=== PATIENT | male | born 1950 | race Asian ===

== ENCOUNTER 2020-12-21 13:29 | Outpatient (REF) | payer MEDICARE, SELFPAY ==
[2020-12-21 14:31] LABS: MANUAL DIFF FLAG NO
[2020-12-21 14:37] LABS: Basophils Absolute Auto 0.1 X10*3/uL (0.0-0.2); Basophils Percent Auto 0.7 % (0-2); Eosinophils Absolute Auto 0.4 X10*3/uL (0.0-0.4); Eosinophils Percent Auto 6.2 % (0-4); Hematocrit 30.8 % (42-52); Hemoglobin 9.8 g/dl (14.0-18.0); Imm Gran Abs Auto 0.02 X10*3/uL (0.00-0.03); Imm Gran Pct Auto 0.3 % (0.0-0.4); Lymphocytes Absolute Auto 1.4 X10*3/uL (1.2-4.9); Lymphocytes Percent Auto 21.2 % (20-40); Mean Corpuscular HGB Conc 31.8 g/dl (31.0-36.0); Mean Corpuscular Hemoglobin 30.6 pg (27.0-33.0); Mean Corpuscular Volume 96.3 fL (80-98); Mean Platelet Volume 10.5 fL (9.4-12.4); Monocytes Absolute Auto 0.5 X10*3/uL (0.1-1.2); Monocytes Percent Auto 7.1 % (2-11); Neutrophils Absolute Auto 4.4 X10*3/uL (2.0-8.3); Neutrophils Percent Auto 64.5 % (45-73); Platelet Count 203 X10*3/uL (160-400); Red Cell Distribution Width 14.7 % (11.0-16.0); White Blood Count 6.8 X10*3/uL (4.8-10.8)
[2020-12-21 14:45] LABS: Estimated Average Glucose 103 mg/dL; Hemoglobin A1c % 5.2 %
[2020-12-21 14:55] LABS: Cholesterol 213 mg/dL; HDL Cholesterol 41 mg/dL; LDL Cholesterol Calculated 136 mg/dl; Triglycerides 183 mg/dL
[2020-12-21 14:56] LABS: Alanine Aminotransferase 23 U/L (0-40); Albumin Level 3.6 g/dL (3.5-5.0); Alkaline Phosphatase 247 U/L (39-117); Anion Gap 13 (12-20); Aspartate Amino Transferase 24 U/L (5-37); Bilirubin Total 0.3 mg/dL (0.0-1.0); Blood Urea Nitrogen 19 mg/dL (9-16); Calcium 9.2 mg/dL (8.4-10.2); Carbon Dioxide 17 mmol/L (22-29); Chloride 108 mmol/L (96-108); Estimated Glomerular Filt Rate > 60; Glucose Random 202 mg/dL (60-115); Potassium 4.4 mmol/L (3.3-5.1); Sodium 134 mmol/L (135-145); Total Protein 7.5 g/dL (6.5-8.0)
[2020-12-21 15:18] LABS: Ferritin 1096 ng/mL (20-250)
[2020-12-21 15:24] LABS: Vitamin B12 682 pg/mL (200-900)
== END 2020-12-21 13:30 | disposition home or self-care (01) ==
LOC: HO.LAB 13:29
PROVIDERS: PCP Internal Medicine; Visit Provider Internal Medicine
DX: D64.89 Other specified anemias (principal); E11.9 Type 2 diabetes mellitus without complications; I10 Essential (primary) hypertension; Z85.51 Personal history of malignant neoplasm of bladder
CPT/HCPCS: 36415; 80053; 80061; 82607; 82728; 83036; 85025

== ENCOUNTER 2021-01-16 12:41 | Outpatient (REF) | payer MEDICARE, SELFPAY ==
[2021-01-19 14:31] LABS: TS Negative Control Passed; TS Panel A 4; TS Panel B 0; TS Positive Control Passed; TSpotTB Negative (SeeBelow)
== END 2021-01-16 12:42 | disposition home or self-care (01) ==
LOC: HO.LAB 12:41
PROVIDERS: PCP Internal Medicine; Visit Provider Internal Medicine
DX: Z11.7 Encounter for testing for latent tuberculosis infection (principal)
CPT/HCPCS: 36415; 86481

== ENCOUNTER → 2021-02-14 15:26 | Outpatient (BNVA) | payer MEDICARE, SELFPAY | PROVIDERS: PCP Internal Medicine; Visit Provider Urology | DX: N39.0 Urinary tract infection, site not specified (principal); R39.15 Urgency of urination; C67.9 Malignant neoplasm of bladder, unspecified | CPT/HCPCS: 99202 ==

== ENCOUNTER 2021-03-12 14:25 | Emergency (ER) | payer MEDICARE, SELFPAY ==
--- NOTE | ~2021-03-12 | XR_ITS ---
EXAMINATION: XR CHEST CLINICAL INFORMATION: Fever COMPARISON: 05/26/2019 TECHNIQUE: Frontal view of the chest was obtained. FINDINGS: No significant abnormality is noted involving the heart, lungs, mediastinum, bony thorax or soft tissues. XR/XR chest 1V IMPRESSION: Unremarkable examination.
[2021-03-12 15:44] VITALS: BP 139/71; PULSE 75; RESP 20; TEMP 36.4; O2SAT 99; BMI 23.8
--- NOTE | 2021-03-12 18:19 | ED_ITS ---
HPI - Fever General Chief Complaint: Fever Stated Complaint: chills fever Time Seen by Provider: 03/12/21 18:19 Source: patient and family (Spouse) Mode of arrival: ambulatory Limitations: no limitations History of Present Illness HPI Narrative: 70-year-old male came in for evaluation of fever and chills. 70-year-old male with history of urinary bladder cancer status post radical cystectomy with ileal conduit history of recurrent urinary tract infections in the past, patient came in with intermittent subjective fever and chills for the past few days. Patient is following with Dr. Narayan for post cancer follow-up. Patient in the emergency department is afebrile. Patient takes Macrobid once a day for the past 3 months as prophylactic antibiotic. Related Data Previous Rx's Medication Instructions Recorded levofloxacin 750 mg tablet 750 mg PO DAILY #7 tab 03/12/21 Allergies Allergy/AdvReac Type Severity Reaction Status Date / Time aspirin Allergy Unknown Verified 03/12/21 15:43 ibuprofen AdvReac Unknown Verified 03/12/21 15:43 Review of Systems Review of Systems: All other systems are reviewed and are negative Constitutional: Reports as per HPI and Reports no additional constitutional complaints Eyes: Reports as per HPI and Reports no additional eye complaints Reports system reviewed and no additional complaints, except as documented Cardiovascular: Reports as per HPI and Reports no additional cardiovascular complaints Respiratory: Reports as per HPI and Reports no additional respiratory complaints Gastrointestinal: Reports as per HPI and Reports no additional gastrointestinal complaints Genitourinary: Reports no additional female genitourinary complaints Musculoskeletal: Reports no additional musculoskeletal complaints Skin/Breast: Reports system reviewed and no additional complaints, except as do cu Psychiatric: Reports no additional psychiatric complaints Endocrine: Reports no additional endocrine complaints Hematologic/Lymphatic: Reports no additional hematologic/lymphatic complaints Allergic/Immunologic: Reports no additional allergic/immunologic complaints Reports system reviewed and no additional complaints, except as documented and Reports Abnormal speech present [facility] Past Medical History Medical History Asthma Bladder cancer Diabetes Social History Social History Advance Directives: No Advance Directives Information Provided: Yes Physical Exam Vital Signs: Vital Signs: Last Vital Signs Temp 97.6 F 03/12/21 15:44 Pulse 75 03/12/21 15:44 Resp 20 03/12/21 15:44 BP 139/71 03/12/21 15:44 Pulse Ox 99 03/12/21 15:44 Body Mass Index 23.8 Vital signs have been reviewed as appeared to be correct. Blood pressure normal. Heart rate normal. Respiration rate normal. Temperature normal. Oxygen saturation normal. Appearance: Alert. Oriented X3. No acute distress. Head: Normal external exam. Normocephalic. Atraumatic. No Walsh signs noted. No raccoon eyes noted Eyes: PERRLA. EOMI. Conjunctiva and sclera normal. Eyelids normal. ENT: TM's Normal. Pharynx normal. Uvula midline. Moist mucous membranes. No trismus noted. No drooling noted. No muffled voice noted. Neck: Normal inspection. Neck supple. FROM. No adenopathy. Thyroid Normal. No meningeal signs. No neck mass noted. CVS: Normal heart rate and rhythm. Heart sound normal. No murmurs noted. Pulses normal throughout. Respiratory: No respiratory distress. Painless inspiration. Breath sounds nor mal. No wheezes/rales/rhonchi noted. Chest nontender. No accessory muscle usage noted or decreased air movement noted. Abdomen: Soft and nontender. Bowel sounds normal in all 4 quadrants. No distent ion noted. No organomegaly noted. No visible injury noted. Back: No CVA tenderness. Full range of motion noted. External ring urine bag connected to ileal conduit. Skin: Skin warm and dry. Normal skin color. Normal skin turgor. No rashes/lesions/lacerations noted. Extremities: No lower extremity edema. Extremities exhibit normal range of motion. Extremities nontender. Neuro: Oriented X 3. No motor deficit. No sensory deficit. Reflexes normal. Course Course Course Narrative: Assessment and plan. This is a 70-year-old male with ileal conduit and prone to UTIs patient is taking prophylactically Macrobid daily, urine appear to be infected and the source of patient's symptoms will start the patient on Levaquin for 7 days and encouraged to drink plenty of fluids. MDM - Fever Lab Data Attestation: I reviewed the patient's lab results. Result diagrams: 03/12/21 19:07 03/12/21 19:07 Labs: Lab Results 03/12/21 03/12/21 03/12/21 Range/Units 19:07 19:07 19:07 WBC 7.5 (4.8-10.8) X10*3/uL RBC 3.79 L (4.60-5.80) X10*6/uL Hgb 11.6 L (14.0-18.0) g/dl Hct 35.1 L (42-52) % MCV 92.6 (80-98) fL MCH 30.6 (27.0-33.0) pg MCHC 33.0 (31.0-36.0) g/dl RDW 13.1 (11.0-16.0) % Plt Count 152 L D (160-400) X10*3/uL MPV 9.9 (9.4-12.4) fL Immature Gran % (Auto) 0.4 (0.0-0.4) % Neut % (Auto) 64.7 (45-73) % Lymph % (Auto) 22.0 (20-40) % Webb % (Auto) 8.3 (2-11) % Eos % (Auto) 4.2 H (0-4) % Baso % (Auto) 0.4 (0-2) % Lymph # (Auto) 1.6 (1.2-4.9) X10*3/uL Webb # (Auto) 0.6 (0.1-1.2) X10*3/uL Eos # (Auto) 0.3 (0.0-0.4) X10*3/uL Baso # (Auto) 0.0 (0.0-0.2) X10*3/uL Abs Immat Gran (auto) 0.03 (0.00-0.03) X10*3/uL Absolute Neuts (auto) 4.8 (2.0-8.3) X10*3/uL Absolute Nucleated RBC 0.000 (0.0-0.012) X10*3/uL Nucleated RBC % (auto) 0.0 (0.0-0.2) /100WBC Smear Tech's Comments VERIFIED Sodium 133 L (135-145) mmol/L Potassium 4.3 (3.3-5.1) mmol/L Chloride 105 (96-108) mmol/L Carbon Dioxide 18 L (22-29) mmol/L Anion Gap 14 (12-20) BUN 22 H (9-16) mg/dL Creatinine 1.24 (0.5-1.4) mg/dL Estim Creat Clear Calc 41.5 Estimated GFR 57 Random Glucose 177 H (60-115) mg/dL Lactic Acid 1.5 (0.5-2.0) mmol/L Calcium 9.0 (8.4-10.2) mg/dL Urine Color Urine Appearance Urine pH (5.0-8.0) Ur Specific [place] (1.005-1.025) Urine Protein (NEG-TRACE) MG/DL Urine Glucose (UA) (NEG) MG/DL Urine Ketones (NEG) MG/DL Urine Blood (NEG) Urine Nitrite (NEG) Ur Leukocyte Esterase (NEG) Urine RBC (0) /HPF Urine WBC (0-4) /HPF Ur Squamous Epith Cells /LPF Urine Bacteria /LPF 03/12/21 Range/Units 20:00 WBC (4.8-10.8) X10*3/uL RBC (4.60-5.80) X10*6/uL Hgb (14.0-18.0) g/dl Hct (42-52) % MCV (80-98) fL MCH (27.0-33.0) pg MCHC (31.0-36.0) g/dl RDW (11.0-16.0) % Plt Count (160-400) X10*3/uL MPV (9.4-12.4) fL Immature Gran % (Auto) (0.0-0.4) % Neut % (Auto) (45-73) % Lymph % (Auto) (20-40) % Webb % (Auto) (2-11) % Eos % (Auto) (0-4) % Baso % (Auto) (0-2) % Lymph # (Auto) (1.2-4.9) X10*3/uL Webb # (Auto) (0.1-1.2) X10*3/uL Eos # (Auto) (0.0-0.4) X10*3/uL Baso # (Auto) (0.0-0.2) X10*3/uL Abs Immat Gran (auto) (0.00-0.03) X10*3/uL Absolute Neuts (auto) (2.0-8.3) X10*3/uL Absolute Nucleated RBC (0.0-0.012) X10*3/uL Nucleated RBC % (auto) (0.0-0.2) /100WBC Smear Tech's Comments Sodium (135-145) mmol/L Potassium (3.3-5.1) mmol/L Chloride (96-108) mmol/L Carbon Dioxide (22-29) mmol/L Anion Gap (12-20) BUN (9-16) mg/dL Creatinine (0.5-1.4) mg/dL Estim Creat Clear Calc Estimated GFR Random Glucose (60-115) mg/dL Lactic Acid (0.5-2.0) mmol/L Calcium (8.4-10.2) mg/dL Urine Color YELLOW Urine Appearance HAZY Urine pH 6.0 (5.0-8.0) Ur Specific [place] <= 1.005 (1.005-1.025) Urine Protein TRACE (NEG-TRACE) MG/DL Urine Glucose (UA) NEG (NEG) MG/DL Urine Ketones NEG (NEG) MG/DL Urine Blood 1+ H (NEG) Urine Nitrite POS H (NEG) Ur Leukocyte Esterase 3+ H (NEG) Urine RBC 1-4 (0) /HPF Urine WBC 15-29 H (0-4) /HPF Ur Squamous Epith Cells NONE /LPF Urine Bacteria 2+ /LPF Imaging Data Chest x-ray: Radiologist's impression: No acute pathology. Discharge Plan Discharge Clinical Impression: Urinary tract infection Qualifiers: Urinary tract infection type: site unspecified Hematuria presence: without hematuria Qualified Code(s): N39.0 - Urinary tract infection, site not specified Patient Disposition: Home, Self-Care Instructions: Urinary Tract Infection in Older Adults (ED) Prescriptions: New levofloxacin 750 mg tablet 750 mg PO DAILY Qty: 7 RF: 0 Referrals: Hilary Jimenez MD [Primary Care Provider] - 2 days
[2021-03-12 19:14] LABS: Basophils Percent Auto 0.4 % (0-2); Eosinophils Absolute Auto 0.3 X10*3/uL (0.0-0.4); Eosinophils Percent Auto 4.2 % (0-4); Hematocrit 35.1 % (42-52); Hemoglobin 11.6 g/dl (14.0-18.0); Imm Gran Abs Auto 0.03 X10*3/uL (0.00-0.03); Imm Gran Pct Auto 0.4 % (0.0-0.4); Lymphocytes Absolute Auto 1.6 X10*3/uL (1.2-4.9); MANUAL DIFF FLAG SCAN; Mean Corpuscular Hemoglobin 30.6 pg (27.0-33.0); Mean Corpuscular Volume 92.6 fL (80-98); Mean Platelet Volume 9.9 fL (9.4-12.4); Monocytes Absolute Auto 0.6 X10*3/uL (0.1-1.2); Monocytes Percent Auto 8.3 % (2-11); Neutrophils Absolute Auto 4.8 X10*3/uL (2.0-8.3); Neutrophils Percent Auto 64.7 % (45-73); Platelet Count 152 X10*3/uL (160-400); Red Blood Count 3.79 X10*6/uL (4.60-5.80); Red Cell Distribution Width 13.1 % (11.0-16.0); SCAN SMEAR FLAG 1; White Blood Count 7.5 X10*3/uL (4.8-10.8)
[2021-03-12 19:34] LABS: Lactic Acid 1.5 mmol/L (0.5-2.0); SLIDE REVIEW VERIFIED
[2021-03-12 19:36] LABS: Anion Gap 14 (12-20); Blood Urea Nitrogen 22 mg/dL (9-16); Carbon Dioxide 18 mmol/L (22-29); Chloride 105 mmol/L (96-108); Creatinine Clr Calc Pharmacy 41.5; Estimated Glomerular Filt Rate 57; Glucose Random 177 mg/dL (60-115); Potassium 4.3 mmol/L (3.3-5.1); Sodium 133 mmol/L (135-145)
[2021-03-12 20:00] VITALS: BP 132/78; PULSE 82; RESP 20; TEMP 36.6; O2SAT 97
[2021-03-12 20:12] LABS: Appearance Urine HAZY; Color Urine YELLOW; Glucose Urine UA NEG (NEG); Leukocyte Esterase Urine 3+ (NEG); Nitrite Urine POS (NEG); Specific Gravity - Urine <= 1.005 (1.005-1.025); UACC Culture Trigger YES; Urine Blood 1+ (NEG); Urine Ketones NEG (NEG); Urine Protein TRACE MG/DL (NEG-TRACE)
[2021-03-12 20:15] LABS: Bacteria Urine 2+ /LPF
[2021-03-12 20:22] LABS: COVID-19 Test Negative (Negative); IDNOW Serial# 9DD0AD1C
[2021-03-12] MEDS: levoFLOXacin 750 MG TABLET PO (20:58)
== END 2021-03-12 21:09 | disposition home or self-care (01) ==
PROVIDERS: Emergency Provider Emergency Medicine; PCP Internal Medicine
DX: N39.0 Urinary tract infection, site not specified (principal); R50.9 Fever, unspecified; Z20.822 Contact with and (suspected) exposure to COVID-19
CPT/HCPCS: 36415; 71045; 80048; 81001; 83605; 85025; 87040; 87086; 87088; 87186; 87635; 99284

== ENCOUNTER 2021-03-23 09:18 | Outpatient (REF) | payer MEDICARE, SELFPAY ==
[2021-03-23 10:04] LABS: Estimated Average Glucose 126 mg/dL
[2021-03-23 10:18] LABS: Alanine Aminotransferase 22 U/L (0-40); Albumin Level 3.7 g/dL (3.5-5.0); Alkaline Phosphatase 158 U/L (39-117); Anion Gap 14 (12-20); Aspartate Amino Transferase 21 U/L (5-37); Bilirubin Total 0.3 mg/dL (0.0-1.0); Blood Urea Nitrogen 24 mg/dL (9-16); Calcium 8.8 mg/dL (8.4-10.2); Carbon Dioxide 18 mmol/L (22-29); Chloride 107 mmol/L (96-108); Estimated Glomerular Filt Rate 58; Glucose Random 123 mg/dL (60-115); Potassium 4.4 mmol/L (3.3-5.1); Sodium 135 mmol/L (135-145)
== END 2021-03-23 09:19 | disposition home or self-care (01) ==
LOC: HO.LAB 09:18
PROVIDERS: PCP Internal Medicine; Visit Provider Internal Medicine
DX: E11.9 Type 2 diabetes mellitus without complications (principal); D63.8 Anemia in other chronic diseases classified elsewhere; E78.2 Mixed hyperlipidemia; I10 Essential (primary) hypertension; Z85.51 Personal history of malignant neoplasm of bladder
CPT/HCPCS: 36415; 80053; 83036

== ENCOUNTER 2021-03-30 09:10 | Outpatient (REF) | payer MEDICARE, SELFPAY ==
[2021-03-30 10:43] LABS: Blood Urea Nitrogen 15 mg/dL (9-16); Estimated Glomerular Filt Rate > 60
== END 2021-03-30 09:11 | disposition home or self-care (01) ==
LOC: HO.LAB 09:10
PROVIDERS: PCP Internal Medicine; Visit Provider Urology
DX: C67.9 Malignant neoplasm of bladder, unspecified (principal); R39.15 Urgency of urination
CPT/HCPCS: 36415; 82565; 84520

== ENCOUNTER 2021-04-08 13:28 | Outpatient (REF) | payer OTHER, SELFPAY ==
--- NOTE | ~2021-04-08 | CT_ITS ---
EXAMINATION: CT ABDOMEN AND PELVIS WITHOUT AND WITH CONTRAST CLINICAL INFORMATION: Bladder cancer. COMPARISON: Outside CT of the abdomen and pelvis August and October 2020. TECHNIQUE: Noncontrast CT of the abdomen and pelvis is performed followed by split bolus contrast-enhanced images using 85 mL Omnipaque 350 contrast.? Postcontrast imaging is performed during the combined nephrogram and excretion phase. Sagittal and coronal reformatted images were obtained on the technologist's workstation for both the precontrast and postcontrast phases. This CT examination was performed using dose optimization techniques as appropriate, variously including the following: *Automated exposure control *Adjustment of mA and/or kV according to patient size (this includes techniques or standardized protocols for targeted exams where dose is matched to indication/reason for exam; i.e. extremities or head) *Use of iterative reconstruction technique DLP: 500 mGy-cm FINDINGS: LUNG BASES: There is linear scarring or subsegmental atelectasis at the left lung base. The lung bases are otherwise clear. LIVER, GALLBLADDER, AND BILIARY TREE: There is question of mild cirrhotic change at the liver with hypertrophy of the left lobe and caudate lobe and slightly irregular nodular contour. No focal liver lesion is seen. The gallbladder is normal. There is no biliary duct dilatation. PANCREAS: Unremarkable SPLEEN: Unremarkable ADRENAL GLANDS: Unremarkable KIDNEYS AND URETERS: There is moderate right hydronephrosis. This is slightly increased from outside CT of the abdomen and pelvis. The right ureter does not appear dilated. There is question of mild wall thickening and enhancement of the right ureter, particularly proximally. There is delayed excretion of contrast into the right renal collecting system compared to the left. The left kidney is normal. The left ureter is normal. BLADDER: The bladder has been removed. There is a right lower quadrant urostomy. There is a small parastomal hernia containing fat at the urostomy site. GASTROINTESTINAL TRACT: Post right lower quadrant ileal conduit and urostomy. There is question of mild wall thickening of the colon/colitis versus changes due to underdistention. Small and large bowel is otherwise unremarkable. The appendix is not seen. The stomach is unremarkable. ABDOMINAL WALL: Small parastomal hernia containing fat adjacent to the urostomy. Small umbilical hernia containing fat. LYMPH NODES: There are no enlarged lymph nodes. There are small retroperitoneal lymph nodes in the abdomen. There is no inguinal lymphadenopathy. There are surgical clips in the pelvis suggestive of previous lymph node dissection. VASCULAR: Unremarkable PELVIC VISCERA: The prostate gland has been removed. OSSEUS STRUCTURES: No suspicious bone lesion. Mild degenerative changes of the spine and hip joints. CT/CT urogram IMPRESSION: Postoperative change following radical cystectomy with right lower quadrant ileal conduit and urostomy. Moderate right hydronephrosis. This is slightly increased from outside CT scans of the abdomen and pelvis. The right ureter does not appear dilated. There is question of right ureteral wall thickening and enhancement, particularly proximally. Normal-appearing left kidney and ureter. Small parastomal hernia containing fat. Evidence of previous lymph node dissection. Question mild cirrhotic changes of the liver.
[2021-04-08] MEDS: iohexoL 350 MG/ML 100 ML INFUS..BTL IV (14:58)
== END 2021-04-08 13:29 | disposition home or self-care (01) ==
LOC: HO.CT 13:28
PROVIDERS: Visit Provider Urology
DX: C67.9 Malignant neoplasm of bladder, unspecified (principal)
CPT/HCPCS: 74178; Q9967

== ENCOUNTER 2021-04-18 15:03 | Outpatient (REF) | payer OTHER, SELFPAY ==
[2021-04-18 16:37] LABS: Urine Cytology See Pathology rpt
== END 2021-04-18 15:04 | disposition home or self-care (01) ==
LOC: HO.LAB 15:03
PROVIDERS: PCP Internal Medicine; Visit Provider Urology
DX: C67.9 Malignant neoplasm of bladder, unspecified (principal); N13.30 Unspecified hydronephrosis
CPT/HCPCS: 88112; 99212

== ENCOUNTER 2021-05-27 10:39 | Emergency (ER) | payer OTHER, SELFPAY ==
--- NOTE | 2021-05-27 | ECG_ITS ---
Test Reason : CHEST PAIN Blood Pressure : / mmHG Vent. Rate : 071 BPM Atrial Rate : 071 BPM P-R Int : 134 ms QRS Dur : 078 ms QT Int : 390 ms P-R-T Axes : 022 -43 117 degrees QTc Int : 423 ms Normal sinus rhythm Left anterior fascicular block ST & T wave abnormality, consider anterolateral ischemia Abnormal ECG No previous ECGs available Referred By: Generic ED Physician Electronically Signed By:CESARIO MORALES MD
[2021-05-27 11:34] VITALS: BP 149/65; PULSE 70; RESP 16; TEMP 36.7; O2SAT 99; BMI 24.7
[2021-05-27 13:55] LABS: MANUAL DIFF FLAG NO
[2021-05-27 14:00] LABS: Basophils Absolute Auto 0.1 X10*3/uL (0.0-0.2); Basophils Percent Auto 0.7 % (0-2); Eosinophils Absolute Auto 0.4 X10*3/uL (0.0-0.4); Eosinophils Percent Auto 4.5 % (0-4); Hematocrit 35.8 % (42-52); Hemoglobin 11.7 g/dl (14.0-18.0); Imm Gran Abs Auto 0.04 X10*3/uL (0.00-0.03); Imm Gran Pct Auto 0.5 % (0.0-0.4); Lymphocytes Absolute Auto 1.6 X10*3/uL (1.2-4.9); Lymphocytes Percent Auto 20.2 % (20-40); Mean Corpuscular HGB Conc 32.7 g/dl (31.0-36.0); Mean Corpuscular Volume 91.8 fL (80-98); Mean Platelet Volume 10.7 fL (9.4-12.4); Monocytes Absolute Auto 0.5 X10*3/uL (0.1-1.2); Monocytes Percent Auto 5.6 % (2-11); Neutrophils Absolute Auto 5.5 X10*3/uL (2.0-8.3); Neutrophils Percent Auto 68.5 % (45-73); Platelet Count 155 X10*3/uL (160-400); Red Cell Distribution Width 14.2 % (11.0-16.0)
[2021-05-27 14:17] LABS: Troponin-I High Sensitivity < 3.5 ng/L (<3.5-35.0)
[2021-05-27 14:18] LABS: Alanine Aminotransferase 27 U/L (0-40); Albumin Level 4.3 g/dL (3.5-5.0); Alkaline Phosphatase 189 U/L (39-117); Anion Gap 14 (12-20); Aspartate Amino Transferase 30 U/L (5-37); Bilirubin Direct 0.2 mg/dL (0.0-0.5); Bilirubin Total 0.4 mg/dL (0.0-1.0); Blood Urea Nitrogen 18 mg/dL (9-16); Calcium 9.2 mg/dL (8.4-10.2); Carbon Dioxide 18 mmol/L (22-29); Chloride 103 mmol/L (96-108); Creatinine Clr Calc Pharmacy 42.6; Estimated Glomerular Filt Rate 60; Glucose Random 269 mg/dL (60-115); Lipase 60 U/L (8-78); Potassium 4.5 mmol/L (3.3-5.1); Sodium 130 mmol/L (135-145); Total Protein 8.1 g/dL (6.5-8.0)
--- NOTE | 2021-05-27 14:23 | ED.MALEGU ---
HPI - Male Genitourinary General Chief complaint: Urogenital-Male Stated complaint: Blood in urine/chest pain Time Seen by Provider: 05/27/21 14:17 Source: patient and family () Mode of arrival: ambulatory Limitations: no limitations History of Present Illness HPI Narrative: 71 years old male came in for evaluation of blood in the urine. This is a 71-year-old male with history of urinary bladder cancer status post radical cystectomy with ileal conduit, patient with history of recurrent urinary tract infection in the past patient is on daily Macrobid for prophylaxis. Patient came in today because he noticed some blood in the urine bag intermittently since this morning, but declined any flank pain, no fever, no chills. Patient has been having bilateral chest pain around the nipple for the past 25 days pain comes and goes but mostly constant, no radiation, no other associated symptoms. No difficulty breathing. Related Data Home Medications Medication Instructions Recorded Confirmed albuterol sulfate 90 mcg/actuation 0 mcg INHALATION 04/18/21 aerosol inhaler amlodipine 5 mg tablet 5 mg PO DAILY 04/18/21 atorvastatin 10 mg tablet 10 mg PO DAILY 04/18/21 blood sugar diagnostic (FreeStyle #10 ea 04/18/21 Lite Strips) fluticasone 113 mcg-salmeterol 14 1 inh INHALATION BID 04/18/21 mcg/actuation breath activated powdr metformin 500 mg tablet 500 mg PO DAILY 04/18/21 montelukast 10 mg tablet 10 mg PO DAILY 04/18/21 nitrofurantoin macrocrystal 100 mg 100 mg PO BEDTIME 04/18/21 capsule tiotropium bromide 1.25 2 puff INHALATION DAILY 04/18/21 mcg/actuation mist for inhalation (Spiriva Respimat) Previous Rx's Medication Instructions Recorded levofloxacin 750 mg tablet 750 mg PO DAILY #7 tab 03/12/21 nitrofurantoin macrocrystal 100 mg 100 mg PO BEDTIME 90 Days #90 cap 04/18/21 capsule Allergies Allergy/AdvReac Type Severity Reaction Status Date / Time aspirin Allergy Unknown Verified 04/18/21 15:34 ibuprofen AdvReac Unknown Verified 04/18/21 15:34 Review of Systems Review of Systems: All other systems are reviewed and are negative Constitutional: Reports as per HPI and Reports no additional constitutional complaints Eyes: Reports as per HPI and Reports no additional eye complaints Reports system reviewed and no additional complaints, except as documented Cardiovascular: Reports as per HPI and Reports no additional cardiovascular complaints Respiratory: Reports as per HPI and Reports no additional respiratory complaints Gastrointestinal: Reports as per HPI and Reports no additional gastrointestinal complaints Genitourinary: Reports no additional female genitourinary complaints Musculoskeletal: Reports no additional musculoskeletal complaints Skin/Breast: Reports system reviewed and no additional complaints, except as docu Psychiatric: Reports no additional psychiatric complaints Endocrine: Reports no additional endocrine complaints Hematologic/Lymphatic: Reports no additional hematologic/lymphatic complaints Allergic/Immunologic: Reports no additional allergic/immunologic complaints Reports system reviewed and no additional complaints, except as documented and Reports Abnormal speech present [facility] Past Medical History Medical History Asthma Bladder cancer Diabetes Social History Social History Advance Directives: No Advance Directives Information Provided: No Physical Exam Vital Signs: Vital Signs: Last Vital Signs Temp 98.1 F 05/27/21 14:26 Pulse 69 05/27/21 14:26 Resp 18 05/27/21 14:26 BP 151/65 H 05/27/21 14:26 Pulse Ox 99 05/27/21 14:26 Body Mass Index 24.7 Vital signs have been reviewed as appeared to be correct. Blood pressure normal. Heart rate normal. Respiration rate normal. Temperature normal. Oxygen saturation normal. Appearance: Alert. Oriented X3. No acute distress. Head: Normal external exam. Normocephalic. Atraumatic. No Walsh signs noted. No raccoon eyes noted Eyes: PERRLA. EOMI. Conjunctiva and sclera normal. Eyelids normal. ENT: TM's Normal. Pharynx normal. Uvula midline. Moist mucous membranes. No trismus noted. No drooling noted. No muffled voice noted. Neck: Normal inspection. Neck supple. FROM. No adenopathy. Thyroid Normal. No meningeal signs. No neck mass noted. CVS: Normal heart rate and rhythm. Heart sound normal. No murmurs noted. Pulses normal throughout. Respiratory: No respiratory distress. Painless inspiration. Breath sounds normal. No wheezes/rales/rhonchi noted. Chest nontender. No accessory muscle usage noted or decreased air movement noted. Abdomen: Soft and nontender. Bowel sounds normal in all 4 quadrants. No distention noted. No organomegaly noted. No visible injury noted. Back: No CVA tenderness. Full range of motion noted. Skin: Skin warm and dry. Normal skin color. Normal skin turgor. No rashes/lesions/lacerations noted. Extremities: No lower extremity edema. Extremities exhibit normal range of motion. Extremities nontender. Neuro: Oriented X 3. Cranial nerve exam: II-XII are grossly intact No motor deficit. No sensory deficit. Reflexes normal. Course Course Course Narrative: Assessment and plan. 71-year-old male with a history of bladder cancer, patient with chronic bladder conduit using urine back, patient is on antibiotic prophylactically by the urologist, patient came in for gross hematuria evaluation, urine now is clearing in the back with no bleeding, patient has stable vital signs, and stable H&H. UA is showing probably contaminating urine, will not start patient on new antibiotic. Gross hematuria that cleared in the emergency department. Patient also been complaining of bilateral chest pain around the nipples with no radiation, troponin is negative. [facility] - Male Genitourinary Medical Records Attestation: I reviewed the patient's medical records. Lab Data Attestation: I reviewed the patient's lab results. Result diagrams: 05/27/21 13:35 05/27/21 13:35 Labs: Lab Results 05/27/21 05/27/21 05/27/21 Range/Units 13:35 13:35 13:35 WBC 8.0 (4.8-10.8) X10*3/uL RBC 3.90 L (4.60-5.80) X10*6/uL Hgb 11.7 L (14.0-18.0) g/dl Hct 35.8 L (42-52) % MCV 91.8 (80-98) fL MCH 30.0 (27.0-33.0) pg MCHC 32.7 (31.0-36.0) g/dl RDW 14.2 (11.0-16.0) % Plt Count 155 L (160-400) X10*3/uL MPV 10.7 (9.4-12.4) fL Immature Gran % (Auto) 0.5 H (0.0-0.4) % Neut % (Auto) 68.5 (45-73) % Lymph % (Auto) 20.2 (20-40) % Iron % (Auto) 5.6 (2-11) % Eos % (Auto) 4.5 H (0-4) % Baso % (Auto) 0.7 (0-2) % Lymph # (Auto) 1.6 (1.2-4.9) X10*3/uL Iron # (Auto) 0.5 (0.1-1.2) X10*3/uL Eos # (Auto) 0.4 (0.0-0.4) X10*3/uL Baso # (Auto) 0.1 (0.0-0.2) X10*3/uL Abs Immat Gran (auto) 0.04 H (0.00-0.03) X10*3/uL Absolute Neuts (auto) 5.5 (2.0-8.3) X10*3/uL Absolute Nucleated RBC 0.000 (0.0-0.012) X10*3/uL Nucleated RBC % (auto) 0.0 (0.0-0.2) /100WBC Sodium 130 L (135-145) mmol/L Potassium 4.5 (3.3-5.1) mmol/L Chloride 103 (96-108) mmol/L Carbon Dioxide 18 L (22-29) mmol/L Anion Gap 14 (12-20) BUN 18 H (9-16) mg/dL Creatinine 1.19 (0.5-1.4) mg/dL Estim Creat Clear Calc 42.6 Estimated GFR 60 Random Glucose 269 H D (60-115) mg/dL Calcium 9.2 (8.4-10.2) mg/dL Total Bilirubin 0.4 (0.0-1.0) mg/dL Direct Bilirubin 0.2 (0.0-0.5) mg/dL AST 30 D (5-37) U/L ALT 27 (0-40) U/L Alkaline Phosphatase 189 H (39-117) U/L Troponin I High Sens < 3.5 (<3.5-35.0) ng/L Total Protein 8.1 H (6.5-8.0) g/dL Albumin 4.3 (3.5-5.0) g/dL Lipase 60 (8-78) U/L Urine Color Urine Appearance Urine pH (5.0-8.0) Ur Specific [place] (1.005-1.025) Urine Protein (NEG-TRACE) MG/DL Urine Glucose (UA) (NEG) MG/DL Urine Ketones (NEG) MG/DL Urine Blood (NEG) Urine Nitrite (NEG) Ur Leukocyte Esterase (NEG) Urine RBC (0) /HPF Urine WBC (0-4) /HPF Ur Squamous Epith Cells /LPF Ur Renal Epithelial Cell /LPF Urine Bacteria /LPF 05/27/21 Range/Units 14:31 WBC (4.8-10.8) X10*3/uL RBC (4.60-5.80) X10*6/uL Hgb (14.0-18.0) g/dl Hct (42-52) % MCV (80-98) fL MCH (27.0-33.0) pg MCHC (31.0-36.0) g/dl RDW (11.0-16.0) % Plt Count (160-400) X10*3/uL MPV (9.4-12.4) fL Immature Gran % (Auto) (0.0-0.4) % Neut % (Auto) (45-73) % Lymph % (Auto) (20-40) % Iron % (Auto) (2-11) % Eos % (Auto) (0-4) % Baso % (Auto) (0-2) % Lymph # (Auto) (1.2-4.9) X10*3/uL Iron # (Auto) (0.1-1.2) X10*3/uL Eos # (Auto) (0.0-0.4) X10*3/uL Baso # (Auto) (0.0-0.2) X10*3/uL Abs Immat Gran (auto) (0.00-0.03) X10*3/uL Absolute Neuts (auto) (2.0-8.3) X10*3/uL Absolute Nucleated RBC (0.0-0.012) X10*3/uL Nucleated RBC % (auto) (0.0-0.2) /100WBC Sodium (135-145) mmol/L Potassium (3.3-5.1) mmol/L Chloride (96-108) mmol/L Carbon Dioxide (22-29) mmol/L Anion Gap (12-20) BUN (9-16) mg/dL Creatinine (0.5-1.4) mg/dL Estim Creat Clear Calc Estimated GFR Random Glucose (60-115) mg/dL Calcium (8.4-10.2) mg/dL Total Bilirubin (0.0-1.0) mg/dL Direct Bilirubin (0.0-0.5) mg/dL AST (5-37) U/L ALT (0-40) U/L Alkaline Phosphatase (39-117) U/L Troponin I High Sens (<3.5-35.0) ng/L Total Protein (6.5-8.0) g/dL Albumin (3.5-5.0) g/dL Lipase (8-78) U/L Urine Color STRAW Urine Appearance HAZY Urine pH 7.0 (5.0-8.0) Ur Specific [place] <= 1.005 (1.005-1.025) Urine Protein NEG (NEG-TRACE) MG/DL Urine Glucose (UA) 100 H (NEG) MG/DL Urine Ketones NEG (NEG) MG/DL Urine Blood 3+ H (NEG) Urine Nitrite POS H (NEG) Ur Leukocyte Esterase 3+ H (NEG) Urine RBC 0-2 (0) /HPF Urine WBC 5-9 H (0-4) /HPF Ur Squamous Epith Cells NONE /LPF Ur Renal Epithelial Cell 1+ /LPF Urine Bacteria 2+ /LPF ECG Data Interpretation: Normal sinus rhythm, left axis deviation, normal intervals, two views T-wave inversion in the lateral leads. Discharge Plan Discharge Clinical Impression: Hematuria of undiagnosed cause Patient Disposition: Home, Self-Care Instructions: Hematuria (ED) Prescriptions: No Action levofloxacin 750 mg tablet 750 mg PO DAILY Qty: 7 RF: 0 nitrofurantoin macrocrystal 100 mg capsule 100 mg PO BEDTIME 90 Days Qty: 90 RF: 1 Referrals: Hilary Jimenez MD [Primary Care Provider] - 2 days Mauro Narayan MD [Physician] - 2 days
[2021-05-27 14:26] VITALS: BP 151/65; PULSE 69; RESP 18; TEMP 36.7; O2SAT 99
[2021-05-27 14:38] LABS: Appearance Urine HAZY; Color Urine STRAW; Glucose Urine UA 100 MG/DL (NEG); Leukocyte Esterase Urine 3+ (NEG); Nitrite Urine POS (NEG); Specific Gravity - Urine <= 1.005 (1.005-1.025); UACC Culture Trigger YES; Urine Blood 3+ (NEG); Urine Ketones NEG (NEG); Urine Protein NEG (NEG-TRACE)
[2021-05-27 15:24] LABS: Bacteria Urine 2+ /LPF; RBC Urine 0-2 /HPF (0); Renal Epithelial Cells Urine 1+ /LPF
== END 2021-05-27 15:57 | disposition home or self-care (01) ==
PROVIDERS: Student in an Organized Health Care Education/Training Program; Emergency Provider Emergency Medicine; PCP Internal Medicine
DX: R31.9 Hematuria, unspecified (principal); R07.9 Chest pain, unspecified; Z79.899 Other long term (current) drug therapy
CPT/HCPCS: 36415; 80048; 80076; 81001; 81003; 83690; 84484; 85025; 87086; 93005; 99283; 99284

== ENCOUNTER 2021-06-12 13:11 | Outpatient (REF) | payer OTHER, SELFPAY ==
--- NOTE | ~2021-06-12 | MM_ITS ---
EXAMINATION: MM DIAGNOSTIC DIGITAL BREAST TOMOSYNTHESIS, BILATERAL US DIAGNOSTIC ULTRASOUND BREAST, BILATERAL CLINICAL INFORMATION: 71-year-old male with bilateral subareolar breast pain and fullness. No prior breast imaging. COMPARISON: None. TECHNIQUE: Digital breast tomosynthesis is performed in both the craniocaudal and mediolateral oblique views along with computer-aided detection (CAD). Synthesized 2D images are generated from the tomosynthesis. Ultrasound of both breasts is targeted to the subareolar and periareolar regions. Grayscale imaging and color Doppler are performed without and with harmonics. FINDINGS: There are scattered areas of fibroglandular density (ACR BI-RADS breast composition Category b). There is moderate to mildly prominent bilateral gynecomastia in the retroareolar regions, slightly greater on right. There is no underlying mass or architectural abnormality. No abnormal calcifications. The axilla and skin contours are unremarkable. No skin thickening. Ultrasound demonstrates bilateral gynecomastia subareolar pattern. There is no cystic or solid mass. No skin thickening or edema tracking in soft tissue planes. Results are discussed with the patient at time of visit. MM/MM tomosynthesis diagnostic BI IMPRESSION: Bilateral gynecomastia. ASSESSMENT: BI-RADS 2: Benign RECOMMENDATION: Patient's bilateral gynecomastia may be managed based on the clinical impression. If clinically indicated, further evaluation may be considered with surgical consult. Decision to proceed with biopsy should be based on clinical grounds and degree of clinical concern.
== END 2021-06-12 13:12 | disposition home or self-care (01) ==
LOC: HO.MAMMO 13:11
PROVIDERS: Visit Provider Internal Medicine
DX: N62 Hypertrophy of breast (principal)
CPT/HCPCS: 76642; 77062; 77066

== ENCOUNTER 2021-06-24 10:32 | Outpatient (REF) | payer OTHER, SELFPAY ==
[2021-06-24 12:32] LABS: Estimated Average Glucose 134 mg/dL; Hemoglobin A1c % 6.3 %
[2021-06-24 12:57] LABS: Alanine Aminotransferase 32 U/L (0-40); Alkaline Phosphatase 185 U/L (39-117); Anion Gap 13 (12-20); Aspartate Amino Transferase 29 U/L (5-37); Bilirubin Total 0.6 mg/dL (0.0-1.0); Blood Urea Nitrogen 23 mg/dL (9-16); Calcium 9.1 mg/dL (8.4-10.2); Carbon Dioxide 18 mmol/L (22-29); Chloride 107 mmol/L (96-108); Cholesterol 142 mg/dL; Estimated Glomerular Filt Rate 59; Glucose Random 168 mg/dL (60-115); HDL Cholesterol 43 mg/dL; LDL Cholesterol Calculated 79 mg/dl; Potassium 4.4 mmol/L (3.3-5.1); Sodium 134 mmol/L (135-145); Total Protein 7.9 g/dL (6.5-8.0); Triglycerides 103 mg/dL
== END 2021-06-24 10:33 | disposition home or self-care (01) ==
LOC: HO.LAB 10:32
PROVIDERS: Absent Provider Internal Medicine; PCP Internal Medicine
DX: Z00.00 Encounter for general adult medical examination without abnormal findings (principal); N39.0 Urinary tract infection, site not specified; E78.2 Mixed hyperlipidemia; N18.31 Chronic kidney disease, stage 3a; D63.8 Anemia in other chronic diseases classified elsewhere; E11.9 Type 2 diabetes mellitus without complications
CPT/HCPCS: 36415; 80053; 80061; 83036; 87086; 87088; 87186; 99212

== ENCOUNTER 2021-09-25 11:29 | Outpatient (REF) | payer OTHER, MEDICAID, SELFPAY ==
[2021-09-25 13:49] LABS: MANUAL DIFF FLAG NO
[2021-09-25 13:55] LABS: Basophils Absolute Auto 0.1 X10*3/uL (0.0-0.2); Basophils Percent Auto 0.7 % (0-2); Eosinophils Absolute Auto 0.5 X10*3/uL (0.0-0.4); Eosinophils Percent Auto 6.8 % (0-4); Hemoglobin 10.8 g/dl (14.0-18.0); Imm Gran Abs Auto 0.08 X10*3/uL (0.00-0.03); Lymphocytes Absolute Auto 1.6 X10*3/uL (1.2-4.9); Lymphocytes Percent Auto 20.9 % (20-40); Mean Corpuscular HGB Conc 32.7 g/dl (31.0-36.0); Mean Corpuscular Hemoglobin 30.1 pg (27.0-33.0); Mean Corpuscular Volume 91.9 fL (80.0-98.0); Mean Platelet Volume 10.6 fL (9.4-12.4); Monocytes Absolute Auto 0.6 X10*3/uL (0.1-1.2); Monocytes Percent Auto 7.9 % (2-11); Neutrophils Absolute Auto 4.8 x10*3/uL (2.0-8.3); Neutrophils Percent Auto 62.7 % (45-73); Platelet Count 209 X10*3/uL (160-400); Red Blood Count 3.59 X10*6/uL (4.60-5.80); Red Cell Distribution Width 13.2 % (11.0-16.0); White Blood Count 7.6 X10*3/uL (4.8-10.8)
[2021-09-25 14:16] LABS: Estimated Average Glucose 134 mg/dL; Hemoglobin A1c % 6.3 %
[2021-09-25 14:20] LABS: Alanine Aminotransferase 25 U/L (0-40); Albumin Level 3.9 g/dL (3.5-5.0); Alkaline Phosphatase 198 U/L (39-117); Anion Gap 13 (12-20); Aspartate Amino Transferase 28 U/L (5-37); Bilirubin Total 0.5 mg/dL (0.0-1.0); Blood Urea Nitrogen 16 mg/dL (9-16); Calcium 9.1 mg/dL (8.4-10.2); Carbon Dioxide 20 mmol/L (22-29); Chloride 105 mmol/L (96-108); Estimated Glomerular Filt Rate 51; Glucose Fasting 137 mg/dL (60-99); Potassium 4.3 mmol/L (3.3-5.1); Sodium 134 mmol/L (135-145); Total Protein 7.4 g/dL (6.5-8.0)
[2021-09-27 15:07] LABS: TS Negative Control Passed; TS Panel A 3; TS Panel B 3; TS Positive Control Passed; TSpotTB Negative (Negative)
== END 2021-09-25 11:30 | disposition home or self-care (01) ==
LOC: HO.10HDL 11:29
PROVIDERS: Visit Provider Internal Medicine
DX: Z11.1 Encounter for screening for respiratory tuberculosis (principal); E11.9 Type 2 diabetes mellitus without complications; E78.00 Pure hypercholesterolemia, unspecified; J45.909 Unspecified asthma, uncomplicated; Z85.51 Personal history of malignant neoplasm of bladder
CPT/HCPCS: 36415; 80053; 83036; 85025; 86481

== ENCOUNTER 2021-09-26 12:50 | Outpatient (REF) | payer OTHER, MEDICAID, SELFPAY | END 2021-09-26 12:51 | disposition home or self-care (01) | LOC: HO.10HDL 12:50 | PROVIDERS: Visit Provider Internal Medicine | DX: D64.9 Anemia, unspecified (principal); E11.9 Type 2 diabetes mellitus without complications; I10 Essential (primary) hypertension; K74.69 Other cirrhosis of liver | CPT/HCPCS: 36415; 81256 ==

== ENCOUNTER 2021-10-16 15:59 | Outpatient (REF) | payer OTHER, MEDICAID, SELFPAY ==
[2021-10-16 16:13] LABS: MANUAL DIFF FLAG NO
[2021-10-16 16:57] LABS: Basophils Absolute Auto 0.1 X10*3/uL (0.0-0.2); Eosinophils Absolute Auto 1.3 X10*3/uL (0.0-0.4); Eosinophils Percent Auto 13.4 % (0-4); Hematocrit 35.6 % (42.0-52.0); Hemoglobin 11.5 g/dl (14.0-18.0); Imm Gran Abs Auto 0.03 X10*3/uL (0.00-0.03); Imm Gran Pct Auto 0.3 % (0.0-0.4); Immature Retic Fraction 12.7 % (2.3-13.4); Lymphocytes Absolute Auto 2.9 X10*3/uL (1.2-4.9); Lymphocytes Percent Auto 29.2 % (20-40); Mean Corpuscular HGB Conc 32.3 g/dl (31.0-36.0); Mean Corpuscular Hemoglobin 30.8 pg (27.0-33.0); Mean Corpuscular Volume 95.4 fL (80.0-98.0); Monocytes Absolute Auto 0.6 X10*3/uL (0.1-1.2); Monocytes Percent Auto 6.1 % (2-11); Neutrophils Absolute Auto 4.9 x10*3/uL (2.0-8.3); Platelet Count 189 X10*3/uL (160-400); Red Blood Count 3.73 X10*6/uL (4.60-5.80); Red Cell Distribution Width 14.3 % (11.0-16.0); Reticulocyte Percent 3.8 % (0.5-1.8); White Blood Count 9.8 X10*3/uL (4.8-10.8)
[2021-10-16 17:15] LABS: Alanine Aminotransferase 26 U/L (0-40); Albumin Level 4.4 g/dL (3.5-5.0); Alkaline Phosphatase 172 U/L (39-117); Anion Gap 12 (12-20); Aspartate Amino Transferase 30 U/L (5-37); Bilirubin Total 0.4 mg/dL (0.0-1.0); Blood Urea Nitrogen 27 mg/dL (9-16); Calcium 9.1 mg/dL (8.4-10.2); Carbon Dioxide 18 mmol/L (22-29); Chloride 110 mmol/L (96-108); Estimated Glomerular Filt Rate 47; Glucose Random 134 mg/dL (60-115); Lactate Dehydrogenase 186 U/L (118-273); Potassium 4.6 mmol/L (3.3-5.1); Sodium 135 mmol/L (135-145)
[2021-10-16 17:37] LABS: Ferritin 582 ng/mL (20-250)
[2021-10-16 17:49] LABS: Folate 3.1 ng/mL (> or = 4.0); Vitamin B12 388 pg/mL (200-900)
[2021-10-16 17:55] LABS: Erythrocyte Sedimentation Rate 40 MM/HR (0-15)
== END 2021-10-16 16:00 | disposition home or self-care (01) ==
LOC: HO.LAB 15:59
PROVIDERS: PCP Internal Medicine; Visit Provider Internal Medicine Medical Oncology
DX: D64.9 Anemia, unspecified (principal); R16.1 Splenomegaly, not elsewhere classified
CPT/HCPCS: 36415; 80053; 82607; 82728; 82746; 83615; 85025; 85045; 85652

== ENCOUNTER 2021-11-04 07:41 | Outpatient (REF) | payer OTHER, MEDICAID, SELFPAY ==
--- NOTE | ~2021-11-04 | US_ITS ---
EXAMINATION: US ABDOMEN COMPLETE CLINICAL INFORMATION: Cirrhosis of liver. COMPARISON: Previous CT urogram March 2021 TECHNIQUE: Real-time imaging of the abdominal viscera. FINDINGS: PANCREAS: Not well visualized due to bowel gas ABDOMINAL AORTA: The proximal, mid, and distal segments are normal in caliber. INFERIOR VENA CAVA: Visualized portions are normal. LIVER: Liver echotexture is slightly heterogeneous. Liver contour is slightly lobular suggestive of mild cirrhosis. No focal liver lesion. No biliary duct dilatation. GALLBLADDER: Normal. The gallbladder is physiologically distended without evidence of stones, sludge, polyps, wall thickening or pericholecystic fluid. COMMON BILE DUCT: Not well visualized. RIGHT KIDNEY: There is mild right hydronephrosis. The visualized right ureter is dilated. No stone or mass. The kidney measures 7.9 cm in maximum dimension and is smaller than the left. LEFT KIDNEY: Normal. No hydronephrosis. No renal calculi or focal parenchymal lesions. The kidney measures 11.6 cm in maximum dimension. SPLEEN: Normal. The spleen measures 10.3 cm in maximum dimension. FREE FLUID: None. US/US abdomen complete IMPRESSION: Mild cirrhotic changes of the liver. Small right kidney. Mild hydronephrosis. Limited visualization of the pancreas and common bile duct.
== END 2021-11-04 07:42 | disposition home or self-care (01) ==
LOC: HO.US 07:41
PROVIDERS: Visit Provider Internal Medicine
DX: K74.69 Other cirrhosis of liver (principal)
CPT/HCPCS: 76700

== ENCOUNTER 2021-11-26 14:05 | Outpatient (REF) | payer OTHER, MEDICAID, SELFPAY ==
--- NOTE | ~2021-11-26 | CT_ITS ---
EXAMINATION: CT ABDOMEN AND PELVIS WITHOUT AND WITH CONTRAST CLINICAL INFORMATION: Bladder cancer. COMPARISON: Previous exam most recent March 2021. TECHNIQUE: Noncontrast CT of the abdomen and pelvis is performed followed by split bolus contrast-enhanced images using 85 mL Omnipaque 350 contrast.?The IV infiltrated. Repeat contrast injection was not performed. Sagittal and coronal reformatted images were obtained on the technologist's workstation for both the precontrast and postcontrast phases. This CT examination was performed using dose optimization techniques as appropriate, variously including the following: *Automated exposure control. *Adjustment of mA and/or kV according to patient size (this includes techniques or standardized protocols for targeted exams where dose is matched to indication/reason for exam; i.e. extremities or head). *Use of iterative reconstruction technique. DLP: 572 mGy-cm FINDINGS: LUNG BASES: There is atelectasis or scarring at the left lung base and focal bronchiectasis. LIVER, GALLBLADDER, AND BILIARY TREE: The liver appears cirrhotic. The gallbladder is normal. There is no biliary duct dilatation. PANCREAS: Unremarkable. SPLEEN: Unremarkable. ADRENAL GLANDS: Unremarkable. KIDNEYS AND URETERS: The right kidney is smaller than the left. There is mild right hydronephrosis and ureteral dilatation. This is similar-appearing to March 2021 exam. No renal stone or mass is seen. The urogram portion of the exam is nondiagnostic with no excreted contrast seen in the collecting systems, ureters or bladder. BLADDER: Post radical cystectomy. Right lower quadrant urostomy. GASTROINTESTINAL TRACT: Post right lower quadrant urostomy. The small and large bowel are otherwise unremarkable. ABDOMINAL WALL: No significant hernia is appreciated. LYMPH NODES: There are surgical clips in the retroperitoneum of the pelvis probably related to previous lymph node dissection. No enlarged lymph nodes are seen. No ascites. VASCULAR: Unremarkable. PELVIC VISCERA: Prostate gland has been removed. OSSEUS STRUCTURES: There are degenerative changes of the spine. Is a small sclerotic lesion in the left femoral head that is stable and probably represents a bone island. No suspicious bone lesion. CT/CT urogram IMPRESSION: Stable postsurgical changes following radical cystectomy. Small right kidney. Mild right hydronephrosis and ureteral dilatation similar to previous exam. The patient's IV infiltrated and CT urogram portion of the exam is nondiagnostic with no excreted contrast. Cirrhotic-appearing liver.
[2021-11-26] MEDS: iohexoL 350 MG/ML 100 ML INFUS..BTL IV (15:40)
== END 2021-11-26 14:06 | disposition home or self-care (01) ==
LOC: HO.CT 14:05
PROVIDERS: PCP Internal Medicine; Visit Provider Urology
DX: C67.9 Malignant neoplasm of bladder, unspecified (principal)
CPT/HCPCS: 74178; Q9967

== ENCOUNTER → 2021-12-10 15:07 | Outpatient (BNVA) | payer OTHER, MEDICAID, SELFPAY | PROVIDERS: PCP Internal Medicine; Visit Provider Urology | DX: C67.9 Malignant neoplasm of bladder, unspecified (principal); Z92.21 Personal history of antineoplastic chemotherapy | CPT/HCPCS: Q3014 ==

== ENCOUNTER 2022-01-11 10:45 | Outpatient (REF) | payer OTHER, MEDICAID, SELFPAY ==
[2022-01-11 11:24] LABS: Estimated Average Glucose 140 mg/dL; Hemoglobin A1c % 6.5 %
[2022-01-11 11:29] LABS: Alanine Aminotransferase 35 U/L (0-40); Albumin Level 4.1 g/dL (3.5-5.0); Alkaline Phosphatase 182 U/L (39-117); Anion Gap 13 (12-20); Aspartate Amino Transferase 31 U/L (5-37); Bilirubin Total 0.3 mg/dL (0.0-1.0); Blood Urea Nitrogen 23 mg/dL (9-16); Calcium 9.1 mg/dL (8.4-10.2); Carbon Dioxide 18 mmol/L (22-29); Chloride 109 mmol/L (96-108); Estimated Glomerular Filt Rate 44; Glucose Random 138 mg/dL (60-115); Potassium 4.6 mmol/L (3.3-5.1); Sodium 135 mmol/L (135-145); Total Protein 7.4 g/dL (6.5-8.0)
== END 2022-01-11 10:46 | disposition home or self-care (01) ==
LOC: HO.LAB 10:45
PROVIDERS: PCP Internal Medicine; Visit Provider Internal Medicine
DX: D64.9 Anemia, unspecified (principal); I10 Essential (primary) hypertension; K74.69 Other cirrhosis of liver; Z93.6 Other artificial openings of urinary tract status
CPT/HCPCS: 36415; 80053; 83036

== ENCOUNTER 2022-02-08 00:49 | Emergency (ER) | payer OTHER, MEDICAID, SELFPAY ==
--- NOTE | ~2022-02-08 | XR_ITS ---
EXAMINATION: XR CHEST CLINICAL INFORMATION: Fever COMPARISON: 03/12/2021 TECHNIQUE: Frontal view of the chest was obtained. FINDINGS: The lungs are well expanded. There is no focal consolidation, edema, or effusion. No pneumothorax. The cardiomediastinal silhouette is within normal limits. No acute osseous abnormality. XR/XR chest 1V IMPRESSION: No acute pulmonary finding.
[2022-02-08 00:51] VITALS: BP 171/70; PULSE 96; RESP 20; TEMP 38.1; O2SAT 99; BMI 24.7
[2022-02-08 01:11] LABS: Basophils Percent Auto 0.4 % (0-2); Eosinophils Absolute Auto 0.1 X10*3/uL (0.0-0.4); Hematocrit 35.1 % (42.0-52.0); Hemoglobin 11.7 g/dl (14.0-18.0); Imm Gran Abs Auto 0.03 X10*3/uL (0.00-0.03); Imm Gran Pct Auto 0.3 % (0.0-0.4); Lymphocytes Absolute Auto 1.6 X10*3/uL (1.2-4.9); Lymphocytes Percent Auto 15.9 % (20-40); MANUAL DIFF FLAG NO; Mean Corpuscular HGB Conc 33.3 g/dl (31.0-36.0); Mean Corpuscular Hemoglobin 30.9 pg (27.0-33.0); Mean Corpuscular Volume 92.6 fL (80.0-98.0); Mean Platelet Volume 10.2 fL (9.4-12.4); Monocytes Absolute Auto 0.5 X10*3/uL (0.1-1.2); Monocytes Percent Auto 4.7 % (2-11); Neutrophils Absolute Auto 7.6 x10*3/uL (2.0-8.3); Neutrophils Percent Auto 77.7 % (45-73); Platelet Count 145 X10*3/uL (160-400); Red Blood Count 3.79 X10*6/uL (4.60-5.80); Red Cell Distribution Width 13.3 % (11.0-16.0); White Blood Count 9.8 X10*3/uL (4.8-10.8)
[2022-02-08 01:12] LABS: Appearance Urine HAZY; Color Urine YELLOW; Glucose Urine UA NEG (NEG); Leukocyte Esterase Urine 3+ (NEG); Nitrite Urine NEG (NEG); UACC Culture Trigger YES; Urine Blood 2+ (NEG); Urine Ketones NEG (NEG); Urine Protein TRACE MG/DL (NEG-TRACE)
--- NOTE | 2022-02-08 01:17 | ED_ITS ---
HPI - Fever General Chief Complaint: Fever Stated Complaint: fever, chills, vomiting - bladder cancer Time Seen by Provider: 02/08/22 01:10 Source: patient and old records reviewed Mode of arrival: ambulatory Limitations: no limitations History of Present Illness MD elicited complaint: fever Pertinent past history: other (UTI in past) Onset (ago): day(s) (1) Context: other (prior UTI takes bactrim daily) Exacerbating factors: nothing Relieving factors: nothing Associated symptoms: denies other symptoms Treatments prior to arrival fever: antibiotics Related Data Home Medications Medication Instructions Recorded Confirmed albuterol sulfate 90 mcg/actuation 0 mcg inhalation 04/18/21 aerosol inhaler amlodipine 5 mg tablet 5 mg PO DAILY 04/18/21 atorvastatin 10 mg tablet 10 mg PO DAILY 04/18/21 blood sugar diagnostic (FreeStyle #10 ea 04/18/21 Lite Strips) fluticasone 113 mcg-salmeterol 14 1 inh inhalation BID 04/18/21 mcg/actuation breath activated powdr metformin 500 mg tablet 500 mg PO DAILY 04/18/21 montelukast 10 mg tablet 10 mg PO DAILY 04/18/21 tiotropium bromide 1.25 2 puff inhalation DAILY 04/18/21 mcg/actuation mist for inhalation (Spiriva Respimat) lancets 28 gauge (FreeStyle #100 ea 06/24/21 Lancets) folic acid 1 mg tablet 1 mg PO DAILY 12/10/21 Previous Rx's Medication Instructions Recorded levofloxacin 750 mg tablet 750 mg PO DAILY #7 tabs 03/12/21 sulfamethoxazole 800 1 tab PO BID UTI 7 days #14 tabs 06/27/21 mg-trimethoprim 160 mg tablet (Bactrim DS) sulfamethoxazole 400 1 tab PO DAILY 90 days #90 tabs 01/14/22 mg-trimethoprim 80 mg tablet (Bactrim) cefuroxime axetil 250 mg tablet 250 mg PO BID 10 days #20 tabs 02/08/22 Allergies Allergy/AdvReac Type Severity Reaction Status Date / Time aspirin Allergy Unknown Verified 02/08/22 01:02 ibuprofen AdvReac Unknown Verified 02/08/22 01:02 Review of Systems Review of Systems: Constitutional : No Weight loss, pos Fever, No Chills, No Fatigue, No Malaise ENT/Mouth : No sore throat, No Rhinorrhea Eyes: No Eye Pain, No Swelling, No Redness Cardiovascular : No Chest Pain, No SOB, No Dyspnea on Exertion, No Orthopnea, No Edema, No Palpitations Respiratory : No Cough, No Sputum, No Wheezing Gastrointestinal : No Nausea, No Vomiting, No Diarrhea, No Constipation, No abdominal Pain, No Hematochezia, No Melena Genitourinary : No Dysuria, No Urinary Frequency, No Hematuria, Musculoskeletal : No joint pain, No Myalgias, No Joint Swelling Skin : No Skin Lesions, No rash Neuro : No Weakness, No Numbness, No Dizziness, No Headache Psych : No Anxiety/Panic, No Depression Heme/Lymph: No Bruising, No Bleeding,No Lymphadenopathy Endocrine : No Polyuria, No Polydipsia All other systems reviewed and are negative [facility] Past Medical History Attestation statement: The following information was validated with the patient. Medical History Asthma Bladder cancer Bladder cancer Complicated urinary tract infection Diabetes Hydronephrosis Incomplete emptying of bladder due to benign prostatic hyperplasia Social History Social History (Updated 02/08/22 @ 01:29 by Cookie Tierney DO) Patient Tobacco Use Status: Tobacco use Unknown Advance Directives: No Advance Directives Information Provided: Yes Physical Exam Vital Signs: Vital Signs: Last Vital Signs Temp 98.5 F 02/08/22 02:26 Pulse 85 02/08/22 02:26 Resp 16 02/08/22 02:26 BP 135/52 L 02/08/22 02:26 Pulse Ox 98 02/08/22 02:26 O2 Del Method 02/08/22 02:26 BMI result Body Mass Index 24.7 Appearance: Alert. Oriented X3. No acute distress. Eyes: Pupils equal, round and reactive to light. ENT: Pharynx normal. Neck: Normal inspection. Neck supple. CVS: Normal heart rate and rhythm. Pulses normal. Respiratory: No respiratory distress. Breath sounds normal. Abdomen: Soft and non-tender. Urostomy is patent yellow urine slightly cloudy no flank pain Skin: Skin warm and dry. Normal skin color. Normal skin turgor. Extremities: No lower extremity edema. No calf ttp Neuro: Oriented X 3. No motor deficit. No sensory deficit. Course Course Course Narrative: + UTI, will start on ceftin, patient feels better and wants to go home, Cr slightly bumped from baseline of 1.5 he is aware and will see his doctor on Thursday given precautions to return bicarb likely low due to worsening kidney function negative lactic acidosis, no gap, doubt DKA, lactic 1.5 baseline HCO3 around 18 MDM - Fever MDM Narrative Medical decision making narrative: 71 yo male with hx of asthma, HTN, HLD, bladder cancer s/p tx now with urostomy in place prior UTI S to ceftriaxone comes in with fever no other symptoms - at this time will obtain labs, CXR, UA, cultures, lactic acid - empiric ceftraixone. Dispo per results and findings. Slight bump in Cr - gentle fluids o rdered Lab Data Result diagrams: 02/08/22 01:07 02/08/22 01:07 Labs: Lab Results 02/08/22 02/08/22 02/08/22 Range/Units 01:04 01:04 01:07 WBC 9.8 (4.8-10.8) X10*3/uL RBC 3.79 L (4.60-5.80) X10*6/uL Hgb 11.7 L (14.0-18.0) g/dl Hct 35.1 L (42.0-52.0) % MCV 92.6 (80.0-98.0) fL MCH 30.9 (27.0-33.0) pg MCHC 33.3 (31.0-36.0) g/dl RDW 13.3 (11.0-16.0) % Plt Count 145 L (160-400) X10*3/uL MPV 10.2 (9.4-12.4) fL Immature Gran % (Auto) 0.3 (0.0-0.4) % Neut % (Auto) 77.7 H (45-73) % Lymph % (Auto) 15.9 L (20-40) % [place] % (Auto) 4.7 (2-11) % Eos % (Auto) 1.0 (0-4) % Baso % (Auto) 0.4 (0-2) % Lymph # (Auto) 1.6 (1.2-4.9) X10*3/uL [place] # (Auto) 0.5 (0.1-1.2) X10*3/uL Eos # (Auto) 0.1 (0.0-0.4) X10*3/uL Baso # (Auto) 0.0 (0.0-0.2) X10*3/uL Abs Immat Gran (auto) 0.03 (0.00-0.03) X10*3/uL Absolute Neuts (auto) 7.6 (2.0-8.3) x10*3/uL Absolute Nucleated RBC 0.000 (0.0-0.012) X10*3/uL Nucleated RBC % (auto) 0.0 (0.0-0.2) /100WBC Sodium (135-145) mmol/L Potassium (3.3-5.1) mmol/L Chloride (96-108) mmol/L Carbon Dioxide (22-29) mmol/L Anion Gap (12-20) BUN (9-16) mg/dL Creatinine (0.5-1.4) mg/dL Estim Creat Clear Calc Estimated GFR Random Glucose (60-115) mg/dL Lactic Acid (0.5-2.0) mmol/L Calcium (8.4-10.2) mg/dL Urine Color YELLOW Urine Appearance HAZY Urine pH 7.0 (5.0-8.0) Ur Specific [place] 1.010 (1.005-1.025) Urine Protein TRACE (NEG-TRACE) MG/DL Urine Glucose (UA) NEG (NEG) MG/DL Urine Ketones NEG (NEG) MG/DL Urine Blood 2+ H (NEG) Urine Nitrite NEG (NEG) Ur Leukocyte Esterase 3+ H (NEG) Urine RBC 5-9 H (0) /HPF Urine WBC 15-29 H (0-4) /HPF Ur Squamous Epith Cells NONE /LPF Amorphous Sediment TRACE /LPF Urine Bacteria 4+ /LPF Urine Mucus TRACE /LPF Influenza Type A (PCR) NEGATIVE (Negative) Influenza Type B (PCR) NEGATIVE (Negative) RSV RNA Qual (PCR) NEGATIVE (Negative) SARS-CoV-2 RNA (RT-PCR) NEGATIVE (Negative) 02/08/22 02/08/22 Range/Units 01:07 01:45 WBC (4.8-10.8) X10*3/uL RBC (4.60-5.80) X10*6/uL Hgb (14.0-18.0) g/dl Hct (42.0-52.0) % MCV (80.0-98.0) fL MCH (27.0-33.0) pg MCHC (31.0-36.0) g/dl RDW (11.0-16.0) % Plt Count (160-400) X10*3/uL MPV (9.4-12.4) fL Immature Gran % (Auto) (0.0-0.4) % Neut % (Auto) (45-73) % Lymph % (Auto) (20-40) % [place] % (Auto) (2-11) % Eos % (Auto) (0-4) % Baso % (Auto) (0-2) % Lymph # (Auto) (1.2-4.9) X10*3/uL [place] # (Auto) (0.1-1.2) X10*3/uL Eos # (Auto) (0.0-0.4) X10*3/uL Baso # (Auto) (0.0-0.2) X10*3/uL Abs Immat Gran (auto) (0.00-0.03) X10*3/uL Absolute Neuts (auto) (2.0-8.3) x10*3/uL Absolute Nucleated RBC (0.0-0.012) X10*3/uL Nucleated RBC % (auto) (0.0-0.2) /100WBC Sodium 131 L (135-145) mmol/L Potassium 4.5 (3.3-5.1) mmol/L Chloride 110 H (96-108) mmol/L Carbon Dioxide 13 L (22-29) mmol/L Anion Gap 13 (12-20) BUN 29 H (9-16) mg/dL Creatinine 1.70 H (0.5-1.4) mg/dL Estim Creat Clear Calc 29.8 Estimated GFR 40 Random Glucose 189 H D (60-115) mg/dL Lactic Acid 1.5 (0.5-2.0) mmol/L Calcium 8.4 D (8.4-10.2) mg/dL Urine Color Urine Appearance Urine pH (5.0-8.0) Ur Specific [place] (1.005-1.025) Urine Protein (NEG-TRACE) MG/DL Urine Glucose (UA) (NEG) MG/DL Urine Ketones (NEG) MG/DL Urine Blood (NEG) Urine Nitrite (NEG) Ur Leukocyte Esterase (NEG) Urine RBC (0) /HPF Urine WBC (0-4) /HPF Ur Squamous Epith Cells /LPF Amorphous Sediment /LPF Urine Bacteria /LPF Urine Mucus /LPF Influenza Type A (PCR) (Negative) Influenza Type B (PCR) (Negative) RSV RNA Qual (PCR) (Negative) SARS-CoV-2 RNA (RT-PCR) (Negative) Discharge Plan Discharge Clinical Impression: Acute UTI Fever Qualifiers: Fever type: unspecified Qualified Code(s): R50.9 - Fever, unspecified Patient Disposition: Home, Self-Care Instructions: Urinary Tract Infection in Men (ED), Chronic Kidney Disease (ED), Fever in Adults (ED) Additional Instructions: return to ED for any worsening symptoms or concerns please take tylenol only for fevers stop taking bactrim while on new antibiotic recheck kidney function Thursday with your doctor if you feel worse at any time or you are not getting better please come back to the emergency department Prescriptions: New cefuroxime axetil 250 mg tablet 250 mg PO BID 10 Days Qty: 20 0RF No Action sulfamethoxazole-trimethoprim [Bactrim DS] 800-160 mg tablet 1 tab PO BID 7 Days Qty: 14 0RF sulfamethoxazole-trimethoprim [Bactrim] 400-80 mg tablet 1 tab PO DAILY 90 Days Qty: 90 3RF levofloxacin 750 mg tablet 750 mg PO DAILY Qty: 7 0RF montelukast 10 mg tablet 10 mg PO DAILY atorvastatin 10 mg tablet 10 mg PO DAILY fluticasone propion-salmeterol 113-14 mcg/actuation aerosol powdr breath activated 1 inh inhalation BID albuterol sulfate 90 mcg/actuation HFA aerosol inhaler 0 mcg inhalation Spiriva Respimat 1.25 mcg/actuation mist 2 puff inhalation DAILY (DME) FreeStyle Lite Strips Strip See Rx Instructions Not Applicable DAILY Qty: 10 Rx Instructions: As directed amlodipine 5 mg tablet 5 mg PO DAILY metformin 500 mg tablet 500 mg PO DAILY (DME) lancets [FreeStyle Lancets] 28 gauge misc See Rx Instructions topical BID Qty: 100 Rx Instructions: As directed folic acid 1 mg tablet 1 mg PO DAILY Referrals: Hilary Jimenez MD [Primary Care Provider] - 03/11/22
[2022-02-08 01:30] LABS: Anion Gap 13 (12-20); Blood Urea Nitrogen 29 mg/dL (9-16); Calcium 8.4 mg/dL (8.4-10.2); Carbon Dioxide 13 mmol/L (22-29); Chloride 110 mmol/L (96-108); Creatinine Clr Calc Pharmacy 29.8; Estimated Glomerular Filt Rate 40; Glucose Random 189 mg/dL (60-115); Potassium 4.5 mmol/L (3.3-5.1); Sodium 131 mmol/L (135-145)
[2022-02-08 01:48] LABS: Influenza A PCR NEGATIVE (Negative); Influenza B PCR NEGATIVE (Negative); Resp Syncy Virus RNA Qual PCR NEGATIVE (Negative); SARS COV2 PCR INHOUSE NEGATIVE (Negative)
[2022-02-08] MEDS: Acetaminophen 325 MG TABLET 650 MG PO (02:00)
[2022-02-08] MEDS: 0.9 % Sodium Chloride 500 ML IV (02:00)
[2022-02-08] MEDS: cefTRIAXone sodium 1 GM in 0.9 % Sodium Chloride 50 ML IV (02:02)
[2022-02-08 02:13] LABS: Amorphous Sediment Urine TRACE /LPF; Bacteria Urine 4+ /LPF; Mucus Urine TRACE /LPF; UACC CULT YES
[2022-02-08 02:26] VITALS: BP 135/52; PULSE 85; RESP 16; TEMP 36.9; O2SAT 98
[2022-02-08 03:13] LABS: Lactic Acid 1.5 mmol/L (0.5-2.0)
== END 2022-02-08 03:47 | disposition home or self-care (01) ==
PROVIDERS: Emergency Provider Emergency Medicine; PCP Internal Medicine
DX: N39.0 Urinary tract infection, site not specified (principal); B96.20 Unspecified Escherichia coli [E. coli] as the cause of diseases classified elsewhere; Z20.822 Contact with and (suspected) exposure to COVID-19; R50.9 Fever, unspecified; D49.4 Neoplasm of unspecified behavior of bladder; Z87.440 Personal history of urinary (tract) infections
CPT/HCPCS: 0241U; 36415; 71045; 80048; 81001; 83605; 85025; 87040; 87077; 87086; 87186; 87205; 96361; 96365; 99283; 99284; J0696

== ENCOUNTER 2022-02-08 05:28 | Inpatient (IN) | payer OTHER, MEDICAID, SELFPAY ==
--- NOTE | ~2022-02-08 | CT_ITS ---
EXAMINATION: CT ABDOMEN AND PELVIS WITHOUT CONTRAST CLINICAL INFORMATION: Right flank pain COMPARISON: November 26, 2021 and April 08, 2021 TECHNIQUE: Multidetector volumetric imaging was performed from the superior aspect of the liver through the pubic symphysis. Sagittal and coronal reformatted images were obtained on the technologist's workstation. This CT examination was performed using dose optimization techniques as appropriate, variously including the following: *Automated exposure control *Adjustment of mA and/or kV according to patient size (this includes techniques or standardized protocols for targeted exams where dose is matched to indication/reason for exam; i.e. extremities or head) *Use of iterative reconstruction technique DLP: 575 mGy-cm FINDINGS: LUNG BASES: There is some bronchiectasis and scarring seen within the left lower lobe. No pericardial or pleural effusion. Coronary artery calcifications are present. LIVER, GALLBLADDER, AND BILIARY TREE: The liver is normal in size, shape, and attenuation. No focal hepatic lesion or biliary ductal dilatation is present. The gallbladder is unremarkable with no evidence of radiopaque gallstones, gallbladder wall thickening, or obvious pericholecystic inflammatory changes. PANCREAS: Unremarkable. SPLEEN: Unremarkable. ADRENAL GLANDS: Unremarkable. KIDNEYS AND URETERS: Right kidney: There is again noted to be stable moderate hydronephrosis and hydroureter within the proximal third of the right ureter. Urostomy is seen in place. No definite calcification is noted within the visualized portions of the right ureter. No suspicious mass identified. No right renal calculus. There is some perinephric stranding. The right kidney is smaller than the left with a thinner cortex. Left kidney: No calculi or hydronephrosis. Course of the ureter to the urostomy unremarkable. No suspicious mass identified. BLADDER: Post radical cystectomy with urostomy in place. No definite abnormality of the neobladder identified. Right lower quadrant urostomy. GASTROINTESTINAL TRACT: No dilated loops of large or small bowel. No free air or free fluid. Neobladder identified and appears unremarkable. No pericolonic inflammatory change. No bowel wall thickening appreciated. ABDOMINAL WALL: No significant hernia is appreciated. LYMPH NODES: Status post lymph node dissection bilaterally within the pelvis. No lymphadenopathy appreciated. VASCULAR: No significant calcified plaque identified. No abdominal aortic aneurysm. PELVIC VISCERA: Status post cystectomy and prostatectomy. Postsurgical change. OSSEOUS STRUCTURES: No suspicious destructive bony lesions identified. Stable left femoral head bone island. CT/CT abdomen pelvis wo con IMPRESSION: Postsurgical change following radical cystectomy and creation of neobladder. There is persistent moderate right hydronephrosis with proximal ureteral dilatation. Fleischner guidelines were followed.
--- NOTE | 2022-02-08 05:31 | ED_ITS ---
HPI - Fever General Chief Complaint: Fever Stated Complaint: chills, vomiting, back pain Time Seen by Provider: 02/08/22 05:31 Source: patient, family and old records reviewed Mode of arrival: ambulatory Limitations: no limitations History of Present Illness HPI Narrative: 71 yo male hx of asthma, HTN, bladder cancer s/p treatment with urostomy and increasing Cr on recent labs was seen just today for same complaint - given ceftriaxone for last urinary cultures told to come back if he felt worse. Patient discharged about 4 hours ago and came back with fevers, malaise, vomiting x 1, back pain on R side which is new - just had cultures today and received IV ceftriaxone at 130am today. Cultures and blood work done 02/08/22 MD elicited complaint: fever, malaise and weakness Pertinent past history: other (known UTI) Onset (ago): day(s) (1) Context: recent antibiotic use Exacerbating factors: nothing Relieving factors: acetaminophen Associated symptoms: chills, nausea, vomiting and back/flank pain (new from prior visit) Treatments prior to arrival fever: other (had labs, cultures, ceftriaxone) Related Data Home Medications Medication Instructions Recorded Confirmed albuterol sulfate 90 mcg/actuation 0 mcg inhalation 04/18/21 aerosol inhaler amlodipine 5 mg tablet 5 mg PO DAILY 04/18/21 atorvastatin 10 mg tablet 10 mg PO DAILY 04/18/21 blood sugar diagnostic ([place] #10 ea 04/18/21 Lite Strips) fluticasone 113 mcg-salmeterol 14 1 inh inhalation BID 04/18/21 mcg/actuation breath activated powdr metformin 500 mg tablet 500 mg PO DAILY 04/18/21 montelukast 10 mg tablet 10 mg PO DAILY 04/18/21 tiotropium bromide 1.25 2 puff inhalation DAILY 04/18/21 mcg/actuation mist for inhalation (Spiriva Respimat) lancets 28 gauge (FreeStyle #100 ea 06/24/21 Lancets) folic acid 1 mg tablet 1 mg PO DAILY 12/10/21 Previous Rx's Medication Instructions Recorded levofloxacin 750 mg tablet 750 mg PO DAILY #7 tabs 03/12/21 sulfamethoxazole 800 1 tab PO BID UTI 7 days #14 tabs 06/27/21 mg-trimethoprim 160 mg tablet (Bactrim DS) sulfamethoxazole 400 1 tab PO DAILY 90 days #90 tabs 01/14/22 mg-trimethoprim 80 mg tablet (Bactrim) cefuroxime axetil 250 mg tablet 250 mg PO BID 10 days #20 tabs 02/08/22 Allergies Allergy/AdvReac Type Severity Reaction Status Date / Time aspirin Allergy Unknown Verified 02/08/22 05:45 ibuprofen AdvReac Unknown Verified 02/08/22 05:45 Review of Systems Review of Systems: Constitutional : pos Fever, pos Chills ENT/Mouth : No Ear Pain, No Nasal Congestion, No sore throat Eyes: No Eye Pain, No Swelling, No Redness Cardiovascular : No Chest Pain, No SOB Respiratory : No Cough, No Sputum, No Dyspnea Gastrointestinal : pos Nausea, pos Vomiting, No Diarrhea, No Hematochezia, No Melena Genitourinary : No Dysuria, No Urinary Frequency, No Hematuria Musculoskeletal : No Myalgias, pos back pain Skin : No Skin Lesions, No rash Neuro : No Weakness, No Numbness, No Paresthesias, No Dizziness, No Headache Psych : positive Anxiety, positive Depression, positive SI/HI Heme/Lymph: No Lymphadenopathy Endocrine : No Polyuria, No Polydipsia All other systems reviewed and are negative [facility] Past Medical History Medical History Asthma Bladder cancer Bladder cancer Complicated urinary tract infection Diabetes Hydronephrosis Incomplete emptying of bladder due to benign prostatic hyperplasia Social History Social History Patient Tobacco Use Status: Tobacco use Unknown Advance Directives: No Advance Directives Information Provided: Yes Physical Exam Vital Signs: Vital Signs: Last Vital Signs Temp 99.4 F 02/08/22 05:47 Pulse 99 02/08/22 05:47 Resp 18 02/08/22 05:47 BP 165/64 H 02/08/22 05:47 Pulse Ox 97 02/08/22 05:47 O2 Del Method 02/08/22 05:47 BMI result Body Mass Index 24.7 Appearance: Alert. Oriented X3. No acute distress. Eyes: Pupils equal, round and reactive to light. ENT: Pharynx normal. Neck: Normal inspection. Neck supple. CVS: Normal heart rate and rhythm. Pulses normal. Respiratory: No respiratory distress. Breath sounds normal. Abdomen: Soft and nontender. Urostomy clear yellow urine Back: mild R CVA ttp Skin: Skin warm and dry. Normal skin color. Normal skin turgor. Extremities: No lower extremity edema. No calf ttp Neuro: Oriented X 3. No motor deficit. No sensory deficit. Course Course Course Narrative: 550am hospitalist notified of admission signed out to Dr. East pending CT scan MDM - Fever MDM Narrative Medical decision making narrative: 71 yo male hx of asthma, HTN, bladder cancer s/p treatment with urostomy and increasing Cr on recent labs was seen just today for same complaint - just had cultures and ceftriaxone at 1am today no need to repeat, he comes back for not feeling well and developed R flank pain which is new from his prior visit. At this time no need to repeat cultures, just had ceftriaxone. I will place IV, obtain CT scan and admit to hospital. Lab Data Result diagrams: 02/08/22 06:14 02/08/22 06:14 Labs: Lab Results 02/08/22 02/08/22 Range/Units 06:14 06:14 WBC 11.2 H (4.8-10.8) X10*3/uL RBC 3.52 L (4.60-5.80) X10*6/uL Hgb 10.9 L (14.0-18.0) g/dl Hct 32.2 L (42.0-52.0) % MCV 91.5 (80.0-98.0) fL MCH 31.0 (27.0-33.0) pg MCHC 33.9 (31.0-36.0) g/dl RDW 13.3 (11.0-16.0) % Plt Count 133 L (160-400) X10*3/uL MPV 10.2 (9.4-12.4) fL Immature Gran % (Auto) 0.5 H (0.0-0.4) % Neut % (Auto) 86.9 H (45-73) % Lymph % (Auto) 5.7 L (20-40) % [place] % (Auto) 6.3 (2-11) % Eos % (Auto) 0.3 (0-4) % Baso % (Auto) 0.3 (0-2) % Lymph # (Auto) 0.6 L (1.2-4.9) X10*3/uL [place] # (Auto) 0.7 (0.1-1.2) X10*3/uL Eos # (Auto) 0.0 (0.0-0.4) X10*3/uL Baso # (Auto) 0.0 (0.0-0.2) X10*3/uL Abs Immat Gran (auto) 0.06 H (0.00-0.03) X10*3/uL Absolute Neuts (auto) 9.7 H (2.0-8.3) x10*3/uL Absolute Nucleated RBC 0.000 (0.0-0.012) X10*3/uL Nucleated RBC % (auto) 0.0 (0.0-0.2) /100WBC Sodium 129 L (135-145) mmol/L Potassium 4.6 (3.3-5.1) mmol/L Chloride 107 (96-108) mmol/L Carbon Dioxide 13 L (22-29) mmol/L Anion Gap 14 (12-20) BUN 27 H (9-16) mg/dL Creatinine 1.68 H (0.5-1.4) mg/dL Estim Creat Clear Calc 30.2 Estimated GFR 40 Random Glucose 252 H (60-115) mg/dL Calcium 8.0 L (8.4-10.2) mg/dL Discharge Plan Discharge Clinical Impression: Acute UTI Fever Qualifiers: Fever type: unspecified Qualified Code(s): R50.9 - Fever, unspecified Vomiting Qualifiers: Vomiting type: unspecified Nausea presence: with nausea Qualified Code(s): R11.2 - Nausea with vomiting, unspecified Patient Disposition: Admitted As Inpatient
[2022-02-08 05:47] VITALS: BP 165/64; PULSE 99; RESP 18; TEMP 37.4; O2SAT 97; BMI 24.7
[2022-02-08 06:18] LABS: Basophils Percent Auto 0.3 % (0-2); Eosinophils Percent Auto 0.3 % (0-4); Hematocrit 32.2 % (42.0-52.0); Hemoglobin 10.9 g/dl (14.0-18.0); Imm Gran Abs Auto 0.06 X10*3/uL (0.00-0.03); Imm Gran Pct Auto 0.5 % (0.0-0.4); Lymphocytes Absolute Auto 0.6 X10*3/uL (1.2-4.9); Lymphocytes Percent Auto 5.7 % (20-40); MANUAL DIFF FLAG NO; Mean Corpuscular HGB Conc 33.9 g/dl (31.0-36.0); Mean Corpuscular Volume 91.5 fL (80.0-98.0); Mean Platelet Volume 10.2 fL (9.4-12.4); Monocytes Absolute Auto 0.7 X10*3/uL (0.1-1.2); Monocytes Percent Auto 6.3 % (2-11); Neutrophils Absolute Auto 9.7 x10*3/uL (2.0-8.3); Neutrophils Percent Auto 86.9 % (45-73); Platelet Count 133 X10*3/uL (160-400); Red Blood Count 3.52 X10*6/uL (4.60-5.80); Red Cell Distribution Width 13.3 % (11.0-16.0); White Blood Count 11.2 X10*3/uL (4.8-10.8)
[2022-02-08] MEDS: 0.9 % Sodium Chloride 500 ML IV (06:20)
[2022-02-08] MEDS: ondansetron HCL 4 MG/2 ML VIAL IVPUSH (06:23)
[2022-02-08 06:32] LABS: Anion Gap 14 (12-20); Blood Urea Nitrogen 27 mg/dL (9-16); Carbon Dioxide 13 mmol/L (22-29); Chloride 107 mmol/L (96-108); Creatinine Clr Calc Pharmacy 30.2; Estimated Glomerular Filt Rate 40; Glucose Random 252 mg/dL (60-115); Potassium 4.6 mmol/L (3.3-5.1); Sodium 129 mmol/L (135-145)
[2022-02-08 06:46] LABS: COVID-19 Test Negative (Negative)
[2022-02-08 07:30] VITALS: BP 126/48; PULSE 88; RESP 18; TEMP 37.1; O2SAT 99
--- NOTE | 2022-02-08 07:30 | PC.NURSE ---
Pt alert and oriented. Denies any pain. Skin warm, normal to ethnicity. Urostomy to right lower abd, draining clear yellow urine. VSS
[2022-02-08 11:25] VITALS: BP 173/72; PULSE 94; RESP 16; TEMP 37.7; O2SAT 99
--- NOTE | 2022-02-08 11:52 | PHA.MEDREC ---
Pharmacy Consult ? Medication Reconciliation Pharmacy has completed the medication reconciliation.
--- NOTE | 2022-02-08 12:48 | PC.NURSE ---
patient a&ox3, family at bedside, awaiting inpt orders, vss, urostomy patient/draining, vss, call parra within reach, will continue to monitor
[2022-02-08 13:24] VITALS: BP 144/69; PULSE 87; RESP 16; TEMP 37.6; O2SAT 99
--- NOTE | 2022-02-08 14:40 | PC.NURSE ---
pt lunch tray was here and needed assistance eating, upon giving patient assistance she was unable to drink water without coughing, pt had previously taken bites of mashed potatoes without issue, turkey was cut to very small pieces and patient was able to eat. thick it was put into the water and patient was able to take po without further issue, will notify ed provider to change diet to ground with nectar thick liquids.
--- NOTE | 2022-02-08 15:41 | P.HPHOSP_ITS ---
History of Present Illness Date of Service: 02/08/22 Chief Complaint: Fever, weakness a 71 years old male with PMH of asthma, HTN, bladder cancer post resection and urostomy who presents to the hospital feeling weakness, chills and fever. The patient reports that he has recurrent infections that he has been following up with Dr. Sameer coyne. He presented to the hospital with complains of malaise, fever and vomiting with back pain on the right side. Denies any chest pain, shortness of breath, palpitation, change in bowel habit. He did not notice any change in the urine output from the urostomy. Blood work in the emergency was consistent with hyponatremia. In the emergency he was started on IV antibiotics. Will be admitted for treatment of UTI. Review of Systems Review of Systems: Reported fever, chills and malaise No chest pain, palpitation No shortness of breath or coughing No abdominal pain, nausea or vomiting No urinary symptoms No any rash or wounds PMFSH Medical History Asthma Bladder cancer Bladder cancer Complicated urinary tract infection Diabetes Hydronephrosis Incomplete emptying of bladder due to benign prostatic hyperplasia Social History Alcohol intake: never Patient Tobacco Use Status: Never used Tobacco Use of substances other than those prescribed or required for medical reasons: No Advance Directives: No Advance Directives Information Provided: Yes Meds Allergies Allergy/AdvReac Type Severity Reaction Status Date / Time aspirin Allergy Unknown Verified 02/08/22 05:45 ibuprofen AdvReac Unknown Verified 02/08/22 05:45 Active Medications: Current Medications Acetaminophen (Acetaminophen 325 Mg Tablet) 650 mg PO Q6H PRN PRN Reason: Pain, Mild (Pain Scale 1-3) Amlodipine Besylate (Amlodipine Besylate 5 Mg Tablet) 5 mg PO DAILY [facility]; Protocol Atorvastatin Calcium (Atorvastatin Calcium 10 Mg Tablet) 10 mg PO DAILY [facility] Bisacodyl (Bisacodyl 5 Mg Tablet.Dr) 10 mg PO BEDTIME [facility] Enoxaparin Sodium (Enoxaparin Sodium 40 Mg/0.4 Ml Syringe) 40 mg SUBCUT Q24H [facility] Folic Acid (Folic Acid 1 Mg Tablet) 1 mg PO DAILY [facility] Ceftriaxone Sodium 1 gm/ (Sodium Chloride) 50 mls @ 100 mls/hr IV Q24H [facility] Insulin Human Lispro (Insulin Lispro 100 Unit/Ml 3 Ml Vial) 0 unit SUBCUT QIDACHS [facility]; Protocol Montelukast Sodium (Montelukast Sodium 10 Mg Tablet) 10 mg PO DAILY [facility] Ondansetron HCl (Ondansetron Hcl 4 Mg/2 Ml Vial) 4 mg IVPUSH Q8H PRN PRN Reason: Nausea and Vomiting Pharmacy Consult (Consult Rx Perform Med Rec) 1 each MISCELLANE ONCE PRN PRN Reason: Consult order Sodium Chloride (0.9 % Sodium Chloride Flush 3 Ml Syringe) 3 ml IVFLUSH QSHIFT [facility] Home Medications Medication Instructions Recorded Confirmed Last Taken Type amlodipine 5 mg tablet 5 mg PO DAILY 04/18/21 02/08/22 02/07/22 History atorvastatin 10 mg tablet 10 mg PO DAILY 04/18/21 02/08/22 02/07/22 History blood sugar diagnostic (Markelyle #10 ea 04/18/21 Unknown History Lite Strips) fluticasone 113 mcg-salmeterol 14 1 inh inhalation BID 04/18/21 02/08/22 02/07/22 History mcg/actuation breath activated powdr metformin 500 mg tablet 500 mg PO BID 04/18/21 02/08/22 02/07/22 History montelukast 10 mg tablet 10 mg PO DAILY 04/18/21 02/08/22 02/07/22 History tiotropium bromide 1.25 2 puff inhalation DAILY 04/18/21 02/08/22 Unknown History mcg/actuation mist for inhalation (Spiriva Respimat) lancets 28 gauge (FreeStyle #100 ea 06/24/21 Unknown History Lancets) folic acid 1 mg tablet 1 mg PO DAILY 12/10/21 02/08/22 02/07/22 History albuterol sulfate 90 mcg/actuation 2 puff PO QID PRN Shortness Of 02/08/22 02/08/22 Unknown History aerosol inhaler Breath bisacodyl 5 mg tablet,delayed 10 mg PO BEDTIME 02/08/22 02/08/22 02/07/22 History release Physical Exam Vital Signs and Narrative: Vital Signs: Last Vital Signs Temp 99.7 F 02/08/22 13:24 Pulse 87 07/02/22 13:24 Resp 16 02/08/22 13:24 BP 144/69 H 02/08/22 13:24 Pulse Ox 99 02/08/22 13:24 O2 Del Method 02/08/22 13:24 BMI result Body Mass Index 24.7 Const: Other: Constitutional : Alert, oriented, not in distress Neck : Normal inspection, Supple Cardiovascular : RRR, no JVP, no lower extremity edema Respiratory : fair bilateral air entry, no crackles, wheezes or rhonchi Gastrointestinal: soft, lax, Normal bowel sounds, Non tender Skin : Warm, Dry Urology: urostomy bag with leakage surrounding it, urine yellow and clear, no CVA tenderness Neurological : Alert & oriented x3, No focal deficit , CN 2-12 within normal Results Labs CBC and Chem 7: 02/08/22 06:14 02/08/22 06:14 Labs: Laboratory Results - last 24 hr 02/08/22 02/08/22 02/08/22 06:14 06:14 06:14 MCV 91.5 MCH 31.0 MCHC 33.9 RDW 13.3 Plt Count 133 L MPV 10.2 Immature Gran % (Auto) 0.5 H Neut % (Auto) 86.9 H Lymph % (Auto) 5.7 L [place] % (Auto) 6.3 Eos % (Auto) 0.3 Baso % (Auto) 0.3 Lymph # (Auto) 0.6 L [place] # (Auto) 0.7 Eos # (Auto) 0.0 Baso # (Auto) 0.0 Abs Immat Gran (auto) 0.06 H Absolute Neuts (auto) 9.7 H Absolute Nucleated RBC 0.000 Nucleated RBC % (auto) 0.0 Anion Gap 14 Estim Creat Clear Calc 30.2 Estimated GFR 40 Random Glucose 252 H Calcium 8.0 L COVID-19 ([facility]IS[facility]) Negative COVID-19 Clin Com See Note Imaging Radiologist's Impressions: Impressions Abdomen/Pelvis CT 02/08/22 06:52 IMPRESSION: Postsurgical change following radical cystectomy and creation of neobladder. There is persistent moderate right hydronephrosis with proximal ureteral dilatation. Fleischner guidelines were followed. Assessment and Plan (1) Fever: Qualifiers: Fever type: unspecified Qualified Code(s): R50.9 - Fever, unspecified Status: Acute (2) Acute UTI: Status: Acute (3) Vomiting: Qualifiers: Nausea presence: with nausea Vomiting type: unspecified Qualified Code(s): R11.2 - Nausea with vomiting, unspecified Status: Acute Plan a 71 years old male with PMH of asthma, HTN, bladder cancer post resection and urostomy who presents to the hospital feeling weakness, chills and fever. complicated UTI post radical cystectomy and creation of neobladder Pending urine and blood cultures Not septic CT scan showing persistent moderate right-sided hydronephrosis with proximal ureteral dilatation Start ceftriaxone Vomiting Secondary to infection Use Zofran as needed Type 2 diabetes continue SSI diabetic diet Asthma Not in exacerbation You Spiriva daily DVT PPX Lovenox The patient will need to overnight hospital stay for treatment of urinary tract infection to prevent possible worsening into sepsis Quality Stroke Does the patient have a stroke diagnosis?: No VTE Prior VTE?: No VTE Risk Level:: Medical - moderate - high VTE Device Contraindication: Treatment Not Indicated VTE Drug Contraindication: N/A - Med Ordered
[2022-02-08 15:45] LABS: Osmolality, Serum 294 mosm/kg (281-305)
[2022-02-08 17:08] LABS: Appearance Urine CLEAR; Color Urine STRAW; Glucose Urine UA NEG (NEG); Leukocyte Esterase Urine 1+ (NEG); Nitrite Urine NEG (NEG); UACC Culture Trigger YES; Urine Blood 1+ (NEG); Urine Ketones NEG (NEG); Urine Protein TRACE MG/DL (NEG-TRACE)
[2022-02-08 17:23] LABS: RBC Urine 0-2 /HPF (0)
[2022-02-08 17:24] LABS: Bacteria Urine TRACE /LPF; Mucus Urine TRACE /LPF
[2022-02-08] MEDS: cefTRIAXone sodium 1 GM in 0.9 % Sodium Chloride 50 ML IV (17:55)
--- NOTE | 2022-02-08 17:56 | PC.NURSE ---
medicated per provider order.
[2022-02-08 18:20] VITALS: BP 145/66; PULSE 96; RESP 16; TEMP 39.3; O2SAT 98
[2022-02-08 18:27] LABS: Glucose, Whole Blood 140 mg/dL (60-115)
--- NOTE | 2022-02-08 18:40 | PC.NURSE ---
POC 140, no insulin coverage needed. pt has a 102.8 fever, medicated w tylenol, provider notified.
[2022-02-08] MEDS: Enoxaparin Sodium 40 MG/0.4 ML SYRINGE SUBCUT (18:47)
[2022-02-08] MEDS: Acetaminophen 325 MG TABLET 650 MG PO (18:47)
[2022-02-08 20:41] VITALS: BP 102/49; PULSE 74; RESP 15; TEMP 37.2; O2SAT 99
[2022-02-08 21:09] LABS: Glucose, Whole Blood 213 mg/dL (60-115)
[2022-02-08] MEDS: Insulin Lispro 100 UNIT/ML 3 ML VIAL SUBCUT (21:55)
[2022-02-08] MEDS: bisacodyL 5 MG TABLET.DR 10 MG PO (21:56)
[2022-02-09] VITALS: BP 125/51; PULSE 82; RESP 16; TEMP 36.6; O2SAT 98
[2022-02-09] MEDS: 0.9 % Sodium Chloride Flush 3 ML SYRINGE IVFLUSH ×3 (00:21→14:43)
[2022-02-09 04:55] VITALS: BP 128/54; PULSE 82; RESP 16; TEMP 38.6; O2SAT 98
[2022-02-09] MEDS: Acetaminophen 325 MG TABLET 650 MG PO (04:59)
[2022-02-09 07:11] LABS: Hemoglobin 11.2 g/dl (14.0-18.0); Mean Corpuscular Hemoglobin 30.9 pg (27.0-33.0); Mean Corpuscular Volume 93.4 fL (80.0-98.0); PLT CLUMP 1
[2022-02-09 07:13] LABS: Hematocrit 33.8 % (42.0-52.0); Mean Corpuscular HGB Conc 33.1 g/dl (31.0-36.0); Red Blood Count 3.62 X10*6/uL (4.60-5.80); Red Cell Distribution Width 13.2 % (11.0-16.0)
[2022-02-09 07:34] LABS: Platelet Count 101 X10*3/uL (160-400); White Blood Count 8.9 X10*3/uL (4.8-10.8)
[2022-02-09 07:38] LABS: Anion Gap 15 (12-20); Blood Urea Nitrogen 27 mg/dL (9-16); Calcium 7.4 mg/dL (8.4-10.2); Carbon Dioxide 11 mmol/L (22-29); Chloride 106 mmol/L (96-108); Creatinine Clr Calc Pharmacy 30.9; Estimated Glomerular Filt Rate 41; Glucose Random 125 mg/dL (60-115); Sodium 128 mmol/L (135-145)
[2022-02-09 07:38] LABS: Glucose, Whole Blood 122 mg/dL (60-115)
[2022-02-09 08:18] LABS: Alanine Aminotransferase 28 U/L (0-40); Albumin Level 3.5 g/dL (3.5-5.0); Alkaline Phosphatase 154 U/L (39-117); Aspartate Amino Transferase 26 U/L (5-37); Bilirubin Direct 0.3 mg/dL (0.0-0.5); Bilirubin Total 0.8 mg/dL (0.0-1.0); Total Protein 6.4 g/dL (6.5-8.0)
[2022-02-09] MEDS: Montelukast Sodium 10 MG TABLET PO (09:37)
[2022-02-09] MEDS: Atorvastatin Calcium 10 MG TABLET PO (09:37)
[2022-02-09] MEDS: amLODIPine Besylate 5 MG TABLET PO (09:37)
[2022-02-09] MEDS: Folic Acid 1 MG TABLET PO (09:37)
--- NOTE | 2022-02-09 12:40 | P.PNIM_ITS ---
Subjective Subjective Date of Service: 02/09/22 Interval History: seen and evaluated this morning Had fever overnight Reports overall feeling better Blood culture growing GNR No other overnight events Review of Systems Reported fever, chills and malaise No chest pain, palpitation No shortness of breath or coughing No abdominal pain, nausea or vomiting No urinary symptoms No any rash or wounds Physical Exam Vital Signs: Vital Signs: Last Vital Signs Temp 101.4 F H 02/09/22 04:55 Pulse 82 02/09/22 04:55 Resp 16 02/09/22 04:55 BP 128/54 L 02/09/22 04:55 Pulse Ox 98 02/09/22 04:55 O2 Del Method 02/09/22 04:55 BMI result Body Mass Index 24.7 Const: Other: Constitutional : Alert, oriented, not in distress Neck : Normal inspection, Supple Cardiovascular : RRR, no JVP, no lower extremity edema Respiratory : fair bilateral air entry, no crackles, wheezes or rhonchi Gastrointestinal: soft, lax, Normal bowel sounds, Non tender Skin : Warm, Dry Urology: urostomy bag with leakage surrounding it, urine yellow and clear, no CVA tenderness Neurological : Alert & oriented x3, No focal deficit , CN 2-12 within normal Objective Data Active Medications Acetaminophen (Acetaminophen 325 Mg Tablet) 650 mg PO Q6H PRN PRN Reason: Pain, Mild (Pain Scale 1-3) Last Admin: 02/09/22 04:59 Dose: 650 mg Documented By: JAYLEEN Amlodipine Besylate (Amlodipine Besylate 5 Mg Tablet) 5 mg PO DAILY [facility]; Protocol Last Admin: 02/09/22 09:37 Dose: 5 mg Documented By: SIMBA Atorvastatin Calcium (Atorvastatin Calcium 10 Mg Tablet) 10 mg PO DAILY [facility] Last Admin: 02/09/22 09:37 Dose: 10 mg Documented By: SIMBA Bisacodyl (Bisacodyl 5 Mg Tablet.) 10 mg PO BEDTIME [facility] Last Admin: 02/08/22 21:56 Dose: 10 mg Documented By: DANISHA Enoxaparin Sodium (Enoxaparin Sodium 40 Mg/0.4 Ml Syringe) 40 mg SUBCUT Q24H [facility] Last Admin: 02/08/22 18:47 Dose: 40 mg Documented By: HO.MADDENL Folic Acid (Folic Acid 1 Mg Tablet) 1 mg PO DAILY [facility] Last Admin: 02/09/22 09:37 Dose: 1 mg Documented By: SIMBA Ceftriaxone Sodium 1 gm/ (Sodium Chloride) 50 mls @ 100 mls/hr IV Q24H [facility] Insulin Human Lispro (Insulin Lispro 100 Unit/Ml 3 Ml Vial) 0 unit SUBCUT QIDACHS [facility]; Protocol Last Admin: 02/09/22 09:17 Dose: Not Given Documented By: SIMBA Non-Admin Reason: blood sugar did not meet parameters Montelukast Sodium (Montelukast Sodium 10 Mg Tablet) 10 mg PO DAILY [facility] Last Admin: 02/09/22 09:37 Dose: 10 mg Documented By: SIMBA Ondansetron HCl (Ondansetron Hcl 4 Mg/2 Ml Vial) 4 mg IVPUSH Q8H PRN PRN Reason: Nausea and Vomiting Pharmacy Consult (Consult Rx Perform Med Rec) 1 each MISCELLANE ONCE PRN PRN Reason: Consult order Sodium Chloride (0.9 % Sodium Chloride Flush 3 Ml Syringe) 3 ml IVFLUSH QSHIFT [facility] Last Admin: 02/09/22 09:36 Dose: 3 ml Documented By: SIMBA Tiotropium [place] (Tiotropium [place] 18 Mcg Cap.W.Dev) 1 puff INHALE RDAILY [facility] Last Admin: 02/09/22 09:56 Dose: Not Given Documented By: ELOY Non-Admin Reason: Med Not Available Labs CBC & Chem 7: 02/09/22 06:54 02/09/22 06:54 Labs: Laboratory Results - last 24 hr 02/08/22 02/08/22 02/08/22 06:14 17:00 18:17 MCV MCH MCHC RDW Plt Count MPV Absolute Nucleated RBC Nucleated RBC % (auto) Anion Gap Estim Creat Clear Calc Estimated GFR POC Glucose 140 H Random Glucose Osmolality 294 Calcium Total Bilirubin Direct Bilirubin AST ALT Alkaline Phosphatase Total Protein Albumin Urine Color STRAW Urine Appearance CLEAR Urine pH 7.0 Ur Specific [place] 1.010 Urine Protein TRACE Urine Glucose (UA) NEG Urine Ketones NEG Urine Blood 1+ H Urine Nitrite NEG Ur Leukocyte Esterase 1+ H Urine RBC 0-2 Urine WBC 1-4 Ur Squamous Epith Cells NONE Urine Bacteria TRACE Urine Mucus TRACE 02/08/22 02/09/22 02/09/22 20:47 06:54 06:54 MCV 93.4 MCH 30.9 MCHC 33.1 RDW 13.2 Plt Count 101 L MPV 11.0 Absolute Nucleated RBC 0.000 Nucleated RBC % (auto) 0.0 Anion Gap 15 Estim Creat Clear Calc 30.9 Estimated GFR 41 POC Glucose 213 H Random Glucose 125 H D Osmolality Calcium 7.4 L D Total Bilirubin 0.8 Direct Bilirubin 0.3 AST 26 ALT 28 Alkaline Phosphatase 154 H Total Protein 6.4 L Albumin 3.5 Urine Color Urine Appearance Urine pH Ur Specific [place] Urine Protein Urine Glucose (UA) Urine Ketones Urine Blood Urine Nitrite Ur Leukocyte Esterase Urine RBC Urine WBC Ur Squamous Epith Cells Urine Bacteria Urine Mucus 02/09/22 07:31 MCV MCH MCHC RDW Plt Count MPV Absolute Nucleated RBC Nucleated RBC % (auto) Anion Gap Estim Creat Clear Calc Estimated GFR POC Glucose 122 H Random Glucose Osmolality Calcium Total Bilirubin Direct Bilirubin AST ALT Alkaline Phosphatase Total Protein Albumin Urine Color Urine Appearance Urine pH Ur Specific [place] Urine Protein Urine Glucose (UA) Urine Ketones Urine Blood Urine Nitrite Ur Leukocyte Esterase Urine RBC Urine WBC Ur Squamous Epith Cells Urine Bacteria Urine Mucus Assessment and Plan (1) Gram-negative bacteremia: Status: Acute (2) Complicated urinary tract infection: Status: Acute (3) Acute hyponatremia: Status: Acute (4) Hypocalcemia: Status: Acute Plan a 71 years old male with PMH of asthma, HTN, bladder cancer post resection and urostomy who presents to the hospital feeling weakness, chills and fever. gram-negative bacteremia 2/2 complicated UTI post radical cystectomy and creation of neobladder CT scan showing persistent moderate right-sided hydronephrosis with proximal ureteral dilatation Pending urine and blood cultures as 1 set growing GNR Not septic Start ceftriaxone Vomiting Secondary to infection Use Zofran as needed Hyponatremia Sodium dropped to 128 Hold any fluids, encourage p>o> intake Monitor BMP Hypocalcemia Corrected calcium of 7>7 To give replacement Monitor BMP Metabolic acidosis None anion gap< lactic acid negative Chronically low sodium bicarb levels To give sodium bicarb replacement and follow BMP Type 2 diabetes continue SSI diabetic diet Asthma Not in exacerbation You Spiriva daily DVT PPX Lovenox The patient will need to overnight hospital stay for treatment of urinary tract infection to prevent possible worsening into sepsis Quality Stroke Does the patient have a stroke diagnosis?: No VTE Prior VTE?: No VTE Risk Level:: Medical - moderate - high VTE Device Contraindication: Treatment Not Indicated VTE Drug Contraindication: N/A - Med Ordered
[2022-02-09 13:28] LABS: Glucose, Whole Blood 128 mg/dL (60-115)
[2022-02-09 13:50] VITALS: BP 140/71; PULSE 86; RESP 16; TEMP 38.8; O2SAT 97
[2022-02-09] MEDS: cefTRIAXone sodium 1 GM in 0.9 % Sodium Chloride 50 ML IV (14:42)
[2022-02-09] MEDS: Calcium Gluconate/NaCl,Iso-Osm 2 GM/100 ML PLAST..BAG IV (14:43)
[2022-02-09] MEDS: Sodium Bicarbonate 650 MG TABLET PO ×2 (14:43→22:31)
[2022-02-09 17:57] LABS: Glucose, Whole Blood 147 mg/dL (60-115)
[2022-02-09] MEDS: Enoxaparin Sodium 40 MG/0.4 ML SYRINGE SUBCUT (20:26)
[2022-02-09 21:09] LABS: Glucose, Whole Blood 190 mg/dL (60-115)
[2022-02-09] MEDS: Insulin Lispro 100 UNIT/ML 3 ML VIAL SUBCUT (22:28)
[2022-02-09] MEDS: bisacodyL 5 MG TABLET.DR 10 MG PO (22:29)
[2022-02-10] VITALS: BP 146/68; PULSE 84; RESP 16; TEMP 37.4; O2SAT 100
[2022-02-10] MEDS: 0.9 % Sodium Chloride Flush 3 ML SYRINGE IVFLUSH ×2 (01:48→10:12)
[2022-02-10 06:58] LABS: Anion Gap 14 (12-20); Blood Urea Nitrogen 32 mg/dL (9-16); Calcium 8.5 mg/dL (8.4-10.2); Carbon Dioxide 15 mmol/L (22-29); Chloride 107 mmol/L (96-108); Creatinine Clr Calc Pharmacy 33.2; Estimated Glomerular Filt Rate 45; Glucose Random 117 mg/dL (60-115); Potassium 3.6 mmol/L (3.3-5.1); Sodium 132 mmol/L (135-145)
[2022-02-10 07:58] LABS: Glucose, Whole Blood 116 mg/dL (60-115)
--- NOTE | 2022-02-10 09:38 | PC.NURSE ---
patient washed in bathroom / bed change .
--- NOTE | 2022-02-10 09:45 | PC.NURSE ---
pt reported that his urostomy bag was leaking and his usually changes it. pt's brought in appliance from home and changed urostomy, pt's emptied urinal before this residential mortgage underwriter was able to document output.
[2022-02-10] MEDS: Sodium Bicarbonate 650 MG TABLET PO ×2 (10:13→21:40)
[2022-02-10] MEDS: Folic Acid 1 MG TABLET PO (10:13)
[2022-02-10] MEDS: Atorvastatin Calcium 10 MG TABLET PO (10:13)
[2022-02-10] MEDS: amLODIPine Besylate 5 MG TABLET PO (10:13)
[2022-02-10] MEDS: Montelukast Sodium 10 MG TABLET PO (10:19)
[2022-02-10 11:06] VITALS: BP 137/67; PULSE 74; RESP 14; TEMP 36.3; O2SAT 99
--- NOTE | 2022-02-10 11:18 | P.PNIM_ITS ---
Subjective Subjective Date of Service: 02/10/22 Interval History: seen and evaluated this morning Had fever during the day yesterday but nothing overnight Reports overall feeling better Blood culture growing sensitive E coli No other overnight events Review of Systems Reported fever, chills and malaise No chest pain, palpitation No shortness of breath or coughing No abdominal pain, nausea or vomiting No urinary symptoms No any rash or wounds Physical Exam Vital Signs: Vital Signs: Last Vital Signs Temp 97.4 F 02/10/22 11:06 Pulse 74 02/10/22 11:06 Resp 14 02/10/22 11:06 BP 137/67 02/10/22 11:06 Pulse Ox 99 02/10/22 11:06 O2 Del Method 02/10/22 11:06 BMI result Body Mass Index 24.7 Const: Other: Constitutional : Alert, oriented, not in distress Neck : Normal inspection, Supple Cardiovascular : RRR, no JVP, no lower extremity edema Respiratory : fair bilateral air entry, no crackles, wheezes or rhonchi Gastrointestinal: soft, lax, Normal bowel sounds, Non tender Skin : Warm, Dry Urology: urostomy bag in place, urine yellow and clear, no CVA tenderness Neurological : Alert & oriented x3, No focal deficit , CN 2-12 within normal Objective Data Active Medications Acetaminophen (Acetaminophen 325 Mg Tablet) 650 mg PO Q6H PRN PRN Reason: Pain, Mild (Pain Scale 1-3) Last Admin: 02/09/22 04:59 Dose: 650 mg Documented By: JAYLEEN Amlodipine Besylate (Amlodipine Besylate 5 Mg Tablet) 5 mg PO DAILY [facility]; Protocol Last Admin: 02/10/22 10:13 Dose: 5 mg Documented By: DU Atorvastatin Calcium (Atorvastatin Calcium 10 Mg Tablet) 10 mg PO DAILY [facility] Last Admin: 02/10/22 10:13 Dose: 10 mg Documented By: DU Bisacodyl (Bisacodyl 5 Mg Tablet.) 10 mg PO BEDTIME [facility] Last Admin: 02/09/22 22:29 Dose: 10 mg Documented By: GAGE Enoxaparin Sodium (Enoxaparin Sodium 40 Mg/0.4 Ml Syringe) 40 mg SUBCUT Q24H [facility] Last Admin: 02/09/22 20:26 Dose: 40 mg Documented By: GAGE Folic Acid (Folic Acid 1 Mg Tablet) 1 mg PO DAILY [facility] Last Admin: 02/10/22 10:13 Dose: 1 mg Documented By: DU Ceftriaxone Sodium 1 gm/ (Sodium Chloride) 50 mls @ 100 mls/hr IV Q24H [facility] Last Infusion: 02/09/22 18:35 Dose: 0 mls/hr Documented By: DU Insulin Human Lispro (Insulin Lispro 100 Unit/Ml 3 Ml Vial) 0 unit SUBCUT QIDACHS [facility]; Protocol Last Admin: 02/10/22 08:32 Dose: Not Given Documented By: DU Non-Admin Reason: No Insulin Coverage Montelukast Sodium (Montelukast Sodium 10 Mg Tablet) 10 mg PO DAILY [facility] Last Admin: 02/10/22 10:19 Dose: 10 mg Documented By: DU Ondansetron HCl (Ondansetron Hcl 4 Mg/2 Ml Vial) 4 mg IVPUSH Q8H PRN PRN Reason: Nausea and Vomiting Pharmacy Consult (Consult Rx Perform Med Rec) 1 each MISCELLANE ONCE PRN PRN Reason: Consult order Sodium Bicarbonate (Sodium Bicarbonate 650 Mg Tablet) 650 mg PO BID [facility] Last Admin: 02/10/22 10:13 Dose: 650 mg Documented By: DU Sodium Chloride (0.9 % Sodium Chloride Flush 3 Ml Syringe) 3 ml IVFLUSH QSHIFT [facility] Last Admin: 02/10/22 10:12 Dose: 3 ml Documented By: DU Tiotropium [place] (Tiotropium [place] 18 Mcg Cap.W.Dev) 1 puff INHALE RDAILY [facility] Last Admin: 02/10/22 07:53 Dose: Not Given Documented By: ELOY Non-Admin Reason: Patient Refused Labs CBC & Chem 7: 02/09/22 06:54 02/10/22 06:24 Labs: Laboratory Results - last 24 hr 02/09/22 02/09/22 02/09/22 13:22 17:54 20:58 Anion Gap Estim Creat Clear Calc Estimated GFR POC Glucose 128 H 147 H 190 H Random Glucose Calcium 02/10/22 02/10/22 06:24 07:24 Anion Gap 14 Estim Creat Clear Calc 33.2 Estimated GFR 45 POC Glucose 116 H Random Glucose 117 H Calcium 8.5 D Microbiology Microbiology Results: Microbiology 02/08/22 16:07 Blood Culture - Preliminary Blood - Venous No growth after 24 hours. 02/08/22 15:01 Blood Culture - Preliminary Blood - Venous No growth after 24 hours. Assessment and Plan (1) Hypocalcemia: Status: Acute (2) Acute hyponatremia: Status: Acute (3) Complicated urinary tract infection: Status: Acute (4) Gram-negative bacteremia: Status: Acute Plan a 71 years old male with PMH of asthma, HTN, bladder cancer post resection and urostomy who presents to the hospital feeling weakness, chills and fever. E coli bacteremia 2/2 complicated UTI post radical cystectomy and creation of neobladder CT scan showing persistent moderate right-sided hydronephrosis with proximal ureteral dilatation Blood culture growing sensitive E coli No fever since yesterday, will need to be afebrile for 24 hours Continue ceftriaxone Vomiting Secondary to infection Use Zofran as needed Hyponatremia Sodium improved to 132 with oral intake Hold any fluids, encourage p>o> intake Monitor BMP Hypocalcemia Corrected Monitor BMP Metabolic acidosis None anion gap, lactic acid negative Chronically low sodium bicarb levels Improved with sodium bicarb replacement follow BMP Type 2 diabetes continue SSI diabetic diet Asthma Not in exacerbation You Spiriva daily DVT PPX Lovenox The patient will need to overnight hospital stay for treatment of E coli bacteremia, needs to be afebrile for 24 hours, to continue IV antibiotics before discharge to prevent possible sepsis. Quality Stroke Does the patient have a stroke diagnosis?: No VTE Prior VTE?: No VTE Risk Level:: Medical - moderate - high VTE Device Contraindication: Treatment Not Indicated VTE Drug Contraindication: N/A - Med Ordered
[2022-02-10 13:08] LABS: Glucose, Whole Blood 130 mg/dL (60-115)
[2022-02-10] MEDS: cefTRIAXone sodium 1 GM in 0.9 % Sodium Chloride 50 ML IV (15:48)
--- NOTE | 2022-02-10 17:26 | PC.NURSE ---
pt alert and oriented, vss, he denies pain. pt given toiletry to wash up in bathroom. meds given as documented. pt's has been at his bedside most of the shift. no complaints.
[2022-02-10 18:25] LABS: Glucose, Whole Blood 206 mg/dL (60-115)
[2022-02-10] MEDS: Enoxaparin Sodium 40 MG/0.4 ML SYRINGE SUBCUT (18:43)
[2022-02-10] MEDS: Insulin Lispro 100 UNIT/ML 3 ML VIAL SUBCUT ×2 (18:43→21:39)
[2022-02-10 20:17] VITALS: BP 124/58; PULSE 87; RESP 15; TEMP 37.3; O2SAT 100
[2022-02-10 21:38] LABS: Glucose, Whole Blood 192 mg/dL (60-115)
[2022-02-10] MEDS: bisacodyL 5 MG TABLET.DR 10 MG PO (21:39)
--- NOTE | 2022-02-10 22:42 | PC.NURSE ---
pt has a nonprod cough, sat 100%, pt states he takes a inhaler but has not taken it in 3 days. pt would like a treatment before bed. lungs clear emil no s/s of resp distress, talking in full sent. call to hospitalist to order.
--- NOTE | 2022-02-10 22:50 | PC.NURSE ---
pharmacy called to stock spiriva and dr white will place a order for a neb treatment.
[2022-02-11] VITALS: BP 146/67; PULSE 80; RESP 16; TEMP 36.4; O2SAT 100
[2022-02-11] MEDS: 0.9 % Sodium Chloride Flush 3 ML SYRINGE IVFLUSH ×2 (01:39→10:01)
[2022-02-11 03:13] VITALS: BP 144/67; PULSE 80; RESP 16; TEMP 36; O2SAT 99
[2022-02-11 05:35] LABS: Anion Gap 13 (12-20); Blood Urea Nitrogen 34 mg/dL (9-16); Calcium 8.2 mg/dL (8.4-10.2); Carbon Dioxide 18 mmol/L (22-29); Chloride 104 mmol/L (96-108); Creatinine Clr Calc Pharmacy 37.3; Estimated Glomerular Filt Rate 51; Glucose Random 134 mg/dL (60-115); Potassium 3.5 mmol/L (3.3-5.1); Sodium 131 mmol/L (135-145)
--- NOTE | 2022-02-11 07:02 | PC.NURSE ---
Report received from Reymundo Guy RN
[2022-02-11 07:25] LABS: Glucose, Whole Blood 140 mg/dL (60-115)
--- NOTE | 2022-02-11 07:30 | PC.NURSE ---
Assumed care at 2315. Patient alert and oriented, cooperative w/ care. Up ad otto to bathroom. Denies pain. Afebrile. Call parra within reach.
[2022-02-11 07:59] VITALS: PULSE 84; RESP 16; O2SAT 99
[2022-02-11] MEDS: amLODIPine Besylate 5 MG TABLET PO (09:58)
[2022-02-11] MEDS: Folic Acid 1 MG TABLET PO (09:58)
[2022-02-11] MEDS: Montelukast Sodium 10 MG TABLET PO (09:58)
[2022-02-11] MEDS: Atorvastatin Calcium 10 MG TABLET PO (09:59)
[2022-02-11] MEDS: Sodium Bicarbonate 650 MG TABLET PO (10:00)
--- NOTE | 2022-02-11 11:28 | PC.NURSE ---
Report given to RAIN Elliott
--- NOTE | 2022-02-11 11:30 | MHC.CM.PN ---
PT REPORTS HE LIVES AT HOME WITH HIS AND IS INDEPENDENT WITH CARE PT DENIES USING DME OR HAVING HOME SERVICES PT REPORTS HE HAS A HCP, NAMING HIS NEPHEW, DR. RUIZ, HIS AGENT PT REPORTS HIS PCP IS NABOR BOSS HE REPORTS BEING COVID-19 VACCINATED WITH MODERNA IMM DELIVERED, COPY SENT TO [facility] CURRENT DC PLAN IS HOME WITH NO SERVICES FAMILY TO TRANSPORT
[2022-02-11 11:32] LABS: Glucose, Whole Blood 171 mg/dL (60-115)
--- NOTE | 2022-02-11 11:37 | PM.DS ---
DS: Providers Provider Date of Service: 02/11/22 Date of admission: 02/08/22 15:37 Primary care physician: Unknown Physician DS: Diagnosis Discharge Diagnosis (1) Hypocalcemia: Status: Acute (2) Complicated urinary tract infection: Status: Acute (3) Gram-negative bacteremia: Status: Acute (4) Acute UTI: Status: Acute (5) Fever: Status: Acute DS: Summary Hospital Course Hospital Course: Admission note HPI ?a 71 years old male with PMH of asthma, HTN, bladder cancer post resection and urostomy who presents to the hospital feeling weakness, chills and fever.? The patient reports that he has recurrent infections that he has been following up with Dr. Estrella for.? He presented to the hospital with complains of malaise, fever and vomiting with back pain on the right side.? Denies any chest pain, shortness of breath, palpitation, change in bowel habit.? He did not notice any change in the urine output from the urostomy. ? Blood work in the emergency was consistent with hyponatremia. In the emergency he was started on IV antibiotics.? Will be admitted for treatment of UTI. Hospital course The patient was admitted for treatment of UTI. Blood culture was positive for sensitive E coli. Treated with IV antibiotic of ceftriaxone with good response as he became afebrile for the last 24 hours. White blood cells trended down and the patient was able to ambulate and tolerate diet. Will be discharged home on cefpodoxime to finish total of 14 days of antibiotics. Continue cefpodoxime for 10 more days to follow-up with PCP as outpatient Time Spent with Patient Time attestation: Total time spent providing and/or coordinating discharge services: Discharge coordination time: Greater than 30 minutes Quality: Safe Use of Opioids Does Pt have an Active Cancer Diagnosis on the Problem List?: No Quality: Stroke Does the patient have a stroke diagnosis?: No Physical Exam Vital Signs: Vital Signs: Last Vital Signs Temp 96.8 F 02/11/22 03:13 Pulse 84 02/11/22 07:59 Resp 16 02/11/22 07:59 BP 144/67 H 02/11/22 03:13 Pulse Ox 99 02/11/22 03:13 O2 Del Method 02/11/22 03:13 BMI result Body Mass Index 24.7 Const: Other: Constitutional : Alert, oriented, not in distress Neck : Normal inspection, Supple Cardiovascular : RRR, no JVP, no lower extremity edema Respiratory : fair bilateral air entry, no crackles, wheezes or rhonchi Gastrointestinal: soft, lax, Normal bowel sounds, Non tender Skin : Warm, Dry Urology: urostomy bag in place, urine yellow and clear, no CVA tenderness Neurological : Alert & oriented x3, No focal deficit , CN 2-12 within normal DS: Data Data Completed and Pending Labs on day of discharge: Laboratory Results - last 24 hr 02/10/22 02/10/22 02/10/22 12:56 18:21 21:34 Sodium Potassium Chloride Carbon Dioxide Anion Gap BUN Creatinine Estim Creat Clear Calc Estimated GFR POC Glucose 130 H 206 H 192 H Random Glucose Calcium 02/11/22 02/11/22 02/11/22 04:48 07:07 11:24 Sodium 131 L Potassium 3.5 Chloride 104 Carbon Dioxide 18 L Anion Gap 13 BUN 34 H Creatinine 1.36 Estim Creat Clear Calc 37.3 Estimated GFR 51 POC Glucose 140 H 171 H Random Glucose 134 H Calcium 8.2 L Preliminary micro results at discharge 02/08/22 16:07 Blood Culture - Preliminary Blood - Venous No growth after 48 hours. 02/08/22 15:01 Blood Culture - Preliminary Blood - Venous No growth after 48 hours. Discharge Plan Discharge Patient Disposition: Home, Self-Care Discharge Diagnosis: E coli bacteremia Complicated UTI Referrals: Physician,Unknown J [Primary Care Provider] - 1 Week Discharge Medications: New cefpodoxime 100 mg tablet 100 mg PO BID Qty: 20 0RF Rx Instructions: must administer with a meal/food Continued bisacodyl 5 mg Tablet,Delayed Release (Dr/Ec) 10 mg PO BEDTIME albuterol sulfate 90 mcg/actuation HFA aerosol inhaler 2 puff PO QID PRN (Reason: Shortness Of Breath) montelukast 10 mg tablet 10 mg PO DAILY atorvastatin 10 mg tablet 10 mg PO DAILY fluticasone propion-salmeterol 113-14 mcg/actuation aerosol powdr breath activated 1 inh inhalation BID Spiriva Respimat 1.25 mcg/actuation mist 2 puff inhalation DAILY (DME) FreeStyle Lite Strips Strip See Rx Instructions Not Applicable DAILY Qty: 10 Rx Instructions: As directed amlodipine 5 mg tablet 5 mg PO DAILY metformin 500 mg tablet 500 mg PO BID (DME) lancets [FreeStyle Lancets] 28 gauge misc See Rx Instructions topical BID Qty: 100 Rx Instructions: As directed folic acid 1 mg tablet 1 mg PO DAILY Discontinued cefuroxime axetil 250 mg tablet 250 mg PO BID 10 Days Qty: 20 0RF Discharge Orders: Discharge Order (Routine); Ordered 02/11/22 Ordered By: Kandis Barry Activity on Discharge: As tolerated Stand Alone Forms: Patient Portal Discharge page Care Plan Goals: Read below Health Concerns: Read below Plan of Treatment: Read below Assessment: You were admitted to the hospital for evaluation of fever. Found to have complicated UTI with associated E coli bacteremia. Treated with IV antibiotics with good response. Continue cefpodoxime for 10 more days to follow-up with PCP as outpatient.
== END 2022-02-11 13:08 | disposition home or self-care (01) | DRG 690 ==
LOC: HO.ED 07:11 → HO.EDOVER 15:44
PROVIDERS: Emergency Medicine; Admitting Provider Student in an Organized Health Care Education/Training Program; Emergency Provider Emergency Medicine Emergency Medical Services; PCP Internal Medicine; Visit Provider Student in an Organized Health Care Education/Training Program
DX: N13.6 Pyonephrosis (principal); E87.1 Hypo-osmolality and hyponatremia; R78.81 Bacteremia; E87.2 Acidosis; J45.909 Unspecified asthma, uncomplicated; B96.20 Unspecified Escherichia coli [E. coli] as the cause of diseases classified elsewhere; E11.9 Type 2 diabetes mellitus without complications; E83.51 Hypocalcemia; Z93.6 Other artificial openings of urinary tract status; Z20.822 Contact with and (suspected) exposure to COVID-19; Z85.51 Personal history of malignant neoplasm of bladder; Z88.6 Allergy status to analgesic agent; Z79.84 Long term (current) use of oral hypoglycemic drugs; Z79.899 Other long term (current) drug therapy
CPT/HCPCS: 36415; 74176; 80048; 80076; 81001; 82947; 83930; 85025; 85027; 87040; 87635; 94640; 96361; 96365; 96375; 99285; J0610; J0696; J1650; J2405

== ENCOUNTER 2022-03-17 11:33 | Outpatient (REF) | payer OTHER, MEDICAID, SELFPAY ==
[2022-03-17 12:40] LABS: Hemoglobin 12.1 g/dl (14.0-18.0); Mean Corpuscular HGB Conc 32.7 g/dl (31.0-36.0); Mean Corpuscular Hemoglobin 30.7 pg (27.0-33.0); Mean Corpuscular Volume 93.9 fL (80.0-98.0); Mean Platelet Volume 11.8 fL (9.4-12.4); Platelet Count 136 X10*3/uL (160-400); Red Blood Count 3.94 X10*6/uL (4.60-5.80); Red Cell Distribution Width 14.1 % (11.0-16.0); White Blood Count 6.7 X10*3/uL (4.8-10.8)
[2022-03-17 12:58] LABS: Alanine Aminotransferase 26 U/L (0-40); Albumin Level 4.2 g/dL (3.5-5.0); Alkaline Phosphatase 158 U/L (39-117); Aspartate Amino Transferase 27 U/L (5-37); Bilirubin Direct 0.3 mg/dL (0.0-0.5); Bilirubin Total 0.5 mg/dL (0.0-1.0); Iron 94 mcg/dL (45-160); Percent Iron Saturation 49 % (15-50); Total Iron Binding Capacity 192 mcg/dL (228-428); Total Protein 7.4 g/dL (6.5-8.0); Unsaturated Iron Binding 98 ug/dL
[2022-03-17 13:20] LABS: Ferritin 328 ng/mL (20-250)
[2022-03-17 14:24] LABS: Prothrombin Time 11.9 SEC (10.0-13.1)
[2022-03-19 14:47] LABS: Anti Nuclear Antibody Screen NEGATIVE (NEGATIVE)
[2022-03-20 14:32] LABS: Mitochondrial Antibodies NEGATIVE (NEGATIVE)
[2022-03-20 23:02] LABS: Smooth Muscle Antibody <20 U (<20)
[2022-03-21 16:11] LABS: FIB-ALT 21 U/L (9-46); FIB-Alpha-2-Macroglobulin 424 mg/dL (106-279); FIB-Apolipoprotein A1 164 mg/dL (94-176); FIB-GGT 274 U/L (3-70); FIB-Haptoglobin 106 mg/dL (43-212); FIB-Total Bilirubin 0.5 mg/dL (0.2-1.2); Liver Fibrosis Score 0.85; Liver Fibrosis Stage F4; Nec Inflam Act Grade A0-A1; Nec Inflam Act Score 0.18
== END 2022-03-17 11:34 | disposition home or self-care (01) ==
LOC: HO.LAB 11:33
PROVIDERS: PCP Internal Medicine; Visit Provider Internal Medicine Gastroenterology
DX: K74.60 Unspecified cirrhosis of liver (principal)
CPT/HCPCS: 36415; 80076; 81596; 82728; 83540; 85027; 85610; 86015; 86038; 86039; 86255; 86256

== ENCOUNTER 2022-04-15 08:51 | Outpatient (REF) | payer OTHER, MEDICAID, SELFPAY ==
[2022-04-15 09:18] LABS: MANUAL DIFF FLAG NO
[2022-04-15 10:03] LABS: Basophils Absolute Auto 0.1 X10*3/uL (0.0-0.2); Basophils Percent Auto 1.2 % (0-2); Eosinophils Percent Auto 15.2 % (0-4); Hematocrit 38.2 % (42.0-52.0); Hemoglobin 12.5 g/dl (14.0-18.0); Imm Gran Abs Auto 0.03 X10*3/uL (0.00-0.03); Imm Gran Pct Auto 0.5 % (0.0-0.4); Lymphocytes Absolute Auto 1.8 X10*3/uL (1.2-4.9); Lymphocytes Percent Auto 27.7 % (20-40); Mean Corpuscular HGB Conc 32.7 g/dl (31.0-36.0); Mean Corpuscular Hemoglobin 30.3 pg (27.0-33.0); Mean Corpuscular Volume 92.5 fL (80.0-98.0); Mean Platelet Volume 11.6 fL (9.4-12.4); Monocytes Absolute Auto 0.5 X10*3/uL (0.1-1.2); Monocytes Percent Auto 7.6 % (2-11); Neutrophils Absolute Auto 3.1 x10*3/uL (2.0-8.3); Neutrophils Percent Auto 47.8 % (45-73); Platelet Count 150 X10*3/uL (160-400); Red Blood Count 4.13 X10*6/uL (4.60-5.80); Red Cell Distribution Width 13.5 % (11.0-16.0); White Blood Count 6.4 X10*3/uL (4.8-10.8)
[2022-04-15 10:22] LABS: Creatinine Urine 39.86 mg/dL; Microalbum/Creatinine Ratio Ur 100.3 ug/mg cr
[2022-04-15 10:28] LABS: Alanine Aminotransferase 44 U/L (0-40); Albumin Level 4.1 g/dL (3.5-5.0); Alkaline Phosphatase 161 U/L (39-117); Anion Gap 16 (12-20); Aspartate Amino Transferase 46 U/L (5-37); Bilirubin Total 0.4 mg/dL (0.0-1.0); Blood Urea Nitrogen 23 mg/dL (9-16); Calcium 8.9 mg/dL (8.4-10.2); Carbon Dioxide 16 mmol/L (22-29); Chloride 110 mmol/L (96-108); Cholesterol 153 mg/dL; Estimated Glomerular Filt Rate 51; Glucose Random 147 mg/dL (60-115); HDL Cholesterol 46 mg/dL; LDL Cholesterol Calculated 84 mg/dl; Potassium 3.9 mmol/L (3.3-5.1); Sodium 138 mmol/L (135-145); Total Protein 7.6 g/dL (6.5-8.0); Triglycerides 115 mg/dL
[2022-04-15 10:40] LABS: Thyroid Stimulating Hormone 3.89 uIU/mL (0.32-4.0)
== END 2022-04-15 08:52 | disposition home or self-care (01) ==
LOC: HO.LAB 08:51
PROVIDERS: PCP Internal Medicine; Visit Provider Internal Medicine
DX: D64.9 Anemia, unspecified (principal); K74.69 Other cirrhosis of liver; R55 Syncope and collapse; I12.9 Hypertensive chronic kidney disease with stage 1 through stage 4 chronic kidney disease, or unspecified chronic kidney disease; N18.9 Chronic kidney disease, unspecified; E11.22 Type 2 diabetes mellitus with diabetic chronic kidney disease
CPT/HCPCS: 36415; 80053; 80061; 82043; 84443; 85025

== ENCOUNTER 2022-04-30 06:03 | Outpatient (REF) | payer OTHER, MEDICAID, SELFPAY ==
--- NOTE | ~2022-04-30 | CT_ITS ---
EXAMINATION: CT ABDOMEN AND PELVIS WITHOUT CONTRAST CLINICAL INFORMATION: Bladder cancer COMPARISON: Previous CT of the abdomen and pelvis most recent January 2022 TECHNIQUE: Multidetector volumetric imaging was performed from the superior aspect of the liver through the pubic symphysis. Sagittal and coronal reformatted images were obtained on the technologist's workstation. This CT examination was performed using dose optimization techniques as appropriate, variously including the following: *Automated exposure control *Adjustment of mA and/or kV according to patient size (this includes techniques or standardized protocols for targeted exams where dose is matched to indication/reason for exam; i.e. extremities or head) *Use of iterative reconstruction technique DLP: 330 mGy-cm FINDINGS: LUNG BASES: Scarring or chronic subsegmental atelectasis at the left lung base. LIVER, GALLBLADDER, AND BILIARY TREE: Cirrhotic-appearing liver. No focal liver lesion or biliary duct dilatation. The gallbladder is unremarkable with no evidence of radiopaque gallstones, gallbladder wall thickening, or obvious pericholecystic inflammatory changes. PANCREAS: Unremarkable. SPLEEN: Unremarkable. ADRENAL GLANDS: Unremarkable. KIDNEYS AND URETERS: The left kidney is larger than the right. The right kidney measures 7 and the left 11.5 cm in length. Stable mild to moderate right hydronephrosis. The right ureter does not appear dilated. There is question of increased soft tissue or wall thickening in the right proximal ureter. No stone is seen. The left kidney is normal. The left ureter is normal. BLADDER: Surgically removed. No pelvic mass. GASTROINTESTINAL TRACT: Postsurgical changes following right lower quadrant ileal conduit and urostomy. Small and large bowel is otherwise unremarkable. ABDOMINAL WALL: Small parastomal hernia containing fat. LYMPH NODES: No enlarged lymph nodes. Surgical clips in the pelvis suggestive of lymph node dissection. VASCULAR: Atherosclerotic disease. No aneurysm. PELVIC VISCERA: The prostate gland has been removed. OSSEOUS STRUCTURES: Degenerative changes of the spine. CT/CT abdomen pelvis wo IV con IMPRESSION: Stable postsurgical changes following radical cystectomy, ileal conduit and right lower quadrant urostomy. Small left kidney. Stable mild to moderate right hydronephrosis. Question increased soft tissue or wall thickening of the right proximal ureter. Ureteral mass or stricture should be considered. This does not appear appreciably changed from previous exams. Cirrhotic-appearing liver. Fleischner guidelines were followed.
== END 2022-04-30 06:04 | disposition home or self-care (01) ==
LOC: HO.CT 06:03
PROVIDERS: PCP Internal Medicine; Visit Provider Urology
DX: C67.9 Malignant neoplasm of bladder, unspecified (principal)
CPT/HCPCS: 74176

== ENCOUNTER 2022-05-06 10:11 | Outpatient (REF) | payer OTHER, MEDICAID, SELFPAY ==
--- NOTE | ~2022-05-06 | US_ITS ---
EXAMINATION: US COMPLETE ABDOMEN WITH LIVER ELASTOGRAPHY CLINICAL INFORMATION: Cirrhosis COMPARISON: Previous CT of the abdomen and pelvis most recent 04/30/2022 and abdominal ultrasound October 2021 TECHNIQUE: Real-time imaging of the abdominal viscera. Noninvasive ultrasound liver fibrosis assessment is performed using Kirstin ElastPQ point quantification shear wave elastography (2D-SWE) with a C5-2 MHz transducer. Multiple elastography samples are obtained. FINDINGS: PANCREAS: Normal. ABDOMINAL AORTA: The proximal, middle, and distal aortic segments are normal in caliber. INFERIOR VENA CAVA: Visualized portions are normal. LIVER: Liver echotexture is heterogeneous suggestive of hepatocellular disease. The contour of the liver is slightly irregular suggestive of cirrhosis. No focal lesion or intrahepatic biliary duct dilatation. The right lobe measures 13 cm in length. The left lobe measures 11 cm in length. Portal flow is Shear wave liver elastography median stiffness is 2.3 m/s (reference: normal median stiffness is 1.3 m/s or less). IQR/median stiffness to assess sampling precision is 0.17 (reference: good quality data set is IQR/median stiffness of 0.15 or less). GALLBLADDER: Normal. The gallbladder is physiologically distended without evidence of stones, sludge, polyps, wall thickening or pericholecystic fluid. COMMON BILE DUCT: Normal in caliber measuring 0.3 cm in diameter. RIGHT KIDNEY: The right kidney is smaller than the left. There is moderate right hydronephrosis. The right kidney measures 8.8 cm in length. LEFT KIDNEY: Normal. No hydronephrosis. No renal calculi or focal parenchymal lesions. The kidney measures 11 cm in maximum dimension. SPLEEN: Normal. The spleen measures 9.5 cm in maximum dimension. FREE FLUID: None. US/US abdomen comp w elastography IMPRESSION: 1. Impression: Cirrhotic-appearing liver. No focal liver lesion seen. Moderate right hydronephrosis. The right kidney is smaller than the left. 2. Liver elastography: Slightly limited due to sampling error. Elevated liver stiffness suggestive of compensated advanced chronic liver disease. REFERENCE: Society of Radiologists in Ultrasound Liver Stiffness Thresholds (2019): LIVER STIFFNESS THRESHOLDS: *Liver Stiffness equal or less than 1.3 m/s: High probability of being normal. *Liver Stiffness less than 1.7 m/s: In the absence of other known clinical signs, rules out compensated advanced chronic liver disease. *Liver Stiffness 1.7-2.1 m/s: Suggestive of compensated advanced chronic liver disease but need further test for confirmation. *Liver Stiffness over 2.1 m/s: Rules in compensated advanced chronic liver disease. *Liver Stiffness over 2.4 m/s: Suggestive of clinically significant portal hypertension. QUALITY OF DATA SET: *IQR/Median value equal or less than 0.15 implies a quality data set. *IQR/Median value over 0.15 implies a poor quality data set. SIGNIFICANT CHANGE FROM PRIOR EXAM: Significant change if liver stiffness measurement is 10% or greater from prior exam. OTHER CONSIDERATIONS: The stage of liver fibrosis may be overestimated in the setting of acute hepatitis, liver inflammation, elevated liver function tests, hepatic vascular congestion, obstructive cholestasis, non-fasting state, and infiltrative diseases such as amyloidosis and lymphoma. In some patients with NAFLD, the liver stiffness thresholds for compensated advanced chronic liver disease may be lower. In causes other than viral hepatitis and NAFLD, liver stiffness thresholds are not well established.
[2022-05-06 11:25] LABS: MANUAL DIFF FLAG NO
[2022-05-06 12:17] LABS: Basophils Absolute Auto 0.1 X10*3/uL (0.0-0.2); Eosinophils Absolute Auto 0.7 X10*3/uL (0.0-0.4); Eosinophils Percent Auto 11.7 % (0-4); Hematocrit 37.8 % (42.0-52.0); Hemoglobin 12.8 g/dl (14.0-18.0); Imm Gran Abs Auto 0.06 X10*3/uL (0.00-0.03); Immature Retic Fraction 14.7 % (2.3-13.4); Lymphocytes Absolute Auto 1.5 X10*3/uL (1.2-4.9); Lymphocytes Percent Auto 23.6 % (20-40); Mean Corpuscular HGB Conc 33.9 g/dl (31.0-36.0); Mean Corpuscular Hemoglobin 31.2 pg (27.0-33.0); Mean Corpuscular Volume 92.2 fL (80.0-98.0); Mean Platelet Volume 11.6 fL (9.4-12.4); Monocytes Absolute Auto 0.4 X10*3/uL (0.1-1.2); Monocytes Percent Auto 5.9 % (2-11); Neutrophils Absolute Auto 3.5 x10*3/uL (2.0-8.3); Neutrophils Percent Auto 56.8 % (45-73); Platelet Count 134 X10*3/uL (160-400); Red Cell Distribution Width 13.4 % (11.0-16.0); Retic HGB Equivalent 35.7 pg (30.0-35.0); Reticulocyte Percent 2.8 % (0.5-1.8); Reticulocytes Absolute 0.113 X10*6/uL (0.026-0.095); White Blood Count 6.2 X10*3/uL (4.8-10.8)
[2022-05-06 12:23] LABS: Blood Urea Nitrogen 20 mg/dL (9-16); Estimated Glomerular Filt Rate 48
[2022-05-06 12:42] LABS: Ferritin 363 ng/mL (20-250)
[2022-05-06 13:21] LABS: Folate > 20.0 ng/mL (> or = 4.0)
== END 2022-05-06 10:12 | disposition home or self-care (01) ==
LOC: HO.US 10:11
PROVIDERS: Urology; Absent Provider Internal Medicine Medical Oncology; PCP Internal Medicine; Visit Provider Internal Medicine Gastroenterology
DX: C67.9 Malignant neoplasm of bladder, unspecified (principal); K74.60 Unspecified cirrhosis of liver; D64.9 Anemia, unspecified
CPT/HCPCS: 36415; 76705; 76981; 82565; 82728; 82746; 84520; 85025; 85045

== ENCOUNTER 2022-12-08 09:10 | Outpatient (REF) | payer OTHER, MEDICAID, SELFPAY ==
[2022-12-08 11:51] LABS: Alanine Aminotransferase 28 U/L (0-40); Albumin Level 3.6 g/dL (3.5-5.0); Alkaline Phosphatase 234 U/L (39-117); Anion Gap 13 (12-20); Aspartate Amino Transferase 57 U/L (5-37); Bilirubin Total 0.7 mg/dL (0.0-1.0); Blood Urea Nitrogen 19 mg/dL (9-16); Carbon Dioxide 17 mmol/L (22-29); Chloride 110 mmol/L (96-108); Estimated Glomerular Filt Rate 53; Glucose Random 198 mg/dL (60-115); Potassium 4.3 mmol/L (3.3-5.1); Sodium 136 mmol/L (135-145); Total Protein 7.7 g/dL (6.5-8.0)
[2022-12-08 12:42] LABS: Estimated Average Glucose 194 mg/dL; Hemoglobin A1c % 8.4 %
[2022-12-08 12:46] LABS: Prostate Specific Antigen < 0.10 ng/mL (<0.05-4.0)
[2022-12-11 02:02] LABS: TSpotTB Negative (Negative)
[2022-12-11 02:03] LABS: TS Negative Control Passed; TS Panel A 0; TS Panel B 0; TS Positive Control Passed
== END 2022-12-08 09:11 | disposition home or self-care (01) ==
LOC: HO.LAB 09:10
PROVIDERS: PCP Internal Medicine; Visit Provider Internal Medicine
DX: Z00.00 Encounter for general adult medical examination without abnormal findings (principal); Z12.5 Encounter for screening for malignant neoplasm of prostate; R80.8 Other proteinuria; N18.9 Chronic kidney disease, unspecified; K74.69 Other cirrhosis of liver; D64.9 Anemia, unspecified
CPT/HCPCS: 36415; 80053; 83036; 84153; 86481

== ENCOUNTER 2022-12-09 15:28 | Outpatient (REF) | payer OTHER, MEDICAID, SELFPAY | END 2022-12-09 15:29 | disposition home or self-care (01) | LOC: HO.LAB 15:28 | PROVIDERS: PCP Internal Medicine; Visit Provider Internal Medicine | DX: Z13.89 Encounter for screening for other disorder (principal) ==

== ENCOUNTER → 2022-12-23 10:50 | Outpatient (BNVA) | payer OTHER, MEDICAID, SELFPAY | PROVIDERS: PCP Internal Medicine; Visit Provider Urology | DX: C67.9 Malignant neoplasm of bladder, unspecified (principal) | CPT/HCPCS: 99212 ==

== ENCOUNTER 2023-01-02 14:50 | Outpatient (REF) | payer OTHER, MEDICAID, SELFPAY ==
[2023-01-02 15:08] LABS: MANUAL DIFF FLAG NO
[2023-01-02 15:57] LABS: Basophils Absolute Auto 0.1 X10*3/uL (0.0-0.2); Basophils Percent Auto 1.2 % (0-2); Eosinophils Absolute Auto 1.3 X10*3/uL (0.0-0.4); Eosinophils Percent Auto 16.2 % (0-4); Hemoglobin 11.8 g/dl (14.0-18.0); Imm Gran Abs Auto 0.03 X10*3/uL (0.00-0.03); Imm Gran Pct Auto 0.4 % (0.0-0.4); Lymphocytes Absolute Auto 2.1 X10*3/uL (1.2-4.9); Lymphocytes Percent Auto 26.4 % (20-40); Mean Corpuscular HGB Conc 32.8 g/dl (31.0-36.0); Mean Corpuscular Volume 91.6 fL (80.0-98.0); Monocytes Absolute Auto 0.6 X10*3/uL (0.1-1.2); Monocytes Percent Auto 7.3 % (2-11); Neutrophils Absolute Auto 3.8 x10*3/uL (2.0-8.3); Neutrophils Percent Auto 48.5 % (45-73); Platelet Count 150 X10*3/uL (160-400); Red Blood Count 3.93 X10*6/uL (4.60-5.80); Red Cell Distribution Width 14.5 % (11.0-16.0); White Blood Count 7.8 X10*3/uL (4.8-10.8)
[2023-01-02 16:26] LABS: Alanine Aminotransferase 28 U/L (0-40); Albumin Level 3.8 g/dL (3.5-5.0); Alkaline Phosphatase 210 U/L (39-117); Anion Gap 13 (12-20); Aspartate Amino Transferase 36 U/L (5-37); Bilirubin Total 0.5 mg/dL (0.0-1.0); Blood Urea Nitrogen 19 mg/dL (9-16); Calcium 9.2 mg/dL (8.4-10.2); Carbon Dioxide 17 mmol/L (22-29); Chloride 110 mmol/L (96-108); Estimated Glomerular Filt Rate 53; Glucose Random 142 mg/dL (60-115); Potassium 4.5 mmol/L (3.3-5.1); Sodium 135 mmol/L (135-145); Total Protein 7.9 g/dL (6.5-8.0)
== END 2023-01-02 14:51 | disposition home or self-care (01) ==
LOC: HO.LAB 14:50
PROVIDERS: Visit Provider Internal Medicine Medical Oncology
DX: C68.9 Malignant neoplasm of urinary organ, unspecified (principal); D64.9 Anemia, unspecified
CPT/HCPCS: 36415; 80053; 85025

== ENCOUNTER 2023-01-25 22:56 | Emergency (ER) | payer OTHER, MEDICAID, SELFPAY ==
--- NOTE | ~2023-01-25 | XR_ITS ---
EXAMINATION: XR CHEST CLINICAL INFORMATION: Asthma. COMPARISON: Chest radiograph 02/08/2022. TECHNIQUE: Frontal view of the chest was obtained. FINDINGS: Normal appearance of the cardiomediastinal silhouette. Mild diffuse interstitial thickening. No focal airspace opacity, pleural effusion or pneumothorax. No acute osseous abnormalities. The visualized upper abdomen is within normal limits. XR/XR chest 1V IMPRESSION: Mild diffuse interstitial thickening suggesting small airways disease or atypical/viral infections. No focal infiltrate. Clear pleural spaces.
[2023-01-25 23:05] VITALS: BP 154/75; PULSE 86; RESP 18; TEMP 36.9; O2SAT 97; BMI 23.8
--- OUTSIDE RECORDS SUMMARY | 2023-01-25 23:18 | XMS_ITS ---
Author Name Joe Burnett Jr [address] [place] [address] Organization [facility] [place] [address] [place] [address] Care Team Providers Care Manager Wellness Name Role Phone Joe Burnett Jr Unavailable PROBLEMS Type Condition ICD9-CM Code [id number] Code Onset Dates Condition Status SNOMED Code Problem Cirrhosis of liver without ascites, unspecified hepatic cirrhosis type K74.60 Active [id number] ALLERGIES Substance Reaction Event Type Date Status beta blockers Unknown Non Drug Allergy May, Act anthony Ibuprofen Unknown Drug Allergy May, Active Aspirin Unknown Drug Allergy May, Active ENCOUNTERS Encounter Location Date Diagnosis [facility] [address] [place] [phone] May, [facility] [address] [place] [phone] May, Cirrhosis of liver without ascites, unspecified hepatic cirrhosis type K74.60 and Colonoscopy refused Z53.20 [facility] [address] [place] [phone] May, [facility] [address] [place] [phone] Apr, [facility] [address] [place] [phone] Apr, [facility] [address] [place] [phone] 12 Mar, 2022 [facility] [address] [place] [id number] 08 Mar, 2022 Cirrhosis of liver without ascites, unspecified hepatic cirrhosis type K74.60 IMMUNIZATIONS Vaccine Route Administration Date Status Influenza Unknown May 21, 2022 Administered Influenza Unknown Jul 02, 2021 Administered SOCIAL HISTORY Qualifiers Date Never Smoker REASON FOR REFERRAL FUNCTIONAL STATUS PLAN OF CARE Activity Details VITAL SIGNS Weight 139 lbs 2022-05-30 Weight 133 lbs 2022-03-17 Height 62 in 2022-05-30 Height 62 in 2022-03-17 BMI 25.42 kg/m2 2022-05-30 BMI 24.32 kg/m2 2022-03-17 Temperature 97.8 degrees Fahrenheit Temperature 98.6 degrees Fahrenheit Blood pressure systolic 000 mm Hg Blood pressure diastolic 00 mm Hg 2022-05 MEDICATIONS Medication Instructions Dosage Frequency Start Date End Date Duration Status Folic Acid 1 MG 30 Active Flowflex COVID-19 Ag Home Test - 30 Active metFORMIN HCl 500 MG TAKE 2 TABLETS BY MOUTH EVERY DAY 90 Active Albuterol Sulfate 108 (90 Base) MCG/ACT Inhalation every 4 hrs 1 puff as needed 4h Active Montelukast Sodium 10 MG Orally Once a day 1 tablet 24h 30 day(s) Active Methenamine Hippurate 1 GM TAKE 1 TABLET BY MOUTH DAILY 90 Active amLODIPine Besylate 5 MG 90 Active Atorvastatin Calcium 10 MG Orally Once a day 1 tablet 24h 30 day(s) Active OneTouch Verio - CHECK SUGARS IN VITRO TWICE A DAY 75 Active PROCEDURES Procedure Date Ordered Result Body Site PATIENT NOT ELIG D/T ACTIVE DX HTN May 30, 2022 Pt scrn tbco id as non user May 30, 2022 DOC MEDS VERIFIED W/PT OR RE May 30, 2022 COLORECTAL CA SCREEN DOC REV May 30, 2022 RESULTS Name Result Date Reference Range Blood Urea Nitrogen 2022-05-06 Blood Urea Nitrogen 20 9-16 Creatinine 2022-05-06 Creatinine 1.44 0.5-1.4 Estimated Glomerular Filt Rate 48 US abdomen comp w elastography 2022-05-06 Complete Blood Count no Diff 2022-03-17 White Blood Count 6.7 4.8-10.8 Red Blood Count 3.94 4.60-5.80 Hemoglobin 12.1 14.0-18.0 Hematocrit 37.0 42.0-52.0 Mean Corpuscular Volume 93.9 80.0 -98.0 Mean Corpuscular Hemoglobin 30.7 27.0-33.0 Mean Corpuscular HGB Conc 32.7 31 .0-36.0 Red Cell Distribution Width 14.1 11.0-16.0 Platelet Count 136 160-400 Mean Platelet Volume 11.8 9.4-12. 4 NRBC Pct Auto 0.0 0.0-0.2 NRBC Abs Auto 0.000 0.0-0.012 Prothrombin Time INR 2022-03-17 Prothrombin Time 11.9 10.0-13.1 INTERNATIONAL NORM RATIO 1.0 0.9 -1.1 Liver Panel 2022-03-17 Bilirubin Total 0.5 0.0-1.0 Bilirubin Direct 0.3 0.0-0.5 Aspartate Amino Transferase 27 5-37 Alanine Aminotransferase 26 0-4 0 Total Protein 7.4 6.5-8.0 Albumin Level 4.2 3.5-5.0 Alkaline Phosphatase 158 39-117 Ferritin 2022-03-17 Ferritin 328 20-250 Mitochondrial Antibody 2022-03-17 Mitochondrial Antibodies NEGATIVE NEG ATIVE Mitochondrial Ab Titer TNP Smooth Muscle Antibody 2022-03-17 Smooth Muscle Antibody <20 <20 IRON PROFILE 2022-03-17 Iron 94 45-160 Total Iron Binding Capacity 192 228-428 Percent Iron Saturation 49 15-5 0 Unsaturated Iron Binding 98 Liver Fibrosis Pnl 2022-03-17 Liver Fibrosis Score 0.85 Liver Fibrosis Stage F4 Liver Fibrosis Interpretation SEE NOTE Nec Inflam Act Score 0.18 Nec Inflam Act Grade A0-A1 Nec Inflam Act Interpretation SEE NOTE YTD-Hyuex-1-Macroglobulin 424 10 6-279 FIB-Haptoglobin 106 43-212 FIB-Apolipoprotein A1 164 94-176 FIB-Total Bilirubin 0.5 0.2-1.2 FIB-GGT 274 3-70 FIB-ALT 21 9-46 Reference ID [id number] Footnote SEE NOTE LEIGHTON Reflex Titer and Pattern 2022-03-17 Anti Nuclear Antibody Screen NEGATIVE NEGATIVE Anti Nuclear Antibody Titer TNP Anti Nuclear Antibody Pattern TNP LEIGHTON Titer 2 TNP LEIGHT[place] Pattern 2 TNP LEIGHTON Titer 3 TNP LEIGHTON Pattern 3 TNP REASON FOR VISIT Patient presents today for an upperendoscopy recall, recall, Patient presents today for cirrhosis, ultrasound, labs, lab work/ waiting on pt call back, CIRRHOSIS OF THE LIVER, Patient presents today for CIRRHOSIS OF THE LIVER Insurance Providers Health Insurance Type Health Plan Insurance Address Health Plan Insurance Phone Health Plan Insurance Name Health Plan Coverage Dates Member ID Patient Relationship to Subscriber Patient Address Patient Phone Patient Name Patient Date of Subscriber ID Subscriber Name Subscriber Date of Group No [employer] [address] [facility] [address] [employer] self Isabel Agosto [id number] 01 MEDICAID OF [facility] [address] [facility] [address] MEDICAID OF [facility] self Isabel Agosto [id number] MEDICARE OF [place] [address] [facility] [address] [place]ARE OF [place] self Isabel Agosto [id number]
[2023-01-25 23:22] VITALS: BP 115/79; PULSE 84; RESP 19; O2SAT 98
[2023-01-26] VITALS: BP 148/74; PULSE 77; RESP 18; O2SAT 97
[2023-01-26] LABS: MANUAL DIFF FLAG NO
--- NOTE | 2023-01-26 00:03 | ED.ASTHMA ---
HPI - Asthma General Chief Complaint: Asthma Stated Complaint: difficulty breathing/ coughing Time Seen by Provider: 01/25/23 23:55 Source: patient Mode of arrival: ambulatory Limitations: no limitations History of Present Illness HPI Narrative: Patient comes emergency room complaining of an asthma exacerbation. Patient states that he has not had to come to the hospital for an asthma exacerbation for over 10 years. The patient controls it well with Spiriva, albuterol and montelukast. However, today the patient started becoming wheezy, home medications were not working. Patient denies chest pain, no other symptoms. Related Data Home Medications Medication Instructions Recorded Confirmed amlodipine 5 mg tablet 5 mg PO DAILY 04/18/21 12/23/22 atorvastatin 10 mg tablet 10 mg PO DAILY 04/18/21 12/23/22 blood sugar diagnostic (FreeStyle #10 ea 04/18/21 12/23/22 Lite Strips) fluticasone 113 mcg-salmeterol 14 1 inh inhalation BID 04/18/21 12/23/22 mcg/actuation breath activated powdr metformin 500 mg tablet 500 mg PO BID 04/18/21 12/23/22 montelukast 10 mg tablet 10 mg PO DAILY 04/18/21 12/23/22 tiotropium bromide 1.25 2 puff inhalation DAILY 04/18/21 12/23/22 mcg/actuation mist for inhalation (Spiriva Respimat) lancets 28 gauge (FreeStyle #100 ea 06/24/21 12/23/22 Lancets) folic acid 1 mg tablet 1 mg PO DAILY 12/10/21 12/23/22 albuterol sulfate 90 mcg/actuation 2 puff PO QID PRN Shortness Of 02/08/22 12/23/22 aerosol inhaler Breath bisacodyl 5 mg tablet,delayed 10 mg PO BEDTIME 02/08/22 12/23/22 release Previous Rx's Medication Instructions Recorded cefpodoxime 100 mg tablet 100 mg PO BID #20 tabs 02/11/22 methenamine hippurate 1 gram tablet 1 g PO DAILY 90 days #90 tabs 09/23/22 albuterol sulfate 90 mcg/actuation 2 puff inhalation Q4-6H PRN 01/26/23 aerosol inhaler shortness of breath or wheezing #8.5 grams budesonide-formoterol HFA 160 2 puff inhalation Q12H #10.2 grams 01/26/23 mcg-4.5 mcg/actuation aerosol inhaler (Symbicort) prednisone 50 mg tablet 50 mg PO DAILY #4 tabs 01/26/23 Allergies Allergy/AdvReac Type Severity Reaction Status Date / Time aspirin Allergy Unknown Verified 02/08/22 05:45 ibuprofen AdvReac Unknown Verified 02/08/22 05:45 Review of Systems Review of Systems: Constitutional : No Weight loss, No Fever, No Chills, No Night Sweats, No Fatigue, No Malaise ENT/Mouth : No Hearing loss, No Ear Pain, No Nasal Congestion, No Sinus Pain, No Hoarseness, No sore throat, No Rhinorrhea, No Swallowing Difficulty Eyes: No Eye Pain, No Swelling, No Redness, No Foreign Body, No Discharge, No Vision Changes Cardiovascular : No Chest Pain, No SOB, No Dyspnea on Exertion, No Orthopnea, No Edema, No Palpitations Respiratory : Complaining of cough, wheezing, intermittent shortness of breath. Gastrointestinal : No Nausea, No Vomiting, No Diarrhea, No Constipation, No abdominal Pain, No Hematochezia, No Melena Genitourinary : no irregular bleeding, No Dysuria, No Urinary Frequency, No Hematuria, No Urinary Incontinence, No Urgency, No Flank Pain, No Urinary Flow Changes, No Hesitancy Musculoskeletal : No joint pain, No Myalgias, No Joint Swelling Skin : No Skin Lesions, No rash Neuro : No Weakness, No Numbness, No Paresthesias, No Loss of Consciousness, No Dizziness, No Headache Psych : No Anxiety/Panic, No Depression, No SI/HI/AH/VH, No Social Issues, Heme/Lymph: No Bruising, No Bleeding,No Lymphadenopathy Endocrine : No Polyuria, No Polydipsia, No Temperature Intolerance [facility] Past Medical History Medical History Acute hyponatremia Asthma Bladder cancer Bladder cancer Complicated urinary tract infection Diabetes Hydronephrosis Incomplete emptying of bladder due to benign prostatic hyperplasia Social History Social History Alcohol intake: never Patient Tobacco Use Status: Never used Tobacco Smoked in Last 30 Days: No Use of substances other than those prescribed or required for medical reasons: No Advance Directives: No Advance Directives Information Provided: No service: No Current occupational status: retired Physical Exam Vital Signs: Vital Signs: Last Vital Signs Temp 98.4 F 01/25/23 23:05 Pulse 82 01/26/23 00:27 Resp 18 01/26/23 00:27 BP 148/74 H 01/26/23 00:00 Pulse Ox 97 01/26/23 00:00 O2 Del Method Room Air 01/26/23 00:00 BMI result Body Mass Index 23.8 Const: Other: Appearance: Alert. Oriented X3. No acute distress. Eyes: Pupils equal, round and reactive to light. ENT: Pharynx normal. Neck: Normal inspection. Neck supple. No lymph nodes noted. No crepitus CVS: Normal heart rate and rhythm. Pulses normal. Normal S1 and S2 Respiratory: No respiratory distress. Decreased breath sounds bilaterally, mild bilateral wheezing Abdomen: Soft and nontender. No rigidity. No distention. Urostomy bag present, clear urine Skin: Skin warm and dry. Normal skin color. Normal skin turgor. Extremities: No lower extremity edema. No Lacerations. No Rash Neuro: Oriented X 3. No motor deficit. No sensory deficit. Moving all extremities. No slurred speech. CN 2 through 12 grossly intact Psych: calm, cooperative, normal affect Course Course Course Narrative: -patient's labs and imaging pending. -patient receiving some IV Solu-Medrol, magnesium and nebulization treatment. Medications Administered Generic Name Dose Route Start Last Admin Trade Name Freq PRN Reason Stop Dose Admin Magnesium Sulfate 2 gm in 50 mls @ 25 mls/hr 01/26/23 00:02 01/26/23 00:15 Magnesium Sulfate/H2o IV 01/26/23 02:01 25 mls/hr ONCE ONE Administration Discontinued Medications Generic Name Dose Route Start Last Admin Trade Name Freq PRN Reason Stop Dose Admin Albuterol Sulfate 5 mg 01/26/23 00:02 01/26/23 00:24 Albuterol Sulfate (0.083%) 2.5 Mg/3 Ml Vial.Neb INHALE 01/26/23 00:03 5 mg ONCE ONE Administration Methylprednisolone Sodium Succinate 125 mg 01/26/23 00:02 01/26/23 00:14 Methylprednisolone Sod Succ 125 Mg/2 Ml Vial IVPUSH 01/26/23 00:03 125 mg ONCE ONE Administration Medical Decision Making Medical Decision Making [facility] Narrative: -after the nebulization treatment, patient feels better, patient is moving air more, oxygen saturation 97% on room air. -patient complaining that Spiriva does not work well for him. Every time that he uses he starts coughing quite a bit -I discussed with the patient that we can try Symbicort, unclear if the trans will cover without prior authorization, we will likely have to go through his primary care physician. Lab Data [facility] Lab Attestation statement: I reviewed the patient's lab results. 01/25/23 23:55 01/25/23 23:55 Labs: Lab Results 01/25/23 01/25/23 01/25/23 Range/Units 23:55 23:55 23:55 WBC 6.3 (4.8-10.8) X10*3/uL RBC 4.04 L (4.60-5.80) X10*6/uL Hgb 12.2 L (14.0-18.0) g/dl Hct 36.6 L (42.0-52.0) % MCV 90.6 (80.0-98.0) fL MCH 30.2 (27.0-33.0) pg MCHC 33.3 (31.0-36.0) g/dl RDW 14.7 (11.0-16.0) % Plt Count 132 L (160-400) X10*3/uL MPV 11.2 (9.4-12.4) fL Immature Gran % (Auto) 0.5 H (0.0-0.4) % Neut % (Auto) 48.8 (45-73) % Lymph % (Auto) 25.9 (20-40) % Cotton % (Auto) 7.5 (2-11) % Eos % (Auto) 16.2 H (0-4) % Baso % (Auto) 1.1 (0-2) % Lymph # (Auto) 1.6 (1.2-4.9) X10*3/uL Cotton # (Auto) 0.5 (0.1-1.2) X10*3/uL Eos # (Auto) 1.0 H (0.0-0.4) X10*3/uL Baso # (Auto) 0.1 (0.0-0.2) X10*3/uL Abs Immat Gran (auto) 0.03 (0.00-0.03) X10*3/uL Absolute Neuts (auto) 3.1 (2.0-8.3) x10*3/uL Absolute Nucleated RBC 0.000 (0.0-0.012) X10*3/uL Nucleated RBC % (auto) 0.0 (0.0-0.2) /100WBC Sodium 136 (135-145) mmol/L Potassium 4.3 (3.3-5.1) mmol/L Chloride 108 (96-108) mmol/L Carbon Dioxide 19 L (22-29) mmol/L Anion Gap 13 (12-20) BUN 20 H (9-16) mg/dL Creatinine 1.43 H (0.5-1.4) mg/dL Estim Creat Clear Calc 35.0 Estimated GFR 48 Random Glucose 202 H (60-115) mg/dL Calcium 9.4 (8.4-10.2) mg/dL Influenza Type A (PCR) NEGATIVE (Negative) Influenza Type B (PCR) NEGATIVE (Negative) RSV RNA Qual (PCR) NEGATIVE (Negative) SARS-CoV-2 RNA (RT-PCR) NEGATIVE (Negative) Radiology Impression Discussion of test interpretation with radiology: I have reviewed the radiologist's reading. Radiologist Impression: FINDINGS: Normal appearance of the cardiomediastinal silhouette. Mild diffuse interstitial thickening. No focal airspace opacity, pleural effusion or pneumothorax. No acute osseous abnormalities. The visualized upper abdomen is within normal limits. XR/XR chest 1V IMPRESSION: Mild diffuse interstitial thickening suggesting small airways disease or atypical/viral infections. No focal infiltrate. Clear pleural spaces. Discharge Plan Discharge Clinical Impression: Asthma Patient Disposition: Home, Self-Care Instructions: Asthma (ED) Additional Instructions: Please follow-up with your primary care physician tomorrow. If you have any worsening or new symptoms, please return to the emergency room or call 911 Prescriptions: New budesonide-formoterol [Symbicort] 160-4.5 mcg/actuation HFA aerosol inhaler 2 puff inhalation Q12H Qty: 10.2 0RF albuterol sulfate 90 mcg/actuation HFA aerosol inhaler 2 puff inhalation Q4-6H PRN (Reason: shortness of breath or wheezing) Qty: 8.5 2RF prednisone 50 mg tablet 50 mg PO DAILY Qty: 4 0RF No Action methenamine hippurate 1 gram tablet 1 g PO DAILY 90 Days Qty: 90 1RF bisacodyl 5 mg Tablet,Delayed Release (Dr/Ec) 10 mg PO BEDTIME albuterol sulfate 90 mcg/actuation HFA aerosol inhaler 2 puff PO QID PRN (Reason: Shortness Of Breath) cefpodoxime 100 mg tablet 100 mg PO BID Qty: 20 0RF Rx Instructions: must administer with a meal/food montelukast 10 mg tablet 10 mg PO DAILY atorvastatin 10 mg tablet 10 mg PO DAILY fluticasone propion-salmeterol 113-14 mcg/actuation aerosol powdr breath activated 1 inh inhalation BID Spiriva Respimat 1.25 mcg/actuation mist 2 puff inhalation DAILY (DME) FreeStyle Lite Strips Strip See Rx Instructions Not Applicable DAILY Qty: 10 Rx Instructions: As directed amlodipine 5 mg tablet 5 mg PO DAILY metformin 500 mg tablet 500 mg PO BID (DME) lancets [FreeStyle Lancets] 28 gauge misc See Rx Instructions topical BID Qty: 100 Rx Instructions: As directed folic acid 1 mg tablet 1 mg PO DAILY
[2023-01-26 00:09] LABS: Basophils Absolute Auto 0.1 X10*3/uL (0.0-0.2); Basophils Percent Auto 1.1 % (0-2); Eosinophils Percent Auto 16.2 % (0-4); Hematocrit 36.6 % (42.0-52.0); Hemoglobin 12.2 g/dl (14.0-18.0); Imm Gran Abs Auto 0.03 X10*3/uL (0.00-0.03); Imm Gran Pct Auto 0.5 % (0.0-0.4); Lymphocytes Absolute Auto 1.6 X10*3/uL (1.2-4.9); Lymphocytes Percent Auto 25.9 % (20-40); Mean Corpuscular HGB Conc 33.3 g/dl (31.0-36.0); Mean Corpuscular Hemoglobin 30.2 pg (27.0-33.0); Mean Corpuscular Volume 90.6 fL (80.0-98.0); Mean Platelet Volume 11.2 fL (9.4-12.4); Monocytes Absolute Auto 0.5 X10*3/uL (0.1-1.2); Monocytes Percent Auto 7.5 % (2-11); Neutrophils Absolute Auto 3.1 x10*3/uL (2.0-8.3); Neutrophils Percent Auto 48.8 % (45-73); Platelet Count 132 X10*3/uL (160-400); Red Blood Count 4.04 X10*6/uL (4.60-5.80); Red Cell Distribution Width 14.7 % (11.0-16.0); White Blood Count 6.3 X10*3/uL (4.8-10.8)
[2023-01-26 00:14] LABS: Anion Gap 13 (12-20); Blood Urea Nitrogen 20 mg/dL (9-16); Calcium 9.4 mg/dL (8.4-10.2); Carbon Dioxide 19 mmol/L (22-29); Chloride 108 mmol/L (96-108); Estimated Glomerular Filt Rate 48; Glucose Random 202 mg/dL (60-115); Potassium 4.3 mmol/L (3.3-5.1); Sodium 136 mmol/L (135-145)
[2023-01-26] MEDS: methylPREDNISolone Sod Succ 125 MG/2 ML VIAL IVPUSH (00:14)
[2023-01-26] MEDS: Magnesium Sulfate/H2O 2 GM/50 ML PIGGYBACK IV (00:15)
[2023-01-26] MEDS: Albuterol Sulfate (0.083%) 2.5 MG/3 ML VIAL.NEB 5 MG INHALE (00:24)
[2023-01-26 00:27] VITALS: PULSE 82; RESP 18; O2SAT 97
[2023-01-26 00:43] LABS: Influenza A PCR NEGATIVE (Negative); Influenza B PCR NEGATIVE (Negative); Resp Syncy Virus RNA Qual PCR NEGATIVE (Negative); SARS COV2 PCR INHOUSE NEGATIVE (Negative)
== END 2023-01-26 02:09 | disposition home or self-care (01) ==
PROVIDERS: Emergency Provider Emergency Medicine; PCP Internal Medicine
DX: J45.909 Unspecified asthma, uncomplicated (principal); Z20.822 Contact with and (suspected) exposure to COVID-19; Z20.828 Contact with and (suspected) exposure to other viral communicable diseases; E11.9 Type 2 diabetes mellitus without complications; Z79.02 Long term (current) use of antithrombotics/antiplatelets; Z79.899 Other long term (current) drug therapy; Z79.84 Long term (current) use of oral hypoglycemic drugs
CPT/HCPCS: 0241U; 36415; 71045; 80048; 85025; 94640; 96365; 96366; 96375; 99284; 99285; J2930; J3475

== ENCOUNTER 2023-04-14 09:13 | Outpatient (REF) | payer OTHER, MEDICAID, SELFPAY ==
[2023-04-14 10:20] LABS: Estimated Average Glucose 128 mg/dL; Hemoglobin A1c % 6.1 % (<6.0)
[2023-04-14 11:24] LABS: Creatinine Urine 43.86 mg/dL; Microalbum/Creatinine Ratio Ur 157.3 ug/mg cr (<30)
[2023-04-14 11:57] LABS: Alanine Aminotransferase 27 U/L (0-40); Albumin Level 3.7 g/dL (3.5-5.0); Alkaline Phosphatase 148 U/L (39-117); Anion Gap 10 (12-20); Aspartate Amino Transferase 38 U/L (5-37); Bilirubin Total 0.5 mg/dL (0.0-1.0); Blood Urea Nitrogen 17 mg/dL (9-16); Calcium 9.1 mg/dL (8.4-10.2); Carbon Dioxide 21 mmol/L (22-29); Chloride 112 mmol/L (96-108); Cholesterol 133 mg/dL (<200); Estimated Glomerular Filt Rate 48; Glucose Random 101 mg/dL (60-115); HDL Cholesterol 43 mg/dL (>40); LDL Cholesterol Calculated 71 mg/dL (<100); Potassium 4.1 mmol/L (3.3-5.1); Sodium 139 mmol/L (135-145); Thyroid Stimulating Hormone 4.03 uIU/mL (0.32-4.0); Total Protein 7.2 g/dL (6.5-8.0); Triglycerides 97 mg/dL (<150)
[2023-04-14 12:13] LABS: Vitamin B12 293 pg/mL (200-900)
== END 2023-04-14 09:14 | disposition home or self-care (01) ==
LOC: HO.LAB 09:13
PROVIDERS: PCP Internal Medicine; Visit Provider Internal Medicine
DX: J45.901 Unspecified asthma with (acute) exacerbation (principal); N62 Hypertrophy of breast; R12 Heartburn; R51.9 Headache, unspecified; E11.65 Type 2 diabetes mellitus with hyperglycemia; E23.0 Hypopituitarism
CPT/HCPCS: 36415; 80053; 80061; 82043; 82570; 82607; 83036; 84443

== ENCOUNTER 2023-04-25 18:34 | Emergency (ER) | payer OTHER, MEDICAID, SELFPAY ==
[2023-04-25 19:24] VITALS: BP 176/75; PULSE 74; RESP 16; TEMP 36.9; O2SAT 100; BMI 23.8
[2023-04-25 21:54] VITALS: BP 168/72; PULSE 74; RESP 18; TEMP 36.6; O2SAT 98
--- NOTE | 2023-04-25 22:05 | ED_ITS ---
HPI - Fall General Chief Complaint: Fall Stated Complaint: fell,left hand laceration, knee pain Time Seen by Provider: 04/25/23 21:57 Source: patient Mode of arrival: ambulatory Limitations: no limitations History of Present Illness HPI Narrative: 73-year-old male who presents emergency department for evaluation of injuries from a fall. The patient states that he was walking outside when he caught his foot on a curb and fell forward landing on his knees and hands. He sustained an abrasion to left hand into his knees. He denied any head injury. He currently has no complaints. He does not know when his last tetanus shot was given. Related Data Home Medications Medication Instructions Recorded Confirmed amlodipine 5 mg tablet 5 mg PO DAILY 04/18/21 12/23/22 atorvastatin 10 mg tablet 10 mg PO DAILY 04/18/21 12/23/22 blood sugar diagnostic (FreeStyle #10 ea 04/18/21 12/23/22 Lite Strips) fluticasone 113 mcg-salmeterol 14 1 inh inhalation BID 04/18/21 12/23/22 mcg/actuation breath activated powdr metformin 500 mg tablet 500 mg PO BID 04/18/21 12/23/22 montelukast 10 mg tablet 10 mg PO DAILY 04/18/21 12/23/22 tiotropium bromide 1.25 2 puff inhalation DAILY 04/18/21 12/23/22 mcg/actuation mist for inhalation (Spiriva Respimat) lancets 28 gauge (FreeStyle #100 ea 06/24/21 12/23/22 Lancets) folic acid 1 mg tablet 1 mg PO DAILY 12/10/21 12/23/22 albuterol sulfate 90 mcg/actuation 2 puff PO QID PRN Shortness Of 02/08/22 12/23/22 aerosol inhaler Breath bisacodyl 5 mg tablet,delayed 10 mg PO BEDTIME 02/08/22 12/23/22 release Previous Rx's Medication Instructions Recorded cefpodoxime 100 mg tablet 100 mg PO BID #20 tabs 02/11/22 albuterol sulfate 90 mcg/actuation 2 puff inhalation Q4-6H PRN 01/26/23 aerosol inhaler shortness of breath or wheezing #8.5 grams budesonide-formoterol HFA 160 2 puff inhalation Q12H #10.2 grams 01/26/23 mcg-4.5 mcg/actuation aerosol inhaler (Symbicort) prednisone 50 mg tablet 50 mg PO DAILY #4 tabs 01/26/23 methenamine hippurate 1 gram tablet 1 g PO DAILY 90 days #90 tabs 03/23/23 Allergies Allergy/AdvReac Type Severity Reaction Status Date / Time aspirin Allergy Unknown Verified 02/08/22 05:45 ibuprofen AdvReac Unknown Verified 02/08/22 05:45 Review of Systems Review of Systems: Yes all other systems are reviewed and are negative [facility] Past Medical History [facility] Narrative: Social history: He denies tobacco, alcohol and drug use. Medical History Acute hyponatremia Hydronephrosis Bladder cancer Asthma Diabetes Bladder cancer Incomplete emptying of bladder due to benign prostatic hyperplasia Complicated urinary tract infection Social History Social History Alcohol intake: never Patient Tobacco Use Status: Never used Tobacco Smoked in Last 30 Days: No Use of substances other than those prescribed or required for medical reasons: No Advance Directives: No Advance Directives Information Provided: No service: No Current occupational status: retired Physical Exam Vital Signs: Vital Signs: Last Vital Signs Temp 97.8 F 04/25/23 21:54 Pulse 74 04/25/23 21:54 Resp 18 04/25/23 21:54 BP 168/72 H 04/25/23 21:54 Pulse Ox 98 04/25/23 21:54 O2 Del Method Room Air 04/25/23 21:54 BMI result Body Mass Index 23.8 Vital signs did reveal an elevated blood pressure of 168/72-has essential hypertension Exam: General: Awake, alert in no distress Head: Normocephalic, atraumatic EENT: PERRL, Lids normal, sclera normal, conjunctiva normal, nose normal , ears normal, throat without erythema or exudates Neck: Supple, no adenopathy, trachea midline and nontender Lung: breath sounds symmetric, no wheezing, rales or rhonchi Chest: symmetric movement, nontender Heart: regular rate and rhythm, normal S1, S2 no murmurs or rubs Abdomen: soft, non-tender, nondistended, normal bowel sounds Back: no vertebral tenderness, no CVAT Extremities: Patient has a superficial C-shaped laceration to his left thenar eminence, the skin is very thin and not require sutures, patient has to abrasions to his knees bilaterally, he can move all extremities some Skin: no rashes, no lesion, normal color and warmth Neuro: Awake, alert, oriented, normal speech, cranial nerves intact, moves all extremities symmetrically Psych: Pleasant, cooperative Medical Decision Making Medical Decision Making MDM Narrative: 73-year-old male who presents emergency department for evaluation of fall and injuries to his left hand and knees bilaterally. Patient does have a superficial C-shaped laceration to his left hand which does not require suture repair and 2 abrasions to his knees. His exam was otherwise unremarkable. Patient is abrasions and laceration were cleaned and dressed with bacitracin and gauze dressings. Patient is not know when his last tetanus shot was given therefore he was given a Tdap vaccination IM here in the emergency department. He was given printed and verbal instructions discharged home Differential Diagnosis Differential diagnosis includes but is not limited to laceration, abrasion, fracture, sprain, strain Prescription Management I considered prescription management with: Antibiotic (Topical) Chronic Conditions Patient?s care impacted by: Diabetes and Hypertension Discharge Plan Discharge Clinical Impression: Abrasion of knee, bilateral Fall Qualifiers: Encounter type: initial encounter Qualified Code(s): W19.XXXA - Unspecified fall, initial encounter Skin tear of left hand without complication Qualifiers: Encounter type: initial encounter Qualified Code(s): S61.412A - Laceration without foreign body of left hand, initial encounter Patient Disposition: Home, Self-Care Instructions: Abrasion (ED) Additional Instructions: Apply bacitracin twice a day for 1 week to your left hand and both knees. Watch for signs of infection which would include increased pain, increased redness, increased swelling, drainage of pus, red streaks going away from the wounds. You have an infection you should follow-up with your doctor or return to emergency department for re-evaluation. He received tetanus, diptheria and Pertussin ( Tdap) vaccinated in the emergency department. This is good for 5 years Follow-up with your doctor in 2 days. Please return to the emergency department if your symptoms get worse or if you develop any symptoms that are concerning to you. Prescriptions: No Action methenamine hippurate 1 gram tablet 1 g PO DAILY 90 Days Qty: 90 1RF bisacodyl 5 mg Tablet,Delayed Release (Dr/Ec) 10 mg PO BEDTIME albuterol sulfate 90 mcg/actuation HFA aerosol inhaler 2 puff PO QID PRN (Reason: Shortness Of Breath) cefpodoxime 100 mg tablet 100 mg PO BID Qty: 20 0RF Rx Instructions: must administer with a meal/food budesonide-formoterol [Symbicort] 160-4.5 mcg/actuation HFA aerosol inhaler 2 puff inhalation Q12H Qty: 10.2 0RF albuterol sulfate 90 mcg/actuation HFA aerosol inhaler 2 puff inhalation Q4-6H PRN (Reason: shortness of breath or wheezing) Qty: 8.5 2RF prednisone 50 mg tablet 50 mg PO DAILY Qty: 4 0RF montelukast 10 mg tablet 10 mg PO DAILY atorvastatin 10 mg tablet 10 mg PO DAILY fluticasone propion-salmeterol 113-14 mcg/actuation aerosol powdr breath activated 1 inh inhalation BID Spiriva Respimat 1.25 mcg/actuation mist 2 puff inhalation DAILY (DME) FreeStyle Lite Strips Strip See Rx Instructions Not Applicable DAILY Qty: 10 Rx Instructions: As directed amlodipine 5 mg tablet 5 mg PO DAILY metformin 500 mg tablet 500 mg PO BID (DME) lancets [FreeStyle Lancets] 28 gauge misc See Rx Instructions topical BID Qty: 100 Rx Instructions: As directed folic acid 1 mg tablet 1 mg PO DAILY
[2023-04-25] MEDS: Diphth,Pertus(ACell),Tet Adult 0.5 ML SYRINGE IM (22:24)
[2023-04-25] MEDS: Bacitracin Oint 0.9 GM PACKET 1 APPL TOPICAL (22:26)
== END 2023-04-25 22:30 | disposition home or self-care (01) ==
PROVIDERS: Emergency Provider Emergency Medicine Emergency Medical Services; PCP Internal Medicine
DX: S61.412A Laceration without foreign body of left hand, initial encounter (principal); W18.30XA Fall on same level, unspecified, initial encounter; Y93.9 Activity, unspecified; Y92.9 Unspecified place or not applicable; Z23 Encounter for immunization
CPT/HCPCS: 90471; 90715; 99284

== ENCOUNTER 2023-04-28 07:52 | Day surgery (SDC) | payer OTHER, MEDICAID, SELFPAY ==
--- NOTE | 2023-04-27 10:08 | HO.ANESPROP2 ---
Documented by User: Pricilla León NP 04/27/23 10:09 HPI - Anesthesia Eval Consult details Narrative: 73yo M for Upper Endoscopy PMFSH Active Problems Active Problems: All Active Problems (Updated 04/27/23 @ 06:35 by Celine Joiner RN) Bladder cancer (Acute) Past Medical History Medical History (Updated 04/27/23 @ 06:35 by Celine Joiner RN) HTN (hypertension) Acute hyponatremia Hydronephrosis Bladder cancer Asthma Diabetes Bladder cancer Incomplete emptying of bladder due to benign prostatic hyperplasia Complicated urinary tract infection Surgical History Surgical History (Updated 04/27/23 @ 06:37 by Celine Joiner RN) History of surgery History of ileal conduit Social History Social History Alcohol intake: never Patient Tobacco Use Status: Never used Tobacco Smoked in Last 30 Days: No Use of substances other than those prescribed or required for medical reasons: No Advance Directives: No Advance Directives Information Provided: No service: No Current occupational status: retired Meds Allergies Allergy/AdvReac Type Severity Reaction Status Date / Time aspirin Allergy Unknown Verified 02/08/22 05:45 Beta-Blockers AdvReac Unknown Unverified 04/27/23 06:34 (Beta-Adrenergic Bloc ibuprofen AdvReac Unknown Verified 02/08/22 05:45 Home Medications Medication Instructions Recorded Confirmed Last Taken Type amlodipine 5 mg tablet 5 mg PO DAILY 04/18/21 12/23/22 02/07/22 History atorvastatin 10 mg tablet 10 mg PO DAILY 04/18/21 12/23/22 02/07/22 History blood sugar diagnostic ([place] #10 ea 04/18/21 12/23/22 Unknown History Lite Strips) fluticasone 113 mcg-salmeterol 14 1 inh inhalation BID 04/18/21 12/23/22 02/07/22 History mcg/actuation breath activated powdr metformin 500 mg tablet 500 mg PO BID 04/18/21 12/23/22 02/07/22 History montelukast 10 mg tablet 10 mg PO DAILY 04/18/21 12/23/22 02/07/22 History tiotropium bromide 1.25 2 puff inhalation DAILY 04/18/21 12/23/22 Unknown History mcg/actuation mist for inhalation (Spiriva Respimat) lancets 28 gauge (FreeStyle #100 ea 06/24/21 12/23/22 Unknown History Lancets) folic acid 1 mg tablet 1 mg PO DAILY 12/10/21 12/23/22 02/07/22 History albuterol sulfate 90 mcg/actuation 2 puff PO QID PRN Shortness Of 02/08/22 12/23/22 Unknown History aerosol inhaler Breath bisacodyl 5 mg tablet,delayed 10 mg PO BEDTIME 02/08/22 12/23/22 02/07/22 History release Exam Exam Date and Time: April 27, 2023 1008 Pertinent Lab Results Pertinent Lab Results: Laboratory Tests 01/25/23 04/14/23 23:55 09:28 WBC 6.3 Hgb 12.2 L Hct 36.6 L Plt Count 132 L Sodium 139 Potassium 4.1 Chloride 112 H Carbon Dioxide 21 L BUN 17 H Creatinine 1.44 H Assessment and Plan Assessment Anesthesia Assessment: Chart Reviewed Documented by User: Piyush Huddleston MD 04/28/23 07:36 [facility] Past Medical History Medical History (Updated 04/27/23 @ 06:35 by Celine Joiner RN) HTN (hypertension) Acute hyponatremia Hydronephrosis Bladder cancer Asthma Diabetes Bladder cancer Incomplete emptying of bladder due to benign prostatic hyperplasia Complicated urinary tract infection Family History Family history of problems with anesthesia: No Surgical History Surgical History (Updated 04/27/23 @ 06:37 by Celine Joiner RN) History of surgery History of ileal conduit History of Problems with Anesthesia: No Social History Social History Alcohol intake: never Patient Tobacco Use Status: Never used Tobacco Smoked in Last 30 Days: No Use of substances other than those prescribed or required for medical reasons: No Advance Directives: No Advance Directives Information Provided: No service: No Current occupational status: retired Meds Allergies Allergy/AdvReac Type Severity Reaction Status Date / Time aspirin Allergy Unknown Verified 02/08/22 05:45 Beta-Blockers AdvReac Unknown Unverified 04/27/23 06:34 (Beta-Adrenergic Bloc ibuprofen AdvReac Unknown Verified 02/08/22 05:45 Home Medications Medication Instructions Recorded Confirmed Last Taken Type amlodipine 5 mg tablet 5 mg PO DAILY 04/18/21 12/23/22 02/07/22 History atorvastatin 10 mg tablet 10 mg PO DAILY 04/18/21 12/23/22 02/07/22 History blood sugar diagnostic (FreeStyle #10 ea 04/18/21 12/23/22 Unknown History Lite Strips) fluticasone 113 mcg-salmeterol 14 1 inh inhalation BID 04/18/21 12/23/22 02/07/22 History mcg/actuation breath activated powdr metformin 500 mg tablet 500 mg PO BID 04/18/21 12/23/22 02/07/22 History montelukast 10 mg tablet 10 mg PO DAILY 04/18/21 12/23/22 02/07/22 History tiotropium bromide 1.25 2 puff inhalation DAILY 04/18/21 12/23/22 Unknown History mcg/actuation mist for inhalation (Spiriva Respimat) lancets 28 gauge (FreeStyle #100 ea 06/24/21 12/23/22 Unknown History Lancets) folic acid 1 mg tablet 1 mg PO DAILY 12/10/21 12/23/22 02/07/22 History albuterol sulfate 90 mcg/actuation 2 puff PO QID PRN Shortness Of 02/08/22 12/23/22 Unknown History aerosol inhaler Breath bisacodyl 5 mg tablet,delayed 10 mg PO BEDTIME 02/08/22 12/23/22 02/07/22 History release Exam Airway Mallampati Class: II TM Dist: >3cm Neck ROM: Limited Heart: rrr Lungs: cta Assessment and Plan Assessment Anesthesia Assessment: Anesthesia Plan Discussed Final Anesthetic Review Family History of Problems with Anesthesia: No History of Problems with Anesthesia: No NPO: Yes ASA Class: III Final Preanesthetic Review: No Changes in Pt Med Stat, Meds/Allgs Chart Reviewed, Consent Obtained/Reviewed and Anes Risks/Benef Reviewed Patient Risk: Intermediate Procedure Risk: Intermediate Anesthetic Plan Anesthetic Plan: MAC: and Agree w/ Assess. and Plan Disposition: Standard PACU
[2023-04-28 08:25] VITALS: BP 141/71; PULSE 68; RESP 18; TEMP 36.2; O2SAT 99; BMI 23.4
[2023-04-28 08:27] LABS: Glucose, Whole Blood 163 mg/dL (60-115)
[2023-04-28] MEDS: Lactated Ringers 1,000 ML 100 ML IVCONT (09:15)
--- NOTE | 2023-04-28 09:24 | MHC.SHP ---
Pre-Procedural Eval Section A Date of Service: 04/28/23 Section B Chief Complaint: Unspecified cirrhosis of liver Details of Present Illness: see H*P no changes Relevant Family History (Specify if Yes): No Relevant Social History: None Present Medications: see Short Stay Collaborative assessment Medical History: No relevant PMH History of Previous Operations: Relevant previous surgery/procedure and date(s) Allergies: Allergies Allergy/AdvReac Type Severity Reaction Status Date / Time aspirin Allergy Unknown Verified 02/08/22 05:45 Beta-Blockers AdvReac Unknown Unverified 04/27/23 06:34 (Beta-Adrenergic Bloc ibuprofen AdvReac Unknown Verified 02/08/22 05:45 Review of Systems Sugical H&P ROS: Negative: Constitution, Cardiovascular, Respiratory, Neurological, Psychiatric, Hem-Onc, Allergic/Immunologic, Gastrointestinal, Genitourinary, Musculoskeletal, Integumentary, Endocrine and Eyes/Ears/Nose/Throat Exam Surgical H&P Exam: Normal: HEENT, Normal: Heart, Normal: Lungs, Normal: Extremities, Normal: Abdomen, Normal: Skin and Normal: Neurological Plan Diagnosis/Plan: Unchanged I have reviewed the history and physical and performed a pertinent physical examination on my patient. No changes have occurred unless specified. Time Spent With Patient Time: Total time managing care of this patient today ____ minutes.
--- NOTE | 2023-04-28 09:46 | PM.OP ---
Brief Operative Note Date of Service: 04/28/23 Pre-op diagnosis: cirrhosis Post-op diagnosis: same Surgeon: Joe Burnett Anesthesia: MAC Was an Parachute Repairer used for this Procedure?: No Estimated blood loss (mL): 0 Pathology: none sent Condition: stable
[2023-04-28 09:47] VITALS: BP 106/54; PULSE 74; RESP 16; TEMP 36.3; O2SAT 99
[2023-04-28 10:02] VITALS: BP 107/60; PULSE 71; RESP 14; O2SAT 98
[2023-04-28 10:13] VITALS: BP 128/69; PULSE 75; RESP 16; TEMP 36.3; O2SAT 100
--- NOTE | 2023-04-28 10:31 | OP_ITS ---
DATE OF SERVICE: 04/28/2023 SURGEON: Joe Burnett MD INDICATIONS: Liver cirrhosis. PREOPERATIVE DIAGNOSIS: POSTOPERATIVE DIAGNOSIS: PROCEDURE PERFORMED: Upper endoscopy. ESTIMATED BLOOD LOSS: COMPLICATIONS: ANESTHESIA: Monitored anesthesia care. ASSISTANTS: SPECIMENS: DESCRIPTION OF PROCEDURE: A history and physical was performed. The risks and benefits of the procedure were explained to the patient. Informed consent was obtained. The patient was placed in the left lateral decubitus position. The Olympus video gastroscope was introduced into the esophagus, stomach, and duodenum. Examination was performed. The scope was removed. He tolerated the procedure well and was returned to the recovery area in stable condition. FINDINGS: Esophagus: The esophagus showed 2 chains of grade 1 varices extending from the EG junction at 37 cm to about 28 cm. There were no stigmata of recent hemorrhage. Stomach: Stomach showed early changes of portal hypertensive gastropathy. No ulcer was identified. Duodenum: The bulb and second portion were normal. IMPRESSION: 1. Esophageal varices. 2. Portal hypertensive gastropathy. RECOMMENDATION: Follow up office visit in 6 to 12 months. MD PREETI Meyers/GARO / [id number]
== END 2023-04-28 11:08 | disposition home or self-care (01) ==
PROVIDERS: PCP Internal Medicine; Visit Provider Internal Medicine Gastroenterology
PROC: 0DJ08ZZ Inspection of Upper Intestinal Tract, Via Natural or Artificial Opening Endoscopic (ICD-10-PCS; CPT 43235; principal; 2023-04-28 09:10)
DX: K74.60 Unspecified cirrhosis of liver (principal); I85.00 Esophageal varices without bleeding; K76.6 Portal hypertension; K31.89 Other diseases of stomach and duodenum; K76.0 Fatty (change of) liver, not elsewhere classified; K21.9 Gastro-esophageal reflux disease without esophagitis; I10 Essential (primary) hypertension; C67.9 Malignant neoplasm of bladder, unspecified; Z90.6 Acquired absence of other parts of urinary tract; J45.909 Unspecified asthma, uncomplicated; E11.9 Type 2 diabetes mellitus without complications; Z79.84 Long term (current) use of oral hypoglycemic drugs; Z79.51 Long term (current) use of inhaled steroids; Z79.899 Other long term (current) drug therapy; Z88.8 Allergy status to other drugs, medicaments and biological substances
CPT/HCPCS: 43235; 82947

== ENCOUNTER 2023-05-11 09:52 | Outpatient (REF) | payer OTHER, SELFPAY ==
[2023-05-11 10:10] LABS: MANUAL DIFF FLAG NO
[2023-05-11 10:43] LABS: Basophils Absolute Auto 0.1 X10*3/uL (0.0-0.2); Basophils Percent Auto 1.2 % (0-2); Eosinophils Absolute Auto 0.9 X10*3/uL (0.0-0.4); Eosinophils Percent Auto 12.9 % (0-4); Hemoglobin 11.2 g/dl (14.0-18.0); Imm Gran Abs Auto 0.03 X10*3/uL (0.00-0.03); Imm Gran Pct Auto 0.4 % (0.0-0.4); Lymphocytes Absolute Auto 1.8 X10*3/uL (1.2-4.9); Lymphocytes Percent Auto 25.9 % (20-40); Mean Corpuscular Hemoglobin 29.8 pg (27.0-33.0); Mean Corpuscular Volume 93.1 fL (80.0-98.0); Mean Platelet Volume 11.8 fL (9.4-12.4); Monocytes Absolute Auto 0.4 X10*3/uL (0.1-1.2); Monocytes Percent Auto 6.5 % (2-11); Neutrophils Absolute Auto 3.6 x10*3/uL (2.0-8.3); Neutrophils Percent Auto 53.1 % (45-73); Platelet Count 151 X10*3/uL (160-400); Red Blood Count 3.76 X10*6/uL (4.60-5.80); Red Cell Distribution Width 14.6 % (11.0-16.0); White Blood Count 6.8 X10*3/uL (4.8-10.8)
[2023-05-11 11:23] LABS: Alanine Aminotransferase 25 U/L (0-40); Albumin Level 3.9 g/dL (3.5-5.0); Alkaline Phosphatase 167 U/L (39-117); Anion Gap 12 (12-20); Aspartate Amino Transferase 35 U/L (5-37); Bilirubin Total 0.5 mg/dL (0.0-1.0); Blood Urea Nitrogen 23 mg/dL (9-16); Calcium 9.1 mg/dL (8.4-10.2); Carbon Dioxide 19 mmol/L (22-29); Chloride 111 mmol/L (96-108); Estimated Glomerular Filt Rate 54; Glucose Random 101 mg/dL (60-115); Potassium 4.2 mmol/L (3.3-5.1); Sodium 138 mmol/L (135-145); Total Protein 7.8 g/dL (6.5-8.0)
[2023-05-11 11:58] LABS: Folate 16.6 ng/mL (> or = 4.0)
== END 2023-05-11 09:53 | disposition home or self-care (01) ==
LOC: HO.LAB 09:52
PROVIDERS: PCP Internal Medicine; Visit Provider Internal Medicine Medical Oncology
DX: I10 Essential (primary) hypertension (principal); D64.9 Anemia, unspecified; E78.00 Pure hypercholesterolemia, unspecified; E03.9 Hypothyroidism, unspecified; E78.2 Mixed hyperlipidemia
CPT/HCPCS: 36415; 80053; 82746; 85025

== ENCOUNTER 2023-05-12 10:18 | Outpatient (REF) | payer OTHER, MEDICAID, SELFPAY ==
[2023-05-12] MEDS: iohexoL 350 MG/ML 100 ML INFUS..BTL IV (11:17)
== END 2023-05-12 10:19 | disposition home or self-care (01) ==
LOC: HO.CT 10:18
PROVIDERS: PCP Internal Medicine; Visit Provider Urology
DX: C67.9 Malignant neoplasm of bladder, unspecified (principal)
CPT/HCPCS: 74178; Q9967

== ENCOUNTER 2023-05-15 13:18 | Outpatient (AMB) | payer OTHER, MEDICAID, SELFPAY ==
--- NOTE | 2023-05-15 13:32 | MHC.OFFVIS ---
Intake Intake Visit Reasons: CT Uro/Bladder Cancer(05/12) Intake Note: Patient is present for Follow Up, CT Uro/Bladder Cancer: Urology Med: none Antibiotic Allergy: None Blood Thinner: none Volleyball Assembler Required: No Accompanied by: Self / Same As Patient Allergies aspirin Allergy (Verified 05/15/23 13:33) Unknown Beta-Blockers (Beta-Adrenergic Bloc Adverse Reaction (Verified 05/15/23 13:33) Unknown ibuprofen Adverse Reaction (Verified 05/15/23 13:33) Unknown HPI HPI Comments History of Present Illness Details Allen is a very pleasant [place] male. He is a patient of Dr Jimenez. He is seen for the following urologic conditions - invasive bladder cancer - recurring UTI Here for invasive bladder cancer surveillance Creatinine 1.3 Remains on methenamine for suppression Here for surveillance imaging HbA1c 8.4 down to 6.1 Imaging with right mild hydro Low folate consistent with ileal diversion and is on supplementation Had been placed on Macrobid for suppression in [place] Ileostomy management - Is having difficulty with stoma supplies. Would like to switch from 180. Invasive bladder cancer [id number] cysto-prostatectomy with adjuvant chemotherapy May 2020 Had been diagnosed with BPH. Went for treatment in [facility]. Prostate resection was performed. Pathology showed invasive high-grade bladder cancer. Subsequently he underwent cysto-prostatectomy May 2020. Pathology [id number] Adjuvant chemotherapy completed Follow-up staging imaging with PET CT negative October 2020 Well-maintained stoma Occasional UTI Imaging - 03/30 CT moderate right hydronephrosis but no timoteo recurrence - 10/01 CT from [place] with mild right hydronephrosis, question of prior pyelonephritis on left kidney - 11/29 CT scan mild right hydronephrosis, no timoteo recurrence, liver scarring - 12/30 CT scan continue mild right hydronephrosis, no timoteo recurrence, liver scarring consistent with cirrhosis - 05/02 CT scan continue mild right hydronephrosis, some scarring on right kidney, no timoteo recurrence, liver scarring consistent with cirrhosis Laboratories - 03/30 Cr 1.03, 11/29 1.5 Plan for repeat imaging every 6 months for 5 years [facility] Medical History HTN (hypertension) Acute hyponatremia Hydronephrosis Bladder cancer Asthma Diabetes Bladder cancer Incomplete emptying of bladder due to benign prostatic hyperplasia Complicated urinary tract infection Surgical History History of surgery History of ileal conduit Social History Are you a primary wound care coordinator to a significant other at home: No Do you presently have visiting nurse or other home services: No Alcohol intake: never Patient Tobacco Use Status: Never used Tobacco service: No Current occupational status: retired Review of Systems Const Denies chills and Denies fever(s) Card Reports no additional complaints and Denies syncope Resp Denies cough GI Denies abdominal pain and Denies heartburn Reports as per HPI and Denies change in libido Neuro Denies syncope Psych Denies change in libido Endo Denies change in libido Physical Exam Const General: cooperative, healthy appearing, comfortable and no acute distress Orientation/consciousness: patient oriented x3 HEENT Face and sinus: Yes normal facial exam Mouth: moist mucous membranes Neck Neck: Yes normal visual inspection, Yes full ROM and Yes trachea midline Chest Chest palpation & inspection: normal inspection of the chest Resp Effort & Inspection: normal respiratory effort, able to speak in complete sentences and no respiratory distress GI Inspection: Yes normal to inspection Back/Spine/Pelvis Cervical Spine: normal cervical lordosis Thoracic/Lumbar Spine: thoracic and lumbar spine normal to inspection Skin General skin exam: no rashes or lesions noted Neuro General: patient oriented x3, gait normal, tone normal and moves all extremities Extrem General: Yes normal to inspection and Yes capillary refill normal Assessment & Plan Assessment & Plan (1) Bladder cancer: Code(s): C67.9 - Malignant neoplasm of bladder, unspecified Qualifiers: Bladder location: unspecified site Qualified Code(s): C67.9 - Malignant neoplasm of bladder, unspecified Plan Continue surveillance Orders: Orders Basic Metabolic Panel 6 Months C67.9 - Malignant neoplasm of bladder, unspecified Vitamin B12 and Folate 6 Months C67.9 - Malignant neoplasm of bladder, unspecified Patient Instructions: Imaging studies, laboratory and physical exam results were discussed and reviewed in detail. No major barriers to patient understanding were identified. An opportunity to ask questions regarding the treatment plan was provided. All questions were answered. The patient expressed understanding and agreement with the above treatment plan. The patient is aware they should contact our office by phone for worsening of their current condition or the appearance of new urologic symptoms. Compliance is encouraged with any medications and followup testing that is ordered. It is a privilege to participate in the urologic care of your patient. If you have any questions or concerns regarding treatment for the above conditions, or other urologic issues, please do not hesitate to contact me. The office telephone contact is [phone]. This note is constructed using voice recognition software. While every effort has been made to ensure accuracy cold working inspector errors may have been included. Yours sincerely, Dr Mauro Narayan MD, [facility] - Urology Providers of Expert, Compassionate Care for the Genitourinary System Coding Level of Care Code Est Pt Level 3 (55860) Diagnoses Malignant neoplasm of urinary bladder, unspecified site C67.9 Bladder location: unspecified site
== END 2023-05-15 14:39 | disposition home or self-care (01) ==
PROVIDERS: PCP Internal Medicine; Visit Provider Urology
DX: C67.9 Malignant neoplasm of bladder, unspecified (principal)
CPT/HCPCS: 99213

== ENCOUNTER → 2023-05-15 13:18 | Outpatient (BNVA) | payer OTHER, MEDICAID, SELFPAY | PROVIDERS: PCP Internal Medicine; Visit Provider Urology | DX: C67.9 Malignant neoplasm of bladder, unspecified (principal) | CPT/HCPCS: 99212 ==

== ENCOUNTER 2023-12-14 13:10 | Outpatient (REF) | payer MEDICARE, MEDICAID, SELFPAY ==
[2023-12-17 03:58] LABS: TS Negative Control Passed; TS Panel A 0; TS Panel B 1; TS Positive Control Passed; TSpotTB Negative (Negative)
== END 2023-12-14 13:11 | disposition home or self-care (01) ==
LOC: HO.LAB 13:10
PROVIDERS: Absent Provider Urology; PCP Internal Medicine; Visit Provider Internal Medicine
DX: Z11.1 Encounter for screening for respiratory tuberculosis (principal)
CPT/HCPCS: 36415; 86481

== ENCOUNTER 2023-12-18 10:18 | Outpatient (REF) | payer MEDICARE, MEDICAID, SELFPAY ==
[2023-12-18 10:51] LABS: MANUAL DIFF FLAG NO
[2023-12-18 11:51] LABS: Basophils Absolute Auto 0.1 X10*3/uL (0.0-0.2); Basophils Percent Auto 0.6 % (0-2); Eosinophils Absolute Auto 0.3 X10*3/uL (0.0-0.4); Eosinophils Percent Auto 3.7 % (0-4); Hematocrit 31.2 % (42.0-52.0); Hemoglobin 10.7 g/dl (14.0-18.0); Imm Gran Pct Auto 1.2 % (0.0-0.4); Lymphocytes Absolute Auto 1.2 X10*3/uL (1.2-4.9); Lymphocytes Percent Auto 13.9 % (20-40); Mean Corpuscular HGB Conc 34.3 g/dl (31.0-36.0); Mean Corpuscular Volume 96.3 fL (80.0-98.0); Monocytes Absolute Auto 0.6 X10*3/uL (0.1-1.2); Monocytes Percent Auto 7.3 % (2-11); Neutrophils Absolute Auto 6.1 x10*3/uL (2.0-8.3); Neutrophils Percent Auto 73.3 % (45-73); Platelet Count 224 X10*3/uL (160-400); Red Blood Count 3.24 X10*6/uL (4.60-5.80); Red Cell Distribution Width 12.6 % (11.0-16.0); White Blood Count 8.3 X10*3/uL (4.8-10.8)
[2023-12-18 12:20] LABS: Estimated Average Glucose 131 mg/dL; Hemoglobin A1C 123.3088 umol/L; Hemoglobin A1c % 6.2 % (<6.0)
[2023-12-18 12:56] LABS: Alanine Aminotransferase 28 U/L (0-40); Albumin Level 3.5 g/dL (3.5-5.0); Alkaline Phosphatase 277 U/L (39-117); Anion Gap 14 (12-20); Aspartate Amino Transferase 42 U/L (5-37); Bilirubin Total 0.8 mg/dL (0.0-1.0); Blood Urea Nitrogen 14 mg/dL (9-16); Calcium 9.4 mg/dL (8.4-10.2); Carbon Dioxide 15 mmol/L (22-29); Chloride 106 mmol/L (96-108); Estimated Glomerular Filt Rate > 60; Glucose Random 162 mg/dL (60-115); Potassium 4.1 mmol/L (3.3-5.1); Sodium 131 mmol/L (135-145); Thyroid Stimulating Hormone 1.88 uIU/mL (0.32-4.0); Total Protein 8.6 g/dL (6.5-8.0)
[2023-12-18 12:57] LABS: Prostate Specific Antigen < 0.10 ng/mL (<0.05-4.0)
[2023-12-18 13:07] LABS: Alanine Aminotransferase 29 U/L (0-40); Albumin Level 3.6 g/dL (3.5-5.0); Alkaline Phosphatase 282 U/L (39-117); Anion Gap 14 (12-20); Aspartate Amino Transferase 43 U/L (5-37); Bilirubin Total 0.8 mg/dL (0.0-1.0); Blood Urea Nitrogen 14 mg/dL (9-16); Calcium 9.5 mg/dL (8.4-10.2); Carbon Dioxide 16 mmol/L (22-29); Chloride 106 mmol/L (96-108); Cholesterol 138 mg/dL (<200); Estimated Glomerular Filt Rate 58; Glucose Fasting 164 mg/dL (60-99); HDL Cholesterol 30 mg/dL (>40); LDL Cholesterol Calculated 90 mg/dL (<100); Potassium 4.1 mmol/L (3.3-5.1); Sodium 132 mmol/L (135-145); Total Protein 8.7 g/dL (6.5-8.0); Triglycerides 92 mg/dL (<150)
[2023-12-18 13:08] LABS: Alanine Aminotransferase 28 U/L (0-40); Albumin Level 3.5 g/dL (3.5-5.0); Alkaline Phosphatase 277 U/L (39-117); Aspartate Amino Transferase 43 U/L (5-37); Bilirubin Direct 0.4 mg/dL (0.0-0.5); Bilirubin Total 0.8 mg/dL (0.0-1.0); Blood Urea Nitrogen 14 mg/dL (9-16); Estimated Glomerular Filt Rate 59; Total Protein 8.5 g/dL (6.5-8.0)
[2023-12-18 13:26] LABS: Creatinine Urine 75.67 mg/dL; Microalbum/Creatinine Ratio Ur 199.5 ug/mg cr (<30)
[2023-12-21 09:04] LABS: HBS Num1 0.67 mIU/mL (0-7.99); HBc Num1 0.23 S/CO (0.00-0.79); Hepatitis A Antibody IgM 0.38 Index (0-0.79); Hepatitis B Core Antibody Nonreactive (Nonreactive); Hepatitis B Surface Antigen Negative (Negative); ~HepC Num1 0.18 S/CO (0.00-0.79); ~Hepatitis A Antibody IgM Nonreactive (Nonreactive); ~Hepatitis B Surface Antibody NONREACTIVE (Nonreactive); ~Hepatitis C Antibody Nonreactive (Nonreactive)
[2023-12-21 13:17] LABS: Alpha Fetoprotein 4.1 ng/mL (<6.1)
== END 2023-12-18 10:19 | disposition home or self-care (01) ==
LOC: HO.LAB 10:18
PROVIDERS: Absent Provider Internal Medicine Medical Oncology; PCP Internal Medicine; Referring Provider Internal Medicine Gastroenterology; Visit Provider Internal Medicine
DX: E78.00 Pure hypercholesterolemia, unspecified (principal); E11.22 Type 2 diabetes mellitus with diabetic chronic kidney disease; I12.9 Hypertensive chronic kidney disease with stage 1 through stage 4 chronic kidney disease, or unspecified chronic kidney disease; N18.9 Chronic kidney disease, unspecified; J45.909 Unspecified asthma, uncomplicated; R93.2 Abnormal findings on diagnostic imaging of liver and biliary tract; D64.9 Anemia, unspecified; N40.1 Benign prostatic hyperplasia with lower urinary tract symptoms; Z12.5 Encounter for screening for malignant neoplasm of prostate
CPT/HCPCS: 36415; 80053; 80061; 80076; 82043; 82105; 82248; 82565; 82570; 83036; 84153; 84443; 84520; 85025; 86704; 86706; 86709; 86803; 87340

== ENCOUNTER 2023-12-21 21:05 | Emergency (ER) | payer MEDICARE, MEDICAID, SELFPAY ==
[2023-12-21 21:39] VITALS: BP 161/70; PULSE 84; RESP 20; TEMP 37.2; O2SAT 97; BMI 21.9
--- NOTE | 2023-12-22 01:36 | PC.NURSE ---
urine sample collected from pt urostomy and sent to lab.
[2023-12-22 01:41] LABS: Appearance Urine Cloudy; Color Urine Yellow; Glucose Urine UA Negative (Negative); Leukocyte Esterase Urine Large (3+) (Negative); Nitrite Urine Negative (Negative); Specific Gravity - Urine <= 1.005 (1.005-1.025); UMIC TRIGGER UACC YES; Urine Blood Small (1+) (Negative); Urine Ketones Negative (Negative); Urine Protein 30 (1+) mg/dL (Neg-Trace)
--- NOTE | 2023-12-22 01:41 | ED.GENADULT ---
HPI - General Adult General Chief complaint: General Medical Stated complaint: ?uti Time Seen by Provider: 12/22/23 01:03 Source: patient, family and old records reviewed Mode of arrival: ambulatory Limitations: no limitations History of Present Illness HPI narrative: 73 yo male with PMH of HTN, HLD, asthma, DM, E. coli and klebsiella UTI, urostomy s/p bladder cancer and removal of bladder presents with no symptoms other than noting thick white discharge in urostomy bag which is usually a sign of infection for him. No n/v/d no fevers, back pain. MD complaint: concern for UTI Onset (ago): hour(s) (5pm) Location: pelvis Radiation: non-radiation Severity: mild Pain Consistency: constant Relieving factors: none Exacerbating factors: none Associated symptoms: other (white discharge in urostomy) Treatments prior to arrival: none Related Data Home Medications ?Medication ?Instructions ?Recorded ?Confirmed amlodipine 5 mg tablet 5 mg PO DAILY 04/18/21 12/23/22 atorvastatin 10 mg tablet 10 mg PO DAILY 04/18/21 12/23/22 blood sugar diagnostic (Markelyle #10 ea 04/18/21 12/23/22 Lite Strips) fluticasone 113 mcg-salmeterol 14 1 inh inhalation BID 04/18/21 12/23/22 mcg/actuation breath activated powdr metformin 500 mg tablet 500 mg PO BID 04/18/21 12/23/22 montelukast 10 mg tablet 10 mg PO DAILY 04/18/21 12/23/22 tiotropium bromide 1.25 2 puff inhalation DAILY 04/18/21 12/23/22 mcg/actuation mist for inhalation (Spiriva Respimat) lancets 28 gauge (FreeStyle #100 ea 06/24/21 12/23/22 Lancets) folic acid 1 mg tablet 1 mg PO DAILY 12/10/21 12/23/22 albuterol sulfate 90 mcg/actuation 2 puff PO QID PRN Shortness Of 02/08/22 12/23/22 aerosol inhaler Breath bisacodyl 5 mg tablet,delayed 10 mg PO BEDTIME 02/08/22 12/23/22 release omeprazole 20 mg capsule,delayed 20 mg PO DAILY 05/15/23 release Previous Rx's ?Medication ?Instructions ?Recorded cefpodoxime 100 mg tablet 100 mg PO BID #20 tabs 02/11/22 albuterol sulfate 90 mcg/actuation 2 puff inhalation Q4-6H PRN 01/26/23 aerosol inhaler shortness of breath or wheezing #8.5 grams budesonide-formoterol HFA 160 2 puff inhalation Q12H #10.2 grams 01/26/23 mcg-4.5 mcg/actuation aerosol inhaler (Symbicort) prednisone 50 mg tablet 50 mg PO DAILY #4 tabs 01/26/23 methenamine hippurate 1 gram tablet 1 g PO DAILY 90 days #90 tabs 03/23/23 cefuroxime axetil 500 mg tablet 500 mg PO BID 10 days #19 tabs 12/22/23 Allergies Allergy/AdvReac Type Severity Reaction Status Date / Time aspirin Allergy Unknown Verified 12/21/23 21:41 Beta-Blockers AdvReac Unknown Verified 12/21/23 21:41 (Beta-Adrenergic Bloc ibuprofen AdvReac Unknown Verified 12/21/23 21:41 Review of Systems Review of Systems: Constitutional : No Fever, No Chills, No Fatigue ENT/Mouth : No sore throat, No Rhinorrhea Eyes: No Eye Pain, No Swelling, No Redness Cardiovascular : No Chest Pain, No SOB, No Dyspnea on Exertion Respiratory : No Cough, No Sputum Gastrointestinal : No Nausea, No Vomiting, No Diarrhea, No abdominal Pain Genitourinary : No Dysuria, No Urinary Frequency, No Hematuria, Musculoskeletal : No joint pain, No Myalgias, No Joint Swelling Skin : No Skin Lesions, No rash Neuro : No Weakness, No Numbness, No Dizziness, no Headache Psych : No Anxiety/Panic, No Depression Heme/Lymph: No Bruising, No Bleeding,No Lymphadenopathy Endocrine : No Polyuria, No Polydipsia All other systems reviewed and are negative PMFSH Past Medical History Attestation statement: The following information was validated with the patient. Source: old records reviewed Medical History HTN (hypertension) Acute hyponatremia Hydronephrosis Bladder cancer Asthma Diabetes Bladder cancer Incomplete emptying of bladder due to benign prostatic hyperplasia Complicated urinary tract infection Surgical History History of surgery History of ileal conduit Social History Social History Are you a primary lawn care worker to a significant other at home: No Do you presently have visiting nurse or other home services: No Alcohol intake: never Patient Tobacco Use Status: Never used Tobacco Advance Directives: No Advance Directives Information Provided: Yes Do you have a plan to hurt others: No Plan service: No Current occupational status: retired Physical Exam ED Vital Signs: Vital Signs - 24 hr 12/21/23 21:39 Temperature 99 F Pulse Rate 84 Respiratory Rate 20 Blood Pressure 161/70 H Pulse Oximetry 97 Oxygen Delivery Method Room Air BMI result Body Mass Index 21.9 Appearance: Alert. Oriented X3. No acute distress. Eyes: Pupils equal, round and reactive to light. ENT: Pharynx normal. Neck: Normal inspection. Neck supple. CVS: Normal heart rate and rhythm. Pulses normal. Respiratory: No respiratory distress. Breath sounds normal. Abdomen: Soft and nontender. no flank pain : white discharge noted in urostomy bag no blood Skin: Skin warm and dry. Normal skin color. Normal skin turgor. Extremities: No lower extremity edema. Neuro: Oriented X 3. No motor deficit. No sensory deficit. Medical Decision Making Medical Decision Making MDM Narrative: 73 yo male with PMH of HTN, HLD, asthma, DM, E. coli and klebsiella UTI, urostomy s/p bladder cancer and removal of bladder here with c/o seeing white in urostomy bag but no systemic symptoms not toxic, VS stable at this time based off prior micro I am going to start on ceftin and given him strict precautions to return. He has no systemic symptoms or fevers can hold off basic labs. Differential Diagnosis Differential Diagnoses: The differential diagnosis associated with the presentation includes acute UTI Admission/Observation Consideration of admission/observation: Escalation of care including admission/observation considered no systemic symptoms stable VS can trial oral abx Lab Data [facility] Lab Attestation statement: I reviewed the patient's lab results. Independent Historian Clinical information obtained from an independent historian. History obtained from or confirmed by: Spouse External Record Review External record reviewed: Prior outpatient labs (prior urine cultures) Prescription Management I considered prescription management with: Antibiotic Discharge Plan Discharge Clinical Impression: Acute UTI Patient Disposition: Home, Self-Care Instructions: Urinary Tract Infection in Men (ED) Additional Instructions: return for fevers, vomiting, confusion, pain or any other concerns based off prior cultures this antibiotic should cover any infection take a probiotic while on antibiotic to prevent diarrhea Prescriptions: New cefuroxime axetil 500 mg tablet 500 mg PO BID 10 Days Qty: 19 0RF No Action methenamine hippurate 1 gram tablet 1 g PO DAILY 90 Days Qty: 90 1RF bisacodyl 5 mg Tablet,Delayed Release (Dr/Ec) 10 mg PO BEDTIME albuterol sulfate 90 mcg/actuation HFA aerosol inhaler 2 puff PO QID PRN (Reason: Shortness Of Breath) cefpodoxime 100 mg tablet 100 mg PO BID Qty: 20 0RF Rx Instructions: must administer with a meal/food budesonide-formoterol [Symbicort] 160-4.5 mcg/actuation HFA aerosol inhaler 2 puff inhalation Q12H Qty: 10.2 0RF albuterol sulfate 90 mcg/actuation HFA aerosol inhaler 2 puff inhalation Q4-6H PRN (Reason: shortness of breath or wheezing) Qty: 8.5 2RF prednisone 50 mg tablet 50 mg PO DAILY Qty: 4 0RF montelukast 10 mg tablet 10 mg PO DAILY atorvastatin 10 mg tablet 10 mg PO DAILY fluticasone propion-salmeterol 113-14 mcg/actuation aerosol powdr breath activated 1 inh inhalation BID Spiriva Respimat 1.25 mcg/actuation mist 2 puff inhalation DAILY (DME) FreeStyle Lite Strips Strip See Rx Instructions Not Applicable DAILY Qty: 10 Rx Instructions: As directed amlodipine 5 mg tablet 5 mg PO DAILY metformin 500 mg tablet 500 mg PO BID (DME) lancets [FreeStyle Lancets] 28 gauge misc See Rx Instructions topical BID Qty: 100 Rx Instructions: As directed folic acid 1 mg tablet 1 mg PO DAILY omeprazole 20 mg capsule,delayed release(DR/EC) 20 mg PO DAILY Print Language: Macedonian
[2023-12-22 01:50] LABS: Bacteria Urine 4+ (None Seen); RBC Urine 0-2 /HPF (0-2); Squamous Epithelial Cell Urine 0-2 /HPF (0-2); UACC Culture Trigger YES; WBC Urine >50 /HPF (0-5)
[2023-12-22] MEDS: cefuroxime axetiL 500 MG TABLET PO (02:07)
[2023-12-22 02:36] VITALS: BP 169/83; PULSE 78; RESP 17; TEMP 36.6; O2SAT 95
[2023-12-22 02:37] VITALS: BP 169/83; PULSE 78; RESP 17; TEMP 36.6; O2SAT 95
== END 2023-12-22 02:37 | disposition home or self-care (01) ==
PROVIDERS: Emergency Provider Emergency Medicine; PCP Internal Medicine
DX: N39.0 Urinary tract infection, site not specified (principal); Z96.0 Presence of urogenital implants; I10 Essential (primary) hypertension; E11.9 Type 2 diabetes mellitus without complications; E78.5 Hyperlipidemia, unspecified; Z85.51 Personal history of malignant neoplasm of bladder
CPT/HCPCS: 81001; 87086; 99283; 99284

== ENCOUNTER 2023-12-23 13:38 | Outpatient (REF) | payer MEDICARE, SELFPAY ==
--- NOTE | ~2023-12-23 | XR_ITS ---
EXAMINATION: Bilateral knee series CLINICAL INFORMATION: Bilateral knee pain COMPARISON: None. TECHNIQUE: 4 views of each knee FINDINGS: Right knee: The bones joints and soft tissues are normal without degenerative change or fracture. No effusion. Left knee: Small marginal osteophytes but patellofemoral compartment without joint space narrowing indicative of mild osteoarthritis. The medial lateral compartments are normal. There is no effusion. XR/XR knee LT 4V IMPRESSION: RIGHT KNEE: Normal. LEFT KNEE: Mild osteoarthritis.
--- NOTE | ~2023-12-23 | XR_ITS ---
EXAMINATION: Bilateral knee series CLINICAL INFORMATION: Bilateral knee pain COMPARISON: None. TECHNIQUE: 4 views of each knee FINDINGS: Right knee: The bones joints and soft tissues are normal without degenerative change or fracture. No effusion. Left knee: Small marginal osteophytes but patellofemoral compartment without joint space narrowing indicative of mild osteoarthritis. The medial lateral compartments are normal. There is no effusion. XR/XR knee RT 4V IMPRESSION: RIGHT KNEE: Normal. LEFT KNEE: Mild osteoarthritis.
== END 2023-12-23 13:39 | disposition home or self-care (01) ==
LOC: HO.XRAY 13:38
PROVIDERS: PCP Internal Medicine; Visit Provider Internal Medicine
DX: M17.0 Bilateral primary osteoarthritis of knee (principal)
CPT/HCPCS: 73564

== ENCOUNTER 2024-01-05 13:32 | Outpatient (AMB) | payer MEDICARE, SELFPAY ==
--- NOTE | 2024-01-05 13:42 | MHC.OFFVIS ---
Intake Visit Reasons: 6m/PSA(set) Allergies aspirin Allergy (Verified 01/05/24 13:45) Unknown Beta-Blockers (Beta-Adrenergic Bloc Adverse Reaction (Verified 01/05/24 13:45) Unknown ibuprofen Adverse Reaction (Verified 01/05/24 13:45) Unknown Medication List - Last Reconciled 01/05/24 by Mauro Narayan MD albuterol sulfate 90 mcg/actuation 2 puffs PO QID PRN albuterol sulfate 90 mcg/actuation 2 puffs inhalation Q4-6H PRN amlodipine 5 mg PO DAILY atorvastatin 10 mg PO DAILY bisacodyl 10 mg PO BEDTIME blood sugar diagnostic (FreeStyle Lite Strips) As directed budesonide-formoterol 160-4.5 mcg/actuation (Symbicort) 2 puffs inhalation Q12H cefpodoxime 100 mg PO BID cefuroxime axetil 500 mg PO BID 10 days fluticasone propion-salmeterol 113-14 mcg/actuation 1 inh inhalation BID folic acid 1 mg PO DAILY lancets (FreeStyle Lancets) As directed metformin 500 mg PO BID methenamine hippurate 1 g PO DAILY 90 days montelukast 10 mg PO DAILY omeprazole 20 mg PO DAILY prednisone 50 mg PO DAILY tiotropium bromide 1.25 mcg/actuation (Spiriva Respimat) 2 puffs inhalation DAILY HPI Comments Details: Allen is a very pleasant [place] male. He is a patient of Dr Jimenez. He is seen for the following urologic conditions - invasive bladder cancer - recurring UTI Here for invasive bladder cancer surveillance Creatinine 1.2 Restart vitamin-C and methenamine for colonized urine Had infection Here for surveillance imaging HbA1c 8.4 down to 6.1 Imaging with right mild hydro Low folate consistent with ileal diversion and is on supplementation Had been placed on Macrobid for suppression in [place] Ileostomy management - Wafer - Securi-T [place] [id number] - Bag 45mm [id number] - Sponges 4x4 [facility] [id number] - Stoma Paste - Povidine Solution IP 10% Invasive bladder cancer T4N1M0 cysto-prostatectomy with adjuvant chemotherapy May 2020 Had been diagnosed with BPH. Went for treatment in [place]. Prostate resection was performed. Pathology showed invasive high-grade bladder cancer. Subsequently he underwent cysto-prostatectomy May 2020. Pathology T4N2M0 Adjuvant chemotherapy completed Follow-up staging imaging with PET CT negative October 2020 Well-maintained stoma Occasional UTI Imaging - 03/30 CT moderate right hydronephrosis but no timoteo recurrence - 10/01 CT from [place] with mild right hydronephrosis, question of prior pyelonephritis on left kidney - 11/29 CT scan mild right hydronephrosis, no timoteo recurrence, liver scarring - 12/30 CT scan continue mild right hydronephrosis, no timoteo recurrence, liver scarring consistent with cirrhosis - 05/02 CT scan continue mild right hydronephrosis, some scarring on right kidney, no timoteo recurrence, liver scarring consistent with cirrhosis Laboratories - 03/30 Cr 1.03, 11/29 1.5, 12/31 1.2 Plan for repeat imaging every 6 months for 5 years [facility] Medical History HTN (hypertension) Acute hyponatremia Hydronephrosis Bladder cancer Asthma Diabetes Bladder cancer Incomplete emptying of bladder due to benign prostatic hyperplasia Complicated urinary tract infection Surgical History History of surgery History of ileal conduit Social History Are you a primary nurse care manager to a significant other at home: No Do you presently have visiting nurse or other home services: No Alcohol intake: never Patient Tobacco Use Status: Never used Tobacco service: No Current occupational status: retired Review of Systems Const Denies chills and Denies fever(s) Card Reports no additional complaints and Denies syncope Resp Denies cough GI Denies abdominal pain and Denies heartburn Reports as per HPI and Denies change in libido Neuro Denies syncope Psych Denies change in libido Endo Denies change in libido Physical Exam Const General: cooperative, healthy appearing, comfortable and no acute distress Orientation/consciousness: patient oriented x3 HEENT Face and sinus: Yes normal facial exam Mouth: moist mucous membranes Neck Neck: Yes normal visual inspection, Yes full ROM and Yes trachea midline Chest Chest palpation & inspection: normal inspection of the chest Resp Effort & Inspection: normal respiratory effort, able to speak in complete sentences and no respiratory distress GI Inspection: Yes normal to inspection Back/Spine/Pelvis Cervical Spine: normal cervical lordosis Thoracic/Lumbar Spine: thoracic and lumbar spine normal to inspection Skin General skin exam: no rashes or lesions noted Neuro General: patient oriented x3, gait normal, tone normal and moves all extremities Extrem General: Yes normal to inspection and Yes capillary refill normal Assessment & Plan Assessment & Plan (1) Bladder cancer: Code(s): C67.9 - Malignant neoplasm of bladder, unspecified Category: Medical Qualifiers: Bladder location: unspecified site Qualified Code(s): C67.9 - Malignant neoplasm of bladder, unspecified Plan Six-month follow-up Orders: Orders CT urogram 6 Months C67.9 - Malignant neoplasm of bladder, unspecified Medications: New ascorbic acid (vitamin C) 1 g PO DAILY 90 days 90 tabs 1RF C67.9 - Malignant neoplasm of bladder, unspecified, N39.0 - Urinary tract infection, site not specified ostomy supplies (MicroHesive Stoma Paste) Securi-T stoma paste 60 grams 5RF C67.9 - Malignant neoplasm of bladder, unspecified povidone-iodine 10% Use for stoma change 1 pad topical Q3D 30 days 100 ea 0RF C67.9 - Malignant neoplasm of bladder, unspecified ostomy supplies (Stomahesive Skin Barrier) Securi-T [facility] [id number] - change every 3 days 30 wafers 1RF C67.9 - Malignant neoplasm of bladder, unspecified urinary bag (Assura Urostomy Pouch) Securi-T 45mm urostomy bag [id number] 10 ea 4RF C67.9 - Malignant neoplasm of bladder, unspecified Refilled methenamine hippurate 1 g PO DAILY 90 days 90 tabs 1RF C67.9 - Malignant neoplasm of bladder, unspecified cefuroxime axetil 500 mg PO BID 10 days 20 tabs 0RF C67.9 - Malignant neoplasm of bladder, unspecified Patient Instructions: Imaging studies, laboratory and physical exam results were discussed and reviewed in detail. No major barriers to patient understanding were identified. An opportunity to ask questions regarding the treatment plan was provided. All questions were answered. The patient expressed understanding and agreement with the above treatment plan. The patient is aware they should contact our office by phone for worsening of their current condition or the appearance of new urologic symptoms. Compliance is encouraged with any medications and followup testing that is ordered. It is a privilege to participate in the urologic care of your patient. If you have any questions or concerns regarding treatment for the above conditions, or other urologic issues, please do not hesitate to contact me. The office telephone contact is [phone]. This note is constructed using voice recognition software. While every effort has been made to ensure accuracy internet marketing coordinator errors may have been included. Yours sincerely, Dr Mauro Narayan MD, [facility] - Urology Providers of Expert, Compassionate Care for the Genitourinary System Coding Level of Care Code Est Pt Level 4 (31913) Diagnoses Malignant neoplasm of urinary bladder, unspecified site C67.9 Bladder location: unspecified site
== END 2024-01-05 14:21 | disposition home or self-care (01) ==
PROVIDERS: PCP Internal Medicine; Visit Provider Urology
DX: C67.9 Malignant neoplasm of bladder, unspecified (principal)
CPT/HCPCS: 99214

== ENCOUNTER → 2024-01-05 13:32 | Outpatient (BNVA) | payer MEDICARE, MEDICAID, SELFPAY | PROVIDERS: PCP Internal Medicine; Visit Provider Urology | DX: C67.9 Malignant neoplasm of bladder, unspecified (principal) | CPT/HCPCS: 99212 ==

== ENCOUNTER 2024-03-14 08:50 | Outpatient (REF) | payer MEDICARE, SELFPAY ==
[2024-03-14 10:52] LABS: Appearance Urine Clear; Color Urine Yellow; Glucose Urine UA Negative (Negative); Leukocyte Esterase Urine Large (3+) (Negative); Nitrite Urine Negative (Negative); Specific Gravity - Urine <= 1.005 (1.005-1.025); UMIC TRIGGER UA YES; Urine Blood Negative (Negative); Urine Ketones Negative (Negative); Urine Protein Trace mg/dL (Neg-Trace)
[2024-03-14 10:59] LABS: Bacteria Urine None Seen (None Seen); Hyaline Casts Urine 0-2 /LPF (0-2); RBC Urine 0-2 /HPF (0-2); Squamous Epithelial Cell Urine 0-2 /HPF (0-2)
== END 2024-03-14 08:51 | disposition home or self-care (01) ==
LOC: HO.LAB 08:50
PROVIDERS: PCP Internal Medicine; Visit Provider Urology
DX: C67.9 Malignant neoplasm of bladder, unspecified (principal); R82.90 Unspecified abnormal findings in urine
CPT/HCPCS: 81001; 87086

== ENCOUNTER 2024-04-15 10:06 | Outpatient (REF) | payer MEDICARE, SELFPAY ==
[2024-04-15 10:29] LABS: MANUAL DIFF FLAG NO
[2024-04-15 11:42] LABS: Basophils Percent Auto 0.6 % (0-2); Eosinophils Absolute Auto 1.2 X10*3/uL (0.0-0.4); Eosinophils Percent Auto 18.6 % (0-4); Hematocrit 31.9 % (42.0-52.0); Hemoglobin 10.2 g/dl (14.0-18.0); Imm Gran Abs Auto 0.02 X10*3/uL (0.00-0.03); Imm Gran Pct Auto 0.3 % (0.0-0.4); Lymphocytes Absolute Auto 1.7 X10*3/uL (1.2-4.9); Lymphocytes Percent Auto 26.9 % (20-40); Mean Corpuscular Hemoglobin 32.3 pg (27.0-33.0); Mean Corpuscular Volume 100.9 fL (80.0-98.0); Monocytes Absolute Auto 0.5 X10*3/uL (0.1-1.2); Monocytes Percent Auto 8.4 % (2-11); Neutrophils Absolute Auto 2.8 x10*3/uL (2.0-8.3); Neutrophils Percent Auto 45.2 % (45-73); Platelet Count 112 X10*3/uL (160-400); Red Blood Count 3.16 X10*6/uL (4.60-5.80); Red Cell Distribution Width 13.3 % (11.0-16.0); White Blood Count 6.2 X10*3/uL (4.8-10.8)
[2024-04-15 12:19] LABS: Alanine Aminotransferase 36 U/L (0-40); Albumin Level 3.7 g/dL (3.5-5.0); Alkaline Phosphatase 196 U/L (39-117); Anion Gap 10 (12-20); Aspartate Amino Transferase 43 U/L (5-37); Bilirubin Total 0.5 mg/dL (0.0-1.0); Blood Urea Nitrogen 23 mg/dL (9-16); Calcium 9.3 mg/dL (8.4-10.2); Carbon Dioxide 21 mmol/L (22-29); Chloride 112 mmol/L (96-108); Cholesterol 150 mg/dL (<200); Estimated Glomerular Filt Rate 58; Glucose Fasting 94 mg/dL (60-99); HDL Cholesterol 54 mg/dL (>40); LDL Cholesterol Calculated 80 mg/dL (<100); Potassium 4.8 mmol/L (3.3-5.1); Sodium 138 mmol/L (135-145); Total Protein 7.1 g/dL (6.5-8.0); Triglycerides 81 mg/dL (<150)
[2024-04-15 12:47] LABS: Ferritin 564 ng/mL (20-250)
[2024-04-15 13:01] LABS: Vitamin B12 613 pg/mL (200-900)
[2024-04-15 13:06] LABS: Folate 15.8 ng/mL (> or = 4.0)
[2024-04-15 13:18] LABS: Estimated Average Glucose 111 mg/dL; Hemoglobin A1c % 5.5 % (<6.0)
== END 2024-04-15 10:07 | disposition home or self-care (01) ==
LOC: HO.LAB 10:06
PROVIDERS: Absent Provider Internal Medicine; PCP Internal Medicine; Visit Provider Internal Medicine Medical Oncology
DX: I10 Essential (primary) hypertension (principal); E11.9 Type 2 diabetes mellitus without complications; E78.3 Hyperchylomicronemia; D64.89 Other specified anemias; E78.00 Pure hypercholesterolemia, unspecified; E87.1 Hypo-osmolality and hyponatremia
CPT/HCPCS: 36415; 80053; 80061; 82607; 82728; 82746; 83036; 85025

== ENCOUNTER 2024-05-16 08:55 | Outpatient (REF) | payer MEDICARE, SELFPAY ==
--- NOTE | ~2024-05-16 | CT_ITS ---
EXAMINATION: CT ABDOMEN AND PELVIS WITHOUT AND WITH CONTRAST CLINICAL INFORMATION: Neoplasm of bladder, unspecified. COMPARISON: CT urogram dated 05/12/2033 and 11/26/2021 and 04/08/2021. TECHNIQUE: Noncontrast CT of the abdomen and pelvis is performed followed by split bolus contrast-enhanced images using 85 mL Omnipaque 350 contrast. Postcontrast imaging is performed during the combined nephrogram and excretion phase. Sagittal and coronal reformatted images were obtained on the technologist's workstation for both the precontrast and postcontrast phases. This CT examination was performed using dose optimization techniques as appropriate, variously including the following: *Automated exposure control *Adjustment of mA and/or kV according to patient size (this includes techniques or standardized protocols for targeted exams where dose is matched to indication/reason for exam; i.e. extremities or head) *Use of iterative reconstruction technique DLP: 527 mGy-cm FINDINGS: LUNG BASES: Again seen is prominent tubular bronchiectasis in the anterior and lateral basal segments of the left lower lobe with prominent surrounding wall thickening and a progressive irregular linear area of atelectasis or scarring seen, extending to the posterior lateral pleural surface. No pleural effusion. LIVER, GALLBLADDER, AND BILIARY TREE: The liver is incompletely included. There is, however, relative atrophy of the right lobe and marked hypertrophy of the caudate lobe and lateral segment of the left lobe. Prominent nodular surface contour of the liver is seen and small perigastric and perisplenic varices are noted. No significant ascites is seen. Findings are consistent with liver cirrhosis and portal venous hypertension.. No focal hepatic lesion or biliary ductal dilatation is present. The gallbladder is unremarkable with no evidence of radiopaque gallstones, gallbladder wall thickening, or obvious pericholecystic inflammatory changes. PANCREAS: Truncated appearance of the distal pancreatic body/tail again noted. Pancreas otherwise unremarkable.. SPLEEN: Normal size and appearance. Small accessory splenule seen along the anterior margin of the spleen.. ADRENAL GLANDS: Unremarkable. KIDNEYS AND URETERS: The right kidney is asymmetrically atrophic compared to the contralateral side with progressive decrease in size of the right kidney seen, now measuring 7 cm longitudinally as compared to 8 cm (04/08/2021). There is moderate right hydronephrosis with dilatation of the right renal pelvis and proximal most right ureter. The dilated right renal calyces and renal pelvis are not well opacified with the excreted contrast, making evaluation for upper tract disease suboptimal. There is a tiny 0.2 cm right proximal ureteral filling defect (series 10, image 47), raising the suspicion of a possible urothelial neoplasm versus other eccentric debris/hemorrhage. The mid and distal right ureter are decompressed. No left-sided hydronephrosis is seen. The left ureter is decompressed. Both ureters can be followed down to the right lower quadrant diverting ileal conduit with no additional abnormal filling defect seen. The ileostomy appears unremarkable. No renal or ureteral calculi are noted. Mild nonspecific right perinephric fat stranding is noted.. BLADDER: Surgically absent. GASTROINTESTINAL TRACT: The patient is status post right lower quadrant ileal conduit diversion and urostomy. The small and large bowel are otherwise unremarkable. The appendix is not seen. ABDOMINAL WALL: Right lower quadrant urostomy with small parastomal herniation of fat and vessels seen , similar to the previous exam. LYMPH NODES: Normal. VASCULAR: Mild atherosclerotic calcification of the aortoiliac and femoral vessels are seen. PELVIC VISCERA: Surgically absent. OSSEUS STRUCTURES: Moderate vertebral spurring in the lower thoracic spine and mild vertebral spurring and lower lumbar spine. No suspicious bone findings. CT/CT urogram IMPRESSION: * Status post cystectomy with right lower quadrant ileal conduit diversion and urostomy. * Moderate right-sided hydronephrosis is seen with dilatation of the right renal pelvis and proximal most right ureter, similar to prior studies. The right renal calyces and renal pelvis are not well opacified with the excreted contrast, making evaluation for upper tract disease suboptimal. * The right kidney is asymmetrically atrophic compared to the contralateral side with progressive decrease in size of the right kidney compared to the prior exams. * No left-sided hydronephrosis. * Hepatic findings consistent with liver cirrhosis and portal venous hypertension. No focal hepatic lesion seen. * Chronic bronchiectasis in the left lower lobe with progressive linear area of atelectasis or scarring seen extending to the posterior lateral pleural surface. Electronically signed by: Jumana Stevens MD 06/22/2024 08:19 PM EST
[2024-05-16] MEDS: iohexoL 350 MG/ML 75 ML INFUS..BTL 85 ML IV (10:12)
[2024-05-16 14:24] LABS: Creatinine POC 0.8 mg/dL (0.5-1.4); GFR POC > 60
== END 2024-05-16 08:56 | disposition home or self-care (01) ==
LOC: HO.CT 08:55
PROVIDERS: PCP Internal Medicine Medical Oncology; Visit Provider Urology
DX: C67.9 Malignant neoplasm of bladder, unspecified (principal)
CPT/HCPCS: 74178; 82565; Q9967

== ENCOUNTER 2024-06-03 13:07 | Outpatient (AMB) | payer MEDICARE, SELFPAY ==
--- NOTE | 2024-06-03 13:07 | A.OFFVIS_ITS ---
Intake Visit Reasons: 6m/CT(SET) Intake Note: Patient is Present for Telephone Follow Up Urogram CT Urology Med: Ostomy supplies, Bactrim, Methenamine, Vitamin c Antibiotic Allergy: None Blood Thinner: None Urogram CT: 05/16/2024 Recent PSA: 12/18/23 PSA <0.10 Embedded Engineer Required: No Accompanied by: Self / Same As Patient Allergies aspirin Allergy (Verified 06/03/24 13:09) Unknown Beta-Blockers (Beta-Adrenergic Bloc Adverse Reaction (Verified 06/03/24 13:09) Unknown ibuprofen Adverse Reaction (Verified 06/03/24 13:09) Unknown HPI Comments Details: Allen is a very pleasant [place] male. He is a patient of Dr Jimenez. He is seen for the following urologic conditions - invasive bladder cancer - recurring UTI Telemedicine Evaluation 15 min Consultation Estimize Valerie Video Six-month follow-up 5 years since procedure Here for invasive bladder cancer surveillance Creatinine 1.2 On methenamine with vitamin-C to minimize urinary colonization Here for surveillance imaging HbA1c 8.4 down to 6.1 Imaging with right mild hydro Low folate consistent with ileal diversion and is on supplementation May move to yearly follow-up Ileostomy management - Wafer - Securi-T [facility] [id number] - Bag 45mm [id number] - Sponges 4x4 [facility] [id number] - Stoma Paste - Povidine Solution IP 10% Invasive bladder cancer [id number] cysto-prostatectomy with adjuvant chemotherapy May 2020 Had been diagnosed with BPH. Went for treatment in [facility]. Prostate resection was performed. Pathology showed invasive high-grade bladder cancer. Subsequently he underwent cysto-prostatectomy May 2020. Pathology T4N2M0 Adjuvant chemotherapy completed Follow-up staging imaging with PET CT negative October 2020 Well-maintained stoma Occasional UTI Imaging - 03/30 CT moderate right hydronephrosis but no timoteo recurrence - 10/01 CT from [place] with mild right hydronephrosis, question of prior pyelonephritis on left kidney - 11/29 CT scan mild right hydronephrosis, no timoteo recurrence, liver scarring - 12/30 CT scan continue mild right hydronephrosis, no timoteo recurrence, liver scarring consistent with cirrhosis - 05/02 CT scan continue mild right hydronephrosis, some scarring on right kidney, no timoteo recurrence, liver scarring consistent with cirrhosis Laboratories - 03/30 Cr 1.03, 11/29 1.5, 12/31 1.2 Plan for repeat imaging every 6 months for 5 years [facility] Medical History HTN (hypertension) Acute hyponatremia Hydronephrosis Bladder cancer Asthma Diabetes Bladder cancer Incomplete emptying of bladder due to benign prostatic hyperplasia Complicated urinary tract infection Surgical History History of surgery History of ileal conduit Social History Are you a primary healthcare social worker to a significant other at home: No Do you presently have visiting nurse or other home services: No Alcohol intake: never Patient Tobacco Use Status: Never used Tobacco service: No Current occupational status: retired Review of Systems Const All systems reviewed & are unremarkable except as noted in HPI and below Reports no additional complaints Resp Reports no additional complaints GI Reports no additional complaints Reports as per HPI Musc Reports no additional complaints Physical Exam Telemedicine evaluation Appropriate responses Regular breathing rate and rhythm HEENT Head: Yes normal to inspection Ears: hearing grossly normal bilaterally Eyes General: appearance normal, both eyes and all related structures Neck Neck: Yes normal visual inspection Chest Chest palpation & inspection: normal inspection of the chest Resp Effort & Inspection: normal respiratory effort and able to speak in complete sentences Telehealth Telehealth Location of provider rendering services: practice address Location of patient: address on file Patient Identification confirmed using: Name, : Yes Telehealth method: video Patient verbally consented to treatment: Yes Patient verbally consented to billing insurance company: Yes Patient informed of any privacy concerns related to visit: Yes Assessment & Plan Assessment & Plan (1) Bladder cancer: Code(s): C67.9 - Malignant neoplasm of bladder, unspecified Category: Medical Qualifiers: Bladder location: unspecified site Qualified Code(s): C67.9 - Malignant neoplasm of bladder, unspecified Plan 12 month follow-up CT urogram Orders: Orders CT urogram 12 Months C67.9 - Malignant neoplasm of bladder, unspecified Basic Metabolic Panel 1 Year C67.9 - Malignant neoplasm of bladder, unspecified, N20.0 - Calculus of kidney Patient Instructions: Imaging studies, laboratory and physical exam results were discussed and reviewed in detail. No major barriers to patient understanding were identified. An opportunity to ask questions regarding the treatment plan was provided. All questions were answered. The patient expressed understanding and agreement with the above treatment plan. The patient is aware they should contact our office by phone for worsening of their current condition or the appearance of new urologic symptoms. Compliance is encouraged with any medications and followup testing that is ordered. It is a privilege to participate in the urologic care of your patient. If you have any questions or concerns regarding treatment for the above conditions, or other urologic issues, please do not hesitate to contact me. The office telephone contact is [phone]. This note is constructed using voice recognition software. While every effort has been made to ensure accuracy solutions sales executive errors may have been included. Yours sincerely, Dr Mauro Narayan MD, [facility] - Urology Providers of Expert, Compassionate Care for the Genitourinary System Coding Level of Care Code Tele Est Pt Level 3 (42045) Diagnoses Malignant neoplasm of urinary bladder, unspecified site C67.9 Bladder location: unspecified site
--- NOTE | 2024-06-07 15:19 | MHC.OFFVIS ---
Intake Visit Reasons: 6m/CT(SET) Allergies aspirin Allergy (Verified 06/03/24 13:09) Unknown Beta-Blockers (Beta-Adrenergic Bloc Adverse Reaction (Verified 06/03/24 13:09) Unknown ibuprofen Adverse Reaction (Verified 06/03/24 13:09) Unknown [facility] Medical History HTN (hypertension) Acute hyponatremia Hydronephrosis Bladder cancer Asthma Diabetes Bladder cancer Incomplete emptying of bladder due to benign prostatic hyperplasia Complicated urinary tract infection Surgical History History of surgery History of ileal conduit Social History Are you a primary healthcare financial analyst to a significant other at home: No Do you presently have visiting nurse or other home services: No Alcohol intake: never Patient Tobacco Use Status: Never used Tobacco service: No Current occupational status: retired Assessment & Plan Assessment & Plan (1) Bladder cancer: Code(s): C67.9 - Malignant neoplasm of bladder, unspecified Category: Medical Qualifiers: Bladder location: unspecified site Qualified Code(s): C67.9 - Malignant neoplasm of bladder, unspecified Orders: Orders CT urogram 12 Months C67.9 - Malignant neoplasm of bladder, unspecified Basic Metabolic Panel 1 Year C67.9 - Malignant neoplasm of bladder, unspecified, N20.0 - Calculus of kidney Coding Diagnoses Malignant neoplasm of urinary bladder, unspecified site C67.9 Bladder location: unspecified site
== END 2024-06-03 14:37 | disposition home or self-care (01) ==
LOC: HO.HUSH 13:07
PROVIDERS: PCP Internal Medicine Medical Oncology; Visit Provider Urology
DX: C67.9 Malignant neoplasm of bladder, unspecified (principal)
CPT/HCPCS: 99213

== ENCOUNTER → 2024-06-03 13:07 | Outpatient (BNVA) | payer MEDICARE, SELFPAY | PROVIDERS: PCP Internal Medicine Medical Oncology; Visit Provider Urology ==

== ENCOUNTER 2025-01-10 15:34 | Outpatient (REF) | payer MEDICARE, SELFPAY ==
--- OUTSIDE RECORDS SUMMARY | 2025-01-10 16:57 | XMS_ITS ---
Author Organization Darrian Ziegler III, MD Address [address] [place] [address] Care Team Providers Care Infant And Toddler Teacher Name Role Phone Tony PINK, [facility] Primary Care Provider Darrian Smith [phone] Allergies Allergen (clinical drug ingredient) Drug/Non Drug [...] Date Provider Diagnosis Darrian Ziegler III, MD [address] [place] [address] [address] [place], [place] [id number] 05/02/2024 Darrian Ziegler HTN (hypertension) I 10 [...] the liver has been done by his jig builder, Dr. Burnett. It showed thickening of the [...] OV Provider Name:Darrian Ziegler, 01/31/2025 10:15:00 AM, [address] [place] [address] , [place], [place], [id number], Progress Notes * PERFECTO Candelariochandu KDOB: (74 yo M)Acc No.[id number]:05/02/2024 Progress Notes Patient:?Alec AGOSTO Provider:?Darrian Ziegler MD :1950???Age:74 Y???Sex:Male Michael e:05/02/2024 Address:[address] [place], [place] [id number] Pcp:Hilary Jimenez MD Subjective: * Chief Complaints: * ???History of urothelial car cinomaHistory of radical cystectomyNormochromic normocytic anemiaHepatic cirrhosisDiabetesHypertensionHypothyroidBPH * HPI: ???COVID-19 Screening:?He returns for oncology management.? He has had no symptoms referable to relapsed bladder cancer.? Urostomy is functioning well.? He is up-to-date with urology.? He has no new complaints.? He was seen by gastroenterology and an MRI of the liver has been performed Which showed thickening of the right renal pelvis of uncertain cause as well as 2 small hyperintense enhancing lesions in the liver that were equivocal for hepatocellular carcinoma, Li Rads 3. ?Questions?Have you experienced fever, chills, cough, sore throat, shortness of breath, difficulty breathing, muscle aches, loss of taste or smell??No ?Have you been exposed to the virus within the last 10 days??No ?Have you travelled internationally in the last 10 days??No ?Have you been exposed to COVID-19 in the past??No * ROS:?General/Constitutional:?pain?only normal aches and pains.?Chills?denies.?Fatigue?admits.?Fever?denies.?ENT:?Decreased hearing?denies.?Respiratory:?Cough?denies.?Cardiovascular:?Chest pain with exertion?denies.?Dyspnea on exertion?denies.?Shortness of breath?denies.?Gastrointestinal:?Constipation?denies.?Decreased appetite?denies.?Diarrhea?denies.?Heartburn?occasional.?Nausea?denies.?Rectal bleeding?denies.?Vomiting?denies.?Hematology:?bruising?denies.?petechiae?denies.?Swollen glands?none have been noted.?Genitourinary:?Frequent urination?once a night, to empty urostomy pouch.?Musculoskeletal:?Muscle aches?denies.?Painful joints?denies.?Sciatica?denies.?Weakness?denies.?Skin:?Itching?denies.?Rash?denies.?Skin lesion(s)?denies.?Neurologic:?Difficulty speaking?denies.?Dizziness?denies.?Headache?denies.?Low back pain?denies.?Psychiatric:?Depressed mood?denies.? * Medical History:? * Surgical History:?Radical cy sectomy Appendectomy, ileal conduit 02/2020Cataract surgery, left eye 2016Cataract surgery, right eye 2019Herniorrhaphy 02/2020 * Hospitalization/Major Diagno stic Procedure:?Bladder CA 02/2020 * Family History:?Father: dece ased 88 yrs.?Mother: 85 yrs, diagnosed with HTN.?Siblings: diagnosed with DM, HTN.?2 brother(s) , 1 sister(s) - healthy. 2 son(s) - healthy. .? His mother has a history of high blood pressure and asthma. His sisters likewise have a history of high blood pressure and asthma. Several siblings are diabetic. He has children with diabetes. He is not aware of any inherited cancer family syndrome. He is not aware of any family history of mental illness or substance use disorder, or addictions. * Social History:?Tobacco Use:?Tobacco Use/Smoking?Patient is a?nonsmoker ?Additional Findings: Tobacco Non-User?Aggressive non-smoker ???He was born in [place] and now lives in [place], [place]. He is and has several children. He is currently retired. * Medications:?TakingMethenami ne Hippurate 1 GM Tablet 1 tablet Orally [...] reviewed and reconciled with the patient * Allergies:?MotrinAspirinno[A llergies Verified] Objective: * Vitals:?Ht: 61, Wt:128, BMI: 24.18, BP:136/69, HR:68, Temp:97.2, Wt-k.06. * ???Past Orders: Lab:[facility] gross Fast * Collection Date 04/15/2024 12/18/2023 Collection Time 10:27 AM 10:47 AM Order Date 04/15/2024 12/18/2023 Sodium 138 (Ref Range: 135-145 mmol/L) 132?L (Ref Range: 135-145 mmol/L) Bilirubin Total 0.5 (Ref Range: 0.0-1.0 mg/dL) 0.8 (Ref Range: 0.0-1.0 mg/dL) Aspartate Amino Transferase 43?H (Ref Range: 5-37 U/L) 43?H (Ref Range: 5-37 U/L) Alanine Aminotransferase 36 (Ref Range: 0-40 U/L) 29 (Ref Range: 0-40 U/L) Total Protein 7.1 (Ref Range: 6.5-8.0 g/dL) 8.7?H (Ref Range: 6.5-8.0 g/dL) Albumin Level 3.7 (Ref Range: 3.5-5.0 g/dL) 3.6 (Ref Range: 3.5-5.0 g/dL) Alkaline Phosphatase 196?H (Ref Range: 39-117 U/L) 282?H (Ref Range: 39-117 U/L) Potassium 4.8 (Ref Range: 3.3-5.1 mmol/L) 4.1 (Ref Range: 3.3-5.1 mmol/L) Chloride 112?H (Ref Range: 96-108 mmol/L) 106 (Ref Range: 96-108 mmol/L) Carbon Dioxide 21?L (Ref Range: 22-29 mmol/L) 16?L (Ref Range: 22-29 mmol/L) Anion Gap 10?L (Ref Range: 12-20) 14 (Ref Range: 12-20) Blood Urea Nitrogen 23?H (Ref Range: 9-16 mg/dL) 14 (Ref Range: 9-16 mg/dL) Creatinine 1.22 (Ref Range: 0.5-1.4 mg/dL) 1.21 (Ref Range: 0.5-1.4 mg/dL) Estimated Glomerular Filt Rate 58 58 Glucose Fasting 94 (Ref Range: 60-99 mg/dL) 164?H (Ref Range: 60-99 mg/dL) Calcium 9.3 (Ref [...] HDL Cholesterol 54 (Ref Range: >40 mg/dL) 30?L (Ref Range: >40 mg/dL) * Lab:Hemoglobin A1c * Collection Date 04/15/2024 12/18/2023 Collection Time 10:27 AM 10:47 AM Order Date 04/15/2024 12/18/2023 Hemoglobin A1c % 5.5 (Ref Range: <6.0 %) 6.2?H (Ref Range: <6.0 %) Estimated Average Glucose 111 (Ref Range: mg/dL) 131 (Ref Range: mg/dL) * Examination: ???General Examination: ?GENERAL APPEARANCE:?pleasant, well nourished, well developed, in no acute distress, calm and relaxed, man.?HEAD:?atraumatic, normocephalic.?EYES:?eomi, perrla, anicteric, conjugate.?EARS:?normal.?NOSE:?septum intact.?ORAL CAVITY:?normal, unremarkable.?NECK/THYROID:?no jugular venous distention, no carotid bruit, thyroid normal.?LYMPH NODES:?no enlarged lymph nodes,spleen normal.?SKIN:?no suspicious lesions, anicteric.?HEART:?no clicks, gallops, murmurs, or rubs, regular rhythm, S1, S2 normal, no s3, or vascular bruits.?LUNGS:?clear to auscultation .?BREASTS:??no masses palpable bilaterally.?ABDOMEN:?bowel sounds normal, no ascites, no organomegaly, no mass, Urostomy opening right upper abdomen functioning well unremarkable with healthy pink tissue.?RECTAL EXAM:?not examined.?MUSCULOSKELETAL:?extremities unremarkable, no clubbing, cyanosis or edema.?PERIPHERAL PULSES:?normal.?NEUROLOGIC:?alert and oriented, cranial nerves 2-12 grossly intact, deep tendon reflexes 2+ symmetrical, motor strength normal upper and lower extremities, sensory exam intact.?PSYCH:?alert, oriented.? Assessment: * Assessment: 1.?HTN (hypertension) - I10 (Primary)???Notes :His blood pressure is currently stable at 136/69 and no change in his regimen is needed today.???2.?Anemia - D64.9???Notes :The hematocrit this month is 31.9 with a mean cell volume of 100.9.? This value will be observed.? It is stable.???3.?Mixed hyperlipidemia - E78.2???Notes :Is currently stable and no change in his treatment is needed.???4.?Benign prostatic hyperplasia with lower urinary tract symptoms - N40.1???Notes :He has been rising from sleep once or twice a night to urinate.? No change in his regimen as needed.???5.?Diabetes mellitus - E11.9???Notes :His diabetes has been well controlled. No change in his medications was necessary today.???6.?Urothelial carcinoma - C68.9???Notes :There is no sign of recurrent disease at this time. The ileostomy is functioning well.???7.?Cirrhosis of liver without ascites, unspecified hepatic cirrhosis type - K74.60???Notes :On the MRI of the liver has been done by his jig builder, Dr. Burnett.? It showed thickening of the renal pelvis which will be referred to urology.? It also showed 2 enhancing masses in the liver 1 being 1.1 cm equivocal for hepatocellular carcinoma.? This will be followed.? An alpha-fetoprotein will be obtained.??? Plan: * Treatment: 2.?Anemia?LAB: PROFILE, FASTING (COMPREHENSIVE METABOLIC) ?LAB: PSA, TOTAL ?LAB: CBC WITH AUTO DIFF ?LAB: Lipid Panel 3.?Mixed hyperlipidemia?LAB: PROFILE, FASTING (COMPREHENSIVE METABOLIC) ?LAB: PSA, TOTAL ?LAB: CBC WITH AUTO DIFF ?LAB: Lipid Panel 4.?Benign prostatic hyperpla zamzam with lower urinary tract symptoms?LAB: PROFILE, FASTING (COMPREHENSIVE METABOLIC) ?LAB: PSA, TOTAL ?LAB: CBC WITH AUTO DIFF ?LAB: Lipid Panel * Procedure Codes:? * Preventive Medicine:? ??DM Care Plan:?Patient Lifestyle Goals?Patient wants to be able to manage diabetes without too much effort.?Treatment Goals?Blood Sugars less than < 115, HbA1C < 7.0.?Barriers?no barriers.?Self-Managment Goals?Increase exercise to 3 times a week for 30 mins, Stop drinking juice and/or soda, replace with more water.? * Follow Up:?7 Months (Reason: OV) * Images: * Sign off status: Completed true * Provider:?Darrian Ziegler MD Date:?04/11 Generated for Printi ng/Fabonig/eTransmitting on:?01/10/2025 04:57 PM EDT History and Physical Notes * HPI (History of Present Illness) Category Sub-Category Detail Notes COVID-19 Screening Questions Have you had any new onset fever, chills, cough, congestion, sore throat, shortness of breath, muscle aches?: No Have you been exposed to the virus withi n the last 10 days?: No Have you travelled internationally in hospital for special surgery last 10 days?: No Have you been [...]
[2025-01-10 17:12] LABS: Estimated Average Glucose 103 mg/dL; Hemoglobin A1c % 5.2 % (<6.0)
[2025-01-10 17:41] LABS: Alanine Aminotransferase 27 U/L (0-40); Albumin Level 3.4 g/dL (3.5-5.0); Alkaline Phosphatase 214 U/L (39-117); Anion Gap 9 (12-20); Aspartate Amino Transferase 48 U/L (5-37); Bilirubin Total 0.5 mg/dL (0.0-1.0); Blood Urea Nitrogen 10 mg/dL (9-16); Calcium 8.5 mg/dL (8.4-10.2); Carbon Dioxide 19 mmol/L (22-29); Chloride 113 mmol/L (96-108); Estimated Glomerular Filt Rate > 60; Glucose Random 116 mg/dL (60-115); Potassium 4.2 mmol/L (3.3-5.1); Sodium 137 mmol/L (135-145); Total Protein 6.7 g/dL (6.5-8.0)
[2025-01-10 17:50] LABS: Creatinine Urine 22.71 mg/dL; Microalbum/Creatinine Ratio Ur 343.4 ug/mg cr (<30)
[2025-01-13 08:22] LABS: TS Negative Control Passed; TS Panel A 2; TS Panel B 1; TS Positive Control Passed; TSpotTB Negative (Negative)
== END 2025-01-10 15:35 | disposition home or self-care (01) ==
LOC: HO.LAB 15:34
PROVIDERS: PCP Internal Medicine; Visit Provider Internal Medicine
DX: E11.9 Type 2 diabetes mellitus without complications (principal); I10 Essential (primary) hypertension; J45.909 Unspecified asthma, uncomplicated; R74.01 Elevation of levels of liver transaminase levels
CPT/HCPCS: 36415; 80053; 82043; 82570; 83036; 86481

== ENCOUNTER 2025-01-26 09:03 | Outpatient (REF) | payer OTHER, SELFPAY ==
--- OUTSIDE RECORDS SUMMARY | 2024-05-02 11:30 | XMS_ITS ---
Author Organization Darrian Ziegler III, MD Address [address] [place] [address] [place] [address] Care Team Providers Care Tugboat Pilot Name Role Phone Tony PINK, [facility] Primary Care Provider Darrian Smith [phone] Allergies Allergen (clinical drug ingredient) Drug/Non Drug [...] Date Provider Diagnosis Darrian Ziegler III, MD [address] [place] [address] [place], [place] [address] 05/02/2024 Darrian Ziegler HTN (hypertension) I 10 [...] the liver has been done by his certifier, Dr. Burnett. It showed thickening of the [...] Up: 7 Months, Reason: OV Provider Name:Darrian Ziegler, 01/31/2025 10:15:00 AM, [address] [place] [address], [address], Progress Notes * Candelario AGOSTOchandu KDOB: (74 yo M)Acc No.[id number]:05/02/2024 Progress Notes Patient: Zehra GALICIA Provider: Yahaira Ziegler MD :1950 A ge:74 Y S ex:Male Date:05/02/2024 Address:[address] [place], [place] [phone] Pcp:Hilary Jimenez MD Subjective: * Chief Complaints: [...] born in [place] and now lives in [place], [place]. He is and has several children. [...] Temp:97.2, Wt-k.06. * P ast Orders: Lab:Comprehensive [place]. Pane l Fast * Collection Date 04/15/2024 12/18/2023 [...] the liver has been done by his certifier, Dr. Burnett. It showed thickening of the [...] 0 05/02/2024 Generated for Printi ng/Faxing/eTransmitting on: 0 01/26/2025 09:40 AM EDT History and Physical Notes * HPI (History of Present Illness) Category Sub-Category Detail Notes COVID-19 Screening Questions Have you had any new onset fever, chills, cough, congestion, sore throat, shortness of breath, muscle aches?: No Have you been exposed to the virus withi n the last 10 days?: No Have you travelled internationally in [facility] last 10 days?: No Have you been [...]
[2025-01-26 09:35] LABS: Basophils Absolute Auto 0.1 X10*3/uL (0.0-0.2); Basophils Percent Auto 1.1 % (0-2); Eosinophils Absolute Auto 1.6 X10*3/uL (0.0-0.4); Eosinophils Percent Auto 20.9 % (0-4); Hematocrit 31.1 % (42.0-52.0); Hemoglobin 10.1 g/dl (14.0-18.0); Imm Gran Abs Auto 0.03 X10*3/uL (0.00-0.03); Imm Gran Pct Auto 0.4 % (0.0-0.4); Lymphocytes Absolute Auto 1.5 X10*3/uL (1.2-4.9); MANUAL DIFF FLAG SCAN; Mean Corpuscular HGB Conc 32.5 g/dl (31.0-36.0); Mean Corpuscular Hemoglobin 32.6 pg (27.0-33.0); Mean Corpuscular Volume 100.3 fL (80.0-98.0); Mean Platelet Volume 10.9 fL (9.4-12.4); Monocytes Absolute Auto 0.6 X10*3/uL (0.1-1.2); Monocytes Percent Auto 7.4 % (2-11); Neutrophils Absolute Auto 3.7 x10*3/uL (2.0-8.3); Neutrophils Percent Auto 50.2 % (45-73); Platelet Count 144 X10*3/uL (160-400); Red Cell Distribution Width 15.9 % (11.0-16.0); SCAN SMEAR FLAG 1; White Blood Count 7.4 X10*3/uL (4.8-10.8)
[2025-01-26 09:54] LABS: SLIDE REVIEW VERIFIED
[2025-01-26 10:00] LABS: Albumin Level 3.7 g/dL (3.5-5.0); Alkaline Phosphatase 262 U/L (39-117); Anion Gap 9 (12-20); Aspartate Amino Transferase 62 U/L (5-37); Bilirubin Total 0.7 mg/dL (0.0-1.0); Blood Urea Nitrogen 15 mg/dL (9-16); Calcium 9.2 mg/dL (8.4-10.2); Carbon Dioxide 21 mmol/L (22-29); Chloride 112 mmol/L (96-108); Cholesterol 148 mg/dL (<200); Estimated Glomerular Filt Rate > 60; Glucose Fasting 110 mg/dL (60-99); HDL Cholesterol 49 mg/dL (>40); LDL Cholesterol Calculated 80 mg/dL (<100); Potassium 4.2 mmol/L (3.3-5.1); Sodium 138 mmol/L (135-145); Total Protein 7.4 g/dL (6.5-8.0); Triglycerides 95 mg/dL (<150)
[2025-01-26 10:26] LABS: Prostate Specific Antigen < 0.10 ng/mL (<0.05-4.0)
[2025-01-26 10:49] LABS: Alanine Aminotransferase 35 U/L (0-40)
== END 2025-01-26 09:04 | disposition home or self-care (01) ==
LOC: HO.LAB 09:03
PROVIDERS: PCP Internal Medicine Medical Oncology; Visit Provider Internal Medicine Medical Oncology
DX: I10 Essential (primary) hypertension (principal); D64.9 Anemia, unspecified; E78.2 Mixed hyperlipidemia; N40.1 Benign prostatic hyperplasia with lower urinary tract symptoms; Z12.5 Encounter for screening for malignant neoplasm of prostate
CPT/HCPCS: 36415; 80053; 80061; 84153; 85025

== ENCOUNTER 2025-01-27 12:14 | Outpatient (REF) | payer OTHER, SELFPAY ==
[2025-01-27 13:31] LABS: Appearance Urine Cloudy; Color Urine Yellow; Glucose Urine UA Negative (Negative); Leukocyte Esterase Urine Large (3+) (Negative); Nitrite Urine Negative (Negative); PH 7.5 (5.0-9.0); UMIC TRIGGER UA YES; Urine Blood Moderate (2+) (Negative); Urine Ketones Negative (Negative); Urine Protein 100 (2+) mg/dL (Neg-Trace)
[2025-01-27 13:47] LABS: Bacteria Urine 2+ (None Seen); Hyaline Casts Urine 0-2 /LPF (0-2); Squamous Epithelial Cell Urine 0-2 /HPF (0-2)
== END 2025-01-27 12:15 | disposition home or self-care (01) ==
LOC: HO.LAB 12:14
PROVIDERS: Visit Provider Urology
DX: C67.9 Malignant neoplasm of bladder, unspecified (principal); N39.0 Urinary tract infection, site not specified
CPT/HCPCS: 81001; 87086

== ENCOUNTER 2025-03-01 05:33 | Inpatient (IN) | payer OTHER, MEDICAID, SELFPAY ==
[2025-03-01] VITALS (11 sets, daily range): BP systolic 103–149; BP diastolic 41–65; PULSE 67–101; RESP 12–24; TEMP 37.1–38.7; O2SAT 96–100; BMI 23.6; BMI 25.3
--- NOTE | ~2025-03-01 | XR_ITS ---
EXAMINATION: XR CHEST CLINICAL INFORMATION: fever COMPARISON: January 25, 2023. TECHNIQUE: Frontal view of the chest was obtained. FINDINGS: Pulmonary reticular pattern. Questionable air bronchograms and subtle opacity, left retrocardiac. No pleural effusion or pneumothorax. No hyperinflation. Cardiomediastinal silhouette size is normal. Multilevel thoracic spondylosis. Degenerative changes in the acromioclavicular joints. XR/XR chest 1V IMPRESSION: Questionable airspace disease, left lower lung lobe/retrocardiac. Electronically signed by: Farhad Johnson MD 03/01/2025 07:53 AM EDT
--- NOTE | ~2025-03-01 | CT_ITS ---
EXAMINATION: CT ABDOMEN PELVIS WITHOUT IV CONTRAST, CT CHEST WITHOUT IV CONTRAST INDICATION: pneumonia. ? [place] COMPARISON: Comparison is made with the prior CT of the abdomen without contrast dated 05/16/2024. Correlation is also made with an AP portable view of the chest performed earlier in the day. TECHNIQUE: CT scan of the chest, abdomen and pelvis was performed without contrast using standard departmental protocol. Coronal and sagittal reformatted images were generated and reviewed. Oral contrast material was not administered at the request of the referring physician. This CT exam was performed with one or more of the following dose reduction techniques: automated exposure control, adjustment of the mA and/or kV according to patient size, use of iterative reconstruction technique. DLP: 538 mGy-cm CHEST: THYROID: The thyroid is unremarkable. LUNGS: There is a lobulated mass in the left lower lobe measuring 4.8 x 4.3 x 4.2 cm, highly suspicious for neoplasm. Smaller opacities in the left lower lobe may represent subsegmental atelectasis or smaller nodules. The right lung is clear. MEDIASTINUM: There is an enlarged 1.6 cm precarinal lymph node. Additional right paratracheal and AP window lymph nodes are identified measuring up to 1.2 cm in size. HUMBERTO: Evaluation of the hilar regions is limited by lack of intravenous contrast material. CARDIOVASCULATURE: The heart is normal in size. There is no pericardial effusion. The thoracic aorta is normal in caliber. DEGREE OF CORONARY CALCIFICATION: moderate to severe. PLEURA: There is no pleural effusion. No pneumothorax. MAIN AIRWAYS: The mainstem bronchi and proximal branches are patent. AXILLA: There is no axillary lymphadenopathy. SOFT TISSUES: Unremarkable. BONES: The bones are intact. ABDOMEN: LIVER: The liver demonstrates a nodular contour consistent with cirrhosis. There is atrophy of the right lobe and hypertrophy of the left and caudate lobes. Evaluation for masses is limited without IV contrast material. GALLBLADDER / BILE DUCTS: There is a calcified stone in the gallbladder. There is no intra or extrahepatic biliary ductal dilatation. SPLEEN: The spleen is top normal in size. PANCREAS: The pancreas has an unremarkable unenhanced appearance. ADRENAL GLANDS: Unremarkable. KIDNEYS/RETROPERITONEUM: Again seen is right renal atrophy. There is dilatation of the right renal pelvis and ureter to the level of a urinary diversion in the right lower quadrant. Dilatation of the collecting system may represent reflux and is not significantly changed from the prior study. There is no left hydronephrosis. No renal or ureteral calculi are identified.. LYMPH NODES: No retroperitoneal lymphadenopathy is identified in the abdomen or pelvis. VASCULATURE: The abdominal aorta demonstrates atherosclerotic calcification, but is normal in caliber. MESENTERY/PERITONEUM: No free fluid. No masses. There is no free intraperitoneal gas. STOMACH: The stomach is collapsed, limiting evaluation. SMALL BOWEL: The small bowel is normal in caliber. COLON: The colon is unremarkable. APPENDIX: The appendix is not seen, however no inflammatory changes are seen adjacent to the cecum. URINARY BLADDER/PELVIC ORGANS: The patient is status post cystectomy. There is an ileal loop and ostomy in the right lower quadrant. The prostate is surgically absent. BONES / SOFT TISSUES: No suspicious bony or soft tissue abnormalities. CT/CT abdomen pelvis wo IV con IMPRESSION: 1. Lobulated 4.8 x 4.3 x 4.2 cm in left lower lobe mass, highly suspicious for neoplasm. There is associated mediastinal lymphadenopathy, as described. 2. Atrophic right kidney with mild dilatation of the renal pelvis and ureter to the level of a urinary diversion. Findings are similar to the prior study and likely represent reflux. 3. Cirrhosis of the liver. 4. These findings were discussed with Dr. Hernandez in the emergency room on 03/01/2025 at 10:24 AM. Electronically signed by: Darrian Fernandez MD 03/01/2025 10:29 AM EDT
[2025-03-01 06:00] LABS: Hematocrit 27.8 % (42.0-52.0); Hemoglobin 9.7 g/dl (14.0-18.0); Mean Corpuscular HGB Conc 34.9 g/dl (31.0-36.0); Mean Corpuscular Hemoglobin 33.1 pg (27.0-33.0); Mean Corpuscular Volume 94.9 fL (80.0-98.0); NRBC Abs Auto 0.000 X10*3/uL (0.0-0.012); NRBC Pct Auto 0.0 /100WBC (0.0-0.2); Platelet Count 121 X10*3/uL (160-400); Red Blood Count 2.93 X10*6/uL (4.60-5.80); White Blood Count 20.3 X10*3/uL (4.8-10.8)
[2025-03-01 06:14] LABS: Alanine Aminotransferase 34 U/L (0-40); Albumin Level 3.6 g/dL (3.5-5.0); Alkaline Phosphatase 268 U/L (39-117); Anion Gap 12 (12-20); Aspartate Amino Transferase 53 U/L (5-37); Blood Urea Nitrogen 22 mg/dL (9-16); Calcium 8.6 mg/dL (8.4-10.2); Carbon Dioxide 13 mmol/L (22-29); Chloride 107 mmol/L (96-108); Creatinine Clr Calc Pharmacy 32.7; Estimated Glomerular Filt Rate 46; Potassium 4.2 mmol/L (3.3-5.1); Sodium 128 mmol/L (135-145); Total Protein 7.1 g/dL (6.5-8.0)
[2025-03-01 06:37] LABS: Resp Syncy Virus RNA Qual PCR NEGATIVE (Negative); SARS COV2 PCR INHOUSE NEGATIVE (Negative)
--- NOTE | 2025-03-01 07:13 | ED.GENADULT ---
HPI - General Adult General Chief complaint: General Medical Stated complaint: Gen Med Time Seen by Provider: 03/01/25 07:02 Source: patient Limitations: no limitations History of Present Illness HPI narrative: Mr. Agosto is a 74 years old with a history of bladder cancer diverting urostomy presented to the emergency department complaining of generalized weakness rigors fever since yesterday. He denies any cough he denies any vomiting denies any diarrhea. Onset (ago): day(s) (1) Radiation: non-radiation Severity: moderate Severity scale (1-10): 4 Quality: constant Pain Consistency: constant Relieving factors: none Exacerbating factors: none Associated symptoms: malaise and weakness Treatments prior to arrival: none Related Data Home Medications ?Medication ?Instructions ?Recorded ?Confirmed blood sugar diagnostic (FreeStyle #10 ea 04/18/21 01/05/24 Lite Strips) montelukast 10 mg tablet 10 mg PO DAILY 04/18/21 03/01/25 lancets 28 gauge (FreeStyle #100 ea 06/24/21 01/05/24 Lancets) folic acid 1 mg tablet 1 mg PO DAILY 12/10/21 03/01/25 albuterol sulfate 90 mcg/actuation 2 puff PO QID PRN Shortness Of 02/08/22 03/01/25 aerosol inhaler Breath atorvastatin 20 mg tablet 20 mg PO DAILY 03/01/25 03/01/25 ferrous sulfate 325 mg (65 mg 325 mg PO DAILY 03/01/25 03/01/25 iron) tablet (iron) metformin 500 mg tablet 500 mg PO BID 03/01/25 03/01/25 sitagliptin phosphate 50 mg tablet 50 mg PO DAILY 03/01/25 03/01/25 (Januvia) telmisartan 20 mg tablet 20 mg PO DAILY 03/01/25 03/01/25 vitamin B complex 1 tab PO DAILY 03/01/25 03/01/25 Previous Rx's ?Medication ?Instructions ?Recorded budesonide-formoterol HFA 160 2 puff inhalation Q12H #10.2 grams 01/26/23 mcg-4.5 mcg/actuation aerosol inhaler (Symbicort) ostomy supplies (MicroHesive Stoma #60 grams 01/14/24 Paste) ostomy supplies 4 X 4 wafer #30 wafers 01/14/24 (Stomahesive Skin Barrier) urinary bag 10 (Assura Urostomy #10 ea 01/14/24 Pouch) Allergies Allergy/AdvReac Type Severity Reaction Status Date / Time aspirin Allergy Unknown Verified 03/01/25 05:41 Beta-Blockers AdvReac Unknown Verified 03/01/25 05:41 (Beta-Adrenergic Bloc ibuprofen AdvReac Unknown Verified 03/01/25 05:41 Review of Systems Constitutional: Constitutional: Reports body ache(s), Reports chills and Reports weakness ENT: Reports system reviewed and no additional complaints, except as documented Neurologic: Reports weakness [facility] Past Medical History Attestation statement: The following information was validated with the patient. Medical History HTN (hypertension) Acute hyponatremia Hydronephrosis Bladder cancer Asthma Diabetes Bladder cancer Incomplete emptying of bladder due to benign prostatic hyperplasia Complicated urinary tract infection Surgical History History of surgery History of ileal conduit Social History Social History Are you a primary continuum of care manager to a significant other at home: No Do you presently have visiting nurse or other home services: No Alcohol intake: never Patient Tobacco Use Status: Never used Tobacco Advance Directives: No Advance Directives Information Provided: Yes service: No Current occupational status: retired Physical Exam ED Vital Signs: Vital Signs - 24 hr 03/01/25 05:37 03/01/25 08:00 Temperature 99.4 F 100.8 F H Pulse Rate 100 67 Respiratory Rate 14 16 Blood Pressure 149/56 H 137/57 L Pulse Oximetry 100 97 Oxygen Delivery Method Room Air Room Air BMI result Body Mass Index 23.6 Const General: cooperative Nutritional Appearance: average body habitus Orientation/consciousness: patient oriented x3 Limitations: no limitations HENMT Head: Yes normal to inspection General nose exam: Normal external nose present Face and sinus: Yes normal facial exam Mouth: Normal oral and palatal mucosa present Neck Neck: Yes normal visual inspection Chest Chest palpation & inspection: normal inspection of the chest Resp Effort & Inspection: normal respiratory effort Auscultation: clear to auscultation bilaterally Cardio Jugular venous distension: no JVD Rate: regular rate Rhythm: regular rhythm GI Inspection: Yes normal to inspection Palpation (GI): Soft to palpation, not firm, nontender and no guarding Percussion: Yes normal to percussion Skin General skin exam: no rashes or lesions noted, elasticity normal and turgor normal Lesions: no lesions Rashes: no rashes Trauma: no lacerations or abrasions Neuro General: patient oriented x3 Cranial nerves: Yes CN's II-XII intact bilaterally Course Reevaluation(s) Reevaluation #1: IV line inserted by me under ultrasound left brachial vein difficult VARNISH REMOVER could not establish abscess Time: 08:47 Reevaluation #2: CT scan of the chest reviewed interpreted by me by also reviewed the radiology report lung mass in the left this was communicated to the hospitalist Dr. Story Time: 10:32 Medications Administered Discontinued Medications Generic Name Dose Route Start Last Admin Trade Name Freq PRN Reason Stop Dose Admin Acetaminophen 975 mg 03/01/25 08:22 03/01/25 08:34 Acetaminophen 325 Mg Tablet PO 03/01/25 08:23 975 mg ONCE ONE Administration Lactated Ringer's 1,000 mls @ 999 mls/hr 03/01/25 07:15 03/01/25 10:12 Lr IV 03/01/25 08:15 Infused .Q1H1M STEVEN Infusion Cefepime HCl 2 gm in 50 mls @ 100 mls/hr 03/01/25 07:05 03/01/25 08:49 Maxipime IV 03/01/25 07:34 Infused ONCE ONE Infusion Procedures EJ/Peripheral Line Arm L: Time Out Performed: Yes Skin Cleansed in Sterile Fashion: Yes Size (gauge): 20 IV Secured and Dressing Applied: Yes Patient Tolerated Procedure: well Additional Comments: Under ultrasound-guided cannulated the left deep brachial vein with a 20 gauge long catheter good blood return ,good flash Medical Decision Making Medical Decision Making MDM Narrative: Patient is here with generalized weakness chills malaise history of bladder cancer with a diverting urostomy we will check labs and blood culture lactic acid Differential Diagnosis Differential Diagnoses: The differential diagnosis associated with the presentation includes Sepsis/urinary tract infection/dehydration/viral syndrome Admission/Observation Consideration of admission/observation: Escalation of care including admission/observation considered Lab Data MDM Lab Attestation statement: I reviewed the patient's lab results. There is a metabolic acidosis with no anion gap, elevated white count, LUIS 07/23/25 05:55 03/01/25 05:55 Labs: Lab Results 03/01/25 03/01/25 03/01/25 Range/Units 05:55 07:34 08:05 WBC 20.3 H (4.8-10.8) X10*3/uL RBC 2.93 L (4.60-5.80) X10*6/uL Hgb 9.7 L (14.0-18.0) g/dl Hct 27.8 L (42.0-52.0) % MCV 94.9 (80.0-98.0) fL MCH 33.1 H (27.0-33.0) pg MCHC 34.9 (31.0-36.0) g/dl RDW 13.4 (11.0-16.0) % Plt Count 121 L (160-400) X10*3/uL MPV 9.8 (9.4-12.4) fL Absolute Nucleated RBC 0.000 (0.0-0.012) X10*3/uL Nucleated RBC % (auto) 0.0 (0.0-0.2) /100WBC Sodium 128 L (135-145) mmol/L Potassium 4.2 (3.3-5.1) mmol/L Chloride 107 (96-108) mmol/L Carbon Dioxide 13 L (22-29) mmol/L Anion Gap 12 (12-20) BUN 22 H (9-16) mg/dL Creatinine 1.48 H (0.5-1.4) mg/dL Estim Creat Clear Calc 32.7 Estimated GFR 46 Random Glucose 183 H (60-115) mg/dL Lactic Acid 2.0 (0.5-2.0) mmol/L Calcium 8.6 D (8.4-10.2) mg/dL Total Bilirubin 1.0 (0.0-1.0) mg/dL AST 53 H (5-37) U/L ALT 34 (0-40) U/L Alkaline Phosphatase 268 H (39-117) U/L Total Protein 7.1 (6.5-8.0) g/dL Albumin 3.6 (3.5-5.0) g/dL Urine Color Yellow Urine Appearance Cloudy Urine pH 6.5 (5.0-9.0) Ur Specific [place] 1.015 (1.005-1.025) Urine Protein 100 (2+) H (Neg-Trace) mg/dL Urine Glucose (UA) Negative (Negative) mg/dL Urine Ketones Negative (Negative) mg/dL Urine Blood Small (1+) H (Negative) Urine Nitrite Negative (Negative) Ur Leukocyte Esterase Moderate (2+) H (Negative) Urine RBC 0-2 (0-2) /HPF Urine WBC 6-10 (0-5) /HPF Ur Squamous Epith Cells 6-10 (0-2) /HPF Urine Bacteria 3+ (None Seen) Hyaline Casts 6-10 (0-2) /LPF Urine Osmolality 351 L (373-1093) mosm/kg Ur Random Sodium 65.0 mmol/L Ur Random Potassium 18.9 mmol/L Ur Random Chloride 50.0 mmol/L Influenza Type A (PCR) NEGATIVE (Negative) Influenza Type B (PCR) NEGATIVE (Negative) RSV RNA Qual (PCR) NEGATIVE (Negative) SARS-CoV-2 RNA (RT-PCR) NEGATIVE (Negative) Independent Interpretation I performed an independent interpretation of an: CT Scan (I personally reviewed interpreted the CT scan of the chest has a left lung mass) Radiology Impression Discussion of test interpretation with radiology: I have reviewed the radiologist's reading. Radiologist Impression: CT/CT chest wo IV con IMPRESSION: 1. Lobulated 4.8 x 4.3 x 4.2 cm in left lower lobe mass, highly suspicious for neoplasm. There is associated mediastinal lymphadenopathy, as described. 2. Atrophic right kidney with mild dilatation of the renal pelvis and ureter to the level of a urinary diversion. Findings are similar to the prior study and likely represent reflux. 3. Cirrhosis of the liver. 4. These findings were discussed with Dr. Hernandez in the emergency room on 03/01/2025 at 10:24 AM. Electronically signed by: Darrian Fernandez MD 03/01/2025 10:29 AM EDT Independent Historian Clinical information obtained from an independent historian. History obtained from or confirmed by: Spouse External Record Review External record reviewed: Inpatient record, Office record and Prior outpatient labs Chronic Conditions Patient?s care impacted by: Cancer bladder ca diverting urostomy Critical Care Time Critical Care Time Critical Care Time: Yes Total Critical Care Time: 60 Attestation: Urosepsis/metabolic acidosis Discharge Plan Discharge Clinical Impression: LUIS (acute kidney injury), Metabolic acidosis, Mass of left lung Sepsis Qualifiers: Sepsis type: sepsis due to unspecified organism Sepsis acute organ dysfunction status: with acute organ dysfunction Severe sepsis acute organ dysfunction type: acute renal failure Acute renal failure type: unspecified Severe sepsis shock status: without septic shock Qualified Code(s): A41.9 - Sepsis, unspecified organism Bladder cancer Qualifiers: Bladder location: unspecified site Qualified Code(s): C67.9 - Malignant neoplasm of bladder, unspecified Patient Disposition: Admitted As Inpatient Interventions: Admission Worksheet (ED) Last Done: 03/01/25 10:34
--- NOTE | 2025-03-01 08:11 | PC.NURSE ---
Pt comes to ED today reporting generally feeling unwell and weakness. VSS on arrival. A&Ox3 Skin is warm. Breaths and speech are even and unlabored. amf mechanic able to obtain one set of blood cultures and lactic lab Pt with poor vascularity--IV access attempts completed with no success. Request for u/s guided IV sent to Dr. Hernandez at 0736 with acknowledgment received. amf mechanic reports fever of 100.8--this reported to Dr. Hernandez at 0810. Awaiting u/s guided IV access at this time.
[2025-03-01 08:12] LABS: Appearance Urine Cloudy; Glucose Urine UA Negative (Negative); PH 6.5 (5.0-9.0); Specific Gravity - Urine 1.015 (1.005-1.025); UMIC TRIGGER UACC YES
[2025-03-01 08:19] LABS: UACC Culture Trigger YES
[2025-03-01] MEDS: Lactated Ringers 1,000 ML 999 ML IV (08:36)
[2025-03-01] MEDS: cefEPime HCl/D5W 2 GM/50 ML PIGGYBACK IV ×2 (08:37→13:14)
[2025-03-01 10:32] LABS: Osmolality, Serum 267 mosm/kg (281-305)
--- NOTE | 2025-03-01 10:35 | PHA.MEDREC ---
Addendum entered by Milo Broussard PharmD 03/01/25 10:42: reviewed Original Note: Pharmacy Consult ? Medication Reconciliation Pharmacy has completed the medication reconciliation. Spoke to patient and at bedside to confirm med list. Patient had all of his medication bottles with him. Patient states he is no longer taking Amlodipine 5 mg, Vitamin C 1,000mg, bisacodyl 10 mg, Methenamine tamela 1 gm, Omeprazole 20 mg. Patient last had his medications yesterday.
[2025-03-01 11:10] LABS: Venous Blood Gas Refer to POC result
[2025-03-01 11:11] LABS: VBG HCO3 12 mmol/L (22-26); VBG O2 % Saturation 100.0 %
--- NOTE | 2025-03-01 13:16 | PM.CNNEP ---
History of Present Illness Reason for Consult Consult date: 03/01/25 Chief Complaint Chief complaint: Sepsis/ uti History of Present Illness Narrative: 74 y/o male with a history of bladder CA (reports was diagnosed in 2019, had bladder removed that same year) with a diverting urostomy), denies other known medical history. 03/01 presented with generalized weakness, chills. WBC count elevated at 20 Nephrology consulted for LUIS, hyponatremia. creatinine 1.09 on 01/26, 03/01 is 1.48. serum bicarb is 13 sodium is 128, urine osm is 351, urine sodium is 65 platelet count is 121 (chronic thrombocytopenia since 2020). BP 107/43- has HTN at baseline per previous BP readings CT abdomen/pelvis: suspiscious lung mass. Atrophic right kidney with mild dilation of renal pelvis/ureter, likely represents reflux, liver cirrhosis, no bladder or prostate. patients reports he feels general malaise and chills. Otherwise denies complaints. States he has no other known medical history outside of the bladder cancer (per home med review he takes metformin, telmisartan and atorvastatin). States he does not take NSAIDs as he is allergic. States he has not started any new medication recently. He reports the output in his urostomy has been normal for him. Review of Systems Constitutional: Reports chills and Reports malaise Cardiovascular: Denies chest pain, Denies leg edema, Denies lightheadedness and Denies dyspnea Respiratory: Denies cough and Denies dyspnea Gastrointestinal: Denies abdominal pain, Denies constipation, Denies diarrhea, Denies nausea and Denies vomiting Genitourinary: Denies hematuria, Denies dysuria and Denies flank pain Musculoskeletal: Denies back pain, Denies arthralgias and Denies muscle cramps Skin/Breast: Denies rash Denies tremor(s) PMFSH Past Medical History Medical History HTN (hypertension) Acute hyponatremia Hydronephrosis Bladder cancer Asthma Diabetes Bladder cancer Incomplete emptying of bladder due to benign prostatic hyperplasia Complicated urinary tract infection Surgical History Surgical History History of surgery History of ileal conduit Social History Social History Are you a primary housekeeper caregiver to a significant other at home: No Do you presently have visiting nurse or other home services: No Alcohol intake: never Patient Tobacco Use Status: Never used Tobacco Advance Directives: No Advance Directives Information Provided: Yes service: No Current occupational status: retired Meds Allergies Allergy/AdvReac Type Severity Reaction Status Date / Time aspirin Allergy Unknown Verified 03/01/25 05:41 Beta-Blockers AdvReac Unknown Verified 03/01/25 05:41 (Beta-Adrenergic Bloc ibuprofen AdvReac Unknown Verified 03/01/25 05:41 Active Medications: Current Medications Cefepime HCl (Maxipime) 2 gm in 50 mls @ 100 mls/hr IV Q12H STEVEN Last Admin: 03/01/25 13:14 Dose: 100 mls/hr Home Medications ?Medication ?Instructions ?Recorded ?Confirmed ?Last Taken ?Type blood sugar diagnostic (FreeStyle #10 ea 04/18/21 01/05/24 Unknown History Lite Strips) montelukast 10 mg tablet 10 mg PO DAILY 04/18/21 03/01/25 02/28/25 History lancets 28 gauge (FreeStyle #100 ea 06/24/21 01/05/24 Unknown History Lancets) folic acid 1 mg tablet 1 mg PO DAILY 12/10/21 03/01/25 02/28/25 History albuterol sulfate 90 mcg/actuation 2 puff PO QID PRN Shortness Of 02/08/22 03/01/25 Unknown History aerosol inhaler Breath atorvastatin 20 mg tablet 20 mg PO DAILY 03/01/25 03/01/25 02/28/25 History ferrous sulfate 325 mg (65 mg 325 mg PO DAILY 03/01/25 03/01/25 02/28/25 History iron) tablet (iron) metformin 500 mg tablet 500 mg PO BID 03/01/25 03/01/25 02/28/25 History sitagliptin phosphate 50 mg tablet 50 mg PO DAILY 03/01/25 03/01/25 02/28/25 History (Januvia) telmisartan 20 mg tablet 20 mg PO DAILY 03/01/25 03/01/25 02/28/25 History vitamin B complex 1 tab PO DAILY 03/01/25 03/01/25 02/28/25 History Physical Exam Vital Signs: Last Vital Signs Temp 99.4 F 03/01/25 12:11 Pulse 87 03/01/25 12:11 Resp 24 H 03/01/25 12:11 BP 108/44 L 03/01/25 12:11 Pulse Ox 100 03/01/25 12:11 O2 Del Method Room Air 03/01/25 12:11 BMI result Body Mass Index 23.6 Const General: no acute distress, alert and awake Resp Effort & Inspection: normal respiratory effort and able to speak in complete sentences Auscultation: clear to auscultation bilaterally Cardio Palpation: normal PMI Rate: regular rate Rhythm: regular rhythm Heart sounds: S1 normal heart sound present and S2 normal heart sound present GI Palpation (GI): Soft to palpation and nontender Skin Rashes: no rashes Extrem General: No edema Results Lab Results 03/01/25 05:55 03/01/25 05:55 Lab results: Chemistry 03/01/25 05:55 Sodium 128 L Potassium 4.2 Carbon Dioxide 13 L BUN 22 H Creatinine 1.48 H Calcium 8.6 D Hematology 03/01/25 05:55 WBC 20.3 H Hgb 9.7 L Plt Count 121 L Urinalysis 03/01/25 08:05 Urine Color Yellow Urine Appearance Cloudy Urine pH 6.5 Ur Specific [place] 1.015 Urine Protein 100 (2+) H Urine Glucose (UA) Negative Urine Ketones Negative Urine Blood Small (1+) H Urine Nitrite Negative Ur Leukocyte Esterase Moderate (2+) H Urine RBC 0-2 Urine WBC 6-10 Ur Squamous Epith Cells 6-10 Hyaline Casts 6-10 Urine Studies 03/01/25 08:05 Urine Osmolality 351 L Assessment and Plan (1) LUIS (acute kidney injury): Status: Acute (2) Bladder cancer: Qualifiers: Bladder location: unspecified site Qualified Code(s): C67.9 - Malignant neoplasm of bladder, unspecified Status: Acute (3) Mass of left lung: Status: Acute Plan LUIS, new likely secondary to sepsis; agree with IVF given and antibiotics. 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 Recommend daily electrolyte and renal function studies recommend close I&O monitoring recommend avoiding nephrotoxins Continue supportive care Discussed with Dr Salvador Procedures Date of Service Date of Service: 03/01/25
[2025-03-01 16:31] LABS: Glucose, Whole Blood 158 mg/dL (60-115)
--- NOTE | 2025-03-01 16:36 | P.HPHOSP_ITS ---
History of Present Illness Date of Service: 03/01/25 Attending physician on admission: Vickey Story Chief Complaint: sepsis uti 74 years old male with PMH of asthma, diabetes, HLP, HTN, bladder cancer post resection and urostomy presented to ED for generalized weakness, chills, says he has similar symptoms when he has urinary infection. Otherwise denies any nausea vomiting diarrhea or abdominal pain. His urine bag has yellowish urine. He says he has some dry cough intermittent which is at baseline but no sputum , shortness of breaths or chest pain. Discussed with the ED: WBC 20.3, platelets 121, BUN 22/creatinine 1.48, sodium 128, bicarb is 13, anion gap normal, VBG pH is maintained 7.4. ctabd/chest in ed : 1. Lobulated 4.8 x 4.3 x 4.2 cm in left lower lobe mass, highly suspicious for neoplasm. There is associated mediastinal lymphadenopathy, as described. 2. Atrophic right kidney with mild dilatation of the renal pelvis and ureter to the level of a urinary diversion. Findings are similar to the prior study and likely represent reflux. 3. Cirrhosis of the liver. Patient received IV cefepime, Tylenol and IV fluid and requested admission for LUIS, sepsis likely due to UTI, and electrolytic abnormalities. Review of Systems 2 Review of Systems: As above. Yes all other systems are reviewed and are negative [facility] Medical History HTN (hypertension) Acute hyponatremia Hydronephrosis Bladder cancer Asthma Diabetes Bladder cancer Incomplete emptying of bladder due to benign prostatic hyperplasia Complicated urinary tract infection Surgical History History of surgery History of ileal conduit Social History Household Members: Family Housing: House Are you a primary coronary care unit nurse to a significant other at home: No Do you presently have visiting nurse or other home services: Yes Alcohol intake: never Patient Tobacco Use Status: Never used Tobacco Have you been hit, kicked, punched, or otherwise hurt by someone within the past year? If so, by whom?: No Do you feel safe in your current relationship?: Yes Is there a partner from a previous relationship who is making you feel unsafe now?: No Are you made to feel afraid or neglected: No Worship Healthcare Practices: Pt practices [employer] hindu and is a vegetarian. Advance Directives: No Advance Directives Information Provided: Yes Recently lost weight without trying: No Eating poorly because of decreased appetite: No Nutrition Risks: No Nutritional Risk Poor oral hygiene: No service: No Current occupational status: retired Meds Allergies Allergy/AdvReac Type Severity Reaction Status Date / Time aspirin Allergy Unknown Verified 03/01/25 05:41 Beta-Blockers AdvReac Unknown Verified 03/01/25 05:41 (Beta-Adrenergic Bloc ibuprofen AdvReac Unknown Verified 03/01/25 05:41 Active Medications: Current Medications Albuterol Sulfate (Albuterol Sulfate 90 Mcg 8 Gm Inhaler) 2 puff INHALE QID PRN PRN Reason: Shortness of Breath Atorvastatin Calcium (Atorvastatin Calcium 20 Mg Tablet) 20 mg PO DAILY REPLACED BY [facility] Dextrose (Dextrose 50 % 25 Gm/50 Ml Syringe) 25 gm IVPUSH Q15M PRN; Protocol PRN Reason: per Hypoglycemia Standing Ord. Ferrous Sulfate (Ferrous Sulfate 324 Mg Tablet.Dr) 324 mg PO DAILY REPLACED BY [facility] Fluticasone/Vilanterol (Fluticasone/Vilanterol 200/25 Blst.W.Dev) 1 puff INHALE RDAILY REPLACED BY [facility] Last Admin: 03/01/25 16:10 Dose: Not Given Folic Acid (Folic Acid 1 Mg Tablet) 1 mg PO DAILY REPLACED BY [facility] Glucose (Glucose Gel 15 Gm Gel..Gram.) 15 gm PO Q15M PRN; Protocol PRN Reason: per Hypoglycemia Standing Ord. Cefepime HCl (Maxipime) 2 gm in 50 mls @ 100 mls/hr IV Q12H REPLACED BY [facility] Last Infusion: 03/01/25 16:11 Dose: Infused Insulin Human Lispro (Insulin Lispro 100 Unit/Ml 3 Ml Vial) 0 unit SUBCUT QIDACHS REPLACED BY [facility]; Protocol Montelukast Sodium (Montelukast Sodium 10 Mg Tablet) 10 mg PO DAILY REPLACED BY [facility] Multivitamins/Vitamin C (Multivitamin Tablet) 1 tab PO DAILY REPLACED BY [facility] Valsartan (Valsartan 40 Mg Tablet) 40 mg PO DAILY REPLACED BY [facility] Home Medications ?Medication ?Instructions ?Recorded ?Confirmed ?Last Taken ?Type blood sugar diagnostic (Matthew #10 ea 04/18/2112/09 Unknown History Lite Strips) montelukast 10 mg tablet 10 mg PO DAILY 04/18/2102/0802/28/25 History lancets 28 gauge (FreeStyle #100 ea 06/24/21 01/05/24 Unknown History Lancets) folic acid 1 mg tablet 1 mg PO DAILY 12/10/2103/0102/28/25 History albuterol sulfate 90 mcg/actuation 2 puff PO QID PRN S hortness Of 02/08/22 03/01/25 Unknown History aerosol inhaler Breath atorvastatin 20 mg tablet 20 mg PO DAILY 03/01/2502/0802/28/25 History ferrous sulfate 325 mg (65 mg 325 mg PO DAILY 03/01/25 03/01/25 02/28/25 History iron) tablet (iron) metformin 500 mg tablet 500 mg PO BID 03/01/2503/0102/28/25 History sitagliptin phosphate 50 mg tablet 50 mg PO DAILY 02/0803/01/25 02/28/25 History (Januvia) telmisartan 20 mg tablet 20 mg PO DAILY 03/01/2502/0802/28/25 History vitamin B complex 1 tab PO DAILY 03/01/2502/0802/28/25 History Physical Exam 2 Vital Signs and Narrative: Vital Signs: Last Vital Signs Temp 98.8 F 03/01/25 15:33 Pulse 90 03/01/25 15:33 Resp 16 03/01/25 15:33 BP 116/53 L 03/01/25 15:33 Pulse Ox 100 03/01/25 15:33 O2 Del Method Room Air 03/01/25 15:33 BMI result Body Mass Index 25.3 Appearance: Alert.? Oriented X3.? cvs: rrr, [id number] . res: air entry fair ,slightly diminshed at left side. abd: no rebound or guarding ,nt, bs present. : Has urostomy bag-yellowish urine. ext pulses present , no cyanosis . neuro: axo3 , nonfocal. Results Labs 03/01/25 05:55 03/01/25 05:55 Labs: Laboratory Results - last 24 hr 03/01/25 03/01/25 03/01/25 05:55 07:34 08:05 MCV 94.9 MCH 33.1 H MCHC 34.9 RDW 13.4 Plt Count 121 L MPV 9.8 Absolute Nucleated RBC 0.000 Nucleated RBC % (auto) 0.0 VBG pH VBG pCO2 VBG pO2 VBG HCO3 VBG O2 Saturation VBG Base Excess Anion Gap 12 Estim Creat Clear Calc 32.7 Estimated GFR 46 POC Glucose Random Glucose 183 H Osmolality Lactic Acid 2.0 Calcium 8.6 D Total Bilirubin 1.0 AST 53 H ALT 34 Alkaline Phosphatase 268 H Total Protein 7.1 Albumin 3.6 Urine Color Yellow Urine Appearance Cloudy Urine pH 6.5 Ur Specific [place] 1.015 Urine Protein 100 (2+) H Urine Glucose (UA) Negative Urine Ketones Negative Urine Blood Small (1+) H Urine Nitrite Negative Ur Leukocyte Esterase Moderate (2+) H Urine RBC 0-2 Urine WBC 6-10 Ur Squamous Epith Cells 6-10 Urine Bacteria 3+ Hyaline Casts 6-10 Urine Osmolality 351 L Ur Random Sodium 65.0 Ur Random Potassium 18.9 Ur Random Chloride 50.0 Influenza Type A (PCR) NEGATIVE Influenza Type B (PCR) NEGATIVE RSV RNA Qual (PCR) NEGATIVE SARS-CoV-2 RNA (RT-PCR) NEGATIVE 03/01/25 03/01/25 03/01/25 10:01 11:06 16:28 MCV MCH MCHC RDW Plt Count MPV Absolute Nucleated RBC Nucleated RBC % (auto) VBG pH 7.41 VBG pCO2 18 VBG pO2 155 VBG HCO3 12 L VBG O2 Saturation 100.0 VBG Base Excess -10.5 Anion Gap Estim Creat Clear Calc Estimated GFR POC Glucose 158 H Random Glucose Osmolality 267 L Lactic Acid Calcium Total Bilirubin AST ALT Alkaline Phosphatase Total Protein Albumin Urine Color Urine Appearance Urine pH Ur Specific [place] Urine Protein Urine Glucose (UA) Urine Ketones Urine Blood Urine Nitrite Ur Leukocyte Esterase Urine RBC Urine WBC Ur Squamous Epith Cells Urine Bacteria Hyaline Casts Urine Osmolality Ur Random Sodium Ur Random Potassium Ur Random Chloride Influenza Type A (PCR) Influenza Type B (PCR) RSV RNA Qual (PCR) SARS-CoV-2 RNA (RT-PCR) Imaging Radiologist's Impressions: Impressions Chest X-Ray 03/01/25 06:38 IMPRESSION: Questionable airspace disease, left lower lung lobe/retrocardiac. Electronically signed by: Farhad Johnson MD 03/01/2025 07:53 AM EDT RP Abdomen/Pelvis CT 03/01/25 08:44 IMPRESSION: 1. Lobulated 4.8 x 4.3 x 4.2 cm in left lower lobe mass, highly suspicious for neoplasm. There is associated mediastinal lymphadenopathy, as described. 2. Atrophic right kidney with mild dilatation of the renal pelvis and ureter to the level of a urinary diversion. Findings are similar to the prior study and likely represent reflux. 3. Cirrhosis of the liver. Chest CT 03/01/25 08:44 IMPRESSION: 1. Lobulated 4.8 x 4.3 x 4.2 cm in left lower lobe mass, highly suspicious for neoplasm. There is associated mediastinal lymphadenopathy, as described. 2. Atrophic right kidney with mild dilatation of the renal pelvis and ureter to the level of a urinary diversion. Findings are similar to the prior study and likely represent reflux. 3. Cirrhosis of the liver. Assessment and Plan (1) LUIS (acute kidney injury): Status: Acute (2) Metabolic acidosis: Status: Acute (3) Sepsis: Qualifiers: Acute renal failure type: unspecified Sepsis acute organ dysfunction status: with acute organ dysfunction Sepsis type: sepsis due to unspecified organism Severe sepsis acute organ dysfunction type: acute renal failure S evere sepsis shock status: without septic shock Qualified Code(s): A41.9 - Sepsis, unspecified organism; R65.20 - Severe sepsis without septic shock; N17.9 - Acute kidney failure, unspecified Status: Acute Plan 74 years old male with PMH of asthma, diabetes, HLP, HTN, bladder cancer post resection and urostomy presented to ED for generalized weakness, chills, says he has similar symptoms when he has urinary infection. Sepsis secondary to suspected UTI: Patient meets sepsis criteria secondary to leukocytosis, tachycardia Has low-grade fever of 100.8 Platelets are low chronically not due to sepsis, in addition LFT chronically elevated also, LUIS is related to decreased p.o. intake and dehydration not due to sepsis. Lactic acid is 2, blood cultures sent, urine cultures sent. plan: Continue cefepime, follow cultures Patient has new lung mass on CT chest, pulmonary evaluation added. Hyponatremia His sodium fluctuate serum osmolality is lower than the urine osmolality(? Lung mass related) Nephrology evaluation, repeat BMP Mild elevated LFTs chronically elevated, CT abdomen shows possible liver cirrhosis: Patient says never drink alcohol, will check hepatitis profile LFTs monitoring. Non-anion gap Metabolic acidosis PH normal bicarb is 13 None anion gap, lactic acid negative Patient got IV fluids in the ED, we will repeat BMP Type 2 diabetes continue SSI diabetic diet Asthma(mild intermittent): Continue home medication DVT prophylaxis: SCD due to anemia/ thrombocytopenia. Above management discussed with the patient and his at bedside in detail length they both understand and in agreement with the above plan, time spent 70 minute, patient is full code. Patient will benefit from at least 2 midnight stay considering sepsis secondary to UTI, LUIS, multiple electrolytic abnormalities as above: Patient needs to be on IV antibiotic ,electrolyte monitoring, possible nephrology workup. Quality Stroke Does the patient have a stroke diagnosis?: No VTE Prior VTE?: No VTE Risk Level:: Medical - moderate - high VTE Device Contraindication: N/A - Device Ordered VTE Drug Contraindication: N/A - Med Ordered
[2025-03-01 17:07] LABS: Anion Gap 11 (12-20); Blood Urea Nitrogen 24 mg/dL (9-16); Calcium 8.3 mg/dL (8.4-10.2); Carbon Dioxide 13 mmol/L (22-29); Chloride 108 mmol/L (96-108); Creatinine Clr Calc Pharmacy 35.9; Estimated Glomerular Filt Rate 51; Potassium 3.7 mmol/L (3.3-5.1); Sodium 128 mmol/L (135-145)
[2025-03-01 20:22] LABS: Glucose, Whole Blood 148 mg/dL (60-115)
[2025-03-02] VITALS (7 sets, daily range): BP systolic 116–152; BP diastolic 59–68; PULSE 71–91; RESP 16–18; TEMP 36.1–37.9; O2SAT 100
[2025-03-02] MEDS: cefEPime HCl/D5W 2 GM/50 ML PIGGYBACK IV (01:45)
[2025-03-02 06:33] LABS: Hematocrit 28.4 % (42.0-52.0); Hemoglobin 9.9 g/dl (14.0-18.0); Mean Corpuscular HGB Conc 34.9 g/dl (31.0-36.0); Mean Corpuscular Hemoglobin 32.7 pg (27.0-33.0); Mean Corpuscular Volume 93.7 fL (80.0-98.0); NRBC Abs Auto 0.000 X10*3/uL (0.0-0.012); NRBC Pct Auto 0.0 /100WBC (0.0-0.2); Platelet Count 121 X10*3/uL (160-400); Red Blood Count 3.03 X10*6/uL (4.60-5.80); White Blood Count 19.6 X10*3/uL (4.8-10.8)
--- NOTE | 2025-03-02 06:41 | PM.EVENT ---
Event Note Date of Service: 03/02/25 Event Note: Nurse reported hematuria. Consulting Urology Time Spent With Patient Time: Total time managing care of this patient today ____ minutes.
[2025-03-02 06:48] LABS: Alanine Aminotransferase 30 U/L (0-40); Albumin Level 3.4 g/dL (3.5-5.0); Alkaline Phosphatase 236 U/L (39-117); Anion Gap 13 (12-20); Aspartate Amino Transferase 37 U/L (5-37); Blood Urea Nitrogen 26 mg/dL (9-16); Calcium 8.6 mg/dL (8.4-10.2); Carbon Dioxide 14 mmol/L (22-29); Chloride 104 mmol/L (96-108); Creatinine Clr Calc Pharmacy 35.1; Estimated Glomerular Filt Rate 50; Potassium 3.6 mmol/L (3.3-5.1); Sodium 127 mmol/L (135-145); Total Protein 7.1 g/dL (6.5-8.0)
[2025-03-02 07:31] LABS: Glucose, Whole Blood 215 mg/dL (60-115)
[2025-03-02] MEDS: Fluticasone/Vilanterol 200/25 BLST.W.DEV 1 PUFF INHALE (07:35)
[2025-03-02 08:00] LABS: HBS Num1 0.04 mIU/mL (0-7.99); HBc Num1 0.16 S/CO (0.00-0.79); HBsAGNum1 0.31 S/CO (0.00-0.99); Hepatitis A Antibody IgM 0.30 Index (0-0.79); Hepatitis B Surface Antigen Negative (Negative); ~HepC Num1 0.12 S/CO (0.00-0.79); ~Hepatitis A Antibody IgM Nonreactive (Nonreactive); ~Hepatitis B Surface Antibody NONREACTIVE (Nonreactive); ~Hepatitis C Antibody Nonreactive (Nonreactive)
[2025-03-02] MEDS: Ferrous Sulfate 324 MG TABLET.DR PO (08:46)
--- NOTE | 2025-03-02 09:08 | MHC.CM.PN ---
CM met with Patient and his at bedside. Patient lives in a house with his , Son, [id number] and Grandchildren. 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 PCP is Dr. Hilary Jimenez, Patient's family will transport to home at time of dc.
--- NOTE | 2025-03-02 09:55 | P.PNNP_ITS ---
Subjective Subjective Date of Service: 03/02/25 Interval history: Patient here with generalized weakness, chills, sepsis likely UTI. Following for LUIS, hyponatremia. Patient reports he is feeling some improvement form yesterday but still chilly and tired. Denies abdominal/flank pain, chest pain, shortness of breath. Denies new concerns/complaints. Physical Exam 2 Vital Signs: Vital Signs: Last Vital Signs Temp 97.3 F 03/02/25 08:00 Pulse 71 03/02/25 08:00 Resp 18 03/02/25 08:00 BP 130/60 03/02/25 08:00 Pulse Ox 100 03/02/25 04:00 O2 Del Method Room Air 03/02/25 08:00 BMI result Body Mass Index 25.3 Const: General: no acute distress, alert and awake Resp: Effort & Inspection: normal respiratory effort and able to speak in complete sentences Auscultation: clear to auscultation bilaterally Cardio: Palpation: normal PMI Rate: regular rate Rhythm: regular rhythm Heart sounds: S1 normal heart sound present and S2 normal heart sound present GI: Palpation (GI): Soft to palpation and nontender Skin: Rashes: no rashes Extrem: General: No edema Objective Data Labs 03/02/25 06:08 03/02/25 06:08 Labs: Laboratory Results - last 24 hr 03/01/25 03/01/25 03/01/25 08:05 10:01 11:06 WBC RBC Hgb Hct MCV MCH MCHC RDW Plt Count MPV Absolute Nucleated RBC Nucleated RBC % (auto) VBG pH 7.41 VBG pCO2 18 VBG pO2 155 VBG HCO3 12 L VBG O2 Saturation 100.0 VBG Base Excess -10.5 Sodium Potassium Chloride Carbon Dioxide Anion Gap BUN Creatinine Estim Creat Clear Calc Estimated GFR POC Glucose Random Glucose Osmolality 267 L Calcium Total Bilirubin AST ALT Alkaline Phosphatase Total Protein Albumin Urine Osmolality 351 L Ur Random Sodium 65.0 Ur Random Potassium 18.9 Ur Random Chloride 50.0 Hepatitis A IgM Ab Hep Bs Antigen Hep Bs Antibody Hep B Core Total Ab Hepatitis C Ab (EIA) 03/01/25 03/01/25 03/01/25 16:28 16:53 20:15 WBC RBC Hgb Hct MCV MCH MCHC RDW Plt Count MPV Absolute Nucleated RBC Nucleated RBC % (auto) VBG pH VBG pCO2 VBG pO2 VBG HCO3 VBG O2 Saturation VBG Base Excess Sodium 128 L Potassium 3.7 Chloride 108 Carbon Dioxide 13 L Anion Gap 11 L BUN 24 H Creatinine 1.35 Estim Creat Clear Calc 35.9 Estimated GFR 51 POC Glucose 158 H 148 H Random Glucose 162 H Osmolality Calcium 8.3 L Total Bilirubin AST ALT Alkaline Phosphatase Total Protein Albumin Urine Osmolality Ur Random Sodium Ur Random Potassium Ur Random Chloride Hepatitis A IgM Ab Hep Bs Antigen Hep Bs Antibody Hep B Core Total Ab Hepatitis C Ab (EIA) 03/02/25 03/02/25 06:08 07:21 WBC 19.6 H RBC 3.03 L Hgb 9.9 L Hct 28.4 L MCV 93.7 MCH 32.7 MCHC 34.9 RDW 13.6 Plt Count 121 L MPV 10.7 Absolute Nucleated RBC 0.000 Nucleated RBC % (auto) 0.0 VBG pH VBG pCO2 VBG pO2 VBG HCO3 VBG O2 Saturation VBG Base Excess Sodium 127 L Potassium 3.6 Chloride 104 Carbon Dioxide 14 L Anion Gap 13 BUN 26 H Creatinine 1.38 Estim Creat Clear Calc 35.1 Estimated GFR 50 POC Glucose 215 H Random Glucose 182 H Osmolality Calcium 8.6 Total Bilirubin 1.2 H AST 37 ALT 30 Alkaline Phosphatase 236 H Total Protein 7.1 Albumin 3.4 L Urine Osmolality Ur Random Sodium Ur Random Potassium Ur Random Chloride Hepatitis A IgM Ab Nonreactive Hep Bs Antigen Negative Hep Bs Antibody NONREACTIVE Hep B Core Total Ab Nonreactive Hepatitis C Ab (EIA) Nonreactive Microbiology Microbiology Results: Microbiology 03/01/25 07:34 Blood - Venous Blood Culture - Preliminary No growth after 24 hours. Procedures Date of Service Date of Service: 03/02/25 Assessment & Plan Assessment and plan (1) LUIS (acute kidney injury): Status: Acute (2) Sepsis: Status: Acute (3) Mass of left lung: Status: Acute (4) Hyponatremia: Status: Acute Plan LUIS, improving. likely secondary to sepsis; continue antibiotics. NS has been started- recommend limiting to 1L of IVF today. hyponatremia, mild, likely secondary to SIADH from pulmonary process given elevated urine sodium. recommend treating underlying pulmonary process and 1.5L/24hr oral fluid restriction. Recommend daily electrolyte and renal function studies recommend close I&O monitoring recommend avoiding nephrotoxins Continue supportive care Discussed with Dr Franco Time Spent With Patient Time: Total time managing care of this patient today ____ minutes. Progress Note: Quality Stroke Does the patient have a stroke diagnosis?: No
[2025-03-02 11:09] LABS: Glucose, Whole Blood 183 mg/dL (60-115)
--- NOTE | 2025-03-02 12:19 | P.CONPL_ITS ---
History of Present Illness History of Present Illness Consult date: 03/02/25 Reason for consult: abnormal CXR/CT Chief complaint: Abnormal CT scan of the chest Narrative: 74-year-old gentleman, nonsmoker, these underlying asthma, hypotension, bladder cancer status post resection/urostomy admitted on 03/01/2025 with malaise likely secondary to UTI. ER workup included CT of the chest that showed left-sided mass like density for which pulmonary evaluation was requested. Patient denies prior family or personal history of lung disease except asthma. He denies exposure to industrial dusts. He denies any pulmonary related concerns or complaints. Review of Systems 2 Constitutional: Constitutional: Denies daytime sleepiness, Denies excessive sweating, Denies fatigue, Denies fever(s), Denies lethargy, Denies malaise, Denies night sweats, Denies snoring and Denies weight loss Eyes: Eyes: Denies blurry vision and Denies itchy eyes ENT: Denies nasal congestion, Denies post nasal drip, Denies sinus pain, Denies sinus pressure and Denies other ( Thrush) Cardiovascular: Cardiovascular: Denies chest pain, Denies pedal edema, Denies dyspnea, Denies orthopnea and Denies paroxysmal nocturnal dyspnea Respiratory: Respiratory: Denies cough, Denies hemoptysis, Denies excessive phlegm production, Denies dyspnea, Denies snoring and Denies wheezing Gastrointestinal: Gastrointestinal: Denies abdominal pain and Denies heartburn Musculoskeletal: Musculoskeletal: Denies myalgias, Denies arthralgias and Denies joint swelling Integumentary/Breasts: Skin/Breast: Denies rash Neurologic: Denies memory loss and Denies seizure-like activity Psychiatric: Psychiatric: Denies abnormal sleep pattern, Denies anxiety and Denies memory loss Endocrine: Endocrine: Denies excessive sweating, Denies fatigue and Denies heat intolerance Hematologic/Lymphatic: Hematologic/Lymphatic: Denies easy bruising Allergic/Immunologic: Allergic/Immunologic: Denies itchy eyes, Denies seasonal rhinorrhea and Denies wheezing PMFSH Past Medical History Medical History HTN (hypertension) Acute hyponatremia Hydronephrosis Bladder cancer Asthma Diabetes Bladder cancer Incomplete emptying of bladder due to benign prostatic hyperplasia Complicated urinary tract infection Surgical History Surgical History History of surgery History of ileal conduit Social History Social History Household Members: Family Housing: House Are you a primary career resource technician to a significant other at home: No Do you presently have visiting nurse or other home services: Yes Alcohol intake: never Patient Tobacco Use Status: Never used Tobacco Currently Displaying Signs/Symptoms of Drug Intoxication Withdrawal: No Have you been hit, kicked, punched, or otherwise hurt by someone within the past year? If so, by whom?: No Do you feel safe in your current relationship?: Yes Is there a partner from a previous relationship who is making you feel unsafe now?: No Are you made to feel afraid or neglected: No Jain Healthcare Practices: Pt practices Christianity anabaptist and is a vegetarian. Advance Directives: No Advance Directives Information Provided: Yes Recently lost weight without trying: No Eating poorly because of decreased appetite: No Nutrition Risks: No Nutritional Risk Poor oral hygiene: No service: No Current occupational status: retired Meds Allergies Allergy/AdvReac Type Severity Reaction Status Date / Time aspirin Allergy Unknown Verified 03/01/25 05:41 Beta-Blockers AdvReac Unknown Verified 03/01/25 05:41 (Beta-Adrenergic Bloc ibuprofen AdvReac Unknown Verified 03/01/25 05:41 Active Medications: Current Medications Acetaminophen (Acetaminophen 325 Mg Tablet) 650 mg PO Q6H PRN PRN Reason: Pain, Mild 1-3,fever,headache Last Admin: 03/02/25 03:26 Dose: 650 mg Albuterol Sulfate (Albuterol Sulfate 90 Mcg 8 Gm Inhaler) 2 puff INHALE QID PRN PRN Reason: Shortness of Breath Atorvastatin Calcium (Atorvastatin Calcium 20 Mg Tablet) 20 mg PO DAILY [facility] Last Admin: 03/02/25 08:46 Dose: 20 mg Dextrose (Dextrose 50 % 25 Gm/50 Ml Syringe) 25 gm IVPUSH Q15M PRN; Protocol PRN Reason: per Hypoglycemia Standing Ord. Ferrous Sulfate (Ferrous Sulfate 324 Mg Tablet.Dr) 324 mg PO DAILY [facility] Last Admin: 03/02/25 08:46 Dose: 324 mg Fluticasone/Vilanterol (Fluticasone/Vilanterol 200/25 Blst.W.Dev) 1 puff INHALE RDAILY [facility] Last Admin: 03/02/25 07:35 Dose: 1 puff Folic Acid (Folic Acid 1 Mg Tablet) 1 mg PO DAILY [facility] Last Admin: 03/02/25 08:46 Dose: 1 mg Glucose (Glucose Gel 15 Gm Gel..Gram.) 15 gm PO Q15M PRN; Protocol PRN Reason: per Hypoglycemia Standing Ord. Sodium Chloride (Ns) 1,000 mls @ 100 mls/hr IVCONT .Q10H [facility] Last Admin: 03/02/25 08:46 Dose: 100 mls/hr Cefepime HCl 1 gm/ Sodium (Chloride) 50 mls @ 100 mls/hr IV Q12H [facility] Last Admin: 03/02/25 11:55 Dose: 100 mls/hr Insulin Human Lispro (Insulin Lispro 100 Unit/Ml 3 Ml Vial) 0 unit SUBCUT QIDACHS [facility]; Protocol Last Admin: 03/02/25 11:54 Dose: 2 unit Montelukast Sodium (Montelukast Sodium 10 Mg Tablet) 10 mg PO DAILY [facility] Last Admin: 03/02/25 08:46 Dose: 10 mg Multivitamins/Vitamin C (Multivitamin Tablet) 1 tab PO DAILY [facility] Last Admin: 03/02/25 08:46 Dose: 1 tab Valsartan (Valsartan 40 Mg Tablet) 40 mg PO DAILY [facility] Last Admin: 03/02/25 08:55 Dose: Not Given Home Medications ?Medication ?Instructions ?Recorded ?Confirmed ?Last Taken ?Type blood sugar diagnostic (FreeStyle #10 ea 04/18/2112/09 Unknown History Lite Strips) montelukast 10 mg tablet 10 mg PO DAILY 04/18/2102/0802/28/25 History lancets 28 gauge (FreeStyle #100 ea 06/24/21 01/05/24 Unknown History Lancets) folic acid 1 mg tablet 1 mg PO DAILY 12/10/2103/0102/28/25 History albuterol sulfate 90 mcg/actuation 2 puff PO QID PRN S hortness Of 02/08/22 03/01/25 Unknown History aerosol inhaler Breath atorvastatin 20 mg tablet 20 mg PO DAILY 03/01/2502/0802/28/25 History ferrous sulfate 325 mg (65 mg 325 mg PO DAILY 03/01/25 03/01/25 02/28/25 History iron) tablet (iron) metformin 500 mg tablet 500 mg PO BID 03/01/2503/0102/28/25 History sitagliptin phosphate 50 mg tablet 50 mg PO DAILY 02/0803/01/25 02/28/25 History (Januvia) telmisartan 20 mg tablet 20 mg PO DAILY 03/01/2502/0802/28/25 History vitamin B complex 1 tab PO DAILY 03/01/2502/0802/28/25 History Physical Exam 2 Vital Signs: Vital Signs: Last Vital Signs Temp 97.0 F 03/02/25 11:55 Pulse 90 03/02/25 11:55 Resp 18 03/02/25 11:55 BP 152/68 H 03/02/25 11:55 Pulse Ox 100 03/02/25 11:55 O2 Del Method Room Air 03/02/25 11:55 BMI result Body Mass Index 25.3 Const: General: no acute distress and alert Nutritional Appearance: not obese Orientation/consciousness: Other orientation findings ( oriented) HEENT: Head: Yes atraumatic Eyes: General: appearance normal, both eyes and all related structures S clerae: sclerae normal EOM: EOMs intact bilaterally Neck: Neck: Yes supple Lymphatic: no lymphadenopathy noted Resp: Effort & Inspection: normal respiratory effort and no use of accessory muscles Auscultation: clear to auscultation bilaterally Cardio: Rate: regular rate Rhythm: regular rhythm Heart sounds: no gallops, no murmurs and no rubs Skin: General skin exam: other ( warm) Extrem: General: No clubbing, No cyanosis and No edema Results Laboratory Findings 03/02/25 06:08 03/02/25 06:08 Abnormal lab findings: Abnormal Labs 03/01/25 03/01/25 03/01/25 05:55 08:05 10:01 WBC 20.3 H RBC 2.93 L Hgb 9.7 L Hct 27.8 L MCH 33.1 H Plt Count 121 L VBG HCO3 Sodium 128 L Carbon Dioxide 13 L Anion Gap BUN 22 H Creatinine 1.48 H POC Glucose Random Glucose 183 H Osmolality 267 L Calcium Total Bilirubin AST 53 H Alkaline Phosphatase 268 H Albumin Urine Protein 100 (2+) H Urine Blood Small (1+) H Ur Leukocyte Esterase Moderate (2+) H Urine Osmolality 351 L 03/01/25 03/01/25 03/01/25 11:06 16:28 16:53 WBC RBC Hgb Hct MCH Plt Count VBG HCO3 12 L Sodium 128 L Carbon Dioxide 13 L Anion Gap 11 L BUN 24 H Creatinine POC Glucose 158 H Random Glucose 162 H Osmolality Calcium 8.3 L Total Bilirubin AST Alkaline Phosphatase Albumin Urine Protein Urine Blood Ur Leukocyte Esterase Urine Osmolality 03/01/25 03/02/25 03/02/25 20:15 06:08 07:21 WBC 19.6 H RBC 3.03 L Hgb 9.9 L Hct 28.4 L MCH Plt Count 121 L VBG HCO3 Sodium 127 L Carbon Dioxide 14 L Anion Gap BUN 26 H Creatinine POC Glucose 148 H 215 H Random Glucose 182 H Osmolality Calcium Total Bilirubin 1.2 H AST Alkaline Phosphatase 236 H Albumin 3.4 L Urine Protein Urine Blood Ur Leukocyte Esterase Urine Osmolality 03/02/25 11:04 WBC RBC Hgb Hct MCH Plt Count VBG HCO3 Sodium Carbon Dioxide Anion Gap BUN Creatinine POC Glucose 183 H Random Glucose Osmolality Calcium Total Bilirubin AST Alkaline Phosphatase Albumin Urine Protein Urine Blood Ur Leukocyte Esterase Urine Osmolality Microbiology: Microbiology 03/01/25 Unknown Urine Other - Suprapubic Urine Culture - Preliminary Culture in progress. 03/01/25 08:31 Blood - Venous Blood Culture - Preliminary No growth after 24 hours. 03/01/25 07:34 Blood - Venous Blood Culture - Preliminary No growth after 24 hours. Assessment and Plan (1) Abnormal CT scan, chest: Status: Acute (2) Mass of left lung: Status: Acute Plan Impression: 74-year-old gentleman nonsmoker, with prior history of prostate cancer status post resection, now noted to have left lower lobe masslike density. He did have at scan in [place] in July of 2024 that did not demonstrate any pulmonary masses at that time. Unclear etiology of imaging findings, though malignancy is definitely not excluded. Recommendation: Repeat CT chest in 6-8 weeks and proceed with pulmonary outpatient follow-up. Procedures Date of Service Date of Service: 03/02/25
--- NOTE | 2025-03-02 15:13 | P.PNIM_ITS ---
Subjective Subjective Date of Service: 03/02/25 Interval History: hematuria ?lung mass uti Review of Systems no new fever or chills no new c/o Review of Systems: Yes all other systems are reviewed and are negative Physical Exam 2 Exam: Exam: Appearance: Alert.? Oriented X3.? cvs: rrr, [id number] . res: air entry fair ,slightly diminshed at left side. abd: no rebound or guarding ,nt, bs present. : Has urostomy bag-yellowish urine. ext pulses present , no cyanosis . neuro: axo3 , nonfocal. Vital Signs: Vital Signs: Last Vital Signs Temp 97.0 F 03/02/25 11:55 Pulse 90 03/02/25 11:55 Resp 18 03/02/25 11:55 BP 152/68 H 03/02/25 11:55 Pulse Ox 100 03/02/25 11:55 O2 Del Method Room Air 03/02/25 11:55 BMI result Body Mass Index 25.3 Objective Data Active Medications Acetaminophen (Acetaminophen 325 Mg Tablet) 650 mg PO Q6H PRN PRN Reason: Pain, Mild 1-3,fever,headache Last Admin: 03/02/25 03:26 Dose: 650 mg Documented By: JOSE Albuterol Sulfate (Albuterol Sulfate 90 Mcg 8 Gm Inhaler) 2 puff INHALE QID PRN PRN Reason: Shortness of Breath Atorvastatin Calcium (Atorvastatin Calcium 20 Mg Tablet) 20 mg PO DAILY [facility] Last Admin: 03/02/25 08:46 Dose: 20 mg Documented By: DEBI Dextrose (Dextrose 50 % 25 Gm/50 Ml Syringe) 25 gm IVPUSH Q15M PRN; Protocol PRN Reason: per Hypoglycemia Standing Ord. Ferrous Sulfate (Ferrous Sulfate 324 Mg Tablet.) 324 mg PO DAILY [facility] Last Admin: 03/02/25 08:46 Dose: 324 mg Documented By: DEBI Fluticasone/Vilanterol (Fluticasone/Vilanterol 200/25 Blst.W.Dev) 1 puff INHALE RDAILY [facility] Last Admin: 03/02/25 07:35 Dose: 1 puff Documented By: DUC Folic Acid (Folic Acid 1 Mg Tablet) 1 mg PO DAILY [facility] Last Admin: 03/02/25 08:46 Dose: 1 mg Documented By: DEBI Glucose (Glucose Gel 15 Gm Gel..Gram.) 15 gm PO Q15M PRN; Protocol PRN Reason: per Hypoglycemia Standing Ord. Sodium Chloride (Ns) 1,000 mls @ 100 mls/hr IVCONT .Q10H [facility] Last Admin: 03/02/25 08:46 Dose: 100 mls/hr Documented By: DEBI Cefepime HCl 1 gm/ Sodium (Chloride) 50 mls @ 100 mls/hr IV Q12H [facility] Last Infusion: 03/02/25 12:25 Dose: Infused Documented By: DEBI Insulin Human Lispro (Insulin Lispro 100 Unit/Ml 3 Ml Vial) 0 unit SUBCUT QIDACHS [facility]; Protocol Last Admin: 03/02/25 11:54 Dose: 2 unit Documented By: DEBI Montelukast Sodium (Montelukast Sodium 10 Mg Tablet) 10 mg PO DAILY [facility] Last Admin: 03/02/25 08:46 Dose: 10 mg Documented By: DEBI Multivitamins/Vitamin C (Multivitamin Tablet) 1 tab PO DAILY [facility] Last Admin: 03/02/25 08:46 Dose: 1 tab Documented By: DEBI Valsartan (Valsartan 40 Mg Tablet) 40 mg PO DAILY [facility] Last Admin: 03/02/25 08:55 Dose: Not Given Documented By: DEBI Non-Admin Reason: Physician Held Med Labs 03/02/25 06:08 03/02/25 06:08 Labs: Laboratory Results - last 24 hr 03/01/25 03/01/25 03/01/25 16:28 16:53 20:15 MCV MCH MCHC RDW Plt Count MPV Absolute Nucleated RBC Nucleated RBC % (auto) Anion Gap 11 L Estim Creat Clear Calc 35.9 Estimated GFR 51 POC Glucose 158 H 148 H Random Glucose 162 H Calcium 8.3 L Total Bilirubin AST ALT Alkaline Phosphatase Total Protein Albumin Hepatitis A IgM Ab Hep Bs Antigen Hep Bs Antibody Hep B Core Total Ab Hepatitis C Ab (EIA) 03/02/25 03/02/25 03/02/25 06:08 07:21 11:04 MCV 93.7 MCH 32.7 MCHC 34.9 RDW 13.6 Plt Count 121 L MPV 10.7 Absolute Nucleated RBC 0.000 Nucleated RBC % (auto) 0.0 Anion Gap 13 Estim Creat Clear Calc 35.1 Estimated GFR 50 POC Glucose 215 H 183 H Random Glucose 182 H Calcium 8.6 Total Bilirubin 1.2 H AST 37 ALT 30 Alkaline Phosphatase 236 H Total Protein 7.1 Albumin 3.4 L Hepatitis A IgM Ab Nonreactive Hep Bs Antigen Negative Hep Bs Antibody NONREACTIVE Hep B Core Total Ab Nonreactive Hepatitis C Ab (EIA) Nonreactive Microbiology Microbiology Results: Microbiology 03/01/25 Unknown Urine Culture - Preliminary Urine Other - Suprapubic Culture in progress. 03/01/25 08:31 Blood Culture - Preliminary Blood - Venous No growth after 24 hours. 03/01/25 07:34 Blood Culture - Preliminary Blood - Venous No growth after 24 hours. Assessment and Plan (1) LUIS (acute kidney injury): Status: Acute Plan 74 years old male with PMH of asthma, diabetes, HLP, HTN, bladder cancer post resection and urostomy presented to ED for generalized weakness, chills, says he has similar symptoms when he has urinary infection. Sepsis secondary to suspected UTI: Patient meets sepsis criteria secondary to leukocytosis, tachycardia Has low-grade fever of 100.8 Platelets are low chronically not due to sepsis, in addition LFT chronically elevated also, LUIS is related to decreased p.o. intake and dehydration not due to sepsis. Lactic acid is 2, blood cultures sent, urine cultures sent. plan: Continue cefepime, follow cultures Patient has new lung mass on CT chest, pulmonary evaluation added. Hyponatremia His sodium fluctuate serum osmolality is lower than the urine osmolality(? Lung mass related) Nephrology evaluation, repeat BMP Mild elevated LFTs chronically elevated, CT abdomen shows possible liver cirrhosis: Patient says never drink alcohol, will check hepatitis profile LFTs monitoring. Non-anion gap Metabolic acidosis PH normal bicarb is 13 None anion gap, lactic acid negative Patient got IV fluids in the ED, we will repeat BMP Type 2 diabetes continue SSI diabetic diet Asthma(mild intermittent): Continue home medication DVT prophylaxis: SCD due to anemia/ thrombocytopenia. Above management discussed with the patient and his at bedside in detail length they both understand and in agreement with the above plan, time spent 70 minute, patient is full code. Patient will benefit from at least 2 midnight stay considering sepsis secondary to UTI, LUIS, multiple electrolytic abnormalities as above: Patient needs to be on IV antibiotic ,electrolyte monitoring, possible nephrology workup. Quality Stroke Does the patient have a stroke diagnosis?: No VTE Prior VTE?: No VTE Risk Level:: Medical - moderate - high VTE Device Contraindication: N/A - Device Ordered VTE Drug Contraindication: N/A - Med Ordered
[2025-03-02 16:32] LABS: Glucose, Whole Blood 136 mg/dL (60-115)
--- NOTE | 2025-03-02 16:58 | P.CNUR_ITS ---
History of Present Illness Consult details Consult date: 03/02/25 Narrative: 71 years old male with PMH of asthma, HTN, bladder cancer post radical cystectomy with ileostomy who presents to the hospital feeling weakness, chills and fever. The patient has had recurrent infections followed by [facility], last seen by Dr Narayan 2023. He presented to the hospital with complains of malaise, fever and vomiting with back pain on the right side. Review of Systems 2 Review of Systems: per [facility] Past Medical History Medical History HTN (hypertension) Acute hyponatremia Hydronephrosis Bladder cancer Asthma Diabetes Bladder cancer Incomplete emptying of bladder due to benign prostatic hyperplasia Complicated urinary tract infection Surgical History Surgical History History of surgery History of ileal conduit Social History Social History Household Members: Family Housing: House Are you a primary customer care assistant to a significant other at home: No Do you presently have visiting nurse or other home services: Yes Alcohol intake: never Comment: bedside Patient Tobacco Use Status: Never used Tobacco service: No Current occupational status: retired Meds Allergies Allergy/AdvReac Type Severity Reaction Status Date / Time aspirin Allergy Unknown Verified 03/01/25 05:41 Beta-Blockers AdvReac Unknown Verified 03/01/25 05:41 (Beta-Adrenergic Bloc ibuprofen AdvReac Unknown Verified 03/01/25 05:41 Active Medications: Current Medications Acetaminophen (Acetaminophen 325 Mg Tablet) 650 mg PO Q6H PRN PRN Reason: Pain, Mild 1-3,fever,headache Last Admin: 03/02/25 03:26 Dose: 650 mg Albuterol Sulfate (Albuterol Sulfate 90 Mcg 8 Gm Inhaler) 2 puff INHALE QID PRN PRN Reason: Shortness of Breath Atorvastatin Calcium (Atorvastatin Calcium 20 Mg Tablet) 20 mg PO DAILY [facility] Last Admin: 03/02/25 08:46 Dose: 20 mg Dextrose (Dextrose 50 % 25 Gm/50 Ml Syringe) 25 gm IVPUSH Q15M PRN; Protocol PRN Reason: per Hypoglycemia Standing Ord. Ferrous Sulfate (Ferrous Sulfate 324 Mg Tablet.) 324 mg PO DAILY [facility] Last Admin: 03/02/25 08:46 Dose: 324 mg Fluticasone/Vilanterol (Fluticasone/Vilanterol 200/25 Blst.W.Dev) 1 puff INHALE RDAILY [facility] Last Admin: 03/02/25 07:35 Dose: 1 puff Folic Acid (Folic Acid 1 Mg Tablet) 1 mg PO DAILY [facility] Last Admin: 03/02/25 08:46 Dose: 1 mg Glucose (Glucose Gel 15 Gm Gel..Gram.) 15 gm PO Q15M PRN; Protocol PRN Reason: per Hypoglycemia Standing Ord. Sodium Chloride (Ns) 1,000 mls @ 100 mls/hr IVCONT .Q10H [facility] Last Admin: 03/02/25 08:46 Dose: 100 mls/hr Cefepime HCl 1 gm/ Sodium (Chloride) 50 mls @ 100 mls/hr IV Q12H [facility] Last Infusion: 03/02/25 12:25 Dose: Infused Insulin Human Lispro (Insulin Lispro 100 Unit/Ml 3 Ml Vial) 0 unit SUBCUT QIDACHS [facility]; Protocol Last Admin: 03/02/25 16:49 Dose: Not Given Montelukast Sodium (Montelukast Sodium 10 Mg Tablet) 10 mg PO DAILY [facility] Last Admin: 03/02/25 08:46 Dose: 10 mg Multivitamins/Vitamin C (Multivitamin Tablet) 1 tab PO DAILY [facility] Last Admin: 03/02/25 08:46 Dose: 1 tab Valsartan (Valsartan 40 Mg Tablet) 40 mg PO DAILY [facility] Last Admin: 03/02/25 08:55 Dose: Not Given Home Medications ?Medication ?Instructions ?Recorded ?Confirmed ?Last Taken ?Type blood sugar diagnostic (ArabellaStyle #10 ea 04/18/2112/09 Unknown History Lite Strips) montelukast 10 mg tablet 10 mg PO DAILY 04/18/2102/0802/28/25 History lancets 28 gauge (ArabellaStyle #100 ea 06/24/21 01/05/24 Unknown History Lancets) folic acid 1 mg tablet 1 mg PO DAILY 12/10/2103/0102/28/25 History albuterol sulfate 90 mcg/actuation 2 puff PO QID PRN S hortness Of 02/08/22 03/01/25 Unknown History aerosol inhaler Breath atorvastatin 20 mg tablet 20 mg PO DAILY 03/01/2502/0802/28/25 History ferrous sulfate 325 mg (65 mg 325 mg PO DAILY 03/01/25 03/01/25 02/28/25 History iron) tablet (iron) metformin 500 mg tablet 500 mg PO BID 03/01/2503/0102/28/25 History sitagliptin phosphate 50 mg tablet 50 mg PO DAILY 02/0803/01/25 02/28/25 History (Januvia) telmisartan 20 mg tablet 20 mg PO DAILY 03/01/2502/0802/28/25 History vitamin B complex 1 tab PO DAILY 03/01/2502/0802/28/25 History Physical Exam 2 Vital Signs: Vital Signs: Last Vital Signs Temp 97.0 F 03/02/25 11:55 Pulse 90 03/02/25 11:55 Resp 18 03/02/25 11:55 BP 152/68 H 03/02/25 11:55 Pulse Ox 100 03/02/25 11:55 O2 Del Method Room Air 03/02/25 11:55 BMI result Body Mass Index 25.3 GI: Other: nontender : Other: urostomy- gross hematuria Results Labs 03/06/25 06:34 03/06/25 02:37 Labs: Abnormal lab results 03/01/25 03/01/25 03/02/25 Range/Units 16:53 20:15 06:08 WBC 19.6 H (4.8-10.8) X10*3/uL RBC 3.03 L (4.60-5.80) X10*6/uL Hgb 9.9 L (14.0-18.0) g/dl Hct 28.4 L (42.0-52.0) % Plt Count 121 L (160-400) X10*3/uL Sodium 128 L 127 L (135-145) mmol/L Carbon Dioxide 13 L 14 L (22-29) mmol/L Anion Gap 11 L (12-20) BUN 24 H 26 H (9-16) mg/dL POC Glucose 148 H (60-115) mg/dL Random Glucose 162 H 182 H (60-115) mg/dL Calcium 8.3 L (8.4-10.2) mg/dL Total Bilirubin 1.2 H (0.0-1.0) mg/dL Alkaline Phosphatase 236 H (39-117) U/L Albumin 3.4 L (3.5-5.0) g/dL 03/02/25 03/02/25 03/02/25 Range/Units 07:21 11:04 16:28 WBC (4.8-10.8) X10*3/uL RBC (4.60-5.80) X10*6/uL Hgb (14.0-18.0) g/dl Hct (42.0-52.0) % Plt Count (160-400) X10*3/uL Sodium (135-145) mmol/L Carbon Dioxide (22-29) mmol/L Anion Gap (12-20) BUN (9-16) mg/dL POC Glucose 215 H 183 H 136 H (60-115) mg/dL Random Glucose (60-115) mg/dL Calcium (8.4-10.2) mg/dL Total Bilirubin (0.0-1.0) mg/dL Alkaline Phosphatase (39-117) U/L Albumin (3.5-5.0) g/dL Short CBC 03/02/25 Range/Units 06:08 WBC 19.6 H (4.8-10.8) X10*3/uL Hgb 9.9 L (14.0-18.0) g/dl Hct 28.4 L (42.0-52.0) % Plt Count 121 L (160-400) X10*3/uL BMP 03/01/25 03/02/25 16:53 06:08 Sodium 128 L 127 L Potassium 3.7 3.6 Chloride 108 104 Carbon Dioxide 13 L 14 L BUN 24 H 26 H Creatinine 1.35 1.38 Calcium 8.3 L 8.6 Liver Function 03/02/25 Range/Units 06:08 Total Bilirubin 1.2 H (0.0-1.0) mg/dL AST 37 (5-37) U/L ALT 30 (0-40) U/L Alkaline Phosphatase 236 H (39-117) U/L Albumin 3.4 L (3.5-5.0) g/dL Urine 03/01/25 Range/Units 08:05 Urine Color Yellow Urine Appearance Cloudy Urine pH 6.5 (5.0-9.0) Ur Specific Bowie 1.015 (1.005-1.025) Urine Protein 100 (2+) H (Neg-Trace) mg/dL Urine Glucose (UA) Negative (Negative) mg/dL All other labs normal. Assessment and Plan (1) History of bladder cancer: Status: Acute (2) Hematuria: Status: Acute (3) Sepsis: Qualifiers: Acute renal failure type: unspecified Sepsis acute organ dysfunction status: with acute organ dysfunction Sepsis type: sepsis due to unspecified organism Severe sepsis acute organ dysfunction type: acute renal failure S evere sepsis shock status: without septic shock Qualified Code(s): A41.9 - Sepsis, unspecified organism; R65.20 - Severe sepsis without septic shock; N17.9 - Acute kidney failure, unspecified Status: Acute (4) Acute UTI: Status: Resolved Plan Manage conservatively, Hydrate, Abx therapy, will monitor Procedures Date of Service Date of Service: 03/06/25
--- NOTE | 2025-03-02 19:22 | PC.NURSE ---
Verbal order per Dr. Story to stop IV fluids at 1900.
[2025-03-02 20:59] LABS: Glucose, Whole Blood 185 mg/dL (60-115)
[2025-03-03] VITALS (7 sets, daily range): BP systolic 110–141; BP diastolic 57–64; PULSE 71–83; RESP 16–18; TEMP 36.1–37.3; O2SAT 99–100
[2025-03-03 07:19] LABS: Glucose, Whole Blood 109 mg/dL (60-115)
[2025-03-03] MEDS: Fluticasone/Vilanterol 200/25 BLST.W.DEV 1 PUFF INHALE (07:47)
--- NOTE | 2025-03-03 08:59 | HO.OSTOMY ---
Wound / Ostomy Consult: Initial 74yr old?[place] [facility] [place] See progress notes and H&P for detailed history.? Wound consult placed for Urostomy and hematuria.? Patient agreeable to assessment and photo documentation.? Pouch is intact and noted to have clear yellow urine with some gretel of mucus noted - WNL. No hematuria noted at this time - defer to providers for treatment. The pouch is intact and not leaking at this time. He reports his changed yesterday due to leaking. He reports she changes on a schedule Thursday and Thursday but occasionally leaks. He is happy with the pouch he is using and does not feel there is an issue. Unable to confirm pouch he uses but looks like a inDegreeate pouch 2 piece cut to size. Our standard pouch should work while he is inpatient if he chooses to not use his own. He reports he does not use a leg bag or a gravity drainage bag. No interventions needed at this time. Re-consult wound care Nurse for wound deterioration or wound changes.
[2025-03-03] MEDS: Ferrous Sulfate 324 MG TABLET.DR PO (09:05)
[2025-03-03 09:25] LABS: Anion Gap 12 (12-20); Blood Urea Nitrogen 26 mg/dL (9-16); Calcium 8.6 mg/dL (8.4-10.2); Carbon Dioxide 13 mmol/L (22-29); Chloride 115 mmol/L (96-108); Creatinine Clr Calc Pharmacy 40.1; Estimated Glomerular Filt Rate 58; Potassium 3.6 mmol/L (3.3-5.1); Sodium 136 mmol/L (135-145)
[2025-03-03 09:40] LABS: Hematocrit 25.6 % (42.0-52.0); Hemoglobin 8.9 g/dl (14.0-18.0); Mean Corpuscular HGB Conc 34.8 g/dl (31.0-36.0); Mean Corpuscular Hemoglobin 33.0 pg (27.0-33.0); Mean Corpuscular Volume 94.8 fL (80.0-98.0); NRBC Abs Auto 0.000 X10*3/uL (0.0-0.012); NRBC Pct Auto 0.0 /100WBC (0.0-0.2); Platelet Count 131 X10*3/uL (160-400); Red Blood Count 2.70 X10*6/uL (4.60-5.80); White Blood Count 9.4 X10*3/uL (4.8-10.8)
[2025-03-03 09:45] LABS: Anion Gap 13 (12-20); Blood Urea Nitrogen 26 mg/dL (9-16); Calcium 8.6 mg/dL (8.4-10.2); Carbon Dioxide 12 mmol/L (22-29); Chloride 116 mmol/L (96-108); Creatinine Clr Calc Pharmacy 41.1; Estimated Glomerular Filt Rate > 60; Potassium 3.5 mmol/L (3.3-5.1); Sodium 137 mmol/L (135-145)
--- NOTE | 2025-03-03 11:00 | P.PNNP_ITS ---
Subjective Subjective Date of Service: 03/03/25 Interval history: Patient here with generalized weakness, chills, sepsis likely UTI. Following for LUIS, hyponatremia. Patient reports he is feeling improvement day by day, still cold. Denies abdominal/flank pain, chest pain, shortness of breath. Denies new concerns/complaints. creatinine down to 1.18 today. Serum sodium is 138. Physical Exam 2 Vital Signs: Vital Signs: Last Vital Signs Temp 97.0 F 03/03/25 08:00 Pulse 78 03/03/25 08:00 Resp 18 03/03/25 08:00 BP 141/63 H 03/03/25 08:00 Pulse Ox 99 03/03/25 08:00 O2 Del Method Room Air 03/03/25 08:00 BMI result Body Mass Index 25.3 Const: General: no acute distress, alert and awake Resp: Effort & Inspection: normal respiratory effort and able to speak in complete sentences Auscultation: clear to auscultation bilaterally Cardio: Palpation: normal PMI Rate: regular rate Rhythm: regular rhythm Heart sounds: S1 normal heart sound present and S2 normal heart sound present GI: Palpation (GI): Soft to palpation and nontender Skin: Rashes: no rashes Extrem: General: No edema Objective Data Labs 03/03/25 09:24 03/03/25 09:23 Labs: Laboratory Results - last 24 hr 03/02/25 03/02/25 03/02/25 11:04 16:28 20:53 WBC RBC Hgb Hct MCV MCH MCHC RDW Plt Count MPV Absolute Nucleated RBC Nucleated RBC % (auto) Sodium Potassium Chloride Carbon Dioxide Anion Gap BUN Creatinine Estim Creat Clear Calc Estimated GFR POC Glucose 183 H 136 H 185 H Random Glucose Calcium 03/03/25 03/03/25 03/03/25 07:15 08:05 09:23 WBC RBC Hgb Hct MCV MCH MCHC RDW Plt Count MPV Absolute Nucleated RBC Nucleated RBC % (auto) Sodium 136 137 Potassium 3.6 3.5 Chloride 115 H 116 H Carbon Dioxide 13 L 12 L Anion Gap 12 13 BUN 26 H 26 H Creatinine 1.21 1.18 Estim Creat Clear Calc 40.1 41.1 Estimated GFR 58 > 60 POC Glucose 109 Random Glucose 102 150 H Calcium 8.6 8.6 03/03/25 09:24 WBC 9.4 RBC 2.70 L Hgb 8.9 L Hct 25.6 L MCV 94.8 MCH 33.0 MCHC 34.8 RDW 13.9 Plt Count 131 L MPV 11.1 Absolute Nucleated RBC 0.000 Nucleated RBC % (auto) 0.0 Sodium Potassium Chloride Carbon Dioxide Anion Gap BUN Creatinine Estim Creat Clear Calc Estimated GFR POC Glucose Random Glucose Calcium Microbiology Microbiology Results: Microbiology 03/01/25 08:31 Blood - Venous Blood Culture - Preliminary No growth after 48 hours. 03/01/25 07:34 Blood - Venous Blood Culture - Preliminary No growth after 48 hours. 03/01/25 Unknown Urine Other - Suprapubic Urine Culture - Preliminary Culture in progress. Procedures Date of Service Date of Service: 03/03/25 Assessment & Plan Assessment and plan (1) LUIS (acute kidney injury): Status: Acute (2) Sepsis: Status: Acute (3) Mass of left lung: Status: Acute (4) Hyponatremia: Status: Acute Plan LUIS, resolved. Creatinine has returned to baseline. likely secondary to sepsis; continue antibiotics. 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 metabolic acidosis- likely combination of sepsis, LUIS and RTA. Recommend 1300mg sodium bicarbonate PO BID. avoid nephrotoxins continue supportive care recommend daily BMP Discussed with Dr Franco Time Spent With Patient Time: Total time managing care of this patient today ____ minutes. Progress Note: Quality Stroke Does the patient have a stroke diagnosis?: No
[2025-03-03 11:26] LABS: Glucose, Whole Blood 145 mg/dL (60-115)
--- NOTE | 2025-03-03 14:29 | MHC.CM.PN ---
EMR REVIEWED, PER HOSPITALIST PT WILL NEED NEPHRO CLEAREANCE AND ANTIC 1-2 MORE DAYS INPT, CM WILL CONT TO FOLLOW DC NEEDS.
[2025-03-03 15:04] LABS: Glucose, Whole Blood 180 mg/dL (60-115)
[2025-03-03 16:07] LABS: Glucose, Whole Blood 168 mg/dL (60-115)
--- NOTE | 2025-03-03 17:40 | P.PNIM_ITS ---
Subjective Subjective Date of Service: 03/03/25 Interval History: ?lung mass uti hyonatremia Review of Systems Feeling improving, denies any urinary complaint With shortness of breaths Review of Systems: Yes all other systems are reviewed and are negative Physical Exam 2 Exam: Exam: Appearance: Alert.? Oriented X3.? cvs: rrr, [id number] . res: air entry fair ,no rales or wheezin. abd: no rebound or guarding ,nt, bs present. : Has urostomy bag-yellowish urine. ext pulses present , no cyanosis . neuro: axo3 , nonfocal Vital Signs: Vital Signs: Last Vital Signs Temp 98.9 F 03/03/25 16:00 Pulse 72 03/03/25 16:00 Resp 18 03/03/25 16:00 BP 131/64 03/03/25 16:00 Pulse Ox 100 03/03/25 16:00 O2 Del Method Room Air 03/03/25 16:00 BMI result Body Mass Index 25.3 Objective Data Active Medications Acetaminophen (Acetaminophen 325 Mg Tablet) 650 mg PO Q6H PRN PRN Reason: Pain, Mild 1-3,fever,headache Last Admin: 03/02/25 23:44 Dose: 650 mg Documented By: DONNA Albuterol Sulfate (Albuterol Sulfate 90 Mcg 8 Gm Inhaler) 2 puff INHALE QID PRN PRN Reason: Shortness of Breath Atorvastatin Calcium (Atorvastatin Calcium 20 Mg Tablet) 20 mg PO DAILY [facility] Last Admin: 03/03/25 09:05 Dose: 20 mg Documented By: ALEX Dextrose (Dextrose 50 % 25 Gm/50 Ml Syringe) 25 gm IVPUSH Q15M PRN; Protocol PRN Reason: per Hypoglycemia Standing Ord. Docusate Sodium (Docusate Sodium 100 Mg Capsule) 100 mg PO BID [facility] Last Admin: 03/03/25 16:21 Dose: 100 mg Documented By: ALEX Ferrous Sulfate (Ferrous Sulfate 324 Mg Tablet.) 324 mg PO DAILY [facility] Last Admin: 03/03/25 09:05 Dose: 324 mg Documented By: ALEX Fluticasone/Vilanterol (Fluticasone/Vilanterol 200/25 Blst.W.Dev) 1 puff INHALE RDAILY [facility] Last Admin: 03/03/25 07:47 Dose: 1 puff Documented By: ELOY Folic Acid (Folic Acid 1 Mg Tablet) 1 mg PO DAILY [facility] Last Admin: 03/03/25 09:05 Dose: 1 mg Documented By: ALEX Glucose (Glucose Gel 15 Gm Gel..Gram.) 15 gm PO Q15M PRN; Protocol PRN Reason: per Hypoglycemia Standing Ord. Sodium Chloride (Ns) 1,000 mls @ 100 mls/hr IVCONT .Q10H [facility] Last Admin: 03/03/25 16:45 Dose: Not Given Documented By: ALEX Non-Admin Reason: Physician Held Med Cefepime HCl 1 gm/ Sodium (Chloride) 50 mls @ 100 mls/hr IV Q12H [facility] Last Infusion: 03/03/25 15:05 Dose: Infused Documented By: ALEX Insulin Human Lispro (Insulin Lispro 100 Unit/Ml 3 Ml Vial) 0 unit SUBCUT QIDACHS [facility]; Protocol Last Admin: 03/03/25 16:21 Dose: 2 unit Documented By: ALEX Montelukast Sodium (Montelukast Sodium 10 Mg Tablet) 10 mg PO DAILY [facility] Last Admin: 03/03/25 09:05 Dose: 10 mg Documented By: ALEX Multivitamins/Vitamin C (Multivitamin Tablet) 1 tab PO DAILY [facility] Last Admin: 03/03/25 09:05 Dose: 1 tab Documented By: ALEX Polyethylene Glycol (Polyethylene Glycol 3350 17 Gm Powd.Pack) 17 gm PO DAILY PRN PRN Reason: Constipation Sodium Bicarbonate (Sodium Bicarbonate 650 Mg Tablet) 1,300 mg PO QID [facility] Last Admin: 03/03/25 16:21 Dose: 1,300 mg Documented By: ALEX Valsartan (Valsartan 40 Mg Tablet) 40 mg PO DAILY [facility] On Hold: 03/03/25 08:30 Last Admin: 03/02/25 08:55 Dose: Not Given Documented By: DEBI Non-Admin Reason: Physician Held Med Labs 03/03/25 09:24 03/03/25 09:23 Labs: Laboratory Results - last 24 hr 03/02/25 03/03/25 03/03/25 20:53 07:15 08:05 MCV MCH MCHC RDW Plt Count MPV Absolute Nucleated RBC Nucleated RBC % (auto) Anion Gap 12 Estim Creat Clear Calc 40.1 Estimated GFR 58 POC Glucose 185 H 109 Random Glucose 102 Calcium 8.6 03/03/25 03/03/25 03/03/25 09:23 09:24 11:21 MCV 94.8 MCH 33.0 MCHC 34.8 RDW 13.9 Plt Count 131 L MPV 11.1 Absolute Nucleated RBC 0.000 Nucleated RBC % (auto) 0.0 Anion Gap 13 Estim Creat Clear Calc 41.1 Estimated GFR > 60 POC Glucose 145 H Random Glucose 150 H Calcium 8.6 03/03/25 03/03/25 15:00 16:03 MCV MCH MCHC RDW Plt Count MPV Absolute Nucleated RBC Nucleated RBC % (auto) Anion Gap Estim Creat Clear Calc Estimated GFR POC Glucose 180 H 168 H Random Glucose Calcium Microbiology Microbiology Results: Microbiology 03/01/25 Unknown Urine Culture - Final Urine Other - Suprapubic 03/01/25 08:31 Blood Culture - Preliminary Blood - Venous No growth after 48 hours. 03/01/25 07:34 Blood Culture - Preliminary Blood - Venous No growth after 48 hours. Assessment and Plan (1) LUIS (acute kidney injury): Status: Acute Plan 74 years old male with PMH of asthma, diabetes, HLP, HTN, bladder cancer post resection and urostomy presented to ED for generalized weakness, chills, says he has similar symptoms when he has urinary infection. Sepsis secondary to suspected UTI: Patient meets sepsis criteria secondary to leukocytosis, tachycardia Has low-grade fever of 100.8 Platelets are low chronically not due to sepsis, in addition LFT chronically elevated also, LUIS is related to decreased p.o. intake and dehydration not due to sepsis. Lactic acid is 2, blood cultures sent, urine cultures sent. plan: Continue cefepime, follow cultures Patient has new lung mass on CT chest, pulmonary evaluation noted -need outpatient workup with 6-8 weeks. 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 metabolic acidosis- likely combination of sepsis, LUIS and RTA. Recommend 1300mg sodium bicarbonate PO BID. Nephrology evaluation, repeat BMP Mild elevated LFTs chronically elevated, CT abdomen shows possible liver cirrhosis: Patient says never drink alcohol, will check hepatitis profile LFTs monitoring. Non-anion gap Metabolic acidosis PH normal bicarb is 13 None anion gap, lactic acid negative Patient got IV fluids in the ED, we will repeat BMP Type 2 diabetes continue SSI diabetic diet Asthma(mild intermittent): Continue home medication ambulate patient DVT prophylaxis: SCD due to anemia/ thrombocytopenia. Quality Stroke Does the patient have a stroke diagnosis?: No VTE Prior VTE?: No VTE Risk Level:: Medical - moderate - high VTE Device Contraindication: N/A - Device Ordered VTE Drug Contraindication: N/A - Med Ordered
[2025-03-03 20:30] LABS: Glucose, Whole Blood 171 mg/dL (60-115)
[2025-03-04 03:20] VITALS: BP 129/61; PULSE 71; RESP 18; TEMP 36.4; O2SAT 100
[2025-03-04 07:45] VITALS: BP 126/60; PULSE 66; RESP 18; TEMP 36.6; O2SAT 100
[2025-03-04 07:52] LABS: Glucose, Whole Blood 93 mg/dL (60-115)
[2025-03-04 08:01] LABS: Blood Urea Nitrogen 29 mg/dL (9-16); Calcium 8.6 mg/dL (8.4-10.2); Creatinine Clr Calc Pharmacy 41.1; Estimated Glomerular Filt Rate > 60
[2025-03-04] MEDS: Fluticasone/Vilanterol 200/25 BLST.W.DEV 1 PUFF INHALE (08:02)
[2025-03-04 08:15] LABS: Anion Gap 12 (12-20); Carbon Dioxide 17 mmol/L (22-29); Chloride 113 mmol/L (96-108); Potassium 4.1 mmol/L (3.3-5.1); Sodium 138 mmol/L (135-145)
[2025-03-04] MEDS: Ferrous Sulfate 324 MG TABLET.DR PO (09:39)
--- NOTE | 2025-03-04 11:11 | P.DS_ITS ---
DS: Providers Provider Date of Service: 03/04/25 Date of admission: 03/01/25 08:52 Date of discharge: 03/04/25 Primary care physician: Hilary Jimenez MD Consults: 03/01/25 09:00 Consult to Nephrology Routine Consulting Provider: [facility] Reason for consultation: Luis ,low [place] , [place] 03/01/25 14:48 Consult to Pulmonology Routine Consulting Provider: [facility] Reason for consultation: lung mass new Has provider been notified: No 03/02/25 06:41 Consult to Urology Routine Consulting Provider: [facility] Reason for consultation: hematuria 03/02/25 08:06 Consult to Wound Care Routine Reason for consultation: urostomy /hematuria Has provider been notified: No Attending physician on discharge: Vickey Story Discharging clinician: Vickey Story DS: Diagnosis Discharge Diagnosis (1) LUIS (acute kidney injury): Status: Acute DS: Summary Hospital Course Hospital Course: HPI:74 years old male with PMH of asthma, diabetes, HLP, HTN, bladder cancer post resection and urostomy presented to ED for generalized weakness, chills, says he has similar symptoms when he has urinary infection. Otherwise denies any nausea vomiting diarrhea or abdominal pain. His urine bag has yellowish urine. He says he has some dry cough intermittent which is at baseline but no sputum , shortness of breaths or chest pain. Discussed with the ED: WBC 20.3, platelets 121, BUN 22/creatinine 1.48, sodium 128, bicarb is 13, anion gap normal, VBG pH is maintained 7.4. ctabd/chest in ed : 1. Lobulated 4.8 x 4.3 x 4.2 cm in left lower lobe mass, highly suspicious for neoplasm. There is associated mediastinal lymphadenopathy, as described. 2. Atrophic right kidney with mild dilatation of the renal pelvis and ureter to the level of a urinary diversion. Findings are similar to the prior study and likely represent reflux. 3. Cirrhosis of the liver. Patient received IV cefepime, Tylenol and IV fluid and requested admission for LUIS, sepsis likely due to UTI, and electrolytic abnormalities. Hospital course: 74 years old male with PMH of asthma, diabetes, HLP, HTN, bladder cancer post resection and urostomy presented to ED for generalized weakness, chills, says he has similar symptoms when he has urinary infection. Sepsis secondary to suspected UTI: Patient meets sepsis criteria secondary to leukocytosis, tachycardia, low-grade fever of 100.8 Platelets are low chronically not due to sepsis, LUIS is related to decreased p.o. intake and dehydration not due to sepsis. Lactic acid is 2, blood and urine cultures sent. CT abdominal done :1. Lobulated 4.8 x 4.3 x 4.2 cm in left lower lobe mass, highly suspicious for neoplasm. There is associated mediastinal lymphadenopathy, as described. 2. Atrophic right kidney with mild dilatation of the renal pelvis and ureter to the level of a urinary diversion. Findings are similar to the prior study and likely represent reflux. 3. Cirrhosis of the liver. Subsequently chest CT scan was also done: Impression as above CT abdomen section. Plan: Patient was started on IV antibiotics, patient seems to be improved significantly, blood culture negative at 48 hours. Urine culture mixed endy. Patient concerned that his symptoms always like above when he has UTI, also had mild hematuria initially which resolved-patient will benefit from antibiotic treatment-added to Ceftin 500 mg p.o. b.i.d. Patient has new lung mass on CT chest, pulmonary evaluation noted -need outpatient workup with 6-8 weeks. Patient is currently asymptomatic, leukocytosis improved,no fever. 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 metabolic acidosis- likely combination of sepsis, LUIS and RTA. Recommend 1300mg sodium bicarbonate PO BID. Will give patient will limited sodium bicarbonate supplements, monitor BMP outpatient and further use as per PCP and Nephrology Outpatient. Mild elevated LFTs chronically elevated, CT abdomen shows possible liver cirrhosis: Patient says never drink alcohol, will check hepatitis profile negative . lft improving , has mild elevated bilirubin/alk. phos -Patient says that he knows about it and has liver disease and he follows up with Dr. Snider office outpatient. Plan: Monitor CBC, BMP, liver panel outpatient. complete ceftin 500 mg po bid for 9 more days. follow up with lung doctror and repeat CT scan chest in 6-8 week for lung mass. Sodium bicarbonate limited supply given for 1 week, repeat BMP in 1 week outpatient, consider outpatient Nephrology follow-up . For constipation added Colace and Dulcolax. If any new symptoms-please go to nearest emergency room for further evaluation. Above management discussed with the patient and his in detail length-they both understand and in agreement with the above plan, time spent 45 minute, all question answered. Staff was present during conversation. Time Attestation Total time managing care of this patient today: 40 mintues. Discharge Coordination Time (in mins): 40 min Quality: Safe Use of Opioids Does Pt have an Active Cancer Diagnosis on the Problem List?: No Quality: Stroke Does the patient have a stroke diagnosis?: No Physical Exam Exam: Exam: Appearance: Alert.? Oriented X3.? cvs: rrr, [id number] . res: air entry fair ,no rales or wheezin. abd: no rebound or guarding ,nt, bs present. : Has urostomy bag-yellowish urine. ext pulses present , no cyanosis . neuro: axo3 , nonfocal Vital Signs: Vital Signs: Last Vital Signs Temp 97.9 F 03/04/25 07:45 Pulse 66 03/04/25 07:45 Resp 18 03/04/25 07:45 BP 126/60 03/04/25 07:45 Pulse Ox 100 03/04/25 07:45 O2 Del Method Room Air 03/04/25 07:45 BMI result Body Mass Index 25.3 DS: Data Data Completed and Pending Labs on day of discharge: Laboratory Results - last 24 hr 03/03/25 03/03/25 03/03/25 11:21 15:00 16:03 Hold Purple Top Sodium Potassium Chloride Carbon Dioxide Anion Gap BUN Creatinine Estim Creat Clear Calc Estimated GFR POC Glucose 145 H 180 H 168 H Random Glucose Calcium 03/03/25 03/04/25 03/04/25 20:26 05:59 07:42 Hold Purple Top SEE NOTE Sodium 138 Potassium 4.1 Chloride 113 H Carbon Dioxide 17 L Anion Gap 12 BUN 29 H Creatinine 1.18 Estim Creat Clear Calc 41.1 Estimated GFR > 60 POC Glucose 171 H 93 Random Glucose 90 Calcium 8.6 Preliminary micro results at discharge 03/01/25 08:31 Blood Culture - Preliminary Blood - Venous No growth after 48 hours. 03/01/25 07:34 Blood Culture - Preliminary Blood - Venous No growth after 48 hours. Imaging Chest x-ray: Radiologist's impression: ITS Impressions Chest X-Ray 03/01/25 06:38 IMPRESSION: Questionable airspace disease, left lower lung lobe/retrocardiac. Electronically signed by: Farhad Johnson MD 03/01/2025 07:53 AM EDT RP Abdomen/Pelvis CT 03/01/25 08:44 IMPRESSION: 1. Lobulated 4.8 x 4.3 x 4.2 cm in left lower lobe mass, highly suspicious for neoplasm. There is associated mediastinal lymphadenopathy, as described. 2. Atrophic right kidney with mild dilatation of the renal pelvis and ureter to the level of a urinary diversion. Findings are similar to the prior study and likely represent reflux. 3. Cirrhosis of the liver. 4. These findings were discussed with Dr. Hernandez in the emergency room on 03/01/2025 at 10:24 AM. Electronically signed by: Darrian Fernandez MD 03/01/2025 10:29 AM EDT RP Chest CT 03/01/25 08:44 IMPRESSION: 1. Lobulated 4.8 x 4.3 x 4.2 cm in left lower lobe mass, highly suspicious for neoplasm. There is associated mediastinal lymphadenopathy, as described. 2. Atrophic right kidney with mild dilatation of the renal pelvis and ureter to the level of a urinary diversion. Findings are similar to the prior study and likely represent reflux. 3. Cirrhosis of the liver. 4. These findings were discussed with Dr. Hernandez in the emergency room on 03/01/2025 at 10:24 AM. Electronically signed by: Darrian Fernandez MD 03/01/2025 10:29 AM EDT RP Discharge Plan Discharge Anticipated Discharge Date/Time: 03/04/25 10:59 Patient Disposition: Home, Self-Care Discharge Diagnosis: uti ,lung mass Referrals: Mauro Narayan MD [Physician, Urology] - 1 Week Sonny Franco MD [Physician, Nephrology] - 1 Week Vimal Ferrer MD [Physician, Pulmonology] - 2 Weeks PhysicianGilberto [Physician, Medical] - 1 Week Discharge Medications: New cefuroxime axetil 500 mg Tablet 500 mg PO Q12H Qty: 18 0RF docusate sodium [Colace] 100 mg capsule 100 mg PO DAILY PRN (Reason: constipation) Qty: 30 0RF bisacodyl [Dulcolax (bisacodyl)] 5 mg tablet,delayed release (DR/EC) 5 mg PO BEDTIME PRN (Reason: constipation) 30 Days Qty: 30 0RF Continued (DME) MicroHesive Stoma Paste Paste See Rx Instructions .Route Qty: 60 5RF Rx Instructions: Securi-T stoma paste (DME) Stomahesive Skin Barrier 4 X 4 wafer See Rx Instructions .Route Qty: 30 1RF Rx Instructions: Securi-T [place] [id number] - change every 3 days (DME) Assura Urostomy Pouch 10 misc See Rx Instructions .Route Qty: 10 4RF Rx Instructions: Securi-T 45mm urostomy bag [id number] albuterol sulfate 90 mcg/actuation HFA aerosol inhaler 2 puff PO QID PRN (Reason: Shortness Of Breath) budesonide-formoterol [Symbicort] 160-4.5 mcg/actuation HFA aerosol inhaler 2 puff inhalation Q12H Qty: 10.2 0RF metformin 500 mg tablet 500 mg PO BID atorvastatin 20 mg tablet 20 mg PO DAILY telmisartan 20 mg tablet 20 mg PO DAILY Januvia 50 mg tablet 50 mg PO DAILY ferrous sulfate [iron] 325 mg (65 mg iron) Tablet 325 mg PO DAILY vitamin B complex Tablet 1 tab PO DAILY montelukast 10 mg tablet 10 mg PO DAILY (DME) FreeStyle Lite Strips Strip See Rx Instructions Not Applicable DAILY Qty: 10 Rx Instructions: As directed (DME) lancets [FreeStyle Lancets] 28 gauge misc See Rx Instructions topical BID Qty: 100 Rx Instructions: As directed folic acid 1 mg tablet 1 mg PO DAILY Discharge Orders: Discharge Order (Routine); Ordered 03/04/25 Ordered By: Vickey Story Diet: Advance to usual diet Activity on Discharge: As tolerated Stand Alone Forms: Patient Portal Discharge page Print Language: Yi Other Ambulatory Orders: Basic Metabolic Panel (Routine) Timeframe: 1 Week Facility: [facility] - Location: Laboratory Ordered By: Vickey Story Complete Blood Count no Diff (Routine) Timeframe: 1 Week Facility: [facility] - Location: Laboratory Ordered By: Vickey Story Liver Panel (Routine) Timeframe: 1 Week Facility: [facility] - Location: Laboratory Ordered By: Vickey Story Care Plan Goals: complete ceftin 500 mg po bid for 9 more days. follow up with lung doctror and repeat CT scan chest in 6-8 week for lung mass. Sodium bicarbonate limited supply given for 1 week, repeat BMP in 1 week outpatient, consider outpatient Nephrology follow-up . also follow up with dr snider office for elevated lft's. If any new symptoms-please go to nearest emergency room for further evaluation. Health Concerns: As above. Plan of Treatment: As above. Assessment: As above.
[2025-03-04 11:22] VITALS: BP 116/56; PULSE 70; RESP 20; TEMP 36.7; O2SAT 100
[2025-03-04 11:30] LABS: Glucose, Whole Blood 177 mg/dL (60-115)
--- NOTE | 2025-03-04 13:23 | P.PNIM_ITS ---
Subjective Subjective Date of Service: 03/04/25 Interval History: hematuria Review of Systems has bleeding stoma site no fever or chills Physical Exam 2 Exam: Exam: Appearance: Alert.? Oriented X3.? cvs: rrr, [id number] . res: air entry fair ,no rales or wheezin. abd: no rebound or guarding ,nt, bs present. : Has urostomy bag-started having some bleeding at stoma site. ext pulses present , no cyanosis . neuro: axo3 , nonfocal Vital Signs: Vital Signs: Last Vital Signs Temp 98.1 F 03/04/25 11:22 Pulse 70 03/04/25 11:22 Resp 20 03/04/25 11:22 BP 116/56 L 03/04/25 11:22 Pulse Ox 100 03/04/25 11:22 O2 Del Method Room Air 03/04/25 11:22 BMI result Body Mass Index 25.3 Objective Data Active Medications Acetaminophen (Acetaminophen 325 Mg Tablet) 650 mg PO Q6H PRN PRN Reason: Pain, Mild 1-3,fever,headache Last Admin: 03/02/25 23:44 Dose: 650 mg Documented By: DONNA Albuterol Sulfate (Albuterol Sulfate 90 Mcg 8 Gm Inhaler) 2 puff INHALE QID PRN PRN Reason: Shortness of Breath Atorvastatin Calcium (Atorvastatin Calcium 20 Mg Tablet) 20 mg PO DAILY [facility] Last Admin: 03/04/25 09:38 Dose: 20 mg Documented By: ALEX Cefuroxime Axetil (Cefuroxime Axetil 500 Mg Tablet) 500 mg PO Q12H [facility] Last Admin: 03/04/25 09:38 Dose: 500 mg Documented By: ALEX Dextrose (Dextrose 50 % 25 Gm/50 Ml Syringe) 25 gm IVPUSH Q15M PRN; Protocol PRN Reason: per Hypoglycemia Standing Ord. Docusate Sodium (Docusate Sodium 100 Mg Capsule) 100 mg PO BID [facility] Last Admin: 03/04/25 09:38 Dose: 100 mg Documented By: ALEX Ferrous Sulfate (Ferrous Sulfate 324 Mg Tablet.) 324 mg PO DAILY [facility] Last Admin: 03/04/25 09:39 Dose: 324 mg Documented By: ALEX Fluticasone/Vilanterol (Fluticasone/Vilanterol 200/25 Blst.W.Dev) 1 puff INHALE RDAILY [facility]1983 Last Admin: 03/04/25 08:02 Dose: 1 puff Documented By: JAK Folic Acid (Folic Acid 1 Mg Tablet) 1 mg PO DAILY [facility] Last Admin: 03/04/25 09:38 Dose: 1 mg Documented By: ALEX Glucose (Glucose Gel 15 Gm Gel..Gram.) 15 gm PO Q15M PRN; Protocol PRN Reason: per Hypoglycemia Standing Ord. Lactated Ringer's (Lr) 1,000 mls @ 50 mls/hr IVCONT .Q20H [facility] Insulin Human Lispro (Insulin Lispro 100 Unit/Ml 3 Ml Vial) 0 unit SUBCUT QIDACHS [facility]; Protocol Last Admin: 03/04/25 11:39 Dose: 2 unit Documented By: ALEX Montelukast Sodium (Montelukast Sodium 10 Mg Tablet) 10 mg PO DAILY [facility] Last Admin: 03/04/25 09:39 Dose: 10 mg Documented By: ALEX Multivitamins/Vitamin C (Multivitamin Tablet) 1 tab PO DAILY [facility] Last Admin: 03/04/25 09:39 Dose: 1 tab Documented By: ALEX Polyethylene Glycol (Polyethylene Glycol 3350 17 Gm Powd.Pack) 17 gm PO DAILY [facility] Last Admin: 03/04/25 09:39 Dose: 17 gm Documented By: ALEX Sodium Bicarbonate (Sodium Bicarbonate 650 Mg Tablet) 1,300 mg PO QID [facility] Last Admin: 03/04/25 09:38 Dose: 1,300 mg Documented By: ALEX Valsartan (Valsartan 40 Mg Tablet) 40 mg PO DAILY [facility] On Hold: 03/03/25 08:30 Last Admin: 03/02/25 08:55 Dose: Not Given Documented By: DEBI Non-Admin Reason: Physician Held Med Labs 03/03/25 09:24 03/04/25 05:59 Labs: Laboratory Results - last 24 hr 03/03/25 03/03/25 03/03/25 15:00 16:03 20:26 Hold Purple Top Anion Gap Estim Creat Clear Calc Estimated GFR POC Glucose 180 H 168 H 171 H Random Glucose Calcium 03/04/25 03/04/25 03/04/25 05:59 07:42 11:22 Hold Purple Top SEE NOTE Anion Gap 12 Estim Creat Clear Calc 41.1 Estimated GFR > 60 POC Glucose 93 177 H Random Glucose 90 Calcium 8.6 Microbiology Microbiology Results: Microbiology 03/01/25 Unknown Urine Culture - Final Urine Other - Suprapubic 03/01/25 08:31 Blood Culture - Preliminary Blood - Venous No growth after 48 hours. 03/01/25 07:34 Blood Culture - Preliminary Blood - Venous No growth after 48 hours. Assessment and Plan (1) LUIS (acute kidney injury): Status: Acute Plan 74 years old male with PMH of asthma, diabetes, HLP, HTN, bladder cancer post resection and urostomy presented to ED for generalized weakness, chills, says he has similar symptoms when he has urinary infection. Hematuria /stoma site bleeding check h/h, inr ,type and screen ivf moniter site d/w urology Sepsis secondary to suspected UTI: Patient meets sepsis criteria secondary to leukocytosis, tachycardia Has low-grade fever of 100.8 Platelets are low chronically not due to sepsis, in addition LFT chronically elevated also, LUIS is related to decreased p.o. intake and dehydration not due to sepsis. Lactic acid is 2, blood cultures sent, urine cultures sent. plan: switched to ceftin ,blood cultures neg,urine culture mixed endy. Patient has new lung mass on CT chest, pulmonary evaluation noted -need outpatient workup with 6-8 weeks. 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 metabolic acidosis- likely combination of sepsis, LUIS and RTA. Recommend 1300mg sodium bicarbonate PO BID. Nephrology followin Mild elevated LFTs chronically elevated, CT abdomen shows possible liver cirrhosis: Patient says never drink alcohol, will check hepatitis profile LFTs monitoring. Non-anion gap Metabolic acidosis PH normal bicarb is 13 None anion gap, lactic acid negative Patient got IV fluids in the ED, we will repeat BMP Type 2 diabetes continue SSI diabetic diet Asthma(mild intermittent): Continue home medication ambulate patient DVT prophylaxis: SCD due to anemia/ thrombocytopenia. Ongoing need of stay: Hematuria: Need H&H monitoring as well as hematuria monitoring, urology follow-up. Quality Stroke Does the patient have a stroke diagnosis?: No VTE Prior VTE?: No VTE Risk Level:: Medical - moderate - high VTE Device Contraindication: N/A - Device Ordered VTE Drug Contraindication: N/A - Med Ordered
--- NOTE | 2025-03-04 13:33 | MHC.CM.PN ---
Addendum entered by Caitlyn May 03/04/25 14:01: DC cancelled, pt. requiring further care. Original Note: Pt has been medically cleared to DC, he will go home via family transport, plan is self care.
[2025-03-04 14:00] LABS: Hematocrit 23.4 % (42.0-52.0); Hemoglobin 8.0 g/dl (14.0-18.0)
[2025-03-04 14:14] LABS: INTERNATIONAL NORM RATIO 1.1 (0.9-1.1); Prothrombin Time 12.2 SEC (10.9-12.4)
[2025-03-04] MEDS: Lactated Ringers 1,000 ML 50 ML IVCONT (14:46)
[2025-03-04 15:44] VITALS: BP 119/58; PULSE 72; RESP 17; TEMP 37.6; O2SAT 100
[2025-03-04 16:13] LABS: Glucose, Whole Blood 157 mg/dL (60-115)
[2025-03-04 19:37] LABS: Hematocrit 24.6 % (42.0-52.0); Hemoglobin 8.3 g/dl (14.0-18.0)
[2025-03-04 19:53] VITALS: BP 136/62; PULSE 77; RESP 16; TEMP 36.8; O2SAT 100
--- NOTE | 2025-03-04 20:20 | PM.EVENT ---
Event Note Date of Service: 03/04/25 Event Note: Patient is seen at the request of Dr. Story to evaluate the urostomy and determine if there is any irritation that has cause of the bleeding. Patient was having some hematuria with a large amount of clot that was noted. Patient's clean the ostomy but did not see any site that was specifically bleeding. Today the bag was taken down by myself and there was some stringy clot in the bag with slightly blood-tinged urine in the bag although the urine coming out was clean and clear. The edges of the urostomy with the skin was examined there was no active bleeding and no evidence of any raw areas with reason to bleed. Area was little tender. Slight digitalization of the ostomy did not reveal any clot present Question whether the clot was actually coming from higher up within the urinary tract. I do not see any mucosa or skin edge causing this. Plan to empty out his bag and determine if there is any further bleeding. If it is deemed that the blood is actually coming from inside as part of the urine would then have urology re-evaluate plan to follow his H and H we will follow along Time Spent With Patient Time: Total time managing care of this patient today ____ minutes.
[2025-03-04 21:04] LABS: Glucose, Whole Blood 139 mg/dL (60-115)
[2025-03-04 22:11] LABS: Hematocrit 22.5 % (42.0-52.0); Hemoglobin 7.9 g/dl (14.0-18.0)
[2025-03-05] VITALS (8 sets, daily range): BP systolic 118–146; BP diastolic 57–71; PULSE 69–76; RESP 16–18; TEMP 36.6–37.1; O2SAT 97–100
[2025-03-05 07:46] LABS: Glucose, Whole Blood 118 mg/dL (60-115)
[2025-03-05] MEDS: Fluticasone/Vilanterol 200/25 BLST.W.DEV 1 PUFF INHALE (08:03)
[2025-03-05] MEDS: Ferrous Sulfate 324 MG TABLET.DR PO (08:23)
[2025-03-05] MEDS: Lactated Ringers 1,000 ML 50 ML IVCONT (08:30)
[2025-03-05 10:21] LABS: Hematocrit 23.0 % (42.0-52.0); Hemoglobin 7.9 g/dl (14.0-18.0)
[2025-03-05 11:13] LABS: Glucose, Whole Blood 160 mg/dL (60-115)
[2025-03-05 16:01] LABS: Glucose, Whole Blood 180 mg/dL (60-115)
--- NOTE | 2025-03-05 18:09 | HO.PM.IMPN ---
Subjective Subjective Date of Service: 03/05/25 Interval History: hematuria Review of Systems Patient denies any new complaints no fever, Urine bag still has some clots. Review of Systems: Yes all other systems are reviewed and are negative Physical Exam Exam: Exam: Appearance: Alert.? Oriented X3.? cvs: rrr, [id number] . res: air entry fair ,no rales or wheezin. abd: no rebound or guarding ,nt, bs present. : Has urostomy bag-has very little clots but otherwise clear yellowish urine ext pulses present , no cyanosis . neuro: axo3 , nonfocal Vital Signs: Vital Signs: Last Vital Signs Temp 98.5 F 03/05/25 15:16 Pulse 69 03/05/25 15:16 Resp 18 03/05/25 15:16 BP 127/58 L 03/05/25 15:16 Pulse Ox 99 03/05/25 15:16 O2 Del Method Room Air 03/05/25 15:16 BMI result Body Mass Index 25.3 Objective Data Active Medications Acetaminophen (Acetaminophen 325 Mg Tablet) 650 mg PO Q6H PRN PRN Reason: Pain, Mild 1-3,fever,headache Last Admin: 03/02/25 23:44 Dose: 650 mg Documented By: DONNA Albuterol Sulfate (Albuterol Sulfate 90 Mcg 8 Gm Inhaler) 2 puff INHALE QID PRN PRN Reason: Shortness of Breath Atorvastatin Calcium (Atorvastatin Calcium 20 Mg Tablet) 20 mg PO DAILY [facility] Last Admin: 03/05/25 08:24 Dose: 20 mg Documented By: FAIZA Cefuroxime Axetil (Cefuroxime Axetil 500 Mg Tablet) 500 mg PO Q12H [facility] Last Admin: 03/05/25 08:23 Dose: 500 mg Documented By: FAIZA Dextrose (Dextrose 50 % 25 Gm/50 Ml Syringe) 25 gm IVPUSH Q15M PRN; Protocol PRN Reason: per Hypoglycemia Standing Ord. Docusate Sodium (Docusate Sodium 100 Mg Capsule) 100 mg PO BID [facility] Last Admin: 03/05/25 08:23 Dose: 100 mg Documented By: FAIZA Ferrous Sulfate (Ferrous Sulfate 324 Mg Tablet.) 324 mg PO DAILY [facility] Last Admin: 03/05/25 08:23 Dose: 324 mg Documented By: FAIZA Fluticasone/Vilanterol (Fluticasone/Vilanterol 200/25 Blst.W.Dev) 1 puff INHALE RDAILY [facility] Last Admin: 03/05/25 08:03 Dose: 1 puff Documented By: AMY Folic Acid (Folic Acid 1 Mg Tablet) 1 mg PO DAILY [facility] Last Admin: 03/05/25 08:24 Dose: 1 mg Documented By: FAIZA Glucose (Glucose Gel 15 Gm Gel..Gram.) 15 gm PO Q15M PRN; Protocol PRN Reason: per Hypoglycemia Standing Ord. Insulin Human Lispro (Insulin Lispro 100 Unit/Ml 3 Ml Vial) 0 unit SUBCUT QIDACHS [facility]; Protocol Last Admin: 03/05/25 17:08 Dose: 2 unit Documented By: FAIZA Montelukast Sodium (Montelukast Sodium 10 Mg Tablet) 10 mg PO DAILY [facility] Last Admin: 03/05/25 08:23 Dose: 10 mg Documented By: FAIZA Multivitamins/Vitamin C (Multivitamin Tablet) 1 tab PO DAILY [facility] Last Admin: 03/05/25 08:24 Dose: 1 tab Documented By: FAIZA Polyethylene Glycol (Polyethylene Glycol 3350 17 Gm Powd.Pack) 17 gm PO DAILY [facility] Last Admin: 03/05/25 08:24 Dose: 17 gm Documented By: FAIZA Sodium Bicarbonate (Sodium Bicarbonate 650 Mg Tablet) 1,300 mg PO TID [facility] Last Admin: 03/05/25 15:10 Dose: 1,300 mg Documented By: FAIZA Valsartan (Valsartan 40 Mg Tablet) 40 mg PO DAILY [facility] On Hold: 03/03/25 08:30 Last Admin: 03/02/25 08:55 Dose: Not Given Documented By: DEBI Non-Admin Reason: Physician Held Med Labs 03/05/25 09:54 03/04/25 05:59 Labs: Laboratory Results - last 24 hr 03/04/25 03/04/25 03/05/25 13:37 21:00 07:32 POC Glucose 139 H 118 H Blood Type A Positive Antibody Screen NEGATIVE Crossmatch See Detail 03/05/25 03/05/25 11:10 15:57 POC Glucose 160 H 180 H Blood Type Antibody Screen Crossmatch Assessment and Plan (1) LUIS (acute kidney injury): Status: Acute Plan 74 years old male with PMH of asthma, diabetes, HLP, HTN, bladder cancer post resection and urostomy presented to ED for generalized weakness, chills, says he has similar symptoms when he has urinary infection. Hematuria /stoma site bleeding check h/h, inr ,type and screen H&H stable around 8, continue to monitor, bleeding is also improving Off ivf moniter site d/w urology-we will check with Urology tomorrow if question of bleeding higher up from the urinary tract. Sepsis secondary to suspected UTI: Patient meets sepsis criteria secondary to leukocytosis, tachycardia Has low-grade fever of 100.8 Platelets are low chronically not due to sepsis, in addition LFT chronically elevated also, LUIS is related to decreased p.o. intake and dehydration not due to sepsis. Lactic acid is 2, blood cultures sent, urine cultures sent. plan: switched to ceftin ,blood cultures neg,urine culture mixed endy. Patient has new lung mass on CT chest, pulmonary evaluation noted -need outpatient workup with 6-8 weeks. 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 metabolic acidosis- likely combination of sepsis, LUIS and RTA. Recommend 1300mg sodium bicarbonate PO BID. Nephrology followin Mild elevated LFTs chronically elevated, CT abdomen shows possible liver cirrhosis: Patient says never drink alcohol, will check hepatitis profile LFTs monitoring. Non-anion gap Metabolic acidosis PH normal bicarb is 13 None anion gap, lactic acid negative Patient got IV fluids in the ED, we will repeat BMP Type 2 diabetes continue SSI diabetic diet Asthma(mild intermittent): Continue home medication ambulate patient DVT prophylaxis: SCD due to anemia/ thrombocytopenia. Ongoing need of stay: Hematuria: Need H&H monitoring as well as hematuria monitoring, urology follow-up. Quality Stroke Does the patient have a stroke diagnosis?: No VTE Prior VTE?: No VTE Risk Level:: Medical - moderate - high VTE Device Contraindication: N/A - Device Ordered VTE Drug Contraindication: N/A - Med Ordered
[2025-03-05 19:08] LABS: Hematocrit 22.1 % (42.0-52.0); Hemoglobin 7.6 g/dl (14.0-18.0)
[2025-03-05 19:51] LABS: Glucose, Whole Blood 152 mg/dL (60-115)
[2025-03-06] VITALS (13 sets, daily range): BP systolic 113–151; BP diastolic 54–79; PULSE 68–85; RESP 12–18; TEMP 36.2–37; O2SAT 97–100
[2025-03-06] MEDS: Lactated Ringers 1,000 ML 50 ML IVCONT (00:21)
[2025-03-06 02:46] LABS: Hematocrit 22.0 % (42.0-52.0); Hemoglobin 7.6 g/dl (14.0-18.0); Mean Corpuscular HGB Conc 34.5 g/dl (31.0-36.0); Mean Corpuscular Hemoglobin 33.0 pg (27.0-33.0); Mean Corpuscular Volume 95.7 fL (80.0-98.0); NRBC Abs Auto 0.000 X10*3/uL (0.0-0.012); NRBC Pct Auto 0.0 /100WBC (0.0-0.2); Platelet Count 146 X10*3/uL (160-400); Red Blood Count 2.30 X10*6/uL (4.60-5.80); White Blood Count 7.1 X10*3/uL (4.8-10.8)
[2025-03-06 03:08] LABS: Alanine Aminotransferase 54 U/L (0-40); Albumin Level 3.0 g/dL (3.5-5.0); Alkaline Phosphatase 360 U/L (39-117); Anion Gap 11 (12-20); Aspartate Amino Transferase 77 U/L (5-37); Blood Urea Nitrogen 24 mg/dL (9-16); Calcium 8.1 mg/dL (8.4-10.2); Carbon Dioxide 21 mmol/L (22-29); Chloride 109 mmol/L (96-108); Creatinine Clr Calc Pharmacy 46.2; Estimated Glomerular Filt Rate > 60; Magnesium 1.9 mg/dL (1.6-2.6); Potassium 4.4 mmol/L (3.3-5.1); Sodium 137 mmol/L (135-145); Total Protein 6.1 g/dL (6.5-8.0)
[2025-03-06 06:53] LABS: Hematocrit 23.1 % (42.0-52.0); Hemoglobin 7.9 g/dl (14.0-18.0)
[2025-03-06 07:20] LABS: Glucose, Whole Blood 115 mg/dL (60-115)
[2025-03-06] MEDS: Sodium,Potassium Phosphates POWD.PACK 1 PACKET PO (08:30)
[2025-03-06] MEDS: Fluticasone/Vilanterol 200/25 BLST.W.DEV 1 PUFF INHALE (08:46)
--- NOTE | 2025-03-06 09:12 | P.PNUR_ITS ---
Subjective Subjective Date of Service: 03/06/25 Interval history: Denies abdominal pain. Persistent gross hematuria. Hb 7.9 Physical Exam 2 Vital Signs: Vital Signs: Last Vital Signs Temp 97.2 F 03/06/25 07:05 Pulse 78 03/06/25 08:48 Resp 14 03/06/25 08:48 BP 142/79 H 03/06/25 07:05 Pulse Ox 99 03/06/25 07:05 O2 Del Method Room Air 03/06/25 07:05 BMI result Body Mass Index 25.3 Urology Results Labs 03/06/25 06:34 03/06/25 02:37 Labs: Laboratory Results - last 24 hr 03/04/25 03/05/25 03/05/25 13:37 09:54 11:10 WBC RBC Hgb 7.9 L Hct 23.0 L MCV MCH MCHC RDW Plt Count MPV Absolute Nucleated RBC Nucleated RBC % (auto) Sodium Potassium Chloride Carbon Dioxide Anion Gap BUN Creatinine Estim Creat Clear Calc Estimated GFR POC Glucose 160 H Random Glucose Calcium Phosphorus Magnesium Total Bilirubin AST ALT Alkaline Phosphatase Total Protein Albumin Blood Type A Positive Antibody Screen NEGATIVE Crossmatch See Detail 03/05/25 03/05/25 03/05/25 15:57 18:59 19:45 WBC RBC Hgb 7.6 L Hct 22.1 L MCV MCH MCHC RDW Plt Count MPV Absolute Nucleated RBC Nucleated RBC % (auto) Sodium Potassium Chloride Carbon Dioxide Anion Gap BUN Creatinine Estim Creat Clear Calc Estimated GFR POC Glucose 180 H 152 H Random Glucose Calcium Phosphorus Magnesium Total Bilirubin AST ALT Alkaline Phosphatase Total Protein Albumin Blood Type Antibody Screen Crossmatch 03/06/25 03/06/25 03/06/25 02:37 06:34 07:15 WBC 7.1 RBC 2.30 L Hgb 7.6 L 7.9 L Hct 22.0 L 23.1 L MCV 95.7 MCH 33.0 MCHC 34.5 RDW 14.2 Plt Count 146 L MPV 10.6 Absolute Nucleated RBC 0.000 Nucleated RBC % (auto) 0.0 Sodium 137 Potassium 4.4 Chloride 109 H Carbon Dioxide 21 L Anion Gap 11 L BUN 24 H Creatinine 1.05 Estim Creat Clear Calc 46.2 Estimated GFR > 60 POC Glucose 115 Random Glucose 130 H Calcium 8.1 L Phosphorus 2.1 L Magnesium 1.9 Total Bilirubin 0.6 AST 77 H ALT 54 H Alkaline Phosphatase 360 H Total Protein 6.1 L Albumin 3.0 L Blood Type Antibody Screen Crossmatch Progress Note: A&P Assessment and plan (1) History of bladder cancer: Status: Acute (2) Hematuria: Status: Acute Plan Persistent Hematuria. Unclear etiology. possible endoscopy of urostomy today. Monitor Hb Time Spent With Patient Time: Total time managing care of this patient today ____ minutes. Progress Note: Quality Stroke Does the patient have a stroke diagnosis?: No
[2025-03-06] MEDS: Lactated Ringers 1,000 ML 125 ML IVCONT (10:31)
[2025-03-06 11:36] LABS: Glucose, Whole Blood 136 mg/dL (60-115)
--- NOTE | 2025-03-06 14:23 | P.CONAN_ITS ---
Documented by User: Selam Philip NP 03/06/25 14:30 HPI - Anesthesia Eval Consult details Narrative: 74 yr old male for Flex Cystoscopy,with possible of Evacuation of blood clots No recent illness No CP/SOB, walks 1 hr per day PMFSH Active Problems Active Problems: All Active Problems Low bicarbonate (Acute) Hematuria (Acute) History of bladder cancer (Acute) Abnormal CT scan, chest (Acute) Hyponatremia (Acute) Cirrhosis of liver (Acute) Mass of left lung (Acute) Metabolic acidosis (Acute) LUIS (acute kidney injury) (Acute) Sepsis (Acute) Bladder cancer (Acute) Past Medical History Medical History HTN (hypertension) Acute hyponatremia Hydronephrosis Bladder cancer Asthma Diabetes Bladder cancer Incomplete emptying of bladder due to benign prostatic hyperplasia Complicated urinary tract infection Family History Family history of problems with anesthesia: No Surgical History Surgical History History of surgery History of ileal conduit History of Problems with Anesthesia: No Social History Social History Household Members: Family Housing: House Are you a primary school childcare attendant to a significant other at home: No Do you presently have visiting nurse or other home services: No Alcohol intake: never Comment: bedside Patient Tobacco Use Status: Never used Tobacco service: No Current occupational status: retired Meds Allergies Allergy/AdvReac Type Severity Reaction Status Date / Time aspirin Allergy Unknown Verified 03/01/25 05:41 Beta-Blockers AdvReac Unknown Verified 03/01/25 05:41 (Beta-Adrenergic Bloc ibuprofen AdvReac Unknown Verified 03/01/25 05:41 Active Medications: Current Medications Acetaminophen (Acetaminophen 325 Mg Tablet) 650 mg PO Q6H PRN PRN Reason: Pain, Mild 1-3,fever,headache Last Admin: 03/02/25 23:44 Dose: 650 mg Albuterol Sulfate (Albuterol Sulfate 90 Mcg 8 Gm Inhaler) 2 puff INHALE QID PRN PRN Reason: Shortness of Breath Atorvastatin Calcium (Atorvastatin Calcium 20 Mg Tablet) 20 mg PO DAILY STEVEN Last Admin: 03/06/25 08:30 Dose: 20 mg Cefuroxime Axetil (Cefuroxime Axetil 500 Mg Tablet) 500 mg PO Q12H [facility] Last Admin: 03/06/25 08:30 Dose: 500 mg Dextrose (Dextrose 50 % 25 Gm/50 Ml Syringe) 25 gm IVPUSH Q15M PRN; Protocol PRN Reason: per Hypoglycemia Standing Ord. Docusate Sodium (Docusate Sodium 100 Mg Capsule) 100 mg PO BID [facility] Last Admin: 03/06/25 08:34 Dose: Not Given Ferrous Sulfate (Ferrous Sulfate 324 Mg Tablet.Dr) 324 mg PO DAILY [facility] Last Admin: 03/06/25 08:34 Dose: Not Given Fluticasone/Vilanterol (Fluticasone/Vilanterol 200/25 Blst.W.Dev) 1 puff INHALE RDAILY [facility] Last Admin: 03/06/25 08:46 Dose: 1 puff Folic Acid (Folic Acid 1 Mg Tablet) 1 mg PO DAILY [facility] Last Admin: 03/06/25 08:34 Dose: Not Given Glucose (Glucose Gel 15 Gm Gel..Gram.) 15 gm PO Q15M PRN; Protocol PRN Reason: per Hypoglycemia Standing Ord. Lactated Ringer's (Lr) 1,000 mls @ 80 mls/hr IVCONT .[id number] [facility] Last Admin: 03/06/25 10:31 Dose: 125 mls/hr Insulin Human Lispro (Insulin Lispro 100 Unit/Ml 3 Ml Vial) 0 unit SUBCUT QIDACHS [facility]; Protocol Last Admin: 03/06/25 11:47 Dose: Not Given Montelukast Sodium (Montelukast Sodium 10 Mg Tablet) 10 mg PO DAILY [facility] Last Admin: 03/06/25 08:34 Dose: Not Given Multivitamins/Vitamin C (Multivitamin Tablet) 1 tab PO DAILY [facility] Last Admin: 03/06/25 08:34 Dose: Not Given Polyethylene Glycol (Polyethylene Glycol 3350 17 Gm Powd.Pack) 17 gm PO DAILY [facility] Last Admin: 03/06/25 08:34 Dose: Not Given Sodium Bicarbonate (Sodium Bicarbonate 650 Mg Tablet) 1,300 mg PO TID [facility] Last Admin: 03/06/25 08:30 Dose: 1,300 mg Valsartan (Valsartan 40 Mg Tablet) 40 mg PO DAILY [facility] On Hold: 03/03/25 08:30 Last Admin: 03/02/25 08:55 Dose: Not Given Home Medications ?Medication ?Instructions ?Recorded ?Confirmed ?Last Taken ?Type blood sugar diagnostic (FreeStyle #10 ea 04/18/2112/09 Unknown History Lite Strips) montelukast 10 mg tablet 10 mg PO DAILY 04/18/2102/0802/28/25 History lancets 28 gauge (FreeStyle #100 ea 06/24/21 01/05/24 Unknown History Lancets) folic acid 1 mg tablet 1 mg PO DAILY 12/10/2103/0102/28/25 History albuterol sulfate 90 mcg/actuation 2 puff PO QID PRN S hortness Of 02/08/22 03/01/25 Unknown History aerosol inhaler Breath atorvastatin 20 mg tablet 20 mg PO DAILY 03/01/2502/0802/28/25 History ferrous sulfate 325 mg (65 mg 325 mg PO DAILY 03/01/25 03/01/25 02/28/25 History iron) tablet (iron) metformin 500 mg tablet 500 mg PO BID 03/01/2503/0102/28/25 History sitagliptin phosphate 50 mg tablet 50 mg PO DAILY 02/0803/01/25 02/28/25 History (Januvia) telmisartan 20 mg tablet 20 mg PO DAILY 03/01/2502/0802/28/25 History vitamin B complex 1 tab PO DAILY 03/01/2502/0802/28/25 History Exam Height,Weight and Vital Signs: Height 5 ft 2 in Weight 62.7 kg Last Vital Signs Temp 97.1 F 03/06/25 11:31 Pulse 76 03/06/25 11:31 Resp 17 03/06/25 11:31 BP 138/63 03/06/25 11:31 Pulse Ox 97 03/06/25 11:31 O2 Del Method Room Air 03/06/25 11:31 Pertinent Lab Results Pertinent Lab Results: Laboratory Tests 03/01/25 03/01/25 03/01/25 05:55 07:34 08:05 WBC 20.3 H RBC 2.93 L Hgb 9.7 L Hct 27.8 L MCV 94.9 MCH 33.1 H MCHC 34.9 RDW 13.4 Plt Count 121 L MPV 9.8 Absolute Nucleated RBC 0.000 Nucleated RBC % (auto) 0.0 Hold Purple Top PT INR VBG pH VBG pCO2 VBG pO2 VBG HCO3 VBG O2 Saturation VBG Base Excess Sodium 128 L Potassium 4.2 Chloride 107 Carbon Dioxide 13 L Anion Gap 12 BUN 22 H Creatinine 1.48 H Estim Creat Clear Calc 32.7 Estimated GFR 46 POC Glucose Random Glucose 183 H Osmolality Lactic Acid 2.0 Calcium 8.6 D Phosphorus Magnesium Total Bilirubin 1.0 AST 53 H ALT 34 Alkaline Phosphatase 268 H Total Protein 7.1 Albumin 3.6 Urine Color Yellow Urine Appearance Cloudy Urine pH 6.5 Ur Specific [place] 1.015 Urine Protein 100 (2+) H Urine Glucose (UA) Negative Urine Ketones Negative Urine Blood Small (1+) H Urine Nitrite Negative Ur Leukocyte Esterase Moderate (2+) H Urine RBC 0-2 Urine WBC 6-10 Ur Squamous Epith Cells 6-10 Urine Bacteria 3+ Hyaline Casts 6-10 Urine Osmolality 351 L Ur Random Sodium 65.0 Ur Random Potassium 18.9 Ur Random Chloride 50.0 Hepatitis A IgM Ab Hep Bs Antigen Hep Bs Antibody Hep B Core Total Ab Hepatitis C Ab (EIA) Influenza Type A (PCR) NEGATIVE Influenza Type B (PCR) NEGATIVE RSV RNA Qual (PCR) NEGATIVE SARS-CoV-2 RNA (RT-PCR) NEGATIVE Blood Type Antibody Screen Crossmatch 03/01/25 03/01/25 03/01/25 10:01 11:06 16:28 WBC RBC Hgb Hct MCV MCH MCHC RDW Plt Count MPV Absolute Nucleated RBC Nucleated RBC % (auto) Hold Purple Top PT INR VBG pH 7.41 VBG pCO2 18 VBG pO2 155 VBG HCO3 12 L VBG O2 Saturation 100.0 VBG Base Excess -10.5 Sodium Potassium Chloride Carbon Dioxide Anion Gap BUN Creatinine Estim Creat Clear Calc Estimated GFR POC Glucose 158 H Random Glucose Osmolality 267 L Lactic Acid Calcium Phosphorus Magnesium Total Bilirubin AST ALT Alkaline Phosphatase Total Protein Albumin Urine Color Urine Appearance Urine pH Ur Specific [place] Urine Protein Urine Glucose (UA) Urine Ketones Urine Blood Urine Nitrite Ur Leukocyte Esterase Urine RBC Urine WBC Ur Squamous Epith Cells Urine Bacteria Hyaline Casts Urine Osmolality Ur Random Sodium Ur Random Potassium Ur Random Chloride Hepatitis A IgM Ab Hep Bs Antigen Hep Bs Antibody Hep B Core Total Ab Hepatitis C Ab (EIA) Influenza Type A (PCR) Influenza Type B (PCR) RSV RNA Qual (PCR) SARS-CoV-2 RNA (RT-PCR) Blood Type Antibody Screen Crossmatch 03/01/25 03/01/25 03/02/25 16:53 20:15 06:08 WBC 19.6 H RBC 3.03 L Hgb 9.9 L Hct 28.4 L MCV 93.7 MCH 32.7 MCHC 34.9 RDW 13.6 Plt Count 121 L MPV 10.7 Absolute Nucleated RBC 0.000 Nucleated RBC % (auto) 0.0 Hold Purple Top PT INR VBG pH VBG pCO2 VBG pO2 VBG HCO3 VBG O2 Saturation VBG Base Excess Sodium 128 L 127 L Potassium 3.7 3.6 Chloride 108 104 Carbon Dioxide 13 L 14 L Anion Gap 11 L 13 BUN 24 H 26 H Creatinine 1.35 1.38 Estim Creat Clear Calc 35.9 35.1 Estimated GFR 51 50 POC Glucose 148 H Random Glucose 162 H 182 H Osmolality Lactic Acid Calcium 8.3 L 8.6 Phosphorus Magnesium Total Bilirubin 1.2 H AST 37 ALT 30 Alkaline Phosphatase 236 H Total Protein 7.1 Albumin 3.4 L Urine Color Urine Appearance Urine pH Ur Specific [place] Urine Protein Urine Glucose (UA) Urine Ketones Urine Blood Urine Nitrite Ur Leukocyte Esterase Urine RBC Urine WBC Ur Squamous Epith Cells Urine Bacteria Hyaline Casts Urine Osmolality Ur Random Sodium Ur Random Potassium Ur Random Chloride Hepatitis A IgM Ab Nonreactive Hep Bs Antigen Negative Hep Bs Antibody NONREACTIVE Hep B Core Total Ab Nonreactive Hepatitis C Ab (EIA) Nonreactive Influenza Type A (PCR) Influenza Type B (PCR) RSV RNA Qual (PCR) SARS-CoV-2 RNA (RT-PCR) Blood Type Antibody Screen Crossmatch 03/02/25 03/02/25 03/02/25 07:21 11:04 16:28 WBC RBC Hgb Hct MCV MCH MCHC RDW Plt Count MPV Absolute Nucleated RBC Nucleated RBC % (auto) Hold Purple Top PT INR VBG pH VBG pCO2 VBG pO2 VBG HCO3 VBG O2 Saturation VBG Base Excess Sodium Potassium Chloride Carbon Dioxide Anion Gap BUN Creatinine Estim Creat Clear Calc Estimated GFR POC Glucose 215 H 183 H 136 H Random Glucose Osmolality Lactic Acid Calcium Phosphorus Magnesium Total Bilirubin AST ALT Alkaline Phosphatase Total Protein Albumin Urine Color Urine Appearance Urine pH Ur Specific [place] Urine Protein Urine Glucose (UA) Urine Ketones Urine Blood Urine Nitrite Ur Leukocyte Esterase Urine RBC Urine WBC Ur Squamous Epith Cells Urine Bacteria Hyaline Casts Urine Osmolality Ur Random Sodium Ur Random Potassium Ur Random Chloride Hepatitis A IgM Ab Hep Bs Antigen Hep Bs Antibody Hep B Core Total Ab Hepatitis C Ab (EIA) Influenza Type A (PCR) Influenza Type B (PCR) RSV RNA Qual (PCR) SARS-CoV-2 RNA (RT-PCR) Blood Type Antibody Screen Crossmatch 03/02/25 03/03/25 03/03/25 20:53 07:15 08:05 WBC RBC Hgb Hct MCV MCH MCHC RDW Plt Count MPV Absolute Nucleated RBC Nucleated RBC % (auto) Hold Purple Top PT INR VBG pH VBG pCO2 VBG pO2 VBG HCO3 VBG O2 Saturation VBG Base Excess Sodium 136 Potassium 3.6 Chloride 115 H Carbon Dioxide 13 L Anion Gap 12 BUN 26 H Creatinine 1.21 Estim Creat Clear Calc 40.1 Estimated GFR 58 POC Glucose 185 H 109 Random Glucose 102 Osmolality Lactic Acid Calcium 8.6 Phosphorus Magnesium Total Bilirubin AST ALT Alkaline Phosphatase Total Protein Albumin Urine Color Urine Appearance Urine pH Ur Specific [place] Urine Protein Urine Glucose (UA) Urine Ketones Urine Blood Urine Nitrite Ur Leukocyte Esterase Urine RBC Urine WBC Ur Squamous Epith Cells Urine Bacteria Hyaline Casts Urine Osmolality Ur Random Sodium Ur Random Potassium Ur Random Chloride Hepatitis A IgM Ab Hep Bs Antigen Hep Bs Antibody Hep B Core Total Ab Hepatitis C Ab (EIA) Influenza Type A (PCR) Influenza Type B (PCR) RSV RNA Qual (PCR) SARS-CoV-2 RNA (RT-PCR) Blood Type Antibody Screen Crossmatch 03/03/25 03/03/25 03/03/25 09:23 09:24 11:21 WBC 9.4 RBC 2.70 L Hgb 8.9 L Hct 25.6 L MCV 94.8 MCH 33.0 MCHC 34.8 RDW 13.9 Plt Count 131 L MPV 11.1 Absolute Nucleated RBC 0.000 Nucleated RBC % (auto) 0.0 Hold Purple Top PT INR VBG pH VBG pCO2 VBG pO2 VBG HCO3 VBG O2 Saturation VBG Base Excess Sodium 137 Potassium 3.5 Chloride 116 H Carbon Dioxide 12 L Anion Gap 13 BUN 26 H Creatinine 1.18 Estim Creat Clear Calc 41.1 Estimated GFR > 60 POC Glucose 145 H Random Glucose 150 H Osmolality Lactic Acid Calcium 8.6 Phosphorus Magnesium Total Bilirubin AST ALT Alkaline Phosphatase Total Protein Albumin Urine Color Urine Appearance Urine pH Ur Specific [place] Urine Protein Urine Glucose (UA) Urine Ketones Urine Blood Urine Nitrite Ur Leukocyte Esterase Urine RBC Urine WBC Ur Squamous Epith Cells Urine Bacteria Hyaline Casts Urine Osmolality Ur Random Sodium Ur Random Potassium Ur Random Chloride Hepatitis A IgM Ab Hep Bs Antigen Hep Bs Antibody Hep B Core Total Ab Hepatitis C Ab (EIA) Influenza Type A (PCR) Influenza Type B (PCR) RSV RNA Qual (PCR) SARS-CoV-2 RNA (RT-PCR) Blood Type Antibody Screen Crossmatch 03/03/25 03/03/25 03/03/25 15:00 16:03 20:26 WBC RBC Hgb Hct MCV MCH MCHC RDW Plt Count MPV Absolute Nucleated RBC Nucleated RBC % (auto) Hold Purple Top PT INR VBG pH VBG pCO2 VBG pO2 VBG HCO3 VBG O2 Saturation VBG Base Excess Sodium Potassium Chloride Carbon Dioxide Anion Gap BUN Creatinine Estim Creat Clear Calc Estimated GFR POC Glucose 180 H 168 H 171 H Random Glucose Osmolality Lactic Acid Calcium Phosphorus Magnesium Total Bilirubin AST ALT Alkaline Phosphatase Total Protein Albumin Urine Color Urine Appearance Urine pH Ur Specific [place] Urine Protein Urine Glucose (UA) Urine Ketones Urine Blood Urine Nitrite Ur Leukocyte Esterase Urine RBC Urine WBC Ur Squamous Epith Cells Urine Bacteria Hyaline Casts Urine Osmolality Ur Random Sodium Ur Random Potassium Ur Random Chloride Hepatitis A IgM Ab Hep Bs Antigen Hep Bs Antibody Hep B Core Total Ab Hepatitis C Ab (EIA) Influenza Type A (PCR) Influenza Type B (PCR) RSV RNA Qual (PCR) SARS-CoV-2 RNA (RT-PCR) Blood Type Antibody Screen Crossmatch 03/04/25 03/04/25 03/04/25 05:59 07:42 11:22 WBC RBC Hgb Hct MCV MCH MCHC RDW Plt Count MPV Absolute Nucleated RBC Nucleated RBC % (auto) Hold Purple Top SEE NOTE PT INR VBG pH VBG pCO2 VBG pO2 VBG HCO3 VBG O2 Saturation VBG Base Excess Sodium 138 Potassium 4.1 Chloride 113 H Carbon Dioxide 17 L Anion Gap 12 BUN 29 H Creatinine 1.18 Estim Creat Clear Calc 41.1 Estimated GFR > 60 POC Glucose 93 177 H Random Glucose 90 Osmolality Lactic Acid Calcium 8.6 Phosphorus Magnesium Total Bilirubin AST ALT Alkaline Phosphatase Total Protein Albumin Urine Color Urine Appearance Urine pH Ur Specific [place] Urine Protein Urine Glucose (UA) Urine Ketones Urine Blood Urine Nitrite Ur Leukocyte Esterase Urine RBC Urine WBC Ur Squamous Epith Cells Urine Bacteria Hyaline Casts Urine Osmolality Ur Random Sodium Ur Random Potassium Ur Random Chloride Hepatitis A IgM Ab Hep Bs Antigen Hep Bs Antibody Hep B Core Total Ab Hepatitis C Ab (EIA) Influenza Type A (PCR) Influenza Type B (PCR) RSV RNA Qual (PCR) SARS-CoV-2 RNA (RT-PCR) Blood Type Antibody Screen Crossmatch 03/04/25 03/04/25 03/04/25 13:36 13:37 16:07 WBC RBC Hgb 8.0 L Hct 23.4 L MCV MCH MCHC RDW Plt Count MPV Absolute Nucleated RBC Nucleated RBC % (auto) Hold Purple Top PT 12.2 INR 1.1 VBG pH VBG pCO2 VBG pO2 VBG HCO3 VBG O2 Saturation VBG Base Excess Sodium Potassium Chloride Carbon Dioxide Anion Gap BUN Creatinine Estim Creat Clear Calc Estimated GFR POC Glucose 157 H Random Glucose Osmolality Lactic Acid Calcium Phosphorus Magnesium Total Bilirubin AST ALT Alkaline Phosphatase Total Protein Albumin Urine Color Urine Appearance Urine pH Ur Specific [place] Urine Protein Urine Glucose (UA) Urine Ketones Urine Blood Urine Nitrite Ur Leukocyte Esterase Urine RBC Urine WBC Ur Squamous Epith Cells Urine Bacteria Hyaline Casts Urine Osmolality Ur Random Sodium Ur Random Potassium Ur Random Chloride Hepatitis A IgM Ab Hep Bs Antigen Hep Bs Antibody Hep B Core Total Ab Hepatitis C Ab (EIA) Influenza Type A (PCR) Influenza Type B (PCR) RSV RNA Qual (PCR) SARS-CoV-2 RNA (RT-PCR) Blood Type A Positive Antibody Screen NEGATIVE Crossmatch See Detail 03/04/25 03/04/25 03/04/25 19:07 21:00 21:50 WBC RBC Hgb 8.3 L 7.9 L Hct 24.6 L 22.5 L MCV MCH MCHC RDW Plt Count MPV Absolute Nucleated RBC Nucleated RBC % (auto) Hold Purple Top PT INR VBG pH VBG pCO2 VBG pO2 VBG HCO3 VBG O2 Saturation VBG Base Excess Sodium Potassium Chloride Carbon Dioxide Anion Gap BUN Creatinine Estim Creat Clear Calc Estimated GFR POC Glucose 139 H Random Glucose Osmolality Lactic Acid Calcium Phosphorus Magnesium Total Bilirubin AST ALT Alkaline Phosphatase Total Protein Albumin Urine Color Urine Appearance Urine pH Ur Specific [place] Urine Protein Urine Glucose (UA) Urine Ketones Urine Blood Urine Nitrite Ur Leukocyte Esterase Urine RBC Urine WBC Ur Squamous Epith Cells Urine Bacteria Hyaline Casts Urine Osmolality Ur Random Sodium Ur Random Potassium Ur Random Chloride Hepatitis A IgM Ab Hep Bs Antigen Hep Bs Antibody Hep B Core Total Ab Hepatitis C Ab (EIA) Influenza Type A (PCR) Influenza Type B (PCR) RSV RNA Qual (PCR) SARS-CoV-2 RNA (RT-PCR) Blood Type Antibody Screen Crossmatch 03/05/25 03/05/25 03/05/25 07:32 09:54 11:10 WBC RBC Hgb 7.9 L Hct 23.0 L MCV MCH MCHC RDW Plt Count MPV Absolute Nucleated RBC Nucleated RBC % (auto) Hold Purple Top PT INR VBG pH VBG pCO2 VBG pO2 VBG HCO3 VBG O2 Saturation VBG Base Excess Sodium Potassium Chloride Carbon Dioxide Anion Gap BUN Creatinine Estim Creat Clear Calc Estimated GFR POC Glucose 118 H 160 H Random Glucose Osmolality Lactic Acid Calcium Phosphorus Magnesium Total Bilirubin AST ALT Alkaline Phosphatase Total Protein Albumin Urine Color Urine Appearance Urine pH Ur Specific [place] Urine Protein Urine Glucose (UA) Urine Ketones Urine Blood Urine Nitrite Ur Leukocyte Esterase Urine RBC Urine WBC Ur Squamous Epith Cells Urine Bacteria Hyaline Casts Urine Osmolality Ur Random Sodium Ur Random Potassium Ur Random Chloride Hepatitis A IgM Ab Hep Bs Antigen Hep Bs Antibody Hep B Core Total Ab Hepatitis C Ab (EIA) Influenza Type A (PCR) Influenza Type B (PCR) RSV RNA Qual (PCR) SARS-CoV-2 RNA (RT-PCR) Blood Type Antibody Screen Crossmatch 03/05/25 03/05/25 03/05/25 15:57 18:59 19:45 WBC RBC Hgb 7.6 L Hct 22.1 L MCV MCH MCHC RDW Plt Count MPV Absolute Nucleated RBC Nucleated RBC % (auto) Hold Purple Top PT INR VBG pH VBG pCO2 VBG pO2 VBG HCO3 VBG O2 Saturation VBG Base Excess Sodium Potassium Chloride Carbon Dioxide Anion Gap BUN Creatinine Estim Creat Clear Calc Estimated GFR POC Glucose 180 H 152 H Random Glucose Osmolality Lactic Acid Calcium Phosphorus Magnesium Total Bilirubin AST ALT Alkaline Phosphatase Total Protein Albumin Urine Color Urine Appearance Urine pH Ur Specific [place] Urine Protein Urine Glucose (UA) Urine Ketones Urine Blood Urine Nitrite Ur Leukocyte Esterase Urine RBC Urine WBC Ur Squamous Epith Cells Urine Bacteria Hyaline Casts Urine Osmolality Ur Random Sodium Ur Random Potassium Ur Random Chloride Hepatitis A IgM Ab Hep Bs Antigen Hep Bs Antibody Hep B Core Total Ab Hepatitis C Ab (EIA) Influenza Type A (PCR) Influenza Type B (PCR) RSV RNA Qual (PCR) SARS-CoV-2 RNA (RT-PCR) Blood Type Antibody Screen Crossmatch 03/06/25 03/06/25 03/06/25 02:37 06:34 07:15 WBC 7.1 RBC 2.30 L Hgb 7.6 L 7.9 L Hct 22.0 L 23.1 L MCV 95.7 MCH 33.0 MCHC 34.5 RDW 14.2 Plt Count 146 L MPV 10.6 Absolute Nucleated RBC 0.000 Nucleated RBC % (auto) 0.0 Hold Purple Top PT INR VBG pH VBG pCO2 VBG pO2 VBG HCO3 VBG O2 Saturation VBG Base Excess Sodium 137 Potassium 4.4 Chloride 109 H Carbon Dioxide 21 L Anion Gap 11 L BUN 24 H Creatinine 1.05 Estim Creat Clear Calc 46.2 Estimated GFR > 60 POC Glucose 115 Random Glucose 130 H Osmolality Lactic Acid Calcium 8.1 L Phosphorus 2.1 L Magnesium 1.9 Total Bilirubin 0.6 AST 77 H ALT 54 H Alkaline Phosphatase 360 H Total Protein 6.1 L Albumin 3.0 L Urine Color Urine Appearance Urine pH Ur Specific [place] Urine Protein Urine Glucose (UA) Urine Ketones Urine Blood Urine Nitrite Ur Leukocyte Esterase Urine RBC Urine WBC Ur Squamous Epith Cells Urine Bacteria Hyaline Casts Urine Osmolality Ur Random Sodium Ur Random Potassium Ur Random Chloride Hepatitis A IgM Ab Hep Bs Antigen Hep Bs Antibody Hep B Core Total Ab Hepatitis C Ab (EIA) Influenza Type A (PCR) Influenza Type B (PCR) RSV RNA Qual (PCR) SARS-CoV-2 RNA (RT-PCR) Blood Type Antibody Screen Crossmatch 03/06/25 11:33 WBC RBC Hgb Hct MCV MCH MCHC RDW Plt Count MPV Absolute Nucleated RBC Nucleated RBC % (auto) Hold Purple Top PT INR VBG pH VBG pCO2 VBG pO2 VBG HCO3 VBG O2 Saturation VBG Base Excess Sodium Potassium Chloride Carbon Dioxide Anion Gap BUN Creatinine Estim Creat Clear Calc Estimated GFR POC Glucose 136 H Random Glucose Osmolality Lactic Acid Calcium Phosphorus Magnesium Total Bilirubin AST ALT Alkaline Phosphatase Total Protein Albumin Urine Color Urine Appearance Urine pH Ur Specific [place] Urine Protein Urine Glucose (UA) Urine Ketones Urine Blood Urine Nitrite Ur Leukocyte Esterase Urine RBC Urine WBC Ur Squamous Epith Cells Urine Bacteria Hyaline Casts Urine Osmolality Ur Random Sodium Ur Random Potassium Ur Random Chloride Hepatitis A IgM Ab Hep Bs Antigen Hep Bs Antibody Hep B Core Total Ab Hepatitis C Ab (EIA) Influenza Type A (PCR) Influenza Type B (PCR) RSV RNA Qual (PCR) SARS-CoV-2 RNA (RT-PCR) Blood Type Antibody Screen Crossmatch Narrative Narrative: EKG 09/2024 in [facility] NSR rate 78 Airway Mallampati Class: II TM Dist: >3cm Neck ROM: Full Loose/Missing/Broken Teeth: Yes and Lower Heart: RRR, systolic murmur Lungs: inspiratory crackles left lower lobe, otherwise CTA Assessment and Plan Final Anesthetic Review Family History of Problems with Anesthesia: No History of Problems with Anesthesia: No Documented by User: Jenelle Stone MD 03/06/25 17:01 [facility] Past Medical History Medical History HTN (hypertension) Acute hyponatremia Hydronephrosis Bladder cancer Asthma Diabetes Bladder cancer Incomplete emptying of bladder due to benign prostatic hyperplasia Complicated urinary tract infection Surgical History Surgical History History of surgery History of ileal conduit Social History Social History Household Members: Family Housing: House Are you a primary school childcare attendant to a significant other at home: No Do you presently have visiting nurse or other home services: No Alcohol intake: never Comment: bedside Patient Tobacco Use Status: Never used Tobacco service: No Current occupational status: retired Meds Allergies Allergy/AdvReac Type Severity Reaction Status Date / Time aspirin Allergy Unknown Verified 03/01/25 05:41 Beta-Blockers AdvReac Unknown Verified 03/01/25 05:41 (Beta-Adrenergic Bloc ibuprofen AdvReac Unknown Verified 03/01/25 05:41 Home Medications ?Medication ?Instructions ?Recorded ?Confirmed ?Last Taken ?Type blood sugar diagnostic (ArabellaStyle #10 ea 04/18/2112/09 Unknown History Lite Strips) montelukast 10 mg tablet 10 mg PO DAILY 04/18/2102/0802/28/25 History lancets 28 gauge (FreeStyle #100 ea 06/24/21 01/05/24 Unknown History Lancets) folic acid 1 mg tablet 1 mg PO DAILY 12/10/2103/0102/28/25 History albuterol sulfate 90 mcg/actuation 2 puff PO QID PRN S hortness Of 02/08/22 03/01/25 Unknown History aerosol inhaler Breath atorvastatin 20 mg tablet 20 mg PO DAILY 03/01/2502/0802/28/25 History ferrous sulfate 325 mg (65 mg 325 mg PO DAILY 03/01/25 03/01/25 02/28/25 History iron) tablet (iron) metformin 500 mg tablet 500 mg PO BID 03/01/2503/0102/28/25 History sitagliptin phosphate 50 mg tablet 50 mg PO DAILY 02/0803/01/25 02/28/25 History (Januvia) telmisartan 20 mg tablet 20 mg PO DAILY 03/01/2502/0802/28/25 History vitamin B complex 1 tab PO DAILY 03/01/2502/0802/28/25 History Assessment and Plan Assessment Anesthesia Assessment: Anesthesia Plan Discussed and Chart Reviewed Final Anesthetic Review NPO: Yes ASA Class: III and Emergency Final Preanesthetic Review: No Changes in Pt Med Stat, Meds/Allgs Chart Reviewed, Consent Obtained/Reviewed and Anes Risks/Benef Reviewed Patient Risk: Intermediate Procedure Risk: Low Anesthetic Plan Anesthetic Plan: GA Disposition: Standard PACU
--- NOTE | 2025-03-06 14:44 | MHC.CM.PN ---
EMR REVIEWED, PER MD/UROLOGY PLAN FOR ENDOSCOPY OF UROSTOMY TODAY, ANTIC PT WILL DC BY TOMORROW, CM WILL CONT TO FOLLOW DC NEEDS
--- NOTE | 2025-03-06 15:03 | PC.NURSE ---
Pt with right urostomy bag - red tinged urine with large dark red/brown clots in bag. Pt denies pain. aware.
--- NOTE | 2025-03-06 15:50 | P.PNIM_ITS ---
Subjective Subjective Date of Service: 03/06/25 Interval History: Hematuria Review of Systems Hematuria somewhat improving, has some blood clot Physical Exam 2 Exam: Exam: Appearance: Alert.? Oriented X3.? cvs: rrr, [id number] . res: air entry fair ,no rales or wheezin. abd: no rebound or guarding ,nt, bs present. : Has urostomy bag-has very little clots but otherwise clear yellowish urine ext pulses present , no cyanosis . neuro: axo3 , nonfocal. Vital Signs: Vital Signs: Last Vital Signs Temp 98.6 F 03/06/25 14:50 Pulse 77 03/06/25 14:50 Resp 12 03/06/25 14:50 BP 148/61 H 03/06/25 14:50 Pulse Ox 100 03/06/25 14:50 O2 Del Method Room Air 03/06/25 14:50 BMI result Body Mass Index 25.3 Objective Data Active Medications Acetaminophen (Acetaminophen 325 Mg Tablet) 650 mg PO Q6H PRN PRN Reason: Pain, Mild 1-3,fever,headache Last Admin: 03/02/25 23:44 Dose: 650 mg Documented By: DONNA Albuterol Sulfate (Albuterol Sulfate 90 Mcg 8 Gm Inhaler) 2 puff INHALE QID PRN PRN Reason: Shortness of Breath Atorvastatin Calcium (Atorvastatin Calcium 20 Mg Tablet) 20 mg PO DAILY [facility] Last Admin: 03/06/25 08:30 Dose: 20 mg Documented By: AV Cefuroxime Axetil (Cefuroxime Axetil 500 Mg Tablet) 500 mg PO Q12H [facility] Last Admin: 03/06/25 08:30 Dose: 500 mg Documented By: AV Dextrose (Dextrose 50 % 25 Gm/50 Ml Syringe) 25 gm IVPUSH Q15M PRN; Protocol PRN Reason: per Hypoglycemia Standing Ord. Docusate Sodium (Docusate Sodium 100 Mg Capsule) 100 mg PO BID [facility] Last Admin: 03/06/25 08:34 Dose: Not Given Documented By: AV Non-Admin Reason: npo Ferrous Sulfate (Ferrous Sulfate 324 Mg Tablet.) 324 mg PO DAILY [facility] Last Admin: 03/06/25 08:34 Dose: Not Given Documented By: AV Non-Admin Reason: npo Fluticasone/Vilanterol (Fluticasone/Vilanterol 200/25 Blst.W.Dev) 1 puff INHALE RDAILY [facility] Last Admin: 03/06/25 08:46 Dose: 1 puff Documented By: MARTIN Folic Acid (Folic Acid 1 Mg Tablet) 1 mg PO DAILY [facility] Last Admin: 03/06/25 08:34 Dose: Not Given Documented By: AV Non-Admin Reason: npo Glucose (Glucose Gel 15 Gm Gel..Gram.) 15 gm PO Q15M PRN; Protocol PRN Reason: per Hypoglycemia Standing Ord. Lactated Ringer's (Lr) 1,000 mls @ 80 mls/hr IVCONT .[id number] [facility] Last Admin: 03/06/25 10:31 Dose: 125 mls/hr Documented By: AV Insulin Human Lispro (Insulin Lispro 100 Unit/Ml 3 Ml Vial) 0 unit SUBCUT QIDACHS [facility]; Protocol Last Admin: 03/06/25 11:47 Dose: Not Given Documented By: AV Non-Admin Reason: npo Montelukast Sodium (Montelukast Sodium 10 Mg Tablet) 10 mg PO DAILY [facility] Last Admin: 03/06/25 08:34 Dose: Not Given Documented By: AV Non-Admin Reason: npo Multivitamins/Vitamin C (Multivitamin Tablet) 1 tab PO DAILY [facility] Last Admin: 03/06/25 08:34 Dose: Not Given Documented By: AV Non-Admin Reason: npo Polyethylene Glycol (Polyethylene Glycol 3350 17 Gm Powd.Pack) 17 gm PO DAILY [facility] Last Admin: 03/06/25 08:34 Dose: Not Given Documented By: AV Non-Admin Reason: npo Sodium Bicarbonate (Sodium Bicarbonate 650 Mg Tablet) 1,300 mg PO TID [facility] Last Admin: 03/06/25 14:51 Dose: Not Given Documented By: AV Non-Admin Reason: pt off unit Valsartan (Valsartan 40 Mg Tablet) 40 mg PO DAILY [facility] On Hold: 03/03/25 08:30 Last Admin: 03/02/25 08:55 Dose: Not Given Documented By: DEBI Non-Admin Reason: Physician Held Med Labs 03/06/25 06:34 03/06/25 02:37 Labs: Laboratory Results - last 24 hr 03/04/25 03/05/25 03/05/25 13:37 15:57 19:45 MCV MCH MCHC RDW Plt Count MPV Absolute Nucleated RBC Nucleated RBC % (auto) Anion Gap Estim Creat Clear Calc Estimated GFR POC Glucose 180 H 152 H Random Glucose Calcium Phosphorus Magnesium Total Bilirubin AST ALT Alkaline Phosphatase Total Protein Albumin Crossmatch See Detail 03/06/25 03/06/25 03/06/25 02:37 07:15 11:33 MCV 95.7 MCH 33.0 MCHC 34.5 RDW 14.2 Plt Count 146 L MPV 10.6 Absolute Nucleated RBC 0.000 Nucleated RBC % (auto) 0.0 Anion Gap 11 L Estim Creat Clear Calc 46.2 Estimated GFR > 60 POC Glucose 115 136 H Random Glucose 130 H Calcium 8.1 L Phosphorus 2.1 L Magnesium 1.9 Total Bilirubin 0.6 AST 77 H ALT 54 H Alkaline Phosphatase 360 H Total Protein 6.1 L Albumin 3.0 L Crossmatch Microbiology Microbiology Results: Microbiology 03/01/25 08:31 Blood Culture - Final Blood - Venous No growth after 5 days. 03/01/25 07:34 Blood Culture - Final Blood - Venous No growth after 5 days. Assessment and Plan (1) LUIS (acute kidney injury): Status: Acute Plan 74 years old male with PMH of asthma, diabetes, HLP, HTN, bladder cancer post resection and urostomy presented to ED for generalized weakness, chills, says he has similar symptoms when he has urinary infection. Hematuria /stoma site bleeding check h/h remain near 8, moniter h/h ,type and screen ivf moniter site d/w urology-possible urology procedure. Sepsis secondary to suspected UTI: Patient meets sepsis criteria secondary to leukocytosis, tachycardia Has low-grade fever of 100.8 Platelets are low chronically not due to sepsis, in addition LFT chronically elevated also, LUIS is related to decreased p.o. intake and dehydration not due to sepsis. Lactic acid is 2, blood cultures sent, urine cultures sent. plan: switched to ceftin ,blood cultures neg,urine culture mixed endy. Patient has new lung mass on CT chest, pulmonary evaluation noted -need outpatient workup with 6-8 weeks. 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 metabolic acidosis- likely combination of sepsis, LUIS and RTA. Recommend 1300mg sodium bicarbonate PO BID. Nephrology followin Mild elevated LFTs chronically elevated, CT abdomen shows possible liver cirrhosis: Patient says never drink alcohol, will check hepatitis profile LFTs monitoring. Non-anion gap Metabolic acidosis PH normal bicarb is 13 None anion gap, lactic acid negative Patient got IV fluids in the ED, we will repeat BMP Type 2 diabetes continue SSI diabetic diet Asthma(mild intermittent): Continue home medication ambulate patient DVT prophylaxis: SCD due to anemia/ thrombocytopenia. Ongoing need of stay: Hematuria: Need H&H monitoring as well as hematuria monitoring, urology follow-up. Quality Stroke Does the patient have a stroke diagnosis?: No VTE Prior VTE?: No VTE Risk Level:: Medical - moderate - high VTE Device Contraindication: N/A - Device Ordered VTE Drug Contraindication: N/A - Med Ordered
--- NOTE | 2025-03-06 17:12 | MHC.SHP ---
Pre-Procedural Eval Section A - 24 Hr Update-Section A only Date of Service: 03/06/25 The patient is an INPATIENT: Yes Changes since office visit: No Cold of Flu in the past 2 weeks, No New Medical Problems, No Changes in Medication and No Patient answered all questions The patient has been examined within 24 hours of the surgical procedure. The History & Physical has been completed within 30 days and I have reviewed it.: Yes Section B - Complete if H&P > 30 days Chief Complaint: Abnormal CT scan of the chest Details of Present Illness: Hematuria - plan cystoscopy Allergies: Allergies Allergy/AdvReac Type Severity Reaction Status Date / Time aspirin Allergy Unknown Verified 03/01/25 05:41 Beta-Blockers AdvReac Unknown Verified 03/01/25 05:41 (Beta-Adrenergic Bloc ibuprofen AdvReac Unknown Verified 03/01/25 05:41 Review of Systems Sugical H&P ROS: Negative: Constitution, Cardiovascular, Respiratory, Neurological, Psychiatric, Hem-Onc, Allergic/Immunologic, Gastrointestinal, Genitourinary, Musculoskeletal, Integumentary, Endocrine and Eyes/Ears/Nose/Throat Exam Surgical H&P Exam: Normal: HEENT, Normal: Heart, Normal: Lungs, Normal: Extremities, Normal: Abdomen, Normal: Skin and Normal: Neurological Plan Diagnosis/Plan: Unchanged I have reviewed the history and physical and performed a pertinent physical examination on my patient. No changes have occurred unless specified. Time Spent With Patient Time: Total time managing care of this patient today ____ minutes.
--- NOTE | 2025-03-06 18:21 | W.PM.OPN ---
Operative Note Operative Note Date of Service: 03/06/25 Narrative: PreOperative Diagnosis: Hematuria from ileal conduit Post Operative Diagnosis: Bleeding from edge of stoma with normal conduit Procedure: 1) control of bleeding from edge of stoma with sutures 2) ileoscopy - cystoscopy Surgeon: Dr Mauro Narayan Anesthesia: Sedation Indications for procedure: Hematuria with low hematocrit Procedure: After informed consent was verified the patient was brought to the operating room and placed in a supine position. Anesthesia was administered per protocol. The patient was prepped and draped in a sterile fashion. Safety pause time-out was performed. Antibiotics being given. Current stoma bag was removed. Examination of stomal edge showed oozing quite profusely from the inferior edge of the stoma. Using Adson forceps edge was lifted and the area below fulgurated. This was not able to get full adequate control. Using 3-0 Vicryl a series of [id number] sutures was placed through the subdermal area catching the edge of the stoma. Three were placed before adequate control was gained. Decision was made to place Dermabond before cystoscopy was performed in order to prevent contamination. Using my little finger we were able to find the inferior access through the fascia into the remaining portion of the ileum. An open-ended catheter was placed. A rigid cystoscope was placed over the open-ended catheter and navigated into the proximal portion of the ileal conduit. The conduit was examined. No areas of redness of bleeding was seen. 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 After completion of cystoscopy a clean stomal dressing was applied. He was transferred in stable condition to the recovery area. Hematuria had resolved. Pathology: [] Drains: []
[2025-03-06 19:30] LABS: Hematocrit 25.4 % (42.0-52.0); Hemoglobin 8.5 g/dl (14.0-18.0); Mean Corpuscular HGB Conc 33.5 g/dl (31.0-36.0); Mean Corpuscular Hemoglobin 32.8 pg (27.0-33.0); Mean Corpuscular Volume 98.1 fL (80.0-98.0); NRBC Abs Auto 0.000 X10*3/uL (0.0-0.012); NRBC Pct Auto 0.0 /100WBC (0.0-0.2); Platelet Count 154 X10*3/uL (160-400); Red Blood Count 2.59 X10*6/uL (4.60-5.80); White Blood Count 7.1 X10*3/uL (4.8-10.8)
[2025-03-06 21:08] LABS: Glucose, Whole Blood 209 mg/dL (60-115)
[2025-03-07 03:47] VITALS: BP 102/55; PULSE 70; RESP 18; TEMP 36.6; O2SAT 96
[2025-03-07] MEDS: Lactated Ringers 1,000 ML 80 ML IVCONT (06:32)
[2025-03-07 06:57] LABS: MANUAL DIFF FLAG NO
[2025-03-07 07:11] LABS: Hematocrit 23.0 % (42.0-52.0); Hemoglobin 7.6 g/dl (14.0-18.0); Imm Gran Abs Auto 0.07 X10*3/uL (0.00-0.03); Imm Gran Pct Auto 1.2 % (0.0-0.4); Lymphocytes Absolute Auto 1.1 X10*3/uL (1.2-4.9); Mean Corpuscular HGB Conc 33.0 g/dl (31.0-36.0); Mean Corpuscular Hemoglobin 32.5 pg (27.0-33.0); Mean Corpuscular Volume 98.3 fL (80.0-98.0); NRBC Abs Auto 0.000 X10*3/uL (0.0-0.012); NRBC Pct Auto 0.0 /100WBC (0.0-0.2); Platelet Count 159 X10*3/uL (160-400); Red Blood Count 2.34 X10*6/uL (4.60-5.80); White Blood Count 5.8 X10*3/uL (4.8-10.8)
[2025-03-07 07:21] LABS: Anion Gap 11 (12-20); Blood Urea Nitrogen 18 mg/dL (9-16); Calcium 8.1 mg/dL (8.4-10.2); Carbon Dioxide 25 mmol/L (22-29); Chloride 109 mmol/L (96-108); Creatinine Clr Calc Pharmacy 51.0; Estimated Glomerular Filt Rate > 60; Potassium 4.6 mmol/L (3.3-5.1); Sodium 140 mmol/L (135-145)
[2025-03-07 07:26] LABS: Glucose, Whole Blood 98 mg/dL (60-115)
[2025-03-07 07:38] VITALS: BP 138/61; PULSE 78; RESP 18; TEMP 36.3; O2SAT 98
[2025-03-07 07:43] VITALS: PULSE 78; RESP 18; O2SAT 98
[2025-03-07] MEDS: Fluticasone/Vilanterol 200/25 BLST.W.DEV 1 PUFF INHALE (07:43)
--- NOTE | 2025-03-07 08:38 | HO.POSTANES ---
Post Anesthesia Evaluation Post Anesthesia Evaluation Date of Service: 03/07/25 Vital Signs: Vital Signs Temp Pulse Resp BP Pulse Ox O2 Del Method 03/07/25 07:43 78 18 03/07/25 07:38 97.3 F 78 18 138/61 98 Room Air 03/07/25 03:47 97.9 F 70 18 102/55 L 96 Room Air 03/06/25 23:37 97.5 F 85 18 113/54 L 100 Room Air Anesthesia: Monitored Mental Status: Awake Pain Control: Satisfactory (nurse advised pt requesting pain medication) Nausea/Vomiting: None Hydration: Adequate Anesthesia-Related Issues: No Anes. Related Issues
[2025-03-07] MEDS: Ferrous Sulfate 324 MG TABLET.DR PO (08:43)
[2025-03-07] MEDS: oxyCODONE HCl Immed Release 5 MG TABLET PO (09:27)
[2025-03-07 09:42] LABS: Hematocrit 24.8 % (42.0-52.0); Hemoglobin 8.2 g/dl (14.0-18.0)
[2025-03-07 11:07] VITALS: BP 122/56; PULSE 76; RESP 18; TEMP 37.2; O2SAT 97
[2025-03-07 11:16] LABS: Glucose, Whole Blood 228 mg/dL (60-115)
[2025-03-07 12:33] LABS: Alanine Aminotransferase 46 U/L (0-40); Albumin Level 2.8 g/dL (3.5-5.0); Alkaline Phosphatase 318 U/L (39-117); Aspartate Amino Transferase 61 U/L (5-37); Total Protein 5.9 g/dL (6.5-8.0)
--- NOTE | 2025-03-07 16:34 | MHC.CM.PN ---
Second IMM given 03/07. Pt is medically cleared for discharge home self-care with family support, his family will transport him home today.
== END 2025-03-07 16:49 | disposition home or self-care (01) | DRG 854 ==
LOC: HO.ED 07:19 → HO.EDOVER 09:28 → HO.IMC 12:30
PROVIDERS: Internal Medicine; Nurse Practitioner Family; Student in an Organized Health Care Education/Training Program; Urology; Admitting Provider Internal Medicine; Emergency Provider Emergency Medicine; PCP Internal Medicine; Visit Provider Internal Medicine
PROC: 0TJB8ZZ Inspection of Bladder, Via Natural or Artificial Opening Endoscopic (ICD-10-PCS; CPT 52000; principal; 2025-03-06 16:20)
DX: A41.9 Sepsis, unspecified organism (principal); E22.2 Syndrome of inappropriate secretion of antidiuretic hormone; N17.9 Acute kidney failure, unspecified; E87.20 Acidosis, unspecified; N39.0 Urinary tract infection, site not specified; K94.11 Enterostomy hemorrhage; R31.0 Gross hematuria; E86.0 Dehydration; D69.6 Thrombocytopenia, unspecified; J45.20 Mild intermittent asthma, uncomplicated; K74.60 Unspecified cirrhosis of liver; Z20.822 Contact with and (suspected) exposure to COVID-19; Z90.6 Acquired absence of other parts of urinary tract; Z85.51 Personal history of malignant neoplasm of bladder; Z79.84 Long term (current) use of oral hypoglycemic drugs; Z79.899 Other long term (current) drug therapy
CPT/HCPCS: 36415; 71045; 71250; 74176; 80048; 80053; 80076; 81001; 82436; 82803; 82947; 83605; 83735; 83930; 83935; 84100; 84133; 84300; 85014; 85018; 85025; 85027; 85610; 86704; 86706; 86709; 86803; 86850; 86900; 86901; 86923; 87040; 87086; 87340; 87637; 94640; 97161; 99285; C1758; J0692; J1171; J2003; J2704; J3010; J7120

== ENCOUNTER → 2025-03-01 07:12 | Outpatient (BNV) | payer OTHER, MEDICAID, SELFPAY | PROVIDERS: Emergency Provider Emergency Medicine; Visit Provider Radiology Diagnostic Radiology | DX: K74.60 Unspecified cirrhosis of liver (principal); D38.1 Neoplasm of uncertain behavior of trachea, bronchus and lung; R50.9 Fever, unspecified | CPT/HCPCS: 71045; 71250; 74176 ==

== ENCOUNTER → 2025-03-01 08:52 | Outpatient (BNV) | payer OTHER, MEDICAID, SELFPAY | PROVIDERS: Admitting Provider Internal Medicine; Emergency Provider Emergency Medicine; Visit Provider Internal Medicine Pulmonary Disease | DX: R93.89 Abnormal findings on diagnostic imaging of other specified body structures (principal); R91.8 Other nonspecific abnormal finding of lung field | CPT/HCPCS: 99222 ==

== ENCOUNTER → 2025-03-01 08:52 | Outpatient (BNV) | payer OTHER, MEDICAID, SELFPAY | PROVIDERS: Admitting Provider Internal Medicine; Emergency Provider Emergency Medicine; Visit Provider Nurse Practitioner Family | DX: N17.9 Acute kidney failure, unspecified (principal); A41.9 Sepsis, unspecified organism; R65.20 Severe sepsis without septic shock; R91.8 Other nonspecific abnormal finding of lung field; E87.1 Hypo-osmolality and hyponatremia | CPT/HCPCS: 99222; 99232 ==

== ENCOUNTER → 2025-03-01 08:52 | Outpatient (BNV) | payer OTHER, MEDICAID, SELFPAY | PROVIDERS: Admitting Provider Internal Medicine; Emergency Provider Emergency Medicine; Visit Provider Internal Medicine | DX: N17.9 Acute kidney failure, unspecified (principal) | CPT/HCPCS: 99222; 99231; 99239; 99499 ==

== ENCOUNTER → 2025-03-01 08:52 | Outpatient (BNV) | payer OTHER, MEDICAID, SELFPAY | PROVIDERS: Admitting Provider Internal Medicine; Emergency Provider Emergency Medicine; PCP Internal Medicine; Visit Provider Urology | DX: Z85.51 Personal history of malignant neoplasm of bladder (principal); R31.9 Hematuria, unspecified; A41.9 Sepsis, unspecified organism; R65.20 Severe sepsis without septic shock; N17.9 Acute kidney failure, unspecified; N39.0 Urinary tract infection, site not specified; T83.9XXA Unspecified complication of genitourinary prosthetic device, implant and graft, initial encounter | CPT/HCPCS: 44380; 99222; 99232 ==

== ENCOUNTER 2025-03-12 12:17 | Inpatient (IN) | payer OTHER, SELFPAY ==
--- OUTSIDE RECORDS SUMMARY | 2024-05-02 11:30 | XMS_ITS ---
Author Organization Darrian Ziegler III, MD Address [address] [place] [address] Care Team Providers Care Bridge Painter Helper Name Role Phone Tony PINK, [facility] Primary Care Provider Darrian Smith [phone] Allergies Allergen (clinical drug ingredient) Drug/Non Drug [...] Date Provider Diagnosis Darrian Ziegler III, MD [address] [place] [address] [place], [place] [address] 05/02/2024 Darrian Ziegler HTN (hypertension) I 10 [...] the liver has been done by his railroad surveyor, Dr. Burnett. It showed thickening of the [...] OV Provider Name:Darrian Ziegler, 05/04/2025 10:30:00 AM, [address] [place] [address] [address] [facility] [place], [address], Progress Notes * Candelario AGOSTOchandu KDOB: (74 yo M)Acc No.[id number]:05/02/2024 Progress Notes Patient: Zehra GALICIA Provider: Yahaira Ziegler MD :1950 A ge:74 Y S ex:Male Date:05/02/2024 Address:[address] [place], [place] [phone] Pcp:Hilary Jimenez MD Subjective: * Chief Complaints: [...] born in [place] and now lives in [place], [place]. He is and has several children. [...] Temp:97.2, Wt-k.06. * P ast Orders: Lab:Comprehensive [place]. Cate l Fast * Collection Date 04/15/2024 [...] the liver has been done by his railroad surveyor, Dr. Burnett. It showed thickening of the [...] MD Date: 0 05/02/2024 Generated for Printi ng/Fabonig/eTransmitting on: 0 03/12/2025 12:48 PM EDT History and Physical Notes * HPI (History of Present Illness) Category Sub-Category Detail Notes COVID-19 Screening Questions Have you had any new onset fever, chills, cough, congestion, sore throat, shortness of breath, muscle aches?: No Have you been exposed to the virus withi n the last 10 days?: No Have you travelled internationally in [facility] last 10 days?: No Have you [...]
[2025-03-12 12:21] VITALS: BP 162/75; PULSE 82; RESP 17; TEMP 36.9; O2SAT 100; BMI 20.7
--- OUTSIDE RECORDS SUMMARY | 2025-03-12 12:49 | XMS_ITS | Patient Health Record ---
Author Organization [facility] Address [address] [place] [address] Care Team Providers Care Prestidigitator Name Role Phone Hilary Boss Primary Care Provider Unavailab Joe Hardy Jr Unavailable [phone] Allergies Allergen (clinical drug ingredient) Drug/Non Drug [...] Provider Speciality Internal M edicine Referred Organization [facility] Referred Provider Joe Echavarria Jr Referred Address [address],[place], [place],[address], Referred Provider Specialty Gastroentero logy General Notes Brooklyn Barkley 2024 10:14:44 AM > REQUESTED HERACLIO REFEFFAL FROM DR BOSS'S OFFICE FOR VISIT WITH DR ECHAVARRIA ON 02-15-25, Brooklyn Barkley 02/15/2025 11:39:50 AM >no referral required since patient is in the same [place] of care Referral Priority Routine Medications Medication [...] Risk Notes Problem Oesophageal varices without bleeding (69241242) Secondary esophageal varices without bleeding (I85.10) Active confirmed Problem Portal hypertension (70513908) Portal hypertension (K76.6) Active confirmed Problem 619939263 Liver mass (R16.0) Active confirmed Problem 647571656 Liver lesion (K76.9) Active confirmed Problem [id number] Abnormal CT scan, liver (R93.2) Active confirmed Problem 89717224 Cirrhosis of liver without ascites, unspecified hepatic cirrhosis type (K74.60) Active confirmed Vital Signs Temperature 97.7 degrees Fahrenheit 02/15/2025 Blood pressure diastolic 01 mm Hg 02/15/2025 Height 62 in 02/15/2025 Blood pressure systolic 001 mm Hg 02/15/2025 Weight 120 lbs 02/15/2025 BMI 21.95 kg/m2 02/15/2025 Encounters Encounter Location Date Provider Diagnosis [facility] [address] [place] [address] 05/12/2024 Joe Echavarria Jr Liver lesion K76.9 and Cirrhosis of liver without ascites, unspecified hepatic cirrhosis type K74.60 [facility] [address] [place] [address] 02/15/2025 Joe Echavarria Jr Abnormal findings in stool R19.5 [facility] [address] [place] [address] 04/27/2024 Joe Echavarria Jr Liver mass R16.0 [facility] [address] [place] [address] 12/26/2024 Joe Echavarria Jr [facility] [address] [place] [address] 02/28/2025 Joe Echavarria Jr [facility] [address] [place] [address] 02/28/2025 Joe Reynaord Assessments Encounter Date Diagnosis (ICD Code) Assessment Notes Treatment Notes Treatment Clinical Notes Section Notes 05/12/2024 Liver lesion (ICD-10 - K76.9) Liver disease - resources material was printed. Please obtain the laboratory testing and MRI imaging we discussed today while you are in [facility]. We discussed hepatic cirrhosis today. We discussed [...] in this office will be in december. 02/15/2025 Abnormal findings in stool (ICD-10 - R19.5) We discussed that the results of a positive Cologuard test today as well as its false positive and false negative rates, and findings at the time of colonoscopy for those who have positive results. There is a less than 5% chance of colon cancer. We have recommended further evaluation with colonoscopy and upper endoscopy. This will be arranged. He is advised to stop iron 1 week before the procedure, Januvia 2 days before the procedure, and metformin 1 day before the procedure. He understands risks and benefits and agrees to proceed. 04/27/2024 Liver mass (ICD-10 - R16.0) Plan [...] 02/15/2025 Next Appt Details Provider Name:Joe estrada Jr, 04/04/2025 11:10:00 AM, [address] [place] [address] , [place], [place], [phone], Insurance Providers Payer Name Payer Address Payer Phone Subscriber Number Group Number Insured Name Patient Relationship to Insured Coverage Start Date Coverage End Date [facility] [address] [place] [phone] [id number] Alexia Agosto Self - patient is the insured [place] [address] [place] [phone] [id number] Alexia Agosto Self - patient is the insured Medical (General) History Medical History History ICD Code diabetes asthma Hypertension Bladder cancer Cirrhosis, likely secondary to fatty lonnie er, compensated Surgical History Surgery Date(Month/Year) bladder cancer Radical cystectomy, ileal conduit Hospitalization History Reason Date(Month/Year)
[2025-03-12 12:51] LABS: MANUAL DIFF FLAG NO
[2025-03-12 12:53] LABS: Hematocrit 23.5 % (42.0-52.0); Hemoglobin 7.5 g/dl (14.0-18.0); Imm Gran Abs Auto 0.05 X10*3/uL (0.00-0.03); Imm Gran Pct Auto 0.8 % (0.0-0.4); Lymphocytes Absolute Auto 0.9 X10*3/uL (1.2-4.9); Mean Corpuscular HGB Conc 31.9 g/dl (31.0-36.0); Mean Corpuscular Hemoglobin 32.3 pg (27.0-33.0); Mean Corpuscular Volume 101.3 fL (80.0-98.0); NRBC Abs Auto 0.000 X10*3/uL (0.0-0.012); NRBC Pct Auto 0.0 /100WBC (0.0-0.2); Platelet Count 186 X10*3/uL (160-400); Red Blood Count 2.32 X10*6/uL (4.60-5.80); White Blood Count 6.0 X10*3/uL (4.8-10.8)
[2025-03-12 12:57] LABS: INTERNATIONAL NORM RATIO 1.1 (0.9-1.1); Prothrombin Time 13.0 SEC (10.9-12.4)
[2025-03-12 13:00] LABS: Partial Thromboplastin Time 37.0 SEC (26.7-34.1)
[2025-03-12 13:07] LABS: Alanine Aminotransferase 35 U/L (0-40); Albumin Level 3.0 g/dL (3.5-5.0); Alkaline Phosphatase 332 U/L (39-117); Anion Gap 13 (12-20); Aspartate Amino Transferase 58 U/L (5-37); Blood Urea Nitrogen 12 mg/dL (9-16); Calcium 8.5 mg/dL (8.4-10.2); Carbon Dioxide 25 mmol/L (22-29); Chloride 107 mmol/L (96-108); Creatinine Clr Calc Pharmacy 49.2; Estimated Glomerular Filt Rate > 60; Magnesium 1.8 mg/dL (1.6-2.6); Potassium 4.7 mmol/L (3.3-5.1); Sodium 140 mmol/L (135-145); Total Protein 6.5 g/dL (6.5-8.0)
[2025-03-12 13:09] VITALS: BP 145/65; PULSE 73; RESP 16; TEMP 36.8; O2SAT 100
[2025-03-12 14:08] VITALS: BP 153/74; PULSE 74; RESP 16; O2SAT 100
--- NOTE | 2025-03-12 14:15 | ED.MALEGU ---
HPI - Male Genitourinary General Chief complaint: Urogenital-Male Stated complaint: BLOOD IN URINE BAG Time Seen by Provider: 03/12/25 14:15 History of Present Illness ED Provider: Osmany DOS SANTOS Narrative: The patient is a 74-year-old male with a history of bladder cancer. He has had a bladder resection followed by a urostomy. He also has a history of asthma, diabetes hypertension, and hyperlipidemia. He was recently hospitalized from March 01 to March 07. He has been admitted for an acute kidney injury but while in hospital developed hematuria from his urostomy and was taken to the operating room on March 06 because of the hematuria. In the operating room Dr. Narayan found a site of bleeding at the stomal edge which was oozing quite profusely. The tissue was fulgurated. Three 3-0 Vicryl [id number] sutures were placed in the subdermal area. Ultimately these controlled the bleeding. The patient was discharged the following day. He was discharged on cefuroxime although blood in urine cultures were negative. A urine culture had grown mixed endy. The patient says that today he was feeling well. He ate breakfast. He has a bowel movement and at the time that he had the bowel movement he noticed that he was having new bleeding into his urostomy bag. He comes to the emergency room. No fever, sweats, chills. No nausea or vomiting. The patient is not on anticoagulation. Related Data Home Medications ?Medication ?Instructions ?Recorded ?Confirmed blood sugar diagnostic (FreeStyle #10 ea 04/18/21 01/05/24 Lite Strips) montelukast 10 mg tablet 10 mg PO DAILY 04/18/21 03/12/25 lancets 28 gauge (FreeStyle #100 ea 06/24/21 01/05/24 Lancets) folic acid 1 mg tablet 1 mg PO DAILY 12/10/21 03/12/25 albuterol sulfate 90 mcg/actuation 2 puff PO QID PRN Shortness Of 02/08/22 03/12/25 aerosol inhaler Breath atorvastatin 20 mg tablet 20 mg PO DAILY 03/01/25 03/12/25 ferrous sulfate 325 mg (65 mg 325 mg PO DAILY 03/01/25 03/12/25 iron) tablet (iron) metformin 500 mg tablet 500 mg PO BID 03/01/25 03/12/25 sitagliptin phosphate 50 mg tablet 50 mg PO DAILY 03/01/25 03/12/25 (Januvia) telmisartan 20 mg tablet 20 mg PO DAILY 03/01/25 03/12/25 vitamin B complex 1 tab PO DAILY 03/01/25 03/12/25 Previous Rx's ?Medication ?Instructions ?Recorded budesonide-formoterol HFA 160 2 puff inhalation Q12H #10.2 grams 01/26/23 mcg-4.5 mcg/actuation aerosol inhaler (Symbicort) ostomy supplies (MicroHesive Stoma #60 grams 01/14/24 Paste) ostomy supplies 4 X 4 wafer #30 wafers 01/14/24 (Stomahesive Skin Barrier) urinary bag 10 (Assura Urostomy #10 ea 01/14/24 Pouch) bisacodyl 5 mg tablet,delayed 5 mg PO BEDTIME PRN constipation 03/04/25 release (Dulcolax (bisacodyl)) 30 days #30 tabs cefuroxime axetil 500 mg tablet 500 mg PO Q12H #18 tabs 03/04/25 docusate sodium 100 mg capsule 100 mg PO DAILY PRN constipation 03/04/25 (Colace) #30 caps oxycodone 5 mg tablet 5 mg PO Q6H PRN Pain, Severe (Pain 03/07/25 Scale 7-10) #20 tabs Allergies Allergy/AdvReac Type Severity Reaction Status Date / Time aspirin Allergy Unknown Verified 03/12/25 12:22 Beta-Blockers AdvReac Unknown Verified 03/12/25 12:22 (Beta-Adrenergic Bloc ibuprofen AdvReac Unknown Verified 03/12/25 12:22 Review of Systems Review of Systems: Yes all other systems are reviewed and are negative [facility] Past Medical History Medical History HTN (hypertension) Acute hyponatremia Hydronephrosis Bladder cancer Asthma Diabetes Bladder cancer Incomplete emptying of bladder due to benign prostatic hyperplasia Complicated urinary tract infection Surgical History History of surgery History of ileal conduit Social History Social History Household Members: Spouse and Family Housing: House Are you a primary career technical education teacher to a significant other at home: No Do you presently have visiting nurse or other home services: Yes (kassy) Alcohol intake: never Comment: bedside Patient Tobacco Use Status: Never used Tobacco Smoked in Last 30 Days: No Use of substances other than those prescribed or required for medical reasons: No Have you been hit, kicked, punched, or otherwise hurt by someone within the past year? If so, by whom?: No Do you feel safe in your current relationship?: Yes Is there a partner from a previous relationship who is making you feel unsafe now?: No Are you made to feel afraid or neglected: No Advance Directives: Yes Advance Directives Information Provided: Yes Advance Directives on File: No Advance Directives Date on File: 03/12/25 Do you have a plan to hurt others: No Plan Recently lost weight without trying: No Nutrition Risks: No Nutritional Risk Poor oral hygiene: No service: No Current occupational status: retired Physical Exam Vital Signs: Vital Signs: Last Vital Signs Temp 98.3 F 03/12/25 15:10 Pulse 74 03/12/25 15:10 Resp 18 03/12/25 15:10 BP 147/65 H 03/12/25 15:10 Pulse Ox 100 03/12/25 15:10 O2 Del Method Room Air 03/12/25 15:10 BMI result Body Mass Index 20.7 Const: Other: The patient is a 74-year-old male who looks frail and chronically ill but who does not look acutely ill or uncomfortable. He is very pleasant and cooperative. HEENT: Other: The face is symmetrical. ?Mucous membranes moist. Eyes: Other: Pupils are round equal, conjunctivae are clear, extraocular movements intact Neck: Neck: Yes full ROM Resp: Effort & Inspection: normal respiratory effort Auscultation: clear to auscultation bilaterally Cardio: Rate: regular rate Rhythm: regular rhythm Heart sounds: S1 normal heart sound present and S2 normal heart sound present GI: Other: The patient has a protuberant abdomen that is soft and nontender. There is a urostomy bag in the right lower abdomen. There is bloody urine and clot in the bag. Skin: Other: The skin is dry and unremarkable Neuro: Other: The patient is awake and alert. Mental status is normal. Cranial nerves are grossly intact. He moves his extremities symmetrically and appropriately. Grossly neurologically intact. Extrem: Other: No peripheral edema General: Yes full ROM Medications Administered Generic Name Dose Route Start Last Admin Trade Name Freq PRN Reason Stop Dose Admin Cefuroxime Axetil 500 mg 03/12/25 17:00 03/12/25 17:28 Cefuroxime Axetil 500 Mg Tablet PO 500 mg Q12H STEVEN Administration Discontinued Medications Generic Name Dose Route Start Last Admin Trade Name Freq PRN Reason Stop Dose Admin Lactated Ringer's 500 mls @ 999 mls/hr 03/12/25 14:45 03/12/25 15:29 Lr IV 03/12/25 15:15 Infused .Q31M STEVEN Infusion Medical Decision Making Medical Decision Making [facility] Narrative: The patient is a very pleasant although frail 74-year-old who went to the operating room a week ago because of hematuria related to his ileostomy. The bleeding has been coming from just inside his stoma. He is not on anticoagulation. He was discharged from the hospital 6 days ago and has been doing well until today when he had a recurrence of bleeding in his urine. He had quite a lot of clot in his urostomy bag. His hemoglobin is 7.5 which is stable. Urine function is stable. He is nontoxic. The case was discussed with Dr. Paulson of Urology. The patient will be admitted to the hospitalist service for observation and possible additional trip to the operating room if bleeding persists. Lab Data 03/12/25 12:47 03/12/25 12:47 Labs: Lab Results 03/12/25 03/12/25 03/12/25 Range/Units 12:47 14:12 14:54 WBC 6.0 (4.8-10.8) X10*3/uL RBC 2.32 L (4.60-5.80) X10*6/uL Hgb 7.5 L (14.0-18.0) g/dl Hct 23.5 L (42.0-52.0) % MCV 101.3 H (80.0-98.0) fL MCH 32.3 (27.0-33.0) pg MCHC 31.9 (31.0-36.0) g/dl RDW 15.2 (11.0-16.0) % Plt Count 186 (160-400) X10*3/uL MPV 9.9 (9.4-12.4) fL Immature Gran % (Auto) 0.8 H (0.0-0.4) % Neut % (Auto) 68.2 (45-73) % Lymph % (Auto) 15.1 L (20-40) % Nelson % (Auto) 8.1 (2-11) % Eos % (Auto) 7.1 H (0-4) % Baso % (Auto) 0.7 (0-2) % Lymph # (Auto) 0.9 L (1.2-4.9) X10*3/uL Nelson # (Auto) 0.5 (0.1-1.2) X10*3/uL Eos # (Auto) 0.4 (0.0-0.4) X10*3/uL Baso # (Auto) 0.0 (0.0-0.2) X10*3/uL Abs Immat Gran (auto) 0.05 H (0.00-0.03) X10*3/uL Absolute Neuts (auto) 4.1 (2.0-8.3) x10*3/uL Absolute Nucleated RBC 0.000 (0.0-0.012) X10*3/uL Nucleated RBC % (auto) 0.0 (0.0-0.2) /100WBC PT 13.0 H (10.9-12.4) SEC INR 1.1 (0.9-1.1) APTT 37.0 H (26.7-34.1) SEC Sodium 140 (135-145) mmol/L Potassium 4.7 (3.3-5.1) mmol/L Chloride 107 (96-108) mmol/L Carbon Dioxide 25 (22-29) mmol/L Anion Gap 13 (12-20) BUN 12 (9-16) mg/dL Creatinine 1.05 (0.5-1.4) mg/dL Estim Creat Clear Calc 49.2 Estimated GFR > 60 Random Glucose 168 H (60-115) mg/dL Calcium 8.5 (8.4-10.2) mg/dL Magnesium 1.8 (1.6-2.6) mg/dL Total Bilirubin 0.6 (0.0-1.0) mg/dL AST 58 H (5-37) U/L ALT 35 (0-40) U/L Alkaline Phosphatase 332 H (39-117) U/L Total Protein 6.5 (6.5-8.0) g/dL Albumin 3.0 L (3.5-5.0) g/dL Urine Color RED Urine Appearance Turbid Urine pH 8.0 (5.0-9.0) Ur Specific [place] 1.020 (1.005-1.025) Urine Protein 300 (3+) H (Neg-Trace) mg/dL Urine Glucose (UA) Negative (Negative) mg/dL Urine Ketones Negative (Negative) mg/dL Urine Blood Large (3+) H (Negative) Urine Nitrite Negative (Negative) Ur Leukocyte Esterase Trace H (Negative) Urine RBC >20 H (0-2) /HPF Urine WBC 0-5 (0-5) /HPF Ur Squamous Epith Cells 0-2 (0-2) /HPF Urine Bacteria Trace (None Seen) Hyaline Casts 0-2 (0-2) /LPF Blood Type A Positive Antibody Screen NEGATIVE Discharge Plan Discharge Clinical Impression: Hematuria Patient Disposition: Admitted As Inpatient Interventions: Admission Worksheet (ED) Last Done: 03/12/25 17:11 Discharge Date/Time: 03/12/25 17:55
--- NOTE | 2025-03-12 14:16 | PC.NURSE ---
pt ambulated to the restroom w/ a strong/steady gait. no use of assistive devices needed. urostomy bag emptied. amanda red blood w/ large clots noted to urostomy bag. pt assisted back into bed. urine specimen obtained/sent to lab by tech. pt waiting to be picked up by provider at this time. bedside for support. plan of care ongoing. call parra placed within reach.
[2025-03-12 14:27] LABS: Appearance Urine Turbid; Glucose Urine UA Negative (Negative); PH 8.0 (5.0-9.0); Specific Gravity - Urine 1.020 (1.005-1.025); UMIC TRIGGER UACC YES
--- NOTE | 2025-03-12 14:47 | ECG_ITS ---
Test Reason : HEMATURIA Blood Pressure : */* mmHG Vent. Rate : 76 BPM Atrial Rate : 76 BPM P-R Int : 144 ms QRS Dur : 84 ms QT Int : 400 ms P-R-T Axes : 24 -47 91 degrees QTcB Int : 450 ms Normal sinus rhythm Left axis deviation Nonspecific T wave abnormality Abnormal ECG When compared with ECG of 27-May-2021 12:15, T wave inversion no longer evident in Anterior leads Referred By: Mango Ceron Electronically Signed By: GEETHA SEE
[2025-03-12] MEDS: Lactated Ringers 500 ML 999 ML IV (14:58)
[2025-03-12 15:10] VITALS: BP 147/65; PULSE 74; RESP 18; TEMP 36.8; O2SAT 100
--- NOTE | 2025-03-12 15:24 | PC.NURSE ---
urostomy bag continues to fill w/ amanda red blood w/ clots s/p previously emptying urostomy. pt notified/aware that he is to remain NPO at this time as patient is currently in physician observation/pending possible general surgery consult. 18gIV placed in the left AC. additional 22gIV placed in the right hand. labs obtained/sent to lab by tech. IVF infusing per provider order. ekg obtained by tech. pt placed on the acupressurist. vital signs remain stable and up to date at this time. pt otherwise declines any episodes of dizziness/lightheadedness. resting in no apparent distress w/ family bedside. plan of care ongoing. call parra placed within reach.
--- NOTE | 2025-03-12 16:37 | PHA.MEDREC ---
Pharmacy Consult ? Medication Reconciliation Pharmacy has completed the medication reconciliation, utilized discharge packet from 03/07/25.
--- NOTE | 2025-03-12 17:06 | PM.IMHP ---
History of Present Illness Date of Service: 03/12/25 Attending physician on admission: Ventura Lima Chief Complaint: Hematuria Pt is a 74-year-old male with a PMH significant for?asthma, [id number] type 2 diabetes, HLD, HTN, and hx of bladder cancer s/p cystectomy and ileal loop urostomy who presents to the ED with?gross hematuria in ostomy bag. Pt was recently admitted to the hospital for a prolonged stay from 03/01-03/07 where he was admitted to hospital for sepsis secondary to UTI. Hospital stay complicated by gross hematuria wth clots and bleeding from edge of stoma. Pt was taken to the OR by Dr. Narayan found source of bleeding just inside stoma of his urostomy. Sutures were placed and hemostasis achieved. Pt was discharged from the hospital on Thursday, and reports did well up until this morning when he noticed he has ostomy bag had filled with blood with clots again. Pt reports he otherwise feels fine without any acute medical complaints. Denies any abdominal pain. No lightheadedness or dizziness. Denies shortness or breath or difficulty breathing. No chest pain/pressure, palpitations. In the ED pt was hypertensive up to 162/75, vitals otherwise stable and WNL. Labs were significant for H&H 7.5/23.5, similar to baseline; AST 58, alk-phos 332, and albumin 3.0, all similar to baseline. No significant electrolyte abnormalities. UA showing gross hematuria with urine blood and RBCs. Negative for UTI. EKG demonstrated normal sinus rhythm without evidence of significant ST elevations or depressions. Pt was treated in the ED with IVF and cefuroxime p.o.. ED provider contacted Urology who requested admission to medicine with Urology consult in the morning for possible procedure in the OR in the morning. Pt is admitted to the hospital for treatment and further evaluation of hematuria concerning for recurrent urostomy bleed. Review of Systems Review of Systems: Negative except for that which is stated in the HPI. FORMERLY [facility], [facility] Medical History HTN (hypertension) Acute hyponatremia Hydronephrosis Bladder cancer Asthma Diabetes Bladder cancer Incomplete emptying of bladder due to benign prostatic hyperplasia Complicated urinary tract infection Surgical History History of surgery History of ileal conduit Social History Household Members: Spouse and Family Housing: House Are you a primary director medicare sales to a significant other at home: No Do you presently have visiting nurse or other home services: Yes (kassy) Alcohol intake: never Comment: bedside Patient Tobacco Use Status: Never used Tobacco Smoked in Last 30 Days: No Use of substances other than those prescribed or required for medical reasons: No Have you been hit, kicked, punched, or otherwise hurt by someone within the past year? If so, by whom?: No Do you feel safe in your current relationship?: Yes Is there a partner from a previous relationship who is making you feel unsafe now?: No Are you made to feel afraid or neglected: No Advance Directives: Yes Advance Directives Information Provided: Yes Advance Directives on File: No Advance Directives Date on File: 03/12/25 Do you have a plan to hurt others: No Plan Recently lost weight without trying: No Nutrition Risks: No Nutritional Risk Poor oral hygiene: No service: No Current occupational status: retired [employer] Allergies Allergy/AdvReac Type Severity Reaction Status Date / Time aspirin Allergy Unknown Verified 03/12/25 12:22 Beta-Blockers AdvReac Unknown Verified 03/12/25 12:22 (Beta-Adrenergic Bloc ibuprofen AdvReac Unknown Verified 03/12/25 12:22 Active Medications: Current Medications Albuterol Sulfate (Albuterol Sulfate 90 Mcg 8 Gm Inhaler) 2 puff INHALE QID PRN PRN Reason: Shortness of Breath Atorvastatin Calcium (Atorvastatin Calcium 20 Mg Tablet) 20 mg PO DAILY STEVEN Bisacodyl (Bisacodyl 5 Mg Tablet.Dr) 5 mg PO BEDTIME PRN PRN Reason: Constipation Cefuroxime Axetil (Cefuroxime Axetil 500 Mg Tablet) 500 mg PO Q12H STEVEN Docusate Sodium (Docusate Sodium 100 Mg Capsule) 100 mg PO DAILY PRN PRN Reason: Constipation Folic Acid (Folic Acid 1 Mg Tablet) 1 mg PO DAILY STEVEN Montelukast Sodium (Montelukast Sodium 10 Mg Tablet) 10 mg PO DAILY STEVEN Multivitamins/Vitamin C (Multivitamin Tablet) 1 tab PO DAILY STEVEN Non-Formulary Medication (Budesonide-Formoterol [Symbicort]) 2 puff INHALE Q12H COUNTS INCLUDE 234 BEDS AT THE [facility] Non-Formulary Medication (Ferrous Sulfate [Iron]) 325 mg PO DAILY COUNTS INCLUDE 234 BEDS AT THE [facility] Non-Formulary Medication (Telmisartan) 20 mg PO DAILY COUNTS INCLUDE 234 BEDS AT THE [facility] Oxycodone HCl (Oxycodone Hcl Immed Release 5 Mg Tablet) 5 mg PO Q6H PRN PRN Reason: Pain, Severe (Pain Scale 7-10) Sitagliptin Phosphate (Sitagliptin Phosphate 50 Mg Tablet) 50 mg PO DAILY COUNTS INCLUDE 234 BEDS AT THE [facility] Home Medications ?Medication ?Instructions ?Recorded ?Confirmed ?Last Taken ?Type blood sugar diagnostic (FreeStyle #10 ea 04/18/21 01/05/24 Unknown History Lite Strips) montelukast 10 mg tablet 10 mg PO DAILY 04/18/21 03/12/25 02/28/25 History lancets 28 gauge (FreeStyle #100 ea 06/24/21 01/05/24 Unknown History Lancets) folic acid 1 mg tablet 1 mg PO DAILY 12/10/21 03/12/25 02/28/25 History albuterol sulfate 90 mcg/actuation 2 puff PO QID PRN Shortness Of 02/08/22 03/12/25 Unknown History aerosol inhaler Breath atorvastatin 20 mg tablet 20 mg PO DAILY 03/01/25 03/12/25 02/28/25 History ferrous sulfate 325 mg (65 mg 325 mg PO DAILY 03/01/25 03/12/25 02/28/25 History iron) tablet (iron) metformin 500 mg tablet 500 mg PO BID 03/01/25 03/12/25 02/28/25 History sitagliptin phosphate 50 mg tablet 50 mg PO DAILY 03/01/25 03/12/25 02/28/25 History (Januvia) telmisartan 20 mg tablet 20 mg PO DAILY 03/01/25 03/12/25 02/28/25 History vitamin B complex 1 tab PO DAILY 03/01/25 03/12/25 02/28/25 History Physical Exam Vital Signs and Narrative: Vital Signs: Last Vital Signs Temp 98.3 F 03/12/25 15:10 Pulse 74 03/12/25 15:10 Resp 18 03/12/25 15:10 BP 147/65 H 03/12/25 15:10 Pulse Ox 100 03/12/25 15:10 O2 Del Method Room Air 03/12/25 15:10 BMI result Body Mass Index 20.7 General: AOx3, no acute distress Resp: CTA bilaterally CVS: S1, S2, RRR GI: +BS, NT, no distention : Urostomy currently draining clear straw-colored urine without hematuria. Previously with gross hematuria and clots. Both pictures listed below Skin: Warm, dry Neuro: Cranial nerves II-XII grossly intact bilaterally. Motor grossly intact bilaterally Extremities: No edema Psych: Appropriate affect Results Labs 03/12/25 12:47 03/12/25 12:47 Labs: Laboratory Results - last 24 hr 03/12/25 03/12/25 03/12/25 12:47 14:12 14:54 MCV 101.3 H MCH 32.3 MCHC 31.9 RDW 15.2 Plt Count 186 MPV 9.9 Immature Gran % (Auto) 0.8 H Neut % (Auto) 68.2 Lymph % (Auto) 15.1 L [place] % (Auto) 8.1 Eos % (Auto) 7.1 H Baso % (Auto) 0.7 Lymph # (Auto) 0.9 L [place] # (Auto) 0.5 Eos # (Auto) 0.4 Baso # (Auto) 0.0 Abs Immat Gran (auto) 0.05 H Absolute Neuts (auto) 4.1 Absolute Nucleated RBC 0.000 Nucleated RBC % (auto) 0.0 PT 13.0 H INR 1.1 APTT 37.0 H Anion Gap 13 Estim Creat Clear Calc 49.2 Estimated GFR > 60 Random Glucose 168 H Calcium 8.5 Magnesium 1.8 Total Bilirubin 0.6 AST 58 H ALT 35 Alkaline Phosphatase 332 H Total Protein 6.5 Albumin 3.0 L Urine Color RED Urine Appearance Turbid Urine pH 8.0 Ur Specific [place] 1.020 Urine Protein 300 (3+) H Urine Glucose (UA) Negative Urine Ketones Negative Urine Blood Large (3+) H Urine Nitrite Negative Ur Leukocyte Esterase Trace H Urine RBC >20 H Urine WBC 0-5 Ur Squamous Epith Cells 0-2 Urine Bacteria Trace Hyaline Casts 0-2 Blood Type A Positive Antibody Screen NEGATIVE Assessment and Plan (1) Hematuria: Status: Acute Plan Pt is a 74-year-old male with a PMH significant for?asthma, [id number] type 2 diabetes, HLD, HTN, and hx of bladder cancer s/p cystectomy and ileal loop urostomy who presents to the ED with?gross hematuria in ostomy bag. Pt is admitted to the hospital for treatment and further evaluation of hematuria concerning for recurrent urostomy bleed. Hematuria/stoma site bleeding Pt with gross hematuria in urostomy bag since this morning; currently clear urine in urostomy bag Previous bleeding from inside stoma, sutured by Urology in the OR on 03/06 H&H currently stable and at baseline Neurology consult with possible surgical procedure in the OR in the morning NPO past midnight Follow CBC Chronic mildly elevated LFTs Previous CT of abdomen and pelvis showed possible liver cirrhosis Pt denies alcohol use; hepatitis panel negative Asymptomatic, no abdominal pain Outpatient follow up [id number]-[id number] type 2 diabetes Hold metformin Continue Januvia, SSI, diabetic diet Mild intermittent asthma Not in acute exacerbation Continue home inhalers, montelukast HTN Continue home antihypertensives Full Code Attending:?Dr. Lima DVT Prophylaxis: Pneumatic compression due to anemia and thrombocytopenia Pt will be admitted to the hospital under observation for treatment and further evaluation of hematuria concerning for recurrent urostomy bleed. pt will receive close monitoring of H&H as well as urology consultation with possible surgical procedure tomorrow in the OR. Quality Stroke Does the patient have a stroke diagnosis?: No VTE Prior VTE?: No VTE Risk Level:: Medical - moderate - high VTE Device Contraindication: Treatment Not Indicated VTE Drug Contraindication: N/A - Med Ordered
--- NOTE | 2025-03-12 17:33 | PC.NURSE ---
Back documentation This Nurse changed Urostomy bag. Pt tolerated it well. Urine appears to be clear since change.
[2025-03-12 18:22] VITALS: BMI 25.6
[2025-03-12 18:31] LABS: Glucose, Whole Blood 155 mg/dL (60-115)
[2025-03-12 19:36] VITALS: BP 150/65; PULSE 63; RESP 16; O2SAT 99
[2025-03-12 20:15] LABS: Glucose, Whole Blood 150 mg/dL (60-115)
[2025-03-12] MEDS: 0.9 % Sodium Chloride Flush 3 ML SYRINGE IVFLUSH (21:44)
[2025-03-13 04:00] VITALS: BP 142/66; PULSE 74; RESP 16; TEMP 36.8
[2025-03-13 07:14] LABS: Glucose, Whole Blood 96 mg/dL (60-115)
[2025-03-13 07:31] VITALS: BP 140/65; PULSE 69; RESP 15; TEMP 36.4; O2SAT 100
--- NOTE | 2025-03-13 08:34 | P.CNUR_ITS ---
History of Present Illness Consult details Consult date: 03/13/25 Narrative: 71 years old male with PMH of asthma, HTN, bladder cancer post radical cystectomy with ileostomy who presents to the hospital feeling weakness, chills and fever. Th.e patient has had recurrent infections followed by [facility] urology, recently admitted with malaise and treated for electrolyte abnormalities, during which time he had hematuria found to be due to bleeding from the stoma. He presented to the hospital with recurrent hematuria. Examination this morning, urine is clear. Review of Systems 2 Review of Systems: Yes all other systems are reviewed and are negative Constitutional: Constitutional: Reports no additional constitutional complaints Eyes: Eyes: Reports no additional eye complaints ENT: Reports system reviewed and no additional complaints, except as documented Cardiovascular: Cardiovascular: Reports no additional cardiovascular complaints Respiratory: Respiratory: Reports no additional respiratory complaints Gastrointestinal: Gastrointestinal: Reports no additional gastrointestinal complaints Genitourinary: Genitourinary: Reports as per HPI Musculoskeletal: Musculoskeletal: Reports no additional musculoskeletal complaints Integumentary/Breasts: Skin/Breast: Reports system reviewed and no additional complaints, except as docu Neurologic: Reports system reviewed and no additional complaints, except as documented Psychiatric: Psychiatric: Reports no additional psychiatric complaints Endocrine: Endocrine: Reports no additional endocrine complaints Hematologic/Lymphatic: Hematologic/Lymphatic: Reports no additional hematologic/lymphatic complaints Allergic/Immunologic: Allergic/Immunologic: Reports no additional allergic/immunologic complaints PMFSH Past Medical History Medical History HTN (hypertension) Acute hyponatremia Hydronephrosis Bladder cancer Asthma Diabetes Bladder cancer Incomplete emptying of bladder due to benign prostatic hyperplasia Complicated urinary tract infection Surgical History Surgical History History of surgery History of ileal conduit Social History Social History Household Members: Spouse and Family Housing: House Are you a primary life care planner to a significant other at home: No Do you presently have visiting nurse or other home services: Yes (kassy) Alcohol intake: never Comment: bedside Patient Tobacco Use Status: Never used Tobacco Smoked in Last 30 Days: No Use of substances other than those prescribed or required for medical reasons: No Have you been hit, kicked, punched, or otherwise hurt by someone within the past year? If so, by whom?: No Do you feel safe in your current relationship?: Yes Is there a partner from a previous relationship who is making you feel unsafe now?: No Are you made to feel afraid or neglected: No Advance Directives: Yes Advance Directives Information Provided: Yes Advance Directives on File: No Advance Directives Date on File: 03/12/25 Do you have a plan to hurt others: No Plan Recently lost weight without trying: No Nutrition Risks: No Nutritional Risk Poor oral hygiene: No service: No Current occupational status: retired Meds Allergies Allergy/AdvReac Type Severity Reaction Status Date / Time aspirin Allergy Unknown Verified 03/12/25 12:22 Beta-Blockers AdvReac Unknown Verified 03/12/25 12:22 (Beta-Adrenergic Bloc ibuprofen AdvReac Unknown Verified 03/12/25 12:22 Active Medications: Current Medications Acetaminophen (Acetaminophen 325 Mg Tablet) 650 mg PO Q6H PRN PRN Reason: Pain, Mild 1-3,fever,headache Albuterol Sulfate (Albuterol Sulfate 90 Mcg 8 Gm Inhaler) 2 puff INHALE QID PRN PRN Reason: Shortness of Breath Atorvastatin Calcium (Atorvastatin Calcium 20 Mg Tablet) 20 mg PO DAILY [facility] Bisacodyl (Bisacodyl 5 Mg Tablet.) 5 mg PO BEDTIME PRN PRN Reason: Constipation Cefuroxime Axetil (Cefuroxime Axetil 500 Mg Tablet) 500 mg PO Q12H [facility] Last Admin: 03/13/25 04:46 Dose: 500 mg Dextrose (Dextrose 50 % 25 Gm/50 Ml Syringe) 25 gm IVPUSH Q15M PRN; Protocol PRN Reason: per Hypoglycemia Standing Ord. Docusate Sodium (Docusate Sodium 100 Mg Capsule) 100 mg PO DAILY PRN PRN Reason: Constipation Ferrous Sulfate (Ferrous Sulfate 324 Mg Tablet.) 324 mg PO DAILY [facility] Fluticasone/Vilanterol (Fluticasone/Vilanterol 200/25 Blst.W.Dev) 1 puff INHALE RDAILY [facility] Last Admin: 03/13/25 07:52 Dose: Not Given Folic Acid (Folic Acid 1 Mg Tablet) 1 mg PO DAILY [facility] Glucose (Glucose Gel 15 Gm Gel..Gram.) 15 gm PO Q15M PRN; Protocol PRN Reason: per Hypoglycemia Standing Ord. Insulin Human Lispro (Insulin Lispro 100 Unit/Ml 3 Ml Vial) 0 unit SUBCUT QIDACHS [facility]; Protocol Last Admin: 03/13/25 07:16 Dose: Not Given Magnesium Hydroxide (Milk Of Magnesia 30 Ml Oral.Susp) 30 ml PO DAILY PRN PRN Reason: Constipation Melatonin (Melatonin 3 Mg Tablet) 6 mg PO BEDTIME PRN PRN Reason: Insomnia Montelukast Sodium (Montelukast Sodium 10 Mg Tablet) 10 mg PO DAILY [facility] Multivitamins/Vitamin C (Multivitamin Tablet) 1 tab PO DAILY [facility] Oxycodone HCl (Oxycodone Hcl Immed Release 5 Mg Tablet) 5 mg PO Q6H PRN PRN Reason: Pain, Severe (Pain Scale 7-10) Sitagliptin Phosphate (Sitagliptin Phosphate 50 Mg Tablet) 50 mg PO DAILY [facility] Sodium Chloride (0.9 % Sodium Chloride Flush 3 Ml Syringe) 3 ml IVFLUSH QSHIFT [facility] Last Admin: 03/12/25 21:44 Dose: 3 ml Valsartan (Valsartan 40 Mg Tablet) 40 mg PO DAILY [facility] Home Medications ?Medication ?Instructions ?Recorded ?Confirmed ?Last Taken ?Type blood sugar diagnostic (FreeStyle #10 ea 04/18/2112/09 Unknown History Lite Strips) montelukast 10 mg tablet 10 mg PO DAILY 04/18/2111/0102/28/25 History lancets 28 gauge (FreeStyle #100 ea 06/24/21 01/05/24 Unknown History Lancets) folic acid 1 mg tablet 1 mg PO DAILY 12/10/2103/1202/28/25 History albuterol sulfate 90 mcg/actuation 2 puff PO QID PRN S hortness Of 02/08/22 03/12/25 Unknown History aerosol inhaler Breath atorvastatin 20 mg tablet 20 mg PO DAILY 03/01/2511/0102/28/25 History ferrous sulfate 325 mg (65 mg 325 mg PO DAILY 03/01/25 03/12/25 02/28/25 History iron) tablet (iron) metformin 500 mg tablet 500 mg PO BID 03/01/2503/1202/28/25 History sitagliptin phosphate 50 mg tablet 50 mg PO DAILY 02/0803/12/25 02/28/25 History (Januvia) telmisartan 20 mg tablet 20 mg PO DAILY 03/01/2511/0102/28/25 History vitamin B complex 1 tab PO DAILY 03/01/25 080 11/0102/28/25 History Physical Exam 2 Vital Signs: Vital Signs: Last Vital Signs Temp 97.6 F 03/13/25 07:31 Pulse 69 03/13/25 07:31 Resp 15 03/13/25 07:31 BP 140/65 H 03/13/25 07:31 Pulse Ox 100 03/13/25 07:31 O2 Del Method Room Air 03/13/25 07:31 BMI result Body Mass Index 25.6 Const: General: no acute distress Orientation/consciousness: patient oriented x3 HEENT: Head: Yes normocephalic and Yes atraumatic Eyes: Conjunctivae: conjunctivae normal Neck: Neck: Yes normal visual inspection Chest: Chest palpation & inspection: normal inspection of the chest Resp: Effort & Inspection: normal respiratory effort GI: Inspection: Yes normal to inspection Palpation (GI): Soft to palpation : Other: Currently stoma there is no bleeding at this time, urine is rashard Neuro: General: patient oriented x3 Psych: Appearance: grossly normal Affect: normal affect Results Labs 03/12/25 12:47 03/12/25 12:47 Labs: Abnormal lab results 03/12/25 03/12/25 03/12/25 Range/Units 12:47 14:12 18:26 RBC 2.32 L (4.60-5.80) X10*6/uL Hgb 7.5 L (14.0-18.0) g/dl Hct 23.5 L (42.0-52.0) % MCV 101.3 H (80.0-98.0) fL Immature Gran % (Auto) 0.8 H (0.0-0.4) % Lymph % (Auto) 15.1 L (20-40) % Eos % (Auto) 7.1 H (0-4) % Lymph # (Auto) 0.9 L (1.2-4.9) X10*3/uL Abs Immat Gran (auto) 0.05 H (0.00-0.03) X10*3/uL PT 13.0 H (10.9-12.4) SEC APTT 37.0 H (26.7-34.1) SEC POC Glucose 155 H (60-115) mg/dL Random Glucose 168 H (60-115) mg/dL AST 58 H (5-37) U/L Alkaline Phosphatase 332 H (39-117) U/L Albumin 3.0 L (3.5-5.0) g/dL Urine Protein 300 (3+) H (Neg-Trace) mg/dL Urine Blood Large (3+) H (Negative) Ur Leukocyte Esterase Trace H (Negative) Urine RBC >20 H (0-2) /HPF 03/12/25 Range/Units 20:08 RBC (4.60-5.80) X10*6/uL Hgb (14.0-18.0) g/dl Hct (42.0-52.0) % MCV (80.0-98.0) fL Immature Gran % (Auto) (0.0-0.4) % Lymph % (Auto) (20-40) % Eos % (Auto) (0-4) % Lymph # (Auto) (1.2-4.9) X10*3/uL Abs Immat Gran (auto) (0.00-0.03) X10*3/uL PT (10.9-12.4) SEC APTT (26.7-34.1) SEC POC Glucose 150 H (60-115) mg/dL Random Glucose (60-115) mg/dL AST (5-37) U/L Alkaline Phosphatase (39-117) U/L Albumin (3.5-5.0) g/dL Urine Protein (Neg-Trace) mg/dL Urine Blood (Negative) Ur Leukocyte Esterase (Negative) Urine RBC (0-2) /HPF Short CBC 03/12/25 Range/Units 12:47 WBC 6.0 (4.8-10.8) X10*3/uL Hgb 7.5 L (14.0-18.0) g/dl Hct 23.5 L (42.0-52.0) % Plt Count 186 (160-400) X10*3/uL BMP 03/12/25 12:47 Sodium 140 Potassium 4.7 Chloride 107 Carbon Dioxide 25 BUN 12 Creatinine 1.05 Calcium 8.5 Liver Function 03/12/25 Range/Units 12:47 Total Bilirubin 0.6 (0.0-1.0) mg/dL AST 58 H (5-37) U/L ALT 35 (0-40) U/L Alkaline Phosphatase 332 H (39-117) U/L Albumin 3.0 L (3.5-5.0) g/dL Urine 03/12/25 Range/Units 14:12 Urine Color RED Urine Appearance Turbid Urine pH 8.0 (5.0-9.0) Ur Specific [place] 1.020 (1.005-1.025) Urine Protein 300 (3+) H (Neg-Trace) mg/dL Urine Glucose (UA) Negative (Negative) mg/dL All other labs normal. Assessment and Plan (1) Hematuria: Status: Acute (2) History of bladder cancer: Status: Acute Plan The patient was taken to the OR by Urology found to have stoma with bleeding. Would like General surgery to evaluate patient, if he presents again with same problem may need stoma revision. Procedures Date of Service Date of Service: 03/13/25
[2025-03-13] MEDS: 0.9 % Sodium Chloride Flush 3 ML SYRINGE IVFLUSH ×3 (08:42→20:36)
[2025-03-13] MEDS: Ferrous Sulfate 324 MG TABLET.DR PO (08:43)
[2025-03-13 11:02] LABS: Glucose, Whole Blood 100 mg/dL (60-115)
--- NOTE | 2025-03-13 11:59 | MHC.CM.PN ---
PT LIVES WITH AND OTHER FAMILY THEY HAD NO SERVICES AND HAVE A RIDE HOME DC PLAN HOME NO SERVICES
--- NOTE | 2025-03-13 12:54 | PM.CNGS ---
History of Present Illness Consult details Consult date: 03/13/25 Requesting physician: Yang Pierre Narrative: 74 year old male with PMH of invasive bladder cancer s/p cysto-prostatectomy and ileal conduit in May 2020. He was admitted to the hospital for sepsis secondary to UTI and had persistent gross hematuria from the ostomy site. He therefore underwent ileoscopy and cystoscopy on 03/06. He was found to have oozing from the inferior edge of the stoma requiring [id number] sutures, normal ileal conduit. He had no further bleeding and was discharged to home. He reports he began to have clots via his stoma again yesterday and presented to the ED for evaluation. He was admitted to the hospitalist service for further treatment. H/H slightly drifted down from baseline but no significant drop. Review of Systems Review of Systems: Yes all other systems are reviewed and are negative [facility] Past Medical History Medical History HTN (hypertension) Acute hyponatremia Hydronephrosis Bladder cancer Asthma Diabetes Bladder cancer Incomplete emptying of bladder due to benign prostatic hyperplasia Complicated urinary tract infection Surgical History Surgical History History of surgery History of ileal conduit Social History Social History Household Members: Spouse and Family Housing: House Are you a primary ocular care technologist to a significant other at home: No Do you presently have visiting nurse or other home services: Yes (kassy) Alcohol intake: never Comment: bedside Patient Tobacco Use Status: Never used Tobacco Smoked in Last 30 Days: No Use of substances other than those prescribed or required for medical reasons: No Currently Displaying Signs/Symptoms of Drug Intoxication Withdrawal: No Have you been hit, kicked, punched, or otherwise hurt by someone within the past year? If so, by whom?: No Do you feel safe in your current relationship?: Yes Is there a partner from a previous relationship who is making you feel unsafe now?: No Are you made to feel afraid or neglected: No Advance Directives: Yes Advance Directives Information Provided: Yes Advance Directives on File: No Advance Directives Date on File: 08/03/25 Do you have a plan to hurt others: No Plan Recently lost weight without trying: No Nutrition Risks: No Nutritional Risk Poor oral hygiene: No service: No Current occupational status: retired Meds Allergies Allergy/AdvReac Type Severity Reaction Status Date / Time aspirin Allergy Unknown Verified 03/12/25 12:22 Beta-Blockers AdvReac Unknown Verified 03/12/25 12:22 (Beta-Adrenergic Bloc ibuprofen AdvReac Unknown Verified 03/12/25 12:22 Active Medications: Current Medications Acetaminophen (Acetaminophen 325 Mg Tablet) 650 mg PO Q6H PRN PRN Reason: Pain, Mild 1-3,fever,headache Albuterol Sulfate (Albuterol Sulfate 90 Mcg 8 Gm Inhaler) 2 puff INHALE QID PRN PRN Reason: Shortness of Breath Atorvastatin Calcium (Atorvastatin Calcium 20 Mg Tablet) 20 mg PO DAILY [facility] Last Admin: 03/13/25 08:43 Dose: 20 mg Bisacodyl (Bisacodyl 5 Mg Tablet.) 5 mg PO BEDTIME PRN PRN Reason: Constipation Cefuroxime Axetil (Cefuroxime Axetil 500 Mg Tablet) 500 mg PO Q12H [facility] Last Admin: 03/13/25 04:46 Dose: 500 mg Dextrose (Dextrose 50 % 25 Gm/50 Ml Syringe) 25 gm IVPUSH Q15M PRN; Protocol PRN Reason: per Hypoglycemia Standing Ord. Docusate Sodium (Docusate Sodium 100 Mg Capsule) 100 mg PO DAILY PRN PRN Reason: Constipation Ferrous Sulfate (Ferrous Sulfate 324 Mg Tablet.) 324 mg PO DAILY [facility] Last Admin: 03/13/25 08:43 Dose: 324 mg Fluticasone/Vilanterol (Fluticasone/Vilanterol 200/25 Blst.W.Dev) 1 puff INHALE RDAILY [facility] Last Admin: 03/13/25 07:52 Dose: Not Given Folic Acid (Folic Acid 1 Mg Tablet) 1 mg PO DAILY [facility] Last Admin: 03/13/25 08:44 Dose: 1 mg Glucose (Glucose Gel 15 Gm Gel..Gram.) 15 gm PO Q15M PRN; Protocol PRN Reason: per Hypoglycemia Standing Ord. Insulin Human Lispro (Insulin Lispro 100 Unit/Ml 3 Ml Vial) 0 unit SUBCUT QIDACHS [facility]; Protocol Last Admin: 03/13/25 12:18 Dose: Not Given Magnesium Hydroxide (Milk Of Magnesia 30 Ml Oral.Susp) 30 ml PO DAILY PRN PRN Reason: Constipation Melatonin (Melatonin 3 Mg Tablet) 6 mg PO BEDTIME PRN PRN Reason: Insomnia Montelukast Sodium (Montelukast Sodium 10 Mg Tablet) 10 mg PO DAILY [facility] Last Admin: 03/13/25 08:44 Dose: 10 mg Multivitamins/Vitamin C (Multivitamin Tablet) 1 tab PO DAILY [facility] Last Admin: 03/13/25 08:44 Dose: 1 tab Oxycodone HCl (Oxycodone Hcl Immed Release 5 Mg Tablet) 5 mg PO Q6H PRN PRN Reason: Pain, Severe (Pain Scale 7-10) Sitagliptin Phosphate (Sitagliptin Phosphate 50 Mg Tablet) 50 mg PO DAILY [facility] Last Admin: 03/13/25 12:18 Dose: Not Given Sodium Chloride (0.9 % Sodium Chloride Flush 3 Ml Syringe) 3 ml IVFLUSH QSHIFT [facility] Last Admin: 03/13/25 08:42 Dose: 3 ml Valsartan (Valsartan 40 Mg Tablet) 40 mg PO DAILY [facility] Last Admin: 03/13/25 08:44 Dose: 40 mg Home Medications ?Medication ?Instructions ?Recorded ?Confirmed ?Last Taken ?Type blood sugar diagnostic (FreeStyle #10 ea 04/18/21 01/05/24 Unknown History Lite Strips) montelukast 10 mg tablet 10 mg PO DAILY 04/18/21 03/12/25 02/28/25 History lancets 28 gauge (FreeStyle #100 ea 06/24/21 01/05/24 Unknown History Lancets) folic acid 1 mg tablet 1 mg PO DAILY 12/10/21 03/12/25 02/28/25 History albuterol sulfate 90 mcg/actuation 2 puff PO QID PRN Shortness Of 02/08/22 03/12/25 Unknown History aerosol inhaler Breath atorvastatin 20 mg tablet 20 mg PO DAILY 03/01/25 03/12/25 02/28/25 History ferrous sulfate 325 mg (65 mg 325 mg PO DAILY 03/01/25 03/12/25 02/28/25 History iron) tablet (iron) metformin 500 mg tablet 500 mg PO BID 03/01/25 03/12/25 02/28/25 History sitagliptin phosphate 50 mg tablet 50 mg PO DAILY 03/01/25 03/12/25 02/28/25 History (Januvia) telmisartan 20 mg tablet 20 mg PO DAILY 03/01/25 03/12/25 02/28/25 History vitamin B complex 1 tab PO DAILY 03/01/25 03/12/25 02/28/25 History Physical Exam Vital Signs: Vital Signs: Last Vital Signs Temp 97.6 F 03/13/25 07:31 Pulse 69 03/13/25 07:31 Resp 15 03/13/25 07:31 BP 140/65 H 03/13/25 07:31 Pulse Ox 100 03/13/25 07:31 O2 Del Method Room Air 03/13/25 07:31 BMI result Body Mass Index 25.6 Const: General: comfortable, no acute distress and alert Nutritional Appearance: thin Orientation/consciousness: patient oriented x3 Resp: Effort & Inspection: normal respiratory effort GI: Other: ileal conduit stoma pink, very small amount of oozing from inferior aspect, draining urine is straw colored, no clots in appliance abd soft, nontender Skin: General skin exam: no rashes or lesions noted Neuro: General: patient oriented x3 Results Labs 03/12/25 12:47 03/12/25 12:47 Labs: Abnormal lab results 03/12/25 03/12/25 03/12/25 Range/Units 12:47 14:12 18:26 RBC 2.32 L (4.60-5.80) X10*6/uL Hgb 7.5 L (14.0-18.0) g/dl Hct 23.5 L (42.0-52.0) % MCV 101.3 H (80.0-98.0) fL Immature Gran % (Auto) 0.8 H (0.0-0.4) % Lymph % (Auto) 15.1 L (20-40) % Eos % (Auto) 7.1 H (0-4) % Lymph # (Auto) 0.9 L (1.2-4.9) X10*3/uL Abs Immat Gran (auto) 0.05 H (0.00-0.03) X10*3/uL PT 13.0 H (10.9-12.4) SEC APTT 37.0 H (26.7-34.1) SEC POC Glucose 155 H (60-115) mg/dL Random Glucose 168 H (60-115) mg/dL AST 58 H (5-37) U/L Alkaline Phosphatase 332 H (39-117) U/L Albumin 3.0 L (3.5-5.0) g/dL Urine Protein 300 (3+) H (Neg-Trace) mg/dL Urine Blood Large (3+) H (Negative) Ur Leukocyte Esterase Trace H (Negative) Urine RBC >20 H (0-2) /HPF 03/12/25 Range/Units 20:08 RBC (4.60-5.80) X10*6/uL Hgb (14.0-18.0) g/dl Hct (42.0-52.0) % MCV (80.0-98.0) fL Immature Gran % (Auto) (0.0-0.4) % Lymph % (Auto) (20-40) % Eos % (Auto) (0-4) % Lymph # (Auto) (1.2-4.9) X10*3/uL Abs Immat Gran (auto) (0.00-0.03) X10*3/uL PT (10.9-12.4) SEC APTT (26.7-34.1) SEC POC Glucose 150 H (60-115) mg/dL Random Glucose (60-115) mg/dL AST (5-37) U/L Alkaline Phosphatase (39-117) U/L Albumin (3.5-5.0) g/dL Urine Protein (Neg-Trace) mg/dL Urine Blood (Negative) Ur Leukocyte Esterase (Negative) Urine RBC (0-2) /HPF Short CBC 03/12/25 Range/Units 12:47 WBC 6.0 (4.8-10.8) X10*3/uL Hgb 7.5 L (14.0-18.0) g/dl Hct 23.5 L (42.0-52.0) % Plt Count 186 (160-400) X10*3/uL BMP 03/12/25 12:47 Sodium 140 Potassium 4.7 Chloride 107 Carbon Dioxide 25 BUN 12 Creatinine 1.05 Calcium 8.5 Liver Function 03/12/25 Range/Units 12:47 Total Bilirubin 0.6 (0.0-1.0) mg/dL AST 58 H (5-37) U/L ALT 35 (0-40) U/L Alkaline Phosphatase 332 H (39-117) U/L Albumin 3.0 L (3.5-5.0) g/dL Urine 03/12/25 Range/Units 14:12 Urine Color RED Urine Appearance Turbid Urine pH 8.0 (5.0-9.0) Ur Specific [place] 1.020 (1.005-1.025) Urine Protein 300 (3+) H (Neg-Trace) mg/dL Urine Glucose (UA) Negative (Negative) mg/dL All other labs normal. Assessment and Plan (1) Complication of urostomy: Status: Acute Plan 74 year old male with PMH of invasive bladder CA s/p cysto-prostatectomy and ileal conduit in May 2020 who presents with recurrent bleeding from his ileal conduit. Urology evaluated the patient and currently wants to hold off on surgical intervention as the bleeding has significantly tapered off. H/H remains stable. Will continue to follow. Procedures Date of Service Date of Service: 03/13/25
--- NOTE | 2025-03-13 13:03 | P.CONGS_ITS ---
History of Present Illness Consult details Consult date: 03/13/25 Narrative: 74-year-old male with history of diabetes, hypertension, and has an ileal reservoir after cystectomy for bladder cancer in 2017 admitted on March 10, 2025 for urosepsis. He also was noted to have some recurrent history of bright blood and clots from his stoma. He was previously taken to the OR by Dr. Narayan last week to define the source of bleeding. Cystoscopy via the ileal conduit did not reveal any lesions in the ileal conduit but there was note of oozing from the edge of the stoma and [id number] sutures were placed However, he was noted to have recurrent bleeding yesterday. Currently there is no bleeding noted. Urine is clear. General surgery was consulted for this bleeding via the urostomy. The patient says he feels well overall. Review of Systems 2 Constitutional: Constitutional: Denies chills and Denies fever(s) Cardiovascular: Cardiovascular: Denies chest pain, Denies dyspnea and Denies dyspnea on exertion Respiratory: Respiratory: Denies cough, Denies dyspnea and Denies dyspnea on exertion Gastrointestinal: Gastrointestinal: Denies hematochezia and Denies change in bowel habits Genitourinary: Comments: Has ileal conduit, bleeding reported yesterday Musculoskeletal: Musculoskeletal: Denies back pain and Denies limited range of motion Neurologic: Denies focal weakness and Denies convulsions Psychiatric: Psychiatric: Denies depression and Denies mood swings PMF Past Medical History Medical History (Updated 03/15/25 @ 00:02 by Background Daemon) Cirrhosis of liver Complication of urostomy HTN (hypertension) Acute hyponatremia Hydronephrosis Bladder cancer Asthma Diabetes Bladder cancer Incomplete emptying of bladder due to benign prostatic hyperplasia Complicated urinary tract infection Surgical History Surgical History History of surgery History of ileal conduit Social History Social History Household Members: Spouse and Family Housing: House Are you a primary customer care manager to a significant other at home: No Do you presently have visiting nurse or other home services: Yes (kassy) Alcohol intake: never Comment: bedside Patient Tobacco Use Status: Never used Tobacco Smoked in Last 30 Days: No Use of substances other than those prescribed or required for medical reasons: No Currently Displaying Signs/Symptoms of Drug Intoxication Withdrawal: No Have you been hit, kicked, punched, or otherwise hurt by someone within the past year? If so, by whom?: No Do you feel safe in your current relationship?: Yes Is there a partner from a previous relationship who is making you feel unsafe now?: No Are you made to feel afraid or neglected: No Advance Directives: Yes Advance Directives Information Provided: Yes Advance Directives on File: No Advance Directives Date on File: 03/12/25 Do you have a plan to hurt others: No Plan Recently lost weight without trying: No Nutrition Risks: No Nutritional Risk Poor oral hygiene: No service: No Current occupational status: retired Meds Allergies Allergy/AdvReac Type Severity Reaction Status Date / Time aspirin Allergy Unknown Verified 03/12/25 12:22 Beta-Blockers AdvReac Unknown Verified 03/12/25 12:22 (Beta-Adrenergic Bloc ibuprofen AdvReac Unknown Verified 03/12/25 12:22 Active Medications: Current Medications Acetaminophen (Acetaminophen 325 Mg Tablet) 650 mg PO Q6H PRN PRN Reason: Pain, Mild 1-3,fever,headache Albuterol Sulfate (Albuterol Sulfate 90 Mcg 8 Gm Inhaler) 2 puff INHALE QID PRN PRN Reason: Shortness of Breath Atorvastatin Calcium (Atorvastatin Calcium 20 Mg Tablet) 20 mg PO DAILY [facility] Last Admin: 03/13/25 08:43 Dose: 20 mg Bisacodyl (Bisacodyl 5 Mg Tablet.) 5 mg PO BEDTIME PRN PRN Reason: Constipation Cefuroxime Axetil (Cefuroxime Axetil 500 Mg Tablet) 500 mg PO Q12H [facility] Last Admin: 03/13/25 04:46 Dose: 500 mg Dextrose (Dextrose 50 % 25 Gm/50 Ml Syringe) 25 gm IVPUSH Q15M PRN; Protocol PRN Reason: per Hypoglycemia Standing Ord. Docusate Sodium (Docusate Sodium 100 Mg Capsule) 100 mg PO DAILY PRN PRN Reason: Constipation Ferrous Sulfate (Ferrous Sulfate 324 Mg Tablet.) 324 mg PO DAILY [facility] Last Admin: 03/13/25 08:43 Dose: 324 mg Fluticasone/Vilanterol (Fluticasone/Vilanterol 200/25 Blst.W.Dev) 1 puff INHALE RDAILY [facility] Last Admin: 03/13/25 07:52 Dose: Not Given Folic Acid (Folic Acid 1 Mg Tablet) 1 mg PO DAILY [facility] Last Admin: 03/13/25 08:44 Dose: 1 mg Glucose (Glucose Gel 15 Gm Gel..Gram.) 15 gm PO Q15M PRN; Protocol PRN Reason: per Hypoglycemia Standing Ord. Insulin Human Lispro (Insulin Lispro 100 Unit/Ml 3 Ml Vial) 0 unit SUBCUT QIDACHS [facility]; Protocol Last Admin: 03/13/25 12:18 Dose: Not Given Magnesium Hydroxide (Milk Of Magnesia 30 Ml Oral.Susp) 30 ml PO DAILY PRN PRN Reason: Constipation Melatonin (Melatonin 3 Mg Tablet) 6 mg PO BEDTIME PRN PRN Reason: Insomnia Montelukast Sodium (Montelukast Sodium 10 Mg Tablet) 10 mg PO DAILY [facility] Last Admin: 03/13/25 08:44 Dose: 10 mg Multivitamins/Vitamin C (Multivitamin Tablet) 1 tab PO DAILY [facility] Last Admin: 03/13/25 08:44 Dose: 1 tab Oxycodone HCl (Oxycodone Hcl Immed Release 5 Mg Tablet) 5 mg PO Q6H PRN PRN Reason: Pain, Severe (Pain Scale 7-10) Sitagliptin Phosphate (Sitagliptin Phosphate 50 Mg Tablet) 50 mg PO DAILY [facility] Last Admin: 03/13/25 12:18 Dose: Not Given Sodium Chloride (0.9 % Sodium Chloride Flush 3 Ml Syringe) 3 ml IVFLUSH QSHIFT [facility] Last Admin: 03/13/25 08:42 Dose: 3 ml Valsartan (Valsartan 40 Mg Tablet) 40 mg PO DAILY [facility] Last Admin: 03/13/25 08:44 Dose: 40 mg Home Medications ?Medication ?Instructions ?Recorded ?Confirmed ?Last Taken ?Type blood sugar diagnostic (FreeStyle #10 ea 04/18/2112/09 Unknown History Lite Strips) montelukast 10 mg tablet 10 mg PO DAILY 04/18/2111/0102/28/25 History lancets 28 gauge (FreeStyle #100 ea 06/24/21 01/05/24 Unknown History Lancets) folic acid 1 mg tablet 1 mg PO DAILY 12/10/2103/1202/28/25 History albuterol sulfate 90 mcg/actuation 2 puff PO QID PRN S hortness Of 02/08/22 03/12/25 Unknown History aerosol inhaler Breath atorvastatin 20 mg tablet 20 mg PO DAILY 03/01/2511/0102/28/25 History ferrous sulfate 325 mg (65 mg 325 mg PO DAILY 03/01/25 03/12/25 02/28/25 History iron) tablet (iron) metformin 500 mg tablet 500 mg PO BID 03/01/2503/1202/28/25 History sitagliptin phosphate 50 mg tablet 50 mg PO DAILY 02/0803/12/25 02/28/25 History (Januvia) telmisartan 20 mg tablet 20 mg PO DAILY 03/01/2511/0102/28/25 History vitamin B complex 1 tab PO DAILY 03/01/2511/0102/28/25 History Physical Exam 2 Vital Signs: Vital Signs: Last Vital Signs Temp 97.6 F 03/13/25 07:31 Pulse 69 03/13/25 07:31 Resp 15 03/13/25 07:31 BP 140/65 H 03/13/25 07:31 Pulse Ox 100 03/13/25 07:31 O2 Del Method Room Air 03/13/25 07:31 BMI result Body Mass Index 25.6 Const: General: comfortable and no acute distress Resp: Effort & Inspection: normal respiratory effort Cardio: Rate: regular rate GI: Other: Ileal conduit seen with no bleeding noted; urine also appears very clear Palpation (GI): Soft to palpation, not firm and nontender Results Labs 03/15/25 05:19 03/12/25 12:47 Labs: Abnormal lab results 03/12/25 03/12/25 03/12/25 Range/Units 12:47 14:12 18:26 POC Glucose 155 H (60-115) mg/dL Random Glucose 168 H (60-115) mg/dL AST 58 H (5-37) U/L Alkaline Phosphatase 332 H (39-117) U/L Albumin 3.0 L (3.5-5.0) g/dL Urine Protein 300 (3+) H (Neg-Trace) mg/dL Urine Blood Large (3+) H (Negative) Ur Leukocyte Esterase Trace H (Negative) Urine RBC >20 H (0-2) /HPF 03/12/25 Range/Units 20:08 POC Glucose 150 H (60-115) mg/dL Random Glucose (60-115) mg/dL AST (5-37) U/L Alkaline Phosphatase (39-117) U/L Albumin (3.5-5.0) g/dL Urine Protein (Neg-Trace) mg/dL Urine Blood (Negative) Ur Leukocyte Esterase (Negative) Urine RBC (0-2) /HPF BMP 03/12/25 12:47 Sodium 140 Potassium 4.7 Chloride 107 Carbon Dioxide 25 BUN 12 Creatinine 1.05 Calcium 8.5 Liver Function 03/12/25 Range/Units 12:47 Total Bilirubin 0.6 (0.0-1.0) mg/dL AST 58 H (5-37) U/L ALT 35 (0-40) U/L Alkaline Phosphatase 332 H (39-117) U/L Albumin 3.0 L (3.5-5.0) g/dL Urine 03/12/25 Range/Units 14:12 Urine Color RED Urine Appearance Turbid Urine pH 8.0 (5.0-9.0) Ur Specific [place] 1.020 (1.005-1.025) Urine Protein 300 (3+) H (Neg-Trace) mg/dL Urine Glucose (UA) Negative (Negative) mg/dL All other labs normal. Assessment and Plan (1) Complication of urostomy: Status: Acute He has been noted to have passage of blood as well as clots via his ileostomy with his ileal conduit. He has a history of bladder cancer and cystectomy. Currently there is no bleeding seen. The urine is clear The bleeding is likely coming from the interface between the urostomy and the abdominal wall, and maybe from a small mesenteric vessel. This may occur with liver cirrhosis and portal hypertension, and the patient's history does state that he has liver cirrhosis. I have discussed the case with Dr. Narayan. For recurrent bleeding, he plans to bring the patient to the operating room under anesthesia and detached and explore the edges of the urostomy to look for any source of bleeding. We will be around to assist if this is necessary. Currently however, there was no bleeding noted. I have discussed the above with the patient as well. Anticoagulation should be held at this time. PT INR should be checked as well. Procedures Date of Service Date of Service: 03/15/25
--- NOTE | 2025-03-13 14:52 | P.PNIM_ITS ---
Subjective Subjective Date of Service: 03/13/25 Interval History: Scant amount of hematuria noted last night, resolve this morning No recurrent bleeding noted during morning or early afternoon Pt seen and evaluated by both General surgery and Urology who think no acute intervention necessary at this time Pt without complaints No abdominal pain Denies lightheadedness or dizziness Diet has been advanced Review of Systems Review of Systems: Yes all other systems are reviewed and are negative Physical Exam 2 Exam: Exam: General: AOx3, no acute distress Resp: CTA bilaterally CVS: S1, S2, RRR GI: +BS, NT, no distention : Urostomy with clear straw yellow urine in bag. No hematuria noted Skin: Warm, dry Neuro: Cranial nerves II-XII grossly intact bilaterally. Motor grossly intact bilaterally Extremities: No edema Psych: Appropriate affect Vital Signs: Vital Signs: Last Vital Signs Temp 97.6 F 03/13/25 07:31 Pulse 69 03/13/25 07:31 Resp 15 03/13/25 07:31 BP 140/65 H 03/13/25 07:31 Pulse Ox 100 03/13/25 07:31 O2 Del Method Room Air 03/13/25 07:31 BMI result Body Mass Index 25.6 Objective Data Active Medications Acetaminophen (Acetaminophen 325 Mg Tablet) 650 mg PO Q6H PRN PRN Reason: Pain, Mild 1-3,fever,headache Albuterol Sulfate (Albuterol Sulfate 90 Mcg 8 Gm Inhaler) 2 puff INHALE QID PRN PRN Reason: Shortness of Breath Atorvastatin Calcium (Atorvastatin Calcium 20 Mg Tablet) 20 mg PO DAILY [facility] Last Admin: 03/13/25 08:43 Dose: 20 mg Documented By: MACY Bisacodyl (Bisacodyl 5 Mg Tablet.) 5 mg PO BEDTIME PRN PRN Reason: Constipation Cefuroxime Axetil (Cefuroxime Axetil 500 Mg Tablet) 500 mg PO Q12H [facility] Last Admin: 03/13/25 04:46 Dose: 500 mg Documented By: BENOIT Dextrose (Dextrose 50 % 25 Gm/50 Ml Syringe) 25 gm IVPUSH Q15M PRN; Protocol PRN Reason: per Hypoglycemia Standing Ord. Docusate Sodium (Docusate Sodium 100 Mg Capsule) 100 mg PO DAILY PRN PRN Reason: Constipation Ferrous Sulfate (Ferrous Sulfate 324 Mg Tablet.) 324 mg PO DAILY [facility] Last Admin: 03/13/25 08:43 Dose: 324 mg Documented By: MACY Fluticasone/Vilanterol (Fluticasone/Vilanterol 200/ Blst.W.Dev) 1 puff INHALE RDAILY [facility] Last Admin: 03/13/25 07:52 Dose: Not Given Documented By: AMY Non-Admin Reason: pharmacy called for med Folic Acid (Folic Acid 1 Mg Tablet) 1 mg PO DAILY [facility] Last Admin: 03/13/25 08:44 Dose: 1 mg Documented By: MACY Glucose (Glucose Gel 15 Gm Gel..Gram.) 15 gm PO Q15M PRN; Protocol PRN Reason: per Hypoglycemia Standing Ord. Insulin Human Lispro (Insulin Lispro 100 Unit/Ml 3 Ml Vial) 0 unit SUBCUT QIDACHS [facility]; Protocol Last Admin: 03/13/25 12:18 Dose: Not Given Documented By: MACY Non-Admin Reason: No Insulin Coverage Magnesium Hydroxide (Milk Of Magnesia 30 Ml Oral.Susp) 30 ml PO DAILY PRN PRN Reason: Constipation Melatonin (Melatonin 3 Mg Tablet) 6 mg PO BEDTIME PRN PRN Reason: Insomnia Montelukast Sodium (Montelukast Sodium 10 Mg Tablet) 10 mg PO DAILY [facility] Last Admin: 03/13/25 08:44 Dose: 10 mg Documented By: MACY Multivitamins/Vitamin C (Multivitamin Tablet) 1 tab PO DAILY [facility] Last Admin: 03/13/25 08:44 Dose: 1 tab Documented By: MACY Oxycodone HCl (Oxycodone Hcl Immed Release 5 Mg Tablet) 5 mg PO Q6H PRN PRN Reason: Pain, Severe (Pain Scale 7-10) Sitagliptin Phosphate (Sitagliptin Phosphate 50 Mg Tablet) 50 mg PO DAILY [facility] Last Admin: 03/13/25 12:18 Dose: Not Given Documented By: MACY Non-Admin Reason: Med Not Available Sodium Chloride (0.9 % Sodium Chloride Flush 3 Ml Syringe) 3 ml IVFLUSH QSHIFT [facility] Last Admin: 03/13/25 08:42 Dose: 3 ml Documented By: MACY Valsartan (Valsartan 40 Mg Tablet) 40 mg PO DAILY [facility] Last Admin: 03/13/25 08:44 Dose: 40 mg Documented By: MACY Labs 03/12/25 12:47 03/12/25 12:47 Labs: Laboratory Results - last 24 hr 03/12/25 03/12/25 03/12/25 14:54 18:26 20:08 POC Glucose 155 H 150 H Blood Type A Positive Antibody Screen NEGATIVE 03/13/25 03/13/25 07:10 10:59 POC Glucose 96 100 Blood Type Antibody Screen Assessment and Plan (1) Hematuria: Status: Acute Plan Pt is a 74-year-old male with a PMH significant for?asthma, [id number]-moomzeody type 2 diabetes, HLD, HTN, and hx of bladder cancer s/p cystectomy and ileal loop urostomy who presents to the ED with?gross hematuria in ostomy bag. Pt is admitted to the hospital for treatment and further evaluation of hematuria concerning for recurrent urostomy bleed. Hematuria/stoma site bleeding Urine pink-colored overnight, no clots; no appreciable hematuria this morning or afternoon Previous bleeding from inside stoma, sutured by Urology in the OR on 03/06 H&H currently stable and at baseline Seen by nephrology and general surgery; given no current bleeding no indication for acute intervention Advance diet to full Follow CBC, monitor for hematuria Chronic mildly elevated LFTs Previous CT of abdomen and pelvis showed possible liver cirrhosis Pt denies alcohol use; hepatitis panel negative Asymptomatic, no abdominal pain Outpatient follow up Doo-abucypd-jgsalczlt type 2 diabetes Hold metformin Continue Januvia, SSI, diabetic diet Mild intermittent asthma Not in acute exacerbation Continue home inhalers, montelukast HTN Continue home antihypertensives Full Code DVT Prophylaxis: Pneumatic compression due to anemia and thrombocytopenia Pt will require additional hospitalization for close monitoring of H&H and for hematuria that will require surgical intervention in the OR. Quality Stroke Does the patient have a stroke diagnosis?: No VTE Prior VTE?: No VTE Risk Level:: Medical - moderate - high VTE Device Contraindication: Treatment Not Indicated VTE Drug Contraindication: N/A - Med Ordered
[2025-03-13 15:06] VITALS: BP 109/55; PULSE 71; RESP 14; TEMP 36.6; O2SAT 99
[2025-03-13 16:16] LABS: Glucose, Whole Blood 151 mg/dL (60-115)
[2025-03-13 17:51] LABS: Hematocrit 23.2 % (42.0-52.0); Hemoglobin 7.7 g/dl (14.0-18.0)
[2025-03-13 17:52] LABS: Hematocrit 23.2 % (42.0-52.0); Hemoglobin 7.6 g/dl (14.0-18.0); Mean Corpuscular HGB Conc 32.8 g/dl (31.0-36.0); Mean Corpuscular Hemoglobin 33.2 pg (27.0-33.0); Mean Corpuscular Volume 101.3 fL (80.0-98.0); NRBC Abs Auto 0.000 X10*3/uL (0.0-0.012); NRBC Pct Auto 0.0 /100WBC (0.0-0.2); Platelet Count 183 X10*3/uL (160-400); Red Blood Count 2.29 X10*6/uL (4.60-5.80); White Blood Count 6.3 X10*3/uL (4.8-10.8)
[2025-03-13 20:00] VITALS: BP 114/57; PULSE 70; RESP 20; TEMP 37.1; O2SAT 98
[2025-03-13 20:24] LABS: Glucose, Whole Blood 122 mg/dL (60-115)
[2025-03-14 03:23] VITALS: BP 140/64; PULSE 71; RESP 16; TEMP 36.4; O2SAT 99
[2025-03-14 06:52] LABS: Hematocrit 22.8 % (42.0-52.0); Hemoglobin 7.4 g/dl (14.0-18.0); Mean Corpuscular HGB Conc 32.5 g/dl (31.0-36.0); Mean Corpuscular Hemoglobin 32.7 pg (27.0-33.0); Mean Corpuscular Volume 100.9 fL (80.0-98.0); NRBC Abs Auto 0.000 X10*3/uL (0.0-0.012); NRBC Pct Auto 0.0 /100WBC (0.0-0.2); Platelet Count 207 X10*3/uL (160-400); Red Blood Count 2.26 X10*6/uL (4.60-5.80); White Blood Count 7.4 X10*3/uL (4.8-10.8)
[2025-03-14 07:10] LABS: Folate 14.4 ng/mL (> or = 4.0); Vitamin B12 890 pg/mL (200-900)
[2025-03-14 07:18] VITALS: BP 125/60; PULSE 72; RESP 12; TEMP 36.6; O2SAT 100
[2025-03-14] MEDS: 0.9 % Sodium Chloride Flush 3 ML SYRINGE IVFLUSH ×2 (07:19→15:11)
[2025-03-14 07:26] LABS: Glucose, Whole Blood 108 mg/dL (60-115)
[2025-03-14] MEDS: Ferrous Sulfate 324 MG TABLET.DR PO (07:54)
[2025-03-14] MEDS: Fluticasone/Vilanterol 200/25 BLST.W.DEV 1 PUFF INHALE (08:24)
[2025-03-14 08:26] VITALS: PULSE 74; RESP 16; O2SAT 99
[2025-03-14 10:59] LABS: Glucose, Whole Blood 184 mg/dL (60-115)
[2025-03-14 15:11] VITALS: BP 124/59; PULSE 65; RESP 14; TEMP 36.6; O2SAT 100
--- NOTE | 2025-03-14 15:11 | P.PNIM_ITS ---
Subjective Subjective Date of Service: 03/14/25 Interval History: Bleeding to stoma returned late this morning Complains of skin irritation and itching around stoma bag Denies N/V; no abd pain No lightheadedness or dizziness Review of Systems Review of Systems: Yes all other systems are reviewed and are negative Physical Exam 2 Exam: Exam: General: AOx3, no acute distress Resp: CTA bilaterally CVS: S1, S2, RRR GI: +BS, NT, no distention : Urostomy with amanda hematuria with clots. As pictured below Skin: Warm, dry Neuro: Cranial nerves II-XII grossly intact bilaterally. Motor grossly intact bilaterally Extremities: No edema Psych: Appropriate affect Vital Signs: Vital Signs: Last Vital Signs Temp 97.9 F 03/14/25 07:18 Pulse 74 03/14/25 08:26 Resp 16 03/14/25 08:26 BP 125/60 03/14/25 07:18 Pulse Ox 100 03/14/25 07:18 O2 Del Method Room Air 03/14/25 07:18 BMI result Body Mass Index 25.6 Objective Data Active Medications Acetaminophen (Acetaminophen 325 Mg Tablet) 650 mg PO Q6H PRN PRN Reason: Pain, Mild 1-3,fever,headache Albuterol Sulfate (Albuterol Sulfate 90 Mcg 8 Gm Inhaler) 2 puff INHALE QID PRN PRN Reason: Shortness of Breath Atorvastatin Calcium (Atorvastatin Calcium 20 Mg Tablet) 20 mg PO DAILY [facility] Last Admin: 03/14/25 07:54 Dose: 20 mg Documented By: FLASH Bisacodyl (Bisacodyl 5 Mg Tablet.) 5 mg PO BEDTIME PRN PRN Reason: Constipation Cefuroxime Axetil (Cefuroxime Axetil 500 Mg Tablet) 500 mg PO Q12H [facility] Last Admin: 03/14/25 05:20 Dose: 500 mg Documented By: AMADO Dextrose (Dextrose 50 % 25 Gm/50 Ml Syringe) 25 gm IVPUSH Q15M PRN; Protocol PRN Reason: per Hypoglycemia Standing Ord. Docusate Sodium (Docusate Sodium 100 Mg Capsule) 100 mg PO DAILY PRN PRN Reason: Constipation Ferrous Sulfate (Ferrous Sulfate 324 Mg Tablet.) 324 mg PO DAILY [facility] Last Admin: 03/14/25 07:54 Dose: 324 mg Documented By: FLASH Fluticasone/Vilanterol (Fluticasone/Vilanterol 200/25 Blst.W.Dev) 1 puff INHALE RDAILY [facility] Last Admin: 03/14/25 08:24 Dose: 1 puff Documented By: SONNY Folic Acid (Folic Acid 1 Mg Tablet) 1 mg PO DAILY [facility] Last Admin: 03/14/25 07:54 Dose: 1 mg Documented By: FLASH Glucose (Glucose Gel 15 Gm Gel..Gram.) 15 gm PO Q15M PRN; Protocol PRN Reason: per Hypoglycemia Standing Ord. Insulin Human Lispro (Insulin Lispro 100 Unit/Ml 3 Ml Vial) 0 unit SUBCUT QIDACHS [facility]; Protocol Last Admin: 03/14/25 11:47 Dose: 2 unit Documented By: FLASH Magnesium Hydroxide (Milk Of Magnesia 30 Ml Oral.Susp) 30 ml PO DAILY PRN PRN Reason: Constipation Melatonin (Melatonin 3 Mg Tablet) 6 mg PO BEDTIME PRN PRN Reason: Insomnia Montelukast Sodium (Montelukast Sodium 10 Mg Tablet) 10 mg PO DAILY [facility] Last Admin: 03/14/25 07:54 Dose: 10 mg Documented By: FLASH Multivitamins/Vitamin C (Multivitamin Tablet) 1 tab PO DAILY [facility] Last Admin: 03/14/25 07:54 Dose: 1 tab Documented By: FLASH Oxycodone HCl (Oxycodone Hcl Immed Release 5 Mg Tablet) 5 mg PO Q6H PRN PRN Reason: Pain, Severe (Pain Scale 7-10) Sitagliptin Phosphate (Sitagliptin Phosphate 50 Mg Tablet) 50 mg PO DAILY [facility] Last Admin: 03/14/25 07:54 Dose: 50 mg Documented By: FLASH Sodium Chloride (0.9 % Sodium Chloride Flush 3 Ml Syringe) 3 ml IVFLUSH QSHIFT [facility] Last Admin: 03/14/25 07:19 Dose: 3 ml Documented By: FLASH Valsartan (Valsartan 40 Mg Tablet) 40 mg PO DAILY [facility] Last Admin: 03/14/25 07:54 Dose: 40 mg Documented By: FLASH Labs 03/14/25 05:28 03/12/25 12:47 Labs: Laboratory Results - last 24 hr 03/13/25 03/13/25 03/13/25 16:13 17:30 20:20 MCV 101.3 H MCH 33.2 H MCHC 32.8 RDW 15.5 Plt Count 183 MPV 10.3 Absolute Nucleated RBC 0.000 Nucleated RBC % (auto) 0.0 POC Glucose 151 H 122 H Vitamin B12 Folate 03/14/25 03/14/25 03/14/25 05:28 07:20 10:55 MCV 100.9 H MCH 32.7 MCHC 32.5 RDW 15.2 Plt Count 207 MPV 10.6 Absolute Nucleated RBC 0.000 Nucleated RBC % (auto) 0.0 POC Glucose 108 184 H Vitamin B12 890 Folate 14.4 Assessment and Plan (1) Hematuria: Status: Acute Plan Pt is a 74-year-old male with a PMH significant for?asthma, kcq-rjhmazs-zspolylkg type 2 diabetes, HLD, HTN, and hx of bladder cancer s/p cystectomy and ileal loop urostomy who presents to the ED with?gross hematuria in ostomy bag. Pt is admitted to the hospital for treatment and further evaluation of hematuria concerning for recurrent urostomy bleed. Hematuria/stoma site bleeding Bleeding with clots resumed late this morning after no bleeding for past 36+ hours Previous bleeding from inside stoma, sutured by Dr. Narayan in Urology in the OR on 03/06 H&H currently stable and at baseline Seen by urology and general surgery; urology will re-evaluate this afternoon and make decision about OR procedure NPO after midnight Follow CBC, monitor for hematuria; transfuse as warrented Chronic mildly elevated LFTs Previous CT of abdomen and pelvis showed possible liver cirrhosis Pt denies alcohol use; hepatitis panel negative Asymptomatic, no abdominal pain Outpatient follow up Qpm-grdimrx-lfnabckvf type 2 diabetes Hold metformin Continue Januvia, SSI, diabetic diet Mild intermittent asthma Not in acute exacerbation Continue home inhalers, montelukast HTN Continue home antihypertensives Full Code DVT Prophylaxis: Pneumatic compression due to anemia and thrombocytopenia Pt will require additional hospitalization for close monitoring of H&H and for hematuria that will possibly require surgical intervention in the OR. Quality Stroke Does the patient have a stroke diagnosis?: No VTE Prior VTE?: No VTE Risk Level:: Medical - moderate - high VTE Device Contraindication: Treatment Not Indicated VTE Drug Contraindication: N/A - Med Ordered
[2025-03-14 16:06] LABS: Glucose, Whole Blood 187 mg/dL (60-115)
[2025-03-14 19:25] VITALS: BP 145/59; PULSE 70; RESP 18; TEMP 36.7; O2SAT 100
[2025-03-14 20:12] LABS: Glucose, Whole Blood 108 mg/dL (60-115)
[2025-03-15] VITALS (19 sets, daily range): BP systolic 113–147; BP diastolic 51–67; PULSE 65–77; RESP 16–20; TEMP 36.4–37.1; O2SAT 94–100
[2025-03-15 06:45] LABS: Hematocrit 22.7 % (42.0-52.0); Hemoglobin 7.4 g/dl (14.0-18.0); Mean Corpuscular HGB Conc 32.6 g/dl (31.0-36.0); Mean Corpuscular Hemoglobin 32.7 pg (27.0-33.0); Mean Corpuscular Volume 100.4 fL (80.0-98.0); NRBC Abs Auto 0.000 X10*3/uL (0.0-0.012); NRBC Pct Auto 0.0 /100WBC (0.0-0.2); Platelet Count 203 X10*3/uL (160-400); Red Blood Count 2.26 X10*6/uL (4.60-5.80); White Blood Count 7.0 X10*3/uL (4.8-10.8)
[2025-03-15 07:14] LABS: Glucose, Whole Blood 98 mg/dL (60-115)
[2025-03-15] MEDS: Fluticasone/Vilanterol 200/25 BLST.W.DEV 1 PUFF INHALE (07:52)
[2025-03-15] MEDS: 0.9 % Sodium Chloride Flush 3 ML SYRINGE IVFLUSH ×3 (09:29→23:30)
[2025-03-15 11:09] LABS: Glucose, Whole Blood 100 mg/dL (60-115)
--- NOTE | 2025-03-15 12:20 | P.PNUR_ITS ---
Subjective Subjective Date of Service: 03/15/25 Interval history: Plan for urostomy revision today Discussed inferior incision with localization of bleeding and control Physical Exam 2 Vital Signs: Vital Signs: Last Vital Signs Temp 97.7 F 03/15/25 10:59 Pulse 65 03/15/25 10:59 Resp 17 03/15/25 11:01 BP 131/61 03/15/25 10:59 Pulse Ox 99 03/15/25 10:33 O2 Del Method Room Air 03/15/25 10:33 BMI result Body Mass Index 25.6 Const: General: cooperative, healthy appearing, comfortable and no acute distress Orientation/consciousness: patient oriented x3 HEENT: Face and sinus: Yes normal facial exam Mouth: moist mucous membranes Neck: Neck: Yes normal visual inspection, Yes full ROM and Yes trachea midline Chest: Chest palpation & inspection: normal inspection of the chest Resp: Effort & Inspection: normal respiratory effort, able to speak in complete sentences and no respiratory distress GI: Inspection: Yes normal to inspection Back/Spine/Pelvis: Cervical Spine: normal cervical lordosis Thoracic/Lumbar Spine: thoracic and lumbar spine normal to inspection Skin: General skin exam: no rashes or lesions noted Neuro: General: patient oriented x3, tone normal and moves all extremities Extrem: General: Yes normal to inspection and Yes capillary refill normal Urology Results Labs 03/15/25 05:19 03/12/25 12:47 Labs: Laboratory Results - last 24 hr 03/12/25 03/14/25 03/14/25 14:54 16:02 20:06 WBC RBC Hgb Hct MCV MCH MCHC RDW Plt Count MPV Absolute Nucleated RBC Nucleated RBC % (auto) POC Glucose 187 H 108 Blood Type A Positive Antibody Screen NEGATIVE Crossmatch See Detail 03/15/25 03/15/25 03/15/25 05:19 07:09 11:06 WBC 7.0 RBC 2.26 L Hgb 7.4 L Hct 22.7 L MCV 100.4 H MCH 32.7 MCHC 32.6 RDW 15.3 Plt Count 203 MPV 10.5 Absolute Nucleated RBC 0.000 Nucleated RBC % (auto) 0.0 POC Glucose 98 100 Blood Type Antibody Screen Crossmatch Progress Note: A&P Assessment and plan (1) Complication of urostomy: Status: Acute Plan Risks, benefits and alternatives to therapy were discussed. These include but are not limited to infection, bleeding, damage to local organs and tissues, need for further interventions. Anesthetic risks regarding cardiac arrhythmia, blood clots, and potential mortality were discussed. The patient understands the typical recovery time and the outpatient nature of the procedure. After consideration of these risks the patient gives full informed consent and they wish to move ahead with the procedure. - ostomy revision Time Spent With Patient Time: Total time managing care of this patient today ____ minutes. Progress Note: Quality Stroke Does the patient have a stroke diagnosis?: No
--- NOTE | 2025-03-15 13:52 | P.PNIM_ITS ---
Subjective Subjective Date of Service: 03/15/25 Interval History: ongoing intermittent bleeding at urostomy consented for transfusion Review of Systems Review of Systems: Yes all other systems are reviewed and are negative Physical Exam 2 Vital Signs: Vital Signs: Last Vital Signs Temp 97.6 F 03/15/25 13:28 Pulse 65 03/15/25 13:28 Resp 17 03/15/25 13:28 BP 134/60 03/15/25 13:28 Pulse Ox 99 03/15/25 10:33 O2 Del Method Room Air 03/15/25 10:33 BMI result Body Mass Index 25.6 Gen: in no acute distress HEENT: sclera anicteric, moist mucus membranes Neck: supple Lungs: clear to auscultation bilaterally Heart: regular rate and rhythm, no murmurs Abd: soft, non-tender, non-distended, urostomy with blood-tinged urine Ext: no edema Skin: warm/well-perfused Neuro: alert and oriented x3, no focal findings Psych: appropriate affect Objective Data Active Medications Acetaminophen (Acetaminophen 325 Mg Tablet) 650 mg PO Q6H PRN PRN Reason: Pain, Mild 1-3,fever,headache Albuterol Sulfate (Albuterol Sulfate 90 Mcg 8 Gm Inhaler) 2 puff INHALE QID PRN PRN Reason: Shortness of Breath Atorvastatin Calcium (Atorvastatin Calcium 20 Mg Tablet) 20 mg PO DAILY [facility] Last Admin: 03/15/25 07:48 Dose: Not Given Documented By: FLASH Non-Admin Reason: NPO Bisacodyl (Bisacodyl 5 Mg Tablet.) 5 mg PO BEDTIME PRN PRN Reason: Constipation Cefuroxime Axetil (Cefuroxime Axetil 500 Mg Tablet) 500 mg PO Q12H [facility] Last Admin: 03/15/25 06:18 Dose: 500 mg Documented By: IGOR Dextrose (Dextrose 50 % 25 Gm/50 Ml Syringe) 25 gm IVPUSH Q15M PRN; Protocol PRN Reason: per Hypoglycemia Standing Ord. Docusate Sodium (Docusate Sodium 100 Mg Capsule) 100 mg PO DAILY PRN PRN Reason: Constipation Ferrous Sulfate (Ferrous Sulfate 324 Mg Tablet.) 324 mg PO DAILY [facility] Last Admin: 03/15/25 07:47 Dose: Not Given Documented By: FLASH Non-Admin Reason: NPO Fluticasone/Vilanterol (Fluticasone/Vilanterol 200/25 Blst.W.Dev) 1 puff INHALE RDAILY [facility] Last Admin: 03/15/25 07:52 Dose: 1 puff Documented By: AMY Folic Acid (Folic Acid 1 Mg Tablet) 1 mg PO DAILY [facility] Last Admin: 03/15/25 07:48 Dose: Not Given Documented By: FLASH Non-Admin Reason: NPO Glucose (Glucose Gel 15 Gm Gel..Gram.) 15 gm PO Q15M PRN; Protocol PRN Reason: per Hypoglycemia Standing Ord. Insulin Human Lispro (Insulin Lispro 100 Unit/Ml 3 Ml Vial) 0 unit SUBCUT QIDACHS [facility]; Protocol Last Admin: 03/15/25 12:21 Dose: Not Given Documented By: FLASH Non-Admin Reason: No Insulin Coverage Magnesium Hydroxide (Milk Of Magnesia 30 Ml Oral.Susp) 30 ml PO DAILY PRN PRN Reason: Constipation Melatonin (Melatonin 3 Mg Tablet) 6 mg PO BEDTIME PRN PRN Reason: Insomnia Montelukast Sodium (Montelukast Sodium 10 Mg Tablet) 10 mg PO DAILY [facility] Last Admin: 03/15/25 09:28 Dose: 10 mg Documented By: FLASH Multivitamins/Vitamin C (Multivitamin Tablet) 1 tab PO DAILY [facility] Last Admin: 03/15/25 07:47 Dose: Not Given Documented By: FLASH Non-Admin Reason: NPO Oxycodone HCl (Oxycodone Hcl Immed Release 5 Mg Tablet) 5 mg PO Q6H PRN PRN Reason: Pain, Severe (Pain Scale 7-10) Sitagliptin Phosphate (Sitagliptin Phosphate 50 Mg Tablet) 50 mg PO DAILY [facility] Last Admin: 03/15/25 07:49 Dose: Not Given Documented By: FLASH Non-Admin Reason: NPO Sodium Chloride (0.9 % Sodium Chloride Flush 3 Ml Syringe) 3 ml IVFLUSH QSHIFT [facility] Last Admin: 03/15/25 09:29 Dose: 3 ml Documented By: FLASH Valsartan (Valsartan 40 Mg Tablet) 40 mg PO DAILY [facility] Last Admin: 03/15/25 09:28 Dose: 40 mg Documented By: FLASH Labs 03/15/25 05:19 03/12/25 12:47 Labs: Laboratory Results - last 24 hr 03/12/25 03/14/25 03/14/25 14:54 16:02 20:06 MCV MCH MCHC RDW Plt Count MPV Absolute Nucleated RBC Nucleated RBC % (auto) POC Glucose 187 H 108 Blood Type A Positive Antibody Screen NEGATIVE Crossmatch See Detail 03/15/25 03/15/25 03/15/25 05:19 07:09 11:06 MCV 100.4 H MCH 32.7 MCHC 32.6 RDW 15.3 Plt Count 203 MPV 10.5 Absolute Nucleated RBC 0.000 Nucleated RBC % (auto) 0.0 POC Glucose 98 100 Blood Type Antibody Screen Crossmatch Assessment and Plan (1) Hematuria: Status: Acute Plan d4, 74yo M with hx bladder CA s/p cystectomy + ileal loop urostomy, DM2, asthma, HLD, HTN presenting with hematuria/urostomy bleed urostomy bleed/hematuria - previous bleeding from inside stoma sutured by Urology 03/06 - plan back to OR today for bleeding control, Gen Surg + Urology consulted UTI - completed cefuroxime from last admission acute blood loss anemia - transfuse 1u pRBCs preop, check H+H daily liver cirrhosis, ?Potts - outpt f/u DM2 - hold MTF, continue delilah-dose lispro + sitagliptin HTN - valsartan HLD - statin asthma not in acute exacerbation - montelukast, Breo, prn albuterol VTE ppx - SCDs, no heparin given bleeding urostomy dispo - TBD In my clinical judgment, the patient requires continued inpatient hospitalization for the following reasons: operative intervention Total time managing care of this patient today: 45 minutes. Quality Stroke Does the patient have a stroke diagnosis?: No VTE Prior VTE?: No VTE Risk Level:: Medical - moderate - high VTE Device Contraindication: Treatment Not Indicated VTE Drug Contraindication: N/A - Med Ordered
--- NOTE | 2025-03-15 15:32 | HO.ANESPROP2 ---
PENDING SALE TO [facility] Active Problems Active Problems: All Active Problems Complication of urostomy (Acute) Hematuria (Acute) Low bicarbonate (Acute) Hematuria (Acute) History of bladder cancer (Acute) Abnormal CT scan, chest (Acute) Hyponatremia (Acute) Mass of left lung (Acute) Metabolic acidosis (Acute) LUIS (acute kidney injury) (Acute) Sepsis (Acute) Bladder cancer (Acute) Past Medical History Medical History (Updated 03/15/25 @ 00:02 by Morenita Nova) Cirrhosis of liver Complication of urostomy HTN (hypertension) Acute hyponatremia Hydronephrosis Bladder cancer Asthma Diabetes Bladder cancer Incomplete emptying of bladder due to benign prostatic hyperplasia Complicated urinary tract infection Family History Family history of problems with anesthesia: No Surgical History Surgical History History of surgery History of ileal conduit History of Problems with Anesthesia: No Social History Social History Household Members: Spouse and Family Housing: House Are you a primary manager long term care to a significant other at home: No Do you presently have visiting nurse or other home services: Yes (kassy) Alcohol intake: never Comment: bedside Patient Tobacco Use Status: Never used Tobacco Smoked in Last 30 Days: No Use of substances other than those prescribed or required for medical reasons: No Currently Displaying Signs/Symptoms of Drug Intoxication Withdrawal: No Have you been hit, kicked, punched, or otherwise hurt by someone within the past year? If so, by whom?: No Do you feel safe in your current relationship?: Yes Is there a partner from a previous relationship who is making you feel unsafe now?: No Are you made to feel afraid or neglected: No Advance Directives: Yes Advance Directives Information Provided: Yes Advance Directives on File: No Advance Directives Date on File: 03/12/25 Do you have a plan to hurt others: No Plan Recently lost weight without trying: No Nutrition Risks: No Nutritional Risk Poor oral hygiene: No service: No Current occupational status: retired Meds Allergies Allergy/AdvReac Type Severity Reaction Status Date / Time aspirin Allergy Unknown Verified 03/12/25 12:22 Beta-Blockers AdvReac Unknown Verified 03/12/25 12:22 (Beta-Adrenergic Bloc ibuprofen AdvReac Unknown Verified 03/12/25 12:22 Active Medications: Current Medications Acetaminophen (Acetaminophen 325 Mg Tablet) 650 mg PO Q6H PRN PRN Reason: Pain, Mild 1-3,fever,headache Albuterol Sulfate (Albuterol Sulfate 90 Mcg 8 Gm Inhaler) 2 puff INHALE QID PRN PRN Reason: Shortness of Breath Atorvastatin Calcium (Atorvastatin Calcium 20 Mg Tablet) 20 mg PO DAILY [facility] Last Admin: 03/15/25 07:48 Dose: Not Given Bisacodyl (Bisacodyl 5 Mg Tablet.) 5 mg PO BEDTIME PRN PRN Reason: Constipation Dextrose (Dextrose 50 % 25 Gm/50 Ml Syringe) 25 gm IVPUSH Q15M PRN; Protocol PRN Reason: per Hypoglycemia Standing Ord. Docusate Sodium (Docusate Sodium 100 Mg Capsule) 100 mg PO DAILY PRN PRN Reason: Constipation Ferrous Sulfate (Ferrous Sulfate 324 Mg Tablet.) 324 mg PO DAILY [facility] Last Admin: 03/15/25 07:47 Dose: Not Given Fluticasone/Vilanterol (Fluticasone/Vilanterol 200/25 Blst.W.Dev) 1 puff INHALE RDAILY [facility] Last Admin: 03/15/25 07:52 Dose: 1 puff Folic Acid (Folic Acid 1 Mg Tablet) 1 mg PO DAILY [facility] Last Admin: 03/15/25 07:48 Dose: Not Given Glucose (Glucose Gel 15 Gm Gel..Gram.) 15 gm PO Q15M PRN; Protocol PRN Reason: per Hypoglycemia Standing Ord. Insulin Human Lispro (Insulin Lispro 100 Unit/Ml 3 Ml Vial) 0 unit SUBCUT QIDACHS [facility]; Protocol Last Admin: 03/15/25 12:21 Dose: Not Given Magnesium Hydroxide (Milk Of Magnesia 30 Ml Oral.Susp) 30 ml PO DAILY PRN PRN Reason: Constipation Melatonin (Melatonin 3 Mg Tablet) 6 mg PO BEDTIME PRN PRN Reason: Insomnia Montelukast Sodium (Montelukast Sodium 10 Mg Tablet) 10 mg PO DAILY [facility] Last Admin: 03/15/25 09:28 Dose: 10 mg Multivitamins/Vitamin C (Multivitamin Tablet) 1 tab PO DAILY [facility] Last Admin: 03/15/25 07:47 Dose: Not Given Oxycodone HCl (Oxycodone Hcl Immed Release 5 Mg Tablet) 5 mg PO Q6H PRN PRN Reason: Pain, Severe (Pain Scale 7-10) Sitagliptin Phosphate (Sitagliptin Phosphate 50 Mg Tablet) 50 mg PO DAILY [facility] Last Admin: 03/15/25 07:49 Dose: Not Given Sodium Chloride (0.9 % Sodium Chloride Flush 3 Ml Syringe) 3 ml IVFLUSH QSHIFT [facility] Last Admin: 03/15/25 09:29 Dose: 3 ml Valsartan (Valsartan 40 Mg Tablet) 40 mg PO DAILY [facility] Last Admin: 03/15/25 09:28 Dose: 40 mg Home Medications ?Medication ?Instructions ?Recorded ?Confirmed ?Last Taken ?Type blood sugar diagnostic (FreeStyle #10 ea 04/18/21 01/05/24 Unknown History Lite Strips) montelukast 10 mg tablet 10 mg PO DAILY 04/18/21 03/12/25 02/28/25 History lancets 28 gauge (FreeStyle #100 ea 06/24/21 01/05/24 Unknown History Lancets) folic acid 1 mg tablet 1 mg PO DAILY 12/10/21 03/12/25 02/28/25 History albuterol sulfate 90 mcg/actuation 2 puff PO QID PRN Shortness Of 02/08/22 03/12/25 Unknown History aerosol inhaler Breath atorvastatin 20 mg tablet 20 mg PO DAILY 03/01/25 03/12/25 02/28/25 History ferrous sulfate 325 mg (65 mg 325 mg PO DAILY 03/01/25 03/12/25 02/28/25 History iron) tablet (iron) metformin 500 mg tablet 500 mg PO BID 03/01/25 03/12/25 02/28/25 History sitagliptin phosphate 50 mg tablet 50 mg PO DAILY 03/01/25 03/12/25 02/28/25 History (Januvia) telmisartan 20 mg tablet 20 mg PO DAILY 03/01/25 03/12/25 02/28/25 History vitamin B complex 1 tab PO DAILY 03/01/25 03/12/25 02/28/25 History Exam Height,Weight and Vital Signs: Height 5 ft 2 in Weight 63.6 kg Last Vital Signs Temp 98.8 F 03/15/25 15:29 Pulse 69 03/15/25 15:29 Resp 17 03/15/25 15:29 BP 140/60 H 03/15/25 15:29 Pulse Ox 99 03/15/25 15:29 O2 Del Method Room Air 03/15/25 15:29 Pertinent Lab Results Pertinent Lab Results: Laboratory Tests 03/12/25 03/12/25 03/12/25 12:47 14:12 14:54 WBC 6.0 RBC 2.32 L Hgb 7.5 L Hct 23.5 L MCV 101.3 H MCH 32.3 MCHC 31.9 RDW 15.2 Plt Count 186 MPV 9.9 Immature Gran % (Auto) 0.8 H Neut % (Auto) 68.2 Lymph % (Auto) 15.1 L Pepin % (Auto) 8.1 Eos % (Auto) 7.1 H Baso % (Auto) 0.7 Lymph # (Auto) 0.9 L Pepin # (Auto) 0.5 Eos # (Auto) 0.4 Baso # (Auto) 0.0 Abs Immat Gran (auto) 0.05 H Absolute Neuts (auto) 4.1 Absolute Nucleated RBC 0.000 Nucleated RBC % (auto) 0.0 PT 13.0 H INR 1.1 APTT 37.0 H Sodium 140 Potassium 4.7 Chloride 107 Carbon Dioxide 25 Anion Gap 13 BUN 12 Creatinine 1.05 Estim Creat Clear Calc 49.2 Estimated GFR > 60 POC Glucose Random Glucose 168 H Calcium 8.5 Magnesium 1.8 Total Bilirubin 0.6 AST 58 H ALT 35 Alkaline Phosphatase 332 H Total Protein 6.5 Albumin 3.0 L Vitamin B12 Folate Urine Color RED Urine Appearance Turbid Urine pH 8.0 Ur Specific [place] 1.020 Urine Protein 300 (3+) H Urine Glucose (UA) Negative Urine Ketones Negative Urine Blood Large (3+) H Urine Nitrite Negative Ur Leukocyte Esterase Trace H Urine RBC >20 H Urine WBC 0-5 Ur Squamous Epith Cells 0-2 Urine Bacteria Trace Hyaline Casts 0-2 Blood Type A Positive Antibody Screen NEGATIVE Crossmatch See Detail 03/12/25 03/12/25 03/13/25 18:26 20:08 07:10 WBC RBC Hgb Hct MCV MCH MCHC RDW Plt Count MPV Immature Gran % (Auto) Neut % (Auto) Lymph % (Auto) Pepin % (Auto) Eos % (Auto) Baso % (Auto) Lymph # (Auto) Pepin # (Auto) Eos # (Auto) Baso # (Auto) Abs Immat Gran (auto) Absolute Neuts (auto) Absolute Nucleated RBC Nucleated RBC % (auto) PT INR APTT Sodium Potassium Chloride Carbon Dioxide Anion Gap BUN Creatinine Estim Creat Clear Calc Estimated GFR POC Glucose 155 H 150 H 96 Random Glucose Calcium Magnesium Total Bilirubin AST ALT Alkaline Phosphatase Total Protein Albumin Vitamin B12 Folate Urine Color Urine Appearance Urine pH Ur Specific [place] Urine Protein Urine Glucose (UA) Urine Ketones Urine Blood Urine Nitrite Ur Leukocyte Esterase Urine RBC Urine WBC Ur Squamous Epith Cells Urine Bacteria Hyaline Casts Blood Type Antibody Screen Crossmatch 03/13/25 03/13/25 03/13/25 10:59 16:13 17:30 WBC 6.3 RBC 2.29 L Hgb 7.6 L Hct MCV MCH MCHC RDW Plt Count MPV Immature Gran % (Auto) Neut % (Auto) Lymph % (Auto) Pepin % (Auto) Eos % (Auto) Baso % (Auto) Lymph # (Auto) Pepin # (Auto) Eos # (Auto) Baso # (Auto) Abs Immat Gran (auto) Absolute Neuts (auto) Absolute Nucleated RBC Nucleated RBC % (auto) PT INR APTT Sodium Potassium Chloride Carbon Dioxide Anion Gap BUN Creatinine Estim Creat Clear Calc Estimated GFR POC Glucose 100 151 H Random Glucose Calcium Magnesium Total Bilirubin AST ALT Alkaline Phosphatase Total Protein Albumin Vitamin B12 Folate Urine Color Urine Appearance Urine pH Ur Specific [place] Urine Protein Urine Glucose (UA) Urine Ketones Urine Blood Urine Nitrite Ur Leukocyte Esterase Urine RBC Urine WBC Ur Squamous Epith Cells Urine Bacteria Hyaline Casts Blood Type Antibody Screen Crossmatch 03/13/25 03/13/25 03/13/25 17:30 17:30 20:20 WBC RBC Hgb 7.7 L Hct 23.2 L 23.2 L MCV 101.3 H MCH 33.2 H MCHC 32.8 RDW 15.5 Plt Count 183 MPV 10.3 Immature Gran % (Auto) Neut % (Auto) Lymph % (Auto) Pepin % (Auto) Eos % (Auto) Baso % (Auto) Lymph # (Auto) Pepin # (Auto) Eos # (Auto) Baso # (Auto) Abs Immat Gran (auto) Absolute Neuts (auto) Absolute Nucleated RBC 0.000 Nucleated RBC % (auto) 0.0 PT INR APTT Sodium Potassium Chloride Carbon Dioxide Anion Gap BUN Creatinine Estim Creat Clear Calc Estimated GFR POC Glucose 122 H Random Glucose Calcium Magnesium Total Bilirubin AST ALT Alkaline Phosphatase Total Protein Albumin Vitamin B12 Folate Urine Color Urine Appearance Urine pH Ur Specific [place] Urine Protein Urine Glucose (UA) Urine Ketones Urine Blood Urine Nitrite Ur Leukocyte Esterase Urine RBC Urine WBC Ur Squamous Epith Cells Urine Bacteria Hyaline Casts Blood Type Antibody Screen Crossmatch 03/14/25 03/14/25 03/14/25 05:28 07:20 10:55 WBC 7.4 RBC 2.26 L Hgb 7.4 L Hct 22.8 L MCV 100.9 H MCH 32.7 MCHC 32.5 RDW 15.2 Plt Count 207 MPV 10.6 Immature Gran % (Auto) Neut % (Auto) Lymph % (Auto) Pepin % (Auto) Eos % (Auto) Baso % (Auto) Lymph # (Auto) Pepin # (Auto) Eos # (Auto) Baso # (Auto) Abs Immat Gran (auto) Absolute Neuts (auto) Absolute Nucleated RBC 0.000 Nucleated RBC % (auto) 0.0 PT INR APTT Sodium Potassium Chloride Carbon Dioxide Anion Gap BUN Creatinine Estim Creat Clear Calc Estimated GFR POC Glucose 108 184 H Random Glucose Calcium Magnesium Total Bilirubin AST ALT Alkaline Phosphatase Total Protein Albumin Vitamin B12 890 Folate 14.4 Urine Color Urine Appearance Urine pH Ur Specific [place] Urine Protein Urine Glucose (UA) Urine Ketones Urine Blood Urine Nitrite Ur Leukocyte Esterase Urine RBC Urine WBC Ur Squamous Epith Cells Urine Bacteria Hyaline Casts Blood Type Antibody Screen Crossmatch 03/14/25 03/14/25 03/15/25 16:02 20:06 05:19 WBC 7.0 RBC 2.26 L Hgb 7.4 L Hct 22.7 L MCV 100.4 H MCH 32.7 MCHC 32.6 RDW 15.3 Plt Count 203 MPV 10.5 Immature Gran % (Auto) Neut % (Auto) Lymph % (Auto) Pepin % (Auto) Eos % (Auto) Baso % (Auto) Lymph # (Auto) Pepin # (Auto) Eos # (Auto) Baso # (Auto) Abs Immat Gran (auto) Absolute Neuts (auto) Absolute Nucleated RBC 0.000 Nucleated RBC % (auto) 0.0 PT INR APTT Sodium Potassium Chloride Carbon Dioxide Anion Gap BUN Creatinine Estim Creat Clear Calc Estimated GFR POC Glucose 187 H 108 Random Glucose Calcium Magnesium Total Bilirubin AST ALT Alkaline Phosphatase Total Protein Albumin Vitamin B12 Folate Urine Color Urine Appearance Urine pH Ur Specific [place] Urine Protein Urine Glucose (UA) Urine Ketones Urine Blood Urine Nitrite Ur Leukocyte Esterase Urine RBC Urine WBC Ur Squamous Epith Cells Urine Bacteria Hyaline Casts Blood Type Antibody Screen Crossmatch 03/15/25 03/15/25 07:09 11:06 WBC RBC Hgb Hct MCV MCH MCHC RDW Plt Count MPV Immature Gran % (Auto) Neut % (Auto) Lymph % (Auto) Pepin % (Auto) Eos % (Auto) Baso % (Auto) Lymph # (Auto) Pepin # (Auto) Eos # (Auto) Baso # (Auto) Abs Immat Gran (auto) Absolute Neuts (auto) Absolute Nucleated RBC Nucleated RBC % (auto) PT INR APTT Sodium Potassium Chloride Carbon Dioxide Anion Gap BUN Creatinine Estim Creat Clear Calc Estimated GFR POC Glucose 98 100 Random Glucose Calcium Magnesium Total Bilirubin AST ALT Alkaline Phosphatase Total Protein Albumin Vitamin B12 Folate Urine Color Urine Appearance Urine pH Ur Specific [place] Urine Protein Urine Glucose (UA) Urine Ketones Urine Blood Urine Nitrite Ur Leukocyte Esterase Urine RBC Urine WBC Ur Squamous Epith Cells Urine Bacteria Hyaline Casts Blood Type Antibody Screen Crossmatch Airway Mallampati Class: II (poor dentition, bottom lateral right tooth loose) TM Dist: >3cm Neck ROM: Full Heart: rrr Lungs: cya Assessment and Plan Assessment Anesthesia Assessment: Anesthesia Plan Discussed and Chart Reviewed Final Anesthetic Review Family History of Problems with Anesthesia: No History of Problems with Anesthesia: No NPO: Yes ASA Class: III Final Preanesthetic Review: No Changes in Pt Med Stat, Meds/Allgs Chart Reviewed and Consent Obtained/Reviewed Patient Risk: Intermediate Procedure Risk: Low Anesthetic Plan Anesthetic Plan: MAC: Disposition: Standard PACU
--- NOTE | 2025-03-15 16:31 | MHC.SHP ---
Pre-Procedural Eval Section A - 24 Hr Update-Section A only Date of Service: 03/15/25 The patient is an INPATIENT: Yes Changes since office visit: No Cold of Flu in the past 2 weeks, No New Medical Problems, No Changes in Medication and No Patient answered all questions The patient has been examined within 24 hours of the surgical procedure. The History & Physical has been completed within 30 days and I have reviewed it.: Yes Section B - Complete if H&P > 30 days Chief Complaint: hematuria Details of Present Illness: ileostomy revision sceondary to bleeding and chronic anemia Allergies: Allergies Allergy/AdvReac Type Severity Reaction Status Date / Time aspirin Allergy Unknown Verified 03/12/25 12:22 Beta-Blockers AdvReac Unknown Verified 03/12/25 12:22 (Beta-Adrenergic Bloc ibuprofen AdvReac Unknown Verified 03/12/25 12:22 Plan I have reviewed the history and physical and performed a pertinent physical examination on my patient. No changes have occurred unless specified. Time Spent With Patient Time: Total time managing care of this patient today ____ minutes.
--- NOTE | 2025-03-15 17:40 | W.PM.OPN ---
Operative Note Operative Note Date of Service: 03/15/25 Narrative: PreOperative Diagnosis: bleeding from edge of ileostomy Post Operative Diagnosis: bleeding from edge of ileostomy Procedure: revision of ileostomy Surgeon: Dr Mauro Narayan Anesthesia: LMA Indications for procedure: 74-year-old male. Previous cystectomy with ileal conduit performed in 2020 in [place]. Subsequently has been very stable and shown no sign of recurrent disease in follow-up surveillance. Presents to hospital with hematuria which was found to be oozing from the inferior aspect of the ileostomy site. Requiring transfusion. Platelet count 200. INR at top of normal range. Patient with baseline diagnosis of mild liver dysfunction. AST 60. Procedure: After informed consent was verified the patient was brought to the operating room and placed in a supine position. Anesthesia was administered per protocol. The patient was prepped and draped in a sterile fashion. Safety pause time-out was performed. Antibiotics being given. Local anesthetic applied to lower half of stoma skin interface. Judge catheter 16 Egyptian placed through stoma into ileal conduit. This was attached to drainage bag. Two 3-0 Vicryl sutures placed through lower lip of stoma to assist with elevation. Using Bovie cautery incision made through lower half skin/conduit interface. This was carefully dissected in subcutaneous fat. Taken down till fascia was palpable. There was bleeding from the medial edge consistent with the feeding supply from the mesentery. [id number] 3-0 Vicryl sutures placed. Small hole noted through ileal conduit wall and Judge catheter visible. Closed with interrupted 3-0 Vicryl sutures. No other clear bleeding sites were seen. Decision made to place Surgicel in area to assist with hemostasis. Small piece was cut and placed on the under side of the ileal conduit. Stoma skin edge reapproximated with running 4-0 Monocryl. Stoma appliance applied. Judge catheter placed inside ileostomy bag. Ileostomy bag drainage attached to Judge catheter drainage bag. Patient was extubated in the operating room and transferred in stable condition to the recovery area Single dose tranexamic acid ordered in operating room and single unit platelets order for transfusion in order to help maintain hemostasis. Pathology: Drains: Stoma 16 Egyptian Judge catheter
[2025-03-15 18:15] LABS: Glucose, Whole Blood 100 mg/dL (60-115)
[2025-03-15 20:09] LABS: Glucose, Whole Blood 170 mg/dL (60-115)
[2025-03-16 03:35] VITALS: BP 141/63; PULSE 64; RESP 18; TEMP 36.5; O2SAT 99
[2025-03-16 06:04] LABS: Hematocrit 25.7 % (42.0-52.0); Hemoglobin 8.4 g/dl (14.0-18.0); Mean Corpuscular HGB Conc 32.7 g/dl (31.0-36.0); Mean Corpuscular Hemoglobin 30.8 pg (27.0-33.0); Mean Corpuscular Volume 94.1 fL (80.0-98.0); NRBC Abs Auto 0.000 X10*3/uL (0.0-0.012); NRBC Pct Auto 0.0 /100WBC (0.0-0.2); Platelet Count 174 X10*3/uL (160-400); Red Blood Count 2.73 X10*6/uL (4.60-5.80); White Blood Count 7.0 X10*3/uL (4.8-10.8)
[2025-03-16 06:12] LABS: Anion Gap 11 (12-20); Blood Urea Nitrogen 14 mg/dL (9-16); Calcium 8.1 mg/dL (8.4-10.2); Carbon Dioxide 24 mmol/L (22-29); Chloride 105 mmol/L (96-108); Creatinine Clr Calc Pharmacy 43.7; Estimated Glomerular Filt Rate > 60; Potassium 4.8 mmol/L (3.3-5.1); Sodium 135 mmol/L (135-145)
[2025-03-16 06:59] VITALS: BP 129/60; PULSE 71; RESP 15; TEMP 36.6; O2SAT 97
[2025-03-16 07:10] LABS: Glucose, Whole Blood 96 mg/dL (60-115)
[2025-03-16] MEDS: Ferrous Sulfate 324 MG TABLET.DR PO (07:48)
--- NOTE | 2025-03-16 08:00 | HO.POSTANES ---
Post Anesthesia Evaluation Post Anesthesia Evaluation Date of Service: 03/16/25 Vital Signs: Vital Signs Temp Pulse Resp BP Pulse Ox O2 Del Method 03/16/25 06:59 97.8 F 71 15 129/60 97 Room Air 03/16/25 03:35 97.7 F 64 18 141/63 H 99 Room Air 03/15/25 22:59 97.7 F 71 18 119/57 L 03/15/25 20:27 97.5 F 73 20 116/59 L Anesthesia: General Mental Status: Awake Pain Control: Satisfactory Nausea/Vomiting: None Hydration: Adequate Anesthesia-Related Issues: No Anes. Related Issues
[2025-03-16] MEDS: 0.9 % Sodium Chloride Flush 3 ML SYRINGE IVFLUSH ×3 (08:02→21:46)
[2025-03-16] MEDS: Fluticasone/Vilanterol 200/25 BLST.W.DEV 1 PUFF INHALE (08:23)
[2025-03-16 08:24] VITALS: PULSE 71; RESP 15; O2SAT 99
--- NOTE | 2025-03-16 10:24 | HO.PM.IMPN ---
Subjective Subjective Date of Service: 03/16/25 Interval History: POD1 urostomy revision, no further bleeding, tolerated transfusion, pain under control Review of Systems Review of Systems: Yes all other systems are reviewed and are negative Physical Exam Vital Signs: Vital Signs: Last Vital Signs Temp 97.8 F 03/16/25 06:59 Pulse 71 03/16/25 08:24 Resp 15 03/16/25 08:24 BP 129/60 03/16/25 06:59 Pulse Ox 97 03/16/25 06:59 O2 Del Method Room Air 03/16/25 06:59 BMI result Body Mass Index 25.6 Gen: in no acute distress HEENT: sclera anicteric, moist mucus membranes Neck: supple Lungs: clear to auscultation bilaterally Heart: regular rate and rhythm, no murmurs Abd: soft, non-tender, non-distended, urostomy with clear urine Ext: no edema Skin: warm/well-perfused Neuro: alert and oriented x3, no focal findings Psych: appropriate affect Objective Data Active Medications Acetaminophen (Acetaminophen 325 Mg Tablet) 650 mg PO Q6H PRN PRN Reason: Pain, Mild 1-3,fever,headache Last Admin: 03/16/25 08:01 Dose: 650 mg Documented By: FLASH Albuterol Sulfate (Albuterol Sulfate 90 Mcg 8 Gm Inhaler) 2 puff INHALE QID PRN PRN Reason: Shortness of Breath Atorvastatin Calcium (Atorvastatin Calcium 20 Mg Tablet) 20 mg PO DAILY [facility] Last Admin: 03/16/25 07:47 Dose: 20 mg Documented By: FLASH Bisacodyl (Bisacodyl 5 Mg Tablet.) 5 mg PO BEDTIME PRN PRN Reason: Constipation Dextrose (Dextrose 50 % 25 Gm/50 Ml Syringe) 25 gm IVPUSH Q15M PRN; Protocol PRN Reason: per Hypoglycemia Standing Ord. Docusate Sodium (Docusate Sodium 100 Mg Capsule) 100 mg PO DAILY PRN PRN Reason: Constipation Ferrous Sulfate (Ferrous Sulfate 324 Mg Tablet.) 324 mg PO DAILY [facility] Last Admin: 03/16/25 07:48 Dose: 324 mg Documented By: FLASH Fluticasone/Vilanterol (Fluticasone/Vilanterol 200/25 Blst.W.Dev) 1 puff INHALE RDAILY [facility] Last Admin: 03/16/25 08:23 Dose: 1 puff Documented By: SERGIO Folic Acid (Folic Acid 1 Mg Tablet) 1 mg PO DAILY [facility] Last Admin: 03/16/25 07:47 Dose: 1 mg Documented By: FLASH Glucose (Glucose Gel 15 Gm Gel..Gram.) 15 gm PO Q15M PRN; Protocol PRN Reason: per Hypoglycemia Standing Ord. Insulin Human Lispro (Insulin Lispro 100 Unit/Ml 3 Ml Vial) 0 unit SUBCUT QIDACHS [facility]; Protocol Last Admin: 03/16/25 07:29 Dose: Not Given Documented By: FLASH Non-Admin Reason: No Insulin Coverage Magnesium Hydroxide (Milk Of Magnesia 30 Ml Oral.Susp) 30 ml PO DAILY PRN PRN Reason: Constipation Melatonin (Melatonin 3 Mg Tablet) 6 mg PO BEDTIME PRN PRN Reason: Insomnia Montelukast Sodium (Montelukast Sodium 10 Mg Tablet) 10 mg PO DAILY [facility] Last Admin: 03/16/25 07:48 Dose: 10 mg Documented By: FLASH Multivitamins/Vitamin C (Multivitamin Tablet) 1 tab PO DAILY [facility] Last Admin: 03/16/25 07:48 Dose: 1 tab Documented By: FLASH Naloxone HCl (Naloxone Hcl 0.4 Mg/Ml Vial) 0.04 mg IVPUSH Q5M PRN PRN Reason: Excessive sedation or RR < 8 Oxycodone HCl (Oxycodone Hcl Immed Release 5 Mg Tablet) 5 mg PO Q6H PRN PRN Reason: Pain, Severe (Pain Scale 7-10) Sitagliptin Phosphate (Sitagliptin Phosphate 50 Mg Tablet) 50 mg PO DAILY [facility] Last Admin: 03/16/25 07:48 Dose: 50 mg Documented By: FLASH Sodium Chloride (0.9 % Sodium Chloride Flush 3 Ml Syringe) 3 ml IVFLUSH QSHIFT [facility] Last Admin: 03/16/25 08:02 Dose: 3 ml Documented By: FLASH Valsartan (Valsartan 40 Mg Tablet) 40 mg PO DAILY [facility] Last Admin: 03/16/25 07:47 Dose: 40 mg Documented By: FLASH Labs 03/16/25 05:39 03/16/25 05:39 Labs: Laboratory Results - last 24 hr 0803/15/25 03/15/25 14:54 11:06 18:00 MCV MCH MCHC RDW Plt Count MPV Absolute Nucleated RBC Nucleated RBC % (auto) Anion Gap Estim Creat Clear Calc Estimated GFR POC Glucose 100 Random Glucose Calcium Blood Type A Positive A Positive Antibody Screen NEGATIVE NEGATIVE Crossmatch See Detail 03/15/25 03/15/25 03/16/25 18:11 20:06 05:39 MCV 94.1 D MCH 30.8 MCHC 32.7 RDW 18.9 H Plt Count 174 MPV 9.9 Absolute Nucleated RBC 0.000 Nucleated RBC % (auto) 0.0 Anion Gap 11 L Estim Creat Clear Calc 43.7 Estimated GFR > 60 POC Glucose 100 170 H Random Glucose 113 Calcium 8.1 L Blood Type Antibody Screen Crossmatch 03/16/25 07:07 MCV MCH MCHC RDW Plt Count MPV Absolute Nucleated RBC Nucleated RBC % (auto) Anion Gap Estim Creat Clear Calc Estimated GFR POC Glucose 96 Random Glucose Calcium Blood Type Antibody Screen Crossmatch Assessment and Plan (1) Hematuria: Status: Acute Plan d5, 74yo M with hx bladder CA s/p cystectomy + ileal loop urostomy, DM2, asthma, HLD, HTN presenting with hematuria/urostomy bleed urostomy bleed/hematuria - previous bleeding from inside stoma sutured by Urology 03/06 - POD1 urostomy revision 03/15, also given TXA + 1u plts + 1u pRBCs UTI - completed cefuroxime from last admission acute blood loss anemia - improved p 1u pRBCs liver cirrhosis, ?SCHNEIDER - outpt f/u with GI DM2 - hold MTF, continue delilah-dose lispro + sitagliptin HTN - valsartan HLD - statin asthma not in acute exacerbation - montelukast, Breo, prn albuterol VTE ppx - SCDs, no heparin given bleeding urostomy dispo - TBD In my clinical judgment, the patient requires continued inpatient hospitalization for the following reasons: postoperative care Total time managing care of this patient today: 45 minutes. Quality Stroke Does the patient have a stroke diagnosis?: No VTE Prior VTE?: No VTE Risk Level:: Medical - moderate - high VTE Device Contraindication: Treatment Not Indicated VTE Drug Contraindication: N/A - Med Ordered
[2025-03-16 11:04] LABS: Glucose, Whole Blood 175 mg/dL (60-115)
[2025-03-16 15:27] VITALS: BP 128/60; PULSE 67; RESP 18; TEMP 37; O2SAT 99
[2025-03-16 15:49] LABS: Glucose, Whole Blood 190 mg/dL (60-115)
[2025-03-16 19:46] VITALS: BP 150/68; PULSE 71; RESP 18; TEMP 37.1; O2SAT 98
[2025-03-16 20:36] LABS: Glucose, Whole Blood 126 mg/dL (60-115)
[2025-03-17 03:01] VITALS: BP 138/65; PULSE 72; RESP 18; TEMP 36.2; O2SAT 100
--- NOTE | 2025-03-17 04:24 | PC.NURSE ---
Handoff report given to oncoming RN at 03:45.
[2025-03-17 07:09] LABS: Hematocrit 26.8 % (42.0-52.0); Hemoglobin 9.0 g/dl (14.0-18.0); Mean Corpuscular HGB Conc 33.6 g/dl (31.0-36.0); Mean Corpuscular Hemoglobin 31.9 pg (27.0-33.0); Mean Corpuscular Volume 95.0 fL (80.0-98.0); NRBC Abs Auto 0.000 X10*3/uL (0.0-0.012); NRBC Pct Auto 0.0 /100WBC (0.0-0.2); Platelet Count 163 X10*3/uL (160-400); Red Blood Count 2.82 X10*6/uL (4.60-5.80); White Blood Count 7.2 X10*3/uL (4.8-10.8)
[2025-03-17 07:25] LABS: Glucose, Whole Blood 103 mg/dL (60-115)
[2025-03-17 08:00] VITALS: BP 143/66; PULSE 84; RESP 16; TEMP 36.6; O2SAT 96
[2025-03-17] MEDS: Fluticasone/Vilanterol 200/25 BLST.W.DEV 1 PUFF INHALE (08:15)
[2025-03-17 08:16] VITALS: PULSE 72; RESP 18; O2SAT 100
[2025-03-17] MEDS: oxyCODONE HCl Immed Release 5 MG TABLET PO (09:29)
[2025-03-17] MEDS: Ferrous Sulfate 324 MG TABLET.DR PO (09:29)
[2025-03-17 11:32] LABS: Glucose, Whole Blood 184 mg/dL (60-115)
--- NOTE | 2025-03-17 13:08 | W.MHC.F2F ---
Service Date Service Date: 03/17/25 Encounter Date of encounter: 03/17/25 Reasons for Services Signs and symptoms assessed: urostomy Reason for care home: wound care Reason for physical therapy: home safety and mobility, therapeutic exercises, gait/transfer training, assess need for DME, ADL training and energy conservation Overseeing Care: Hilary Jimenez Homebound: Leaving the home is medically contraindicated at this time without the asist of a device and/or another person due th the listed conditions above and below. Reason homebound: immunosuppression / infection risk and weakness related to hospital stay Certification: Based on the above findings, I certify that this patient is confined to the home and needs intermittent care home care, physical therapy and/or speech therapy, or continues to need occupational therapy. The patient is under my care, and I have initiated the establishment of the plan of care. The patient will be followed by a physician who will periodically review the plan of care. Time Spent With Patient Time: Total time managing care of this patient today ____ minutes.
--- NOTE | 2025-03-17 13:09 | P.DS_ITS ---
DS: Providers Provider Date of Service: 03/17/25 Date of admission: 03/14/25 16:08 Date of discharge: 03/17/25 Primary care physician: Hilary Jimenez MD Consults: 03/12/25 18:26 Consult to Urology Routine Consulting Provider: [facility] Urology Services Reason for consultation: Hematuria from ileal loop urostomy 03/13/25 08:08 Consult to General Surgery Routine Consulting Provider: [facility] General Surgeons Reason for consultation: Bleeding from urostomy stoma; urology would like eval; currently NPO DS: Diagnosis Discharge Diagnosis (1) Hematuria: Status: Acute (2) Complication of urostomy: Status: Acute (3) Acute blood loss anemia: Status: Acute (4) Urologic bleed: Status: Acute DS: Summary Hospital Course Hospital Course: From the history and physical by the admitting hospitalist, BALWINDER Walton, 03/12/25: Pt is a 74-year-old male with a PMH significant for?asthma, dei-kssnxbs-lawyuifdn type 2 diabetes, HLD, HTN, and hx of bladder cancer s/p cystectomy and ileal loop urostomy who presents to the ED with?gross hematuria in ostomy bag. Pt was recently admitted to the hospital for a prolonged stay from 03/01-03/07 where he was admitted to hospital for sepsis secondary to UTI. Hospital stay complicated by gross hematuria wth clots and bleeding from edge of stoma. Pt was taken to the OR by Dr. Narayan found source of bleeding just inside stoma of his urostomy. Sutures were placed and hemostasis achieved. Pt was discharged from the hospital on Thursday, and reports did well up until this morning when he noticed he has ostomy bag had filled with blood with clots again. Pt reports he otherwise feels fine without any acute medical complaints. Denies any abdominal pain. No lightheadedness or dizziness. Denies shortness or breath or difficulty breathing. No chest pain/pressure, palpitations. In the ED pt was hypertensive up to 162/75, vitals otherwise stable and WNL. Labs were significant for H&H 7.5/23.5, similar to baseline; AST 58, alk-phos 332, and albumin 3.0, all similar to baseline. No significant electrolyte abnormalities. UA showing gross hematuria with urine blood and RBCs. Negative for UTI. EKG demonstrated normal sinus rhythm without evidence of significant ST elevations or depressions. Pt was treated in the ED with IVF and cefuroxime p.o.. ED provider contacted Urology who requested admission to medicine with Urology consult in the morning for possible procedure in the OR in the morning. Pt is admitted to the hospital for treatment and further evaluation of hematuria concerning for recurrent urostomy bleed. 74yo M with hx bladder CA s/p cystectomy + ileal loop urostomy, DM2, asthma, HLD, HTN presenting with hematuria/urostomy bleed and admitted to the hospitalist service with General Surgery and Urology consultation. Previou bleeding from inside stoma sutured by Urology 03/06. This time he was transfused 1u pRBCs, 1u platelets, and given TXA and taken to the OR by Dr Narayan from Urology 03/15 for urostomy revision. Judge was left in place in the urostomy and should be left in for 1 week. He completed cefuroxime for UTI diagnosed last admission while in the hospital. Abdominal imaging shows liver cirrhosis, likely SCHNEIDER and he should follow up with [facility] Gastroenterology in 1 month. He was discharged home with [facility] services for PT and ostomy cre. Time Attestation Discharge Coordination Time (in mins): 35 Quality: Safe Use of Opioids Does Pt have an Active Cancer Diagnosis on the Problem List?: Yes Opioid Measure Date for [facility] Report: 02/15/25 Opioid Measure Time for [facility] Report: 13:15 Quality: Stroke Does the patient have a stroke diagnosis?: No Physical Exam Vital Signs: Vital Signs: Last Vital Signs Temp 97.9 F 03/17/25 08:00 Pulse 72 03/17/25 08:16 Resp 18 03/17/25 08:16 BP 143/66 H 03/17/25 08:00 Pulse Ox 96 03/17/25 08:00 O2 Del Method Room Air 03/17/25 08:00 BMI result Body Mass Index 25.6 Gen: in no acute distress HEENT: sclera anicteric, moist mucus membranes Neck: supple Lungs: clear to auscultation bilaterally Heart: regular rate and rhythm, no murmurs Abd: soft, non-tender, non-distended, urostomy with clear urine and Judge in urostomy Ext: no edema Skin: warm/well-perfused Neuro: alert and oriented x3, no focal findings Psych: appropriate affect DS: Data Data Completed and Pending Completed studies during hospitalization [Text1]: Laboratory Results WBC 7.2 X10*3/uL (4.8-10.8) 03/17/25 06:16 RBC 2.82 X10*6/uL (4.60-5.80) L 03/17/25 06:16 Hgb 9.0 g/dl (14.0-18.0) L 03/17/25 06:16 Hct 26.8 % (42.0-52.0) L 03/17/25 06:16 MCV 95.0 fL (80.0-98.0) 03/17/25 06:16 MCH 31.9 pg (27.0-33.0) 03/17/25 06:16 MCHC 33.6 g/dl (31.0-36.0) 03/17/25 06:16 RDW 18.5 % (11.0-16.0) H 03/17/25 06:16 Plt Count 163 X10*3/uL (160-400) 03/17/25 06:16 MPV 10.4 fL (9.4-12.4) 03/17/25 06:16 Immature Gran % (Auto) 0.8 % (0.0-0.4) H 03/12/25 12:47 Neut % (Auto) 68.2 % (45-73) 03/12/25 12:47 Lymph % (Auto) 15.1 % (20-40) L 03/12/25 12:47 [place] % (Auto) 8.1 % (2-11) 03/12/25 12:47 Eos % (Auto) 7.1 % (0-4) H 03/12/25 12:47 Baso % (Auto) 0.7 % (0-2) 03/12/25 12:47 Lymph # (Auto) 0.9 X10*3/uL (1.2-4.9) L 03/12/25 12:47 [place] # (Auto) 0.5 X10*3/uL (0.1-1.2) 03/12/25 12:47 Eos # (Auto) 0.4 X10*3/uL (0.0-0.4) 03/12/25 12:47 Baso # (Auto) 0.0 X10*3/uL (0.0-0.2) 03/12/25 12:47 Abs Immat Gran (auto) 0.05 X10*3/uL (0.00-0.03) H 03/12/25 12:47 Absolute Neuts (auto) 4.1 x10*3/uL (2.0-8.3) 03/12/25 12:47 Absolute Nucleated RBC 0.000 X10*3/uL (0.0-0.012) 03/17/25 06:16 Nucleated RBC % (auto) 0.0 /100WBC (0.0-0.2) 03/17/25 06:16 PT 13.0 SEC (10.9-12.4) H 03/12/25 12:47 INR 1.1 (0.9-1.1) 03/12/25 12:47 APTT 37.0 SEC (26.7-34.1) H 03/12/25 12:47 Sodium 135 mmol/L (135-145) 03/16/25 05:39 Potassium 4.8 mmol/L (3.3-5.1) 03/16/25 05:39 Chloride 105 mmol/L (96-108) 03/16/25 05:39 Carbon Dioxide 24 mmol/L (22-29) 03/16/25 05:39 Anion Gap 11 (12-20) L 03/16/25 05:39 BUN 14 mg/dL (9-16) 03/16/25 05:39 Creatinine 1.11 mg/dL (0.5-1.4) 03/16/25 05:39 Estim Creat Clear Calc 43.7 03/16/25 05:39 Estimated GFR > 60 03/16/25 05:39 POC Glucose 184 mg/dL (60-115) H 03/17/25 11:24 Random Glucose 113 mg/dL (60-115) 03/16/25 05:39 Calcium 8.1 mg/dL (8.4-10.2) L 03/16/25 05:39 Magnesium 1.8 mg/dL (1.6-2.6) 03/12/25 12:47 Total Bilirubin 0.6 mg/dL (0.0-1.0) 03/12/25 12:47 AST 58 U/L (5-37) H 03/12/25 12:47 ALT 35 U/L (0-40) 03/12/25 12:47 Alkaline Phosphatase 332 U/L (39-117) H 03/12/25 12:47 Total Protein 6.5 g/dL (6.5-8.0) 03/12/25 12:47 Albumin 3.0 g/dL (3.5-5.0) L 03/12/25 12:47 Vitamin B12 890 pg/mL (200-900) 03/14/25 05:28 Folate 14.4 ng/mL (> or = 4.0) 03/14/25 05:28 Urine Color RED 03/12/25 14:12 Urine Appearance Turbid 03/12/25 14:12 Urine pH 8.0 (5.0-9.0) 03/12/25 14:12 Ur Specific [place] 1.020 (1.005-1.025) 03/12/25 14:12 Urine Protein 300 (3+) mg/dL (Neg-Trace) H 03/12/25 14:12 Urine Glucose (UA) Negative mg/dL (Negative) 03/12/25 14:12 Urine Ketones Negative mg/dL (Negative) 03/12/25 14:12 Urine Blood Large (3+) (Negative) H 03/12/25 14:12 Urine Nitrite Negative (Negative) 03/12/25 14:12 Ur Leukocyte Esterase Trace (Negative) H 03/12/25 14:12 Urine RBC >20 /HPF (0-2) H 03/12/25 14:12 Urine WBC 0-5 /HPF (0-5) 03/12/25 14:12 Ur Squamous Epith Cells 0-2 /HPF (0-2) 03/12/25 14:12 Urine Bacteria Trace (None Seen) 03/12/25 14:12 Hyaline Casts 0-2 /LPF (0-2) 03/12/25 14:12 Blood Type A Positive 03/15/25 18:00 Antibody Screen NEGATIVE 03/15/25 18:00 Crossmatch See Detail 03/12/25 14:54 Discharge Plan Discharge Anticipated Discharge Date/Time: 03/17/25 13:09 Patient Disposition: Home Health Service Discharge Diagnosis: bleeding from urostomy cirrhosis Referrals: Hilary Jimenez MD [Primary Care Provider, Internal Medicine] - 1 Week Mauro Narayan MD [Physician, Urology] - 1 Week [facility] Gastro[facility]ology Services [Provider Group, Gastroenterology] - 1 Month Discharge Medications: Continued (DME) MicroHesive Stoma Paste Paste See Rx Instructions .Route Qty: 60 5RF Rx Instructions: Securi-T stoma paste (DME) Stomahesive Skin Barrier 4 X 4 wafer See Rx Instructions .Route Qty: 30 1RF Rx Instructions: Securi-T [place] [id number] - change every 3 days (DME) Assura Urostomy Pouch 10 misc See Rx Instructions .Route Qty: 10 4RF Rx Instructions: Securi-T 45mm urostomy bag [id number] albuterol sulfate 90 mcg/actuation HFA aerosol inhaler 2 puff PO QID PRN (Reason: Shortness Of Breath) budesonide-formoterol [Symbicort] 160-4.5 mcg/actuation HFA aerosol inhaler 2 puff inhalation Q12H Qty: 10.2 0RF metformin 500 mg tablet 500 mg PO BID atorvastatin 20 mg tablet 20 mg PO DAILY telmisartan 20 mg tablet 20 mg PO DAILY Januvia 50 mg tablet 50 mg PO DAILY ferrous sulfate [iron] 325 mg (65 mg iron) Tablet 325 mg PO DAILY vitamin B complex Tablet 1 tab PO DAILY docusate sodium [Colace] 100 mg capsule 100 mg PO DAILY PRN (Reason: constipation) Qty: 30 0RF bisacodyl [Dulcolax (bisacodyl)] 5 mg tablet,delayed release (DR/EC) 5 mg PO BEDTIME PRN (Reason: constipation) 30 Days Qty: 30 0RF oxycodone 5 mg Tablet 5 mg PO Q6H PRN (Reason: Pain, Severe (Pain Scale 7-10)) Qty: 20 0RF Rx Instructions: Partial Fill upon patient request. montelukast 10 mg tablet 10 mg PO DAILY (DME) FreeStyle Lite Strips Strip See Rx Instructions Not Applicable DAILY Qty: 10 Rx Instructions: As directed (DME) lancets [FreeStyle Lancets] 28 gauge misc See Rx Instructions topical BID Qty: 100 Rx Instructions: As directed folic acid 1 mg tablet 1 mg PO DAILY Discontinued cefuroxime axetil 500 mg Tablet 500 mg PO Q12H Qty: 18 0RF Discharge Orders: Discharge Order (Routine); Ordered 03/17/25 Ordered By: Geoffrey Brown Diet: Diabetic diet Activity on Discharge: As tolerated Stand Alone Forms: Patient Portal Discharge page Print Language: [place] Care Plan Goals: urostomy management Health Concerns: bleeding from urostomy cirrhosis Plan of Treatment: Judge in urostomy for next week; follow up with Dr Narayan from [facility] Urology in 1 week Abdominal imaging shows cirrhosis of liver, likely SCHNEIDER. Please follow up with [facility] Gastroenterology in 1 month for further workup. Please follow up with your primary care doctor within 1 week. Return to the hospital if you experience recurrent or worsening symptoms. Assessment: See Discharge Summary.
--- NOTE | 2025-03-17 13:50 | MHC.CM.PN ---
PT WILL DC HOME TODAY WITH [facility] SERVICES REFERRAL SENT TO [facility] PER [facility] [employer] THEY HAVE RESPONDED THAT PT WAS REVIEWED AND AUTHORIZED, THEY WILL SET UP [facility] SERVICES FAMILY WILL TRANSPORT
[2025-03-17 16:00] VITALS: BP 143/63; PULSE 67; RESP 14; TEMP 36.1; O2SAT 100
[2025-03-17 16:38] LABS: Glucose, Whole Blood 166 mg/dL (60-115)
[2025-03-17 17:44] VITALS: BP 169/75; PULSE 69; RESP 16; TEMP 36.2; O2SAT 100
== END 2025-03-17 18:00 | disposition home health service (06) | DRG 982 ==
LOC: HO.ED 16:28 → HO.EDOVER 16:58 → HO.S3 17:06 → HO.OBSV 03-15 18:29 → HO.S3 03-15 18:52
PROVIDERS: Urology; Admitting Provider Student in an Organized Health Care Education/Training Program; Emergency Provider Emergency Medicine; PCP Internal Medicine; Visit Provider Family Medicine
PROC: 0DQ80ZZ Repair Small Intestine, Open Approach (ICD-10-PCS; CPT 55060; principal; 2025-03-15 16:00)
DX: N99.520 Hemorrhage of incontinent external stoma of urinary tract (principal); D62 Acute posthemorrhagic anemia; N39.0 Urinary tract infection, site not specified; R31.0 Gross hematuria; E11.9 Type 2 diabetes mellitus without complications; I10 Essential (primary) hypertension; K74.69 Other cirrhosis of liver; J45.20 Mild intermittent asthma, uncomplicated; K75.81 Nonalcoholic steatohepatitis (NASH); Z85.51 Personal history of malignant neoplasm of bladder; Z79.84 Long term (current) use of oral hypoglycemic drugs; Z79.899 Other long term (current) drug therapy
CPT/HCPCS: 36415; 80048; 80053; 81001; 82607; 82746; 82947; 83735; 85014; 85018; 85025; 85027; 85610; 85730; 86850; 86900; 86901; 86923; 93005; 94640; 99285; J0665; J0690; J2003; J2405; J2704; J3010; J7120; P9016; P9073

== ENCOUNTER → 2025-03-12 14:47 | Outpatient (BNV) | payer OTHER, SELFPAY | PROVIDERS: Admitting Provider Student in an Organized Health Care Education/Training Program; Emergency Provider Emergency Medicine; PCP Internal Medicine; Visit Provider Internal Medicine | DX: R94.31 Abnormal electrocardiogram [ECG] [EKG] (principal); R31.9 Hematuria, unspecified | CPT/HCPCS: 93010 ==

== ENCOUNTER → 2025-03-12 16:52 | Outpatient (BNV) | payer MEDICARE, MEDICAID, SELFPAY | PROVIDERS: Admitting Provider Student in an Organized Health Care Education/Training Program; Emergency Provider Emergency Medicine; PCP Internal Medicine; Visit Provider Urology | DX: R31.9 Hematuria, unspecified (principal); Z85.51 Personal history of malignant neoplasm of bladder | CPT/HCPCS: 99222 ==

== ENCOUNTER → 2025-03-12 16:52 | Outpatient (BNV) | payer MEDICARE, MEDICAID, SELFPAY | PROVIDERS: Admitting Provider Student in an Organized Health Care Education/Training Program; Emergency Provider Emergency Medicine; PCP Internal Medicine; Visit Provider Student in an Organized Health Care Education/Training Program | DX: R31.9 Hematuria, unspecified (principal); N99.528 Other complication of incontinent external stoma of urinary tract; D62 Acute posthemorrhagic anemia; N39.8 Other specified disorders of urinary system | CPT/HCPCS: 99222; 99232; 99239; G0180 ==

== ENCOUNTER 2025-03-20 22:45 | Inpatient (IN) | payer OTHER, SELFPAY ==
--- NOTE | ~2025-03-20 | XR_ITS ---
EXAMINATION: XR ABDOMEN KUB CLINICAL INDICATION: Bloating, distention COMPARISON: Correlated to CT dated March 21, 2025. TECHNIQUE: AP view of the abdomen. FINDINGS: There is a gas filled distended large intestine. No gross pneumatosis intestinalis. No air-fluid levels. Vascular clips in the periphery of the lower pelvis. There is a radiopaque structure in the right lower abdomen and likely due to the percutaneous ileostomy. There is a focal calcification at the left upper abdomen near the fundus of the stomach. 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 Electronically signed by: Farhad Johnson MD 03/23/2025 09:57 AM EDT
--- NOTE | ~2025-03-20 | CT_ITS ---
CLINICAL HISTORY: bilateral flank pain, recent urostomy revision CT abdomen and pelvis without contrast Comparison: CT/SR - CT ABDOMEN PELVIS WITHOUT IV CONTRAST - 03/01/25 09:44 EDT Findings: Trace bilateral pleural effusions, slightly larger on the left. There is a patchy consolidation in the left lower lobe centered on image 6:3. Mild scattered atelectasis at the lung bases. Cirrhotic appearing liver. Main portal vein and spleen normal size. Cholelithiasis at the gallbladder neck. No inflammatory change or bile duct dilatation. Atrophic right kidney with moderate right hydroureteronephrosis. Normal-sized left kidney with moderate left hydroureteronephrosis. Abdominal solid organs otherwise unremarkable. Cystectomy with urinary diversion. The ileal conduit is moderately distended with urine and there is a Judge catheter within the conduit at the ostomy site. No bowel obstruction, pneumoperitoneum, or pneumatosis. There is generalized colonic wall thickening. Most evident at the hepatic flexure. Prostatectomy. Small amount of perihepatic ascites. The bones are intact. IMPRESSION: 1. Distended ileal conduit and bilateral hydroureteronephrosis. Consider dysfunction of the Judge catheter located within the conduit at the ostomy site. 2. Patchy opacity in the left lower lobe. This could be aspiration or consolidation. Follow-up to clearing would be helpful. 3. Small amount of ascites and effusions of uncertain etiology. This could be related to the urinary process, third-spacing of fluid due to volume overload, or sequela of portal hypertension. This document has been electronically signed by: Joe He MD on 03/21/2025 03:20:22
[2025-03-20 23:09] VITALS: BP 134/62; BP 156/77; PULSE 110; PULSE 93; RESP 18; TEMP 39.6; O2SAT 100; O2SAT 96; BMI 24.8
[2025-03-20 23:18] LABS: Hematocrit 28.5 % (42.0-52.0); Hemoglobin 9.3 g/dl (14.0-18.0); Mean Corpuscular HGB Conc 32.6 g/dl (31.0-36.0); Mean Corpuscular Hemoglobin 31.1 pg (27.0-33.0); Mean Corpuscular Volume 95.3 fL (80.0-98.0); NRBC Abs Auto 0.000 X10*3/uL (0.0-0.012); NRBC Pct Auto 0.0 /100WBC (0.0-0.2); Platelet Count 125 X10*3/uL (160-400); Red Blood Count 2.99 X10*6/uL (4.60-5.80); White Blood Count 6.0 X10*3/uL (4.8-10.8)
--- NOTE | 2025-03-20 23:24 | PC.NURSE ---
pt arrived via ambulance for reports of fever and chills at home X2 days. Pt reports he was present at this ED a week ago for blood in urostomy and cirrhosis. Finished a course of abx. Pt also reporting Lower back pain 05/19. Temp 103.3 Orally and suspected urinary infection. discussed with and sepsis alert called, meat process worker aware. MD in to assess pt. IV #20 placed nd R-ac, labs, blood cultures, lactic and urine sent to lab. awaiting orders from .
--- NOTE | 2025-03-20 23:25 | MHC.EDSEPSIS ---
HPI - Sepsis General Chief Complaint: Fever Stated Complaint: Fever, chills, blood in colostomy bag Time Seen by Provider: 03/20/25 23:13 Source: patient, family and old records reviewed Mode of arrival: ambulatory Limitations: language barrier History of Present Illness ED Provider: Dr. Rosa Vela HPI Narrative: 74-year-old male with history of asthma, qgp-nthsyna-klozpmqzr type 2 diabetes, HLD, HTN, and hx of bladder cancer s/p cystectomy and ileal loop urostomy, presenting to the emergency department with 2 days of fever. Patient was originally just discharged from this hospital 3 days ago with complications from his bleeding urostomy that required blood transfusion and revision in the OR of the urostomy. He had a Judge catheter placed into the urostomy that should be left in for about a week (taken out around 06/22/2025) completed his antibiotics during admission. Patient describes pain in his lower back that has been ongoing for the last 2 days. Describes associated fevers as high as 103.3?. Has been using Tylenol for fever around the clock. No reported vomiting. Bowel movements are decreased and urostomy output is also decreased. There is some pink tinged urine in the bag at this time. No other bleeding. No chest pain, difficulty breathing or cough. Related Data Home Medications ?Medication ?Instructions ?Recorded ?Confirmed blood sugar diagnostic (FreeStyle #10 ea 04/18/21 01/05/24 Lite Strips) montelukast 10 mg tablet 10 mg PO DAILY 04/18/21 03/12/25 lancets 28 gauge (FreeStyle #100 ea 06/24/21 01/05/24 Lancets) folic acid 1 mg tablet 1 mg PO DAILY 12/10/21 03/12/25 albuterol sulfate 90 mcg/actuation 2 puff PO QID PRN Shortness Of 02/08/22 03/12/25 aerosol inhaler Breath atorvastatin 20 mg tablet 20 mg PO DAILY 03/01/25 03/12/25 ferrous sulfate 325 mg (65 mg 325 mg PO DAILY 03/01/25 03/12/25 iron) tablet (iron) metformin 500 mg tablet 500 mg PO BID 03/01/25 03/12/25 sitagliptin phosphate 50 mg tablet 50 mg PO DAILY 03/01/25 03/12/25 (Januvia) telmisartan 20 mg tablet 20 mg PO DAILY 03/01/25 03/12/25 vitamin B complex 1 tab PO DAILY 03/01/25 03/12/25 Previous Rx's ?Medication ?Instructions ?Recorded budesonide-formoterol HFA 160 2 puff inhalation Q12H #10.2 grams 01/26/23 mcg-4.5 mcg/actuation aerosol inhaler (Symbicort) ostomy supplies (MicroHesive Stoma #60 grams 01/14/24 Paste) ostomy supplies 4 X 4 wafer #30 wafers 01/14/24 (Stomahesive Skin Barrier) urinary bag 10 (Assura Urostomy #10 ea 01/14/24 Pouch) bisacodyl 5 mg tablet,delayed 5 mg PO BEDTIME PRN constipation 03/04/25 release (Dulcolax (bisacodyl)) 30 days #30 tabs docusate sodium 100 mg capsule 100 mg PO DAILY PRN constipation 03/04/25 (Colace) #30 caps oxycodone 5 mg tablet 5 mg PO Q6H PRN Pain, Severe (Pain 03/07/25 Scale 7-10) #20 tabs Allergies Allergy/AdvReac Type Severity Reaction Status Date / Time aspirin Allergy Unknown Verified 03/20/25 23:11 Beta-Blockers AdvReac Unknown Verified 03/20/25 23:11 (Beta-Adrenergic Bloc ibuprofen AdvReac Unknown Verified 03/20/25 23:11 Review of Systems Review of Systems as per HPI, full review of systems performed and negative but for the above mentioned pertinent positives and negatives. Physical Exam Exam Exam: GENERAL: Ill-Appearing, appears uncomfortable. SKIN: Normal skin color for ethnicity, warm, dry, no rashes noted. HEENT: Normocephalic, atraumatic, no stridor, dry mucous membranes, dentition intact, EOMI, PERRLA. NECK: Soft, supple, full ROM, midline structures nontender, no step-offs, no deformities, no lymphadenopathy. CHEST: Heart regular rhythm, systolic ejection murmur best heard at the right upper sternal border, symmetric chest rise and fall. PULMONARY: Clear to auscultation bilaterally, diminished at the bases, no labored breathing, no wheezes/rhales/rhonchi. ABDOMINAL: Soft, nondistended, nontender, quiet bowel sounds in all quadrants, urostomy in place with pink urine drainage. : Deferred. MUSCULOSKELETAL: Normal tone, full range of motion, no deformities, no peripheral edema. NEURO: Alert and oriented x3, CN II through XII intact, equal strength and sensation bilateral upper and lower extremities, no focal neurologic deficits. PSYCHIATRIC: Flat affect, fluid speech, good eye contact and appropriate demeanor. Vital Signs: Last Vital Signs Temp 99.5 F 03/21/25 03:10 Pulse 92 03/21/25 03:10 Resp 24 H 03/21/25 03:10 BP 117/55 L 03/21/25 03:10 Pulse Ox 98 03/21/25 03:10 O2 Del Method Room Air 03/21/25 03:10 BMI result Body Mass Index 24.8 Course Reevaluation(s) Reevaluation #1: Patient with continued fever. Added on a g of Tylenol IV. He has been covered with antibiotics. Blood pressure remained stable. Awaiting CT results. Time: 02:22 Reevaluation #2: Patient feeling improved after morphine. CT shows evidence of hydroureteronephrosis, concern for potential blockage of the urostomy Judge catheter. He is still having urine output though. Plan to admit to hospitalist for further care and evaluation of UTI, sepsis, LUIS. Patient understands and agrees with plan for admission. Admitted in guarded condition. Time: 03:15 Critical Care Time Critical Care Time Critical Care Time: Yes Total Critical Care Time: 37 Attestation: CRITICAL CARE TIME: 37 minutes of critical care time was spent in direct patient care at the bedside or in the immediate area with this patient. Critical care was necessary to treat or prevent imminent or life-threatening deterioration of the following conditions sepsis, LUIS due to UTI, partially blocked urostomy. This patient is high risk for decompensation and/or . This time was spent assessing and managing the patient, interpreting labs and imaging, coordinating care with other medical providers, gathering history from either the patient, their representatives, EMS or chart review, and discussing management with admitting team. Discharge Plan Discharge Clinical Impression: Acute UTI, Sepsis, LUIS (acute kidney injury), Complication of urostomy Patient Disposition: Admitted As Inpatient Sepsis Event Note Evaluation Sepsis screening result: Possible Sepsis Risk Current stage of sepsis: sepsis Reason for ruling out sepsis: Patient presents with complaints of fever. Differential diagnosis is incredibly broad but SBI, meningitis, sepsis, serious skin infection, pneumonia, or other emergent etiologies certainly considered. Less emergent diagnoses such as viral infection also considered. This patient is pale but nontoxic appearing. Most likely with a source given his recent history of urostomy revision. Possible source: genitourinary Focused Exam Vital signs: Vital Signs Temp Pulse Resp BP Pulse Ox O2 Del Method 03/21/25 03:10 99.5 F 92 24 H 117/55 L 98 Room Air 03/21/25 02:14 101.5 F H 96 30 H 138/62 99 Room Air 03/21/25 01:59 99 30 H 134/62 96 Room Air 03/21/25 01:37 100.9 F H 106 H 32 H 144/63 H 96 03/21/25 00:57 101.9 F H 96 26 H 138/62 98 Room Air 03/20/25 23:09 103.3 F H 93 18 134/62 96 Room Air Respiratory exam: Present CTAB; Absent accessory muscle use, decreased breath sounds or respiratory distress Cardiovascular exam: RRR and murmur (Systolic ejection murmur at the right upper sternal border) Capillary refill: > 2 Seconds Peripheral pulse strength: 2+ Slightly Diminished Peripheral pulse location: Radial Skin exam: pale Date exam was performed: 03/21/25 Time exam was performed: 05:33 [facility] Past Medical History Attestation statement: The following information was validated with the patient. [facility] Narrative: asthma, fgy-wdkibmm-ppcguulel type 2 diabetes, HLD, HTN, and hx of bladder cancer s/p cystectomy and ileal loop urostomy Source: old records reviewed Medical History Cirrhosis of liver Complication of urostomy HTN (hypertension) Acute hyponatremia Hydronephrosis Bladder cancer Asthma Diabetes Bladder cancer Incomplete emptying of bladder due to benign prostatic hyperplasia Complicated urinary tract infection Surgical History History of surgery History of ileal conduit Social History Social History Household Members: Spouse and Family Housing: House Are you a primary residential care officer to a significant other at home: No Do you presently have visiting nurse or other home services: Yes (kassy) Alcohol intake: never Comment: bedside Patient Tobacco Use Status: Never used Tobacco Advance Directives: No Advance Directives Information Provided: Yes Advance Directives Date on File: 03/12/25 service: No Current occupational status: retired
[2025-03-20 23:27] LABS: Alanine Aminotransferase 21 U/L (0-40); Albumin Level 3.2 g/dL (3.5-5.0); Alkaline Phosphatase 309 U/L (39-117); Anion Gap 16 (12-20); Aspartate Amino Transferase 47 U/L (5-37); Blood Urea Nitrogen 21 mg/dL (9-16); Calcium 8.2 mg/dL (8.4-10.2); Carbon Dioxide 18 mmol/L (22-29); Chloride 103 mmol/L (96-108); Creatinine Clr Calc Pharmacy 32.5; Estimated Glomerular Filt Rate 46; Magnesium 1.6 mg/dL (1.6-2.6); Potassium 5.1 mmol/L (3.3-5.1); Sodium 132 mmol/L (135-145); Total Protein 6.9 g/dL (6.5-8.0)
[2025-03-20 23:29] LABS: Appearance Urine Turbid; Glucose Urine UA Negative (Negative); PH 7.0 (5.0-9.0); Specific Gravity - Urine 1.015 (1.005-1.025); UMIC TRIGGER UACC YES
[2025-03-20 23:41] LABS: UACC Culture Trigger YES
[2025-03-20] MEDS: cefEPime HCl/D5W 2 GM/50 ML PIGGYBACK IV (23:41)
[2025-03-21] VITALS (10 sets, daily range): BP systolic 102–144; BP diastolic 52–63; PULSE 67–106; RESP 16–32; TEMP 36.3–38.8; O2SAT 96–99; BMI 27.1
--- NOTE | 2025-03-21 | ECG_ITS ---
Test Reason : hyperkalemia Blood Pressure : */* mmHG Vent. Rate : 119 BPM Atrial Rate : 119 BPM P-R Int : 172 ms QRS Dur : 100 ms QT Int : 316 ms P-R-T Axes : * -58 94 degrees QTcB Int : 444 ms Sinus tachycardia Left axis deviation Abnormal QRS-T angle, consider primary T wave abnormality Abnormal ECG When compared with ECG of 12-Mar-2025 15:00, Vent. rate has increased by 43 bpm T wave amplitude has increased in Inferior leads T wave inversion less evident in Lateral leads Referred By: Rosalva Dalal Electronically Signed By: Marv Aguiar
[2025-03-21 01:11] LABS: Reflex Lactate? Lactic Acid Added
--- NOTE | 2025-03-21 01:43 | MHC.EDTECH ---
second lactic delayed due to pt being difficult stick.
--- NOTE | 2025-03-21 02:05 | PC.NURSE ---
pt fluids complete, Vitals stable at this time, pt going to CT.
[2025-03-21 02:16] LABS: ~Lactic Acid-LAB USE ONLY 3.7 mmol/L (0.5-2.0)
[2025-03-21 03:49] LABS: Reflex Lactate? 2 Y
[2025-03-21 04:37] LABS: ~Lactic Acid-LAB USE ONLY 3.1 mmol/L (0.5-2.0)
--- OUTSIDE RECORDS SUMMARY | 2025-03-21 05:07 | XMS_ITS | Patient Health Record ---
Author Organization [facility] Address [address] [place] [address] Care Team Providers Care [employer] Name Role Phone Hilary Boss Primary Care Provider Unavailab Joe Hardy Jr Unavailable [phone] Allergies Allergen (clinical drug ingredient) Drug/Non Drug [...] Provider Speciality Internal M edicine Referred Organization [facility] Referred Provider Joe Echavarria Jr Referred Address [address],[place], [place],[address], Referred Provider Specialty Gastroentero logy General Notes Brooklyn Barkley 2024 10:14:44 AM > REQUESTED [facility] REFEFFAL FROM DR BOSS'S OFFICE FOR VISIT WITH DR ECHAVARRIA ON 02-15-25, Brooklyn Barkley 02/15/2025 11:39:50 AM >no referral required since patient is in the same [place] of care Referral Priority Routine Medications Medication [...] Risk Notes Problem Oesophageal varices without bleeding (16439091) Secondary esophageal varices without bleeding (I85.10) Active confirmed Problem Portal hypertension (45693063) Portal hypertension (K76.6) Active confirmed Problem [id number] Liver mass (R16.0) Active confirmed Problem 095213314 Liver lesion (K76.9) Active confirmed Problem [id number] Abnormal CT scan, liver (R93.2) Active confirmed Problem 01205170 Cirrhosis of liver without ascites, unspecified hepatic cirrhosis type (K74.60) Active confirmed Vital Signs Temperature 97.7 degrees Fahrenheit 02/15/2025 Blood pressure diastolic 01 mm Hg 02/15/2025 Height 62 in 02/15/2025 Blood pressure systolic 001 mm Hg 02/15/2025 Weight 120 lbs 02/15/2025 BMI 21.95 kg/m2 02/15/2025 Encounters Encounter Location Date Provider Diagnosis [facility] [address] [place] [address] 05/12/2024 Joe Echavarria Jr Liver lesion K76.9 and Cirrhosis of liver without ascites, unspecified hepatic cirrhosis type K74.60 [facility] [address] [place] [address] 02/15/2025 Joe Echavarria Jr Abnormal findings in stool R19.5 [facility] [address] [place] [address] 04/27/2024 Joe Echavarria Jr Liver mass R16.0 [facility] [address] [place] [address] 12/26/2024 Joe Echavarria Jr [facility] [address] [place] [address] 02/28/2025 Joe Echavarria Jr [facility] [address] [place] [address] 02/28/2025 Joe Reynaord Assessments Encounter Date Diagnosis (ICD Code) Assessment Notes Treatment Notes Treatment Clinical Notes Section Notes 05/12/2024 Liver lesion (ICD-10 - K76.9) Liver disease - resources material was printed. Please obtain the laboratory testing and MRI imaging we discussed today while you are in [facility]. We discussed hepatic cirrhosis today. We discussed [...] Provider Name:Joe estrada Jr, 04/04/2025 11:10:00 AM, [address] [place] [address] , [place], [place], [id number], Insurance Providers Payer Name Payer Address Payer Phone Subscriber Number Group Number Insured Name Patient Relationship to Insured Coverage Start Date Coverage End Date [facility] [address] [place] [phone] [id number] Alexia Agosto Self - patient is the insured [place] OF [place] [address] [place] [address] [id number] Alexia Agosto Self - patient is the insured Medical (General) History Medical History History ICD Code diabetes asthma Hypertension Bladder cancer Cirrhosis, likely secondary to fatty lonnie er, compensated Surgical History Surgery Date(Month/Year) bladder cancer Radical cystectomy, ileal conduit Hospitalization History Reason Date(Month/Year)
--- NOTE | 2025-03-21 06:13 | PM.IMHP ---
History of Present Illness Date of Service: 03/21/25 Attending physician on admission: Devin Coleman Chief Complaint: fever, back pain Patient is a 74-year-old male with a past medical history significant for mild intermittent asthma, type 2 diabetes, HLD, HTN, history bladder cancer s/p cystectomy and ileal loop urostomy, with recent admission for urostomy bleed requiring blood transfusion and new diagnosis of liver cirrhosis ?SCHNEIDER, discharged 03/17/25, who presented to the ED due to 2 days of low back pain with fever up to 103.3 and decreased output in his urostomy bag/constipation. His last bowel movement was yesterday however he reports it was minimal and he still feels constipated. He has had pink tinged urine in his urostomy bag with significantly decreased output. Denies chest pain, shortness of breath, abdominal pain, cough or URI symptoms. Review of Systems Constitutional: Constitutional: Denies chills, Denies fatigue, Reports fever(s) and Denies headache(s) Eyes: Eyes: Denies change in vision ENT: Denies headache(s), Denies nasal congestion and Denies sore throat Cardiovascular: Cardiovascular: Denies chest pain, Denies rapid heart rate, Denies leg edema, Denies lightheadedness and Denies dyspnea Respiratory: Respiratory: Denies chest congestion, Denies cough, Denies dyspnea and Denies wheezing Gastrointestinal: Gastrointestinal: Denies abdominal pain, Reports constipation, Denies diarrhea, Reports nausea and Denies vomiting Genitourinary: Genitourinary: Reports as per HPI Musculoskeletal: Musculoskeletal: Reports back pain Integumentary/Breasts: Skin/Breast: Denies rash Neurologic: Denies confusion and Denies headache(s) Psychiatric: Psychiatric: Denies confusion Endocrine: Endocrine: Denies fatigue Hematologic/Lymphatic: Hematologic/Lymphatic: Denies easy bleeding and Denies easy bruising Allergic/Immunologic: Allergic/Immunologic: Denies wheezing PMFSH Medical History Cirrhosis of liver Complication of urostomy HTN (hypertension) Acute hyponatremia Hydronephrosis Bladder cancer Asthma Diabetes Bladder cancer Incomplete emptying of bladder due to benign prostatic hyperplasia Complicated urinary tract infection Surgical History History of surgery History of ileal conduit Social History Household Members: Spouse and Family Housing: House Are you a primary gericare aide to a significant other at home: No Do you presently have visiting nurse or other home services: Yes (kassy) Alcohol intake: never Comment: bedside Patient Tobacco Use Status: Never used Tobacco Advance Directives: No Advance Directives Information Provided: Yes Advance Directives Date on File: 03/12/25 service: No Current occupational status: retired Meds Allergies Allergy/AdvReac Type Severity Reaction Status Date / Time aspirin Allergy Unknown Verified 03/20/25 23:11 Beta-Blockers AdvReac Unknown Verified 03/20/25 23:11 (Beta-Adrenergic Bloc ibuprofen AdvReac Unknown Verified 03/20/25 23:11 Active Medications: Current Medications Acetaminophen (Acetaminophen 325 Mg Tablet) 975 mg PO Q6H PRN PRN Reason: Pain, Mild 1-3,fever,headache Calcium Carbonate (Calcium Carbonate 750 Mg Tab.Chew) 750 mg PO Q4H PRN PRN Reason: Heartburn Magnesium Hydroxide (Milk Of Magnesia 30 Ml Oral.Susp) 30 ml PO DAILY PRN PRN Reason: Constipation Melatonin (Melatonin 3 Mg Tablet) 6 mg PO BEDTIME PRN PRN Reason: Insomnia Ondansetron HCl (Ondansetron Hcl 4 Mg/2 Ml Vial) 4 mg IVPUSH Q8H PRN PRN Reason: Nausea and Vomiting Oxycodone HCl (Oxycodone Hcl Immed Release 5 Mg Tablet) 5 mg PO Q6H PRN PRN Reason: Pain, Severe (Pain Scale 7-10) Pharmacy Consult (Consult Rx Vancomycin Dosing) 1 each MISCELLANE DAILY PRN PRN Reason: Consult order Sodium Chloride (0.9 % Sodium Chloride Flush 3 Ml Syringe) 3 ml IVFLUSH QSHIFT STEVEN Tramadol HCl (Tramadol Hcl 50 Mg Tablet) 50 mg PO Q6H PRN PRN Reason: Pain, Moderate(Pain Scale 4-6) Home Medications ?Medication ?Instructions ?Recorded ?Confirmed ?Last Taken ?Type blood sugar diagnostic (FreeStyle #10 ea 04/18/21 01/05/24 Unknown History Lite Strips) montelukast 10 mg tablet 10 mg PO DAILY 04/18/21 03/12/25 02/28/25 History lancets 28 gauge (FreeStyle #100 ea 06/24/21 01/05/24 Unknown History Lancets) folic acid 1 mg tablet 1 mg PO DAILY 12/10/21 03/12/25 02/28/25 History albuterol sulfate 90 mcg/actuation 2 puff PO QID PRN Shortness Of 02/08/22 03/12/25 Unknown History aerosol inhaler Breath atorvastatin 20 mg tablet 20 mg PO DAILY 03/01/25 03/12/25 02/28/25 History ferrous sulfate 325 mg (65 mg 325 mg PO DAILY 03/01/25 03/12/25 02/28/25 History iron) tablet (iron) metformin 500 mg tablet 500 mg PO BID 03/01/25 03/12/25 02/28/25 History sitagliptin phosphate 50 mg tablet 50 mg PO DAILY 03/01/25 03/12/25 02/28/25 History (Januvia) telmisartan 20 mg tablet 20 mg PO DAILY 03/01/25 03/12/25 02/28/25 History vitamin B complex 1 tab PO DAILY 03/01/25 03/12/25 02/28/25 History Physical Exam Vital Signs and Narrative: Vital Signs: Last Vital Signs Temp 98.6 F 03/21/25 05:52 Pulse 86 03/21/25 05:52 Resp 20 03/21/25 05:52 BP 103/54 L 03/21/25 05:52 Pulse Ox 98 03/21/25 05:52 O2 Del Method Room Air 03/21/25 05:52 BMI result Body Mass Index 24.8 General: AOx3, no acute distress Resp: CTA bilaterally CVS: S1, S2, RRR GI/: +BS, NT, no distention. pink tinged urine in urostomy bag with minimal output. Skin: Warm, dry Neuro: Cranial nerves II-XII grossly intact bilaterally. Motor grossly intact bilaterally Extremities: No LE edema Psych: Appropriate affect Const: General: No confusion Orientation/consciousness: No confusion Neuro: General: No confusion Results Labs 03/20/25 23:07 03/20/25 23:07 Labs: Laboratory Results - last 24 hr 03/20/25 03/20/25 03/21/25 23:07 23:21 01:46 MCV 95.3 MCH 31.1 MCHC 32.6 RDW 16.8 H Plt Count 125 L MPV 10.4 Absolute Nucleated RBC 0.000 Nucleated RBC % (auto) 0.0 Anion Gap 16 Estim Creat Clear Calc 32.5 Estimated GFR 46 Random Glucose 198 H Lactic Acid 3.5 H* Lactic Acid F/U @ 2Hr 3.7 H* Lactic Acid F/U @ 4Hr Calcium 8.2 L Magnesium 1.6 Total Bilirubin 1.1 H AST 47 H ALT 21 Alkaline Phosphatase 309 H Total Protein 6.9 Albumin 3.2 L Urine Color [place] A Urine Appearance Turbid Urine pH 7.0 Ur Specific [place] 1.015 Urine Protein 300 (3+) H Urine Glucose (UA) Negative Urine Ketones Negative Urine Blood Large (3+) H Urine Nitrite Positive H Ur Leukocyte Esterase Large (3+) H Urine RBC >20 H Urine WBC >50 H Ur Squamous Epith Cells 3-5 Urine Bacteria 4+ Hyaline Casts 11-20 Granular Casts Present 03/21/25 04:10 MCV MCH MCHC RDW Plt Count MPV Absolute Nucleated RBC Nucleated RBC % (auto) Anion Gap Estim Creat Clear Calc Estimated GFR Random Glucose Lactic Acid Lactic Acid F/U @ 2Hr Lactic Acid F/U @ 4Hr 3.1 H* Calcium Magnesium Total Bilirubin AST ALT Alkaline Phosphatase Total Protein Albumin Urine Color Urine Appearance Urine pH Ur Specific [place] Urine Protein Urine Glucose (UA) Urine Ketones Urine Blood Urine Nitrite Ur Leukocyte Esterase Urine RBC Urine WBC Ur Squamous Epith Cells Urine Bacteria Hyaline Casts Granular Casts Assessment and Plan (1) Severe sepsis: Status: Acute (2) Acute UTI: Status: Acute (3) Complication of urostomy: Status: Acute (4) LUIS (acute kidney injury): Status: Acute (5) Metabolic acidosis: Status: Acute (6) Acute lactic acidosis: Status: Acute (7) Hyponatremia: Status: Acute Plan Patient is a 74-year-old male with a past medical history significant for mild intermittent asthma, type 2 diabetes, HLD, HTN, history bladder cancer s/p cystectomy and ileal loop urostomy, with recent admission for urostomy bleed requiring blood transfusion and new diagnosis of liver cirrhosis ?JENNIE, discharged 03/17/25, who presented to the ED due to 2 days of low back pain with fever up to 103.3 and decreased output in his urostomy bag/constipation. severe sepsis secondary to UTI with urostomy complication - WBC 6.0, T-max of 103.3 degrees, tachycardic, tachypneic, lactic acid elevated at 3.5, 3.7 then 3.1, blood cultures x2 pending, elevated LFTs and LUIS - BMP with metabolic acidosis - abdominopelvic CT with distended ileal conduit and bilateral hydroureteronephrosis, etc. dysfunction of the Judge catheter located within the conduit at the ostomy site. Patchy opacity of the left lower lobe, this could be aspiration or consolidation, follow up to clearing would be helpful. Small amount of ascites and effusions of uncertain etiology. This could be related to the urinary process, 3rd spacing of fluid volume overload, or sequela of portal hypertension - UA + - given 30 cc/kg fluid bolus in ED, blood pressure stable - noted on cefepime and vancomycin, switch to ceftriaxone - urology consult - monitor CBC and BMP LUIS - creatinine 1.49 - IV fluids as above - avoid nephrotoxins when possible - monitor BMP Acute lactic acidosis, secondary to severe sepsis - lactic acid 3.5, 3.7 then 3.1, repeat lactic acid pending - received 30 cc/kg fluid bolus in ED - treat underlying cause, UTI Hyponatremia, metabolic acidosis - IV fluids as above - monitor BMP Chronic anemia - hemoglobin improved, 9.3, hematocrit 28.5 - no need for blood transfusion at this time - monitor CBC Elevated LFTs, likely secondary to sepsis - patient also undergoing workup with GI outpatient for ?SCHNEIDER cirrhosis - continue outpatient follow-up Mild intermittent asthma, no acute exacerbation - LLL infiltrate on A/P CT, pt asx - continue home meds T2DM - sliding scale insulin - diabetic diet HLD - continue home meds HTN - normotensive, resume home meds when appropriate Med rec pending Full code VTE prophylaxis: Pneumoboots due to gross hematuria and recent admission with urostomy bleeding requiring blood transfusion Patient with severe sepsis secondary to UTI, complicated by urostomy tube displacement, requiring admission for at least 2 midnights stay for IV antibiotics and urological consultation. Quality Stroke Does the patient have a stroke diagnosis?: No VTE Prior VTE?: No VTE Risk Level:: Medical - moderate - high VTE Device Contraindication: N/A - Device Ordered VTE Drug Contraindication: Treatment Not Indicated
--- NOTE | 2025-03-21 07:22 | PC.NURSE ---
PT A&O X4 VSS NAD denies pain at this time, is c/o abd bloating and distention but no pain.
[2025-03-21] MEDS: 0.9 % Sodium Chloride Flush 3 ML SYRINGE IVFLUSH ×3 (07:48→20:41)
--- NOTE | 2025-03-21 08:16 | PHA.MEDREC ---
Pharmacy Consult ? Medication Reconciliation Pharmacy has completed the medication reconciliation. Patient confirmed all medications. Reports he preferred Symbicort but his insurance switched him to Advair and states the Advair is not working. Patient reported not using his prescribed oxycodone because it is too strong. Reported taking all his medications last night except the Atorvastatin. Terri Horan, PharmD
[2025-03-21] MEDS: Lidocaine HCl Viscous 2 % 15 ML SOLUTION MUCOUS MEM (08:36)
[2025-03-21 09:44] LABS: Hematocrit 27.6 % (42.0-52.0); Hemoglobin 9.0 g/dl (14.0-18.0); Mean Corpuscular HGB Conc 32.6 g/dl (31.0-36.0); Mean Corpuscular Hemoglobin 31.1 pg (27.0-33.0); Mean Corpuscular Volume 95.5 fL (80.0-98.0); NRBC Abs Auto 0.000 X10*3/uL (0.0-0.012); NRBC Pct Auto 0.0 /100WBC (0.0-0.2); Platelet Count 105 X10*3/uL (160-400); Red Blood Count 2.89 X10*6/uL (4.60-5.80); White Blood Count 19.2 X10*3/uL (4.8-10.8)
[2025-03-21 09:50] LABS: Glucose, Whole Blood 95 mg/dL (60-115)
[2025-03-21 10:52] LABS: Band Neutrophils Percent 15 % (3-5); Lymphocytes Absolute Manual 0.4 X10*3/uL (1.2-4.9); Lymphocytes Percent Manual 2 % (20-40); Monocytes Absolute Manual 0.6 X10*3/uL (0.1-1.2); Monocytes Percent Manual 3 % (2-11); Neutrophils Absolute Manual 18.2 X10*3/uL (2.0-8.3); Neutrophils Percent Manual 80 % (45-73)
[2025-03-21 10:55] LABS: Burr Cells 2+ (3-5) /OIF; RBC Morphology NOTED; Toxic Vacuolation PRESENT
[2025-03-21 11:01] LABS: Alanine Aminotransferase 22 U/L (0-40); Albumin Level 2.9 g/dL (3.5-5.0); Alkaline Phosphatase 244 U/L (39-117); Anion Gap 15 (12-20); Aspartate Amino Transferase 54 U/L (5-37); Blood Urea Nitrogen 24 mg/dL (9-16); Calcium 7.9 mg/dL (8.4-10.2); Carbon Dioxide 17 mmol/L (22-29); Chloride 102 mmol/L (96-108); Creatinine Clr Calc Pharmacy 23.3; Estimated Glomerular Filt Rate 31; Potassium 5.0 mmol/L (3.3-5.1); Sodium 129 mmol/L (135-145); Total Protein 6.3 g/dL (6.5-8.0)
[2025-03-21 11:30] LABS: Reflex Lactate? Lactic Acid Added
[2025-03-21 11:58] LABS: Glucose, Whole Blood 108 mg/dL (60-115)
[2025-03-21 12:24] LABS: ~Lactic Acid-LAB USE ONLY 2.8 mmol/L (0.5-2.0)
[2025-03-21 12:26] LABS: Reflex Lactate? 2 N
--- NOTE | 2025-03-21 12:40 | MHC.CM.PN ---
IMM DELIVERED PT LIVES WITH FAMILY AND IS FUNCTIONALLY INDEPENDENT AT BASELINE. PT HAS A UROSTOMY. PT WAS DUE TO BE SEEN BY [facility] BUT WAS RE-HOSPITALIZED BEFORE SOC. NEW REFERRAL PLACED TO [facility] ([facility]) NO DME. PT HAS COPY OF HCP AT HOME, COPY REQUESTED VIA . PCP DP: HOME WITH RESUMPTION/NEW [facility] FOR SN/P.T. SERVICES. PT'S FAMILY WILL TRANSPORT HOME. CM WILL CONTINUE TO FOLLOW FOR ANY CHANGE TO DC PLAN/NEEDS.
[2025-03-21] MEDS: oxyCODONE HCl Immed Release 5 MG TABLET PO ×2 (15:45→22:42)
[2025-03-21 16:42] LABS: Glucose, Whole Blood 109 mg/dL (60-115)
[2025-03-21 20:39] LABS: Glucose, Whole Blood 105 mg/dL (60-115)
[2025-03-21] MEDS: Milk of Magnesia 30 ML ORAL.SUSP PO (20:48)
[2025-03-21 22:13] LABS: Anion Gap 18 (12-20); Blood Urea Nitrogen 30 mg/dL (9-16); Calcium 8.0 mg/dL (8.4-10.2); Carbon Dioxide 15 mmol/L (22-29); Chloride 99 mmol/L (96-108); Creatinine Clr Calc Pharmacy 20.0; Estimated Glomerular Filt Rate 24; Potassium 5.9 mmol/L (3.3-5.1); Sodium 126 mmol/L (135-145)
--- NOTE | 2025-03-21 23:33 | PM.EVENT ---
Event Note Date of Service: 03/21/25 Event Note: pt with continued decreased urine output. spoke with urologist who will remove the lauren in the morning. repeat BMP with worsening creatinine, hyperkalemia and metabolic acidosis. orders for lokelma 10mg, calcium gluconate 2g, bicarb 50 IVP. EKG and start tele. nephrology consult. 1 L LR. check phosphate. repeat BMP in 3 hours. case discussed with Dr Rizzo Time Spent With Patient Time: Total time managing care of this patient today ____ minutes.
[2025-03-21] MEDS: Lactated Ringers 1,000 ML 999 ML IV (23:56)
[2025-03-21] MEDS: Calcium Gluconate/NaCl,Iso-Osm 2 GM/100 ML PLAST..BAG IV (23:56)
[2025-03-22] VITALS: BP 135/66; PULSE 120; RESP 16; TEMP 37.1; O2SAT 96
--- NOTE | 2025-03-22 | ECG_ITS ---
Test Reason : CP Blood Pressure : */* mmHG Vent. Rate : 86 BPM Atrial Rate : 86 BPM P-R Int : 156 ms QRS Dur : 94 ms QT Int : 388 ms P-R-T Axes : 25 -46 71 degrees QTcB Int : 464 ms Normal sinus rhythm Incomplete right bundle branch block Left anterior fascicular block Septal infarct , age undetermined Abnormal ECG When compared with ECG of 21-Mar-2025 23:43, Incomplete right bundle branch block is now Present Septal infarct is now Present Referred By: Yang Pierre Electronically Signed By: Marv Aguiar
--- NOTE | 2025-03-22 00:44 | PM.EVENT ---
Event Note Date of Service: 03/22/25 Event Note: Pt on tele, sustaining HR in the 120s. repeat EKG. add trop and lactic acid. still receiving LR. received all tx for hyperkalemia. repeat BMP at 2AM. pt is asx. no chest pain, SOB, nausea, abd pain. distended but bowels are active. urostomy bag with mostly straw colored urine, blood tinged. small amout of urine in bag. pt resting comfortably. Time Spent With Patient Time: Total time managing care of this patient today ____ minutes.
[2025-03-22 01:26] LABS: Anion Gap 18 (12-20); Blood Urea Nitrogen 33 mg/dL (9-16); Calcium 8.1 mg/dL (8.4-10.2); Carbon Dioxide 17 mmol/L (22-29); Chloride 98 mmol/L (96-108); Creatinine Clr Calc Pharmacy 19.1; Estimated Glomerular Filt Rate 23; Potassium 5.9 mmol/L (3.3-5.1); Sodium 127 mmol/L (135-145)
[2025-03-22 01:33] LABS: Troponin-I High Sensitivity 19.0 ng/L (<3.5-35.0)
[2025-03-22 03:06] LABS: Reflex Lactate? Lactic Acid Added
[2025-03-22 03:21] VITALS: BP 135/64; PULSE 120; RESP 18; TEMP 37.4; O2SAT 98
[2025-03-22 04:36] LABS: ~Lactic Acid-LAB USE ONLY 2.7 mmol/L (0.5-2.0)
[2025-03-22 04:37] LABS: Cancel Lactic Acid Canceled
[2025-03-22 05:08] LABS: NRBC Abs Auto 0.000 X10*3/uL (0.0-0.012); NRBC Pct Auto 0.0 /100WBC (0.0-0.2); PLT CLUMP 1
[2025-03-22 05:10] LABS: Hematocrit 25.0 % (42.0-52.0); Hemoglobin 8.4 g/dl (14.0-18.0); Mean Corpuscular HGB Conc 33.6 g/dl (31.0-36.0); Mean Corpuscular Hemoglobin 31.7 pg (27.0-33.0); Mean Corpuscular Volume 94.3 fL (80.0-98.0); Red Blood Count 2.65 X10*6/uL (4.60-5.80)
[2025-03-22 05:12] LABS: White Blood Count 16.6 X10*3/uL (4.8-10.8)
[2025-03-22 05:13] LABS: Platelet Count 93 X10*3/uL (160-400)
[2025-03-22 05:28] LABS: Anion Gap 16 (12-20); Blood Urea Nitrogen 32 mg/dL (9-16); Calcium 7.9 mg/dL (8.4-10.2); Carbon Dioxide 17 mmol/L (22-29); Chloride 99 mmol/L (96-108); Creatinine Clr Calc Pharmacy 19.1; Estimated Glomerular Filt Rate 23; Potassium 5.0 mmol/L (3.3-5.1); Sodium 127 mmol/L (135-145)
[2025-03-22 05:46] LABS: Band Neutrophils Percent 22 % (3-5); Burr Cells 1+ (0-2) /OIF; Lymphocytes Absolute Manual 0.2 X10*3/uL (1.2-4.9); Lymphocytes Percent Manual 1 % (20-40); Macrocytosis 1+ (5-14) /OIF; Metamyelocytes Absolute 0.3 X10*3/uL; Metamyelocytes Percent 2 %; Monocytes Absolute Manual 0.7 X10*3/uL (0.1-1.2); Monocytes Percent Manual 4 % (2-11); Neutrophils Absolute Manual 15.4 X10*3/uL (2.0-8.3); Neutrophils Percent Manual 71 % (45-73); Ovalocytes 1+ (5-14) /OIF; RBC Morphology NOTED
[2025-03-22 07:08] VITALS: BP 101/61; PULSE 71; RESP 20; TEMP 36.7; O2SAT 96
[2025-03-22 07:25] LABS: Glucose, Whole Blood 65 mg/dL (60-115)
[2025-03-22] MEDS: Ferrous Sulfate 324 MG TABLET.DR PO (07:36)
[2025-03-22] MEDS: 0.9 % Sodium Chloride Flush 3 ML SYRINGE IVFLUSH (07:43)
[2025-03-22 09:08] LABS: Glucose, Whole Blood 104 mg/dL (60-115)
--- NOTE | 2025-03-22 10:52 | PM.CNNEP ---
History of Present Illness Reason for Consult Consult date: 03/22/25 Chief Complaint Chief complaint: Fever History of Present Illness Narrative: 74 y/o male with a history of bladder CA s/p cystectomy and ileal loop urostomy 2020, HTN, HLD, DMII, asthma. Had recent admission for urostomy bleed and new dx of liver cirrhosis ?SCHNEIDER. had revision of ileostomy during last admission on 03/15. presented 03/21 with x2 days of low back pain, fevers, decreased urine output with pink-tinged urine, constipation. Nephrology consulted for LUIS. 03/20 blood cultures with gram positive rods; urine culture pending- UA with blood, protein, nitrites and WBCs. CT: distended ileal conduit and bilateral moderate hydroureteronephrosis patient reports he is very tired, feels sweaty and hot. Reports he had pain in his right flank area prior to admission though this has subsided. Reports some pain around urostomy site. Denies other pain, denies shortness of breath, denies other new symptoms/concerns. Review of Systems Constitutional: Reports malaise Cardiovascular: Denies chest pain, Denies leg edema, Denies lightheadedness and Denies dyspnea Respiratory: Denies dyspnea Gastrointestinal: Denies abdominal pain, Reports constipation, Denies diarrhea, Denies nausea and Denies vomiting Genitourinary: Reports hematuria, Reports oliguria and Reports flank pain (pt reports this has resolved) Skin/Breast: Denies rash PMFSH Past Medical History Medical History Cirrhosis of liver Complication of urostomy HTN (hypertension) Acute hyponatremia Hydronephrosis Bladder cancer Asthma Diabetes Bladder cancer Incomplete emptying of bladder due to benign prostatic hyperplasia Complicated urinary tract infection Surgical History Surgical History History of surgery History of ileal conduit Social History Social History Household Members: Family Housing: House Are you a primary medicare insurance specialist to a significant other at home: No Do you presently have visiting nurse or other home services: Yes Alcohol intake: never Comment: bedside Patient Tobacco Use Status: Never used Tobacco Advance Directives Date on File: 03/12/25 service: No Current occupational status: retired Meds Allergies Allergy/AdvReac Type Severity Reaction Status Date / Time aspirin Allergy Unknown Verified 03/20/25 23:11 Beta-Blockers AdvReac Unknown Verified 03/20/25 23:11 (Beta-Adrenergic Bloc ibuprofen AdvReac Unknown Verified 03/20/25 23:11 Active Medications: Current Medications Acetaminophen (Acetaminophen 325 Mg Tablet) 975 mg PO Q6H PRN PRN Reason: Pain, Mild 1-3,fever,headache Last Admin: 03/21/25 08:15 Dose: 975 mg Calcium Carbonate (Calcium Carbonate 750 Mg Tab.Chew) 750 mg PO Q4H PRN PRN Reason: Heartburn Ceftriaxone Sodium (Ceftriaxone Sodium 2 Gm Vial) 2 gm IVPUSH Q24H [facility] Last Admin: 03/22/25 07:36 Dose: 2 gm Dextrose (Dextrose 50 % 25 Gm/50 Ml Syringe) 25 gm IVPUSH Q15M PRN; Protocol PRN Reason: per Hypoglycemia Standing Ord. Ferrous Sulfate (Ferrous Sulfate 324 Mg Tablet.Dr) 324 mg PO DAILY [facility] Last Admin: 03/22/25 07:36 Dose: 324 mg Fluticasone/Vilanterol (Fluticasone/Vilanterol 200/25 Blst.W.Dev) 1 puff INHALE RDAILY [facility] Last Admin: 03/22/25 08:24 Dose: Not Given Folic Acid (Folic Acid 1 Mg Tablet) 1 mg PO DAILY [facility] Last Admin: 03/22/25 07:36 Dose: 1 mg Glucose (Glucose Gel 15 Gm Gel..Gram.) 15 gm PO Q15M PRN; Protocol PRN Reason: per Hypoglycemia Standing Ord. Insulin Human Lispro (Insulin Lispro 100 Unit/Ml 3 Ml Vial) 0 unit SUBCUT QIDACHS [facility]; Protocol Last Admin: 03/22/25 07:23 Dose: Not Given Magnesium Hydroxide (Milk Of Magnesia 30 Ml Oral.Susp) 30 ml PO DAILY PRN PRN Reason: Constipation Last Admin: 03/21/25 20:48 Dose: 30 ml Melatonin (Melatonin 3 Mg Tablet) 6 mg PO BEDTIME PRN PRN Reason: Insomnia Montelukast Sodium (Montelukast Sodium 10 Mg Tablet) 10 mg PO DAILY [facility] Last Admin: 03/22/25 07:36 Dose: 10 mg Ondansetron HCl (Ondansetron Hcl 4 Mg/2 Ml Vial) 4 mg IVPUSH Q8H PRN PRN Reason: Nausea and Vomiting Last Admin: 03/21/25 16:28 Dose: 4 mg Oxycodone HCl (Oxycodone Hcl Immed Release 5 Mg Tablet) 5 mg PO Q6H PRN PRN Reason: Pain, Severe (Pain Scale 7-10) Last Admin: 03/21/25 22:42 Dose: 5 mg Sodium Chloride (0.9 % Sodium Chloride Flush 3 Ml Syringe) 3 ml IVFLUSH QSHIFT [facility] Last Admin: 03/22/25 07:43 Dose: 3 ml Tramadol HCl (Tramadol Hcl 50 Mg Tablet) 50 mg PO Q6H PRN PRN Reason: Pain, Moderate(Pain Scale 4-6) Last Admin: 03/21/25 20:40 Dose: 50 mg Home Medications ?Medication ?Instructions ?Recorded ?Confirmed ?Last Taken ?Type blood sugar diagnostic (FreeStyle #10 ea 04/18/21 01/05/24 Unknown History Lite Strips) montelukast 10 mg tablet 10 mg PO DAILY 04/18/21 03/21/25 03/20/25 History lancets 28 gauge (FreeStyle #100 ea 06/24/21 01/05/24 Unknown History Lancets) folic acid 1 mg tablet 1 mg PO DAILY 12/10/21 03/21/25 03/20/25 History albuterol sulfate 90 mcg/actuation 2 puff PO QID PRN Shortness Of 02/08/22 03/21/25 Unknown History aerosol inhaler Breath atorvastatin 20 mg tablet 20 mg PO BEDTIME 03/01/25 03/21/25 03/19/25 History ferrous sulfate 325 mg (65 mg 325 mg PO DAILY 03/01/25 03/21/25 03/20/25 History iron) tablet (iron) metformin 500 mg tablet 500 mg PO BID 03/01/25 03/21/25 03/20/25 History sitagliptin phosphate 50 mg tablet 50 mg PO DAILY 03/01/25 03/21/25 03/20/25 History (Januvia) telmisartan 20 mg tablet 20 mg PO DAILY 03/01/25 03/21/25 03/20/25 History bisacodyl 5 mg tablet,delayed 5 mg PO DAILY constipation 03/21/25 03/21/25 03/20/25 History release (Dulcolax (bisacodyl)) fluticasone 232 mcg-salmeterol 14 1 inh inhalation BID 03/21/25 03/21/25 03/20/25 History mcg/actuation breath activated powdr Physical Exam Vital Signs: Last Vital Signs Temp 98.1 F 03/22/25 07:08 Pulse 71 03/22/25 07:08 Resp 20 03/22/25 07:08 BP 101/61 03/22/25 07:08 Pulse Ox 96 03/22/25 07:08 O2 Del Method Room Air 03/22/25 07:08 BMI result Body Mass Index 27.1 Const General: no acute distress, alert, awake and diaphoretic Resp Effort & Inspection: normal respiratory effort and able to speak in complete sentences Auscultation: clear to auscultation bilaterally Cardio Rate: regular rate Rhythm: regular rhythm Heart sounds: S1 normal heart sound present and S2 normal heart sound present GI Palpation (GI): Soft to palpation and Tenderness to palpation present (GI) (tender RLQ around urostomy site) Skin Rashes: no rashes Extrem General: No edema Results Lab Results 03/22/25 03:51 03/22/25 03:51 Lab results: Chemistry 03/20/25 03/21/25 03/21/25 23:07 09:27 21:43 Sodium 132 L 129 L 126 L Potassium 5.1 5.0 5.9 H Carbon Dioxide 18 L 17 L 15 L BUN 21 H 24 H 30 H Creatinine 1.49 H 2.08 H 2.65 H Calcium 8.2 L 7.9 L 8.0 L Phosphorus 4.5 03/22/25 03/22/25 01:02 03:51 Sodium 127 L 127 L Potassium 5.9 H 5.0 Carbon Dioxide 17 L 17 L BUN 33 H 32 H Creatinine 2.73 H 2.73 H Calcium 8.1 L 7.9 L Phosphorus Hematology 03/20/25 03/21/25 03/22/25 23:07 09:27 03:51 WBC 6.0 19.2 H 16.6 H Hgb 9.3 L 9.0 L 8.4 L Plt Count 125 L 105 L 93 L Urinalysis 03/20/25 23:21 Urine Color Alpine A Urine Appearance Turbid Urine pH 7.0 Ur Specific [place] 1.015 Urine Protein 300 (3+) H Urine Glucose (UA) Negative Urine Ketones Negative Urine Blood Large (3+) H Urine Nitrite Positive H Ur Leukocyte Esterase Large (3+) H Urine RBC >20 H Urine WBC >50 H Ur Squamous Epith Cells 3-5 Hyaline Casts 11-20 Assessment and Plan (1) LUIS (acute kidney injury): Status: Acute Plan LUIS secondary to obstruction. ATN from sepsis likely also contributing Recommend urology consult to address obstruction, as well as treatment of underlying infection. metabolic acidosis from sepsis hyponatremia- likely from hypovolemia, pt reports nausea and poor PO intake prior to admission. Will check urine sodium, urine osm. Recommend daily electrolyte and renal function studies recommend close I&O monitoring, regular blood pressure checks- avoid hypotension recommend avoiding nephrotoxic agents Continue supportive care Discussed with Dr Nascimento. Procedures Date of Service Date of Service: 03/22/25
[2025-03-22 11:27] LABS: Glucose, Whole Blood 103 mg/dL (60-115)
--- NOTE | 2025-03-22 12:30 | HO.WOUND ---
Wound Consult: Initial 75yr old admitted to [facility] on 03/20/25 - See progress notes and H&P for detailed history. Wound consult placed for left forearm skin tear. Patient agreeable to assessment and photo documentation. Patient seen with at bedside, they report skin injury related to pulling of hospital bracelets. Etiology: skin tear Measurements: 2cm x 2.5cm x 0.1cm Wound Bed: dry red/scabbed Drainage / Odor: none Edges: ? attached Luma wound: ? No Induration, Fluctuance or Warmth noted, mild localized ring of redness Pain: none Goals of Treatment: ? moist wound healing Recommendations: 1. Turn and Reposition every 2 hours and as needed for patient comfort. Use pillows or wedges to support off loading positions. 2. Off Load all bony prominences with use of pillows and heel boots if needed. Apply Preventative foams where needed. 3. Monitor for incontinence and moisture control, use barrier creams when needed for prevention and treatment. 4. Provide adequate and supplemental nutrition. 5. Order or Continue low air loss mattress. 6. When applicable maintain blood glucose levels per Providers order. 7. Left forearm skin tear: gently cleanse with normal saline, apply xeroform, cover with gauze, wrap with rolled gauze, change daily and PRN. Re-consult wound care Nurse for wound deterioration or wound changes.
--- NOTE | 2025-03-22 13:25 | MHC.CM.PN ---
Per rounds, pt is not ready to DC yet, nephrology to see him, CM to follow.
[2025-03-22 15:17] VITALS: BP 126/61; PULSE 82; RESP 18; TEMP 36.4; O2SAT 98
[2025-03-22 16:05] LABS: Glucose, Whole Blood 108 mg/dL (60-115)
--- NOTE | 2025-03-22 16:19 | P.PNIM_ITS ---
Subjective Subjective Date of Service: 03/22/25 Interval History: sepsis sec uti. overnight events noted Review of Systems has nausea /vomiting No fever ,tachycardia improving Review of Systems: Yes all other systems are reviewed and are negative Physical Exam 2 Exam: Exam: Appearance: Alert.? Oriented X3.? cvs: rrr, [id number] . res: clear to auscultation ,no rhonchii or wheezing abd:+BS, NT, no distention. pink tinged urine in urostomy bag with minimal output. ext pulses present , no cyanosis. neuro: axo3 , nonfocal. Let me Vital Signs: Vital Signs: Last Vital Signs Temp 97.6 F 03/22/25 15:17 Pulse 82 03/22/25 15:17 Resp 18 03/22/25 15:17 BP 126/61 03/22/25 15:17 Pulse Ox 98 03/22/25 15:17 O2 Del Method Room Air 03/22/25 15:17 BMI result Body Mass Index 27.1 Objective Data Active Medications Acetaminophen (Acetaminophen 325 Mg Tablet) 975 mg PO Q6H PRN PRN Reason: Pain, Mild 1-3,fever,headache Last Admin: 03/21/25 08:15 Dose: 975 mg Documented By: LINDA Calcium Carbonate (Calcium Carbonate 750 Mg Tab.Chew) 750 mg PO Q4H PRN PRN Reason: Heartburn Ceftriaxone Sodium (Ceftriaxone Sodium 2 Gm Vial) 2 gm IVPUSH Q24H [facility] Last Admin: 03/22/25 07:36 Dose: 2 gm Documented By: LARRY Dextrose (Dextrose 50 % 25 Gm/50 Ml Syringe) 25 gm IVPUSH Q15M PRN; Protocol PRN Reason: per Hypoglycemia Standing Ord. Ferrous Sulfate (Ferrous Sulfate 324 Mg Tablet.Dr) 324 mg PO DAILY [facility] Last Admin: 03/22/25 07:36 Dose: 324 mg Documented By: LARRY Fluticasone/Vilanterol (Fluticasone/Vilanterol 200/25 Blst.W.Dev) 1 puff INHALE RDAILY [facility] Last Admin: 03/22/25 08:24 Dose: Not Given Documented By: AMY Non-Admin Reason: pharmacy called for med Folic Acid (Folic Acid 1 Mg Tablet) 1 mg PO DAILY [facility] Last Admin: 03/22/25 07:36 Dose: 1 mg Documented By: LARRY Glucose (Glucose Gel 15 Gm Gel..Gram.) 15 gm PO Q15M PRN; Protocol PRN Reason: per Hypoglycemia Standing Ord. Sodium Chloride (Ns) 1,000 mls @ 80 mls/hr IVCONT .[id number] [facility] Last Admin: 03/22/25 11:34 Dose: 80 mls/hr Documented By: LARRY Insulin Human Lispro (Insulin Lispro 100 Unit/Ml 3 Ml Vial) 0 unit SUBCUT QIDACHS [facility]; Protocol Last Admin: 03/22/25 16:04 Dose: Not Given Documented By: LARRY Non-Admin Reason: No Insulin Coverage Magnesium Hydroxide (Milk Of Magnesia 30 Ml Oral.Susp) 30 ml PO DAILY PRN PRN Reason: Constipation Last Admin: 03/21/25 20:48 Dose: 30 ml Documented By: IGOR Melatonin (Melatonin 3 Mg Tablet) 6 mg PO BEDTIME PRN PRN Reason: Insomnia Montelukast Sodium (Montelukast Sodium 10 Mg Tablet) 10 mg PO DAILY [facility] Last Admin: 03/22/25 07:36 Dose: 10 mg Documented By: LARRY Ondansetron HCl (Ondansetron Hcl 4 Mg/2 Ml Vial) 4 mg IVPUSH Q8H PRN PRN Reason: Nausea and Vomiting Last Admin: 03/22/25 11:34 Dose: 4 mg Documented By: LARRY Oxycodone HCl (Oxycodone Hcl Immed Release 5 Mg Tablet) 5 mg PO Q6H PRN PRN Reason: Pain, Severe (Pain Scale 7-10) Last Admin: 03/21/25 22:42 Dose: 5 mg Documented By: IGOR Prochlorperazine Edisylate (Prochlorperazine Edisylate 10 Mg/2 Ml Vial) 5 mg IV Q6H PRN PRN Reason: Nausea and Vomiting Last Admin: 03/22/25 13:19 Dose: 5 mg Documented By: LARRY Sodium Chloride (0.9 % Sodium Chloride Flush 3 Ml Syringe) [facility] Last Admin: 03/22/25 15:47 Dose: Not Given Documented By: LARRY Non-Admin Reason: Previously Administered Tramadol HCl (Tramadol Hcl 50 Mg Tablet) 50 mg PO Q6H PRN PRN Reason: Pain, Moderate(Pain Scale 4-6) Last Admin: 03/21/25 20:40 Dose: 50 mg Documented By: IGOR Labs 03/22/25 03:51 03/22/25 18:50 Labs: Laboratory Results - last 24 hr 03/21/25 03/21/25 03/21/25 16:37 20:33 21:43 MCV MCH MCHC RDW Plt Count MPV Immature Gran % (Auto) Neut % (Auto) Lymph % (Auto) Delta % (Auto) Eos % (Auto) Baso % (Auto) Lymph # (Auto) Delta # (Auto) Eos # (Auto) Baso # (Auto) Abs Immat Gran (auto) Absolute Neuts (auto) Absolute Nucleated RBC Nucleated RBC % (auto) Neutrophils % (Manual) Band Neutrophils % Lymphocytes % (Manual) Monocytes % (Manual) Metamyelocytes % Abs Neuts (Manual) Lymphocytes # (Manual) Monocytes # (Manual) Metamyelocytes # Platelet Estimate Plt Morphology Comment RBC Morphology Macrocytosis Ovalocytes Demetrice Cells Anion Gap 18 Estim Creat Clear Calc 20.0 Estimated GFR 24 POC Glucose 109 105 Random Glucose 104 Lactic Acid Lactic Acid F/U @ 2Hr Calcium 8.0 L Phosphorus 4.5 03/22/25 03/22/25 03/22/25 01:02 03:51 07:22 MCV 94.3 MCH 31.7 MCHC 33.6 RDW 17.1 H Plt Count 93 L MPV 11.5 Immature Gran % (Auto) Cancelled Neut % (Auto) Cancelled Lymph % (Auto) Cancelled Delta % (Auto) Cancelled Eos % (Auto) Cancelled Baso % (Auto) Cancelled Lymph # (Auto) Cancelled Delta # (Auto) Cancelled Eos # (Auto) Cancelled Baso # (Auto) Cancelled Abs Immat Gran (auto) Cancelled Absolute Neuts (auto) Cancelled Absolute Nucleated RBC 0.000 Nucleated RBC % (auto) 0.0 Neutrophils % (Manual) 71 Band Neutrophils % 22 H Lymphocytes % (Manual) 1 L Monocytes % (Manual) 4 Metamyelocytes % 2 Abs Neuts (Manual) 15.4 H Lymphocytes # (Manual) 0.2 L Monocytes # (Manual) 0.7 Metamyelocytes # 0.3 Platelet Estimate DECREASED Plt Morphology Comment NORMAL RBC Morphology NOTED Macrocytosis 1+ (5-14) Ovalocytes 1+ (5-14) Bob White Cells 1+ (0-2) Anion Gap 18 16 Estim Creat Clear Calc 19.1 19.1 Estimated GFR 23 23 POC Glucose 65 Random Glucose 92 85 Lactic Acid 2.9 H* Lactic Acid F/U @ 2Hr 2.7 H* Calcium 8.1 L 7.9 L Phosphorus 03/22/25 03/22/25 03/22/25 09:03 11:24 16:00 MCV MCH MCHC RDW Plt Count MPV Immature Gran % (Auto) Neut % (Auto) Lymph % (Auto) Delta % (Auto) Eos % (Auto) Baso % (Auto) Lymph # (Auto) Delta # (Auto) Eos # (Auto) Baso # (Auto) Abs Immat Gran (auto) Absolute Neuts (auto) Absolute Nucleated RBC Nucleated RBC % (auto) Neutrophils % (Manual) Band Neutrophils % Lymphocytes % (Manual) Monocytes % (Manual) Metamyelocytes % Abs Neuts (Manual) Lymphocytes # (Manual) Monocytes # (Manual) Metamyelocytes # Platelet Estimate Plt Morphology Comment RBC Morphology Macrocytosis Ovalocytes Demetrice Cells Anion Gap Estim Creat Clear Calc Estimated GFR POC Glucose 104 103 108 Random Glucose Lactic Acid Lactic Acid F/U @ 2Hr Calcium Phosphorus Microbiology Microbiology Results: Microbiology 03/20/25 Unknown Urine Culture - Final Urine clean catch - Clean Catch Midstream 03/20/25 23:21 Blood Culture - Preliminary Blood - Venous Gram negative jackie 03/20/25 23:07 Blood Culture - Preliminary Blood - Venous Gram negative jackie Assessment and Plan (1) LUIS (acute kidney injury): Status: Acute Assessment and Plan: 74-year-old male with a past medical history significant for mild intermittent asthma, type 2 diabetes, HLD, HTN, history bladder cancer s/p cystectomy and ileal loop urostomy, with recent admission for urostomy bleed requiring blood transfusion and new diagnosis of liver cirrhosis ?SCHNEIDER, discharged 03/17/25, who presented to the ED due to 2 days of low back pain with fever up to 103.3 and decreased output in his urostomy bag/constipation. severe sepsis secondary to UTI with urostomy complication ua : pyuria/bacteruria /hematuria leucocytosis improving , tachcardia/tachypenia improving ua positive ,blood cultures x2-gram negative jackie LUIS similar acute lactic acidosis improving, no further trending ,bicarb also flactautes . abdominopelvic CT with distended ileal conduit and bilateral hydroureteronephrosis, etc. dysfunction of the Lauren catheter located within the conduit at the ostomy site. Patchy opacity of the left lower lobe, this could be aspiration or consolidation, follow up to clearing would be helpful. Small amount of ascites and effusions of uncertain etiology. This could be related to the urinary process, 3rd spacing of fluid volume overload, or sequela of portal hypertension. Overnight events noted-patient received treatment for hyperkalemia, also IV fluids Plan:nausea /vomiting -likley in setting of above ct ?lauren displaced/luis/uti. Urology consult for-possible displaced Lauren? CTA abdomen. Continue IV fluid, antiemetics, pain management. LUIS:LUIS secondary to obstruction. ATN from sepsis likely also contributing - avoid nephrotoxins when possible - monitor BMP,ivf low biracb -moniter bmp in evening -night staff will follow. Hyponatremia, metabolic acidosis IV fluids as above monitor BMP-night staff will follow. Chronic anemia - hemoglobin improved, 8.5/25 - no need for blood transfusion at this time - monitor CBC Elevated LFTs, likely secondary to sepsis patient also undergoing workup with GI outpatient for ?SCHNEIDER cirrhosis continue outpatient follow-up Mild intermittent asthma, no acute exacerbation- LLL infiltrate on A/P CT, pt asx continue home meds T2DM - sliding scale insulin - diabetic diet HLD - continue home meds HTN - normotensive, resume home meds when appropriate Med rec pending Full code VTE prophylaxis: Pneumoboots due to gross hematuria and recent admission with urostomy bleeding requiring blood transfusion Patient with severe sepsis secondary to UTI, complicated by urostomy tube displacement, requiring admission for at least 2 midnights stay for IV antibiotics and urological consultation. Quality Stroke Does the patient have a stroke diagnosis?: No VTE Prior VTE?: No VTE Risk Level:: Medical - moderate - high VTE Device Contraindication: N/A - Device Ordered VTE Drug Contraindication: Treatment Not Indicated
[2025-03-22 19:31] LABS: Anion Gap 16 (12-20); Blood Urea Nitrogen 40 mg/dL (9-16); Calcium 7.6 mg/dL (8.4-10.2); Carbon Dioxide 15 mmol/L (22-29); Chloride 99 mmol/L (96-108); Creatinine Clr Calc Pharmacy 18.1; Estimated Glomerular Filt Rate 21; Potassium 4.9 mmol/L (3.3-5.1); Sodium 125 mmol/L (135-145)
[2025-03-22 20:00] VITALS: BP 149/66; PULSE 87; RESP 16; TEMP 36.4; O2SAT 97
[2025-03-22 20:39] LABS: Glucose, Whole Blood 110 mg/dL (60-115)
[2025-03-23 00:01] VITALS: BP 146/65; PULSE 91; RESP 16; TEMP 37; O2SAT 95
[2025-03-23] MEDS: oxyCODONE HCl Immed Release 5 MG TABLET PO (02:08)
[2025-03-23 03:56] VITALS: BP 133/62; PULSE 89; RESP 17; TEMP 36.6; O2SAT 95
[2025-03-23 04:12] VITALS: BP 140/66; PULSE 91; RESP 16; O2SAT 98
[2025-03-23 07:10] VITALS: BP 135/64; PULSE 88; RESP 18; TEMP 36.3; O2SAT 99
[2025-03-23 07:29] LABS: Glucose, Whole Blood 120 mg/dL (60-115)
[2025-03-23 07:45] LABS: Hematocrit 25.3 % (42.0-52.0); Hemoglobin 8.4 g/dl (14.0-18.0); Mean Corpuscular HGB Conc 33.2 g/dl (31.0-36.0); Mean Corpuscular Hemoglobin 30.9 pg (27.0-33.0); Mean Corpuscular Volume 93.0 fL (80.0-98.0); NRBC Abs Auto 0.000 X10*3/uL (0.0-0.012); NRBC Pct Auto 0.0 /100WBC (0.0-0.2); Platelet Count 119 X10*3/uL (160-400); Red Blood Count 2.72 X10*6/uL (4.60-5.80); White Blood Count 16.2 X10*3/uL (4.8-10.8)
[2025-03-23 08:27] LABS: Band Neutrophils Percent 3 % (3-5); Lymphocytes Absolute Manual 0.2 X10*3/uL (1.2-4.9); Lymphocytes Percent Manual 1 % (20-40); Monocytes Absolute Manual 0.8 X10*3/uL (0.1-1.2); Monocytes Percent Manual 5 % (2-11); Neutrophils Absolute Manual 15.2 X10*3/uL (2.0-8.3); Neutrophils Percent Manual 91 % (45-73)
[2025-03-23 08:28] LABS: Alanine Aminotransferase 16 U/L (0-40); Albumin Level 2.7 g/dL (3.5-5.0); Alkaline Phosphatase 210 U/L (39-117); Aspartate Amino Transferase 41 U/L (5-37); Blood Urea Nitrogen 39 mg/dL (9-16); Calcium 7.8 mg/dL (8.4-10.2); Creatinine Clr Calc Pharmacy 19.3; Estimated Glomerular Filt Rate 23; Total Protein 6.2 g/dL (6.5-8.0)
[2025-03-23 08:29] LABS: Burr Cells 1+ (0-2) /OIF; RBC Morphology NOTED
[2025-03-23 08:30] LABS: Hypochromasia 1+ (5-14) /OIF
[2025-03-23 08:31] LABS: Anion Gap 15 (12-20); Carbon Dioxide 16 mmol/L (22-29); Chloride 99 mmol/L (96-108); Potassium 3.6 mmol/L (3.3-5.1); Sodium 126 mmol/L (135-145)
--- NOTE | 2025-03-23 10:07 | PM.UROPN ---
Subjective Subjective Date of Service: 03/23/25 Interval history: Catheter removed from stoma yesterday Urine appears to have increased output and less concentrated color Creatinine slight reduction from 2.9 to 2.7 Does still feel some bloating On antibiotics Blood culture shows pansensitive E coli consistent with urosepsis Physical Exam Vital Signs: Vital Signs: Last Vital Signs Temp 97.3 F 03/23/25 07:10 Pulse 88 03/23/25 07:10 Resp 18 03/23/25 07:10 BP 135/64 03/23/25 07:10 Pulse Ox 99 03/23/25 07:10 O2 Del Method Room Air 03/23/25 07:10 BMI result Body Mass Index 27.1 Const: General: cooperative, healthy appearing, comfortable and no acute distress Orientation/consciousness: patient oriented x3 HEENT: Face and sinus: Yes normal facial exam Mouth: moist mucous membranes Neck: Neck: Yes normal visual inspection, Yes full ROM and Yes trachea midline Chest: Chest palpation & inspection: normal inspection of the chest Resp: Effort & Inspection: normal respiratory effort, able to speak in complete sentences and no respiratory distress GI: Inspection: Yes normal to inspection Back/Spine/Pelvis: Cervical Spine: normal cervical lordosis Thoracic/Lumbar Spine: thoracic and lumbar spine normal to inspection Skin: General skin exam: no rashes or lesions noted Neuro: General: patient oriented x3, tone normal and moves all extremities Extrem: General: Yes normal to inspection and Yes capillary refill normal Urology Results Labs 03/23/25 07:00 03/23/25 07:00 Labs: Laboratory Results - last 24 hr 03/22/25 03/22/25 03/22/25 11:24 16:00 18:50 WBC RBC Hgb Hct MCV MCH MCHC RDW Plt Count MPV Immature Gran % (Auto) Neut % (Auto) Lymph % (Auto) [place] % (Auto) Eos % (Auto) Baso % (Auto) Lymph # (Auto) [place] # (Auto) Eos # (Auto) Baso # (Auto) Abs Immat Gran (auto) Absolute Neuts (auto) Absolute Nucleated RBC Nucleated RBC % (auto) Neutrophils % (Manual) Band Neutrophils % Lymphocytes % (Manual) Monocytes % (Manual) Abs Neuts (Manual) Lymphocytes # (Manual) Monocytes # (Manual) Platelet Estimate Plt Morphology Comment RBC Morphology Hypochromasia Demetrice Cells Sodium 125 L Potassium 4.9 Chloride 99 Carbon Dioxide 15 L Anion Gap 16 BUN 40 H Creatinine 2.87 H Estim Creat Clear Calc 18.1 Estimated GFR 21 POC Glucose 103 108 Random Glucose 107 Calcium 7.6 L Total Bilirubin AST ALT Alkaline Phosphatase Total Protein Albumin Urine Osmolality Ur Random Sodium 03/22/25 03/22/25 03/23/25 20:13 20:35 07:00 WBC 16.2 H RBC 2.72 L Hgb 8.4 L Hct 25.3 L MCV 93.0 MCH 30.9 MCHC 33.2 RDW 17.0 H Plt Count 119 L D MPV 11.7 Immature Gran % (Auto) Cancelled Neut % (Auto) Cancelled Lymph % (Auto) Cancelled [place] % (Auto) Cancelled Eos % (Auto) Cancelled Baso % (Auto) Cancelled Lymph # (Auto) Cancelled [place] # (Auto) Cancelled Eos # (Auto) Cancelled Baso # (Auto) Cancelled Abs Immat Gran (auto) Cancelled Absolute Neuts (auto) Cancelled Absolute Nucleated RBC 0.000 Nucleated RBC % (auto) 0.0 Neutrophils % (Manual) 91 H Band Neutrophils % 3 Lymphocytes % (Manual) 1 L Monocytes % (Manual) 5 Abs Neuts (Manual) 15.2 H Lymphocytes # (Manual) 0.2 L Monocytes # (Manual) 0.8 Platelet Estimate DECREASED Plt Morphology Comment NORMAL RBC Morphology NOTED Hypochromasia 1+ (5-14) Demetrice Cells 1+ (0-2) Sodium 126 L Potassium 3.6 D Chloride 99 Carbon Dioxide 16 L Anion Gap 15 BUN 39 H Creatinine 2.69 H Estim Creat Clear Calc 19.3 Estimated GFR 23 POC Glucose 110 Random Glucose 115 Calcium 7.8 L Total Bilirubin 0.5 AST 41 H ALT 16 Alkaline Phosphatase 210 H Total Protein 6.2 L Albumin 2.7 L Urine Osmolality 259 L Ur Random Sodium 35.0 03/23/25 07:24 WBC RBC Hgb Hct MCV MCH MCHC RDW Plt Count MPV Immature Gran % (Auto) Neut % (Auto) Lymph % (Auto) [place] % (Auto) Eos % (Auto) Baso % (Auto) Lymph # (Auto) [place] # (Auto) Eos # (Auto) Baso # (Auto) Abs Immat Gran (auto) Absolute Neuts (auto) Absolute Nucleated RBC Nucleated RBC % (auto) Neutrophils % (Manual) Band Neutrophils % Lymphocytes % (Manual) Monocytes % (Manual) Abs Neuts (Manual) Lymphocytes # (Manual) Monocytes # (Manual) Platelet Estimate Plt Morphology Comment RBC Morphology Hypochromasia Demetrice Cells Sodium Potassium Chloride Carbon Dioxide Anion Gap BUN Creatinine Estim Creat Clear Calc Estimated GFR POC Glucose 120 H Random Glucose Calcium Total Bilirubin AST ALT Alkaline Phosphatase Total Protein Albumin Urine Osmolality Ur Random Sodium Progress Note: A&P Assessment and plan (1) Pyelonephritis: Status: Acute Plan Continue pyelonephritis management Time Spent With Patient Time: Total time managing care of this patient today ____ minutes. Progress Note: Quality Stroke Does the patient have a stroke diagnosis?: No
[2025-03-23 10:17] LABS: Troponin-I High Sensitivity 42.8 ng/L (<3.5-35.0)
[2025-03-23] MEDS: Ferrous Sulfate 324 MG TABLET.DR PO (10:36)
[2025-03-23] MEDS: 0.9 % Sodium Chloride Flush 3 ML SYRINGE IVFLUSH ×2 (10:36→16:05)
[2025-03-23] MEDS: Fluticasone/Vilanterol 200/25 BLST.W.DEV 1 PUFF INHALE (10:47)
--- NOTE | 2025-03-23 10:54 | P.PNNP_ITS ---
Subjective Subjective Date of Service: 03/23/25 Interval history: Patient here with generalized weakness, chills, sepsis likely UTI. Following for LUIS, hyponatremia. Patient reports he is feeling unwell today, pain at urostomy site, general malaise and some shortness of breath. He also states he is feeling very nauseous. Denies abdominal/flank pain, chest pain. Denies new concerns/complaints. Urostomy putting out over 1L urine last 24 hours. Physical Exam 2 Vital Signs: Vital Signs: Last Vital Signs Temp 97.3 F 03/23/25 07:10 Pulse 88 03/23/25 07:10 Resp 18 03/23/25 07:10 BP 135/64 03/23/25 07:10 Pulse Ox 99 03/23/25 07:10 O2 Del Method Room Air 03/23/25 07:10 BMI result Body Mass Index 27.1 Const: General: no acute distress, alert and awake Resp: Effort & Inspection: normal respiratory effort and able to speak in complete sentences Auscultation: clear to auscultation bilaterally Cardio: Rate: regular rate Rhythm: regular rhythm Heart sounds: S1 normal heart sound present and S2 normal heart sound present GI: Palpation (GI): Soft to palpation and Tenderness to palpation present (GI) (tender RLQ around urostomy site) Skin: Rashes: no rashes Extrem: General: No edema Objective Data Labs 03/23/25 07:00 03/23/25 07:00 Labs: Laboratory Results - last 24 hr 03/22/25 03/22/25 03/22/25 11:24 16:00 18:50 WBC RBC Hgb Hct MCV MCH MCHC RDW Plt Count MPV Immature Gran % (Auto) Neut % (Auto) Lymph % (Auto) [place] % (Auto) Eos % (Auto) Baso % (Auto) Lymph # (Auto) [place] # (Auto) Eos # (Auto) Baso # (Auto) Abs Immat Gran (auto) Absolute Neuts (auto) Absolute Nucleated RBC Nucleated RBC % (auto) Neutrophils % (Manual) Band Neutrophils % Lymphocytes % (Manual) Monocytes % (Manual) Abs Neuts (Manual) Lymphocytes # (Manual) Monocytes # (Manual) Platelet Estimate Plt Morphology Comment RBC Morphology Hypochromasia [place] Cells Sodium 125 L Potassium 4.9 Chloride 99 Carbon Dioxide 15 L Anion Gap 16 BUN 40 H Creatinine 2.87 H Estim Creat Clear Calc 18.1 Estimated GFR 21 POC Glucose 103 108 Random Glucose 107 Calcium 7.6 L Total Bilirubin AST ALT Alkaline Phosphatase Troponin I High Sens Total Protein Albumin Urine Osmolality Ur Random Sodium 03/22/25 03/22/25 03/23/25 20:13 20:35 07:00 WBC 16.2 H RBC 2.72 L Hgb 8.4 L Hct 25.3 L MCV 93.0 MCH 30.9 MCHC 33.2 RDW 17.0 H Plt Count 119 L D MPV 11.7 Immature Gran % (Auto) Cancelled Neut % (Auto) Cancelled Lymph % (Auto) Cancelled [place] % (Auto) Cancelled Eos % (Auto) Cancelled Baso % (Auto) Cancelled Lymph # (Auto) Cancelled [place] # (Auto) Cancelled Eos # (Auto) Cancelled Baso # (Auto) Cancelled Abs Immat Gran (auto) Cancelled Absolute Neuts (auto) Cancelled Absolute Nucleated RBC 0.000 Nucleated RBC % (auto) 0.0 Neutrophils % (Manual) 91 H Band Neutrophils % 3 Lymphocytes % (Manual) 1 L Monocytes % (Manual) 5 Abs Neuts (Manual) 15.2 H Lymphocytes # (Manual) 0.2 L Monocytes # (Manual) 0.8 Platelet Estimate DECREASED Plt Morphology Comment NORMAL RBC Morphology NOTED Hypochromasia 1+ (5-14) [place] Cells 1+ (0-2) Sodium 126 L Potassium 3.6 D Chloride 99 Carbon Dioxide 16 L Anion Gap 15 BUN 39 H Creatinine 2.69 H Estim Creat Clear Calc 19.3 Estimated GFR 23 POC Glucose 110 Random Glucose 115 Calcium 7.8 L Total Bilirubin 0.5 AST 41 H ALT 16 Alkaline Phosphatase 210 H Troponin I High Sens Total Protein 6.2 L Albumin 2.7 L Urine Osmolality 259 L Ur Random Sodium 35.0 03/23/25 03/23/25 07:24 09:32 WBC RBC Hgb Hct MCV MCH MCHC RDW Plt Count MPV Immature Gran % (Auto) Neut % (Auto) Lymph % (Auto) [place] % (Auto) Eos % (Auto) Baso % (Auto) Lymph # (Auto) [place] # (Auto) Eos # (Auto) Baso # (Auto) Abs Immat Gran (auto) Absolute Neuts (auto) Absolute Nucleated RBC Nucleated RBC % (auto) Neutrophils % (Manual) Band Neutrophils % Lymphocytes % (Manual) Monocytes % (Manual) Abs Neuts (Manual) Lymphocytes # (Manual) Monocytes # (Manual) Platelet Estimate Plt Morphology Comment RBC Morphology Hypochromasia [place] Cells Sodium Potassium Chloride Carbon Dioxide Anion Gap BUN Creatinine Estim Creat Clear Calc Estimated GFR POC Glucose 120 H Random Glucose Calcium Total Bilirubin AST ALT Alkaline Phosphatase Troponin I High Sens 42.8 H D Total Protein Albumin Urine Osmolality Ur Random Sodium Microbiology Microbiology Results: Microbiology 03/20/25 23:21 Blood - Venous Blood Culture - Final Escherichia coli 03/20/25 23:07 Blood - Venous Blood Culture - Preliminary Escherichia coli 03/20/25 Unknown Urine clean catch - Clean Catch Midstream Urine Culture - Final Procedures Date of Service Date of Service: 03/23/25 Assessment & Plan Assessment and plan (1) LUIS (acute kidney injury): Status: Acute (2) Sepsis: Status: Acute (3) Mass of left lung: Status: Acute (4) Hyponatremia: Status: Acute Plan LUIS secondary to obstruction. ATN from sepsis likely also contributing- stable. Recommend urology consult to address obstruction. Also recommend treatment of underlying infection. metabolic acidosis from sepsis hyponatremia- urine osm 259 and urine sodium 25 on 03/22 evening. Recommend oral free water restriction 1.2L/24 hours. Ok to continue NS IVF. Recommend daily electrolyte and renal function studies recommend close I&O monitoring, regular blood pressure checks- avoid hypotension recommend avoiding nephrotoxic agents Continue supportive care Discussed with Dr Nascimento. Time Spent With Patient Time: Total time managing care of this patient today ____ minutes. Progress Note: Quality Stroke Does the patient have a stroke diagnosis?: No
--- NOTE | 2025-03-23 10:55 | CA_ITS ---
Transthoracic Echocardiogram Patient (Last, First, Middle): Alec Agosto, Gender: Male Date of : 1950 Age: 75 Procedure Date: 03/23/2025 Procedure Type: Transthoracic Echocardiogram Location: [facility] [place] Height: 157.48 cm Weight: 67.13 kg BSA: 1.68 m2 Heart Rate: 84 bpm BP: 135 / 64 mmHg High Speed Warper Tender: SB/RC Referring MD: Yang BRITT Symptoms: Trop with delta, EKG changes Study Quality: Adequate ECG Rhythm: Sinus Conclusions: - Normal left ventricular cavity size. The left ventricular systolic function is hyperdynamic. The visually estimated ejection fraction is >70%. - Spectral Doppler is indicative of a restrictive filling pattern. Elevated filling pressures. - Normal right ventricular cavity size and systolic function. - There is a bicuspid aortic valve. There is moderate calcification of the aortic valve. There is moderate aortic valve stenosis. Findings Left Ventricle Normal left ventricular cavity size. The left ventricular systolic function is hyperdynamic. The visually estimated ejection fraction is >70%. There is no evidence of regional wall motion abnormalities. Abnormal diastolic function is noted. Spectral Doppler is indicative of a restrictive filling pattern. Elevated filling pressures. There is mild septal asymmetric hypertrophy. Right Ventricle Normal right ventricular cavity size and systolic function. Atria The left atrium is mildly dilated. The right atrium is normal in size. Aortic Valve There is a bicuspid aortic valve. There is moderate calcification of the aortic valve. There is moderate aortic valve stenosis. The peak aortic velocity is 3.22 m/s. The mean gradient is 27 mmHg. The aortic valve area is 1.09 cm2. There is no aortic valve regurgitation. Mitral Valve The mitral valve appears normal. There is mild mitral annular calcification. There is mild to moderate mitral valve regurgitation. There is no mitral valve stenosis. Pulmonic Valve Normal pulmonic valve structure and function. There is no pulmonic valve regurgitation. Tricuspid Valve Normal tricuspid valve structure. There is trace tricuspid valve regurgitation. The right ventricular systolic pressure is 49 mmHg. Normal right atrial pressure. Moderate pulmonary hypertension is present. Venous The inferior vena cava is normal in size and collapses greater than 50% with inspiration. Pericardium/Pleural There is no evidence of pericardial effusion. Prior Study Comparison No prior study available for comparison. Measurements 2D Linear Measurements IVSd: 1.22 0.6-0.9/0.6-1.0 cm LVIDd: 3.83 3.9-5.3/4.2-5.9 cm LVIDd Index: 2.28 2.4-3.2/2.2-3.1 cm/m2 LVIDs: 2.23 2.0-3.6 cm LVPWd: 0.65 0.7-1.1 cm Ao Root: 2.90 2.1-3.5 cm LA Diam: 3.90 2.7-3.8/3.0-4.0 cm LAIDs Index: 2.32 1.5-2.3 cm/m2 LV Mass: 134.17 67-162/88-224 g LV Mass Index: 79.86 43-95/49-115 g/m2 LVOT Diam: 1.90 3.0+(-)1.3 cm 2D Systolic Function EF 4C: 53.80 >55% EF 2C: 58.50 >55% EF BiP: 57.10 >55% Mitral Valve MV Pk E: 1.45 MV PK A: 0.43 MV Decel Time: 202.00 E/A: 3.40 E'Lateral: 8.27 E'Medial: 6.64 E/E' Med: 21.80 E/E' Lat: 17.50 PHT: 59.00 MVA PHT: 3.73 Decel [place]: 7.21 Aortic Valve AoV Pk Damien: 3.22 AoV Mn Damien: 2.46 AoV VTI: 0.69 AoV Pk Grad: 41.00 Aov Mn Grad: 27.00 GARY Cont.VTI: 1.09 LVOT LVOT Pk Damien: 1.33 LVOT Mn Damien: 0.93 LVOT VTI: 0.27 LVOT Pk Grad: 7.00 LVOT Mn Grad: 4.00 LVOT Diam: 1.90 LVOT Area: 2.84 Diastolic Function MV Pk E: 1.45 MV Pk A: 0.43 E/A: 3.40 E'Medial: 6.64 E/E' Med: 21.80 E' Laterial: 8.27 E/E' Lat: 17.50 Right Ventricle TAPSE (mm): 19.50 TVS' Damien: 12.30 Tricuspid Valve TR Pk Damien: 3.19 TR Pk Grad: 41.00 RA Press: 8.00 RVSP: 49.00 Great Vessels Aorta Ao Root-2D: 2.90 2.0-3.7 cm Sinus of Valsalva: 2.90 2.0-3.5 cm Ao Asc: 3.00 2.1-3.4 cm Pulmonary Veins Pulm Vein S/D 0.60 Pulmonary Valve PV Pk Damien: 0.91 Peak PV Grad: 3.00 Updated in Other Vendor System with Status of Final Marv Aguiar MD electronically signed on 03/23/2025 11:13:53 PM with status of Final
[2025-03-23 11:27] LABS: Glucose, Whole Blood 365 mg/dL (60-115)
--- NOTE | 2025-03-23 12:09 | P.CONGS_ITS ---
History of Present Illness Consult details Consult date: 03/23/25 Narrative: 74-year-old male with history of diabetes, hypertension, and has an ileal reservoir after cystectomy for bladder cancer in 2017 admitted 2 days ago because of fever. He also had complained of constipation He had recently been discharged from the hospital a few days ago because of bleeding from the ileal reservoir. He had undergone a procedure with Dr. Narayan to control this with a [id number] stitch in the OR He had a CAT scan done on admission 2 days ago which did not suggest any colonic obstruction. He did have hydronephrosis bilaterally along with a distended ileal conduit He does state that he had passed flatus last night. He denies significant abdominal pain but does feel bloated I was consulted because of a KUB this morning suggesting colonic ileus. He looks well overall He he does not seem to be very active at home. He has minimal activity in view of his recent illness. He is also being treated for sepsis and acute kidney injury. His imaging studies suggest a pneumonia. He also has urosepsis with positive urine test. Review of Systems 2 Constitutional: Constitutional: Reports fever(s) Cardiovascular: Cardiovascular: Denies chest pain, Denies chest pain at rest and Reports dyspnea Respiratory: Respiratory: Reports dyspnea Gastrointestinal: Gastrointestinal: Reports bloating and Denies vomiting Genitourinary: Comments: Has a urostomy PMFSH Past Medical History Medical History History of bladder cancer Abdominal distention Cirrhosis of liver Complication of urostomy HTN (hypertension) Acute hyponatremia Hydronephrosis Bladder cancer Asthma Diabetes Bladder cancer Incomplete emptying of bladder due to benign prostatic hyperplasia Complicated urinary tract infection Surgical History Surgical History History of surgery History of ileal conduit Social History Social History Household Members: Family Housing: House Are you a primary child care centre manager to a significant other at home: No Do you presently have visiting nurse or other home services: Yes Alcohol intake: never Comment: bedside Patient Tobacco Use Status: Never used Tobacco Advance Directives Date on File: 03/12/25 service: No Current occupational status: retired Meds Allergies Allergy/AdvReac Type Severity Reaction Status Date / Time aspirin Allergy Unknown Verified 03/20/25 23:11 Beta-Blockers AdvReac Unknown Verified 03/20/25 23:11 (Beta-Adrenergic Bloc ibuprofen AdvReac Unknown Verified 03/20/25 23:11 Active Medications: Current Medications Acetaminophen (Acetaminophen 325 Mg Tablet) 975 mg PO Q6H PRN PRN Reason: Pain, Mild 1-3,fever,headache Last Admin: 03/21/25 08:15 Dose: 975 mg Bisacodyl (Bisacodyl 5 Mg Tablet.) 5 mg PO BEDTIME [facility] Last Admin: 03/22/25 20:01 Dose: 5 mg Calcium Carbonate (Calcium Carbonate 750 Mg Tab.Chew) 750 mg PO Q4H PRN PRN Reason: Heartburn Last Admin: 03/23/25 05:11 Dose: 750 mg Ceftriaxone Sodium (Ceftriaxone Sodium 2 Gm Vial) 2 gm IVPUSH Q24H [facility] Last Admin: 03/23/25 10:36 Dose: 2 gm Dextrose (Dextrose 50 % 25 Gm/50 Ml Syringe) 25 gm IVPUSH Q15M PRN; Protocol PRN Reason: per Hypoglycemia Standing Ord. Ferrous Sulfate (Ferrous Sulfate 324 Mg Tablet.) 324 mg PO DAILY [facility] Last Admin: 03/23/25 10:36 Dose: 324 mg Fluticasone/Vilanterol (Fluticasone/Vilanterol 200/25 Blst.W.Dev) 1 puff INHALE RDAILY [facility] Last Admin: 03/23/25 10:47 Dose: 1 puff Folic Acid (Folic Acid 1 Mg Tablet) 1 mg PO DAILY [facility] Last Admin: 03/23/25 10:36 Dose: 1 mg Glucose (Glucose Gel 15 Gm Gel..Gram.) 15 gm PO Q15M PRN; Protocol PRN Reason: per Hypoglycemia Standing Ord. Sodium Chloride (Ns) 1,000 mls @ 80 mls/hr IVCONT .[id number] [facility] Last Admin: 03/23/25 01:16 Dose: 80 mls/hr Insulin Human Lispro (Insulin Lispro 100 Unit/Ml 3 Ml Vial) 0 unit SUBCUT QIDACHS [facility]; Protocol Last Admin: 03/23/25 11:42 Dose: 10 unit Magnesium Hydroxide (Milk Of Magnesia 30 Ml Oral.Susp) 30 ml PO DAILY PRN PRN Reason: Constipation Last Admin: 03/21/25 20:48 Dose: 30 ml Melatonin (Melatonin 3 Mg Tablet) 6 mg PO BEDTIME PRN PRN Reason: Insomnia Last Admin: 03/22/25 23:43 Dose: 6 mg Montelukast Sodium (Montelukast Sodium 10 Mg Tablet) 10 mg PO DAILY STEVEN Last Admin: 03/23/25 10:35 Dose: 10 mg Ondansetron HCl (Ondansetron Hcl 4 Mg/2 Ml Vial) 4 mg IVPUSH Q8H PRN PRN Reason: Nausea and Vomiting Last Admin: 03/23/25 10:36 Dose: 4 mg Oxycodone HCl (Oxycodone Hcl Immed Release 5 Mg Tablet) 5 mg PO Q6H PRN PRN Reason: Pain, Severe (Pain Scale 7-10) Last Admin: 03/23/25 02:08 Dose: 5 mg Prochlorperazine Edisylate (Prochlorperazine Edisylate 10 Mg/2 Ml Vial) 5 mg IV Q6H PRN PRN Reason: Nausea and Vomiting Last Admin: 03/22/25 20:01 Dose: 5 mg Simethicone (Simethicone 80 Mg Tab.Chew) 80 mg PO QIDWMHS PRN PRN Reason: Gas Last Admin: 03/23/25 10:36 Dose: 80 mg Sodium Chloride (0.9 % Sodium Chloride Flush 3 Ml Syringe) 3 ml IVFLUSH QSHIFT [facility] Last Admin: 03/23/25 10:36 Dose: 3 ml Tramadol HCl (Tramadol Hcl 50 Mg Tablet) 50 mg PO Q6H PRN PRN Reason: Pain, Moderate(Pain Scale 4-6) Last Admin: 03/23/25 10:36 Dose: 50 mg Home Medications ?Medication ?Instructions ?Recorded ?Confirmed ?Last Taken ?Type blood sugar diagnostic (FreeStyle #10 ea 04/18/2112/09 Unknown History Lite Strips) montelukast 10 mg tablet 10 mg PO DAILY 04/18/2103/1003/20/25 History lancets 28 gauge (FreeStyle #100 ea 06/24/21 01/05/24 Unknown History Lancets) folic acid 1 mg tablet 1 mg PO DAILY 12/10/2103/2103/20/25 History albuterol sulfate 90 mcg/actuation 2 puff PO QID PRN S hortness Of 02/08/22 03/21/25 Unknown History aerosol inhaler Breath atorvastatin 20 mg tablet 20 mg PO BEDTIME 03/01/2503/19/25 History ferrous sulfate 325 mg (65 mg 325 mg PO DAILY 03/01/25 03/21/25 03/20/25 History iron) tablet (iron) metformin 500 mg tablet 500 mg PO BID 03/01/2503/2103/20/25 History sitagliptin phosphate 50 mg tablet 50 mg PO DAILY 02/0803/21/25 03/20/25 History (Januvia) telmisartan 20 mg tablet 20 mg PO DAILY 03/01/2503/1003/20/25 History bisacodyl 5 mg tablet,delayed 5 mg PO DAILY constipati on 03/21/25 03/21/25 03/20/25 History release (Dulcolax (bisacodyl)) fluticasone 232 mcg-salmeterol 14 1 inh inhalation BID 03/21/25 03/21/25 03/20/25 History mcg/actuation breath activated powdr Physical Exam 2 Vital Signs: Vital Signs: Last Vital Signs Temp 97.3 F 03/23/25 07:10 Pulse 88 03/23/25 07:10 Resp 18 03/23/25 07:10 BP 135/64 03/23/25 07:10 Pulse Ox 99 03/23/25 07:10 O2 Del Method Room Air 03/23/25 07:10 BMI result Body Mass Index 27.1 Const: Other: Appears comfortable, communicative General: no acute distress Resp: Effort & Inspection: normal respiratory effort GI: Other: Soft although with some distention, no guarding, no rebound, no tenderness; urostomy and ileal conduit in place with good urine out Results Labs 03/25/25 06:41 03/27/25 06:58 Labs: Abnormal lab results 03/22/25 03/22/25 03/23/25 Range/Units 18:50 20:13 07:00 WBC 16.2 H (4.8-10.8) X10*3/uL RBC 2.72 L (4.60-5.80) X10*6/uL Hgb 8.4 L (14.0-18.0) g/dl Hct 25.3 L (42.0-52.0) % RDW 17.0 H (11.0-16.0) % Plt Count 119 L D (160-400) X10*3/uL Neutrophils % (Manual) 91 H (45-73) % Lymphocytes % (Manual) 1 L (20-40) % Abs Neuts (Manual) 15.2 H (2.0-8.3) X10*3/uL Lymphocytes # (Manual) 0.2 L (1.2-4.9) X10*3/uL Sodium 125 L 126 L (135-145) mmol/L Carbon Dioxide 15 L 16 L (22-29) mmol/L BUN 40 H 39 H (9-16) mg/dL Creatinine 2.87 H 2.69 H (0.5-1.4) mg/dL POC Glucose (60-115) mg/dL Calcium 7.6 L 7.8 L (8.4-10.2) mg/dL AST 41 H (5-37) U/L Alkaline Phosphatase 210 H (39-117) U/L Troponin I High Sens (<3.5-35.0) ng/L Total Protein 6.2 L (6.5-8.0) g/dL Albumin 2.7 L (3.5-5.0) g/dL Urine Osmolality 259 L (373-1093) mosm/kg 03/23/25 03/23/25 03/23/25 Range/Units 07:24 09:32 11:22 WBC (4.8-10.8) X10*3/uL RBC (4.60-5.80) X10*6/uL Hgb (14.0-18.0) g/dl Hct (42.0-52.0) % RDW (11.0-16.0) % Plt Count (160-400) X10*3/uL Neutrophils % (Manual) (45-73) % Lymphocytes % (Manual) (20-40) % Abs Neuts (Manual) (2.0-8.3) X10*3/uL Lymphocytes # (Manual) (1.2-4.9) X10*3/uL Sodium (135-145) mmol/L Carbon Dioxide (22-29) mmol/L BUN (9-16) mg/dL Creatinine (0.5-1.4) mg/dL POC Glucose 120 H 365 H* (60-115) mg/dL Calcium (8.4-10.2) mg/dL AST (5-37) U/L Alkaline Phosphatase (39-117) U/L Troponin I High Sens 42.8 H D (<3.5-35.0) ng/L Total Protein (6.5-8.0) g/dL Albumin (3.5-5.0) g/dL Urine Osmolality (373-1093) mosm/kg Short CBC 03/23/25 Range/Units 07:00 WBC 16.2 H (4.8-10.8) X10*3/uL Hgb 8.4 L (14.0-18.0) g/dl Hct 25.3 L (42.0-52.0) % Plt Count 119 L D (160-400) X10*3/uL BMP 03/22/25 03/23/25 18:50 07:00 Sodium 125 L 126 L Potassium 4.9 3.6 D Chloride 99 99 Carbon Dioxide 15 L 16 L BUN 40 H 39 H Creatinine 2.87 H 2.69 H Calcium 7.6 L 7.8 L Liver Function 03/23/25 Range/Units 07:00 Total Bilirubin 0.5 (0.0-1.0) mg/dL AST 41 H (5-37) U/L ALT 16 (0-40) U/L Alkaline Phosphatase 210 H (39-117) U/L Albumin 2.7 L (3.5-5.0) g/dL Urine 03/20/25 Range/Units 23:21 Urine Color [place] A Urine Appearance Turbid Urine pH 7.0 (5.0-9.0) Ur Specific [place] 1.015 (1.005-1.025) Urine Protein 300 (3+) H (Neg-Trace) mg/dL Urine Glucose (UA) Negative (Negative) mg/dL All other labs normal. Imaging Abdomen CT scan report/results: report reviewed and image reviewed CT scan - pelvis: report reviewed and image reviewed Assessment and Plan (1) Abdominal distention: Status: Acute His KUB today show gas-filled colon. His previous CAT scan from 2 days ago does not suggest any colonic obstruction His abdomen is soft and benign. He likely has some degree of colonic ileus from being acutely ill along with minimal activity level. He likely has an imbalance of his sympathetic/parasympathetic stimulation of the GI tract in view of his ongoing acute issues. I would recommend trying to get him to ambulate more. His underlying acute medical issues should be managed. All electrolyte abnormalities especially potassium should be monitored and corrected. He can have clear liquids and this can be slowly advanced. His abdominal exam is otherwise very benign. It may be best to consider a colonoscopy down the line if he is stable and well enough medically as he says that he has never had any colonoscopy in the future Procedures Date of Service Date of Service: 03/30/25
--- NOTE | 2025-03-23 12:13 | HO.PM.IMPN ---
Subjective Subjective Date of Service: 03/23/25 Interval History: Cather removed from stoma yesterday Nausea and vomiting overnight, unable to tolerate much by mouth Abdominal bloating and gas, mild left-sided abdominal tenderness Also complains of some nonradiating chest ?heaviness? No diaphoresis Reports had normal bowel movement yesterday Review of Systems Review of Systems: Yes all other systems are reviewed and are negative Physical Exam Exam: Exam: General: AOx3, no acute distress Resp: CTA bilaterally CVS: S1, S2, RRR GI: +BS, mild distention, mild left-sided tenderness. Tympanic to percussion. Urostomy in place with clear urine, good output Skin: Warm, dry Neuro: Cranial nerves II-XII grossly intact bilaterally. Motor grossly intact bilaterally Extremities: No edema Psych: Appropriate affect Vital Signs: Vital Signs: Last Vital Signs Temp 97.3 F 03/23/25 07:10 Pulse 88 03/23/25 07:10 Resp 18 03/23/25 07:10 BP 135/64 03/23/25 07:10 Pulse Ox 99 03/23/25 07:10 O2 Del Method Room Air 03/23/25 07:10 BMI result Body Mass Index 27.1 Objective Data Active Medications Acetaminophen (Acetaminophen 325 Mg Tablet) 975 mg PO Q6H PRN PRN Reason: Pain, Mild 1-3,fever,headache Last Admin: 03/21/25 08:15 Dose: 975 mg Documented By: LINDA Bisacodyl (Bisacodyl 5 Mg Tablet.) 5 mg PO BEDTIME [facility] Last Admin: 03/22/25 20:01 Dose: 5 mg Documented By: DONNA Calcium Carbonate (Calcium Carbonate 750 Mg Tab.Chew) 750 mg PO Q4H PRN PRN Reason: Heartburn Last Admin: 03/23/25 05:11 Dose: 750 mg Documented By: DONNA Ceftriaxone Sodium (Ceftriaxone Sodium 2 Gm Vial) 2 gm IVPUSH Q24H [facility] Last Admin: 03/23/25 10:36 Dose: 2 gm Documented By: GALLO Dextrose (Dextrose 50 % 25 Gm/50 Ml Syringe) 25 gm IVPUSH Q15M PRN; Protocol PRN Reason: per Hypoglycemia Standing Ord. Ferrous Sulfate (Ferrous Sulfate 324 Mg Tablet.) 324 mg PO DAILY [facility] Last Admin: 03/23/25 10:36 Dose: 324 mg Documented By: GALLO Fluticasone/Vilanterol (Fluticasone/Vilanterol 200/25 Blst.W.Dev) 1 puff INHALE RDAILY [facility] Last Admin: 03/23/25 10:47 Dose: 1 puff Documented By: GALLO Folic Acid (Folic Acid 1 Mg Tablet) 1 mg PO DAILY [facility] Last Admin: 03/23/25 10:36 Dose: 1 mg Documented By: GALLO Glucose (Glucose Gel 15 Gm Gel..Gram.) 15 gm PO Q15M PRN; Protocol PRN Reason: per Hypoglycemia Standing Ord. Sodium Chloride (Ns) 1,000 mls @ 80 mls/hr IVCONT .[id number] [facility] Last Admin: 03/23/25 01:16 Dose: 80 mls/hr Documented By: DONNA Insulin Human Lispro (Insulin Lispro 100 Unit/Ml 3 Ml Vial) 0 unit SUBCUT QIDACHS [facility]; Protocol Last Admin: 03/23/25 11:42 Dose: 10 unit Documented By: GALLO Comments: MD notified about POC 365; MD order to give 10 units per sliding scale Magnesium Hydroxide (Milk Of Magnesia 30 Ml Oral.Susp) 30 ml PO DAILY PRN PRN Reason: Constipation Last Admin: 03/21/25 20:48 Dose: 30 ml Documented By: IGOR Melatonin (Melatonin 3 Mg Tablet) 6 mg PO BEDTIME PRN PRN Reason: Insomnia Last Admin: 03/22/25 23:43 Dose: 6 mg Documented By: DONNA Montelukast Sodium (Montelukast Sodium 10 Mg Tablet) 10 mg PO DAILY [facility] Last Admin: 03/23/25 10:35 Dose: 10 mg Documented By: GALLO Ondansetron HCl (Ondansetron Hcl 4 Mg/2 Ml Vial) 4 mg IVPUSH Q8H PRN PRN Reason: Nausea and Vomiting Last Admin: 03/23/25 10:36 Dose: 4 mg Documented By: GALLO Oxycodone HCl (Oxycodone Hcl Immed Release 5 Mg Tablet) 5 mg PO Q6H PRN PRN Reason: Pain, Severe (Pain Scale 7-10) Last Admin: 03/23/25 02:08 Dose: 5 mg Documented By: DONNA Prochlorperazine Edisylate (Prochlorperazine Edisylate 10 Mg/2 Ml Vial) 5 mg IV Q6H PRN PRN Reason: Nausea and Vomiting Last Admin: 03/22/25 20:01 Dose: 5 mg Documented By: DONNA Simethicone (Simethicone 80 Mg Tab.Chew) 80 mg PO QIDWMHS PRN PRN Reason: Gas Last Admin: 03/23/25 10:36 Dose: 80 mg Documented By: GALLO Sodium Chloride (0.9 % Sodium Chloride Flush 3 Ml Syringe) 3 ml IVFLUSH QSHIFT [facility]EV[facility] Last Admin: 03/23/25 10:36 Dose: 3 ml Documented By: GALLO Tramadol HCl (Tramadol Hcl 50 Mg Tablet) 50 mg PO Q6H PRN PRN Reason: Pain, Moderate(Pain Scale 4-6) Last Admin: 03/23/25 10:36 Dose: 50 mg Documented By: GALLO Labs 03/23/25 07:00 03/23/25 07:00 Labs: Laboratory Results - last 24 hr 03/22/25 03/22/25 03/22/25 16:00 18:50 20:13 MCV MCH MCHC RDW Plt Count MPV Immature Gran % (Auto) Neut % (Auto) Lymph % (Auto) [place] % (Auto) Eos % (Auto) Baso % (Auto) Lymph # (Auto) [place] # (Auto) Eos # (Auto) Baso # (Auto) Abs Immat Gran (auto) Absolute Neuts (auto) Absolute Nucleated RBC Nucleated RBC % (auto) Neutrophils % (Manual) Band Neutrophils % Lymphocytes % (Manual) Monocytes % (Manual) Abs Neuts (Manual) Lymphocytes # (Manual) Monocytes # (Manual) Platelet Estimate Plt Morphology Comment RBC Morphology Hypochromasia Demetrice Cells Anion Gap 16 Estim Creat Clear Calc 18.1 Estimated GFR 21 POC Glucose 108 Random Glucose 107 Calcium 7.6 L Total Bilirubin AST ALT Alkaline Phosphatase Total Protein Albumin Urine Osmolality 259 L Ur Random Sodium 35.0 03/22/25 03/23/25 03/23/25 20:35 07:00 07:24 MCV 93.0 MCH 30.9 MCHC 33.2 RDW 17.0 H Plt Count 119 L D MPV 11.7 Immature Gran % (Auto) Cancelled Neut % (Auto) Cancelled Lymph % (Auto) Cancelled [place] % (Auto) Cancelled Eos % (Auto) Cancelled Baso % (Auto) Cancelled Lymph # (Auto) Cancelled [place] # (Auto) Cancelled Eos # (Auto) Cancelled Baso # (Auto) Cancelled Abs Immat Gran (auto) Cancelled Absolute Neuts (auto) Cancelled Absolute Nucleated RBC 0.000 Nucleated RBC % (auto) 0.0 Neutrophils % (Manual) 91 H Band Neutrophils % 3 Lymphocytes % (Manual) 1 L Monocytes % (Manual) 5 Abs Neuts (Manual) 15.2 H Lymphocytes # (Manual) 0.2 L Monocytes # (Manual) 0.8 Platelet Estimate DECREASED Plt Morphology Comment NORMAL RBC Morphology NOTED Hypochromasia 1+ (5-14) [place] Cells 1+ (0-2) Anion Gap 15 Estim Creat Clear Calc 19.3 Estimated GFR 23 POC Glucose 110 120 H Random Glucose 115 Calcium 7.8 L Total Bilirubin 0.5 AST 41 H ALT 16 Alkaline Phosphatase 210 H Total Protein 6.2 L Albumin 2.7 L Urine Osmolality Ur Random Sodium 03/23/25 11:22 MCV MCH MCHC RDW Plt Count MPV Immature Gran % (Auto) Neut % (Auto) Lymph % (Auto) [place] % (Auto) Eos % (Auto) Baso % (Auto) Lymph # (Auto) [place] # (Auto) Eos # (Auto) Baso # (Auto) Abs Immat Gran (auto) Absolute Neuts (auto) Absolute Nucleated RBC Nucleated RBC % (auto) Neutrophils % (Manual) Band Neutrophils % Lymphocytes % (Manual) Monocytes % (Manual) Abs Neuts (Manual) Lymphocytes # (Manual) Monocytes # (Manual) Platelet Estimate Plt Morphology Comment RBC Morphology Hypochromasia [place]etrice Cells Anion Gap Estim Creat Clear Calc Estimated GFR POC Glucose 365 H* Random Glucose Calcium Total Bilirubin AST ALT Alkaline Phosphatase Total Protein Albumin Urine Osmolality Ur Random Sodium Microbiology Microbiology Results: Microbiology 03/20/25 23:21 Blood Culture - Final Blood - Venous Escherichia coli 03/20/25 23:07 Blood Culture - Preliminary Blood - Venous Escherichia coli 03/20/25 Unknown Urine Culture - Final Urine clean catch - Clean Catch Midstream Assessment and Plan (1) LUIS (acute kidney injury): Status: Acute (2) Pyelonephritis: Status: Acute Plan 74-year-old male with a past medical history significant for mild intermittent asthma, type 2 diabetes, HLD, HTN, history bladder cancer s/p cystectomy and ileal loop urostomy, with recent admission for urostomy bleed requiring blood transfusion and new diagnosis of liver cirrhosis ?SCHNEIDER, discharged 03/17/25, who presented to the ED due to 2 days of low back pain with fever up to 103.3 and decreased output in his urostomy bag/constipation. severe sepsis secondary to pyelonephritis and bacteremia with urostomy complication ua : pyuria/bacteruria /hematuria leucocytosis improving, tachcardia/tachypenia improving ua positive, blood cultures x2 positive for e. coli sensitive to ceftriaxone continue ceftriaxone, day 3 LUIS similar acute lactic acidosis improving, no further trending,bicarb also flactautes abdominopelvic CT with distended ileal conduit and bilateral hydroureteronephrosis, etc. dysfunction of the Judge catheter located within the conduit at the ostomy site. Patchy opacity of the left lower lobe, this could be aspiration or consolidation, follow up to clearing would be helpful. Small amount of ascites and effusions of uncertain etiology. This could be related to the urinary process, 3rd spacing of fluid volume overload, or sequela of portal hypertension. Pt has received treatment for hyperkalemia, also IV fluids Urology following, removed catheter from stoma on 03/22 Continue IV fluid, antiemetics, pain management. ?LBO Pt with N/V, abd bloating and left-sided tenderness KUB concerning for distal large intestine obstruction vs pseudo-obstruction [place] syndrome General surgery consult, recommend ambulation; no need for repeat CT Will place on clear liquid diet, encourage ambulation/OOB Monitor closely Chest heaviness EKG showing changes in septal leads Troponin 42.8 (increased from 19.0 the day prior) Cardiology consult, echocardiogram, repeat troponin Monitor on telemetry LUIS:LUIS secondary to obstruction. ATN from sepsis likely also contributing - avoid nephrotoxins when possible - monitor BMP, ivf - nephrology following - follow BMP Hyponatremia, metabolic acidosis - IV fluids as above - 1.2L fluid restriction - nephrology following Chronic anemia - stable, around baseline - no need for blood transfusion at this time - monitor CBC Elevated LFTs, likely secondary to sepsis patient also undergoing workup with GI outpatient for ?SCHNEIDER cirrhosis continue outpatient follow-up Mild intermittent asthma, no acute exacerbation- LLL infiltrate on A/P CT, pt asx continue home meds T2DM - sliding scale insulin - diabetic diet HLD - continue home meds HTN - normotensive, resume home meds when appropriate Full code VTE prophylaxis: Pneumoboots due to gross hematuria and recent admission with urostomy bleeding requiring blood transfusion Patient with severe sepsis secondary to UTI, complicated by urostomy tube displacement, requiring admission for at least 2 midnights stay for IV antibiotics and urological consultation. Quality Stroke Does the patient have a stroke diagnosis?: No VTE Prior VTE?: No VTE Risk Level:: Medical - moderate - high VTE Device Contraindication: N/A - Device Ordered VTE Drug Contraindication: Treatment Not Indicated
[2025-03-23 13:02] LABS: Troponin-I High Sensitivity 36.7 ng/L (<3.5-35.0)
[2025-03-23] MEDS: Glucose Gel 15 GM GEL..GRAM. PO ×2 (15:42→15:56)
[2025-03-23 15:55] VITALS: BP 128/60; PULSE 77; RESP 20; TEMP 36.3; O2SAT 98
--- NOTE | 2025-03-23 16:01 | PM.CNCAR ---
History of Present Illness History of Present Illness Date of Service: 03/23/25 Requesting physician: Yang Pierre Chief complaint: elevated Troponins Narrative: [age] year gentleman who we have been asked to see for elevated troponin levels. He has history of bladder cancer status post cystectomy and ileal loop urostomy. He also had recent diagnosis of cirrhosis of liver possibly related to SCHNEIDER. He presented to [place] with low back pain and fever and decreased output from his urostomy bag. He was treated for severe sepsis secondary to pyelonephritis and bacteremia. He also has abdominal distention for concern for pseudo obstruction versus large bowel obstruction currently. He has no pain in the abdomen and is saying that he is passing some gas. His high sensitivity troponin levels were elevated from 19-42.8. He is denying any chest discomfort. He has no history of coronary disease. He did have history of hypertension and diabetes. [facility] Past Medical History Medical History (Updated 03/23/25 @ 16:04 by Marv Aguiar MD) Abdominal distention Cirrhosis of liver Complication of urostomy HTN (hypertension) Acute hyponatremia Hydronephrosis Bladder cancer Asthma Diabetes Bladder cancer Incomplete emptying of bladder due to benign prostatic hyperplasia Complicated urinary tract infection Surgical History Surgical History History of surgery History of ileal conduit Social History Social History Household Members: Family Housing: House Are you a primary ocular care technologist to a significant other at home: No Do you presently have visiting nurse or other home services: Yes Alcohol intake: never Comment: bedside Patient Tobacco Use Status: Never used Tobacco Advance Directives Date on File: 03/12/25 service: No Current occupational status: retired Meds Allergies Allergy/AdvReac Type Severity Reaction Status Date / Time aspirin Allergy Unknown Verified 03/20/25 23:11 Beta-Blockers AdvReac Unknown Verified 03/20/25 23:11 (Beta-Adrenergic Bloc ibuprofen AdvReac Unknown Verified 03/20/25 23:11 Active Medications: Current Medications Acetaminophen (Acetaminophen 325 Mg Tablet) 975 mg PO Q6H PRN PRN Reason: Pain, Mild 1-3,fever,headache Last Admin: 03/21/25 08:15 Dose: 975 mg Bisacodyl (Bisacodyl 5 Mg Tablet.Dr) 5 mg PO BEDTIME [facility] Last Admin: 03/22/25 20:01 Dose: 5 mg Calcium Carbonate (Calcium Carbonate 750 Mg Tab.Chew) 750 mg PO Q4H PRN PRN Reason: Heartburn Last Admin: 03/23/25 05:11 Dose: 750 mg Ceftriaxone Sodium (Ceftriaxone Sodium 2 Gm Vial) 2 gm IVPUSH Q24H [facility] Last Admin: 03/23/25 10:36 Dose: 2 gm Dextrose (Dextrose 50 % 25 Gm/50 Ml Syringe) 25 gm IVPUSH Q15M PRN; Protocol PRN Reason: per Hypoglycemia Standing Ord. Ferrous Sulfate (Ferrous Sulfate 324 Mg Tablet.Dr) 324 mg PO DAILY [facility] Last Admin: 03/23/25 10:36 Dose: 324 mg Fluticasone/Vilanterol (Fluticasone/Vilanterol 200/25 Blst.W.Dev) 1 puff INHALE RDAILY [facility] Last Admin: 03/23/25 10:47 Dose: 1 puff Folic Acid (Folic Acid 1 Mg Tablet) 1 mg PO DAILY [facility] Last Admin: 03/23/25 10:36 Dose: 1 mg Glucose (Glucose Gel 15 Gm Gel..Gram.) 15 gm PO Q15M PRN; Protocol PRN Reason: per Hypoglycemia Standing Ord. Last Admin: 03/23/25 15:56 Dose: 15 gm Sodium Chloride (Ns) 1,000 mls @ 80 mls/hr IVCONT .[id number] [facility] Last Admin: 03/23/25 13:01 Dose: 80 mls/hr Insulin Human Lispro (Insulin Lispro 100 Unit/Ml 3 Ml Vial) 0 unit SUBCUT QIDACHS [facility]; Protocol Last Admin: 03/23/25 11:42 Dose: 10 unit Magnesium Hydroxide (Milk Of Magnesia 30 Ml Oral.Susp) 30 ml PO DAILY PRN PRN Reason: Constipation Last Admin: 03/21/25 20:48 Dose: 30 ml Melatonin (Melatonin 3 Mg Tablet) 6 mg PO BEDTIME PRN PRN Reason: Insomnia Last Admin: 03/22/25 23:43 Dose: 6 mg Montelukast Sodium (Montelukast Sodium 10 Mg Tablet) 10 mg PO DAILY [facility] Last Admin: 03/23/25 10:35 Dose: 10 mg Ondansetron HCl (Ondansetron Hcl 4 Mg/2 Ml Vial) 4 mg IVPUSH Q8H PRN PRN Reason: Nausea and Vomiting Last Admin: 03/23/25 10:36 Dose: 4 mg Oxycodone HCl (Oxycodone Hcl Immed Release 5 Mg Tablet) 5 mg PO Q6H PRN PRN Reason: Pain, Severe (Pain Scale 7-10) Last Admin: 03/23/25 02:08 Dose: 5 mg Prochlorperazine Edisylate (Prochlorperazine Edisylate 10 Mg/2 Ml Vial) 5 mg IV Q6H PRN PRN Reason: Nausea and Vomiting Last Admin: 03/22/25 20:01 Dose: 5 mg Simethicone (Simethicone 80 Mg Tab.Chew) 80 mg PO QIDWMHS PRN PRN Reason: Gas Last Admin: 03/23/25 10:36 Dose: 80 mg Sodium Chloride (0.9 % Sodium Chloride Flush 3 Ml Syringe) [facility] Admin: 03/23/25 10:36 Dose: 3 ml Tramadol HCl (Tramadol Hcl 50 Mg Tablet) 50 mg PO Q6H PRN PRN Reason: Pain, Moderate(Pain Scale 4-6) Last Admin: 03/23/25 10:36 Dose: 50 mg Home Medications ?Medication ?Instructions ?Recorded ?Confirmed ?Last Taken ?Type blood sugar diagnostic (FreeStyle #10 ea 04/18/21 01/05/24 Unknown History Lite Strips) montelukast 10 mg tablet 10 mg PO DAILY 04/18/21 03/21/25 03/20/25 History lancets 28 gauge (FreeStyle #100 ea 06/24/21 01/05/24 Unknown History Lancets) folic acid 1 mg tablet 1 mg PO DAILY 12/10/21 03/21/25 03/20/25 History albuterol sulfate 90 mcg/actuation 2 puff PO QID PRN Shortness Of 02/08/22 03/21/25 Unknown History aerosol inhaler Breath atorvastatin 20 mg tablet 20 mg PO BEDTIME 03/01/25 03/21/25 03/19/25 History ferrous sulfate 325 mg (65 mg 325 mg PO DAILY 03/01/25 03/21/25 03/20/25 History iron) tablet (iron) metformin 500 mg tablet 500 mg PO BID 03/01/25 03/21/25 03/20/25 History sitagliptin phosphate 50 mg tablet 50 mg PO DAILY 03/01/25 03/21/25 03/20/25 History (Januvia) telmisartan 20 mg tablet 20 mg PO DAILY 03/01/25 03/21/25 03/20/25 History bisacodyl 5 mg tablet,delayed 5 mg PO DAILY constipation 03/21/25 03/21/25 03/20/25 History release (Dulcolax (bisacodyl)) fluticasone 232 mcg-salmeterol 14 1 inh inhalation BID 03/21/25 03/21/25 03/20/25 History mcg/actuation breath activated powdr Physical Exam Vital Signs: Vital Signs: Last Vital Signs Temp 97.4 F 03/23/25 15:55 Pulse 77 03/23/25 15:55 Resp 20 03/23/25 15:55 BP 128/60 03/23/25 15:55 Pulse Ox 98 03/23/25 15:55 O2 Del Method Room Air 03/23/25 15:55 BMI result Body Mass Index 27.1 GENERAL APPEARANCE: in no acute distress, pleasant. NECK: no carotid bruit, no jugular venous distention. SKIN: no suspicious lesions, warm and dry. HEART: no murmurs, regular rate and rhythm. LUNGS: clear to auscultation bilaterally. ABDOMEN: Distended, mildly tense, nontender, right abdominal wall urostomy. EXTREMITIES: no edema. PERIPHERAL PULSES: equal. NEUROLOGIC: No gross deficits, AAO X 3 Objective Labs and Meds 03/23/25 07:00 03/23/25 07:00 Lab results: Laboratory Results - last 24 hr 03/22/25 03/22/25 03/22/25 16:00 18:50 20:13 WBC RBC Hgb Hct MCV MCH MCHC RDW Plt Count MPV Immature Gran % (Auto) Neut % (Auto) Lymph % (Auto) [place] % (Auto) Eos % (Auto) Baso % (Auto) Lymph # (Auto) [place] # (Auto) Eos # (Auto) Baso # (Auto) Abs Immat Gran (auto) Absolute Neuts (auto) Absolute Nucleated RBC Nucleated RBC % (auto) Neutrophils % (Manual) Band Neutrophils % Lymphocytes % (Manual) Monocytes % (Manual) Abs Neuts (Manual) Lymphocytes # (Manual) Monocytes # (Manual) Platelet Estimate Plt Morphology Comment RBC Morphology Hypochromasia Demetrice Cells Sodium 125 L Potassium 4.9 Chloride 99 Carbon Dioxide 15 L Anion Gap 16 BUN 40 H Creatinine 2.87 H Estim Creat Clear Calc 18.1 Estimated GFR 21 POC Glucose 108 Random Glucose 107 Calcium 7.6 L Total Bilirubin AST ALT Alkaline Phosphatase Troponin I High Sens Total Protein Albumin Urine Osmolality 259 L Ur Random Sodium 35.0 03/22/25 03/23/25 03/23/25 20:35 07:00 07:24 WBC 16.2 H RBC 2.72 L Hgb 8.4 L Hct 25.3 L MCV 93.0 MCH 30.9 MCHC 33.2 RDW 17.0 H Plt Count 119 L D MPV 11.7 Immature Gran % (Auto) Cancelled Neut % (Auto) Cancelled Lymph % (Auto) Cancelled [place] % (Auto) Cancelled Eos % (Auto) Cancelled Baso % (Auto) Cancelled Lymph # (Auto) Cancelled [place] # (Auto) Cancelled Eos # (Auto) Cancelled Baso # (Auto) Cancelled Abs Immat Gran (auto) Cancelled Absolute Neuts (auto) Cancelled Absolute Nucleated RBC 0.000 Nucleated RBC % (auto) 0.0 Neutrophils % (Manual) 91 H Band Neutrophils % 3 Lymphocytes % (Manual) 1 L Monocytes % (Manual) 5 Abs Neuts (Manual) 15.2 H Lymphocytes # (Manual) 0.2 L Monocytes # (Manual) 0.8 Platelet Estimate DECREASED Plt Morphology Comment NORMAL RBC Morphology NOTED Hypochromasia 1+ (5-14) [place] Cells 1+ (0-2) Sodium 126 L Potassium 3.6 D Chloride 99 Carbon Dioxide 16 L Anion Gap 15 BUN 39 H Creatinine 2.69 H Estim Creat Clear Calc 19.3 Estimated GFR 23 POC Glucose 110 120 H Random Glucose 115 Calcium 7.8 L Total Bilirubin 0.5 AST 41 H ALT 16 Alkaline Phosphatase 210 H Troponin I High Sens Total Protein 6.2 L Albumin 2.7 L Urine Osmolality Ur Random Sodium 03/23/25 03/23/25 03/23/25 09:32 11:22 12:30 WBC RBC Hgb Hct MCV MCH MCHC RDW Plt Count MPV Immature Gran % (Auto) Neut % (Auto) Lymph % (Auto) [place] % (Auto) Eos % (Auto) Baso % (Auto) Lymph # (Auto) [place] # (Auto) Eos # (Auto) Baso # (Auto) Abs Immat Gran (auto) Absolute Neuts (auto) Absolute Nucleated RBC Nucleated RBC % (auto) Neutrophils % (Manual) Band Neutrophils % Lymphocytes % (Manual) Monocytes % (Manual) Abs Neuts (Manual) Lymphocytes # (Manual) Monocytes # (Manual) Platelet Estimate Plt Morphology Comment RBC Morphology Hypochromasia Demetrice Cells Sodium Potassium Chloride Carbon Dioxide Anion Gap BUN Creatinine Estim Creat Clear Calc Estimated GFR POC Glucose 365 H* Random Glucose Calcium Total Bilirubin AST ALT Alkaline Phosphatase Troponin I High Sens 42.8 H D 36.7 H Total Protein Albumin Urine Osmolality Ur Random Sodium Imaging Radiologist's impression: Impressions KUB X-Ray 03/23/25 09:40 IMPRESSION: Concerning distal large intestine obstruction versus pseudoobstruction [place] syndrome. Electronically signed by: Farhad Johnson MD 03/23/2025 09:57 AM EDT Assessment and Plan (1) Elevated troponin: Status: Acute Plan 75-year-old gentleman with severe sepsis secondary to pyelonephritis and bowel obstruction versus pseudo-obstruction with very mildly elevated troponin levels. This is a type 2 injury due to demand supply mismatch. Continue supportive care for sepsis. Thank you for allowing me to participate in the care of your patient. Please feel free to contact me if you have any questions. Procedures Date of Service Date of Service: 03/23/25
[2025-03-23 16:18] LABS: Glucose, Whole Blood 46 mg/dL (60-115)
[2025-03-23 16:18] LABS: Glucose, Whole Blood 50 mg/dL (60-115)
[2025-03-23 16:18] LABS: Glucose, Whole Blood 95 mg/dL (60-115)
[2025-03-23 19:48] VITALS: BP 136/63; PULSE 73; RESP 17; TEMP 37; O2SAT 100
[2025-03-23 21:36] LABS: Glucose, Whole Blood 169 mg/dL (60-115)
--- NOTE | 2025-03-24 | ECG_ITS ---
Test Reason : cp Blood Pressure : */* mmHG Vent. Rate : 78 BPM Atrial Rate : 78 BPM P-R Int : 166 ms QRS Dur : 96 ms QT Int : 384 ms P-R-T Axes : 33 205 30 degrees QTcB Int : 437 ms Sinus rhythm with Premature atrial complexes Right superior axis deviation Incomplete right bundle branch block Septal infarct (cited on or before 23-Mar-2025) Abnormal ECG When compared with ECG of 23-Mar-2025 04:18, Premature atrial complexes are now Present QRS axis Shifted left Questionable change in initial forces of Septal leads Referred By: Pardeep Lorenzo Electronically Signed By: Marv Aguiar
[2025-03-24] MEDS: Milk of Magnesia 30 ML ORAL.SUSP PO (00:19)
[2025-03-24 03:54] VITALS: BP 141/65; PULSE 88; RESP 16; TEMP 36.6; O2SAT 97
[2025-03-24 07:09] VITALS: BP 141/66; PULSE 76; RESP 16; TEMP 36.3; O2SAT 95
[2025-03-24 07:09] LABS: MANUAL DIFF FLAG NO
[2025-03-24 07:14] LABS: Hematocrit 21.8 % (42.0-52.0); Hemoglobin 7.6 g/dl (14.0-18.0); Imm Gran Abs Auto 0.05 X10*3/uL (0.00-0.03); Imm Gran Pct Auto 0.6 % (0.0-0.4); Lymphocytes Absolute Auto 0.9 X10*3/uL (1.2-4.9); Mean Corpuscular HGB Conc 34.9 g/dl (31.0-36.0); Mean Corpuscular Hemoglobin 32.1 pg (27.0-33.0); Mean Corpuscular Volume 92.0 fL (80.0-98.0); NRBC Abs Auto 0.000 X10*3/uL (0.0-0.012); NRBC Pct Auto 0.0 /100WBC (0.0-0.2); Platelet Count 119 X10*3/uL (160-400); Red Blood Count 2.37 X10*6/uL (4.60-5.80); White Blood Count 7.9 X10*3/uL (4.8-10.8)
[2025-03-24 07:19] LABS: Glucose, Whole Blood 85 mg/dL (60-115)
[2025-03-24] MEDS: Ferrous Sulfate 324 MG TABLET.DR PO (07:20)
[2025-03-24] MEDS: oxyCODONE HCl Immed Release 5 MG TABLET PO ×2 (07:20→13:44)
[2025-03-24] MEDS: Fluticasone/Vilanterol 200/25 BLST.W.DEV 1 PUFF INHALE (08:08)
[2025-03-24 08:10] VITALS: PULSE 83; RESP 16
--- NOTE | 2025-03-24 09:24 | P.PNNP_ITS ---
Subjective Subjective Date of Service: 03/24/25 Interval history: Patient here with urosepsis with bacteremia with urostomy complication. Following for LUIS, hyponatremia. Patient reports he is feeling better today than yesterday. Denies nausea. States some pain around urostomy remains. Denies chills. +fatigue. +shortness of breath but states this has improved a bit. Denies new concerns/complaints. Urostomy putting out over 1L urine last 24 hours. Physical Exam 2 Vital Signs: Vital Signs: Last Vital Signs Temp 97.3 F 03/24/25 07:09 Pulse 83 03/24/25 08:10 Resp 16 03/24/25 08:10 BP 141/66 H 03/24/25 07:09 Pulse Ox 95 03/24/25 07:09 O2 Del Method Room Air 03/24/25 07:09 BMI result Body Mass Index 27.1 Const: General: no acute distress, alert and awake Resp: Effort & Inspection: normal respiratory effort Auscultation: clear to auscultation bilaterally Cardio: Rate: regular rate Rhythm: regular rhythm Heart sounds: S1 normal heart sound present and S2 normal heart sound present GI: Palpation (GI): Soft to palpation and Tenderness to palpation present (GI) (tender RLQ around urostomy site) Skin: Rashes: no rashes Extrem: General: No edema Objective Data Labs 03/24/25 06:52 03/24/25 09:08 Labs: Laboratory Results - last 24 hr 03/23/25 03/23/25 03/23/25 09:32 11:22 12:30 WBC RBC Hgb Hct MCV MCH MCHC RDW Plt Count MPV Immature Gran % (Auto) Neut % (Auto) Lymph % (Auto) [place] % (Auto) Eos % (Auto) Baso % (Auto) Lymph # (Auto) [place] # (Auto) Eos # (Auto) Baso # (Auto) Abs Immat Gran (auto) Absolute Neuts (auto) Absolute Nucleated RBC Nucleated RBC % (auto) POC Glucose 365 H* Troponin I High Sens 42.8 H D 36.7 H 03/23/25 03/23/25 03/23/25 15:38 15:55 16:15 WBC RBC Hgb Hct MCV MCH MCHC RDW Plt Count MPV Immature Gran % (Auto) Neut % (Auto) Lymph % (Auto) [place] % (Auto) Eos % (Auto) Baso % (Auto) Lymph # (Auto) [place] # (Auto) Eos # (Auto) Baso # (Auto) Abs Immat Gran (auto) Absolute Neuts (auto) Absolute Nucleated RBC Nucleated RBC % (auto) POC Glucose 46 L* 50 L* 95 Troponin I High Sens 03/23/25 03/24/25 03/24/25 21:12 06:52 07:15 WBC 7.9 RBC 2.37 L Hgb 7.6 L Hct 21.8 L MCV 92.0 MCH 32.1 MCHC 34.9 RDW 16.8 H Plt Count 119 L MPV 10.9 Immature Gran % (Auto) 0.6 H Neut % (Auto) 72.9 Lymph % (Auto) 11.1 L [place] % (Auto) 9.8 Eos % (Auto) 5.2 H Baso % (Auto) 0.4 Lymph # (Auto) 0.9 L [place] # (Auto) 0.8 Eos # (Auto) 0.4 Baso # (Auto) 0.0 Abs Immat Gran (auto) 0.05 H Absolute Neuts (auto) 5.8 Absolute Nucleated RBC 0.000 Nucleated RBC % (auto) 0.0 POC Glucose 169 H 85 Troponin I High Sens Microbiology Microbiology Results: Microbiology 03/20/25 23:21 Blood - Venous Blood Culture - Final Escherichia coli 03/20/25 23:07 Blood - Venous Blood Culture - Preliminary Escherichia coli 03/20/25 Unknown Urine clean catch - Clean Catch Midstream Urine Culture - Final Procedures Date of Service Date of Service: 03/24/25 Assessment & Plan Assessment and plan (1) LUIS (acute kidney injury): Status: Acute (2) Sepsis: Status: Acute (3) Mass of left lung: Status: Acute (4) Hyponatremia: Status: Acute Plan LUIS secondary to obstruction. ATN from sepsis likely also contributing- improving urology has removed catheter from stoma, on antibiotics for urosepsis- continue. metabolic acidosis from sepsis and LUIS- stable. hyponatremia- likely saidh from pulmonary mass. Improving. Recommend continue oral free water restriction 1.2L/24 hours. Ok to give NS IVF if patient becomes dry. Recommend daily electrolyte and renal function studies recommend close I&O monitoring, regular blood pressure checks- avoid hypotension recommend avoiding nephrotoxic agents Continue supportive care Discussed with Dr Nascimento. Time Spent With Patient Time: Total time managing care of this patient today ____ minutes. Progress Note: Quality Stroke Does the patient have a stroke diagnosis?: No
[2025-03-24 10:16] LABS: Anion Gap 10 (12-20); Blood Urea Nitrogen 28 mg/dL (9-16); Calcium 7.8 mg/dL (8.4-10.2); Carbon Dioxide 17 mmol/L (22-29); Chloride 104 mmol/L (96-108); Creatinine Clr Calc Pharmacy 27.4; Estimated Glomerular Filt Rate 35; Potassium 2.9 mmol/L (3.3-5.1); Sodium 128 mmol/L (135-145)
[2025-03-24] MEDS: Potassium Chloride/H20 10 MEQ/100 ML PIGGYBACK 100 MEQ IV ×2 (10:38→11:45)
[2025-03-24 11:19] LABS: Glucose, Whole Blood 141 mg/dL (60-115)
[2025-03-24] MEDS: Potassium Chloride Packet 20 MEQ PACKET 40 MEQ PO (13:44)
--- NOTE | 2025-03-24 15:03 | MHC.CM.PN ---
Pt is not yet ready to DC. Pt. is on liquid diet, and fluid restriction. Update sent to [facility].
--- NOTE | 2025-03-24 15:15 | HO.OSTOMY ---
Ostomy Consult: Initial - Urostomy 75yr old male admitted to [facility] on 03/21/25 04:50 - see H&P for detailed history. Ostomy consult placed by direct care nurse for concerns with pouch adherence. Arrival to bedside it was discovered clear fluid suspect urine is leaking from wound at the 3 o'clock location. There is continuous drainage from the site making pouching difficult. Chart review reveals patient had recent Urostomy revision with Dr. Narayan last admission this month. The patient reports the wound to the medial side of the stoma is new and was not present prior. The patient has clinically significant medical history including diabetes and Bladder cancer and post urostomy creation in 2020 from hospital in [facility]. His abdomen is significantly distended and tender to touch would recommend imaging to rule out leaking into abdominal cavity. TT to Dr. Narayan with concerns and BALWINDER Walton from hospitalist team. The patients reports she changes his pouches at home and she showed me the pouch he uses , [place] firm convex pouch with a max cut ring of 25mm. Currently his stoma measures 25mm but the area of concern for leaking needs to be incorporated into his pouch and there for his pouch from home can not be used as the max cutting surface is the 25mm jennifer. The patient and his understand this. He was placed into our [facility] flat 2 piece urostomy pouch # [id number]. Again the pouch was cut to accommodate the leaking wound template left at bedside for staff to use for next pouch change. Given the continuous leaking low suction was used to keep the area dry while the pouch was replaced. Powder and skin prep was used to area not treated with barrier strip paste. Barrier Strip paste was used to the wound edge and around the stoma see photo below then the pouch was placed. There was a good seal and no leaking noted. The patient and staff were educated on the steps to take for the next pouch change. The patient will need new ostomy pouches for d/c to home given the pouches he has at home can not accommodate this new area. I would suggest we send the patient home with [facility] supplies until [facility] or Dr. Narayan's office can help him order new pouches from [place]. New supplies suggested by this ostomy nurse are as follows: Coloplast Brava Barrier Strip Paste # [id number] Brava Powder #[place] [id number] [place] [employer] Barrier Strips # [id number] [place] # [id number] wafer and #[id number] bag / pouch OR Coloplast Sensura [id number] 1 piece urostomy pouch Urostomy Stoma Urostomy With Barrier Strip paste around stoma prior to pouch wafer Stoma with wafer. Pouching recommendations: 1. Empty pouch before pouch change 2. Remove pouch using push/pull technique from top to bottom 3. Cleanse stoma and skin with tap water only - no soap or baby wipes 4. Pat dry - given high out put from wound next to urostomy RN may use gentle suction to control drainage while changing pouch. 5. Use Template left at bedside to cut new pouch wafer to accommodate wound. Measure stoma and cut new pouch no more than 1/8 inch larger than stoma and no smaller than stoma 6. Apply brave barrier strip to edge of stoma and wound to creawte a seal see photo above. 7. Press the new pouch into place and hold for several minutes. 8. Empty pouch when 1/3 to 1/2 full 9. Change pouch twice weekly on a schedule (for example, every Thursday and ) and as needed for any leaking (feels like intense itch or burn at edge of stoma) 10. Patient will need a new pouch at time of d/c as his pouches at home can not accommodate the new leaking wound. ?
--- NOTE | 2025-03-24 15:59 | HO.PM.IMPN ---
Subjective Subjective Date of Service: 03/24/25 Interval History: Still some bloating, though improved Has been passing gas; had normal BM yesterday SOB better Some urine leaking around urostomy Tenderness around right-side of urostomy Review of Systems Review of Systems: Yes all other systems are reviewed and are negative Physical Exam Exam: Exam: General: AOx3, no acute distress. Resp: CTA bilaterally CVS: S1, S2, RRR, +murmur GI: +BS, mild distention with some firmness; tympanic to percussion : Ostomy with clear yellow urine output; urine leaking from around urostomy, right-sided abd pain around urostomy. As pictured below Skin: Warm, dry Neuro: Cranial nerves II-XII grossly intact bilaterally. Motor grossly intact bilaterally Extremities: No edema Psych: Appropriate affect Vital Signs: Vital Signs: Last Vital Signs Temp 97.3 F 03/24/25 07:09 Pulse 83 03/24/25 08:10 Resp 16 03/24/25 08:10 BP 141/66 H 03/24/25 07:09 Pulse Ox 95 03/24/25 07:09 O2 Del Method Room Air 03/24/25 07:09 BMI result Body Mass Index 27.1 Objective Data Active Medications Acetaminophen (Acetaminophen 325 Mg Tablet) 975 mg PO Q6H PRN PRN Reason: Pain, Mild 1-3,fever,headache Last Admin: 03/21/25 08:15 Dose: 975 mg Documented By: LINDA Bisacodyl (Bisacodyl 5 Mg Tablet.) 5 mg PO BEDTIME [facility] Last Admin: 03/23/25 22:10 Dose: 5 mg Documented By: VIRGILIO Calcium Carbonate (Calcium Carbonate 750 Mg Tab.Chew) 750 mg PO Q4H PRN PRN Reason: Heartburn Last Admin: 03/23/25 05:11 Dose: 750 mg Documented By: DONNA Ceftriaxone Sodium (Ceftriaxone Sodium 2 Gm Vial) 2 gm IVPUSH Q24H [facility] Last Admin: 03/24/25 07:21 Dose: 2 gm Documented By: MAVERICK Dextrose (Dextrose 50 % 25 Gm/50 Ml Syringe) 25 gm IVPUSH Q15M PRN; Protocol PRN Reason: per Hypoglycemia Standing Ord. Ferrous Sulfate (Ferrous Sulfate 324 Mg Tablet.) 324 mg PO DAILY [facility] Last Admin: 03/24/25 07:20 Dose: 324 mg Documented By: MAVERICK Fluticasone/Vilanterol (Fluticasone/Vilanterol 200/25 Blst.W.Dev) 1 puff INHALE RDAILY [facility] Last Admin: 03/24/25 08:08 Dose: 1 puff Documented By: DUC Folic Acid (Folic Acid 1 Mg Tablet) 1 mg PO DAILY [facility] Last Admin: 03/24/25 07:20 Dose: 1 mg Documented By: MAVERICK Glucose (Glucose Gel 15 Gm Gel..Gram.) 15 gm PO Q15M PRN; Protocol PRN Reason: per Hypoglycemia Standing Ord. Last Admin: 03/23/25 15:56 Dose: 15 gm Documented By: GALLO Insulin Human Lispro (Insulin Lispro 100 Unit/Ml 3 Ml Vial) 0 unit SUBCUT QIDACHS [facility]; Protocol Last Admin: 03/24/25 11:25 Dose: Not Given Documented By: MAVERICK Non-Admin Reason: No Insulin Coverage Magnesium Hydroxide (Milk Of Magnesia 30 Ml Oral.Susp) 30 ml PO DAILY PRN PRN Reason: Constipation Last Admin: 03/24/25 00:19 Dose: 30 ml Documented By: VIRGILIO Melatonin (Melatonin 3 Mg Tablet) 6 mg PO BEDTIME PRN PRN Reason: Insomnia Last Admin: 03/22/25 23:43 Dose: 6 mg Documented By: DONNA Montelukast Sodium (Montelukast Sodium 10 Mg Tablet) 10 mg PO DAILY [facility] Last Admin: 03/24/25 07:20 Dose: 10 mg Documented By: MAVERICK Ondansetron HCl (Ondansetron Hcl 4 Mg/2 Ml Vial) 4 mg IVPUSH Q8H PRN PRN Reason: Nausea and Vomiting Last Admin: 03/23/25 10:36 Dose: 4 mg Documented By: GALLO Oxycodone HCl (Oxycodone Hcl Immed Release 5 Mg Tablet) 5 mg PO Q6H PRN PRN Reason: Pain, Severe (Pain Scale 7-10) Last Admin: 03/24/25 13:44 Dose: 5 mg Documented By: MAVERICK Prochlorperazine Edisylate (Prochlorperazine Edisylate 10 Mg/2 Ml Vial) 5 mg IV Q6H PRN PRN Reason: Nausea and Vomiting Last Admin: 03/22/25 20:01 Dose: 5 mg Documented By: DONNA Simethicone (Simethicone 80 Mg Tab.Chew) 80 mg PO QIDWMHS PRN PRN Reason: Gas Last Admin: 03/24/25 00:19 Dose: 80 mg Documented By: VIRGILIO Sodium Chloride (0.9 % Sodium Chloride Flush 3 Ml Syringe) 3 ml IVFLUSH QSHIFT [facility] Last Admin: 03/24/25 07:22 Dose: Not Given Documented By: MAVERICK Non-Admin Reason: IV Running Tramadol HCl (Tramadol Hcl 50 Mg Tablet) 50 mg PO Q6H PRN PRN Reason: Pain, Moderate(Pain Scale 4-6) Last Admin: 03/24/25 00:19 Dose: 50 mg Documented By: VIRGILIO Labs 03/24/25 06:52 03/24/25 09:08 Labs: Laboratory Results - last 24 hr 03/23/25 03/23/25 03/23/25 15:38 15:55 16:15 MCV MCH MCHC RDW Plt Count MPV Immature Gran % (Auto) Neut % (Auto) Lymph % (Auto) [place] % (Auto) Eos % (Auto) Baso % (Auto) Lymph # (Auto) [place] # (Auto) Eos # (Auto) Baso # (Auto) Abs Immat Gran (auto) Absolute Neuts (auto) Absolute Nucleated RBC Nucleated RBC % (auto) Anion Gap Estim Creat Clear Calc Estimated GFR POC Glucose 46 L* 50 L* 95 Random Glucose Calcium 03/23/25 03/24/25 03/24/25 21:12 06:52 07:15 MCV 92.0 MCH 32.1 MCHC 34.9 RDW 16.8 H Plt Count 119 L MPV 10.9 Immature Gran % (Auto) 0.6 H Neut % (Auto) 72.9 Lymph % (Auto) 11.1 L [place] % (Auto) 9.8 Eos % (Auto) 5.2 H Baso % (Auto) 0.4 Lymph # (Auto) 0.9 L [place] # (Auto) 0.8 Eos # (Auto) 0.4 Baso # (Auto) 0.0 Abs Immat Gran (auto) 0.05 H Absolute Neuts (auto) 5.8 Absolute Nucleated RBC 0.000 Nucleated RBC % (auto) 0.0 Anion Gap Estim Creat Clear Calc Estimated GFR POC Glucose 169 H 85 Random Glucose Calcium 03/24/25 03/24/25 09:08 11:07 MCV MCH MCHC RDW Plt Count MPV Immature Gran % (Auto) Neut % (Auto) Lymph % (Auto) [place] % (Auto) Eos % (Auto) Baso % (Auto) Lymph # (Auto) [place] # (Auto) Eos # (Auto) Baso # (Auto) Abs Immat Gran (auto) Absolute Neuts (auto) Absolute Nucleated RBC Nucleated RBC % (auto) Anion Gap 10 L Estim Creat Clear Calc 27.4 Estimated GFR 35 POC Glucose 141 H Random Glucose 91 Calcium 7.8 L Microbiology Microbiology Results: Microbiology 03/20/25 23:07 Blood Culture - Preliminary Blood - Venous Escherichia coli Assessment and Plan (1) Pyelonephritis: Status: Acute Plan 74-year-old male with a past medical history significant for mild intermittent asthma, type 2 diabetes, HLD, HTN, history bladder cancer s/p cystectomy and ileal loop urostomy, with recent admission for urostomy bleed requiring blood transfusion and new diagnosis of liver cirrhosis ?JENNIE, discharged 03/17/25, who presented to the ED due to 2 days of low back pain with fever up to 103.3 and decreased output in his urostomy bag/constipation. severe sepsis secondary to pyelonephritis and bacteremia with urostomy complication ua : pyuria/bacteruria /hematuria leucocytosis improving, tachcardia/tachypenia improving ua positive, blood cultures x2 positive for e. coli sensitive to ceftriaxone continue ceftriaxone, day 4 LUIS similar acute lactic acidosis improving, no further trending,bicarb also flactautes abdominopelvic CT with distended ileal conduit and bilateral hydroureteronephrosis, etc. dysfunction of the Judge catheter located within the conduit at the ostomy site. Patchy opacity of the left lower lobe, this could be aspiration or consolidation, follow up to clearing would be helpful. Small amount of ascites and effusions of uncertain etiology. This could be related to the urinary process, 3rd spacing of fluid volume overload, or sequela of portal hypertension. Pt has received treatment for hyperkalemia, also IV fluids Urology following, removed catheter from stoma on 03/22 Continue IV fluid, antiemetics, pain management. Leaking around urostomy Will need evaluation by urology Hypokalemia Given oral and IV potassium supplementation Monitor ?LBO Pt with N/V, abd bloating and left-sided tenderness yesterday KUB concerning for distal large intestine obstruction vs pseudo-obstruction [place] syndrome Was seen by general surgery who recommended ambulation; no need for repeat CT Will place on full, advance as tolerated; encourage ambulation/OOB Monitor closely LUIS:LUIS secondary to obstruction. ATN from sepsis likely also contributing - avoid nephrotoxins when possible - monitor BMP, ivf - nephrology following - follow BMP Hyponatremia, metabolic acidosis - IV fluids as above - 1.2L fluid restriction - nephrology following Chest heaviness EKG showing changes in septal leads Serial troponins flat 42.8 and 36.7 Pt currently asymptomatic Likely type 2 in the setting of increased demand Echocardiogram overall reassuring Cardiology consulted, no additional workup or treatment indication at this time Monitor on telemetry Chronic anemia - stable, around baseline - no need for blood transfusion at this time - monitor CBC Elevated LFTs, likely secondary to sepsis patient also undergoing workup with GI outpatient for ?SCHNEIDER cirrhosis continue outpatient follow-up Mild intermittent asthma, no acute exacerbation- LLL infiltrate on A/P CT, pt asx continue home meds T2DM - sliding scale insulin - diabetic diet HLD - continue home meds HTN - normotensive, resume home meds when appropriate Full code VTE prophylaxis: Pneumoboots due to gross hematuria and recent admission with urostomy bleeding requiring blood transfusion Patient with severe sepsis secondary to UTI, complicated by urostomy tube displacement, requiring admission for at least 2 midnights stay for IV antibiotics and urological consultation. Quality Stroke Does the patient have a stroke diagnosis?: No VTE Prior VTE?: No VTE Risk Level:: Medical - moderate - high VTE Device Contraindication: N/A - Device Ordered VTE Drug Contraindication: Treatment Not Indicated
[2025-03-24 16:00] VITALS: BP 141/67; PULSE 71; RESP 18; TEMP 36.6; O2SAT 100
[2025-03-24 16:02] LABS: Glucose, Whole Blood 138 mg/dL (60-115)
[2025-03-24] MEDS: 0.9 % Sodium Chloride Flush 3 ML SYRINGE IVFLUSH ×2 (16:55→22:05)
[2025-03-24 19:37] VITALS: BP 162/78; PULSE 72; RESP 18; TEMP 36.5; O2SAT 98
[2025-03-24 21:25] LABS: Glucose, Whole Blood 105 mg/dL (60-115)
[2025-03-25] VITALS (7 sets, daily range): BP systolic 143–164; BP diastolic 64–71; PULSE 66–76; RESP 18–20; TEMP 36.4–36.8; O2SAT 98–100
[2025-03-25 07:09] LABS: Hematocrit 24.4 % (42.0-52.0); Hemoglobin 8.2 g/dl (14.0-18.0); Mean Corpuscular HGB Conc 33.6 g/dl (31.0-36.0); Mean Corpuscular Hemoglobin 30.7 pg (27.0-33.0); Mean Corpuscular Volume 91.4 fL (80.0-98.0); NRBC Abs Auto 0.020 X10*3/uL (0.0-0.012); NRBC Pct Auto 0.3 /100WBC (0.0-0.2); Platelet Count 141 X10*3/uL (160-400); Red Blood Count 2.67 X10*6/uL (4.60-5.80); White Blood Count 6.5 X10*3/uL (4.8-10.8)
[2025-03-25 07:21] LABS: Anion Gap 15 (12-20); Blood Urea Nitrogen 22 mg/dL (9-16); Calcium 8.0 mg/dL (8.4-10.2); Carbon Dioxide 19 mmol/L (22-29); Chloride 102 mmol/L (96-108); Creatinine Clr Calc Pharmacy 33.0; Estimated Glomerular Filt Rate 43; Potassium 3.2 mmol/L (3.3-5.1); Sodium 133 mmol/L (135-145)
[2025-03-25 07:32] LABS: Glucose, Whole Blood 85 mg/dL (60-115)
[2025-03-25] MEDS: Fluticasone/Vilanterol 200/25 BLST.W.DEV 1 PUFF INHALE (08:07)
[2025-03-25] MEDS: Ferrous Sulfate 324 MG TABLET.DR PO (10:03)
[2025-03-25] MEDS: 0.9 % Sodium Chloride Flush 3 ML SYRINGE IVFLUSH ×2 (10:03→16:45)
[2025-03-25] MEDS: Potassium Chloride Packet 20 MEQ PACKET 40 MEQ PO (10:07)
--- NOTE | 2025-03-25 11:41 | P.PNUR_ITS ---
Subjective Subjective Date of Service: 03/25/25 Interval history: Continued improvement in Cr WBC resolved - 16.6 to 6.5 Judge catheter placed per stoma since had some degree of parastomal urine leakage Physical Exam 2 Vital Signs: Vital Signs: Last Vital Signs Temp 97.5 F 03/25/25 08:00 Pulse 74 03/25/25 08:09 Resp 18 03/25/25 08:09 BP 155/69 H 03/25/25 08:00 Pulse Ox 100 03/25/25 08:00 O2 Del Method Room Air 03/25/25 08:00 BMI result Body Mass Index 27.1 Const: General: cooperative, healthy appearing, comfortable and no acute distress Orientation/consciousness: patient oriented x3 HEENT: Face and sinus: Yes normal facial exam Mouth: moist mucous membranes Neck: Neck: Yes normal visual inspection, Yes full ROM and Yes trachea midline Chest: Chest palpation & inspection: normal inspection of the chest Resp: Effort & Inspection: normal respiratory effort, able to speak in complete sentences and no respiratory distress GI: Inspection: Yes normal to inspection Back/Spine/Pelvis: Cervical Spine: normal cervical lordosis Thoracic/Lumbar Spine: thoracic and lumbar spine normal to inspection Skin: General skin exam: no rashes or lesions noted Neuro: General: patient oriented x3, tone normal and moves all extremities Extrem: General: Yes normal to inspection and Yes capillary refill normal Urology Results Labs 03/25/25 06:41 03/25/25 06:41 Labs: Laboratory Results - last 24 hr 03/24/25 03/24/25 03/25/25 15:52 21:12 06:41 WBC 6.5 RBC 2.67 L Hgb 8.2 L Hct 24.4 L MCV 91.4 MCH 30.7 MCHC 33.6 RDW 16.9 H Plt Count 141 L MPV 10.6 Absolute Nucleated RBC 0.020 H Nucleated RBC % (auto) 0.3 H Sodium 133 L Potassium 3.2 L Chloride 102 Carbon Dioxide 19 L Anion Gap 15 BUN 22 H Creatinine 1.58 H Estim Creat Clear Calc 33.0 Estimated GFR 43 POC Glucose 138 H 105 Random Glucose 86 Calcium 8.0 L 03/25/25 07:28 WBC RBC Hgb Hct MCV MCH MCHC RDW Plt Count MPV Absolute Nucleated RBC Nucleated RBC % (auto) Sodium Potassium Chloride Carbon Dioxide Anion Gap BUN Creatinine Estim Creat Clear Calc Estimated GFR POC Glucose 85 Random Glucose Calcium Progress Note: A&P Assessment and plan (1) Pyelonephritis: Status: Acute Plan Resolving pyelonephritis Time Spent With Patient Time: Total time managing care of this patient today ____ minutes. Progress Note: Quality Stroke Does the patient have a stroke diagnosis?: No
[2025-03-25 11:42] LABS: Glucose, Whole Blood 125 mg/dL (60-115)
[2025-03-25 15:40] LABS: Glucose, Whole Blood 130 mg/dL (60-115)
--- NOTE | 2025-03-25 17:42 | P.PNIM_ITS ---
Subjective Subjective Date of Service: 03/25/25 Interval History: Pt with peristomal urine leakage; had Judge catheter placed in stoma by Urology No subsequent leakage Peristomal pain improved Abdominal bloating improved; passing gas, had 2 normal bowel movements yesterday; tolerating full liquid diet Denies nausea or vomiting No chest pain Breathing ok Review of Systems Review of Systems: Yes all other systems are reviewed and are negative Physical Exam 2 Exam: Exam: General: AOx3, no acute distress Resp: CTA bilaterally CVS: S1, S2, RR, +murmur GI: +BS, NT, soft, mild distention : Ostomy with catheter in place, draining clear yellow urine; periostomy without significant tenderness Skin: Warm, dry Neuro: Cranial nerves II-XII grossly intact bilaterally. Motor grossly intact bilaterally Extremities: No edema Psych: Appropriate affect Vital Signs: Vital Signs: Last Vital Signs Temp 97.8 F 03/25/25 16:00 Pulse 75 03/25/25 16:00 Resp 18 03/25/25 16:00 BP 143/64 H 03/25/25 16:00 Pulse Ox 99 03/25/25 16:00 O2 Del Method Room Air 03/25/25 16:00 BMI result Body Mass Index 27.1 Objective Data Active Medications Acetaminophen (Acetaminophen 325 Mg Tablet) 975 mg PO Q6H PRN PRN Reason: Pain, Mild 1-3,fever,headache Last Admin: 03/21/25 08:15 Dose: 975 mg Documented By: LINDA Bisacodyl (Bisacodyl 5 Mg Tablet.) 5 mg PO BEDTIME [facility] Last Admin: 03/24/25 22:05 Dose: 5 mg Documented By: PEPPER Calcium Carbonate (Calcium Carbonate 750 Mg Tab.Chew) 750 mg PO Q4H PRN PRN Reason: Heartburn Last Admin: 03/23/25 05:11 Dose: 750 mg Documented By: DONNA Ceftriaxone Sodium (Ceftriaxone Sodium 2 Gm Vial) 2 gm IVPUSH Q24H [facility] Last Admin: 03/25/25 10:03 Dose: 2 gm Documented By: VADIM Dextrose (Dextrose 50 % 25 Gm/50 Ml Syringe) 25 gm IVPUSH Q15M PRN; Protocol PRN Reason: per Hypoglycemia Standing Ord. Ferrous Sulfate (Ferrous Sulfate 324 Mg Tablet.) 324 mg PO DAILY [facility] Last Admin: 03/25/25 10:03 Dose: 324 mg Documented By: VADIM Fluticasone/Vilanterol (Fluticasone/Vilanterol 200/25 Blst.W.Dev) 1 puff INHALE RDAILY [facility] Last Admin: 03/25/25 08:07 Dose: 1 puff Documented By: ELOY Folic Acid (Folic Acid 1 Mg Tablet) 1 mg PO DAILY [facility] Last Admin: 03/25/25 10:03 Dose: 1 mg Documented By: VADIM Glucose (Glucose Gel 15 Gm Gel..Gram.) 15 gm PO Q15M PRN; Protocol PRN Reason: per Hypoglycemia Standing Ord. Last Admin: 03/23/25 15:56 Dose: 15 gm Documented By: GALLO Insulin Human Lispro (Insulin Lispro 100 Unit/Ml 3 Ml Vial) 0 unit SUBCUT QIDACHS [facility]; Protocol Last Admin: 03/25/25 15:49 Dose: Not Given Documented By: VADIM Non-Admin Reason: No Insulin Coverage Magnesium Hydroxide (Milk Of Magnesia 30 Ml Oral.Susp) 30 ml PO DAILY PRN PRN Reason: Constipation Last Admin: 03/24/25 00:19 Dose: 30 ml Documented By: VIRGILIO Melatonin (Melatonin 3 Mg Tablet) 6 mg PO BEDTIME PRN PRN Reason: Insomnia Last Admin: 03/22/25 23:43 Dose: 6 mg Documented By: DONNA Montelukast Sodium (Montelukast Sodium 10 Mg Tablet) 10 mg PO DAILY [facility] Last Admin: 03/25/25 10:03 Dose: 10 mg Documented By: VADIM Ondansetron HCl (Ondansetron Hcl 4 Mg/2 Ml Vial) 4 mg IVPUSH Q8H PRN PRN Reason: Nausea and Vomiting Last Admin: 03/23/25 10:36 Dose: 4 mg Documented By: GALLO Oxycodone HCl (Oxycodone Hcl Immed Release 5 Mg Tablet) 5 mg PO Q6H PRN PRN Reason: Pain, Severe (Pain Scale 7-10) Last Admin: 03/24/25 13:44 Dose: 5 mg Documented By: MAVERICK Prochlorperazine Edisylate (Prochlorperazine Edisylate 10 Mg/2 Ml Vial) 5 mg IV Q6H PRN PRN Reason: Nausea and Vomiting Last Admin: 03/22/25 20:01 Dose: 5 mg Documented By: DONNA Simethicone (Simethicone 80 Mg Tab.Chew) 80 mg PO QIDWMHS PRN PRN Reason: Gas Last Admin: 03/24/25 00:19 Dose: 80 mg Documented By: VIRGILIO Sodium Chloride (0.9 % Sodium Chloride Flush 3 Ml Syringe) 3 ml IVFLUSH [facility] Last Admin: 03/25/25 10:03 Dose: 3 ml Documented By: VADIM Tramadol HCl (Tramadol Hcl 50 Mg Tablet) 50 mg PO Q6H PRN PRN Reason: Pain, Moderate(Pain Scale 4-6) Last Admin: 03/24/25 00:19 Dose: 50 mg Documented By: VIRGILIO Labs 03/25/25 06:41 03/25/25 06:41 Labs: Laboratory Results - last 24 hr 03/24/25 03/25/25 03/25/25 21:12 06:41 07:28 MCV 91.4 MCH 30.7 MCHC 33.6 RDW 16.9 H Plt Count 141 L MPV 10.6 Absolute Nucleated RBC 0.020 H Nucleated RBC % (auto) 0.3 H Anion Gap 15 Estim Creat Clear Calc 33.0 Estimated GFR 43 POC Glucose 105 85 Random Glucose 86 Calcium 8.0 L 03/25/25 03/25/25 11:33 15:32 MCV MCH MCHC RDW Plt Count MPV Absolute Nucleated RBC Nucleated RBC % (auto) Anion Gap Estim Creat Clear Calc Estimated GFR POC Glucose 125 H 130 H Random Glucose Calcium Microbiology Microbiology Results: Microbiology 03/20/25 23:07 Blood Culture - Preliminary Blood - Venous Escherichia coli Assessment and Plan (1) Hyponatremia: Status: Acute (2) LUIS (acute kidney injury): Status: Acute (3) Pyelonephritis: Status: Acute Plan 74-year-old male with a past medical history significant for mild intermittent asthma, type 2 diabetes, HLD, HTN, history bladder cancer s/p cystectomy and ileal loop urostomy, with recent admission for urostomy bleed requiring blood transfusion and new diagnosis of liver cirrhosis ?JENNIE discharged 03/17/25, who presented to the ED due to 2 days of low back pain with fever up to 103.3 and decreased output in his urostomy bag/constipation. severe sepsis secondary to pyelonephritis and bacteremia with urostomy complication ua : pyuria/bacteruria /hematuria leucocytosis improving, tachcardia/tachypenia improving ua positive, blood cultures x2 positive for e. coli sensitive to ceftriaxone continue ceftriaxone, day 4 LUIS similar acute lactic acidosis improving, no further trending,bicarb also flactautes abdominopelvic CT with distended ileal conduit and bilateral hydroureteronephrosis, etc. dysfunction of the Judge catheter located within the conduit at the ostomy site. Patchy opacity of the left lower lobe, this could be aspiration or consolidation, follow up to clearing would be helpful. Small amount of ascites and effusions of uncertain etiology. This could be related to the urinary process, 3rd spacing of fluid volume overload, or sequela of portal hypertension. Pt has received treatment for hyperkalemia, also IV fluids Urology following, removed catheter from stoma on 03/22 Continue IV fluid, antiemetics, pain management. Leaking around urostomy Judge catheter placed in ostomy by urology urology following Hypokalemia, improving Given oral and IV potassium supplementation Monitor ?LBO Pt with N/V, abd bloating and left-sided tenderness yesterday KUB concerning for distal large intestine obstruction vs pseudo-obstruction [place] syndrome Was seen by general surgery who recommended ambulation; no need for repeat CT Will place on full, advance as tolerated; encourage ambulation/OOB Monitor closely LUIS:LUIS secondary to obstruction. ATN from sepsis likely also contributing - avoid nephrotoxins when possible - monitor BMP, ivf - nephrology following - follow BMP Hyponatremia, metabolic acidosis - Resolving, sodium 133 - 1.2L fluid restriction - nephrology following Chest heaviness, resolved EKG showing changes in septal leads Serial troponins flat 42.8 and 36.7 Pt currently asymptomatic Likely type 2 in the setting of increased demand Echocardiogram overall reassuring Cardiology consulted, no additional workup or treatment indication at this time Monitor on telemetry Chronic anemia - stable, around baseline - no need for blood transfusion at this time - monitor CBC Elevated LFTs, likely secondary to sepsis patient also undergoing workup with GI outpatient for ?SCHNEIDER cirrhosis continue outpatient follow-up Mild intermittent asthma, no acute exacerbation- LLL infiltrate on A/P CT, pt asx continue home meds T2DM - sliding scale insulin - diabetic diet HLD - continue home meds HTN - normotensive, resume home meds when appropriate Full code VTE prophylaxis: Pneumoboots due to gross hematuria and recent admission with urostomy bleeding requiring blood transfusion Patient with severe sepsis secondary to UTI, complicated by urostomy tube displacement, requiring admission for at least 2 midnights stay for IV antibiotics and urological consultation. Quality Stroke Does the patient have a stroke diagnosis?: No VTE Prior VTE?: No VTE Risk Level:: Medical - moderate - high VTE Device Contraindication: N/A - Device Ordered VTE Drug Contraindication: Treatment Not Indicated
[2025-03-25 21:02] LABS: Glucose, Whole Blood 128 mg/dL (60-115)
[2025-03-26] VITALS (7 sets, daily range): BP systolic 130–154; BP diastolic 60–80; PULSE 66–86; RESP 16–20; TEMP 36.4–37.3; O2SAT 97–100
[2025-03-26] MEDS: Fluticasone/Vilanterol 200/25 BLST.W.DEV 1 PUFF INHALE (07:54)
[2025-03-26 07:57] LABS: Glucose, Whole Blood 109 mg/dL (60-115)
[2025-03-26 08:07] LABS: Anion Gap 11 (12-20); Blood Urea Nitrogen 17 mg/dL (9-16); Calcium 8.1 mg/dL (8.4-10.2); Carbon Dioxide 21 mmol/L (22-29); Chloride 108 mmol/L (96-108); Creatinine Clr Calc Pharmacy 38.6; Estimated Glomerular Filt Rate 51; Potassium 3.1 mmol/L (3.3-5.1); Sodium 137 mmol/L (135-145)
[2025-03-26] MEDS: cefEPime HCl/D5W 2 GM/50 ML PIGGYBACK IV ×2 (08:45→21:17)
[2025-03-26] MEDS: Ferrous Sulfate 324 MG TABLET.DR PO (08:45)
[2025-03-26] MEDS: 0.9 % Sodium Chloride Flush 3 ML SYRINGE IVFLUSH ×3 (08:45→21:16)
[2025-03-26 10:31] LABS: Alanine Aminotransferase 31 U/L (0-40); Albumin Level 2.6 g/dL (3.5-5.0); Alkaline Phosphatase 269 U/L (39-117); Aspartate Amino Transferase 79 U/L (5-37); Total Protein 5.6 g/dL (6.5-8.0)
[2025-03-26 11:33] LABS: Glucose, Whole Blood 165 mg/dL (60-115)
--- NOTE | 2025-03-26 15:07 | P.PNIM_ITS ---
Subjective Subjective Date of Service: 03/26/25 Interval History: Blood cultures came back positive for Pseudomonas; will switch antibiotics to cefepime Pt reports unable to retract his foreskin; no significant pain, irritation, or discharge No significant leaking from urostomy; catheter in place draining clear urine Denies nausea, vomiting, abdominal pain Bloating significantly improved, now back to baseline Complains of inability to retract foreskin; no pain, swelling, or discharge Review of Systems Review of Systems: Yes all other systems are reviewed and are negative Physical Exam 2 Exam: Exam: General: AOx3, no acute distress Resp: CTA bilaterally CVS: S1, S2, RR, +murmur GI: +BS, NT, soft, mild distention : Urostomy with catheter in place, draining clear yellow urine; periostomy without significant tenderness. Penis with foreskin unable to retract; no tenderness, swelling, erythema, or discharge noted Skin: Warm, dry Neuro: Cranial nerves II-XII grossly intact bilaterally. Motor grossly intact bilaterally Extremities: No edema Psych: Appropriate affect Vital Signs: Vital Signs: Last Vital Signs Temp 97.5 F 03/26/25 12:00 Pulse 69 03/26/25 12:00 Resp 18 03/26/25 12:00 BP 134/63 03/26/25 12:00 Pulse Ox 98 03/26/25 12:00 O2 Del Method Room Air 03/26/25 12:00 BMI result Body Mass Index 27.1 Objective Data Active Medications Acetaminophen (Acetaminophen 325 Mg Tablet) 975 mg PO Q6H PRN PRN Reason: Pain, Mild 1-3,fever,headache Last Admin: 03/21/25 08:15 Dose: 975 mg Documented By: LINDA Betamethasone Dipropion Augmented (Betamethasone Dip Aug 0.05% Cr 15 Gm Tube) 1 appl TOPICAL BID [facility]; Protocol Bisacodyl (Bisacodyl 5 Mg Tablet.Dr) 5 mg PO BEDTIME [facility] Last Admin: 03/25/25 22:50 Dose: 5 mg Documented By: PEPPER Calcium Carbonate (Calcium Carbonate 750 Mg Tab.Chew) 750 mg PO Q4H PRN PRN Reason: Heartburn Last Admin: 03/23/25 05:11 Dose: 750 mg Documented By: DONNA Dextrose (Dextrose 50 % 25 Gm/50 Ml Syringe) 25 gm IVPUSH Q15M PRN; Protocol PRN Reason: per Hypoglycemia Standing Ord. Ferrous Sulfate (Ferrous Sulfate 324 Mg Tablet.Dr) 324 mg PO DAILY [facility] Last Admin: 03/26/25 08:45 Dose: 324 mg Documented By: VADIM Fluticasone/Vilanterol (Fluticasone/Vilanterol 200/25 Blst.W.Dev) 1 puff INHALE RDAILY [facility] Last Admin: 03/26/25 07:54 Dose: 1 puff Documented By: MARTIN Folic Acid (Folic Acid 1 Mg Tablet) 1 mg PO DAILY [facility] Last Admin: 03/26/25 08:45 Dose: 1 mg Documented By: VADIM Glucose (Glucose Gel 15 Gm Gel..Gram.) 15 gm PO Q15M PRN; Protocol PRN Reason: per Hypoglycemia Standing Ord. Last Admin: 03/23/25 15:56 Dose: 15 gm Documented By: GALLO Cefepime HCl (Maxipime) 2 gm in 50 mls @ 100 mls/hr IV Q12H [facility] Last Infusion: 03/26/25 10:04 Dose: Infused Documented By: VADIM Insulin Human Lispro (Insulin Lispro 100 Unit/Ml 3 Ml Vial) 0 unit SUBCUT QIDACHS [facility]; Protocol Last Admin: 03/26/25 12:18 Dose: 2 unit Documented By: VADIM Magnesium Hydroxide (Milk Of Magnesia 30 Ml Oral.Susp) 30 ml PO DAILY PRN PRN Reason: Constipation Last Admin: 03/24/25 00:19 Dose: 30 ml Documented By: VIRGILIO Melatonin (Melatonin 3 Mg Tablet) 6 mg PO BEDTIME PRN PRN Reason: Insomnia Last Admin: 03/22/25 23:43 Dose: 6 mg Documented By: DONNA Montelukast Sodium (Montelukast Sodium 10 Mg Tablet) 10 mg PO DAILY [facility] Last Admin: 03/26/25 08:45 Dose: 10 mg Documented By: VADIM Ondansetron HCl (Ondansetron Hcl 4 Mg/2 Ml Vial) 4 mg IVPUSH Q8H PRN PRN Reason: Nausea and Vomiting Last Admin: 03/23/25 10:36 Dose: 4 mg Documented By: GALLO Oxycodone HCl (Oxycodone Hcl Immed Release 5 Mg Tablet) 5 mg PO Q6H PRN PRN Reason: Pain, Severe (Pain Scale 7-10) Last Admin: 03/24/25 13:44 Dose: 5 mg Documented By: MAVERICK Prochlorperazine Edisylate (Prochlorperazine Edisylate 10 Mg/2 Ml Vial) 5 mg IV Q6H PRN PRN Reason: Nausea and Vomiting Last Admin: 03/22/25 20:01 Dose: 5 mg Documented By: DONNA Simethicone (Simethicone 80 Mg Tab.Chew) 80 mg PO QIDWMHS PRN PRN Reason: Gas Last Admin: 03/24/25 00:19 Dose: 80 mg Documented By: VIRGILIO Sodium Chloride (0.9 % Sodium Chloride Flush 3 Ml Syringe) 3 ml IVFLUSH QSHIFT [facility] Last Admin: 03/26/25 08:45 Dose: 3 ml Documented By: VADIM Tramadol HCl (Tramadol Hcl 50 Mg Tablet) 50 mg PO Q6H PRN PRN Reason: Pain, Moderate(Pain Scale 4-6) Last Admin: 03/24/25 00:19 Dose: 50 mg Documented By: VIRGILIO Labs 03/25/25 06:41 03/26/25 07:13 Labs: Laboratory Results - last 24 hr 03/25/25 03/25/25 03/26/25 15:32 20:55 07:12 Hold Purple Top SEE NOTE Anion Gap Estim Creat Clear Calc Estimated GFR POC Glucose 130 H 128 H Random Glucose Calcium Total Bilirubin Direct Bilirubin AST ALT Alkaline Phosphatase Total Protein Albumin 03/26/25 03/26/25 03/26/25 07:13 07:51 11:23 Hold Purple Top Anion Gap 11 L Estim Creat Clear Calc 38.6 Estimated GFR 51 POC Glucose 109 165 H Random Glucose 112 Calcium 8.1 L Total Bilirubin 0.5 Direct Bilirubin 0.3 AST 79 H ALT 31 Alkaline Phosphatase 269 H Total Protein 5.6 L Albumin 2.6 L Microbiology Microbiology Results: Microbiology 03/20/25 23:07 Blood Culture - Final Blood - Venous Escherichia coli Pseudomonas aeruginosa Assessment and Plan (1) LUIS (acute kidney injury): Status: Acute Assessment and Plan: 74-year-old male with a past medical history significant for mild intermittent asthma, type 2 diabetes, HLD, HTN, history bladder cancer s/p cystectomy and ileal loop urostomy, with recent admission for urostomy bleed requiring blood transfusion and new diagnosis of liver cirrhosis ?SCHNEIDER, discharged 03/17/25, who presented to the ED due to 2 days of low back pain with fever up to 103.3 and decreased output in his urostomy bag/constipation. severe sepsis secondary to pyelonephritis and bacteremia with urostomy complication ua : pyuria/bacteruria /hematuria leucocytosis improving, tachcardia/tachypenia improving ua positive, blood cultures x2 positive for e. coli sensitive to cefepime; 1/2 positive on 03/26 for Pseudomonas susceptible to cefepime received ceftriaxone x 5 days; will switch to cecepime, started 03/26; infectious disease consult LUIS similar acute lactic acidosis improving, no further trending,bicarb also flactautes abdominopelvic CT with distended ileal conduit and bilateral hydroureteronephrosis, etc. dysfunction of the Judge catheter located within the conduit at the ostomy site. Patchy opacity of the left lower lobe, this could be aspiration or consolidation, follow up to clearing would be helpful. Small amount of ascites and effusions of uncertain etiology. This could be related to the urinary process, 3rd spacing of fluid volume overload, or sequela of portal hypertension. Pt has received treatment for hyperkalemia, also IV fluids Urology following, removed catheter from stoma on 03/22; replaced 03/24 Continue IV fluid, antiemetics, pain management. Phimosis Unable to retract foreskin on 03/26 No pain, swelling, erythema, or discharge Betamethasone 0.05% cream b.i.d. Urology notified, continue cream and follow up outpatient Leaking around urostomy, resolved Judge catheter placed in ostomy by urology on 03/24 urology following Hypokalemia, improving Given oral and IV potassium supplementation Monitor ?LBO, resolved Pt with N/V, abd bloating and left-sided tenderness yesterday KUB concerning for distal large intestine obstruction vs pseudo-obstruction [place] syndrome Was seen by general surgery who recommended ambulation; no need for repeat CT Has been able to tolerate liquid diet, will advance to full; encourage ambulation/OOB Monitor closely LUIS:LUIS secondary to obstruction. ATN from sepsis likely also contributing - improving, almost back to baseline - avoid nephrotoxins when possible - monitor BMP, ivf - nephrology following - follow BMP Hyponatremia, metabolic acidosis - Resolving, sodium 133 - 1.2L fluid restriction - nephrology following Chest heaviness, resolved EKG showing changes in septal leads Serial troponins flat 42.8 and 36.7 Pt currently asymptomatic Likely type 2 in the setting of increased demand Echocardiogram overall reassuring Cardiology consulted, no additional workup or treatment indication at this time Monitor on telemetry Chronic anemia - stable, around baseline - no need for blood transfusion at this time - monitor CBC Elevated LFTs, likely secondary to sepsis patient also undergoing workup with GI outpatient for ?SCHNEIDER cirrhosis continue outpatient follow-up Mild intermittent asthma, no acute exacerbation continue home meds Left lower lobe mass Highly suspicious for malignancy Follow up outpatient with pulmonology T2DM - sliding scale insulin - diabetic diet HLD - continue home meds HTN - normotensive, continue home meds Full code VTE prophylaxis: Pneumoboots due to gross hematuria and recent admission with urostomy bleeding requiring blood transfusion in the setting of anemia Requires continued hospitalization due to IV antibiotics or bacteremia now needed coverage for Pseudomonas as well as resolving LUIS (2) Pyelonephritis: Status: Acute Quality Stroke Does the patient have a stroke diagnosis?: No VTE Prior VTE?: No VTE Risk Level:: Medical - moderate - high VTE Device Contraindication: N/A - Device Ordered VTE Drug Contraindication: Treatment Not Indicated
[2025-03-26 15:58] LABS: Glucose, Whole Blood 109 mg/dL (60-115)
[2025-03-26 21:09] LABS: Glucose, Whole Blood 145 mg/dL (60-115)
[2025-03-26] MEDS: Betamethasone Dip Aug 0.05% Cr 15 GM TUBE 1 APPL TOPICAL (21:16)
[2025-03-27] VITALS (10 sets, daily range): BP systolic 120–184; BP diastolic 60–84; PULSE 59–78; RESP 16–18; TEMP 36.2–37.2; O2SAT 95–100
[2025-03-27] MEDS: oxyCODONE HCl Immed Release 5 MG TABLET PO (07:18)
[2025-03-27] MEDS: 0.9 % Sodium Chloride Flush 3 ML SYRINGE IVFLUSH ×2 (07:18→18:39)
[2025-03-27] MEDS: Ferrous Sulfate 324 MG TABLET.DR PO (07:18)
[2025-03-27] MEDS: cefEPime HCl/D5W 2 GM/50 ML PIGGYBACK IV (07:19)
[2025-03-27] MEDS: Fluticasone/Vilanterol 200/25 BLST.W.DEV 1 PUFF INHALE (07:32)
[2025-03-27 07:56] LABS: Anion Gap 12 (12-20); Blood Urea Nitrogen 13 mg/dL (9-16); Calcium 8.2 mg/dL (8.4-10.2); Carbon Dioxide 19 mmol/L (22-29); Chloride 109 mmol/L (96-108); Creatinine Clr Calc Pharmacy 47.8; Estimated Glomerular Filt Rate > 60; Potassium 3.3 mmol/L (3.3-5.1); Sodium 137 mmol/L (135-145)
[2025-03-27 08:04] LABS: Glucose, Whole Blood 120 mg/dL (60-115)
[2025-03-27 11:48] LABS: Glucose, Whole Blood 185 mg/dL (60-115)
--- NOTE | 2025-03-27 14:23 | MHC.CM.PN ---
PER MD ROUNDS, PT NOT MEDICALLY CLEARED, ID CONSULT PENDING DCP: HOME WITH [facility] PROCESS INITIATED, THEY ARE AWARE OF POSSIBLE DC TOMORROW
--- NOTE | 2025-03-27 15:35 | P.CNID_ITS ---
History of Present Illness Data of Consult Service Date: 03/27/25 Requesting physician: Yvette Bazzi Primary Care Provider: Hilary Jimenez MD HPI Reason for consult: Pseudomonas, E coli blood He presents with fatigue and urinary hesitancy. He has E coli blood and E coli and Pseudomonas urine. Review of Systems 2 Review of Systems: Yes all other systems are reviewed and are negative PMFSH Past Medical History Medical History History of bladder cancer Abdominal distention Cirrhosis of liver Complication of urostomy HTN (hypertension) Acute hyponatremia Hydronephrosis Bladder cancer Asthma Diabetes Bladder cancer Incomplete emptying of bladder due to benign prostatic hyperplasia Complicated urinary tract infection Surgical History Surgical History History of surgery History of ileal conduit Social History Social History Household Members: Family Housing: House Are you a primary care management coordinator to a significant other at home: No Do you presently have visiting nurse or other home services: Yes Alcohol intake: never Comment: bedside Patient Tobacco Use Status: Never used Tobacco Advance Directives Date on File: 03/12/25 service: No Current occupational status: retired Meds Allergies Allergy/AdvReac Type Severity Reaction Status Date / Time aspirin Allergy Unknown Verified 03/20/25 23:11 Beta-Blockers AdvReac Unknown Verified 03/20/25 23:11 (Beta-Adrenergic Bloc ibuprofen AdvReac Unknown Verified 03/20/25 23:11 Active Medications: Current Medications Acetaminophen (Acetaminophen 325 Mg Tablet) 975 mg PO Q6H PRN PRN Reason: Pain, Mild 1-3,fever,headache Last Admin: 03/26/25 17:49 Dose: 975 mg Betamethasone Dipropion Augmented (Betamethasone Dip Aug 0.05% Cr 15 Gm Tube) 1 appl TOPICAL BID STEVEN; Protocol Last Admin: 03/27/25 07:39 Dose: Not Given Bisacodyl (Bisacodyl 5 Mg Tablet.Dr) 5 mg PO BEDTIME STEVEN Last Admin: 03/26/25 21:16 Dose: 5 mg Calcium Carbonate (Calcium Carbonate 750 Mg Tab.Chew) 750 mg PO Q4H PRN PRN Reason: Heartburn Last Admin: 03/23/25 05:11 Dose: 750 mg Dextrose (Dextrose 50 % 25 Gm/50 Ml Syringe) 25 gm IVPUSH Q15M PRN; Protocol PRN Reason: per Hypoglycemia Standing Ord. Ferrous Sulfate (Ferrous Sulfate 324 Mg Tablet.Dr) 324 mg PO DAILY [facility] Last Admin: 03/27/25 07:18 Dose: 324 mg Fluticasone/Vilanterol (Fluticasone/Vilanterol 200/25 Blst.W.Dev) 1 puff INHALE RDAILY [facility] Last Admin: 03/27/25 07:32 Dose: 1 puff Folic Acid (Folic Acid 1 Mg Tablet) 1 mg PO DAILY [facility] Last Admin: 03/27/25 07:18 Dose: 1 mg Glucose (Glucose Gel 15 Gm Gel..Gram.) 15 gm PO Q15M PRN; Protocol PRN Reason: per Hypoglycemia Standing Ord. Last Admin: 03/23/25 15:56 Dose: 15 gm Cefepime HCl (Maxipime) 2 gm in 50 mls @ 100 mls/hr IV Q12H [facility] Last Infusion: 03/27/25 07:52 Dose: Infused Insulin Human Lispro (Insulin Lispro 100 Unit/Ml 3 Ml Vial) 0 unit SUBCUT QIDACHS [facility]; Protocol Last Admin: 03/27/25 11:50 Dose: 2 unit Magnesium Hydroxide (Milk Of Magnesia 30 Ml Oral.Susp) 30 ml PO DAILY PRN PRN Reason: Constipation Last Admin: 03/24/25 00:19 Dose: 30 ml Melatonin (Melatonin 3 Mg Tablet) 6 mg PO BEDTIME PRN PRN Reason: Insomnia Last Admin: 03/22/25 23:43 Dose: 6 mg Montelukast Sodium (Montelukast Sodium 10 Mg Tablet) 10 mg PO DAILY [facility] Last Admin: 03/27/25 07:18 Dose: 10 mg Ondansetron HCl (Ondansetron Hcl 4 Mg/2 Ml Vial) 4 mg IVPUSH Q8H PRN PRN Reason: Nausea and Vomiting Last Admin: 03/23/25 10:36 Dose: 4 mg Oxycodone HCl (Oxycodone Hcl Immed Release 5 Mg Tablet) 5 mg PO Q6H PRN PRN Reason: Pain, Severe (Pain Scale 7-10) Last Admin: 03/27/25 07:18 Dose: 5 mg Prochlorperazine Edisylate (Prochlorperazine Edisylate 10 Mg/2 Ml Vial) 5 mg IV Q6H PRN PRN Reason: Nausea and Vomiting Last Admin: 03/22/25 20:01 Dose: 5 mg Simethicone (Simethicone 80 Mg Tab.Chew) 80 mg PO QIDWMHS PRN PRN Reason: Gas Last Admin: 03/24/25 00:19 Dose: 80 mg Sodium Chloride (0.9 % Sodium Chloride Flush 3 Ml Syringe) 3 ml IVFLUSH QSHIFT STEVEN Last Admin: 03/27/25 07:18 Dose: 3 ml Tramadol HCl (Tramadol Hcl 50 Mg Tablet) 50 mg PO Q6H PRN PRN Reason: Pain, Moderate(Pain Scale 4-6) Last Admin: 03/24/25 00:19 Dose: 50 mg Home Medications ?Medication ?Instructions ?Recorded ?Confirmed ?Last Taken ?Type blood sugar diagnostic (FreeStyle #10 ea 04/18/2112/09 Unknown History Lite Strips) montelukast 10 mg tablet 10 mg PO DAILY 04/18/2103/1003/20/25 History lancets 28 gauge (FreeStyle #100 ea 06/24/21 01/05/24 Unknown History Lancets) folic acid 1 mg tablet 1 mg PO DAILY 12/10/2103/2103/20/25 History albuterol sulfate 90 mcg/actuation 2 puff PO QID PRN S hortness Of 02/08/22 03/21/25 Unknown History aerosol inhaler Breath atorvastatin 20 mg tablet 20 mg PO BEDTIME 03/01/2503/19/25 History ferrous sulfate 325 mg (65 mg 325 mg PO DAILY 03/01/25 03/21/25 03/20/25 History iron) tablet (iron) metformin 500 mg tablet 500 mg PO BID 03/01/2503/2103/20/25 History sitagliptin phosphate 50 mg tablet 50 mg PO DAILY 02/0803/21/25 03/20/25 History (Januvia) telmisartan 20 mg tablet 20 mg PO DAILY 03/01/2503/1003/20/25 History bisacodyl 5 mg tablet,delayed 5 mg PO DAILY constipati on 03/21/25 03/21/25 03/20/25 History release (Dulcolax (bisacodyl)) fluticasone 232 mcg-salmeterol 14 1 inh inhalation BID 03/21/25 03/21/25 03/20/25 History mcg/actuation breath activated powdr Physical Exam 2 Vital Signs: Vital Signs: Last Vital Signs Temp 98.2 F 03/27/25 12:00 Pulse 69 03/27/25 12:00 Resp 18 03/27/25 12:00 BP 168/72 H 03/27/25 12:14 Pulse Ox 99 03/27/25 12:00 O2 Del Method Room Air 03/27/25 12:00 BMI result Body Mass Index 27.1 Const: General: cooperative HEENT: Head: Yes normal to inspection Face and sinus: Yes normal facial exam Mouth: Normal oral and palatal mucosa present Teeth and gingiva: d entition normal Eyes: General: appearance normal, both eyes and all related structures P upils: Equal, round and reactive pupils present Resp: Effort & Inspection: normal respiratory effort Cardio: Rate: regular rate Rhythm: regular rhythm GI: Palpation (GI): Soft to palpation and nontender : General: Yes no CVA tenderness Back/Spine/Pelvis: Back: no CVA tenderness Skin: General skin exam: no rashes or lesions noted Neuro: General: moves all extremities Cranial nerves: Yes Equal, round and reactive pupils present Extrem: General: Yes normal to inspection Psych: Appearance: grossly normal Results Labs 03/25/25 06:41 03/27/25 06:58 Labs: BMP 03/27/25 06:58 Sodium 137 Potassium 3.3 Chloride 109 H Carbon Dioxide 19 L BUN 13 Creatinine 1.09 Calcium 8.2 L Microbiology Microbiology Results: Microbiology 03/20/25 23:07 Blood - Venous Blood Culture - Final Escherichia coli Pseudomonas aeruginosa 03/20/25 23:21 Blood - Venous Blood Culture - Final Escherichia coli 03/20/25 Unknown Urine clean catch - Clean Catch Midstream Urine Culture - Final Assessment and Plan (1) LUIS (acute kidney injury): Status: Acute (2) Sepsis: Qualifiers: Acute renal failure type: unspecified Sepsis acute organ dysfunction status: with acute organ dysfunction Sepsis type: sepsis due to unspecified organism Severe sepsis acute organ dysfunction type: acute renal failure Janina britt sepsis shock status: without septic shock Qualified Code(s): A41.9 - Sepsis, unspecified organism; R65.20 - Severe sepsis without septic shock; N17.9 - Acute kidney failure, unspecified Status: Acute Plan Can give po Levaquin and cephalosporin or amoxicillin for total 14 days. Follow Urology.
[2025-03-27 16:02] LABS: Glucose, Whole Blood 96 mg/dL (60-115)
--- NOTE | 2025-03-27 17:29 | HO.PM.IMPN ---
Subjective Subjective Date of Service: 03/27/25 Interval History: Very pleasant gentleman. No new complaints today. Feels well overall Review of Systems Review of Systems: Yes all other systems are reviewed and are negative Physical Exam Exam: Exam: General: A&O x3, oriented to time place person and situation, comfortable, no pain Cardiac: S1, S2 auscultated with no S3/4, no MRG. Well perfused. Respiratory: Normal breath sounds auscultated throughout all lung zones, without wheezing, rales. Normal rate. GI/ : No abdominal pain on palpation, no masses or distentions. Urostomy tube noted. MSK: Normal ambulation without pain at bony prominences or musculature Neurological: Normal neurological examination on overview, without obvious CN II-XII abnormalities. Vital Signs: Vital Signs: Last Vital Signs Temp 97.2 F 03/27/25 16:00 Pulse 66 03/27/25 16:00 Resp 18 03/27/25 16:00 BP 178/84 H 03/27/25 16:00 Pulse Ox 100 03/27/25 16:00 O2 Del Method Room Air 03/27/25 16:00 BMI result Body Mass Index 27.1 Objective Data Active Medications Acetaminophen (Acetaminophen 325 Mg Tablet) 975 mg PO Q6H PRN PRN Reason: Pain, Mild 1-3,fever,headache Last Admin: 03/26/25 17:49 Dose: 975 mg Documented By: VADIM Betamethasone Dipropion Augmented (Betamethasone Dip Aug 0.05% Cr 15 Gm Tube) 1 appl TOPICAL BID STEVEN; Protocol Last Admin: 03/27/25 07:39 Dose: Not Given Documented By: MAVERICK Non-Admin Reason: given by prev rn Bisacodyl (Bisacodyl 5 Mg Tablet.) 5 mg PO BEDTIME STEVEN Last Admin: 03/26/25 21:16 Dose: 5 mg Documented By: SANDRA Calcium Carbonate (Calcium Carbonate 750 Mg Tab.Chew) 750 mg PO Q4H PRN PRN Reason: Heartburn Last Admin: 03/23/25 05:11 Dose: 750 mg Documented By: DONNA Dextrose (Dextrose 50 % 25 Gm/50 Ml Syringe) 25 gm IVPUSH Q15M PRN; Protocol PRN Reason: per Hypoglycemia Standing Ord. Ferrous Sulfate (Ferrous Sulfate 324 Mg Tablet.Dr) 324 mg PO DAILY [facility] Last Admin: 03/27/25 07:18 Dose: 324 mg Documented By: MAVERICK Fluticasone/Vilanterol (Fluticasone/Vilanterol 200/25 Blst.W.Dev) 1 puff INHALE RDAILY [facility] Last Admin: 03/27/25 07:32 Dose: 1 puff Documented By: NICO Folic Acid (Folic Acid 1 Mg Tablet) 1 mg PO DAILY [facility] Last Admin: 03/27/25 07:18 Dose: 1 mg Documented By: MAVERICK Glucose (Glucose Gel 15 Gm Gel..Gram.) 15 gm PO Q15M PRN; Protocol PRN Reason: per Hypoglycemia Standing Ord. Last Admin: 03/23/25 15:56 Dose: 15 gm Documented By: GALLO Cefepime HCl (Maxipime) 2 gm in 50 mls @ 100 mls/hr IV Q12H [facility] Last Infusion: 03/27/25 07:52 Dose: Infused Documented By: MAVERICK Insulin Human Lispro (Insulin Lispro 100 Unit/Ml 3 Ml Vial) 0 unit SUBCUT QIDACHS [facility]; Protocol Last Admin: 03/27/25 11:50 Dose: 2 unit Documented By: MAVERICK Magnesium Hydroxide (Milk Of Magnesia 30 Ml Oral.Susp) 30 ml PO DAILY PRN PRN Reason: Constipation Last Admin: 03/24/25 00:19 Dose: 30 ml Documented By: VIRGILIO Melatonin (Melatonin 3 Mg Tablet) 6 mg PO BEDTIME PRN PRN Reason: Insomnia Last Admin: 03/22/25 23:43 Dose: 6 mg Documented By: DONNA Montelukast Sodium (Montelukast Sodium 10 Mg Tablet) 10 mg PO DAILY [facility] Last Admin: 03/27/25 07:18 Dose: 10 mg Documented By: MAVERICK Ondansetron HCl (Ondansetron Hcl 4 Mg/2 Ml Vial) 4 mg IVPUSH Q8H PRN PRN Reason: Nausea and Vomiting Last Admin: 03/23/25 10:36 Dose: 4 mg Documented By: GALLO Oxycodone HCl (Oxycodone Hcl Immed Release 5 Mg Tablet) 5 mg PO Q6H PRN PRN Reason: Pain, Severe (Pain Scale 7-10) Last Admin: 03/27/25 07:18 Dose: 5 mg Documented By: MAVERICK Prochlorperazine Edisylate (Prochlorperazine Edisylate 10 Mg/2 Ml Vial) 5 mg IV Q6H PRN PRN Reason: Nausea and Vomiting Last Admin: 03/22/25 20:01 Dose: 5 mg Documented By: DONNA Simethicone (Simethicone 80 Mg Tab.Chew) 80 mg PO QIDWMHS PRN PRN Reason: Gas Last Admin: 03/24/25 00:19 Dose: 80 mg Documented By: VIRGILIO Sodium Chloride (0.9 % Sodium Chloride Flush 3 Ml Syringe) [facility] Last Admin: 03/27/25 07:18 Dose: 3 ml Documented By: MAVERICK Tramadol HCl (Tramadol Hcl 50 Mg Tablet) 50 mg PO Q6H PRN PRN Reason: Pain, Moderate(Pain Scale 4-6) Last Admin: 03/24/25 00:19 Dose: 50 mg Documented By: VIRGILIO Labs 03/25/25 06:41 03/27/25 06:58 Labs: Laboratory Results - last 24 hr 03/26/25 03/27/25 03/27/25 21:05 06:58 07:54 Hold Purple Top SEE NOTE Anion Gap 12 Estim Creat Clear Calc 47.8 Estimated GFR > 60 POC Glucose 145 H 120 H Random Glucose 107 Calcium 8.2 L 03/27/25 03/27/25 11:39 15:53 Hold Purple Top Anion Gap Estim Creat Clear Calc Estimated GFR POC Glucose 185 H 96 Random Glucose Calcium Assessment and Plan (1) Severe sepsis: Status: Acute (2) Pyelonephritis: Status: Acute (3) Acute blood loss anemia: Status: Acute (4) Complication of urostomy: Status: Acute (5) LUIS (acute kidney injury): Status: Acute (6) Hyponatremia: Status: Acute Plan 74-year-old male, with a background history of type 2 diabetes, hypertension, hyperlipidemia, bladder cancer status post cystectomy and ileal loop urostomy, recent admission for urostomy bleeding requiring blood transfusion, new diagnosis hepatic cirrhosis/nonalcoholic steatohepatitis, discharged 03/17/2025, presenting with complaints of lower back pain for 2 days, pyrexia and oliguria, admitted with severe sepsis secondary to pyelonephritis with bacteremia secondary to urostomy complication. Severe sepsis Pyelonephritis Bacteremia: E coli and Pseudomonas Urostomy complication Patient presented untreated with evidence of severe sepsis, with blood cultures positive for 2 organisms E coli and Pseudomonas. Infectious diseases was consulted for recommendations. After course of ceftriaxone, cefepime, the patient was transitioned to oral Levaquin and amoxicillin for 14 days as per Infectious disease's recommendations. Urology as follows closely, recommendations and input greatly appreciated; catheter removed 03/22 replaced 03/24. Phimosis Unable to retract foreskin on 03/26 No pain, swelling, erythema, or discharge Betamethasone 0.05% cream b.i.d. Urology notified, continue cream and follow up outpatient Leaking around urostomy, resolved Judge catheter placed in ostomy by urology on 03/24 urology following Hypokalemia, improving Given oral and IV potassium supplementation Monitor ?LBO, resolved Pt with N/V, abd bloating and left-sided tenderness yesterday KUB concerning for distal large intestine obstruction vs pseudo-obstruction Simpson syndrome Was seen by general surgery who recommended ambulation; no need for repeat CT Has been able to tolerate liquid diet, will advance to full; encourage ambulation/OOB Monitor closely LUIS:LUIS secondary to obstruction. ATN from sepsis likely also contributing - improving, almost back to baseline - avoid nephrotoxins when possible - monitor BMP, ivf - nephrology following - follow BMP Hyponatremia, metabolic acidosis - Resolving, sodium 133 - 1.2L fluid restriction - nephrology following Chest heaviness, resolved EKG showing changes in septal leads Serial troponins flat 42.8 and 36.7 Pt currently asymptomatic Likely type 2 in the setting of increased demand Echocardiogram overall reassuring Cardiology consulted, no additional workup or treatment indication at this time Monitor on telemetry Chronic anemia - stable, around baseline - no need for blood transfusion at this time - monitor CBC Elevated LFTs, likely secondary to sepsis patient also undergoing workup with GI outpatient for ?SCHNEIDER cirrhosis continue outpatient follow-up Mild intermittent asthma, no acute exacerbation continue home meds Left lower lobe mass Highly suspicious for malignancy Follow up outpatient with pulmonology T2DM - sliding scale insulin - diabetic diet HLD - continue home meds HTN - normotensive, continue home meds QUALITY [employer] - VTE: SCDs - CODE STATUS: Full code - DIET: Regular Total time managing care of this patient today: 45 minutes. Quality Stroke Does the patient have a stroke diagnosis?: No VTE Prior VTE?: No VTE Risk Level:: Medical - moderate - high VTE Device Contraindication: N/A - Device Ordered VTE Drug Contraindication: Treatment Not Indicated
[2025-03-27 20:25] LABS: Glucose, Whole Blood 161 mg/dL (60-115)
[2025-03-27] MEDS: Betamethasone Dip Aug 0.05% Cr 15 GM TUBE 1 APPL TOPICAL (20:29)
[2025-03-28 04:00] VITALS: BP 159/72; PULSE 70; RESP 18; TEMP 36.7; O2SAT 96
[2025-03-28 07:36] LABS: Glucose, Whole Blood 90 mg/dL (60-115)
[2025-03-28] MEDS: Fluticasone/Vilanterol 200/25 BLST.W.DEV 1 PUFF INHALE (07:42)
[2025-03-28 07:43] VITALS: PULSE 70; RESP 18; O2SAT 97
[2025-03-28 08:00] VITALS: BP 134/65; PULSE 65; RESP 20; TEMP 36.2; O2SAT 99
[2025-03-28] MEDS: Ferrous Sulfate 324 MG TABLET.DR PO (08:47)
[2025-03-28] MEDS: Betamethasone Dip Aug 0.05% Cr 15 GM TUBE 1 APPL TOPICAL (08:47)
[2025-03-28] MEDS: 0.9 % Sodium Chloride Flush 3 ML SYRINGE IVFLUSH (08:48)
--- NOTE | 2025-03-28 10:51 | P.F2F_ITS ---
Service Date Service Date: 03/28/25 Encounter Date of encounter: 03/28/25 Encounter: 74-year-old male, with a background history of type 2 diabetes, hypertension, hyperlipidemia, bladder cancer status post cystectomy and ileal loop urostomy, recent admission for urostomy bleeding requiring blood transfusion, new diagnosis hepatic cirrhosis/nonalcoholic steatohepatitis, discharged 03/17/2025, presenting with complaints of lower back pain for 2 days, pyrexia and oliguria, admitted with severe sepsis secondary to pyelonephritis with bacteremia secondary to urostomy complication. Reasons for Services Signs and symptoms assessed: Complicated admission with complaints of chronic lower back pain, arthralgia, pyrexia, suffering with sepsis during prolonged hospital stay; requiring IV antibiotics transitioned to oral. Suffered complications with urostomy and ileal loop. Reason for penitentiary: wound care, postoperative assessment and/or care, medication management and medication treatment Reason for physical therapy: home safety and mobility, therapeutic exercises, gait/transfer training, assess need for DME, ADL training and energy conservation Reason for occupational therapy: home safety and mobility, therapeutic exercises, gait/transfer training, assess need for DME, ADL training and energy conservation MD Overseeing Care: Yvette Bazzi Homebound: Leaving the home is medically contraindicated at this time without the asist of a device and/or another person due th the listed conditions above and below. Reason homebound: weakness related to hospital stay Certification: Based on the above findings, I certify that this patient is confined to the home and needs intermittent penitentiary care, physical therapy and/or speech therapy, or continues to need occupational therapy. The patient is under my care, and I have initiated the establishment of the plan of care. The patient will be followed by a physician who will periodically review the plan of care. Time Spent With Patient Time: Total time managing care of this patient today 15 minutes.
[2025-03-28 11:17] VITALS: BP 144/63; PULSE 69; RESP 20; TEMP 36.3; O2SAT 99
[2025-03-28 11:35] LABS: Glucose, Whole Blood 154 mg/dL (60-115)
--- NOTE | 2025-03-28 11:51 | P.DS_ITS ---
DS: Providers Provider Date of Service: 03/21/25 Date of admission: 03/21/25 04:50 Date of discharge: 03/28/25 Primary care physician: Hilary Jimenez MD Consults: 03/21/25 06:06 Consult to Urology Routine Consulting Provider: Mauro Narayan Reason for consultation: urostomy lauren displaced? UTI Has provider been notified: No 03/21/25 09:31 Consult to Wound Care Routine Reason for consultation: left forearm abrasion. 03/21/25 23:26 Consult to Nephrology Routine Consulting Provider: [facility] Reason for consultation: worsening cr Has provider been notified: No 03/23/25 10:54 Consult to Cardiology Routine Consulting Provider: [facility] Reason for consultation: Trop with delta, EKG changes (?septal infarct) 03/23/25 10:56 Consult to General Surgery Routine Consulting Provider: [facility] Reason for consultation: ?SBO 03/26/25 07:43 Consult to Infectious Diseases Routine Consulting Provider: [facility] Reason for consultation: Pseudomonas bacteremia Attending physician on discharge: Yvette Bazzi DS: Diagnosis Discharge Diagnosis (1) Severe sepsis: Status: Acute (2) Pyelonephritis: Status: Acute (3) Acute blood loss anemia: Status: Acute (4) Complication of urostomy: Status: Acute (5) LUIS (acute kidney injury): Status: Acute (6) Hyponatremia: Status: Acute DS: Summary Hospital Course Hospital Course: 74-year-old male, with a background history of type 2 diabetes, hypertension, hyperlipidemia, bladder cancer status post cystectomy and ileal loop urostomy, recent admission for urostomy bleeding requiring blood transfusion, new diagnosis hepatic cirrhosis/nonalcoholic steatohepatitis, discharged 03/17/2025, presenting with complaints of lower back pain for 2 days, pyrexia and oliguria, admitted with severe sepsis secondary to pyelonephritis with bacteremia secondary to urostomy complication. Severe sepsis Pyelonephritis Bacteremia: E coli and Pseudomonas Urostomy complication Patient presented untreated with evidence of severe sepsis, with blood cultures positive for 2 organisms E coli and Pseudomonas. Infectious diseases was consulted for recommendations. After course of ceftriaxone, cefepime, the patient was transitioned to oral Levaquin and amoxicillin for 14 days as per Infectious disease's recommendation s. Urology as follows closely, recommendations and input greatly appreciated; catheter removed 03/22 replaced 03/24. Phimosis Unable to retract foreskin on 03/26 No pain, swelling, erythema, or discharge Betamethasone 0.05% cream b.i.d. Urology notified, continue cream and follow up outpatient LBO, resolved Pt with N/V, abd bloating and left-sided tenderness yesterday KUB concerning for distal large intestine obstruction vs pseudo-obstruction Randolph syndrome Was seen by general surgery who recommended ambulation; no need for repeat CT Has been able to tolerate liquid diet, will advance to full; encourage ambulation/OOB Monitor closely Acute kidney injury secondary to obstruction (postobstructive and intra renal LUIS) - resolved Had superimposed metabolic acidosis and hyponatremia, which have since resolved Left lower lobe mass Highly suspicious for malignancy Follow up outpatient with pulmonology Status at Discharge Cognitive/behavioral status at discharge: Alert and oriented to person place and time Functional status at discharge: independent ambulation Overall status at discharge: patient is back to baseline Time Attestation Total time managing care of this patient today: 35 mintues. Discharge Coordination Time (in mins): 15 Quality: Safe Use of Opioids Does Pt have an Active Cancer Diagnosis on the Problem List?: No Quality: Stroke Does the patient have a stroke diagnosis?: No Physical Exam Exam: Exam: General: A&O x3, oriented to time place person and situation, comfortable, no pain Cardiac: S1, S2 auscultated with no S3/4, no MRG. Well perfused. Respiratory: Normal breath sounds auscultated throughout all lung zones, without wheezing, rales. Normal rate. GI/ : No abdominal pain on palpation, no masses or distentions. Urostomy tube in place right lower quadrant MSK: Normal ambulation without pain at bony prominences or musculature Neurological: Normal neurological examination on overview, without obvious CN II-XII abnormalities. Vital Signs: Vital Signs: Last Vital Signs Temp 97.3 F 03/28/25 11:17 Pulse 69 03/28/25 11:17 Resp 20 03/28/25 11:17 BP 144/63 H 03/28/25 11:17 Pulse Ox 99 03/28/25 11:17 O2 Del Method Room Air 03/28/25 11:17 BMI result Body Mass Index 27.1 DS: Data Data Completed and Pending Completed studies during hospitalization [Text1]: Procedures Inspection of Bladder, Via Natural or Artificial Opening Endoscopic (03/01/25) Repair Abdominal Wall, Stoma, External Approach (03/01/25) Repair Small Intestine, Open Approach (03/14/25) Transfusion of Nonautologous Platelets into Peripheral Vein, Percutaneous Approach (03/14/25) Transfusion of Nonautologous Red Blood Cells into Peripheral Vein, Percutaneous Approach (03/14/25) Labs on day of discharge: Laboratory Results - last 24 hr 03/27/25 03/27/25 03/28/25 15:53 20:19 07:32 POC Glucose 96 161 H 90 03/28/25 11:31 POC Glucose 154 H Discharge Plan Discharge Anticipated Discharge Date/Time: 03/28/25 12:05 Patient Disposition: Home Health Service Discharge Diagnosis: Severe sepsis secondary to pyelonephritis with bacteremia secondary to urostomy complication; admission further complicated by LUIS, type 2 demand NSTEMI, distal large intestine obstruction versus pseudo-obstruction, acute on chronic anemia, an incidental left lobe mass Referrals: Hilary Jimenez MD [Primary Care Provider, Internal Medicine] - 1 Week Discharge Medications: New levofloxacin 750 mg Tablet 750 mg PO Q48H 10 Days Qty: 5 0RF amoxicillin-pot clavulanate 500-125 mg Tablet 1 tab PO Q12H 10 Days Qty: 20 0RF Continued (DME) MicroHesive Stoma Paste Paste See Rx Instructions .Route Qty: 60 5RF Rx Instructions: Securi-T stoma paste (DME) Stomahesive Skin Barrier 4 X 4 wafer See Rx Instructions .Route Qty: 30 1RF Rx Instructions: Securi-T [facility] [id number] - change every 3 days (DME) Assura Urostomy Pouch 10 misc See Rx Instructions .Route Qty: 10 4RF Rx Instructions: Securi-T 45mm urostomy bag [id number] albuterol sulfate 90 mcg/actuation HFA aerosol inhaler 2 puff PO QID PRN (Reason: Shortness Of Breath) fluticasone propion-salmeterol 232-14 mcg/actuation aerosol powdr breath activated 1 inh INHALATION BID bisacodyl [Dulcolax (bisacodyl)] 5 mg tablet,delayed release (DR/EC) 5 mg PO DAILY metformin 500 mg tablet 500 mg PO BID atorvastatin 20 mg tablet 20 mg PO BEDTIME telmisartan 20 mg tablet 20 mg PO DAILY Januvia 50 mg tablet 50 mg PO DAILY ferrous sulfate [iron] 325 mg (65 mg iron) Tablet 325 mg PO DAILY docusate sodium [Colace] 100 mg capsule 100 mg PO DAILY PRN (Reason: constipation) Qty: 30 0RF montelukast 10 mg tablet 10 mg PO DAILY (DME) FreeStyle Lite Strips Strip See Rx Instructions Not Applicable DAILY Qty: 10 Rx Instructions: As directed (DME) lancets [FreeStyle Lancets] 28 gauge misc See Rx Instructions topical BID Qty: 100 Rx Instructions: As directed folic acid 1 mg tablet 1 mg PO DAILY Discharge Orders: Discharge Order (Routine); Ordered 03/28/25 Ordered By: Yvette Bazzi Diet: Diabetic diet Activity on Discharge: As tolerated Stand Alone Forms: Patient Portal Discharge page Print Language: Albanian Care Plan Goals: Follow-up with PCP 1 week after discharge Follow up with outpatient Neurology Follow-up with CT chest regarding left lower lobe mass & pulmonology Follow-up outpatient hepatology Health Concerns: Type 2 diabetes mellitus History of bladder cancer status post cystectomy and ileal loop urostomy New diagnosis of hepatic cirrhosis Severe multi organism sepsis (E coli/Pseudomonas) Type 2 demand NSTEMI New finding left lower lobe mass Plan of Treatment: Continue antibiotics until discontinuation Outpatient follow-up Assessment: Patient is stable. Alert & oriented x3.
--- NOTE | 2025-03-28 12:45 | MHC.CM.PN ---
Second IMM, Pt. has been medically cleared to [place], He will go home via private transport and have home care services from [facility].
== END 2025-03-28 13:25 | disposition home health service (06) | DRG 871 ==
LOC: HO.ED 03-21 05:21 → HO.EDOVER 03-21 05:31 → HO.S3 03-21 07:40 → HO.IMC 03-22 01:41
PROVIDERS: Internal Medicine; Nurse Practitioner Family; Physician Assistant; Student in an Organized Health Care Education/Training Program; Admitting Provider Student in an Organized Health Care Education/Training Program; Emergency Provider Emergency Medicine; PCP Internal Medicine; Visit Provider Hospitalist
DX: A41.9 Sepsis, unspecified organism (principal); N17.0 Acute kidney failure with tubular necrosis; N13.6 Pyonephrosis; E87.1 Hypo-osmolality and hyponatremia; C34.32 Malignant neoplasm of lower lobe, left bronchus or lung; K56.7 Ileus, unspecified; E78.5 Hyperlipidemia, unspecified; I10 Essential (primary) hypertension; B96.5 Pseudomonas (aeruginosa) (mallei) (pseudomallei) as the cause of diseases classified elsewhere; E87.6 Hypokalemia; K75.81 Nonalcoholic steatohepatitis (NASH); K59.00 Constipation, unspecified; N47.1 Phimosis; T83.098A Other mechanical complication of other urinary catheter, initial encounter; E87.5 Hyperkalemia; R31.0 Gross hematuria; B96.20 Unspecified Escherichia coli [E. coli] as the cause of diseases classified elsewhere; D64.9 Anemia, unspecified; R65.20 Severe sepsis without septic shock; J45.20 Mild intermittent asthma, uncomplicated; K74.69 Other cirrhosis of liver; Z85.51 Personal history of malignant neoplasm of bladder; Z79.84 Long term (current) use of oral hypoglycemic drugs; Z79.899 Other long term (current) drug therapy
CPT/HCPCS: 36415; 74018; 74176; 80048; 80053; 80076; 81001; 82947; 83605; 83735; 83935; 84100; 84300; 84484; 85007; 85025; 85027; 87040; 87077; 87086; 87186; 87205; 93005; 93306; 97161; 99285; J0131; J0613; J0692; J0696; J0737; J2270; J2405; J3374; J3480; J7120; Q9957

== ENCOUNTER → 2025-03-21 01:18 | Outpatient (BNV) | payer OTHER, SELFPAY | PROVIDERS: Emergency Provider Emergency Medicine; Visit Provider Radiology Diagnostic Radiology | DX: N13.30 Unspecified hydronephrosis (principal) | CPT/HCPCS: 74176 ==

== ENCOUNTER 2025-03-21 04:50 | Outpatient (BNV) | payer OTHER, SELFPAY | END 2025-03-24 00:25 | PROVIDERS: Admitting Provider Student in an Organized Health Care Education/Training Program; Emergency Provider Emergency Medicine; PCP Internal Medicine; Visit Provider Internal Medicine Cardiovascular Disease | DX: I45.10 Unspecified right bundle-branch block (principal); I49.3 Ventricular premature depolarization; I25.2 Old myocardial infarction | CPT/HCPCS: 93010 ==

== ENCOUNTER 2025-03-21 04:50 | Outpatient (BNV) | payer OTHER, SELFPAY | END 2025-03-23 10:55 | PROVIDERS: Admitting Provider Student in an Organized Health Care Education/Training Program; Emergency Provider Emergency Medicine; PCP Internal Medicine; Visit Provider Internal Medicine Cardiovascular Disease | DX: I42.2 Other hypertrophic cardiomyopathy (principal); Q23.81 Bicuspid aortic valve; I34.0 Nonrheumatic mitral (valve) insufficiency; I27.20 Pulmonary hypertension, unspecified; I35.0 Nonrheumatic aortic (valve) stenosis; I51.89 Other ill-defined heart diseases | CPT/HCPCS: 93306 ==

== ENCOUNTER 2025-03-21 04:50 | Outpatient (BNV) | payer OTHER, SELFPAY | END 2025-03-23 09:40 | PROVIDERS: Admitting Provider Student in an Organized Health Care Education/Training Program; Emergency Provider Emergency Medicine; PCP Internal Medicine; Visit Provider Radiology Diagnostic Radiology | DX: R14.0 Abdominal distension (gaseous) (principal) | CPT/HCPCS: 74018 ==

== ENCOUNTER 2025-03-21 04:50 | Outpatient (BNV) | payer OTHER, SELFPAY | END 2025-03-21 23:43 | PROVIDERS: Admitting Provider Student in an Organized Health Care Education/Training Program; Emergency Provider Emergency Medicine; PCP Internal Medicine; Visit Provider Internal Medicine Cardiovascular Disease | DX: R00.0 Tachycardia, unspecified (principal) | CPT/HCPCS: 93010 ==

== ENCOUNTER 2025-03-21 04:50 | Outpatient (BNV) | payer OTHER, SELFPAY | END 2025-03-22 | PROVIDERS: Admitting Provider Student in an Organized Health Care Education/Training Program; Emergency Provider Emergency Medicine; PCP Internal Medicine; Visit Provider Internal Medicine Cardiovascular Disease | DX: I45.10 Unspecified right bundle-branch block (principal); I44.4 Left anterior fascicular block | CPT/HCPCS: 93010 ==

== ENCOUNTER → 2025-03-21 04:50 | Outpatient (BNV) | payer OTHER, SELFPAY | PROVIDERS: Admitting Provider Student in an Organized Health Care Education/Training Program; Emergency Provider Emergency Medicine; PCP Internal Medicine; Visit Provider Nurse Practitioner Family | DX: N17.9 Acute kidney failure, unspecified (principal); A41.9 Sepsis, unspecified organism; R65.20 Severe sepsis without septic shock; R91.8 Other nonspecific abnormal finding of lung field; E87.1 Hypo-osmolality and hyponatremia | CPT/HCPCS: 99222; 99232 ==

== ENCOUNTER → 2025-03-21 04:50 | Outpatient (BNV) | payer OTHER, SELFPAY | PROVIDERS: Admitting Provider Student in an Organized Health Care Education/Training Program; Emergency Provider Emergency Medicine; PCP Internal Medicine; Visit Provider Internal Medicine Cardiovascular Disease | DX: R79.89 Other specified abnormal findings of blood chemistry (principal) | CPT/HCPCS: 99222 ==

== ENCOUNTER → 2025-03-21 04:50 | Outpatient (BNV) | payer OTHER, SELFPAY | PROVIDERS: Admitting Provider Student in an Organized Health Care Education/Training Program; Emergency Provider Emergency Medicine; PCP Internal Medicine; Visit Provider Surgery | DX: R14.0 Abdominal distension (gaseous) (principal) | CPT/HCPCS: 99222 ==

== ENCOUNTER → 2025-03-21 04:50 | Outpatient (BNV) | payer OTHER, SELFPAY | PROVIDERS: Admitting Provider Student in an Organized Health Care Education/Training Program; Emergency Provider Emergency Medicine; PCP Internal Medicine; Visit Provider Internal Medicine | DX: A41.9 Sepsis, unspecified organism (principal); R65.20 Severe sepsis without septic shock; N17.9 Acute kidney failure, unspecified | CPT/HCPCS: 99222 ==

== ENCOUNTER → 2025-03-21 04:50 | Outpatient (BNV) | payer OTHER, SELFPAY | PROVIDERS: Admitting Provider Student in an Organized Health Care Education/Training Program; Emergency Provider Emergency Medicine; PCP Internal Medicine; Visit Provider Physician Assistant | DX: A41.9 Sepsis, unspecified organism (principal); R65.20 Severe sepsis without septic shock; N39.0 Urinary tract infection, site not specified; N99.528 Other complication of incontinent external stoma of urinary tract; N17.9 Acute kidney failure, unspecified; E87.20 Acidosis, unspecified; E87.21 Acute metabolic acidosis; E87.1 Hypo-osmolality and hyponatremia | CPT/HCPCS: 99223 ==

== ENCOUNTER → 2025-03-21 04:50 | Outpatient (BNV) | payer OTHER, SELFPAY | PROVIDERS: Admitting Provider Student in an Organized Health Care Education/Training Program; Emergency Provider Emergency Medicine; PCP Internal Medicine; Visit Provider Urology | DX: N12 Tubulo-interstitial nephritis, not specified as acute or chronic (principal) | CPT/HCPCS: 99024 ==

== ENCOUNTER 2025-04-04 14:47 | Outpatient (AMB) | payer OTHER, SELFPAY ==
--- OUTSIDE RECORDS SUMMARY | 2024-05-02 11:30 | XMS_ITS ---
Author Organization Darrian Ziegler III, MD Address [address] [place] [address] Care Team Providers Care Multiplex Operator Name Role Phone Tony PINK, [facility] Primary Care Provider Darrian Smith [phone] Allergies Allergen (clinical drug ingredient) Drug/Non Drug [...] Provider Diagnosis Darrian Ziegler III, MD [address] [place] [address] [place], [place]EN [address] 05/02/2024 Darrian Ziegler HTN (hypertension) I 10 [...] the liver has been done by his admission liaison, Dr. Burnett. It showed thickening of the [...] OV Provider Name:Darrian Ziegler, 05/04/2025 10:30:00 AM, [address] [place] [address] DR [facility] [place] [place], [address], Progress Notes * Candelario AGOSTOchandu KDOB: (74 yo M)Acc No.[id number]:05/02/2024 Progress Notes Patient: Zehra GALICIA Provider: Yahaira Ziegler MD :1950 A ge:74 Y S ex:Male Date:05/02/2024 Address:[address] [place], [place] [phone] Pcp:Hilary Jimenez MD Subjective: * Chief Complaints: [...] born in [place] and now lives in [place], [place]. He is and has several children. [...] Temp:97.2, Wt-k.06. * P ast Orders: Lab:[facility] [place]. Cate l Fast * Collection Date 04/15/2024 [...] the liver has been done by his admission liaison, Dr. Burnett. It showed thickening of the [...] 05/02/2024 Generated for Printi ng/Fabonig/eTransmitting on: 0 04/04/2025 03:38 PM EDT History and Physical Notes * HPI (History of Present Illness) Category Sub-Category Detail Notes COVID-19 Screening Questions Have you had any new onset fever, chills, cough, congestion, sore throat, shortness of breath, muscle aches?: No Have you been exposed to the virus withi n the last 10 days?: No Have you travelled internationally in [facility] last 10 days?: No Have you been [...]
--- OUTSIDE RECORDS SUMMARY | 2024-12-27 13:00 | XMS_ITS ---
Author Organization Darrian Ziegler III, MD Address [address] [place] [address] Care Team Providers Care Financial Reporting Specialist Name Role Phone Tony PINK, Hilary Primary Care Provider Darrian Smith [phone] REASON FOR VISIT Followup Encounters Encounter Location Date Provider Diagnosis Darrian Ziegler III, MD [address] [place] [address] [place] [address] 12/27/2024 Darrian Ziegler Plan Of Treatment Next Appt Details Provider Name:Darrian Ziegler, 05/04/2025 10:30:00 AM, [address] [place] [address] [place], [address], Progress Notes * Zehra AGOSTO KDOB: (75 yo M)Acc No.[id number]:12/27/2024 Progress Notes Patient: Zehra GALICIA Provider: Yahaira Ziegler MD :1950 A ge:74 Y S ex:Male Date:12/27/2024 Phone: Address:[address] [place] [address] Pcp:Hilary Jimenez MD Subjective: * Chief Complaints: [...] 12/27/2024 Generated for Ana cabrera/Linden/Reneeitting on: 0 04/04/2025 03:38 PM EDT
--- OUTSIDE RECORDS SUMMARY | 2025-01-31 06:15 | XMS_ITS ---
Author Organization Darrian Ziegler III, MD Address [address] [place] [address] Care Team Providers Care Nuclear Fuels Reclamation Engineer Name Role Phone Tony PINK, [facility] Primary Care Provider Darrian Smith [phone] Allergies Allergen (clinical drug ingredient) Drug/Non Drug [...] Date Provider Diagnosis Darrian Ziegler III, MD [address] [place] [address] [place] [address] 01/31/2025 Darrian Ziegler Urothelial carcinoma C68.9 ; [...] the liver has been done by his acute care clinical nurse specialist, Dr. Burnett. It showed thickening of the [...] Provider Name:Darrian Ziegler, 05/04/2025 10:30:00 AM, [address] [place] [address], [address], Progress Notes * JOSEPH Zehra KDOB: (74 yo M)Acc No.[id number]:01/31/2025 Progress Notes Patient: Zehra GALICIA Provider: Yahaira Ziegler MD :1950 A ge:74 Y S ex:Male Date:01/31/2025 Phone: Address:[address] [place] [phone] Pcp:Hilary Jimenez MD Subjective: * Chief Complaints: [...] ggressive non-smoker Quentin olivares was born in [facility] and now lives in [place], [place]. He is and has several children. [...] the liver has been done by his acute care clinical nurse specialist, Dr. Burnett. It showed thickening of the [...] true * Provider: Yahaira Ziegler MD Date: 01/31/2025 Generated for Ana cabrera/Linden/Tiannasmitting on: 04/04/2025 03:39 PM EDT History and Physical Notes * [...]
--- OUTSIDE RECORDS SUMMARY | 2025-03-07 07:00 | XMS_ITS ---
Author Organization [facility] Address [address] [place] [address] Care Team Providers Care Steam Plant Operator Name Role Phone Hilary Jimenez Primary Care Provider Unavailab Joe Hardy Jr [phone] REASON FOR VISIT abn findings in stool Encounters Encounter Location Date Provider Diagnosis [facility] Outpatient [address] [place] [phone] 03/07/2025 Joe Burnett Jr Plan Of Treatment Next Appt Details Provider Name:Joe estrada Jr, 05/05/2025 09:00:00 AM, [address] [place] [address], [phone], Progress Notes * Zehra AGOSTO KDOB: (75 yo M)Acc No.[id number]:03/07/2025 EGD and COL/MAC Patient: Vance SHANELLEGayZehra Provider: Symone Burnett MD :1950 A ge:74 Y S ex:Male Date:03/07/2025 Address:[address] [place] [phone] Pcp:Hilary Jimenez Subjective: * Chief Complaints: * [...] 03/07/2025 Generated for Ana cabrera/Linden/Nigel on: 0 04/04/2025 03:38 PM EDT
--- OUTSIDE RECORDS SUMMARY | 2025-04-04 15:38 | XMS_ITS | Patient Health Record ---
Author Organization [facility] Address [address] [place] [address] Care Team Providers Care Copy Manager Name Role Phone Hilary Boss Primary Care Provider Unavailab Joe Hardy Jr Unavailable Allergies Allergen (clinical drug ingredient) Drug/Non [...] Provider Speciality Internal M edicine Referred Organization [facility] Referred Provider Joe Echavarria Jr Referred Address [address] [facility],[place], [place],[address], Referred Provider Specialty Gastroentero logy General Notes Brooklyn Barkley 2024 10:14:44 AM > REQUESTED HERACLIO REFEFFAL FROM DR BOSS'S OFFICE FOR VISIT WITH DR ECHAVARRIA ON 02-15-25, Brooklyn Barkley 02/15/2025 11:39:50 AM >no referral required since patient is in the same [place] of care Referral Priority Routine Medications Medication [...] Risk Notes Problem Oesophageal varices without bleeding (36445152) Secondary esophageal varices without bleeding (I85.10) Active confirmed Problem Portal hypertension (09165787) Portal hypertension (K76.6) Active confirmed Problem 599639269 Liver mass (R16.0) Active confirmed Problem 255066769 Liver lesion (K76.9) Active confirmed Problem 79415897733313266 Abnormal CT scan, liver (R93.2) Active confirmed Problem 83869449 Cirrhosis of liver without ascites, unspecified hepatic cirrhosis type (K74.60) Active confirmed Vital Signs Temperature 97.7 degrees Fahrenheit 02/15/2025 Blood pressure diastolic 01 mm Hg 02/15/2025 Height 62 in 02/15/2025 Blood pressure systolic 001 mm Hg 02/15/2025 Weight 120 lbs 02/15/2025 BMI 21.95 kg/m2 02/15/2025 Encounters Encounter Location Date Provider Diagnosis [facility] [address] [place] [address] 05/12/2024 Joe Echavarria Jr Liver lesion K76.9 and Cirrhosis of liver without ascites, unspecified hepatic cirrhosis type K74.60 [facility] [address] [place] [address] 02/15/2025 Joe Echavarria Jr Abnormal findings in stool R19.5 [facility] [address] [place] [address] 04/27/2024 Joe Echavarria Jr Liver mass R16.0 [facility] [address] [place] [address] 12/26/2024 Joe Echavarria Jr [facility] [address] [place], [place] [address] [address] 02/28/2025 Joe Echavarria Jr [facility] [address] [place] [address] 02/28/2025 Joe Echavarria Jr [facility] [address] [place], [place] [address] 03/30/2025 Joe Echavarria Jr Assessments Encounter Date Diagnosis (ICD Code) Assessment Notes Treatment Notes Treatment Clinical Notes Section Notes 05/12/2024 Liver lesion (ICD-10 - K76.9) Liver disease - resources material was printed. Please obtain the laboratory testing and MRI imaging we discussed today while you are in [facility]. We discussed hepatic cirrhosis today. We [...] Order Date BUN 01/28/2024 BUN 12/17/2023 CREATININE 12/17/2023 CREATININE 01/28/2024 LIVER PROFILE 12/17/2023 LIVER PROFILE 03/17/2022 LIVER [...] Next Appt Details Provider Name:Joe estrada , 05/05/2025 09:00:00 AM, [address] [place] [address] , [place], [place], [phone], Insurance Providers Payer Name Payer Address Payer Phone Subscriber Number Group Number Insured Name Patient Relationship to Insured Coverage Start Date Coverage End Date [facility] [address] [place] [phone] [id number] Alexia Agosto Self - patient is the insured MEDICAID [facility] [address] [place] [phone] [id number] Alexia Agosto Self - patient is the insured Medical (General) History Medical History History ICD Code diabetes asthma Hypertension Bladder cancer Cirrhosis, likely secondary to fatty lonnie er, compensated Surgical History Surgery Date(Month/Year) bladder cancer Radical cystectomy, ileal conduit Hospitalization History Reason Date(Month/Year)
--- OUTSIDE RECORDS SUMMARY | 2025-04-04 15:39 | XMS_ITS | Patient Health Record ---
Author Organization Darrian Ziegler III, MD Address [address] [place] [address] [place] [address] Care Team Providers Care Engineering Agent Name Role Phone Tony PINK, [facility] Primary Care Provider Darrian Smith Unavailable [phone] Allergies Allergen (clinical drug ingredient) Drug/Non Drug Allergy documented on EMR Reaction Allergy Type Onset Date Status aspirin Aspirin Unknown Drug Allergy Active Motrin Unknown Drug Allergy Active Results Component Value Reference Range Notes Comprehensive Douglas. Panel Fa st Reviewed date:05/05/2024 04:29:55 PM Interpretation: Performing Lab:[facility], [address] [place] [phone] Notes/Report: Sodium 138 135-145 mmol/L Potassium 4.8 3.3-5.1 mmol/L Chloride 112 96-108 mmol/L Carbon Dioxide 21 22-29 mmol/L Anion Gap 10 12-20 Blood Urea Nitrogen 23 9-16 mg/dL Creatinine 1.22 0.5-1.4 mg/dL Estimated Glomerular Filt Rate 58 NOTE: For -Finnish individuals, multiply the result by 1.210. Chronic Kidney Disease: Estimated GFR < 60 mL/min/1.73m2 Severe Kidney Disease: Estimated GFR < 15 mL/min/1.73m2 Glucose Fasting 94 60-99 mg/dL Calcium 9.3 8.4-10.2 mg/dL Bilirubin Total 0.5 0.0-1.0 mg/dL Aspartate Amino Transferase 43 5-37 U/L Alanine Aminotransferase 36 0-40 U/L Total Protein 7.1 6.5-8.0 g/dL Albumin Level 3.7 3.5-5.0 g/dL Alkaline Phosphatase 196 39-117 U/L Lipid Panel Reviewed date:05/05/2024 04:29:55 PM Interpretation: Performing Lab:[facility], [address] [place] [phone] Notes/Report: Triglycerides 81 <150 mg/dL Desirable Triglyceride: less than 150 mg/dL Borderline High Triglyceride 150-199 mg/dL High Triglyceride: 200-499 mg/dL Very High Triglyceride: greater than or equal to 5OO mg/dL Cholesterol 150 <200 mg/dL Desirable Cholesterol: less than 200 mg/dL Borderline High Cholesterol: 200-239 mg/dL High Cholesterol: greater than 239 mg/dL LDL Cholesterol Calculated 80 <100 mg/dL Desirable LDL: less than 100 mg/dL Near Optimal/Above Optimal LDL: 110-129 mg/dL Borderline High LDL: 130-159 mg/dL High LDL: 160-189 mg/dL Very High LDL: greater than or equal to 190 mg/dL HDL Cholesterol 54 >40 mg/dL Desirable HDL: greater than 40 mg/dL Note: This HDL assay may give artificially low results in patients with liver disease. Hemoglobin A1c Reviewed date:05/05/2024 04:29:55 PM Interpretation: Performing Lab:[facility], [address] [place] [phone] Notes/Report: Hemoglobin A1c % 5.5 <6.0 % Hemoglobin A1C Reference Range Adults: 4.8 - 6.0 % Non diabetic: < 6.0 % Goal: < 7.0 % Additional Action Suggested: > 8.0 % Note: Hemoglobin A1c results are invalid for patients with abnormal amounts of HbF. Blood transfusions may impact the HbA1c concentration in the patient sample. Estimated Average Glucose 111 eAG = Estimated average glucose which is %A1C expressed as average glucose, using the formula of the O1G-Revprcm Average Glucose study (ADAG), Diabetes Care, Vol.31,#8, 2007 Creatinine GFR POC Reviewed date:06/13/2024 05:47:07 AM Interpretation: Performing Lab:[facility], [address] [place] [phone] Notes/Report: [phone] 0.78 >60 0915 HO.POHJ Creatinine POC 0.8 0.5-1.4 mg/dL GFR POC > 60 Chronic Kidney Disease: Estimated GFR < 60 mL/min/1.73m2 Severe Kidney Disease: Estimated GFR < 15 mL/min/1.73m2 CT urogram Reviewed date:08/01/2024 02:53:04 PM Interpretation: Performing Lab: Notes/Report: [address] [address] [address] Scan Report Signed Patient: Alec Agosto MR#: [id number] : 1950 Acct:[id number] Age/Sex: 74 / M ADM Date: 05/16/24 Loc: HO.CT Attending Dr: Mauro Narayan MD Ordering Physician: Mauro Narayan MD Date of Service: 05/16/24 Procedure(s): CT urogram Accession Number(s): [id number] cc: Mauro Narayan MD; Darrian Ziegler MD EXAMINATION: CT ABDOMEN AND PELVIS WITHOUT AND WITH CONTRAST CLINICAL INFORMATION: Neoplasm of bladder, unspecified. COMPARISON: CT urogram dated 05/12/2033 and 11/26/2021 and 04/08/2021. TECHNIQUE: Noncontrast CT of the abdomen and pelvis is performed followed by split bolus contrast-enhanced images using 85 mL Omnipaque 350 contrast. Postcontrast imaging is performed during the combined nephrogram and excretion phase. Sagittal and coronal reformatted images were obtained on the technologist's workstation for both the precontrast and postcontrast phases. This CT examination was performed using dose optimization techniques as appropriate, variously including the following: *Automated exposure control *Adjustment of mA and/or kV according to patient size (this includes techniques or standardized protocols for targeted exams where dose is matched to indication/reason for exam; i.e. extremities or head) *Use of iterative reconstruction technique DLP: 527 mGy-cm FINDINGS: LUNG BASES: Again seen is prominent tubular bronchiectasis in the anterior and lateral basal segments of the left lower lobe with prominent surrounding wall thickening and a progressive irregular linear area of atelectasis or scarring seen, extending to the posterior lateral pleural surface. No pleural effusion. LIVER, GALLBLADDER, AND BILIARY TREE: The liver is incompletely included. There is, however, relative atrophy of the right lobe and marked hypertrophy of the caudate lobe and lateral segment of the left lobe. Prominent nodular surface contour of the liver is seen and small perigastric and perisplenic varices are noted. No significant ascites is seen. Findings are consistent with liver cirrhosis and portal venous hypertension.. No focal hepatic lesion or biliary ductal dilatation is present. The gallbladder is unremarkable with no evidence of radiopaque gallstones, gallbladder wall thickening, or obvious pericholecystic inflammatory changes. PANCREAS: Truncated appearance of the distal pancreatic body/tail again noted. Pancreas otherwise unremarkable.. SPLEEN: Normal size and appearance. Small accessory splenule seen along the anterior margin of the spleen.. ADRENAL GLANDS: Unremarkable. KIDNEYS AND URETERS: The right kidney is asymmetrically atrophic compared to the contralateral side with progressive decrease in size of the right kidney seen, now measuring 7 cm longitudinally as compared to 8 cm (04/08/2021). There is moderate right hydronephrosis with dilatation of the right renal pelvis and proximal most right ureter. The dilated right renal calyces and renal pelvis are not well opacified with the excreted contrast, making evaluation for upper tract disease suboptimal. There is a tiny 0.2 cm right proximal ureteral filling defect (series 10, image 47), raising the suspicion of a possible urothelial neoplasm versus other eccentric debris/hemorrhage. The mid and distal right ureter are decompressed. No left-sided hydronephrosis is seen. The left ureter is decompressed. Both ureters can be followed down to the right lower quadrant diverting ileal conduit with no additional abnormal filling defect seen. The ileostomy appears unremarkable. No renal or ureteral calculi are noted. Mild nonspecific right perinephric fat stranding is noted.. BLADDER: Surgically absent. GASTROINTESTINAL TRACT: The patient is status post right lower quadrant ileal conduit diversion and urostomy. The small and large bowel are otherwise unremarkable. The appendix is not seen. ABDOMINAL WALL: Right lower quadrant urostomy with small parastomal herniation of fat and vessels seen , similar to the previous exam. LYMPH NODES: Normal. VASCULAR: Mild atherosclerotic calcification of the aortoiliac and femoral vessels are seen. PELVIC VISCERA: Surgically absent. OSSEUS STRUCTURES: Moderate vertebral spurring in the lower thoracic spine and mild vertebral spurring and lower lumbar spine. No suspicious bone findings. CT/CT urogram IMPRESSION: * Status post cystectomy with right lower quadrant ileal conduit diversion and urostomy. * Moderate right-sided hydronephrosis is seen with dilatation of the right renal pelvis and proximal most right ureter, similar to prior studies. The right renal calyces and renal pelvis are not well opacified with the excreted contrast, making evaluation for upper tract disease suboptimal. * The right kidney is asymmetrically atrophic compared to the contralateral side with progressive decrease in size of the right kidney compared to the prior exams. * No left-sided hydronephrosis. * Hepatic findings consistent with liver cirrhosis and portal venous hypertension. No focal hepatic lesion seen. * Chronic bronchiectasis in the left lower lobe with progressive linear area of atelectasis or scarring seen extending to the posterior lateral pleural surface. Electronically signed by: Jumana Stevens MD 06/22/2024 08:19 PM [facility] Dictated By: Jumana Stevens MD Signed By: <Electronically signed by Jumana Stevens MD in OV> 06/22/242018 DD/ 3 TD/TT: 05/16/24939 Child Protective Investigator: [place] [address] CT Scan Report Signed Patient: Alec Agosto MR#: [id number] : 1950 Acct:[id number] Age/Sex: 74 / M ADM Date: 05/16/24 Loc: .CT Attending Dr: Emilaina Blankenship MD Ordering Physician: Mauro Narayan MD Date of Service: 05/16/24 Procedure(s): CT urogram Accession Number(s): [id number] cc: Mauro Narayan MD; Darrian Ziegler MD EXAMINATION: CT ABDOMEN AND PELVI S WITHOUT AND WITH CONTRAST CLINICAL INFORMATION: Neoplasm of bladder, unspecified. COMPARISON: CT urogram dated 05/12/2033 and 11/26/2021 and 04/08/2021. TECHNIQUE: Noncontrast CT of th e abdomen and pelvis is performed followed by split bolus contrast-enhan yanira images using 85 mL Omnipaque 350 contrast. Postcontrast imaging is performed during the combined nephrogram and excretion phase. Sagittal and coronal reformatted images were obtained on the technologist' s workstation for both the precontrast and postcontrast phases. This CT examination was performed using dose optimization techniques as appropriate, various ly including the following: *Automated exposure control *Adjustment of mA an d/or kV according to patient size (this includes techniques or standardized protocols for targeted exams where dose is matched to indication/reason for exam; i.e. extremities or head) *Use of iterative reconstruction technique DLP: 527 mGy-cm FINDINGS: LUNG BASES: Again se en is prominent tubular bronchiectasis in the anterior and lateral basal segments of the left lower lobe with prominent surroundin g wall thickening and a progressive irregular linear area of atelectasis or scarring seen, extending to the posterior lateral pleural surf lynette. No pleural effusion. LIVER, GALLBLADDER, AND BILIARY TREE: The liver is incompletely included. There is, however, relative atrophy of the right lobe and marked hypertrophy o f the caudate lobe and lateral segment of the left lobe. Prominent nodu lar surface contour of the liver is seen and small perigastric and perisplenic varices are noted. No significant ascites is seen. Findings ar e consistent with liver cirrhosis and portal venous hypertension.. No fo yakov hepatic lesion or biliary ductal dilatation is present. The gallbla dder is unremarkable with no evidence of radiopaque gallstones, gallblad jyothi wall thickening, or obvious pericholecystic inflammatory changes. PANCREAS: Truncated appearance of the distal pancreatic body/tail again noted. Pancreas otherwise unremarkable.. SPLEEN: Normal size and appearance. Small accessory splenule seen along the anterior margin of the spleen.. ADRENAL GLANDS: Unremarkable. KIDNEYS AND URETERS: The right kidney is asymmetrically atrophic compared to the contralateral side with progressive decrease in size of the right kidney see n, now measuring 7 cm longitudinally as compared to 8 cm (04/08/2021). Th ere is moderate right hydronephrosis with dilatation of the ri ght renal pelvis and proximal most right ureter. The dilated right re nal calyces and renal pelvis are not well opacified with the excreted contrast, making evaluation for upper tract disease suboptimal. There is a tiny 0.2 cm right proximal ureteral filling defect (series 10, i mage 47), raising the suspicion of a possible urothelial neoplasm versus other eccentric debris/hemorrhage. The mid and distal right ure ter are decompressed. No left-sided hydronephrosis is seen. The left ureter is decompressed. Both ureters can be followed down to the right lower quadrant diverting ileal conduit with n o additional abnormal filling defect seen. The ileostomy appears unremarkable. No renal or ureteral calculi are noted. Mild nonspecific rig ht perinephric fat stranding is noted.. BLADDER: Surgically absent. GASTROINTESTINAL TRA CT: The patient is status post right lower quadrant ileal conduit divers ion and urostomy. The small and large bowel are otherwise unremarkab le. The appendix is not seen. ABDOMINAL WALL: Righ t lower quadrant urostomy with small parastomal herniation of fat an d vessels seen , similar to the previous exam. LYMPH NODES: Normal. VASCULAR: Mild atherosclerotic calcification of the aortoiliac and femoral vessels are seen. PELVIC VISCERA: Surgically absent. OSSEUS STRUCTURES: Moderate vertebral spurring in the lower thoracic spine and mild verte bral spurring and lower lumbar spine. No suspicious bone findings. C T/CT urogram IMPRESSION: * Status post cystec cass with right lower quadrant ileal conduit diversion and urostomy. * Moderate right-conchita ed hydronephrosis is seen with dilatation of the right renal pelvis a nd proximal most right ureter, similar to prior studies. The right r enal calyces and renal pelvis are not well opacified with the excreted contrast, making evaluation for upper tract disease suboptimal. * The right kidney i s asymmetrically atrophic compared to the contralateral side w ith progressive decrease in size of the right kidney compared to t he prior exams. * No left-sided hydronephrosis. * Hepatic findings consistent with liver cirrhosis and portal venous hypertension. No foc al hepatic lesion seen. * Chronic bronchiect asis in the left lower lobe with progressive linear area of atelectasis or scarring seen extending to the posterior lateral pleural surface. Electronically kinga d by: Jumana Stevens MD 06/22/2024 08:19 PM [facility] Dictated By: Jumana Stevens MD Signed By: <Electronically signed by Jumana Stevens MD in OV> 06/22/242018 DD/ 3 TD/TT: 05/16/24939 Child Protective Investigator: ROMAN Complete Blood Count Auto Di ff Reviewed date:01/27/2025 01:46:19 PM Interpretation: Performing Lab:[facility], [address] [place] [phone] Notes/Report: White Blood Count 7.4 4.8-10.8 X10*3/uL Red Blood Count 3.10 4.60-5.80 X10*6/uL Hemoglobin 10.1 14.0-18.0 g/dl Hematocrit 31.1 42.0-52.0 % Mean Corpuscular Volume 100.3 80.0-98.0 fL Mean Corpuscular Hemoglobin 32.6 27.0-33.0 pg Mean Corpuscular HGB Conc 32.5 31.0-36.0 g/dl Red Cell Distribution Width 15.9 11.0-16.0 % Platelet Count 144 160-400 X10*3/uL Mean Platelet Volume 10.9 9.4-12.4 fL Neutrophils Percent Auto 50.2 45-73 % Imm Gran Pct Auto 0.4 0.0-0.4 % Lymphocytes Percent Auto 20.0 20-40 % Monocytes Percent Auto 7.4 2-11 % Eosinophils Percent Auto 20.9 0-4 % Basophils Percent Auto 1.1 0-2 % NRBC Pct Auto 0.0 0.0-0.2 /100WBC Neutrophils Absolute Auto 3.7 2.0-8.3 x10*3/uL Imm Gran Abs Auto 0.03 0.00-0.03 X10*3/uL Lymphocytes Absolute Auto 1.5 1.2-4.9 X10*3/uL Monocytes Absolute Auto 0.6 0.1-1.2 X10*3/uL Eosinophils Absolute Auto 1.6 0.0-0.4 X10*3/uL Basophils Absolute Auto 0.1 0.0-0.2 X10*3/uL NRBC Abs Auto 0.000 0.0-0.012 X10*3/uL CO RRECTED REPORT Comprehensive Douglas. Panel Fa st Reviewed date:01/27/2025 01:46:19 PM Interpretation: Performing Lab:[facility], [address] [place] [phone] Notes/Report: Sodium 138 135-145 mmol/L Potassium 4.2 3.3-5.1 mmol/L Chloride 112 96-108 mmol/L Carbon Dioxide 21 22-29 mmol/L Anion Gap 9 12-20 Blood Urea Nitrogen 15 9-16 mg/dL Creatinine 1.09 0.5-1.4 mg/dL Estimated Glomerular Filt Rate > 60 Chronic Kidney Disease: Estimated GFR < 60 mL/min/1.73m2 Severe Kidney Disease: Estimated GFR < 15 mL/min/1.73m2 Glucose Fasting 110 60-99 mg/dL A fasting glucose from 100-125 mg/dl is considered impaired (pre-diabetes). Calcium 9.2 8.4-10.2 mg/dL Bilirubin Total 0.7 0.0-1.0 mg/dL Aspartate Amino Transferase 62 5-37 U/L Alanine Aminotransferase 35 0-40 U/L Total Protein 7.4 6.5-8.0 g/dL Albumin Level 3.7 3.5-5.0 g/dL Alkaline Phosphatase 262 39-117 U/L Lipid Panel Reviewed date:01/27/2025 01:46:19 PM Interpretation: Performing Lab:[facility], [address] [place] [phone] Notes/Report: Triglycerides 95 <150 mg/dL Desirable Triglyceride: less than 150 mg/dL Borderline High Triglyceride 150-199 mg/dL High Triglyceride: 200-499 mg/dL Very High Triglyceride: greater than or equal to 5OO mg/dL Cholesterol 148 <200 mg/dL Desirable Cholesterol: less than 200 mg/dL Borderline High Cholesterol: 200-239 mg/dL High Cholesterol: greater than 239 mg/dL LDL Cholesterol Calculated 80 <100 mg/dL Desirable LDL: less than 100 mg/dL Near Optimal/Above Optimal LDL: 110-129 mg/dL Borderline High LDL: 130-159 mg/dL High LDL: 160-189 mg/dL Very High LDL: greater than or equal to 190 mg/dL HDL Cholesterol 49 >40 mg/dL Desirable HDL: greater than 40 mg/dL Note: This HDL assay may give artificially low results in patients with liver disease. Prostate Specific Antigen Reviewed date:01/27/2025 01:46:19 PM Interpretation: Performing Lab:[address] [phone] Notes/Report: Prostate Specific Antigen < 0.10 <0.05-4.0 ng/mL PSA methodology: [employer] i Chemiluminescent Microparticle Immunoassay (CMIA) SLIDE REVIEW Reviewed date:01/27/2025 01:46:19 PM Interpretation: Performing Lab:[facility], [address] [place] [address] Notes/Report: SLIDE REVIEW VERIFIED Complete Blood Count Auto Di ff Reviewed date:01/27/2025 01:46:19 PM Interpretation: Performing Lab:[facility], [address] [place] [address] Notes/Report: White Blood Count 7.4 4.8-10.8 X10*3/uL Red Blood Count 3.10 4.60-5.80 X10*6/uL Hemoglobin 10.1 14.0-18.0 g/dl Hematocrit 31.1 42.0-52.0 % Mean Corpuscular Volume 100.3 80.0-98.0 fL Mean Corpuscular Hemoglobin 32.6 27.0-33.0 pg Mean Corpuscular HGB Conc 32.5 31.0-36.0 g/dl Red Cell Distribution Width 15.9 11.0-16.0 % Platelet Count 144 160-400 X10*3/uL Mean Platelet Volume 10.9 9.4-12.4 fL Neutrophils Percent Auto 50.2 45-73 % Imm Gran Pct Auto 0.4 0.0-0.4 % Lymphocytes Percent Auto 20.0 20-40 % Monocytes Percent Auto 7.4 2-11 % Eosinophils Percent Auto 20.9 0-4 % Basophils Percent Auto 1.1 0-2 % NRBC Pct Auto 0.0 0.0-0.2 /100WBC Neutrophils Absolute Auto 3.7 2.0-8.3 x10*3/uL Imm Gran Abs Auto 0.03 0.00-0.03 X10*3/uL Lymphocytes Absolute Auto 1.5 1.2-4.9 X10*3/uL Monocytes Absolute Auto 0.6 0.1-1.2 X10*3/uL Eosinophils Absolute Auto 1.6 0.0-0.4 X10*3/uL Basophils Absolute Auto 0.1 0.0-0.2 X10*3/uL NRBC Abs Auto 0.000 0.0-0.012 X10*3/uL CO RRECTED REPORT Reason For Referral No Information Medications Medication SIG (Take, Route, Frequency, Duration) Notes Start Date End Date Status Multivitamin Active Dulcolax 5 MG 1 tablet as needed Orally Once a day Active Symbicort 160-4.5 MCG/ACT as directed Inhalation Active Albuterol Sulfate HFA 108 (90 Base) MCG/ACT Inhalation Active B Complex Active Folic Acid 1 MG 1 tablet Orally Once a day 01/31/2025 Active metFORMIN HCl 500 MG 1 tablet with a dick l Orally Twice a day Active Januvia 50 MG 1 tablet Orally Once a day Active Atorvastatin Calcium 20 MG Oral Active Ciprofloxacin HCl 500 MG Oral Active Iron (Ferrous Sulfate) 325 (65 Fe) MG 1 tablet Orally Once a day Active Montelukast Sodium 10 MG 1 tablet Orally Once a day Active Immunizations Vaccine Route Administration Date Status Comme nts Tdap Unknown 05/02/2021 Administered PCV13 Unknown 03/28/2016 Administered PPV 23 Unknown 05/12/2017 Administered SHINGRIX Unknown 07/18/2021 Administered COVID- 19 Vaccine Unknown 03/26/2021 Administered COVID- 19 Vaccine Unknown 02/19/2021 Administered COVID- 19 Vaccine Unknown 12/11/2021 Administered COVID- 19 Vaccine Unknown 01/22/2021 Administered FLuzone HD PF Unknown 05/16/2022 Administered Social History Tobacco Use: Social History Observation Description Date Details (start date - stop date) Never Smoker NA - NA Tobacco Use/Smoking Question Answer Notes Patient is a nonsmoker Additional Findings: Tobacco Non-User Aggressive non-smoker Alcohol Screen Question Answer Notes Did you have a drink containing alcohol in the p ast year? No Points 0 Interpretation Negative Problems Problem Type SNOMED Code ICD Code Onset Dates Problem Status W/U Status Risk Notes Problem Asthma (479728190) Asthma (J45.909) Active confirmed He repo rts no difficulty with breathing since his last visit. He tolerated the hot weather of the summer without difficulty. Problem Anemia (070058924) Anemia (D64.9) Active confirmed The hemat ocrit this month is 31.9 with a mean cell volume of 100.9. This value will be observed. It is stable. Problem Diabetes mellitus (14172304) Diabetes mellitus (E11.9) Active confirmed His diabete s has been well controlled. No change in his medications was necessary today. Problem 362448679 Mixed hyperlipidemia (E78.2) Active confirmed Is currently stable and no change in his treatment is needed. Problem Hypertension (08295497) HTN (hypertension) (I10) Active confirmed His blood pressure is currently stable at 139/62 and no change in his regimen is needed today. Problem Hypothyroid (61764087) Hypothyroid (E03.9) Active confirmed He remains euthyroid. No change in his medication was needed. Problem 628052870 Urothelial carcinoma (C68.9) Active confirmed There is no sign of recurrent disease at this time. The ileostomy is functioning well. Problem [id number] Benign prostatic hyperplasia with lower urinary tract symptoms (N40.1) Active confirmed He rises from sleep once or twice a night to urinate depending upon fluid intake. We reviewed lifestyle modification she could make to reduce nocturia. Problem High cholesterol (97395582) High cholesterol (E78.00) Active confirmed Problem 808688761 Ileostomy in place (Z93.2) Active confirmed The urine in the bag appeared to be completely normal. He has had no bleeding. The ostomy is functioning well. Problem 94988505 Cirrhosis of liver without ascites, unspecified hepatic cirrhosis type (K74.60) Active confirmed On the MRI of the liver has been done by his gastroenterolog ist, Dr. Burnett. It showed thickening of the renal pelvis which will be referred to urology. It also showed 2 enhancing masses in the liver 1 being 1.1 cm equivocal for hepatocellular carcinoma. This will be followed. An alpha-fetoprote in will be obtained. Problem 471188496 History of tuberculosis (Z86.11) Active confirmed Vital Signs Heart Rate 70 /min 01/31/2025 Temperature 97.3 degrees Fahrenheit 01/31/2025 Blood pressure diastolic 62 mm Hg 01/31/2025 Height 61 in 01/31/2025 Blood pressure systolic 139 mm Hg 01/31/2025 Weight 130 lbs 01/31/2025 BMI 24.56 kg/m2 01/31/2025 Encounters Encounter Location Date Provider Diagnosis Darrian Ziegler III, MD [address] [place] [address] [place], [place] [phone] 05/02/2024 Darrian Ziegler HTN (hypertension) I 10 ; Anemia D64.9 ; Mixed hyperlipidemia E78.2 ; Benign prostatic hyperplasia with lower urinary tract symptoms N40.1 ; Diabetes mellitus E11.9 ; Urothelial carcinoma C68.9 and Cirrhosis of liver without ascites, unspecified hepatic cirrhosis type K74.60 Darrian Ziegler III, MD [address] [place] [address] [place] [address] 01/31/2025 Darrian Ziegler Urothelial carcinoma C68.9 ; Cirrhosis of liver without ascites, unspecified hepatic cirrhosis type K74.60 ; HTN (hypertension) I10 ; Hypothyroid E03.9 ; Anemia, unspecified type D64.9 ; Benign prostatic hyperplasia with lower urinary tract symptoms N40.1 ; Ileostomy in place Z93.2 and Diabetes mellitus E11.9 Assessments Encounter Date Diagnosis (ICD Code) Assessment Notes Treat ment Notes Treatment Clinical Notes 05/02/2024 Anemia (ICD-10 - D64.9) The hematocrit this month is 31.9 with a mean cell volume of 100.9. This value will be observed. It is stable. 05/02/2024 HTN (hypertension) (ICD-10 - I10) His blood pressure is currently stable at 136/69 and no change in his regimen is needed today. 01/31/2025 Urothelial carcinoma (ICD-10 - C68.9) There is no sign of recurrent disease at this time. The ileostomy is functioning well. 01/31/2025 Cirrhosis of liver without ascites, unspecified hepatic cirrhosis type (ICD-10 - K74.60) On the MRI of the liver has been done by his maitre d', Dr. Burnett. It showed thickening of the renal pelvis which will be referred to urology. It also showed 2 enhancing masses in the liver 1 being 1.1 cm equivocal for hepatocellular carcinoma. This will be followed. An alpha-fetoprotein will be obtained. 05/02/2024 Mixed hyperlipidemia (ICD-10 - E78.2) Is currently stable and no change in his treatment is needed. 01/31/2025 HTN (hypertension) (ICD-10 - I10) His blood pressure is currently stable at 139/62 and no change in his regimen is needed today. 05/02/2024 Benign prostatic hyperplasia with lower urinary tract symptoms (ICD-10 - N40.1) He has been rising from sleep once or twice a night to urinate. No change in his regimen as needed. 01/31/2025 Hypothyroid (ICD-10 - E03.9) He remains euthyroid. No change in his medication was needed. 05/02/2024 Diabetes mellitus (ICD-10 - E11.9) His diabetes has been well controlled. No change in his medications was necessary today. 01/31/2025 Anemia, unspecified type (ICD-10 - D64.9) He has a mild anemia which is likely from hypersplenism and chronic disease. He has had no bleeding. It is stable. 05/02/2024 Urothelial carcinoma (ICD-10 - C68.9) There is no sign of recurrent disease at this time. The ileostomy is functioning well. 01/31/2025 Benign prostatic hyperplasia with lower urinary tract symptoms (ICD-10 - N40.1) He rises from sleep once or twice a night to urinate depending upon fluid intake. We reviewed lifestyle modification she could make to reduce nocturia. 05/02/2024 Cirrhosis of liver without ascites, unspecified hepatic cirrhosis type (ICD-10 - K74.60) On the MRI of the liver has been done by his maitre d', Dr. Burnett. It showed thickening of the renal pelvis which will be referred to urology. It also showed 2 enhancing masses in the liver 1 being 1.1 cm equivocal for hepatocellular carcinoma. This will be followed. An alpha-fetoprotein will be obtained. 01/31/[address] (ICD-10 - Z93.2) The urine in the bag appeared to be completely normal. He has had no bleeding. The ostomy is functioning well. 01/31/2025 Diabetes mellitus (ICD-10 - E11.9) His diabetes has been well controlled. No change in his medications was necessary today. Plan Of Treatment Pending Test Test Name Order Date PROFILE, FASTING (COMPREHENSIVE METABOLI C) 05/02/2024 PROFILE, FASTING (COMPREHENSIVE METABOLI C) 05/19/2023 PROFILE, FASTING (COMPREHENSIVE METABOLI C) 12/29/2023 PROFILE, FASTING (COMPREHENSIVE METABOLI C) 01/31/2025 PROFILE, RANDOM (COMPREHENSIVE METABOLIC ) 10/15/2021 PROFILE, RANDOM (COMPREHENSIVE METABOLIC ) 05/13/2022 PROFILE, RANDOM (COMPREHENSIVE METABOLIC ) 11/12/2021 PROFILE, RANDOM (COMPREHENSIVE METABOLIC ) 01/12/2023 HEMOGLOBIN A1C (GLYCOHEMOGLOBIN) 023 LIPID PANEL 05/19/2023 LDH 10/15/2021 FERRITIN 11/12/2021 FERRITIN 10/15/2021 FOLATE 11/12/2021 FOLATE 01/12/2023 PSA, TOTAL 01/31/2025 PSA, TOTAL 05/02/2024 PSA, TOTAL 05/19/2023 CBC w DIFF 11/12/2021 CBC w DIFF 05/19/2023 CBC w DIFF 01/12/2023 CBC w DIFF 01/31/2025 CBC w DIFF 05/13/2022 CBC w DIFF 10/15/2021 SED RATE (ESR) 10/15/2021 RETICULOCYTE COUNT,CORRECTED 11/12/2021 RETICULOCYTE COUNT,CORRECTED 10/15/2021 ALPHA-FETOPROTEIN,TUMOR MARKER CBC WITH AUTO DIFF 05/02/2024 CBC WITH AUTO DIFF 12/29/2023 Ferritin 01/31/2025 Lipid Panel 05/02/2024 Lipid Panel 12/29/2023 Lipid Panel 01/31/2025 Folate 01/31/2025 Microalbumin, Random 05/19/2023 Hemoglobin A1c 12/29/2023 Next Appt Details Provider Name:Darrian Ziegler, 05/04/2025 10:30:00 AM, [address] [place] [address] , [place] [address], [place], [address], Insurance Providers Payer Name Payer Address Payer Phone Subscriber Number Group Number Insured Name Patient Relationship to Insured Coverage Start Date Coverage End Date [facility] [address] [place] [address] [id number] Alexia Agosto Self - patient is the insured MEDICAID [facility] [address] [place], [place] [id number] Alexia Agosto Self - patient is the insured MEDICARE NGS [address] [place] [address] [id number] Alexia Agosto Self - patient is the insured Medical (General) History Medical History History ICD Code HTN (hypertension) I10 Asthma J45.909 Diabetes mellitus E11.9 Hypothyroid E03.9 Normochromic normocytic anemia Resected urothelial carcinoma of the dianne dder Ileostomy History of antibiotic treatment for tube rculosis Benign prostatic hypertrophy Cirrhosis of the liver Hyperlipidemia Recurrent pyelonephritis Surgical History Surgery Date(Month/Year) Herniorrhaphy 02/2020 Cataract surgery, right eye 2019 Cataract surgery, left eye 2016 Radical cysectomy Appendectomy, ileal co nduit 02/2020 Hospitalization History Reason Date(Month/Year) Bladder CA 02/2020
--- NOTE | 2025-04-04 15:42 | MHC.OFFVIS ---
Intake Visit Reasons: cath removal from stoma Allergies aspirin Allergy (Verified 04/28/25 15:00) Unknown Beta-Blockers (Beta-Adrenergic Bloc Adverse Reaction (Verified 04/28/25 15:00) Unknown ibuprofen Adverse Reaction (Verified 04/28/25 15:00) Unknown HPI Comments Details: Allen is a very pleasant male. He is a patient of Dr Jimenez. He is seen for the following urologic conditions - invasive bladder cancer - recurring UTI Follow-up from hospital Had repair for hematuria Now with urine leaking around stoma Upon examination has had loss of stoma wall between skin and subcutaneous tissue Likely happen due to devascularization Will need a formal revision Highly likely that we should be able to easily pull more bowel through the body wall Creatinine 1.2 On methenamine with vitamin-C to minimize urinary colonization Here for surveillance imaging HbA1c 8.4 down to 6.1 Imaging with right mild hydro Low folate consistent with ileal diversion and is on supplementation Ileostomy management - Wafer - Securi-T [facility] [id number] - Bag 45mm [id number] - Sponges 4x4 [facility] [phone] - Stoma Paste - Povidine Solution IP 10% Invasive bladder cancer T4N1M0 cysto-prostatectomy with adjuvant chemotherapy May 2020 Had been diagnosed with BPH. Went for treatment in [facility]. Prostate resection was performed. Pathology showed invasive high-grade bladder cancer. Subsequently he underwent cysto-prostatectomy May 2020. Pathology T4N2M0 Adjuvant chemotherapy completed Follow-up staging imaging with PET CT negative October 2020 Well-maintained stoma Occasional UTI Imaging - 03/30 CT moderate right hydronephrosis but no timoteo recurrence - 10/01 CT from [facility] with mild right hydronephrosis, question of prior pyelonephritis on left kidney - 11/29 CT scan mild right hydronephrosis, no timoteo recurrence, liver scarring - 12/30 CT scan continue mild right hydronephrosis, no timoteo recurrence, liver scarring consistent with cirrhosis - 05/02 CT scan continue mild right hydronephrosis, some scarring on right kidney, no timoteo recurrence, liver scarring consistent with cirrhosis Laboratories - 03/30 Cr 1.03, 11/29 1.5, 12/31 1.2 Plan for repeat imaging every 6 months for 5 years [facility] Medical History (Updated 05/04/25 @ 10:17 by Pricilla León NP) Aortic stenosis Complication of urostomy History of bladder cancer Abdominal distention Cirrhosis of liver HTN (hypertension) Acute hyponatremia Hydronephrosis Bladder cancer Asthma Diabetes Bladder cancer Incomplete emptying of bladder due to benign prostatic hyperplasia Complicated urinary tract infection Surgical History History of surgery History of ileal conduit Social History Household Members: Spouse Housing: House Are you a primary personal care assistant to a significant other at home: No Do you presently have visiting nurse or other home services: No Alcohol intake: never Comment: bedside Patient Tobacco Use Status: Never used Tobacco Advance Directives Date on File: 03/12/25 service: No Current occupational status: retired Review of Systems Const Denies chills and Denies fever(s) Card Reports no additional complaints and Denies syncope Resp Denies cough GI Denies abdominal pain and Denies heartburn Reports as per HPI and Denies change in libido Neuro Denies syncope Psych Denies change in libido Endo Denies change in libido Physical Exam Const General: cooperative, healthy appearing, comfortable and no acute distress Orientation/consciousness: patient oriented x3 HEENT Face and sinus: Yes normal facial exam Mouth: moist mucous membranes Neck Neck: Yes normal visual inspection, Yes full ROM and Yes trachea midline Chest Chest palpation & inspection: normal inspection of the chest Resp Effort & Inspection: normal respiratory effort, able to speak in complete sentences and no respiratory distress GI Inspection: Yes normal to inspection Back/Spine/Pelvis Cervical Spine: normal cervical lordosis Thoracic/Lumbar Spine: thoracic and lumbar spine normal to inspection Skin General skin exam: no rashes or lesions noted Neuro General: patient oriented x3, gait normal, tone normal and moves all extremities Extrem General: Yes normal to inspection and Yes capillary refill normal Assessment & Plan Assessment & Plan (1) Complication of urostomy: Code(s): N99.528 - Other complication of incontinent external stoma of urinary tract Category: Medical Plan Three-month follow-up Medications: New ostomy supplies-skin barrier Securi-T [facility] [id number] - change every 3 days 30 wafers 1RF Changed From urinary bag Securi-T 45mm urostomy bag [id number] 10 ea 4RF C67.9 - Malignant neoplasm of bladder, unspecified To urinary bag (Assura Urostomy Pouch) Securi-T 45mm urostomy bag . [id number] 10 ea 4RF C67.9 - Malignant neoplasm of bladder, unspecified From ostomy supplies Securi-T stoma paste 60 grams 5RF C67.9 - Malignant neoplasm of bladder, unspecified To ostomy supplies (MicroHesive Stoma Paste) Securi-T stoma paste. 60 grams 5RF C67.9 - Malignant neoplasm of bladder, unspecified Patient Instructions: This note is constructed using voice recognition software. While every effort has been made to ensure accuracy asphalt spreader errors may have been included. Imaging studies, laboratory and physical exam results were discussed and reviewed in detail. No major barriers to patient understanding were identified. An opportunity to ask questions regarding the treatment plan was provided. All questions were answered. The patient expressed understanding and agreement with the above treatment plan. The patient is aware they should contact our office by phone for worsening of their current condition or the appearance of new urologic symptoms. Compliance is encouraged with any medications and followup testing that is ordered. It is a privilege to participate in the urologic care of your patient. If you have any questions or concerns regarding treatment for the above conditions, or other urologic issues, please do not hesitate to contact me. The office telephone contact is [phone]. Sincerely, Dr Mauro Narayan MD, SW[facility] - Urology Compassionate Specialist Care for the Genitourinary System Coding Level of Care Code Est Pt Level 3 (36080) Diagnoses Complication of urostomy N99.528
== END 2025-04-04 16:08 | disposition home or self-care (01) ==
LOC: HO.HUSH 14:47
PROVIDERS: PCP Internal Medicine; Visit Provider Urology
DX: N99.528 Other complication of incontinent external stoma of urinary tract (principal)
CPT/HCPCS: 99024

== ENCOUNTER → 2025-04-04 14:47 | Outpatient (BNVA) | payer OTHER, SELFPAY | PROVIDERS: PCP Internal Medicine; Visit Provider Urology | DX: N99.528 Other complication of incontinent external stoma of urinary tract (principal) | CPT/HCPCS: 99212 ==

== ENCOUNTER 2025-04-14 09:18 | Outpatient (REF) | payer OTHER, SELFPAY ==
--- OUTSIDE RECORDS SUMMARY | 2023-12-29 10:30 | XMS_ITS ---
Author Organization Darrian Ziegler III, MD Address [address] [address] Care Team Providers Care Medical Record Administrator Name Role Phone Tony PINK, [facility] Primary Care Provider Darrian Smith [phone] Allergies Allergen (clinical drug ingredient) Drug/Non Drug [...] Date Provider Diagnosis Darrian Ziegler III, MD [address] [place] [address] [place] [address] 12/29/2023 Darrian Ziegler HTN (hypertension) I 10 [...] OV Provider Name:Darrian Ziegler, 05/04/2025 10:30:00 AM, [address] [place] [address], [address], Progress Notes * Zehra AGOSTO KDOB: (73 yo M)Acc No.[id number]:12/29/2023 Progress Notes Patient: Vance ayoub Zehra Sissy Provider: Yahaira Ziegler MD :1950 A ge:73 Y S ex:Male Date:12/29/2023 Address:[address] [place], [place] [phone] Pcp:Hilary Jimenez MD Subjective: * Chief Complaints: [...] medical issues. Her into the emergency room [facility] December 22, 2023 for a urinary [...] ggressive non-smoker Quentin olivares was born in [facility] and now lives in [place], [place]. He is and has several children. [...] 30 L >40 - mg/dL L ab:Comprehensive [place]. Panel Fast (Order Date - 12/18/2023) (Collection [...] Range?Hemoglobin A1c %6.2H<6.0 - % ?Estimated Average Qwofyat173- mg/dL ???Lab:Microalbumin, Random (Order Date - 12/18/2023) (Collection Date - 12/18/2023)?ValueReference Range?Creatinine Urine75.67- mg/dL ?Microalbumin Kcist474.0- mg/L?Microalbum Creatinine Ratio Ur199.5 H<30 - ug/mg [...] 12/29/2023 Generated for Ana cabrera/Linden/Reneeitting on: 0 04/14/2025 10:02 AM EDT History and Physical Notes * [...]
--- OUTSIDE RECORDS SUMMARY | 2024-05-02 11:30 | XMS_ITS ---
Author Organization Darrian Ziegler III, MD Address [address] [address] Care Team Providers Care Hardware Test Engineer Name Role Phone Tony PINK, [facility] Primary Care Provider Darrian Smith [phone] Allergies Allergen (clinical drug ingredient) Drug/Non Drug [...] Date Provider Diagnosis Darrian Ziegler III, MD [address] [place] [address] [place], [place] [address] 05/02/2024 Darrian Ziegler HTN (hypertension) I 10 [...] the liver has been done by his tanker driver, Dr. Burnett. It showed thickening of the [...] 7 Months, Reason: OV Provider Name:Darrian Ziegler, 05/04/2025 10:30:00 AM, [address] [place] [address] [address] [facility] [place], [address], Progress Notes * Candelario AGOSTOchandu KDOB: (74 yo M)Acc No.[id number]:05/02/2024 Progress Notes Patient: Zehra GALICIA Provider: Yahaira Ziegler MD :1950 A ge:74 Y S ex:Male Date:05/02/2024 Address:[address] [place], [place] [phone] Pcp:Hilary Jimenez MD Subjective: * Chief Complaints: [...] Appendectomy, ileal conduit 02/2020Cataract surgery, left eye 2016Cataract surgery, right eye 2019Herniorrhaphy 02/2020 * Hospitalization/Major [...] born in [place] and now lives in [place], [place]. He is and has several children. [...] Temp:97.2, Wt-k.06. * P ast Orders: Lab:Comprehensive [place]. Cate l Fast * Collection Date 04/15/2024 12/18/2023 [...] the liver has been done by his tanker driver, Dr. Burnett. It showed thickening of the [...] true * Provider: Yahaira Ziegler MD Date: 05/02/2024 Generated for Printi ng/Fabonig/eTransmitting on: 04/14/2025 10:01 AM EDT History and Physical Notes * HPI (History of Present Illness) Category Sub-Category Detail Notes COVID-19 Screening Questions Have you had any new onset fever, chills, cough, congestion, sore throat, shortness of breath, muscle aches?: No Have you been exposed to the virus withi n the last 10 days?: No Have you travelled internationally in [facility] last 10 days?: No Have you [...]
--- OUTSIDE RECORDS SUMMARY | 2024-12-26 05:20 | XMS_ITS ---
Author Organization [facility] Address 10 [facility] [address] [place] [address] Care Team Providers Care Title Insurance Agent Name Role Phone Hilary Jimenez Primary Care Provider Unavailab Joe Hardy Jr REASON FOR VISIT cirrhosis Encounters Encounter Location Date Provider Diagnosis [facility] [address] [facility] [address] [place] [address] 12/26/2024 Joe Burnett Jr Plan Of Treatment Next Appt Details Provider Name:Joe estrada Jr, 05/05/2025 08:10:00 AM, [address] [place] [address] , [place], [place], [phone], Progress Notes * AGOSTO Zehra KDOB: (75 yo M)Acc No.[id number]:12/26/2024 Progress Notes Patient: Candelario GALICIAchandu Sissy Provider: Symone Burnett MD :1950 A ge:74 Y S ex:Male Date:12/26/2024 Address:[address] [place] [address] Pcp:Hilary Jimenez Subjective: * Chief Complaints: * [...] 12/26/2024 Generated for Ana cabrera/Linden/Nigel on: 0 04/14/2025 10:02 AM EDT
--- OUTSIDE RECORDS SUMMARY | 2024-12-27 13:00 | XMS_ITS ---
Author Organization Darrian Ziegler III, MD Address [address] [place] [address] Care Team Providers Care Date Night Sitter Name Role Phone Tony PINK, Hilary Primary Care Provider Darrian Smith [phone] REASON FOR VISIT Followup Encounters Encounter Location Date Provider Diagnosis Darrian Ziegler III, MD [address] [place] [address] [place] [address] 12/27/2024 Darrian Ziegler Plan Of Treatment Next Appt Details Provider Name:Darrian Ziegler, 05/04/2025 10:30:00 AM, [address] [place] [address] [place], [address], Progress Notes * Zehra AGOSTO KDOB: (75 yo M)Acc No.[id number]:12/27/2024 Progress Notes Patient: Zehra GALICIA Provider: Yahaira Ziegler MD :1950 A ge:74 Y S ex:Male Date:12/27/2024 Phone: Address:[address] [place] [address] Pcp:Hilary Jimenez MD Subjective: * Chief Complaints: [...] MD Date: 0 12/27/2024 Generated for Ana cabrera/Linden/Reneeitting on: 0 04/14/2025 10:01 AM EDT
--- OUTSIDE RECORDS SUMMARY | 2025-01-31 06:15 | XMS_ITS ---
Author Organization Darrian Ziegler III, MD Address [address] [address] Care Team Providers Care Hopper Operator Name Role Phone Tony PINK, [facility] Primary Care Provider Darrian Smith [phone] Allergies Allergen (clinical drug ingredient) Drug/Non Drug [...] Date Provider Diagnosis Darrian Ziegler III, MD [address] [place] [address] [place] [address] 01/31/2025 Darrian Ziegler Urothelial carcinoma C68.9 ; [...] the liver has been done by his cabinet abrasive sandblaster, Dr. Burnett. It showed thickening of the [...] OV Provider Name:Darrian Ziegler, 05/04/2025 10:30:00 AM, [address] [place] [address], [address], Progress Notes * JOSEPH Zehra KDOB: (74 yo M)Acc No.[id number]:01/31/2025 Progress Notes Patient: Zehra GALICIA Provider: Yahaira Ziegler MD :1950 A ge:74 Y S ex:Male Date:01/31/2025 Phone: Address:[address] [place] [phone] Pcp:Hilary Jimenez MD Subjective: * Chief Complaints: [...] ggressive non-smoker Quentin olivares was born in [facility] and now lives in [place], [place]. He is and has several children. [...] the liver has been done by his cabinet abrasive sandblaster, Dr. Burnett. It showed thickening of the [...] off status: Completed true * Provider: Yahaira iZegler MD Date: 0 01/31/2025 Generated for Ana cabrera/Linden/Tiannasmitting on: 0 04/14/2025 10:02 AM EDT History [...]
--- OUTSIDE RECORDS SUMMARY | 2025-03-07 07:00 | XMS_ITS ---
Author Organization [facility] Address [address] [place] [address] Care Team Providers Care Bacon Skinner Name Role Phone Hilary Jimenez Primary Care Provider Unavailab Joe Hardy Jr [phone] REASON FOR VISIT abn findings in stool Encounters Encounter Location Date Provider Diagnosis [facility] Out[place] [address] [place] [id number] 03/07/2025 Joe Burnett Jr Plan Of Treatment Next Appt Details Provider Name:Joe estrada Jr, 05/05/2025 08:10:00 AM, [address] [place] [address], [phone], Progress Notes * Zehra AGOSTO KDOB: (75 yo M)Acc No.[id number]:03/07/2025 EGD and COL/MAC Patient: Vance SHANELLEGayZehra Provider: Symone Burnett MD :1950 A ge:74 Y S ex:Male Date:03/07/2025 Address:[address] [place] [phone] Pcp:Hilary Jimenez Subjective: * Chief Complaints: * [...] 0 03/07/2025 Generated for Ana cabrera/Linden/Nigel on: 0 04/14/2025 10:01 AM EDT
--- OUTSIDE RECORDS SUMMARY | 2025-04-04 07:10 | XMS_ITS ---
Author Organization [facility] [place] [facility] Address [address] [place] [address] Care Team Providers Care Skinner Pelts Name Role Phone Hilary Jimenez Primary Care Provider Unavailab Joe Hardy Jr [phone] REASON FOR VISIT abnormal ct scan Encounters Encounter Location Date Provider Diagnosis [facility] [place] [address] [place] [id number] 04/04/2025 Joe Burnett Jr Plan Of Treatment Next Appt Details Provider Name:Joe estrada Jr, 05/05/2025 08:10:00 AM, [address] [place] [address], [phone], Progress Notes * Zehra AGOSTO KDOB: (75 yo M)Acc No.[id number]:04/04/2025 EGD and COL/MAC Patient: Vance MCCLOUD Zehra Sheehan Provider: Symone Burnett MD :1950 A ge:75 Y S ex:Male Date:04/04/2025 Address:[address] [place] [phone] Pcp:Hilary Jimenez Subjective: * Chief Complaints: * [...] 0 04/04/2025 Generated for Ana cabrera/Linden/Nigel on: 0 04/14/2025 10:01 AM EDT
[2025-04-14 09:52] LABS: MANUAL DIFF FLAG NO
--- OUTSIDE RECORDS SUMMARY | 2025-04-14 10:01 | XMS_ITS | Patient Health Record ---
Author Organization [facility] Address [address] [place] [address] Care Team Providers Care Brim Pouncing Machine Operator Name Role Phone Hilary Boss Primary Care [...] Provider Speciality Internal M edicine Referred Organization [facility] Referred Provider Joe Echavarria Jr Referred Address [address],[place], [place],[address], Referred Provider Specialty Gastroentero logy General Notes Brooklyn Barkley 2024 10:14:44 AM > REQUESTED HERACLIO REFEFFAL FROM DR BOSS'S OFFICE FOR VISIT WITH DR ECHAVARRIA ON 02-15-25, Brooklyn Barkley 02/15/2025 11:39:50 AM >no referral required since patient is in the same [place] of [place] Referral Priority Routine Medications Medication [...] Risk Notes Problem Oesophageal varices without bleeding (35454130) Secondary esophageal varices without bleeding (I85.10) Active confirmed Problem Portal hypertension (70317517) Portal hypertension (K76.6) Active confirmed Problem 693721217 Liver mass (R16.0) Active confirmed Problem 385385159 Liver lesion (K76.9) Active confirmed Problem 35271407010746020 Abnormal CT scan, liver (R93.2) Active confirmed Problem 21583787 Cirrhosis of liver without ascites, unspecified hepatic cirrhosis type (K74.60) Active confirmed Vital Signs Temperature 97.7 degrees Fahrenheit 02/15/2025 Blood pressure diastolic 01 mm Hg 02/15/2025 Height 62 in 02/15/2025 Blood pressure systolic 001 mm Hg 02/15/2025 Weight 120 lbs 02/15/2025 BMI 21.95 kg/m2 02/15/2025 Encounters Encounter Location Date Provider Diagnosis [facility] [address] [place] [address] 05/12/2024 Joe Echavarria Jr Liver lesion K76.9 and Cirrhosis of liver without ascites, unspecified hepatic cirrhosis type K74.60 [facility] [address] [place] [address] 02/15/2025 Joe Ehcavarria Jr Abnormal findings in stool R19.5 [facility] [address] [place] [address] 04/27/2024 Joe Echavarria Jr Liver mass R16.0 [facility] [address] [place] [address] 12/26/2024 Joe Echavarria Jr [facility] [address] [place], [place] [address] [address] 02/28/2025 Joe Echavarria Jr [facility] [address] [place] [address] 02/28/2025 Joe Echavarria Jr [facility] [address] [place], [place] [address] 03/30/2025 Joe Echavarria Jr Assessments Encounter Date Diagnosis (ICD Code) Assessment Notes Treatment Notes Treatment Clinical Notes Section Notes 05/12/2024 Liver lesion (ICD-10 - K76.9) Liver disease - resources material was printed. Please obtain the laboratory testing and MRI imaging we discussed today while you are in [facility]. We discussed hepatic cirrhosis today. We discussed [...] Appt Details Provider Name:Joe estrada , 05/05/2025 08:10:00 AM, [address] , [place], [place], [id number], Insurance Providers Payer Name Payer Address Payer Phone Subscriber Number Group Number Insured Name Patient Relationship to Insured Coverage Start Date Coverage End Date [facility] [address] [place] [phone] [id number] Alexia Agosto Self - patient is the insured MEDICAID [facility] [address] [place] [id number] Alexia Agosto Self - patient is the insured Medical (General) History Medical History History ICD Code diabetes asthma Hypertension Bladder cancer Cirrhosis, likely secondary to fatty lonnie er, compensated Surgical History Surgery Date(Month/Year) bladder cancer Radical cystectomy, ileal conduit Hospitalization History Reason Date(Month/Year)
--- OUTSIDE RECORDS SUMMARY | 2025-04-14 10:02 | XMS_ITS | Patient Health Record ---
Author Organization Darrian Ziegler III, MD Address [address] [place] [address] [place] [address] Care Team Providers Care Genetic Technologist Name Role Phone Tony PINK, [facility] Primary Care Provider Darrian Smith Unavailable [phone] Allergies Allergen (clinical drug ingredient) Drug/Non Drug Allergy documented on EMR Reaction Allergy Type Onset Date Status aspirin Aspirin Unknown Drug Allergy Active Motrin Unknown Drug Allergy Active Results Component Value Reference Range Notes Comprehensive [place]. Panel Fa st Reviewed date:05/05/2024 04:29:55 PM Interpretation: Performing Lab:[facility], [address] [place] [address] Notes/Report: Sodium 138 135-145 mmol/L Potassium 4.8 3.3-5.1 mmol/L Chloride 112 96-108 mmol/L Carbon Dioxide 21 22-29 mmol/L Anion Gap 10 12-20 Blood Urea Nitrogen 23 9-16 mg/dL Creatinine 1.22 0.5-1.4 mg/dL Estimated Glomerular Filt Rate 58 NOTE: For -Brune[place] individuals, multiply the result by 1.210. Chronic [...] Panel Reviewed date:05/05/2024 04:29:55 PM Interpretation: Performing Lab:[facility], [address] [place] [address] Notes/Report: Triglycerides 81 <150 mg/dL Desirable Triglyceride: [...] A1c Reviewed date:05/05/2024 04:29:55 PM Interpretation: Performing Lab:[facility], [address] [place] [address] Notes/Report: Hemoglobin A1c % 5.5 <6.0 % [...] average glucose, using the formula of the [id number]-Ajmxfrc Average Glucose study (ADAG), Diabetes Care, Vol.31,#8, 2007 Creatinine GFR POC Reviewed date:06/13/2024 05:47:07 AM Interpretation: Performing Lab:[facility], [address] [place] [address] Notes/Report: [id number] 0.78 >60 0915 HO.POHJ Creatinine POC 0.8 0.5-1.4 mg/dL GFR POC > 60 Chronic Kidney Disease: Estimated GFR < 60 mL/min/1.73m2 Severe Kidney Disease: Estimated GFR < 15 mL/min/1.73m2 CT urogram Reviewed date:08/01/2024 02:53:04 PM Interpretation: Performing Lab: Notes/Report: [address] [address] [address] Scan Report Signed Patient: Alec Agosto MR#: [id number] : 1950 Acct:[id number] Age/Sex: 74 / M ADM Date: 05/16/24 Loc: HO.CT Attending Dr: Mauro Narayan MD Ordering Physician: Mauro Narayan MD Date of Service: 05/16/24 Procedure(s): CT urogram Accession Number(s): [id number] cc: Mauro Narayan MD; Darrian Ziegler MD [...] by: Jumana Stevens MD 06/22/2024 08:19 PM [facility] Dictated By: Jumana Steevns MD Signed By: <Electronically signed by Jumana Stevens MD in OV> 06/22/242018 DD/ 3 TD/TT: 05/16/24939 Brim Blocker: [place] [address] [address] Scan Report Signed Patient: Alec Agosto MR#: [id number] : 1950 Acct:[id number] Age/Sex: 74 / M ADM Date: 05/16/24 Loc: .CT Attending Dr: Emiliana Blankenship MD Ordering Physician: Mauro Narayan MD Date of Service: 05/16/24 Procedure(s): CT urogram Accession Number(s): [id number] cc: Mauro Narayan MD; Darrian Ziegler MD [...] by: Jumana Stevens MD 06/22/2024 08:19 PM [facility] Dictated By: Jumana Stevens MD Signed By: <Electronically signed by Jumana Stevens MD in OV> 06/22/242018 DD/ 3 TD/TT: 05/16/24939 Brim Blocker: ROMAN Complete Blood Count Auto Di ff Reviewed date:01/27/2025 01:46:19 PM Interpretation: Performing Lab:[facility], [address] [place] [address] Notes/Report: White Blood Count 7.4 4.8-10.8 X10*3/uL [...] 0.000 0.0-0.012 X10*3/uL CO RRECTED REPORT Comprehensive [place]. Panel Fa st Reviewed date:01/27/2025 01:46:19 PM Interpretation: Performing Lab:[facility], [address] [place] [address] Notes/Report: Sodium 138 135-145 mmol/L Potassium 4.2 [...] Panel Reviewed date:01/27/2025 01:46:19 PM Interpretation: Performing Lab:[facility], [address] [place] [address] Notes/Report: Triglycerides 95 <150 mg/dL Desirable Triglyceride: [...] Antigen Reviewed date:01/27/2025 01:46:19 PM Interpretation: Performing Lab:[address] [address] Notes/Report: Prostate Specific Antigen < 0.10 <0.05-4.0 ng/mL PSA methodology: Sun-eeenity i Chemiluminescent Microparticle Immunoassay (CMIA) SLIDE REVIEW Reviewed date:01/27/2025 01:46:19 PM Interpretation: Performing Lab:[facility], [address] [place] [address] Notes/Report: SLIDE REVIEW VERIFIED Complete Blood Count Auto Di ff Reviewed date:01/27/2025 01:46:19 PM Interpretation: Performing Lab:[facility], [address] [place] [address] Notes/Report: White Blood Count 7.4 4.8-10.8 X10*3/uL [...] Status W/U Status Risk Notes Problem Asthma (668093619) Asthma (J45.909) Active confirmed He repo rts no difficulty with breathing since his last visit. He tolerated the hot weather of the summer without difficulty. Problem Anemia (122003456) Anemia (D64.9) Active confirmed The hemat ocrit this month is 31.9 with a mean cell volume of 100.9. This value will be observed. It is stable. Problem Diabetes mellitus (77573074) Diabetes mellitus (E11.9) Active confirmed His diabete s has been well controlled. No change in his medications was necessary today. Problem 296311823 Mixed hyperlipidemia (E78.2) Active confirmed Is currently stable and no change in his treatment is needed. Problem Hypertension (41597654) HTN (hypertension) (I10) Active confirmed His blood pressure is currently stable at 139/62 and no change in his regimen is needed today. Problem Hypothyroid (92345014) Hypothyroid (E03.9) Active confirmed He remains euthyroid. No change in his medication was needed. Problem 079578275 Urothelial carcinoma (C68.9) Active confirmed There is no sign of recurrent disease at this time. The ileostomy is functioning well. Problem 2445886804137 Benign prostatic hyperplasia with lower urinary tract symptoms (N40.1) Active confirmed He rises from sleep once or twice a night to urinate depending upon fluid intake. We reviewed lifestyle modification she could make to reduce nocturia. Problem High cholesterol (88946088) High cholesterol (E78.00) Active confirmed Problem 647789697 Ileostomy in place (Z93.2) Active confirmed The urine in the bag appeared to be completely normal. He has had no bleeding. The ostomy is functioning well. Problem 55467045 Cirrhosis of liver without ascites, unspecified hepatic [...] An alpha-fetoprote in will be obtained. Problem 037017263 History of tuberculosis (Z86.11) Active confirmed Vital Signs Heart Rate 70 /min 01/31/2025 Temperature 97.3 degrees Fahrenheit 01/31/2025 Blood pressure diastolic 62 mm Hg 01/31/2025 Height 61 in 01/31/2025 Blood pressure systolic 139 mm Hg 01/31/2025 Weight 130 lbs 01/31/2025 BMI 24.56 kg/m2 01/31/2025 Encounters Encounter Location Date Provider Diagnosis Darrian Ziegler III, MD [address] [place] [address] [address] [place], [place] [address] 05/02/2024 Darrian Ziegler HTN (hypertension) I 10 ; Anemia D64.9 ; Mixed hyperlipidemia E78.2 ; Benign prostatic hyperplasia with lower urinary tract symptoms N40.1 ; Diabetes mellitus E11.9 ; Urothelial carcinoma C68.9 and Cirrhosis of liver without ascites, unspecified hepatic cirrhosis type K74.60 Darrian Ziegler III, MD [address] [place] [address] [place] [address] 01/31/2025 Darrian Ziegler Urothelial carcinoma C68.9 ; [...] the liver has been done by his candles pourer, Dr. Burnett. It showed thickening of the [...] the liver has been done by his candles pourer, Dr. Burnett. It showed thickening of the [...] Details Provider Name:Darrian Ziegler, 05/04/2025 10:30:00 AM, [address] [place] [address] , [place] [address], [place], [address], Insurance Providers Payer Name Payer Address Payer Phone Subscriber Number Group Number Insured Name Patient Relationship to Insured Coverage Start Date Coverage End Date [facility] [address] [place] [address] [id number] Alexia Agosto Self - patient is the insured MEDICAID [facility] [address] [place], [place] [id number] Alexia Agosto Self - patient is the insured MEDICARE [employer]GS [address] [place] [address] [id number] Alexia Agosto Self - patient is the [...]
[2025-04-14 10:31] LABS: Hematocrit 28.6 % (42.0-52.0); Hemoglobin 9.3 g/dl (14.0-18.0); Imm Gran Abs Auto 0.06 X10*3/uL (0.00-0.03); Imm Gran Pct Auto 1.0 % (0.0-0.4); Lymphocytes Absolute Auto 1.2 X10*3/uL (1.2-4.9); Mean Corpuscular HGB Conc 32.5 g/dl (31.0-36.0); Mean Corpuscular Hemoglobin 31.2 pg (27.0-33.0); Mean Corpuscular Volume 96.0 fL (80.0-98.0); NRBC Abs Auto 0.000 X10*3/uL (0.0-0.012); NRBC Pct Auto 0.0 /100WBC (0.0-0.2); Platelet Count 150 X10*3/uL (160-400); Red Blood Count 2.98 X10*6/uL (4.60-5.80); White Blood Count 5.9 X10*3/uL (4.8-10.8)
[2025-04-14 11:05] LABS: Alanine Aminotransferase 37 U/L (0-40); Albumin Level 3.5 g/dL (3.5-5.0); Alkaline Phosphatase 329 U/L (39-117); Anion Gap 12 (12-20); Aspartate Amino Transferase 76 U/L (5-37); Blood Urea Nitrogen 14 mg/dL (9-16); Calcium 9.0 mg/dL (8.4-10.2); Carbon Dioxide 23 mmol/L (22-29); Chloride 107 mmol/L (96-108); Cholesterol 162 mg/dL (<200); Estimated Glomerular Filt Rate > 60; HDL Cholesterol 49 mg/dL (>40); Potassium 4.5 mmol/L (3.3-5.1); Sodium 137 mmol/L (135-145); Total Protein 7.4 g/dL (6.5-8.0); Triglycerides 104 mg/dL (<150)
[2025-04-14 11:22] LABS: Ferritin 911 ng/mL (20-250)
[2025-04-14 11:31] LABS: Folate 16.3 ng/mL (> or = 4.0); Prostate Specific Antigen < 0.10 ng/mL (<0.05-4.0)
== END 2025-04-14 09:19 | disposition home or self-care (01) ==
LOC: HO.LAB 09:18
PROVIDERS: PCP Internal Medicine; Visit Provider Internal Medicine Medical Oncology
DX: I10 Essential (primary) hypertension (principal); E11.9 Type 2 diabetes mellitus without complications; E03.9 Hypothyroidism, unspecified; E78.2 Mixed hyperlipidemia; D64.9 Anemia, unspecified; N40.1 Benign prostatic hyperplasia with lower urinary tract symptoms; Z12.5 Encounter for screening for malignant neoplasm of prostate
CPT/HCPCS: 36415; 80053; 80061; 82105; 82728; 82746; 84153; 85025

== ENCOUNTER 2025-04-17 09:29 | Outpatient (REF) | payer OTHER, SELFPAY ==
--- OUTSIDE RECORDS SUMMARY | 2023-12-29 10:30 | XMS_ITS ---
Author Organization Darrian Ziegler III, MD Address [address] [place] [address] Care Team Providers Care Physical Therapy Director Name Role Phone Tony PINK, [facility] Primary Care Provider Darrian Smith [phone] Allergies Allergen (clinical drug ingredient) Drug/Non Drug [...] Date Provider Diagnosis Darrian Ziegler III, MD [address] [place] [address] [place] [address] 12/29/2023 Darrian Ziegler HTN (hypertension) I 10 [...] OV Provider Name:Darrian Ziegler, 05/04/2025 10:30:00 AM, [address] [place] [address], [address], Progress Notes * Zehra AGOSTO KDOB: (73 yo M)Acc No.[id number]:12/29/2023 Progress Notes Patient: Vance ayoub Zehra Sissy Provider: Yahaira Ziegler MD :1950 A ge:73 Y S ex:Male Date:12/29/2023 Address:[address] [place], [place] [phone] Pcp:Hilary Jimenez MD Subjective: * Chief Complaints: [...] medical issues. Her into the emergency room [facility] December 22, 2023 for a urinary [...] ggressive non-smoker Quentin olivares was born in [facility] and now lives in [place], [place]. He is and has several children. [...] 30 L >40 - mg/dL L ab:Comprehensive [place]. Panel Fast (Order Date - 12/18/2023) (Collection [...] Range?Hemoglobin A1c %6.2H<6.0 - % ?Estimated Average Rxvhmte318- mg/dL ???Lab:Microalbumin, Random (Order Date - 12/18/2023) (Collection Date - 12/18/2023)?ValueReference Range?Creatinine Urine75.67- mg/dL ?Microalbumin Djwko319.0- mg/L?Microalbum Creatinine Ratio Ur199.5 H<30 - ug/mg [...] 12/29/2023 Generated for Ana cabrera/Linden/Reneeitting on: 0 04/17/2025 10:46 AM EDT History and Physical Notes * HPI [...]
--- OUTSIDE RECORDS SUMMARY | 2024-05-02 11:30 | XMS_ITS ---
Author Organization Darrian Ziegler III, MD Address [address] [place] [place] [address] Care Team Providers Care Chief Development Officer Name Role Phone Tony PINK, [facility] Primary Care Provider Darrian Smith [phone] Allergies Allergen (clinical drug ingredient) Drug/Non Drug [...] Date Provider Diagnosis Darrian Ziegler III, MD [address] [place] [address] [address] [place], KAREN [address] 05/02/2024 Darrian Ziegler HTN (hypertension) I 10 [...] the liver has been done by his sailing instructor, Dr. Burnett. It showed thickening of the [...] OV Provider Name:Darrian Ziegler, 05/04/2025 10:30:00 AM, [address] [place] [address] [address] [facility] [place], [address], Progress Notes * Candelario AGOSTOchandu KDOB: (74 yo M)Acc No.[id number]:05/02/2024 Progress Notes Patient: Zehra GALICIA Provider: Yahaira Ziegler MD :1950 A ge:74 Y S ex:Male Date:05/02/2024 Address:[address] [place], [place] [phone] Pcp:Hilary Jimenez MD Subjective: * Chief Complaints: [...] born in [place] and now lives in [place], [place]. He is and has several children. [...] Temp:97.2, Wt-k.06. * P ast Orders: Lab:[facility] [place]. Cate l Fast * Collection Date 04/15/2024 [...] the liver has been done by his sailing instructor, Dr. Burnett. It showed thickening of the [...] 05/02/2024 Generated for Printi ng/Fabonig/eTransmitting on: 0 04/17/2025 10:44 AM EDT History and Physical Notes * HPI (History of Present Illness) Category Sub-Category Detail Notes COVID-19 Screening Questions Have you had any new onset fever, chills, cough, congestion, sore throat, shortness of breath, muscle aches?: No Have you been exposed to the virus withi n the last 10 days?: No Have you travelled internationally in [facility] last 10 days?: No Have you [...]
--- OUTSIDE RECORDS SUMMARY | 2024-12-26 05:20 | XMS_ITS ---
Author Organization [facility] Address 10 [facility] [address] [place] [address] Care Team Providers Care Manager Market Research Name Role Phone Hilary Jimenez Primary Care Provider Unavailab Joe Hardy Jr [phone] REASON FOR VISIT cirrhosis Encounters Encounter Location Date Provider Diagnosis [facility] [address] [facility] [address] [place] [address] 12/26/2024 Joe Burnett Jr Plan Of Treatment Next Appt Details Provider Name:Joe estrada Jr, 05/05/2025 08:10:00 AM, [address] [place] [address] , [place], [place], [phone], Progress Notes * AGOSTO, Zehra KDOB: (75 yo M)Acc No.[id number]:12/26/2024 Progress Notes Patient: Candelario GALICIAchandu Sissy Provider: Symone Burnett MD :1950 A ge:74 Y S ex:Male Date:12/26/2024 Address:[address] [place] [address] Pcp:Hilary Jimenez Subjective: * Chief Complaints: * [...] 12/26/2024 Generated for Ana cabrera/Linden/Nigel on: 0 04/17/2025 10:46 AM EDT
--- OUTSIDE RECORDS SUMMARY | 2024-12-27 13:00 | XMS_ITS ---
Author Organization Darrian Ziegler III, MD Address [address] [place] [address] Care Team Providers Care Coring Machine Operator Name Role Phone Tony PINK, Hilary Primary Care Provider Darrian Smith [phone] REASON FOR VISIT Followup Encounters Encounter Location Date Provider Diagnosis Darrian Ziegler III, MD [address] [place] [address] [place] [address] 12/27/2024 Darrian Ziegler Plan Of Treatment Next Appt Details Provider Name:Darrian Ziegler, 05/04/2025 10:30:00 AM, [address] [place] [address] [place], [address], Progress Notes * Zehra AGOSTO KDOB: (75 yo M)Acc No.[id number]:12/27/2024 Progress Notes Patient: Zehra GALICIA Provider: Yahaira Ziegler MD :1950 A ge:74 Y S ex:Male Date:12/27/2024 Phone: Address:[address] [place] [address] Pcp:Hilary Jimenez MD Subjective: * Chief Complaints: [...] 12/27/2024 Generated for Ana cabrera/Linden/Reneeitting on: 0 04/17/2025 10:45 AM EDT
--- OUTSIDE RECORDS SUMMARY | 2025-01-31 06:15 | XMS_ITS ---
Author Organization Darrian Ziegler III, MD Address [address] [address] Care Team Providers Care Bandoleer Packer Name Role Phone Tony PINK, [facility] Primary Care Provider Darrian Smith [phone] Allergies Allergen (clinical drug ingredient) Drug/Non Drug [...] Date Provider Diagnosis Darrian Ziegler III, MD [address] [place] [address] [place] [address] 01/31/2025 Darrian Ziegler Urothelial carcinoma C68.9 ; [...] the liver has been done by his certified orthotic fitter, Dr. Burnett. It showed thickening of the [...] OV Provider Name:Darrian Ziegler, 05/04/2025 10:30:00 AM, [address] [place] [address], [address], Progress Notes * JOSEPH Zehra KDOB: (74 yo M)Acc No.[id number]:01/31/2025 Progress Notes Patient: Zehra GALICIA Provider: Yahaira Ziegler MD :1950 A ge:74 Y S ex:Male Date:01/31/2025 Phone: Address:[address] [place] [phone] Pcp:Hilary Jimenez MD Subjective: * Chief Complaints: [facility] and now lives in [place], [place]. He is and has several children. [...] the liver has been done by his certified orthotic fitter, Dr. Burnett. It showed thickening of the [...] 01/31/2025 Generated for Ana cabrera/Linden/Tiannasmitting on: 0 04/17/2025 10:46 AM EDT History [...]
--- OUTSIDE RECORDS SUMMARY | 2025-03-07 07:00 | XMS_ITS ---
Author Organization [facility] Address [address] [place] [address] Care Team Providers Care Telemarketing Sales Representative Name Role Phone Hilary Jimenez Primary Care Provider Unavailab Joe Hardy Jr REASON FOR VISIT abn findings in stool Encounters Encounter Location Date Provider Diagnosis [facility] [place] [address] [place] [id number] 03/07/2025 Joe Burnett Jr Plan Of Treatment Next Appt Details Provider Name:Joe estrada Jr, 05/05/2025 08:10:00 AM, [address] [place] [address], [phone], Progress Notes * Zehra AGOSTO KDOB: (75 yo M)Acc No.[id number]:03/07/2025 EGD and COL/MAC Patient: Vance SHANELLEGayZehra Provider: Symone Burnett MD :1950 A ge:74 Y S ex:Male Date:03/07/2025 Address:[address] [place] [phone] Pcp:Hilary Jimenez Subjective: * Chief Complaints: * [...] 03/07/2025 Generated for Ana cabrera/Linden/Nigel on: 0 04/17/2025 10:45 AM EDT
--- OUTSIDE RECORDS SUMMARY | 2025-04-04 07:10 | XMS_ITS ---
Author Organization [facility] Address [address] [place] [address] Care Team Providers Care Lcsw Name Role Phone Hilary Jimenez Primary Care Provider Unavailab Joe Hardy Jr [phone] REASON FOR VISIT abnormal ct scan Encounters Encounter Location Date Provider Diagnosis [facility] [place] [address] [place] [id number] 04/04/2025 Joe Burnett Jr Plan Of Treatment Next Appt Details Provider Name:Joe estrada Jr, 05/05/2025 08:10:00 AM, [address] [place] [address], [phone], Progress Notes * Zehra AGOSTO KDOB: (75 yo M)Acc No.[id number]:04/04/2025 EGD and COL/MAC Patient: Vance MCCLOUD Zehra Sheehan Provider: Symone Burnett MD :1950 A ge:75 Y S ex:Male Date:04/04/2025 Address:[address] [place] [phone] Pcp:Hilary Jimenez Subjective: * Chief Complaints: * [...] 04/04/2025 Generated for Ana cabrera/Linden/Nigel on: 0 04/17/2025 10:45 AM EDT
[2025-04-17 10:17] LABS: Hemoglobin A1C 72.6815 umol/L; Total Hemoglobin (HGBA1C) 2433.1449 umol/L
[2025-04-17 10:32] LABS: Alanine Aminotransferase 29 U/L (0-40); Albumin Level 3.3 g/dL (3.5-5.0); Alkaline Phosphatase 321 U/L (39-117); Anion Gap 12 (12-20); Aspartate Amino Transferase 57 U/L (5-37); Blood Urea Nitrogen 16 mg/dL (9-16); Calcium 8.8 mg/dL (8.4-10.2); Carbon Dioxide 19 mmol/L (22-29); Chloride 110 mmol/L (96-108); Estimated Glomerular Filt Rate > 60; Potassium 4.4 mmol/L (3.3-5.1); Sodium 137 mmol/L (135-145); Total Protein 7.3 g/dL (6.5-8.0)
--- OUTSIDE RECORDS SUMMARY | 2025-04-17 10:45 | XMS_ITS | Patient Health Record ---
Author Organization [facility] Address [address] [place] [address] Care Team Providers Care Transonic Engineer Name Role Phone Hilary Boss Primary Care [...] Provider Speciality Internal M edicine Referred Organization [facility] Referred Provider Joe Echavarria Jr Referred Address [address],[place], [place],[address], Referred Provider Specialty Gastroentero logy General Notes Brooklyn Barkley 2024 10:14:44 AM > REQUESTED HERACLIO REFEFFAL FROM DR BOSS'S OFFICE FOR VISIT WITH DR ECHAVARRIA ON 02-15-25, Brooklyn Barkley 02/15/2025 11:39:50 AM >no referral required since patient is in the same [place] of care Referral Priority Routine Medications Medication [...] Risk Notes Problem Oesophageal varices without bleeding (53048080) Secondary esophageal varices without bleeding (I85.10) Active confirmed Problem Portal hypertension (08281242) Portal hypertension (K76.6) Active confirmed Problem 501129071 Liver mass (R16.0) Active confirmed Problem 842523559 Liver lesion (K76.9) Active confirmed Problem 56222326514979848 Abnormal CT scan, liver (R93.2) Active confirmed Problem 44947134 Cirrhosis of liver without ascites, unspecified hepatic cirrhosis type (K74.60) Active confirmed Vital Signs Temperature 97.7 degrees Fahrenheit 02/15/2025 Blood pressure diastolic 01 mm Hg 02/15/2025 Height 62 in 02/15/2025 Blood pressure systolic 001 mm Hg 02/15/2025 Weight 120 lbs 02/15/2025 BMI 21.95 kg/m2 02/15/2025 Encounters Encounter Location Date Provider Diagnosis [facility] [address] [place] [address] 05/12/2024 Joe Echavarria Jr Liver lesion K76.9 and Cirrhosis of liver without ascites, unspecified hepatic cirrhosis type K74.60 [facility] [address] [place] [address] 02/15/2025 Joe Echavarria Jr Abnormal findings in stool R19.5 [facility] [address] [place] [address] 04/27/2024 Joe Echavarria Jr Liver mass R16.0 [facility] [address] [place] [address] 12/26/2024 Jeo Echavarria Jr [facility] [address] [place], [place] [address] [address] 02/28/2025 Joe Echavarria Jr [facility] [address] [place] [address] 02/28/2025 Joe Echavarria Jr [facility] [address] [place], [place] [address] 03/30/2025 Joe Echavarria Jr Assessments Encounter Date Diagnosis (ICD Code) Assessment Notes Treatment Notes Treatment Clinical Notes Section Notes 05/12/2024 Liver lesion (ICD-10 - K76.9) Liver disease - resources material was printed. Please obtain the laboratory testing and MRI imaging we discussed today while you are in [facility]. We discussed hepatic cirrhosis today. [...] Name:Joe estrada , 05/05/2025 08:10:00 AM, [address] , [place], [place], [id number], Insurance Providers Payer Name Payer Address Payer Phone Subscriber Number Group Number Insured Name Patient Relationship to Insured Coverage Start Date Coverage End Date [facility] [address] [place]A [place] [phone] [id number] Alexia Agosto Self - patient is the insured MEDICAID [facility] [address] [place] [id number] Alexia Agosto Self - patient is the insured Medical (General) History Medical History History ICD Code diabetes asthma Hypertension Bladder cancer Cirrhosis, likely secondary to fatty lonnie er, compensated Surgical History Surgery Date(Month/Year) bladder cancer Radical cystectomy, ileal conduit Hospitalization History Reason Date(Month/Year)
--- OUTSIDE RECORDS SUMMARY | 2025-04-17 10:46 | XMS_ITS | Patient Health Record ---
Author Organization Darrian Ziegler III, MD Address [address] [place] [address] [place] [address] Care Team Providers Care House Sitter Name Role Phone Tony PINK, [facility] Primary Care Provider Darrian Smith [phone] Allergies Allergen (clinical drug ingredient) Drug/Non Drug Allergy documented on EMR Reaction Allergy Type Onset Date Status aspirin Aspirin Unknown Drug Allergy Active Motrin Unknown Drug Allergy Active Results Component Value Reference Range Notes Creatinine GFR POC Reviewed date:06/13/2024 05:47:07 AM Interpretation: Performing Lab:[facility], [address] [place] [phone] Notes/Report: [id number] 0.78 >60 0915 HO.POHJ Creatinine POC 0.8 0.5-1.4 mg/dL GFR POC > 60 Chronic Kidney Disease: Estimated GFR < 60 mL/min/1.73m2 Severe Kidney Disease: Estimated GFR < 15 mL/min/1.73m2 CT urogram Reviewed date:08/01/2024 02:53:04 PM Interpretation: Performing Lab: Notes/Report: [address] [address] [address] Scan Report Signed Patient: Alec Agosto MR#: [id number] : 1950 Acct:[id number] Age/Sex: 74 / M ADM Date: 05/16/24 Loc: HO.CT Attending Dr: Mauro Narayan MD Ordering Physician: Mauro Narayan MD Date of Service: 05/16/24 Procedure(s): CT urogram Accession Number(s): [id number] cc: Mauro Narayan MD; Darrian Ziegler MD [...] by: Jumana Stevens MD 06/22/2024 08:19 PM [facility] Dictated By: Jumana Stevens MD Signed By: <Electronically signed by Jumana Stevens MD in OV> 06/22/242018 DD/ 3 TD/TT: 05/16/24939 Mason Helper: ROMAN [address] [address] [address] Scan Report Signed Patient: Alec Agosto MR#: [id number] : 1950 Acct:[id number] Age/Sex: 74 / M ADM Date: 05/16/24 Loc: HO.CT Attending Dr: Emiliana Blankenship MD Ordering Physician: Mauro Narayan MD Date of Service: 05/16/24 Procedure(s): CT urogram Accession Number(s): [id number] cc: Mauro Narayan MD; Darrian Ziegler MD [...] foc al hepatic lesion seen. * Chronic bronchiectasis in the left lower lobe with progressive linear area of atelectasis or scarring seen extending to the posterior lateral pleural surface. Electronically kinga d by: Jumana Stevens MD 06/22/2024 08:19 PM [facility] Dictated By: Jumana Stevens MD Signed By: <Electronically signed by Jumana Stevens MD in OV> 06/22/242018 DD/ 3 TD/TT: 05/16/24939 Mason Helper: ROMAN Complete Blood Count Auto Di ff Reviewed date:01/27/2025 01:46:19 PM Interpretation: Performing Lab:[facility], [address] [place] [phone] Notes/Report: White Blood Count 7.4 4.8-10.8 X10*3/uL [...] X10*3/uL NRBC Abs Auto 0.000 0.0-0.012 X10*3/uL C ORRECTED REPORT Comprehensive [place]. Panel Fa st Reviewed date:01/27/2025 01:46:19 PM Interpretation: Performing Lab:[facility], [address] [place] [phone] Notes/Report: Sodium 138 135-145 mmol/L Potassium 4.2 [...] Reviewed date:01/27/2025 01:46:19 PM Interpretation: Performing Lab:[facility], [address] [place] [phone] Notes/Report: Triglycerides 95 <150 mg/dL Desirable Triglyceride: [...] Antigen Reviewed date:01/27/2025 01:46:19 PM Interpretation: Performing Lab:[facility], [address] [place] [phone] Notes/Report: Prostate Specific Antigen < 0.10 <0.05-4.0 ng/mL PSA methodology: Rodriguez Alinity i Chemiluminescent Microparticle Immunoassay (CMIA) SLIDE REVIEW Reviewed date:01/27/2025 01:46:19 PM Interpretation: Performing Lab:[facility], [address] [place] [phone] Notes/Report: SLIDE REVIEW VERIFIED Complete Blood Count Auto Di ff Reviewed date:01/27/2025 01:46:19 PM Interpretation: Performing Lab:[facility], [address] [place] [phone] Notes/Report: White Blood Count 7.4 4.8-10.8 X10*3/uL [...] X10*3/uL NRBC Abs Auto 0.000 0.0-0.012 X10*3/uL C ORRECTED REPORT Complete Blood Count Auto Di ff Reviewed date:04/17/2025 09:18:18 AM Interpretation: Performing Lab:[facility], [address] [place] [phone] Notes/Report: White Blood Count 5.9 4.8-10.8 X10*3/uL Red Blood Count 2.98 4.60-5.80 X10*6/uL Hemoglobin 9.3 14.0-18.0 g/dl Hematocrit 28.6 42.0-52.0 % Mean Corpuscular Volume 96.0 80.0-98.0 fL Mean Corpuscular Hemoglobin 31.2 27.0-33.0 pg Mean Corpuscular HGB Conc 32.5 31.0-36.0 g/dl Red Cell Distribution Width 17.8 11.0-16.0 % Platelet Count 150 160-400 X10*3/uL Mean Platelet Volume 11.4 9.4-12.4 fL Neutrophils Percent Auto 48.9 45-73 % Imm Gran Pct Auto 1.0 0.0-0.4 % Lymphocytes Percent Auto 21.2 20-40 % Monocytes Percent Auto 10.3 2-11 % Eosinophils Percent Auto 17.1 0-4 % Basophils Percent Auto 1.5 0-2 % NRBC Pct Auto 0.0 0.0-0.2 /100WBC Neutrophils Absolute Auto 2.9 2.0-8.3 x10*3/uL Imm Gran Abs Auto 0.06 0.00-0.03 X10*3/uL Lymphocytes Absolute Auto 1.2 1.2-4.9 X10*3/uL Monocytes Absolute Auto 0.6 0.1-1.2 X10*3/uL Eosinophils Absolute Auto 1.0 0.0-0.4 X10*3/uL Basophils Absolute Auto 0.1 0.0-0.2 X10*3/uL NRBC Abs Auto 0.000 0.0-0.012 X10*3/uL Comprehensive [place]. Panel Fa st Reviewed date:04/17/2025 09:18:18 AM Interpretation: Performing Lab:[facility], [address] [place] [phone] Notes/Report: Sodium 137 135-145 mmol/L Potassium 4.5 3.3-5.1 mmol/L Chloride 107 96-108 mmol/L Carbon Dioxide 23 22-29 mmol/L Anion Gap 12 12-20 Blood Urea Nitrogen 14 9-16 mg/dL Creatinine 1.08 0.5-1.4 mg/dL Estimated Glomerular Filt Rate > 60 Chronic Kidney Disease: Estimated GFR < 60 mL/min/1.73m2 Severe Kidney Disease: Estimated GFR < 15 mL/min/1.73m2 Glucose Fasting 111 60-99 mg/dL A fasting glucose from 100-125 mg/dl is considered impaired (pre-diabetes). Calcium 9.0 8.4-10.2 mg/dL Bilirubin Total 0.8 0.0-1.0 mg/dL Aspartate Amino Transferase 76 5-37 U/L Alanine Aminotransferase 37 0-40 U/L Total Protein 7.4 6.5-8.0 g/dL Albumin Level 3.5 3.5-5.0 g/dL Alkaline Phosphatase 329 39-117 U/L Ferritin Reviewed date:04/17/2025 09:18:18 AM Interpretation: Performing Lab:[facility], [address] [place] [phone] Notes/Report: Ferritin 911 20-250 ng/mL Lipid Panel Reviewed date:04/17/2025 09:18:18 AM Interpretation: Performing Lab:[facility], [address] [place] [phone] Notes/Report: Triglycerides 104 <150 mg/dL Desirable Triglyceride: less than 150 mg/dL Borderline High Triglyceride 150-199 mg/dL High Triglyceride: 200-499 mg/dL Very High Triglyceride: greater than or equal to 5OO mg/dL Cholesterol 162 <200 mg/dL Desirable Cholesterol: less than 200 mg/dL Borderline High Cholesterol: 200-239 mg/dL High Cholesterol: greater than 239 mg/dL LDL Cholesterol Calculated 93 <100 mg/dL Desirable LDL: less than 100 mg/dL Near Optimal/Above Optimal LDL: 110-129 mg/dL Borderline High LDL: 130-159 mg/dL High LDL: 160-189 mg/dL Very High LDL: greater than or equal to 190 mg/dL HDL Cholesterol 49 >40 mg/dL Desirable HDL: greater than 40 mg/dL Note: This HDL assay may give artificially low results in patients with liver disease. Prostate Specific Antigen Reviewed date:04/17/2025 09:18:18 AM Interpretation: Performing Lab:[facility], [address] [place] [phone] Notes/Report: Prostate Specific Antigen < 0.10 <0.05-4.0 ng/mL PSA methodology: Rodriguez Alinity i Chemiluminescent Microparticle Immunoassay (CMIA) Folate Reviewed date:04/17/2025 09:18:18 AM Interpretation: Performing Lab:[address] [phone] Notes/Report: Folate 16.3 > or = 4.0 ng/mL Reference Values: > or = 4.0 ng/mL < 4.0 ng/mL suggests folate deficiency Methotrexate, aminopterin and folinic acid (leucovorin) are chemotherapeutic agents whose molecular structures are similar to folate; therefore, the Food Safety Field Specialist folate assay cannot be used for patients using these drugs. Reason For Referral No Information Medications Medication [...] Status W/U Status Risk Notes Problem Asthma (444232545) Asthma (J45.909) Active confirmed He repo rts no difficulty with breathing since his last visit. He tolerated the hot weather of the summer without difficulty. Problem Anemia (381515821) Anemia (D64.9) Active confirmed The hemat ocrit this month is 31.9 with a mean cell volume of 100.9. This value will be observed. It is stable. Problem Diabetes mellitus (66972722) Diabetes mellitus (E11.9) Active confirmed His diabete s has been well controlled. No change in his medications was necessary today. Problem 161436206 Mixed hyperlipidemia (E78.2) Active confirmed Is currently stable and no change in his treatment is needed. Problem Hypertension (62354355) HTN (hypertension) (I10) Active confirmed His blood pressure is currently stable at 139/62 and no change in his regimen is needed today. Problem Hypothyroid (09002795) Hypothyroid (E03.9) Active confirmed He remains euthyroid. No change in his medication was needed. Problem 278701292 Urothelial carcinoma (C68.9) Active confirmed There is no sign of recurrent disease at this time. The ileostomy is functioning well. Problem 9987959107354 Benign prostatic hyperplasia with lower urinary tract symptoms (N40.1) Active confirmed He rises from sleep once or twice a night to urinate depending upon fluid intake. We reviewed lifestyle modification she could make to reduce nocturia. Problem High cholesterol (97685287) High cholesterol (E78.00) Active confirmed Problem 977068224 Ileostomy in place (Z93.2) Active confirmed The urine in the bag appeared to be completely normal. He has had no bleeding. The ostomy is functioning well. Problem 16207323 Cirrhosis of liver without ascites, unspecified hepatic [...] An alpha-fetoprote in will be obtained. Problem 037295181 History of tuberculosis (Z86.11) Active confirmed Vital Signs Heart Rate 70 /min 01/31/2025 Temperature 97.3 degrees Fahrenheit 01/31/2025 Blood pressure diastolic 62 mm Hg 01/31/2025 Height 61 in 01/31/2025 Blood pressure systolic 139 mm Hg 01/31/2025 Weight 130 lbs 01/31/2025 BMI 24.56 kg/m2 01/31/2025 Encounters Encounter Location Date Provider Diagnosis Darrian Ziegler III, MD [address] [place] [address] [address] [place], [place] [address] 05/02/2024 Darrian Ziegler HTN (hypertension) I 10 ; Anemia D64.9 ; Mixed hyperlipidemia E78.2 ; Benign prostatic hyperplasia with lower urinary tract symptoms N40.1 ; Diabetes mellitus E11.9 ; Urothelial carcinoma C68.9 and Cirrhosis of liver without ascites, unspecified hepatic cirrhosis type K74.60 Darrian Ziegler III, MD [address] [place] [address] [place] [address] 01/31/2025 Darrian Ziegler Urothelial carcinoma C68.9 ; [...] the liver has been done by his medical records clerk, Dr. Burnett. It showed thickening of the [...] the liver has been done by his medical records clerk, Dr. Burnett. It showed thickening of the [...] Details Provider Name:Darrian Ziegler, 05/04/2025 10:30:00 AM, [address] [place] [address] , [facility] [place], [place], [address], Insurance Providers Payer Name Payer Address Payer Phone Subscriber Number Group Number Insured Name Patient Relationship to Insured Coverage Start Date Coverage End Date [facility] [address] [place] [address] [id number] Alexia Agosto Self - patient is the insured MEDICAID [facility] [address] [place] [id number] Alexia Agosto Self - patient is the insured MEDICARE [employer] [address] [place] [phone] [id number] Alexia Agosto Self - patient is the [...]
== END 2025-04-17 09:30 | disposition home or self-care (01) ==
LOC: HO.LAB 09:29
PROVIDERS: PCP Internal Medicine; Visit Provider Internal Medicine
DX: I10 Essential (primary) hypertension (principal); E11.9 Type 2 diabetes mellitus without complications; J45.909 Unspecified asthma, uncomplicated; R19.5 Other fecal abnormalities; R80.8 Other proteinuria
CPT/HCPCS: 36415; 80053; 83036

== ENCOUNTER 2025-04-18 13:07 | Outpatient (AMB) | payer OTHER, SELFPAY ==
--- OUTSIDE RECORDS SUMMARY | 2023-12-29 10:30 | XMS_ITS ---
Author Organization Darrian Ziegler III, MD Address [address] [place] [address] Care Team Providers Care Stockroom Clerk Name Role Phone Tony PINK, [facility] Primary Care Provider Darrian Smith [phone] Allergies Allergen (clinical drug ingredient) Drug/Non Drug [...] 24 Blood pressure diastolic 67 mm Hg 024 Heart Rate 76 /min 12/29/2023 Height 61 in 12/29/2023 Weight 128 lbs 12/29/2023 BMI 24.18 kg/m2 12/29/2023 Encounters Encounter Location Date Provider Diagnosis Darrian Ziegler III, MD [address] [place] [address] [place] [address] 12/29/2023 Darrian Ziegler HTN (hypertension) I 10 [...] Up: 4 Months, Reason: OV Provider Name:Darrian Ziegler, 05/04/2025 10:30:00 AM, [address] [place] [address], [address], Progress Notes * Zehra AGOSTO KDOB: (73 yo M)Acc No.[id number]:12/29/2023 Progress Notes Patient: Vance ayoub Zehra Sissy Provider: Yahaira Ziegler MD :1950 A ge:73 Y S ex:Male Date:12/29/2023 Address:[address] [place], [place] [phone] Pcp:Hilary Jimenez MD Subjective: * Chief Complaints: [...] medical issues. Her into the emergency room [facility] December 22, 2023 for a urinary tract [...] ggressive non-smoker Quentin olivares was born in [facility] and now lives in [place], [place]. He is and has several children. [...] 30 L >40 - mg/dL L ab:Comprehensive [place]. Panel Fast (Order Date - 12/18/2023) (Collection [...] Range?Hemoglobin A1c %6.2H<6.0 - % ?Estimated Average Ynhpaxm806- mg/dL ???Lab:Microalbumin, Random (Order Date - 12/18/2023) (Collection Date - 12/18/2023)?ValueReference Range?Creatinine Urine75.67- mg/dL ?Microalbumin Vwsik533.0- mg/L?Microalbum Creatinine Ratio Ur199.5 H<30 - ug/mg [...] MD Date: 0 12/29/2023 Generated for Ana cabrera/Linden/Reneeitting on: 0 04/18/2025 03:25 PM EDT History and Physical Notes * HPI (History [...]
--- OUTSIDE RECORDS SUMMARY | 2024-05-02 11:30 | XMS_ITS ---
Author Organization Darrian Ziegler III, MD Address [address] [place] [address] Care Team Providers Care Coil Shaper Name Role Phone Tony PINK, [facility] Primary Care Provider Darrian Smith [phone] Allergies Allergen (clinical drug ingredient) Drug/Non Drug [...] Date Provider Diagnosis Darrian Ziegler III, MD [address] [place] [address] [place], KAREN [address] 05/02/2024 Darrian Ziegler HTN (hypertension) I 10 [...] the liver has been done by his fruit culler, Dr. Burnett. It showed thickening of the [...] OV Provider Name:Darrian Ziegler, 05/04/2025 10:30:00 AM, [address] [place] [address] DR [facility] [place], [address], Progress Notes * Candelario AGOSTOchandu KDOB: (74 yo M)Acc No.[id number]:05/02/2024 Progress Notes Patient: Zehra GALICIA Provider: Yahaira Ziegler MD :1950 A ge:74 Y S ex:Male Date:05/02/2024 Address:[address] [place], [place] [phone] Pcp:Hilary Jimenez MD Subjective: * Chief Complaints: [...] born in [place] and now lives in [place], [place]. He is and has several children. [...] Temp:97.2, Wt-k.06. * P ast Orders: Lab:[facility] [place]. Cate l Fast * Collection Date 04/15/2024 [...] the liver has been done by his fruit culler, Dr. Burnett. It showed thickening of the [...] 05/02/2024 Generated for Printi ng/Fabonig/eTransmitting on: 0 04/18/2025 03:24 PM EDT History and Physical Notes * HPI (History of Present Illness) Category Sub-Category Detail Notes COVID-19 Screening Questions Have you had any new onset fever, chills, cough, congestion, sore throat, shortness of breath, muscle aches?: No Have you been exposed to the virus withi n the last 10 days?: No Have you travelled internationally in [facility] last 10 days?: No Have you been [...]
--- OUTSIDE RECORDS SUMMARY | 2024-12-26 05:20 | XMS_ITS ---
Author Organization [facility] Address 10 [facility] [address] [place] [address] Care Team Providers Care National Guard Member Name Role Phone Hilary Jimenez Primary Care Provider Unavailab Joe Hardy Jr REASON FOR VISIT cirrhosis Encounters Encounter Location Date Provider Diagnosis [facility] [address] [facility] [address] [place] [address] 12/26/2024 Joe Burnett Jr Plan Of Treatment Next Appt Details Provider Name:Joe estrada Jr, 05/05/2025 08:10:00 AM, [address] [place] [address] , [place], [place], [phone], Progress Notes * AGOSTO, Zehra KDOB: (75 yo M)Acc No.[id number]:12/26/2024 Progress Notes Patient: Candelario GALICIAchandu Sissy Provider: Symone Burnett MD :1950 A ge:74 Y S ex:Male Date:12/26/2024 Address:[address] [place] [address] Pcp:Hilary Jimenez Subjective: * Chief Complaints: * [...] 0 12/26/2024 Generated for Ana cabrera/Linden/Nigel on: 0 04/18/2025 03:25 PM EDT
--- OUTSIDE RECORDS SUMMARY | 2024-12-27 13:00 | XMS_ITS ---
Author Organization Darrian Ziegler III, MD Address [address] [facility] [place] [address] Care Team Providers Care Miner Name Role Phone Tony PINK, Hilary Primary Care Provider Darrian Smith [phone] REASON FOR VISIT Followup Encounters Encounter Location Date Provider Diagnosis Darrian Ziegler III, MD [address] [place] [address] [place] [address] 12/27/2024 Darrian Ziegler Plan Of Treatment Next Appt Details Provider Name:Darrian Ziegler, 05/04/2025 10:30:00 AM, [address] [place] [address] [place], [address], Progress Notes * Zehra AGOSTO KDOB: (75 yo M)Acc No.[id number]:12/27/2024 Progress Notes Patient: Zehra GALICIA Provider: Yahaira Ziegler MD :1950 A ge:74 Y S ex:Male Date:12/27/2024 Phone: Address:[address] [place] [address] Pcp:Hilary Jimenez MD Subjective: * Chief Complaints: [...] 12/27/2024 Generated for Ana cabrera/Linden/Reneeitting on: 0 04/18/2025 03:24 PM EDT
--- OUTSIDE RECORDS SUMMARY | 2025-01-31 06:15 | XMS_ITS ---
Author Organization Darrian Ziegler III, MD Address [address] [address] Care Team Providers Care Apartment Assistant Manager Name Role Phone Tony PINK, [facility] Primary Care Provider Darrian Smith [phone] Allergies Allergen (clinical drug ingredient) Drug/Non Drug [...] Provider Diagnosis Darrian Ziegler III, MD [address] [place] [address] [place] [address] 01/31/2025 Darrian Ziegler Urothelial carcinoma C68.9 ; [...] the liver has been done by his delivery aide, Dr. Burnett. It showed thickening of the [...] 01/31/2025 CBC w DIFF 01/31/2025 ALPHA-FETOPROTEIN,TUMOR MARKER 5 Ferritin 01/31/2025 Lipid Panel 01/31/2025 Folate 01/31/2025 Next Appt Details Follow Up: 3 Months, Reason: OV Provider Name:Darrian Ziegler, 05/04/2025 10:30:00 AM, [address] [place] [address], [address], Progress Notes * JOSEPH Zehra KDOB: (74 yo M)Acc No.[id number]:01/31/2025 Progress Notes Patient: Zehra GALICIA Provider: Yahaira Ziegler MD :1950 A ge:74 Y S ex:Male Date:01/31/2025 Phone: Address:[address] [place] [phone] Pcp:Hilary Jimenez MD Subjective: * Chief Complaints: [...] ggressive non-smoker Quentin olivares was born in [facility] and now lives in [place], [place]. He is and has several children. [...] the liver has been done by his delivery aide, Dr. Burnett. It showed thickening of the [...] 0 01/31/2025 Generated for Ana cabrera/Linden/Tiannasmitting on: 0 04/18/2025 03:25 PM EDT History [...]
--- OUTSIDE RECORDS SUMMARY | 2025-03-07 07:00 | XMS_ITS ---
Author Organization [facility] Address [address] [place] [address] Care Team Providers Care Maintenance And Engineering Manager Name Role Phone Hilary Jimenez Primary Care Provider Unavailab Joe Hardy Jr REASON FOR VISIT abn findings in stool Encounters Encounter Location Date Provider Diagnosis [facility] [address] [place] [id number] 03/07/2025 Joe Burnett Jr Plan Of Treatment Next Appt Details Provider Name:Joe estrada Jr, 05/05/2025 08:10:00 AM, [address] [place] [address], [phone], Progress Notes * Zehra AGOSTO KDOB: (75 yo M)Acc No.[id number]:03/07/2025 EGD and COL/MAC Patient: Vance SHANELLEGayZehra Provider: Symone Burnett MD :1950 A ge:74 Y S ex:Male Date:03/07/2025 Address:[address] [place] [phone] Pcp:Hilary Jimenez Subjective: * Chief Complaints: * [...] 03/07/2025 Generated for Ana cabrera/Linden/Nigel on: 0 04/18/2025 03:24 PM EDT
--- OUTSIDE RECORDS SUMMARY | 2025-04-04 07:10 | XMS_ITS ---
Author Organization [facility] Address [address] [place] [address] Care Team Providers Care Forge Press Operator Name Role Phone Hilary Jimenez Primary Care Provider Unavailab Joe Hardy Jr [phone] REASON FOR VISIT abnormal ct scan Encounters Encounter Location Date Provider Diagnosis [facility] Out[place] [address] [place] [id number] 04/04/2025 Joe Burnett Jr Plan Of Treatment Next Appt Details Provider Name:Joe estrada Jr, 05/05/2025 08:10:00 AM, [address] [place] [address], [phone], Progress Notes * Zehra AGOSTO KDOB: (75 yo M)Acc No.[id number]:04/04/2025 EGD and COL/MAC Patient: Vance MCCLOUD Zehra Sheehan Provider: Symone Burnett MD :1950 A ge:75 Y S ex:Male Date:04/04/2025 Address:[address] [place] [phone] Pcp:Hilary Jimenez Subjective: * Chief Complaints: * [...] 04/04/2025 Generated for Ana cabrera/Linden/Nigel on: 0 04/18/2025 03:24 PM EDT
--- NOTE | 2025-04-18 13:09 | MHC.OFFVIS ---
Intake Visit Reasons: hematuria and UTI Intake Note: Patient is Present for Emergency Dept follow up Urology Med: none Antibiotic Allergy: None Blood Thinner: None Imaging done 03/23/2025 : CT and Xray Counter Installer Required: No Accompanied by: Self / Same As Patient Allergies aspirin Allergy (Verified 04/18/25 13:11) Unknown Beta-Blockers (Beta-Adrenergic Bloc Adverse Reaction (Verified 04/18/25 13:11) Unknown ibuprofen Adverse Reaction (Verified 04/18/25 13:11) Unknown HPI Comments Details: Allen is a very pleasant male. He is a patient of Dr Jimenez. He is seen for the following urologic conditions - invasive bladder cancer - recurring UTI Follow-up from hospital Had repair for hematuria Now with urine leaking around stoma Upon examination has had loss of stoma wall between skin and subcutaneous tissue Likely happen due to devascularization Will need a formal revision Highly likely that we should be able to easily pull more bowel through the body wall Creatinine 1.2 On methenamine with vitamin-C to minimize urinary colonization Here for surveillance imaging HbA1c 8.4 down to 6.1 Imaging with right mild hydro Low folate consistent with ileal diversion and is on supplementation Ileostomy management - Wafer - Securi-T [facility] [id number] - Bag 45mm [id number] - Sponges 4x4 R 39-0335 - Stoma Paste - Povidine Solution IP 10% Invasive bladder cancer T4N1M0 cysto-prostatectomy with adjuvant chemotherapy May 2020 Had been diagnosed with BPH. Went for treatment in [facility]. Prostate resection was performed. Pathology showed invasive high-grade bladder cancer. Subsequently he underwent cysto-prostatectomy May 2020. Pathology T4N2M0 Adjuvant chemotherapy completed Follow-up staging imaging with PET CT negative October 2020 Well-maintained stoma Occasional UTI Imaging - 03/30 CT moderate right hydronephrosis but no timoteo recurrence - 10/01 CT from [facility] with mild right hydronephrosis, question of prior pyelonephritis on left kidney - 11/29 CT scan mild right hydronephrosis, no timoteo recurrence, liver scarring - 12/30 CT scan continue mild right hydronephrosis, no timoteo recurrence, liver scarring consistent with cirrhosis - 05/02 CT scan continue mild right hydronephrosis, some scarring on right kidney, no timoteo recurrence, liver scarring consistent with cirrhosis Laboratories - 03/30 Cr 1.03, 11/29 1.5, 12/31 1.2 Plan for repeat imaging every 6 months for 5 years [facility] Medical History (Updated 04/19/25 @ 08:36 by Mauro Narayan MD) Complication of urostomy History of bladder cancer Abdominal distention Cirrhosis of liver HTN (hypertension) Acute hyponatremia Hydronephrosis Bladder cancer Asthma Diabetes Bladder cancer Incomplete emptying of bladder due to benign prostatic hyperplasia Complicated urinary tract infection Surgical History History of surgery History of ileal conduit Social History Household Members: Family Housing: House Are you a primary child care counselor to a significant other at home: No Do you presently have visiting nurse or other home services: Yes Alcohol intake: never Comment: bedside Patient Tobacco Use Status: Never used Tobacco Advance Directives Date on File: 03/12/25 service: No Current occupational status: retired Review of Systems Const Denies chills and Denies fever(s) Card Reports no additional complaints and Denies syncope Resp Denies cough GI Denies abdominal pain and Denies heartburn Reports as per HPI and Denies change in libido Neuro Denies syncope Psych Denies change in libido Endo Denies change in libido Physical Exam Const General: cooperative, healthy appearing, comfortable and no acute distress Orientation/consciousness: patient oriented x3 HEENT Face and sinus: Yes normal facial exam Mouth: moist mucous membranes Neck Neck: Yes normal visual inspection, Yes full ROM and Yes trachea midline Chest Chest palpation & inspection: normal inspection of the chest Resp Effort & Inspection: normal respiratory effort, able to speak in complete sentences and no respiratory distress GI Inspection: Yes normal to inspection Back/Spine/Pelvis Cervical Spine: normal cervical lordosis Thoracic/Lumbar Spine: thoracic and lumbar spine normal to inspection Skin General skin exam: no rashes or lesions noted Neuro General: patient oriented x3, gait normal, tone normal and moves all extremities Extrem General: Yes normal to inspection and Yes capillary refill normal Results AMB Urinalysis, Automated UA Leukoctes 500 Lucy/uL Last Edit by CON Cordero on 04/18/25 15:08 UA Nitrite Negative Last Edit by CON Cordero on 04/18/25 15:08 UA Urobilinogen 0.2 mg/dL Last Edit by CON Cordero on 04/18/25 15:08 UA Protein 300 mg/dL Last Edit by Amarilys Wilcox [facility] on 04/18/25 15:08 UA pH 7.0 Last Edit by Amarilys Wilcox [facility] on 04/18/25 15:08 UA Blood 200 Ra/uL Last Edit by Amarilys Wilcox [facility] on 04/18/25 15:08 UA Specific [place] 1.010 Last Edit by Amarilys Wilcox [facility] on 04/18/25 15:08 UA Ketone Negative Last Edit by Amarilys Wilcox [facility] on 04/18/25 15:08 UA Bilirubin 0 mg/dL Last Edit by Amarilys Wilcox [facility] on 04/18/25 15:08 UA Glucose 0 mg/dL Last Edit by Aamrilys Wilcox [facility] on 04/18/25 15:08 Results Reviewed Results Reviewed: Laboratory Last Values Urine pH (Auto) 7.0 04/18/25 15:07 Specific [place] (Auto) 1.010 04/18/25 15:07 Urine Protein (Auto) 300 mg/dL 04/18/25 15:07 Glucose (UA)(Auto) 0 mg/dL 04/18/25 15:07 Urine Ketones (Auto) Negative 04/18/25 15:07 Urine Blood (Auto) 200 Ra/uL 04/18/25 15:07 Urine Nitrite (Auto) Negative 04/18/25 15:07 Urine Bilirubin (Auto) 0 mg/dL 04/18/25 15:07 Urine Urobilinogen (Auto) 0.2 mg/dL 04/18/25 15:07 Leukocyte Esterase (Auto) 500 Lucy/uL 04/18/25 15:07 Assessment & Plan Assessment & Plan (1) Bladder cancer: Code(s): C67.9 - Malignant neoplasm of bladder, unspecified Category: Medical Qualifiers: Bladder location: unspecified site Qualified Code(s): C67.9 - Malignant neoplasm of bladder, unspecified (2) Complication of urostomy: Code(s): N99.528 - Other complication of incontinent external stoma of urinary tract Category: Medical Plan Risks, benefits and alternatives to therapy were discussed. These include but are not limited to infection, bleeding, damage to local organs and tissues, need for further interventions. Anesthetic risks regarding cardiac arrhythmia, blood clots, and potential mortality were discussed. The patient understands the typical recovery time and the outpatient nature of the procedure. After consideration of these risks the patient gives full informed consent and they wish to move ahead with the procedure. - stoma revision with Dr. Phelan Orders: Orders AMB Urinalysis Automated 04/18/25 Z13.9 - Encounter for screening, unspecified Patient Instructions: This note is constructed using voice recognition software. While every effort has been made to ensure accuracy mrb engineer errors may have been included. Imaging studies, laboratory and physical exam results were discussed and reviewed in detail. No major barriers to patient understanding were identified. An opportunity to ask questions regarding the treatment plan was provided. All questions were answered. The patient expressed understanding and agreement with the above treatment plan. The patient is aware they should contact our office by phone for worsening of their current condition or the appearance of new urologic symptoms. Compliance is encouraged with any medications and followup testing that is ordered. It is a privilege to participate in the urologic care of your patient. If you have any questions or concerns regarding treatment for the above conditions, or other urologic issues, please do not hesitate to contact me. The office telephone contact is [phone]. Sincerely, Dr Mauro Narayan MD, [facility] - Urology Compassionate Specialist Care for the Genitourinary System Coding Level of Care Code Est Pt Level 3 (67289) Complex EM visit Add On G2211 Diagnoses Malignant neoplasm of urinary bladder, unspecified site C67.9 Bladder location: unspecified site Complication of urostomy N99.528
--- OUTSIDE RECORDS SUMMARY | 2025-04-18 15:24 | XMS_ITS | Patient Health Record ---
Author Organization [facility] Address [address] [place] [address] Care Team Providers Care Engagement Executive Name Role Phone Hilary Boss Primary Care [...] Provider Joe Echavarria Jr Referred Address [address],[place], [place],[address], Referred Provider Specialty Gastroentero logy General Notes Brooklyn Barkley 2024 10:14:44 AM > REQUESTED HERACLIO REFEFFAL FROM DR BOSS'S OFFICE FOR VISIT WITH DR ECHAVARRIA ON 02-15-25, Brooklyn Barkley 02/15/2025 11:39:50 AM >no referral required since patient [place] the [place] Referral Priority Routine Medications Medication [...] Risk Notes Problem Oesophageal varices without bleeding (26271790) Secondary esophageal varices without bleeding (I85.10) Active confirmed Problem Portal hypertension (83496277) Portal hypertension (K76.6) Active confirmed Problem 309202216 Liver mass (R16.0) Active confirmed Problem 395656113 Liver lesion (K76.9) Active confirmed Problem 12913029769908789 Abnormal CT scan, liver (R93.2) Active confirmed Problem 11228890 Cirrhosis of liver without ascites, unspecified hepatic cirrhosis type (K74.60) Active confirmed Vital Signs Temperature 97.7 degrees Fahrenheit 02/15/2025 Blood pressure diastolic 01 mm Hg 02/15/2025 Height 62 in 02/15/2025 Blood pressure systolic 001 mm Hg 02/15/2025 Weight 120 lbs 02/15/2025 BMI 21.95 kg/m2 02/15/2025 Encounters Encounter Location Date Provider Diagnosis [facility] [address] [place] [address] 05/12/2024 Joe Echavarria Jr Liver lesion K76.9 and Cirrhosis of liver without ascites, unspecified hepatic cirrhosis type K74.60 [facility] [address] [place] [address] 02/15/2025 Joe Echavarria Jr Abnormal findings in stool R19.5 [facility] [address] [place] [address] 04/27/2024 Joe Echavarria Jr Liver mass R16.0 [facility] [address] [place] [address] 12/26/2024 Joe Echavarria Jr [facility] [address] [place], [place] [address] [address] 02/28/2025 Joe Echavarria Jr [facility] [address] [place] [address] 02/28/2025 Joe Echavarria Jr [facility] [address] [place], [place] [address] 03/30/2025 Joe Echavarria Jr Assessments Encounter Date Diagnosis (ICD Code) Assessment Notes Treatment Notes Treatment Clinical Notes Section Notes 05/12/2024 Liver lesion (ICD-10 - K76.9) Liver disease - resources material was printed. Please obtain the laboratory testing and MRI imaging we discussed today while you are in [facility]. We discussed hepatic cirrhosis today. [...] Name:Joe estrada , 05/05/2025 08:10:00 AM, [address] , [place], [place], [id number], Insurance Providers Payer Name Payer Address Payer Phone Subscriber Number Group Number Insured Name Patient Relationship to Insured Coverage Start Date Coverage End Date [facility] [address] [place] [phone] [id number] Alexia Agosto Self - patient is the insured MEDICAID [facility] [address] [place] [id number] Alexia Agosto Self - patient is the insured Medical (General) History Medical History History ICD Code diabetes asthma Hypertension Bladder cancer Cirrhosis, likely secondary to fatty lonnie er, compensated Surgical History Surgery Date(Month/Year) bladder cancer Radical cystectomy, ileal conduit Hospitalization History Reason Date(Month/Year)
--- OUTSIDE RECORDS SUMMARY | 2025-04-18 15:25 | XMS_ITS | Patient Health Record ---
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 Primary Care Provider Darrian Smith [phone] Allergies Allergen (clinical drug ingredient) Drug/Non Drug Allergy documented on EMR Reaction Allergy Type Onset Date Status aspirin Aspirin Unknown Drug Allergy Active Motrin Unknown Drug Allergy Active Results Component Value Reference Range Notes Creatinine GFR POC Reviewed date:06/13/2024 05:47:07 AM Interpretation: Performing Lab:[facility], [address] [place] [phone] Notes/Report: [id number] 0.78 >60 0915 HO.POHJ Creatinine POC 0.8 0.5-1.4 mg/dL GFR POC > 60 Chronic Kidney Disease: Estimated GFR < 60 mL/min/1.73m2 Severe Kidney Disease: Estimated GFR < 15 mL/min/1.73m2 CT urogram Reviewed date:08/01/2024 02:53:04 PM Interpretation: Performing Lab: Notes/Report: [address] [address] [address] Scan Report Signed Patient: Alec Agosto MR#: [id number] : 1950 Acct:[id number] Age/Sex: 74 / M ADM Date: 05/16/24 Loc: HO.CT Attending Dr: Mauro Narayan MD Ordering Physician: Mauro Narayan MD Date of Service: 05/16/24 Procedure(s): CT urogram Accession Number(s): [id number] cc: Mauro Narayan MD; Darrian Ziegler MD [...] by: Jumana Stevens MD 06/22/2024 08:19 PM [facility] Dictated By: Jumana Stevens MD Signed By: <Electronically signed by Jumana Stevens MD in OV> 06/22/242018 DD/ 3 TD/TT: 05/16/24939 Cutter And Presser: ROMAN [address] [address] [address] Scan Report Signed Patient: Alec Agosto MR#: [id number] : 1950 Acct:[id number] Age/Sex: 74 / M ADM Date: 05/16/24 Loc: HO.CT Attending Dr: Emiliana Blankenship MD Ordering Physician: Mauro Narayan MD Date of Service: 05/16/24 Procedure(s): CT urogram Accession Number(s): [id number] cc: Mauro Narayan MD; Darrian Ziegler MD [...] by: Jumana Stevens MD 06/22/2024 08:19 PM [facility] Dictated By: Jumana Stevens MD Signed By: <Electronically signed by Jumana Stevens MD in OV> 06/22/242018 DD/ 3 TD/TT: 05/16/24939 Cutter And Presser: ROMAN Complete Blood Count Auto Di ff Reviewed date:01/27/2025 01:46:19 PM Interpretation: Performing Lab:[facility], [address] [place] [address] Notes/Report: White Blood Count 7.4 4.8-10.8 X10*3/uL [...] 0.000 0.0-0.012 X10*3/uL C ORRECTED REPORT Comprehensive [place]. Panel Fa st Reviewed date:01/27/2025 01:46:19 PM Interpretation: Performing Lab:[facility], [address] [place] [phone] Notes/Report: Sodium 138 135-145 mmol/L Potassium 4.2 [...] Panel Reviewed date:01/27/2025 01:46:19 PM Interpretation: Performing Lab:[facility], [address] [place] [phone] Notes/Report: Triglycerides 95 <150 mg/dL Desirable Triglyceride: [...] Antigen Reviewed date:01/27/2025 01:46:19 PM Interpretation: Performing Lab:[facility], [address] [place] [phone] Notes/Report: Prostate Specific Antigen < 0.10 <0.05-4.0 ng/mL PSA methodology: Rodriguez Alinity i Chemiluminescent Microparticle Immunoassay (CMIA) SLIDE REVIEW Reviewed date:01/27/2025 01:46:19 PM Interpretation: Performing Lab:[facility], [address] [place] [phone] Notes/Report: SLIDE REVIEW VERIFIED Complete Blood Count Auto Di ff Reviewed date:01/27/2025 01:46:19 PM Interpretation: Performing Lab:[facility], [address] [place] [phone] Notes/Report: White Blood Count 7.4 4.8-10.8 X10*3/uL [...] Auto 0.000 0.0-0.012 X10*3/uL C ORRECTED REPORT Alpha Fetoprotein (Not yet r eviewed by provider) Interpretation: Performing Lab:[facility], [address] [place] [phone] Notes/Report: Alpha Fetoprotein 7.9 <6.1 ng/mL This test was performed using the Sylvie Jeramy chemiluminescent method. Values obtained from different assay methods cannot be used interchangeably. AFP levels, regardless of value, should not be interpreted as absolute evidence of the presence or absence of disease. THIS TEST WAS PERFORMED AT: [facility] [address] [place] [phone] TORSTEN GARG MD Complete Blood Count Auto Di ff Reviewed date:04/17/2025 09:18:18 AM Interpretation: Performing Lab:[facility], [address] [place] [phone] Notes/Report: White Blood Count 5.9 4.8-10.8 X10*3/uL [...] NRBC Abs Auto 0.000 0.0-0.012 X10*3/uL Comprehensive [place]. Panel Fa st Reviewed date:04/17/2025 09:18:18 AM Interpretation: Performing Lab:[facility], [address] [place] [phone] Notes/Report: Sodium 137 135-145 mmol/L Potassium 4.5 [...] Ferritin Reviewed date:04/17/2025 09:18:18 AM Interpretation: Performing Lab:[facility], [address] [place] [phone] Notes/Report: Ferritin 911 20-250 ng/mL Lipid Panel Reviewed date:04/17/2025 09:18:18 AM Interpretation: Performing Lab:[facility], [address] [place] [phone] Notes/Report: Triglycerides 104 <150 mg/dL Desirable Triglyceride: [...] Antigen Reviewed date:04/17/2025 09:18:18 AM Interpretation: Performing Lab:[facility], [address] [place] [phone] Notes/Report: Prostate Specific Antigen < 0.10 <0.05-4.0 ng/mL PSA methodology: Rodriguez Alibradty i Chemiluminescent Microparticle Immunoassay (CMIA) Folate Reviewed date:04/17/2025 09:18:18 AM Interpretation: Performing Lab:[facility], [address] [place] [address] Notes/Report: Folate 16.3 > or = 4.0 ng/mL Reference Values: > or = 4.0 ng/mL < 4.0 ng/mL suggests folate deficiency Methotrexate, aminopterin and folinic acid (leucovorin) are chemotherapeutic agents whose molecular structures are similar to folate; therefore, the Audiometrist folate assay cannot be used for patients [...] Status W/U Status Risk Notes Problem Asthma (098723909) Asthma (J45.909) Active confirmed He repo rts no difficulty with breathing since his last visit. He tolerated the hot weather of the summer without difficulty. Problem Anemia (517635004) Anemia (D64.9) Active confirmed The hemat ocrit this month is 31.9 with a mean cell volume of 100.9. This value will be observed. It is stable. Problem Diabetes mellitus (20467378) Diabetes mellitus (E11.9) Active confirmed His diabete s has been well controlled. No change in his medications was necessary today. Problem 509494591 Mixed hyperlipidemia (E78.2) Active confirmed Is currently stable and no change in his treatment is needed. Problem Hypertension (06920743) HTN (hypertension) (I10) Active confirmed His blood pressure is currently stable at 139/62 and no change in his regimen is needed today. Problem Hypothyroid (94433662) Hypothyroid (E03.9) Active confirmed He remains euthyroid. No change in his medication was needed. Problem 950662595 Urothelial carcinoma (C68.9) Active confirmed There is no sign of recurrent disease at this time. The ileostomy is functioning well. Problem 5206673304608 Benign prostatic hyperplasia with lower urinary tract symptoms (N40.1) Active confirmed He rises from sleep once or twice a night to urinate depending upon fluid intake. We reviewed lifestyle modification she could make to reduce nocturia. Problem High cholesterol (96467436) High cholesterol (E78.00) Active confirmed Problem 961986968 Ileostomy in place (Z93.2) Active confirmed The urine in the bag appeared to be completely normal. He has had no bleeding. The ostomy is functioning well. Problem 43475735 Cirrhosis of liver without ascites, unspecified hepatic [...] An alpha-fetoprote in will be obtained. Problem 774223538 History of tuberculosis (Z86.11) Active confirmed Vital Signs Heart Rate 70 /min 01/31/2025 Temperature 97.3 degrees Fahrenheit 01/31/2025 Blood pressure diastolic 62 mm Hg 01/31/2025 Height 61 in 01/31/2025 Blood pressure systolic 139 mm Hg 01/31/2025 Weight 130 lbs 01/31/2025 BMI 24.56 kg/m2 01/31/2025 Encounters Encounter Location Date Provider Diagnosis Darrian Ziegler III, MD [address] [place] [address] [address] [place] [address] 05/02/2024 Darrian Ziegler HTN (hypertension) I 10 ; Anemia D64.9 ; Mixed hyperlipidemia E78.2 ; Benign prostatic hyperplasia with lower urinary tract symptoms N40.1 ; Diabetes mellitus E11.9 ; Urothelial carcinoma C68.9 and Cirrhosis of liver without ascites, unspecified hepatic cirrhosis type K74.60 Darrian Ziegler III, MD [address] [place] [address] [address] [place] [address] 01/31/2025 Darrian Ziegler Urothelial carcinoma C68.9 ; [...] the liver has been done by his swage toolsetter, Dr. Burnett. It showed thickening of the [...] the liver has been done by his swage toolsetter, Dr. Burnett. It showed thickening of the [...] Panel 12/29/2023 Lipid Panel 01/31/2025 Folate 01/31/2025 Alpha Fetoprotein 04/14/2025 Microalbumin, Random 05/19/2023 Hemoglobin A1c 12/29/2023 Next Appt Details Provider Name:Darrian Ziegler, 05/04/2025 10:30:00 AM, [address] [place] [address] [address] BO[address], [place], [phone], Insurance Providers Payer Name Payer Address Payer Phone Subscriber Number Group Number Insured Name Patient Relationship to Insured Coverage Start Date Coverage End Date [facility] [address] [place] [phone] [id number] Alexia Agosto Self - patient is the insured MEDICAID [facility] [address] [place], [place] [id number] [phone] [id number] Alexia Agosto Self - patient is the insured MEDICARE [employer] [address] [place] [address] [phone] [id number] Alexia Agosto Self - patient is the [...] right eye 2019 Cataract surgery, left eye 2017 Radical cysectomy Appendectomy, ileal co nduit 02/2020 Hospitalization History Reason Date(Month/Year) Bladder CA 02/2020
== END 2025-04-18 14:18 | disposition home or self-care (01) ==
LOC: HO.HUSH 13:07
PROVIDERS: Visit Provider Urology
DX: Z13.9 Encounter for screening, unspecified (principal)

== ENCOUNTER → 2025-04-18 13:07 | Outpatient (BNVA) | payer OTHER, SELFPAY | PROVIDERS: Visit Provider Urology | DX: C67.9 Malignant neoplasm of bladder, unspecified (principal); N99.528 Other complication of incontinent external stoma of urinary tract | CPT/HCPCS: 81003; 99212 ==

== ENCOUNTER 2025-04-28 14:47 | Emergency (ER) | payer OTHER, SELFPAY ==
[2025-04-28 14:58] VITALS: BP 157/69; PULSE 74; RESP 16; TEMP 36.1; O2SAT 100; BMI 23.8
--- NOTE | 2025-04-28 14:59 | ED.GENADULT ---
HPI - General Adult General Chief complaint: General Medical Stated complaint: Bag is Leaking Time Seen by Provider: 04/28/25 17:30 Source: patient Limitations: no limitations History of Present Illness ED Provider: Dian Judge PA-C HPI narrative: 75-year-old male with a history of history of bladder cancer, status post cystectomy and ileal conduit in 2020 in [facility], presents with leakage from his urostomy site. Associated surrounding tissue irritation. Denies fever, redness or pain. The site is functional. His symptoms have resolved, there was no further leakage. Related Data Home Medications ?Medication ?Instructions ?Recorded ?Confirmed blood sugar diagnostic (FreeStyle #10 ea 04/18/21 01/05/24 Lite Strips) montelukast 10 mg tablet 10 mg PO DAILY 04/18/21 03/21/25 lancets 28 gauge (FreeStyle #100 ea 06/24/21 01/05/24 Lancets) folic acid 1 mg tablet 1 mg PO DAILY 12/10/21 03/21/25 albuterol sulfate 90 mcg/actuation 2 puff PO QID PRN Shortness Of 02/08/22 03/21/25 aerosol inhaler Breath atorvastatin 20 mg tablet 20 mg PO BEDTIME 03/01/25 03/21/25 ferrous sulfate 325 mg (65 mg 325 mg PO DAILY 03/01/25 03/21/25 iron) tablet (iron) metformin 500 mg tablet 500 mg PO BID 03/01/25 03/21/25 sitagliptin phosphate 50 mg tablet 50 mg PO DAILY 03/01/25 03/21/25 (Januvia) telmisartan 20 mg tablet 20 mg PO DAILY 03/01/25 03/21/25 bisacodyl 5 mg tablet,delayed 5 mg PO DAILY constipation 03/21/25 03/21/25 release (Dulcolax (bisacodyl)) fluticasone 232 mcg-salmeterol 14 1 inh inhalation BID 03/21/25 03/21/25 mcg/actuation breath activated powdr Previous Rx's ?Medication ?Instructions ?Recorded docusate sodium 100 mg capsule 100 mg PO DAILY PRN constipation 03/04/25 (Colace) #30 caps amoxicillin 500 mg-potassium 1 tab PO Q12H 10 days #20 tabs 03/28/25 clavulanate 125 mg tablet levofloxacin 750 mg tablet 750 mg PO Q48H 10 days #5 tabs 03/28/25 ostomy supplies-skin barrier 6 X #30 wafers 04/04/25 6 wafer ostomy supplies (MicroHesive Stoma #60 grams 04/26/25 Paste) ostomy supplies-skin barrier 8 X #30 wafers 04/26/25 8 wafer urinary bag 10 (Assura Urostomy #10 ea 04/28/25 Pouch) Allergies Allergy/AdvReac Type Severity Reaction Status Date / Time aspirin Allergy Unknown Verified 04/28/25 15:00 Beta-Blockers AdvReac Unknown Verified 04/28/25 15:00 (Beta-Adrenergic Bloc ibuprofen AdvReac Unknown Verified 04/28/25 15:00 Review of Systems Review of Systems: Yes all other systems are reviewed and are negative Constitutional: Constitutional: Denies fatigue and Denies fever(s) Cardiovascular: Cardiovascular: Denies chest pain and Denies dyspnea Respiratory: Respiratory: Denies dyspnea Gastrointestinal: Gastrointestinal: Denies abdominal pain, Denies nausea and Denies vomiting Musculoskeletal: Musculoskeletal: Denies back pain Endocrine: Endocrine: Denies fatigue [facility] Past Medical History Attestation statement: The following information was validated with the patient. Medical History (Updated 04/28/25 @ 18:38 by BALWINDER Julio) Complication of urostomy History of bladder cancer Abdominal distention Cirrhosis of liver HTN (hypertension) Acute hyponatremia Hydronephrosis Bladder cancer Asthma Diabetes Bladder cancer Incomplete emptying of bladder due to benign prostatic hyperplasia Complicated urinary tract infection Surgical History History of surgery History of ileal conduit Social History Social History Household Members: Family Housing: House Are you a primary careers counsellor to a significant other at home: No Do you presently have visiting nurse or other home services: Yes Alcohol intake: never Comment: bedside Patient Tobacco Use Status: Never used Tobacco Advance Directives: No Advance Directives Information Provided: No Advance Directives Date on File: 03/12/25 service: No Current occupational status: retired Physical Exam ED Vital Signs: Vital Signs - 24 hr 04/28/25 14:58 Temperature 97.0 F Pulse Rate 74 Respiratory Rate 16 Blood Pressure 157/69 H Pulse Oximetry 100 Oxygen Delivery Method Room Air BMI result Body Mass Index 23.8 Const Other: Alert well-appearing Orientation/consciousness: patient oriented x3 Resp Effort & Inspection: normal respiratory effort Cardio Other: Normal peripheral perfusion GI Other: Abdomen is soft, nondistended nontender no guarding, the urostomy device is in place there was no leakage. The skin surrounding is not erythematous it is not swollen it is not indurated there is no contact dermatitis, no rash at all Skin Other: Warm dry no rash Neuro General: patient oriented x3, gait normal, no focal motor deficits and CN's II-XI intact bilaterally Psych Other: Cooperative Course Course Course Narrative: RME, this is a rapid medical exam performed by Moises Figueroa please refer to primary provider for complete H&P- 75-year-old male history of bladder cancer, status post cystectomy and ileal conduit in 2020 her [facility] presents for evaluation of leaking around his urostomy bag. Plan for labs and urinalysis. Medical Decision Making Medical Decision Making [facility] Narrative: 75-year-old male with a history of history of bladder cancer, status post cystectomy and ileal conduit in 2020 in [facility], presents with leakage from his urostomy site. Associated surrounding tissue irritation. Denies fever, redness or pain. The site is functional. His symptoms have resolved, there was no further leakage. Problem: Urostomy History: Per patient I have considered the following differential diagnoses: Dysfunctional urostomy, inappropriate application of device, cellulitis, chafed skin, contact dermatitis, tinea Plan: The patient has no symptoms, the bag septal aching, it likely was not adhered appropriately. I gave him additional supplies, he states his doctor sent the wrong bag to the pharmacy. He knows he needs to contact them for them to correct the durable medical supply prescription. He states he is having itchiness surrounding the adhesive site, he has no objective rash, I am advising he use [id number] hydrocortisone. Screening labs were obtained from triage, there was no indication for imaging I have independently reviewed the following tests: Labs: No leukocytosis, stable anemia, no electrolyte abnormality Differential Diagnosis Differential Diagnoses: The differential diagnosis associated with the presentation includes See medical decision-making Admission/Observation Consideration of admission/observation: Escalation of care including admission/observation considered Not applicable Lab Data [facility] Lab Attestation statement: I reviewed the patient's lab results. 04/28/25 15:21 04/28/25 15:21 Labs: Lab Results 04/28/25 Range/Units 15:21 WBC 7.1 (4.8-10.8) X10*3/uL RBC 2.82 L (4.60-5.80) X10*6/uL Hgb 9.2 L (14.0-18.0) g/dl Hct 26.7 L (42.0-52.0) % MCV 94.7 (80.0-98.0) fL MCH 32.6 (27.0-33.0) pg MCHC 34.5 (31.0-36.0) g/dl RDW 17.5 H (11.0-16.0) % Plt Count 124 L (160-400) X10*3/uL MPV 11.1 (9.4-12.4) fL Immature Gran % (Auto) 0.4 (0.0-0.4) % Neut % (Auto) 53.7 (45-73) % Lymph % (Auto) 20.1 (20-40) % [place] % (Auto) 8.5 (2-11) % Eos % (Auto) 16.3 H (0-4) % Baso % (Auto) 1.0 (0-2) % Lymph # (Auto) 1.4 (1.2-4.9) X10*3/uL [place] # (Auto) 0.6 (0.1-1.2) X10*3/uL Eos # (Auto) 1.2 H (0.0-0.4) X10*3/uL Baso # (Auto) 0.1 (0.0-0.2) X10*3/uL Abs Immat Gran (auto) 0.03 (0.00-0.03) X10*3/uL Absolute Neuts (auto) 3.8 (2.0-8.3) x10*3/uL Absolute Nucleated RBC 0.000 (0.0-0.012) X10*3/uL Nucleated RBC % (auto) 0.0 (0.0-0.2) /100WBC Sodium 136 (135-145) mmol/L Potassium 4.4 (3.3-5.1) mmol/L Chloride 112 H (96-108) mmol/L Carbon Dioxide 20 L (22-29) mmol/L Anion Gap 8 L (12-20) BUN 22 H (9-16) mg/dL Creatinine 1.29 (0.5-1.4) mg/dL Estim Creat Clear Calc 37.0 Estimated GFR 54 Random Glucose 182 H (60-115) mg/dL Calcium 8.5 (8.4-10.2) mg/dL Total Bilirubin 0.6 (0.0-1.0) mg/dL AST 67 H (5-37) U/L ALT 41 H (0-40) U/L Alkaline Phosphatase 359 H (39-117) U/L Total Protein 7.3 (6.5-8.0) g/dL Albumin 3.4 L (3.5-5.0) g/dL Lipase 115 H (8-78) U/L Discharge Plan Discharge Clinical Impression: Complication of urostomy Patient Disposition: Home, Self-Care Additional Instructions: You were given additional supplies for your urostomy. You need to contact the specialist who orders the supplies for you, so they can correct your prescription. For the surrounding itchiness of your skin, you can use [id number] hydrocortisone cream, you can purchase this at any pharmacy or grocery store. Prescriptions: No Action (DME) MicroHesive Stoma Paste Paste See Rx Instructions .Route Qty: 60 5RF Rx Instructions: Securi-T stoma paste (DME) ostomy supplies-skin barrier 8 X 8 wafer See Rx Instructions .Route Qty: 30 6RF Rx Instructions: As directed, change every 3 days . (DME) Assura Urostomy Pouch 10 misc See Rx Instructions .Route Qty: 10 4RF Rx Instructions: Item number [id number] albuterol sulfate 90 mcg/actuation HFA aerosol inhaler 2 puff PO QID PRN (Reason: Shortness Of Breath) fluticasone propion-salmeterol 232-14 mcg/actuation aerosol powdr breath activated 1 inh INHALATION BID bisacodyl [Dulcolax (bisacodyl)] 5 mg tablet,delayed release (DR/EC) 5 mg PO DAILY levofloxacin 750 mg Tablet 750 mg PO Q48H 10 Days Qty: 5 0RF amoxicillin-pot clavulanate 500-125 mg Tablet 1 tab PO Q12H 10 Days Qty: 20 0RF metformin 500 mg tablet 500 mg PO BID atorvastatin 20 mg tablet 20 mg PO BEDTIME telmisartan 20 mg tablet 20 mg PO DAILY Januvia 50 mg tablet 50 mg PO DAILY ferrous sulfate [iron] 325 mg (65 mg iron) Tablet 325 mg PO DAILY docusate sodium [Colace] 100 mg capsule 100 mg PO DAILY PRN (Reason: constipation) Qty: 30 0RF montelukast 10 mg tablet 10 mg PO DAILY (DME) FreeStyle Lite Strips Strip See Rx Instructions Not Applicable DAILY Qty: 10 Rx Instructions: As directed (DME) lancets [FreeStyle Lancets] 28 gauge misc See Rx Instructions topical BID Qty: 100 Rx Instructions: As directed folic acid 1 mg tablet 1 mg PO DAILY (DME) ostomy supplies-skin barrier 6 X 6 wafer See Rx Instructions .Route Qty: 30 1RF Rx Instructions: Nasreen [facility] [id number] - change every 3 days Print Language: French
[2025-04-28 15:24] LABS: MANUAL DIFF FLAG NO
[2025-04-28 15:26] LABS: Hematocrit 26.7 % (42.0-52.0); Hemoglobin 9.2 g/dl (14.0-18.0); Imm Gran Abs Auto 0.03 X10*3/uL (0.00-0.03); Imm Gran Pct Auto 0.4 % (0.0-0.4); Lymphocytes Absolute Auto 1.4 X10*3/uL (1.2-4.9); Mean Corpuscular HGB Conc 34.5 g/dl (31.0-36.0); Mean Corpuscular Hemoglobin 32.6 pg (27.0-33.0); Mean Corpuscular Volume 94.7 fL (80.0-98.0); NRBC Abs Auto 0.000 X10*3/uL (0.0-0.012); NRBC Pct Auto 0.0 /100WBC (0.0-0.2); Platelet Count 124 X10*3/uL (160-400); Red Blood Count 2.82 X10*6/uL (4.60-5.80); White Blood Count 7.1 X10*3/uL (4.8-10.8)
[2025-04-28 15:38] LABS: Alanine Aminotransferase 41 U/L (0-40); Albumin Level 3.4 g/dL (3.5-5.0); Alkaline Phosphatase 359 U/L (39-117); Anion Gap 8 (12-20); Aspartate Amino Transferase 67 U/L (5-37); Blood Urea Nitrogen 22 mg/dL (9-16); Calcium 8.5 mg/dL (8.4-10.2); Carbon Dioxide 20 mmol/L (22-29); Chloride 112 mmol/L (96-108); Creatinine Clr Calc Pharmacy 37.0; Estimated Glomerular Filt Rate 54; Lipase 115 U/L (8-78); Potassium 4.4 mmol/L (3.3-5.1); Sodium 136 mmol/L (135-145); Total Protein 7.3 g/dL (6.5-8.0)
[2025-04-28 18:45] VITALS: BP 157/69; PULSE 74; RESP 16; TEMP 36.1; O2SAT 100
== END 2025-04-28 18:53 | disposition home or self-care (01) ==
PROVIDERS: Physician Assistant; Emergency Provider Emergency Medicine Emergency Medical Services; PCP Internal Medicine
DX: N99.528 Other complication of incontinent external stoma of urinary tract (principal); Z79.899 Other long term (current) drug therapy
CPT/HCPCS: 36415; 80053; 83690; 85025; 99282; 99283

== ENCOUNTER 2025-05-05 11:24 | Outpatient (REF) | payer OTHER, SELFPAY ==
--- OUTSIDE RECORDS SUMMARY | 2023-12-29 10:30 | XMS_ITS ---
Author Organization Darrian Ziegler III, MD Address [address] [place] [address] Care Team Providers Care Filter Tip Catcher Name Role Phone Tony PINK, [facility] Primary Care Provider Dr. Darrian Smith [...] Date Provider Diagnosis Darrian Ziegler III, MD [address] [place] [address] [place] [address] 12/29/2023 Darrian Ziegler HTN (hypertension) I 10 [...] Provider Name:Darrian Ziegler , 12/11/2025 02:00:00 PM, [address] [place] [address] [address] [facility] [place] [place], [address], Progress Notes * Zehra AGOSTO KDOB: (73 yo M)Acc No.[id number]:12/29/2023 Progress Notes Patient: Candelario Angelguykamala Sheehan Provider: Yahaira Ziegler MD :1950 A ge:73 Y S ex:Male Date:12/29/2023 Address:[address] [place], [place] [phone] Pcp:Hilary Jimenez MD Subjective: * Chief Complaints: [...] medical issues. Her into the emergency room [facility] December 22, 2023 for a urinary [...] ggressive non-smoker Quentin olivares was born in [facility] and now lives in [place], [place]. He is and has several children. [...] 30 L >40 - mg/dL L ab:Comprehensive [place]. Panel Fast (Order Date - 12/18/2023) (Collection [...] Range?Hemoglobin A1c %6.2H<6.0 - % ?Estimated Average Frcnciq191- mg/dL ???Lab:Microalbumin, Random (Order Date - 12/18/2023) (Collection Date - 12/18/2023)?ValueReference Range?Creatinine Urine75.67- mg/dL ?Microalbumin Kbtdh524.0- mg/L?Microalbum Creatinine Ratio Ur199.5 H<30 - ug/mg [...] 12/29/2023 Generated for Ana cabrera/Linden/Reneeitting on: 0 05/05/2025 01:15 PM EDT History and Physical Notes * [...]
--- OUTSIDE RECORDS SUMMARY | 2024-05-02 11:30 | XMS_ITS ---
Author Organization Darrian Ziegler III, MD Address [address] [place] [address] Care Team Providers Care Home Hospice Aide Name Role Phone Tony PINK, [facility] Primary Care Provider Dr. Darrian Smith III Unavailable [phone] Allergies Allergen (clinical drug ingredient) Drug/Non Drug [...] Date Provider Diagnosis Darrian Ziegler III, MD [address] [place] [address] [place], KAREN [address] 05/02/2024 Darrian Ziegler HTN (hypertension) I 10 [...] the liver has been done by his practice performance manager, Dr. Burnett. It showed thickening of [...] Provider Name:Darrian Ziegler , 12/11/2025 02:00:00 PM, [address] [place] [address] [address], [place], [address], Progress Notes * Candelario AGOSTOchandu KDOB: (74 yo M)Acc No.[id number]:05/02/2024 Progress Notes Patient: Zehra GALICIA Provider: Yahaira Ziegler MD :1950 A ge:74 Y S ex:Male Date:05/02/2024 Address:[address] [place], [place] [phone] Pcp:Hilary Jimenez MD Subjective: * Chief Complaints: [...] born in [place] and now lives in [place], [place]. He is and has several children. [...] Temp:97.2, Wt-k.06. * P ast Orders: Lab:[facility] [place]. Dereke l Fast * Collection Date 04/15/2024 [...] the liver has been done by his practice performance manager, Dr. Burnett. It showed thickening of [...] Ziegler MD Date: 05/02/2024 Generated for Printi ng/Faxing/eTransmitting on: 05/05/2025 01:14 PM EDT History and Physical Notes * HPI (History of Present Illness) Category Sub-Category Detail Notes COVID-19 Screening Questions Have you had any new onset fever, chills, cough, congestion, sore throat, shortness of breath, muscle aches?: No Have you been exposed to the virus withi n the last 10 days?: No Have you travelled internationally in [facility] last 10 days?: No Have you [...]
--- OUTSIDE RECORDS SUMMARY | 2024-12-26 05:20 | XMS_ITS ---
Author Organization [facility] Address 10 [facility] [address] [place] [address] Care Team Providers Care Central Sterile Supply Technician Name Role Phone Hilary Jimenez Primary Care Provider Unavailab Joe Hardy Jr [phone] REASON FOR VISIT cirrhosis Encounters Encounter Location Date Provider Diagnosis [facility] [address] [facility] [address] [place] [address] 12/26/2024 Joe Burnett Jr Plan Of Treatment Next Appt Details Provider Name:Joe estrada Jr, 05/12/2025 11:40:00 AM, [address] [place] [address] , [place], [place], [phone], Progress Notes * AGOSTO, Zehra KDOB: (75 yo M)Acc No.[id number]:12/26/2024 Progress Notes Patient: Candelario GALICIAchandu Sissy Provider: Symone Burnett MD :1950 A ge:74 Y S ex:Male Date:12/26/2024 Address:[address] [place] [address] Pcp:Hilary Jimenez Subjective: * Chief Complaints: * [...] 12/26/2024 Generated for Ana cabrera/Linden/Nigel on: 0 05/05/2025 01:15 PM EDT
--- OUTSIDE RECORDS SUMMARY | 2024-12-27 13:00 | XMS_ITS ---
Author Organization Darrian Ziegler III, MD Address [address] [place] [address] Care Team Providers Care Cornetist Name Role Phone Tony PINK, Hilary Primary Care Provider Dr. Darrian Smith III REASON FOR VISIT Followup Encounters Encounter Location Date Provider Diagnosis Darrian Ziegler III, MD [address] [place] [address] [address] [place] [address] 12/27/2024 Darrian Ziegler Plan Of Treatment Next Appt Details Provider Name:Darrian Ziegler , 12/11/2025 02:00:00 PM, [address] [place] [address] [address], [place], [address], Progress Notes * Zehra AGOSTO KDOB: (75 yo M)Acc No.[id number]:12/27/2024 Progress Notes Patient: Zehra GALICIA Provider: Yahaira Ziegler MD :1950 A ge:74 Y S ex:Male Date:12/27/2024 Phone: Address:[address] [place] [address] Pcp:Hilary Jimenez MD Subjective: * Chief Complaints: [...] MD Date: 0 12/27/2024 Generated for Ana cabrera/Lniden/Nigel on: 0 05/05/2025 01:14 PM EDT
--- OUTSIDE RECORDS SUMMARY | 2025-01-31 06:15 | XMS_ITS ---
Author Organization Darrian Ziegler III, MD Address [address] [place] [address] [place] [address] Care Team Providers Care Spline Rolling Machine Job Setter Name Role Phone Tony PINK, [facility] Primary Care Provider Dr. Darrian Smith III [...] Provider Diagnosis Darrian Ziegler III, MD [address] [place] [address] [address] [place], KAREN [address] 01/31/2025 Darrian Ziegler Urothelial carcinoma C68.9 ; [...] the liver has been done by his prn physical therapist, Dr. Burnett. It showed thickening of the [...] Provider Name:Darrian Ziegler , 12/11/2025 02:00:00 PM, [address] [place] [address], [address], Progress Notes * Zehra AGOSTO KDOB: (74 yo M)Acc No.[id number]:01/31/2025 Progress Notes Patient: Zehra GALICIA Provider: Yahaira Ziegler MD :1950 A ge:74 Y S ex:Male Date:01/31/2025 Phone: Address:[address] [place] [phone] Pcp:Hilary Jimenez MD Subjective: * Chief Complaints: [...] ggressive non-smoker Quentin olivares was born in [facility] and now lives in [place], [place]. He is and has several children. [...] the liver has been done by his prn physical therapist, Dr. Burnett. It showed thickening of the [...] 0 01/31/2025 Generated for Ana cabrera/Linden/Reneeitting on: 0 05/05/2025 [...]
--- OUTSIDE RECORDS SUMMARY | 2025-03-07 07:00 | XMS_ITS ---
Author Organization [facility] Address [address] [place] [address] Care Team Providers Care Tanker Driver Name Role Phone Hilary Jimenez Primary Care Provider Unavailab Joe Hardy Jr [phone] REASON FOR VISIT abn findings in stool Encounters Encounter Location Date Provider Diagnosis [facility] [place] [address] [place] [id number] 03/07/2025 Joe Burnett Jr Plan Of Treatment Next Appt Details Provider Name:Joe estrada Jr, 05/12/2025 11:40:00 AM, [address] [place] [address], [phone], Progress Notes * Zehra AGOSTO KDOB: (75 yo M)Acc No.[id number]:03/07/2025 EGD and COL/MAC Patient: Vance MCCLOUDZehra Provider: Symone Burnett MD :1950 A ge:74 Y S ex:Male Date:03/07/2025 Address:[address] [place] [phone] Pcp:Hilary Jimenez Subjective: * Chief Complaints: * [...] 03/07/2025 Generated for Ana cabrera/Linden/Nigel on: 0 05/05/2025 01:14 PM EDT
--- OUTSIDE RECORDS SUMMARY | 2025-04-04 07:10 | XMS_ITS ---
Author Organization [facility] Address [address] [place] [address] Care Team Providers Care Beauty Parlor Cleaner Name Role Phone Hilary Jimenez Primary Care Provider Unavailab Joe Hardy Jr REASON FOR VISIT abnormal ct scan Encounters Encounter Location Date Provider Diagnosis [facility] [place] [address] [place] [id number] 04/04/2025 Joe Burnett Jr Plan Of Treatment Next Appt Details Provider Name:Joe estrada Jr, 05/12/2025 11:40:00 AM, [address] [place] [address], [phone], Progress Notes * Zehra AGOSTO KDOB: (75 yo M)Acc No.[id number]:04/04/2025 EGD and COL/MAC Patient: Vance MCCLOUD Zehra Sheehan Provider: Symone Burnett MD :1950 A ge:75 Y S ex:Male Date:04/04/2025 Address:[address] [place] [phone] Pcp:Hilary Jimenez Subjective: * Chief Complaints: * [...] 0 04/04/2025 Generated for Ana cabrera/Linden/Nigel on: 05/05/2025 01:14 PM EDT
--- OUTSIDE RECORDS SUMMARY | 2025-05-04 06:30 | XMS_ITS ---
Author Organization Darrian Ziegler III, MD Address [address] [place] [address] Care Team Providers Care Stripper Latex Name Role Phone Tony PINK, [facility] Primary Care Provider Dr. Darrian [...] Provider Diagnosis Darrian Ziegler III, MD [address] [place] [address] [place] [address] 05/04/2025 Darrian Ziegler HTN (hypertension) I 10 [...] the liver has been done by his production line assembler, Dr. Burnett. It showed thickening of the [...] Name:Darrian Ziegler , 12/11/2025 02:00:00 PM, [address] [place] [address], [address], Progress Notes * Zehra AGOSTO KDOB: (75 yo M)Acc No.[id number]:05/04/2025 Progress Notes Patient: Kana GALICIArichardra Sheehan Provider: Yahaira Ziegler MD :1950 A ge:75 Y S ex:Male Date:05/04/2025 Phone: Address:[address] [place] [phone] Pcp:Hilary Jimenez MD Subjective: * Chief Complaints: [...] next week with Dr. Darrian Rowe at [facility]. On examination today, he still has a [...] June 2025 to spend the winter in [facility].. He says he will [...] the liver has been done by his production line assembler, Dr. Burnett. It showed thickening of the [...] 0 05/04/2025 Generated for Ana cabrera/Linden/eTransmitting on: 05/05/2025 01:14 PM EDT History and [...]
--- NOTE | ~2025-05-05 | CT_ITS ---
EXAMINATION: CT CHEST WITHOUT CONTRAST CLINICAL INFORMATION: R 91.8 COMPARISON: March 01, 2025 reported a 4.8 x 4.3 x 4.2 cm lobulated mass, left lower lung lobe. TECHNIQUE: Multidetector volumetric CT imaging of the chest was done. Axial MIP volume rendering provided. Sagittal and coronal reformatted images were obtained. This CT examination was performed using dose optimization techniques as appropriate, variously including the following: *Automated exposure control *Adjustment of mA and/or kV according to patient size (this includes techniques or standardized protocols for targeted exams where dose is matched to indication/reason for exam; i.e. extremities or head) *Use of iterative reconstruction technique DLP: 105 mGy centimeter. FINDINGS: SALES DEVELOPMENT MANAGER: Good inspiration. Normal size of the heart silhouette. Patient's large body habitus. Both upper extremities at the size of the head. S-shaped curvature of the thoracolumbar spine. LUNGS: There is a saccular and linear attenuation abnormality in the left lower lung lobe. There are few 7-year-old patchy pulmonary groundglass in the periphery of the lungs. No gross honeycombing. MEDIASTINUM: Nonspecific, prominent, 13 mm mediastinal lymph nodes, the most dominant in the right precarinal. Calcified plaques in the thoracic aortic arch and its main branches without gross aneurysm. Calcified plaques in the coronary arteries and the aortic valve. No pericardial effusion. No pneumomediastinum. No hemopericardium. The heart is not enlarged. The thyroid gland is not enlarged. CORONARY ARTERY CALCIFICATION: Calcified plaques. PLEURA: No pleural effusion. No pneumothorax. No calcified pleural plaques. AXILLA: No lymphadenopathy. UPPER ABDOMEN: Nodular liver surface and likely enlarged liver. Abnormal/atrophic right kidney. Probable cholelithiasis. No gross ascites in the upper abdomen. Abundant stool. No nodular lesions in the adrenal glands. Bilateral prominent breast tissue. OSSEOUS STRUCTURES: Multilevel marginal osteophyte formation and syndesmophyte formation throughout the axial skeleton. No acute fracture or listhesis. No lytic or blastic lesions. CT/CT chest wo IV con IMPRESSION: Resolved pneumonia, left lower lung lobe. Sequela of the subsegmental atelectasis/scarring and saccular bronchiectasis, left lung base. Coronary artery disease and atherosclerosis disease. Calcified aortic valve. Cirrhosis without gross ascites. Fleischner guidelines were followed. Electronically signed by: Farhad Johnson MD 05/05/2025 12:11 PM EDT RP
--- OUTSIDE RECORDS SUMMARY | 2025-05-05 13:14 | XMS_ITS | Patient Health Record ---
Author Organization [facility] Address [address] [facility] [address] [place] [address] Care Team Providers Care Rn Social Work Name Role Phone Hilary Boss Primary Care Provider Unavailab Joe Hardy Jr Unavailable [phone] Allergies Allergen (clinical drug ingredient) Drug/Non Drug [...] Provider Joe Echavarria Jr Referred Address [address] [facility],[address],[place], [place],[address], Referred Provider Specialty Gastroentero logy General Notes Brooklyn Barkley 2024 10:14:44 AM > REQUESTED HERACLIO REFEFFAL FROM DR BOSS'S OFFICE FOR VISIT WITH DR ECHAVARRIA ON 02-15-25, Brooklyn Barkley 02/15/2025 11:39:50 AM >no referral required since patient is in the same [place] of care Referral Priority Routine Medications Medication [...] Risk Notes Problem Oesophageal varices without bleeding (18041262) Secondary esophageal varices without bleeding (I85.10) Active confirmed Problem Portal hypertension (24675917) Portal hypertension (K76.6) Active confirmed Problem 616294091 Liver mass (R16.0) Active confirmed Problem 965835349 Liver lesion (K76.9) Active confirmed Problem 25174379675103426 Abnormal CT scan, liver (R93.2) Active confirmed Problem 87034341 Cirrhosis of liver without ascites, unspecified hepatic cirrhosis type (K74.60) Active confirmed Vital Signs Temperature 97.7 degrees Fahrenheit 02/15/2025 Blood pressure diastolic 01 mm Hg 02/15/2025 Height 62 in 02/15/2025 Blood pressure systolic 001 mm Hg 02/15/2025 Weight 120 lbs 02/15/2025 BMI 21.95 kg/m2 02/15/2025 Encounters Encounter Location Date Provider Diagnosis [facility] [address] [place] [address] 05/12/2024 Joe Echavarria Jr Liver lesion K76.9 and Cirrhosis of liver without ascites, unspecified hepatic cirrhosis type K74.60 [facility] [address] [place] [address] 02/15/2025 Joe Echavarria Jr Abnormal findings in stool R19.5 [facility] [address] [place], [place] [address] 12/26/2024 Joemichael Echavarria Jr [facility] [address] [place], [place] [address] 02/28/2025 Joemichael Echavarria Jr [facility] [address] [place], [place] [address] 02/28/2025 Joe Lex Morrow [facility] [address] [place], [place] [address] 03/30/2025 Joe Lexinessa Morrow [facility] [address] [place], [place] [address] 04/24/2025 Joe Lexinessa Morrow [facility] [address] [place], [place] [address] 05/04/2025 Joe Echavarria Jr Assessments Encounter Date Diagnosis (ICD Code) Assessment Notes Treatment Notes Treatment Clinical Notes Section Notes 05/12/2024 Liver lesion (ICD-10 - K76.9) Liver disease - resources material was printed. Please obtain the laboratory testing and MRI imaging we discussed today while you are in [facility]. We discussed hepatic cirrhosis today. We [...] risks and benefits and agrees to proceed. Plan Of Treatment Pending Test Test Name [...] Next Appt Details Provider Name:Joe estrada , 05/12/2025 11:40:00 AM, [address] [place] [address] , [place], [place], [phone], Insurance Providers Payer Name Payer Address Payer Phone Subscriber Number Group Number Insured Name Patient Relationship to Insured Coverage Start Date Coverage End Date [facility] [address] [place] [phone] [id number] Alexia Agosto Self - patient is the insured MEDICAID OF [facility] [address] [place] [address] [id number] Alexia Agosto Self - patient is the insured Medical (General) History Medical History History ICD Code diabetes asthma Hypertension Bladder cancer Cirrhosis, likely secondary to fatty lonnie er, compensated Surgical History Surgery Date(Month/Year) bladder cancer Radical cystectomy, ileal conduit Hospitalization History Reason Date(Month/Year)
--- OUTSIDE RECORDS SUMMARY | 2025-05-05 13:15 | XMS_ITS | Patient Health Record ---
Author Organization Darrian Ziegler III, MD Address [address] [place] [address] [place] [address] Care Team Providers Care Floriculture Professor Name Role Phone Tony PINK, [facility] Primary Care Provider Dr. Darrian Smith III Unavailable Allergies Allergen (clinical drug ingredient) Drug/Non Drug Allergy documented on EMR Reaction Allergy Type Onset Date Status aspirin Aspirin Unknown Drug Allergy Active Motrin Unknown Drug Allergy Active Results Component Value Reference Range Notes Creatinine GFR POC Reviewed date:06/13/2024 05:47:07 AM Interpretation: Performing Lab:[facility], [address] [place] [phone] Notes/Report: [id number] 0.78 >60 0915 HO.POHJ Creatinine POC 0.8 0.5-1.4 mg/dL GFR POC > 60 Chronic Kidney Disease: Estimated GFR < 60 mL/min/1.73m2 Severe Kidney Disease: Estimated GFR < 15 mL/min/1.73m2 CT urogram Reviewed date:08/01/2024 02:53:04 PM Interpretation: Performing Lab: Notes/Report: [address] [address] [address] Scan Report Signed Patient: Alec Agosto MR#: [id number] : 1950 Acct:[id number] Age/Sex: 74 / M ADM Date: 05/16/24 Loc: HO.CT Attending Dr: Mauro Narayan MD Ordering Physician: Mauro Narayan MD Date of Service: 05/16/24 Procedure(s): CT urogram Accession Number(s): [id number] cc: Mauro Narayan MD; Darrian Ziegler MD [...] by: Jumana Stevens MD 06/22/2024 08:[address] [facility] Dictated By: Jumana Stevens MD Signed By: <Electronically signed by Jumana Stevens MD in OV> 06/22/242018 DD/ 3 TD/TT: 05/16/24939 Electroplater Helper: ROMAN [address] [address] [address] Scan Report Signed Patient: Alec Agosto MR#: [id number] : 1950 Acct:[id number] Age/Sex: 74 / M ADM Date: 05/16/24 Loc: HO.CT Attending Dr: Emiliana Blankenship MD Ordering Physician: Mauro Narayan MD Date of Service: 05/16/24 Procedure(s): CT urogram Accession Number(s): [id number] cc: Mauro Narayan MD; Darrian Ziegler MD [...] by: Jumana Stevens MD 06/22/2024 08:[address] [facility] Dictated By: Jumana Stevens MD Signed By: <Electronically signed by Jumana Stevens MD in OV> 06/22/242018 DD/ 3 TD/TT: 05/16/24939 Electroplater Helper: ROMAN Complete Blood Count Auto Di ff Reviewed date:01/27/2025 01:46:19 PM Interpretation: Performing Lab:[facility], [address] [place] [phone] Notes/Report: White Blood Count 7.4 4.8-10.8 X10*3/uL [...] 0.000 0.0-0.012 X10*3/uL C ORRECTED REPORT Comprehensive [place]. Panel Fa st Reviewed date:01/27/2025 01:46:19 PM Interpretation: Performing Lab:[facility], [address] [place] [phone] Notes/Report: Sodium 138 135-145 mmol/L Potassium 4.2 [...] Panel Reviewed date:01/27/2025 01:46:19 PM Interpretation: Performing Lab:[facility], [address] [place] [phone] Notes/Report: Triglycerides 95 <150 mg/dL Desirable Triglyceride: [...] Antigen Reviewed date:01/27/2025 01:46:19 PM Interpretation: Performing Lab:[facility], [address] [place] [phone] Notes/Report: Prostate Specific Antigen < 0.10 <0.05-4.0 ng/mL PSA methodology: Rodriguez Alinity i Chemiluminescent Microparticle Immunoassay (CMIA) SLIDE REVIEW Reviewed date:01/27/2025 01:46:19 PM Interpretation: Performing Lab:[facility], [address] [place] [phone] Notes/Report: SLIDE REVIEW VERIFIED Complete Blood Count Auto Di ff Reviewed date:01/27/2025 01:46:19 PM Interpretation: Performing Lab:[facility], [address] [place] [phone] Notes/Report: White Blood Count 7.4 4.8-10.8 X10*3/uL [...] yet r eviewed by provider) Interpretation: Performing Lab:[facility], [address] [place] [phone] Notes/Report: Alpha Fetoprotein 7.9 <6.1 ng/mL This test was performed using the Sylvie Jeramy chemiluminescent method. Values obtained from different assay methods cannot be used interchangeably. AFP levels, regardless of value, should not be interpreted as absolute evidence of the presence or absence of disease. THIS TEST WAS PERFORMED AT: [facility] [address] [place] [phone] TORSTEN GARG MD Complete Blood Count Auto Di ff Reviewed date:04/17/2025 09:18:18 AM Interpretation: Performing Lab:[facility], [address] [place] [phone] Notes/Report: White Blood Count 5.9 4.8-10.8 X10*3/uL [...] NRBC Abs Auto 0.000 0.0-0.012 X10*3/uL Comprehensive [place]. Panel Fa st Reviewed date:04/17/2025 09:18:18 AM Interpretation: Performing Lab:[facility], [address] [place] [phone] Notes/Report: Sodium 137 135-145 mmol/L Potassium 4.5 [...] Ferritin Reviewed date:04/17/2025 09:18:18 AM Interpretation: Performing Lab:[facility], [address] [place] [phone] Notes/Report: Ferritin 911 20-250 ng/mL Lipid Panel Reviewed date:04/17/2025 09:18:18 AM Interpretation: Performing Lab:[facility], [address] [place] [phone] Notes/Report: Triglycerides 104 <150 mg/dL Desirable Triglyceride: [...] Antigen Reviewed date:04/17/2025 09:18:18 AM Interpretation: Performing Lab:[facility], [address] [place] [phone] Notes/Report: Prostate Specific Antigen < 0.10 <0.05-4.0 ng/mL PSA methodology: Rodriguez Maria L i Chemiluminescent Microparticle Immunoassay (CMIA) Folate Reviewed date:04/17/2025 09:18:18 AM Interpretation: Performing Lab:[facility], [address] [place] [phone] Notes/Report: Folate 16.3 > or = 4.0 ng/mL Reference Values: > or = 4.0 ng/mL < 4.0 ng/mL suggests folate deficiency Methotrexate, aminopterin and folinic acid (leucovorin) are chemotherapeutic agents whose molecular structures are similar to folate; therefore, the Scene Shifter folate assay cannot be used for patients using these drugs. Reason For Referral No Information Medications Medication SIG (Take, Route, Frequency, Duration) Notes Start Date End Date Status Telmisartan 20 MG 1 tablet Orally Once a day Active Iron (Ferrous Sulfate) 325 (65 Fe) MG 1 tablet Orally Once a day Active Montelukast Sodium 10 MG 1 tablet Orally Once a day Active Albuterol Sulfate HFA 108 (90 Base) MCG/ACT Inhalation Active Atorvastatin Calcium 10 MG 1 tablet Oral ly Once a day Active Folic Acid 1 MG 1 tablet Orally Once a day 01/31/2025 Active Symbicort 160-4.5 MCG/ACT as directed Inhalation Active Immunizations Vaccine Route Administration Date Status [...] Status W/U Status Risk Notes Problem Asthma (227707188) Asthma (J45.909) Active confirmed He repo rts no difficulty with breathing since his last visit. He tolerated the hot weather of the summer without difficulty. Problem Anemia (357093326) Anemia (D64.9) Active confirmed His hemat ocrit is slightly lower, but he had a recent episode of bleeding which required hospitalization. His ferritin is rising. His iron supplementation has been stopped. This will be observed. Problem Diabetes mellitus (96455491) Diabetes mellitus (E11.9) Active confirmed Is A1c was quite low and primary care has discontinued his ddiabetic medications. His current fasting glucose is 111. Problem 614864593 Mixed hyperlipidemia (E78.2) Active confirmed Is currently stable and no change in his treatment is needed. Problem Hypertension (87003273) HTN (hypertension) (I10) Active confirmed His blood pressure is currently stable at 137/49 and no change in his regimen is needed today. Problem Hypothyroid (76626525) Hypothyroid (E03.9) Active confirmed He remains euthyroid. No change in his medication was needed. Problem 618105716 Urothelial carcinoma (C68.9) Active confirmed There is no sig n of recurrent disease at this time. The ileostomy is functioning well.He was hospitalized recently for bleeding into the urostomy but this has resolved and no serious cause was found. Problem 6098328400462 Benign prostatic hyperplasia with lower urinary tract symptoms (N40.1) Active confirmed He rises from sleep once or twice a night to urinate depending upon fluid intake. We reviewed lifestyle modification she could make to reduce nocturia. 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 He has had no bleeding. The ostomy is functioning well. Problem 34551435 Cirrhosis of liver without ascites, unspecified hepatic cirrhosis type (K74.60) Active confirmed On the MRI of the liver has been done by his gastroenterologi st, Dr. Burnett. It showed thickening of the renal pelvis which will be referred to urology. It also showed 2 enhancing masses in the liver 1 being 1.1 cm equivocal for hepatocellular carcinoma. This is being followed. An alpha-fetoprotei n will be obtained.A repeat MRI has been scheduled. Problem 077857172 History of tuberculosis (Z86.11) Active confirmed Vital Signs Heart Rate 71 /min 05/04/2025 Temperature 98.4 degrees Fahrenheit 05/04/2025 Blood pressure diastolic 49 mm Hg 05/04/2025 Height 61 in 05/04/2025 Blood pressure systolic 137 mm Hg 05/04/2025 Weight 128 lbs 05/04/2025 BMI 24.18 kg/m2 05/04/2025 Encounters Encounter Location Date Provider Diagnosis Darrian Ziegler III, MD [address] [place] [address] [address] [place] [address] 01/31/2025 Darrian Ziegler Urothelial carcinoma C68.9 ; Cirrhosis of liver without ascites, unspecified hepatic cirrhosis type K74.60 ; HTN (hypertension) I10 ; Hypothyroid E03.9 ; Anemia, unspecified type D64.9 ; Benign prostatic hyperplasia with lower urinary tract symptoms N40.1 ; Ileostomy in place Z93.2 and Diabetes mellitus E11.9 Darrian Ziegler III, MD [address] [place] [address] [address] [place] [phone] 05/04/2025 Darrian Ziegler HTN (hypertension) I 10 [...] the liver has been done by his farm or ranch animal caretaker, Dr. Burnett. It showed thickening of the renal pelvis which will be referred to urology. It also showed 2 enhancing masses in the liver 1 being 1.1 cm equivocal for hepatocellular carcinoma. This will be followed. An alpha-fetoprotein will be obtained. 05/04/2025 HTN (hypertension) (ICD-10 - I10) His blood pressure is currently stable at 137/49 and no change in his regimen is needed today. 05/04/2025 Cirrhosis of liver without ascites, unspecified hepatic cirrhosis type (ICD-10 - K74.60) On the MRI of the liver has been done by his farm or ranch animal caretaker, Dr. Burnett. It showed thickening of the renal pelvis which will be referred to urology. It also showed 2 enhancing masses in the liver 1 being 1.1 cm equivocal for hepatocellular carcinoma. This is being followed. An alpha-fetoprotein will be obtained.A repeat MRI has been scheduled. 01/31/2025 HTN (hypertension) (ICD-10 - I10) His blood pressure is currently stable at 139/62 and no change in his regimen is needed today. 05/04/2025 Asthma (ICD-10 - J45.909) He reports no difficulty with breathing since his last visit. He tolerated the hot weather of the summer without difficulty. 01/31/2025 Hypothyroid (ICD-10 - E03.9) He remains euthyroid. No change in his medication was needed. 05/04/2025 Anemia (ICD-10 - D64.9) His hematocrit is slightly lower, but he had a recent episode of bleeding which required hospitalization. His ferritin is rising. His iron supplementation has been stopped. This will be observed. 01/31/2025 Anemia, unspecified type (ICD-10 - D64.9) He has a mild anemia which is likely from hypersplenism and chronic disease. He has had no bleeding. It is stable. 05/04/2025 Diabetes mellitus (ICD-10 - E11.9) Is A1c was quite low and primary care has discontinued his ddiabetic medications. His current fasting glucose is 111. 01/31/2025 Benign prostatic hyperplasia with lower urinary tract symptoms (ICD-10 - N40.1) He rises from sleep once or twice a night to urinate depending upon fluid intake. We reviewed lifestyle modification she could make to reduce nocturia. 05/04/2025 Hypothyroid (ICD-10 - E03.9) He remains euthyroid. No change in his medication was needed. 01/31/[address] (ICD-10 - Z93.2) The urine in the bag appeared to be completely normal. He has had no bleeding. The ostomy is functioning well. 05/04/2025 Urothelial carcinoma (ICD-10 - C68.9) There is no sign of recurrent disease at this time. The ileostomy is functioning well.He was hospitalized recently for bleeding into the urostomy but this has resolved and no serious cause was found. 01/31/2025 Diabetes mellitus (ICD-10 - E11.9) His diabetes has been well controlled. No change in his medications was necessary today. 05/04/[address] (ICD-10 - Z93.2) [...] make to reduce nocturia. Plan Of Treatment Pending Test Test Name Order Date PROFILE, FASTING (COMPREHENSIVE METABOLI C) 05/02/2024 PROFILE, FASTING (COMPREHENSIVE METABOLI C) 05/19/2023 PROFILE, FASTING (COMPREHENSIVE METABOLI C) 05/04/2025 PROFILE, FASTING (COMPREHENSIVE METABOLI C) 12/29/2023 PROFILE, [...] 05/02/2024 PSA, TOTAL 05/19/2023 CBC w DIFF 01/12/2023 CBC w DIFF 01/31/2025 CBC w DIFF 05/13/2022 CBC w DIFF 05/04/2025 CBC w DIFF 10/15/2021 CBC w DIFF 11/12/2021 CBC w DIFF 05/19/2023 SED RATE (ESR) 10/15/2021 RETICULOCYTE COUNT,CORRECTED 11/12/2021 RETICULOCYTE COUNT,CORRECTED 10/15/2021 ALPHA-FETOPROTEIN,TUMOR MARKER 06/24/202 5 ALPHA-FETOPROTEIN,TUMOR MARKER 5 MRI ABD W&WO CONTRAST 05/04/2025 CBC WITH AUTO DIFF 05/02/2024 CBC WITH AUTO DIFF 12/29/2023 Ferritin 01/31/2025 Ferritin 05/04/2025 Lipid Panel 05/04/2025 Lipid Panel 05/02/2024 Lipid Panel 12/29/2023 Lipid Panel 01/31/2025 Folate 01/31/2025 Alpha Fetoprotein 04/14/2025 Microalbumin, Random 05/19/2023 Hemoglobin A1c 05/04/2025 Hemoglobin A1c 12/29/2023 Next Appt Details Provider Name:Darrian Ziegler , 12/11/2025 02:00:00 PM, [address] [place] [address] DR, [facility] [address], [place], [address], Insurance Providers Payer Name Payer Address Payer Phone Subscriber Number Group Number Insured Name Patient Relationship to Insured Coverage Start Date Coverage End Date [facility] [address] [place] [address] [id number] Alexia Agosto Self - patient is the insured MEDICAID [facility] [address] [place] [id number] Alexia Agosto Self - patient is the insured MEDICARE [employer] [address] [place] [address] [id number] Alexia Agosto Self - patient is the [...]
== END 2025-05-05 11:25 | disposition home or self-care (01) ==
LOC: HO.CT 11:24
PROVIDERS: PCP Internal Medicine; Visit Provider Internal Medicine Pulmonary Disease
DX: R91.8 Other nonspecific abnormal finding of lung field (principal)
CPT/HCPCS: 71250

== ENCOUNTER → 2025-05-05 11:26 | Outpatient (BNV) | payer OTHER, SELFPAY | PROVIDERS: PCP Internal Medicine; Visit Provider Radiology Diagnostic Radiology | DX: R91.8 Other nonspecific abnormal finding of lung field (principal); K74.60 Unspecified cirrhosis of liver; I25.10 Atherosclerotic heart disease of native coronary artery without angina pectoris; I35.0 Nonrheumatic aortic (valve) stenosis | CPT/HCPCS: 71250 ==

== ENCOUNTER 2025-05-08 10:24 | Day surgery (SDC) | payer OTHER, SELFPAY ==
--- NOTE | 2025-05-04 10:07 | HO.ANESPROP2 ---
Documented by User: rPicilla León NP 05/05/25 11:25 HPI - Anesthesia Eval Consult details Narrative: 75yo M for Urostomy Revision History of bladder cancer, status post cystectomy and ileal conduit in 2020 in [place]. Multiple [facility] admits 02/2025-03/2025 with bleeding/clots from urostomy. Requiring blood transfusions. s/p cysto's/hydrocele repair (LMA 4). 02/2025 Left lower lung mass 4cm on CT - inpatient consult with rec's for outpatient f/u 6-8 weeks Aortic stenosis GARY 1.09 Anesthesia Pre-Procedure Meds Is the patient on any of the following meds?: GLP1/DPP4 PMFSH Active Problems Active Problems: All Active Problems Complication of urostomy (Acute) Urologic bleed (Acute) Low bicarbonate (Acute) Abnormal CT scan, chest (Acute) Mass of left lung (Acute) Bladder cancer (Acute) Past Medical History Medical History (Updated 05/04/25 @ 10:17 by Pricilla León NP) Aortic stenosis Complication of urostomy History of bladder cancer Abdominal distention Cirrhosis of liver HTN (hypertension) Acute hyponatremia Hydronephrosis Bladder cancer Asthma Diabetes Bladder cancer Incomplete emptying of bladder due to benign prostatic hyperplasia Complicated urinary tract infection Family History Family history of problems with anesthesia: No Surgical History Surgical History History of surgery History of ileal conduit History of Problems with Anesthesia: No Social History Social History Household Members: Family Housing: House Are you a primary care worker to a significant other at home: No Do you presently have visiting nurse or other home services: Yes Alcohol intake: never Comment: bedside Patient Tobacco Use Status: Never used Tobacco Use of substances other than those prescribed or required for medical reasons: No Advance Directives: No Advance Directives Information Provided: Yes Advance Directives Date on File: 03/12/25 service: No Current occupational status: retired Meds Allergies Allergy/AdvReac Type Severity Reaction Status Date / Time aspirin Allergy Unknown Verified 04/28/25 15:00 Beta-Blockers AdvReac Unknown Verified 04/28/25 15:00 (Beta-Adrenergic Bloc ibuprofen AdvReac Unknown Verified 04/28/25 15:00 Home Medications ?Medication ?Instructions ?Recorded ?Confirmed ?Last Taken ?Type blood sugar diagnostic (FreeStyle #10 ea 04/18/21 01/05/24 Unknown History Lite Strips) montelukast 10 mg tablet 10 mg PO DAILY 04/18/21 03/21/25 03/20/25 History lancets 28 gauge (FreeStyle #100 ea 06/24/21 01/05/24 Unknown History Lancets) folic acid 1 mg tablet 1 mg PO DAILY 12/10/21 03/21/25 03/20/25 History albuterol sulfate 90 mcg/actuation 2 puff PO QID PRN Shortness Of 02/08/22 03/21/25 Unknown History aerosol inhaler Breath atorvastatin 20 mg tablet 20 mg PO BEDTIME 03/01/25 03/21/25 03/19/25 History ferrous sulfate 325 mg (65 mg 325 mg PO DAILY 03/01/25 03/21/25 03/20/25 History iron) tablet (iron) metformin 500 mg tablet 500 mg PO BID 03/01/25 03/21/25 03/20/25 History sitagliptin phosphate 50 mg tablet 50 mg PO DAILY 03/01/25 03/21/25 03/20/25 History (Januvia) telmisartan 20 mg tablet 20 mg PO DAILY 03/01/25 03/21/25 03/20/25 History bisacodyl 5 mg tablet,delayed 5 mg PO DAILY constipation 03/21/25 03/21/25 03/20/25 History release (Dulcolax (bisacodyl)) fluticasone 232 mcg-salmeterol 14 1 inh inhalation BID 03/21/25 03/21/25 03/20/25 History mcg/actuation breath activated powdr Exam Pertinent Lab Results Pertinent Lab Results: Laboratory Tests 04/28/25 15:21 WBC 7.1 Hgb 9.2 L Hct 26.7 L Plt Count 124 L Sodium 136 Potassium 4.4 Chloride 112 H Carbon Dioxide 20 L BUN 22 H Creatinine 1.29 Narrative Narrative: EKG 03/2025 Vent. Rate : 78 BPM Atrial Rate : 78 BPM P-R Int : 166 ms QRS Dur : 96 ms QT Int : 384 ms P-R-T Axes : 33 205 30 degrees QTcB Int : 437 ms Sinus rhythm with Premature atrial complexes Right superior axis deviation Incomplete right bundle branch block Septal infarct (cited on or before 23-Mar-2025) Abnormal ECG When compared with ECG of 23-Mar-2025 04:18, Premature atrial complexes are now Present QRS axis Shifted left Questionable change in initial forces of Septal leads ECHO 03/2025 Conclusions: - Normal left ventricular cavity size. The left ventricular systolic function is hyperdynamic. The visually estimated ejection fraction is >70%. - Spectral Doppler is indicative of a restrictive filling pattern. Elevated filling pressures. - Normal right ventricular cavity size and systolic function. - There is a bicuspid aortic valve. There is moderate calcification of the aortic valve. There is moderate aortic valve stenosis. AoV Pk Grad: 41.00 Aov Mn Grad: 27.00 GARY Cont.VTI: 1.09 CT chest wo IV con 02/2025 IMPRESSION: 1. Lobulated 4.8 x 4.3 x 4.2 cm in left lower lobe mass, highly suspicious for neoplasm. There is associated mediastinal lymphadenopathy, as described. 2. Atrophic right kidney with mild dilatation of the renal pelvis and ureter to the level of a urinary diversion. Findings are similar to the prior study and likely represent reflux. 3. Cirrhosis of the liver. Assessment and Plan Assessment Anesthesia Assessment: Chart Reviewed Final Anesthetic Review Family History of Problems with Anesthesia: No History of Problems with Anesthesia: No Documented by User: Parker Conde MD 05/08/25 12:54 [facility] Past Medical History Medical History (Updated 05/04/25 @ 10:17 by Pricilla León NP) Aortic stenosis Complication of urostomy History of bladder cancer Abdominal distention Cirrhosis of liver HTN (hypertension) Acute hyponatremia Hydronephrosis Bladder cancer Asthma Diabetes Bladder cancer Incomplete emptying of bladder due to benign prostatic hyperplasia Complicated urinary tract infection Functional capacity: independent ambulation Surgical History Surgical History History of surgery History of ileal conduit Social History Social History Household Members: Family Housing: House Are you a primary care worker to a significant other at home: No Do you presently have visiting nurse or other home services: Yes Alcohol intake: never Comment: bedside Patient Tobacco Use Status: Never used Tobacco Use of substances other than those prescribed or required for medical reasons: No Advance Directives: No Advance Directives Information Provided: Yes Advance Directives Date on File: 03/12/25 service: No Current occupational status: retired Meds Allergies Allergy/AdvReac Type Severity Reaction Status Date / Time aspirin Allergy Unknown Verified 04/28/25 15:00 Beta-Blockers AdvReac Unknown Verified 04/28/25 15:00 (Beta-Adrenergic Bloc ibuprofen AdvReac Unknown Verified 04/28/25 15:00 Home Medications ?Medication ?Instructions ?Recorded ?Confirmed ?Last Taken ?Type blood sugar diagnostic (FreeStyle #10 ea 04/18/21 01/05/24 Unknown History Lite Strips) montelukast 10 mg tablet 10 mg PO DAILY 04/18/21 03/21/25 03/20/25 History lancets 28 gauge (FreeStyle #100 ea 06/24/21 01/05/24 Unknown History Lancets) folic acid 1 mg tablet 1 mg PO DAILY 12/10/21 03/21/25 03/20/25 History albuterol sulfate 90 mcg/actuation 2 puff PO QID PRN Shortness Of 02/08/22 03/21/25 Unknown History aerosol inhaler Breath atorvastatin 20 mg tablet 20 mg PO BEDTIME 03/01/25 03/21/25 03/19/25 History ferrous sulfate 325 mg (65 mg 325 mg PO DAILY 03/01/25 03/21/25 03/20/25 History iron) tablet (iron) metformin 500 mg tablet 500 mg PO BID 03/01/25 03/21/25 03/20/25 History sitagliptin phosphate 50 mg tablet 50 mg PO DAILY 03/01/25 03/21/25 03/20/25 History (Januvia) telmisartan 20 mg tablet 20 mg PO DAILY 03/01/25 03/21/25 03/20/25 History bisacodyl 5 mg tablet,delayed 5 mg PO DAILY constipation 03/21/25 03/21/25 03/20/25 History release (Dulcolax (bisacodyl)) fluticasone 232 mcg-salmeterol 14 1 inh inhalation BID 03/21/25 03/21/25 03/20/25 History mcg/actuation breath activated powdr Exam Exam Date and Time: 05/08/2025 Airway Mallampati Class: II TM Dist: >3cm Neck ROM: Full Loose/Missing/Broken Teeth: No Heart: rrr Lungs: cta Other: ruth Assessment and Plan Final Anesthetic Review NPO: Yes ASA Class: III Final Preanesthetic Review: Meds/Allgs Chart Reviewed and Consent Obtained/Reviewed Patient Risk: Low Procedure Risk: Low Anesthetic Plan Anesthetic Plan: GA Disposition: Standard PACU
[2025-05-04 11:32] VITALS: BMI 24.8
[2025-05-08] VITALS (9 sets, daily range): BP systolic 124–172; BP diastolic 60–82; PULSE 67–88; RESP 12–18; TEMP 36.1–37.1; O2SAT 99–100; BMI 22.6; BMI 25.2
[2025-05-08] MEDS: Lactated Ringers 1,000 ML 100 ML IVCONT ×2 (10:52→15:58)
[2025-05-08 11:02] LABS: Glucose, Whole Blood 138 mg/dL (60-115)
[2025-05-08 11:27] LABS: Hematocrit 27.4 % (42.0-52.0); Hemoglobin 8.9 g/dl (14.0-18.0); Mean Corpuscular HGB Conc 32.5 g/dl (31.0-36.0); Mean Corpuscular Hemoglobin 31.8 pg (27.0-33.0); Mean Corpuscular Volume 97.9 fL (80.0-98.0); NRBC Abs Auto 0.000 X10*3/uL (0.0-0.012); NRBC Pct Auto 0.0 /100WBC (0.0-0.2); Platelet Count 132 X10*3/uL (160-400); Red Blood Count 2.80 X10*6/uL (4.60-5.80); White Blood Count 5.5 X10*3/uL (4.8-10.8)
[2025-05-08 11:31] LABS: INTERNATIONAL NORM RATIO 1.0 (0.9-1.1); Prothrombin Time 12.0 SEC (10.9-12.4)
--- NOTE | 2025-05-08 12:33 | P.HPSUR_ITS ---
Pre-Procedural Eval Section A - 24 Hr Update-Section A only Date of Service: 05/08/25 The patient is an INPATIENT: No Changes since office visit: No Cold of Flu in the past 2 weeks, No New Medical Problems, No Changes in Medication and No Patient answered all questions The patient has been examined within 24 hours of the surgical procedure. The History & Physical has been completed within 30 days and I have reviewed it.: Yes Section B - Complete if H&P > 30 days Chief Complaint: Encounter for attention to ileostomy Details of Present Illness: urostomy revision pull through Allergies: Allergies Allergy/AdvReac Type Severity Reaction Status Date / Time aspirin Allergy Unknown Verified 04/28/25 15:00 Beta-Blockers AdvReac Unknown Verified 04/28/25 15:00 (Beta-Adrenergic Bloc ibuprofen AdvReac Unknown Verified 04/28/25 15:00 Review of Systems Sugical H&P ROS: Negative: Constitution, Cardiovascular, Respiratory, Neurological, Psychiatric, Hem-Onc, Allergic/Immunologic, Gastrointestinal, Genitourinary, Musculoskeletal, Integumentary, Endocrine and Eyes/Ears/Nose /Throat Exam Surgical H&P Exam: Normal: HEENT, Normal: Heart, Normal: Lungs, Normal: Extremities, Normal: Abdomen, Normal: Skin and Normal: Neurological Plan Diagnosis/Plan: Unchanged I have reviewed the history and physical and performed a pertinent physical examination on my patient. No changes have occurred unless specified. Time Spent With Patient Time: Total time managing care of this patient today ____ minutes.
[2025-05-08] MEDS: cefoTEtan disodium 2 GM VIAL IVPUSH (13:20)
--- NOTE | 2025-05-08 14:27 | W.PM.OPN ---
Operative Note Operative Note Date of Service: 05/08/25 Narrative: PreOperative Diagnosis: Leaking ureterostomy Post Operative Diagnosis: Small hole in medial urostomy wall Procedure: Repair of urostomy Surgeon: Dr Mauro Narayan and Dr. Adair Phelan Anesthesia: General Indications for procedure: Pleasant 75-year-old male. Had undergone stoma revision for bleeding proximally 4 weeks ago. In the postoperative course was noted to have leaking of urine parastomal medial position. On examination noted to have a mucosal defect proximally 1 cm in size on the inferomedial aspect of the stoma. Defect was below the level of the skin and did not involve the anastomotic edge. We planned a stoma revision that ranged from repair of stomal will defect through to advancing the stoma loop with full revision. Procedure: After informed consent was verified the patient was brought to the operating room and placed in a supine position. Anesthesia was administered per protocol. The patient was prepped and draped in a sterile fashion. Safety pause time-out was performed. Antibiotics being given. The stoma was examined. The small inferomedial defect was identified. Judge catheter was placed through the stoma into the bladder and 7 cc placed in the balloon to allow diversion. Using a 15 blade the edge between the mucosa and the skin was carefully open. This was performed around the 1/3 circumference involving the inferomedial aspect running along the inferior aspect of the stoma. Using mosquito forceps tissue was carefully spread trying to maintain the stone were associated fat and defined the plane between stoma wall and the parastomal fat. This was opened and taken down to the level of the fascia in the inferomedial aspect. After this maneuver was complete using forceps we were able to identify the hole within the stoma wall. Appeared to be only be a proximally 1 cm. Decision was made to allow for primary closure rather than complete stomal revision. Using 3-0 Vicryl is a a running suture was placed from the superior aspect of the stomal whole and run in an inferomedial fashion closing the stomal fall. We are able to use the back over 4 cm in order to properly display the hole. There was a small amount of reactive tissue that was cut and removed. A 2nd layer of [id number] sutures was placed in order to bolster the primary repair. Irrigation was performed. Reapproximation took place between the stoma edge and skin edge using interrupted 3-0 Vicryl [id number]. All bleeding was carefully controlled with suture and Bovie was discouraged in order to minimize the potential for recurrence. Three [id number] 3-0 chromic sutures were then placed skin level to assist with reapproximation. At the completion of the procedure the stoma was dilated and there was no evidence of back walling through the stoma wall and no evidence of the stoma wall defect was present. Judge catheter was placed back into the ileal conduit and will remain for 48-72 hours to allow healing. A stoma appliance was placed after the area was cleaned and dried. He tolerated the procedure well was extubated in the operating room and transferred in stable condition to the recovery area Pathology: [] Drains: []
[2025-05-08] MEDS: 0.9 % Sodium Chloride Flush 3 ML SYRINGE IVFLUSH (16:00)
--- NOTE | 2025-05-08 17:54 | PC.NURSE ---
1615 Pharmacy contacted regarding tranexamic acid IV order. Per pharmacy, med was not given in OR or PACU and medication available in pyxis. When this RN checked pyxis, medication not available on this unit. This RN contacted pharmacy again who stated they would deliver med to unit. 1815- medication still not available from pharmacy.
[2025-05-08] MEDS: Tranexamic Acid 1,000 MG in 0.9 % Sodium Chloride 50 ML 360 MG IV (18:38)
--- NOTE | 2025-05-08 18:38 | PHA.MEDREC ---
Addendum entered by Milo Broussard PharmD 05/08/25 18:41: reviewed Original Note: Pharmacy Consult ? Medication Reconciliation Pharmacy has completed the medication reconciliation. Patient was able to confirm all of his medications. Patient states he is no longer taking Ferrous sulfate 325 mg, Januvia 50 mg and Metformin 500 mg. Patient last had his medications yesterday afternoon.
[2025-05-09] MEDS: Milk of Magnesia 30 ML ORAL.SUSP PO (00:21)
[2025-05-09] MEDS: Lactated Ringers 1,000 ML 100 ML IVCONT ×2 (00:21→07:29)
[2025-05-09] MEDS: oxyCODONE HCl Immed Release 5 MG TABLET PO ×2 (03:14→09:33)
[2025-05-09 08:00] VITALS: BP 133/70; PULSE 63; RESP 16; TEMP 36.4; O2SAT 100
--- NOTE | 2025-05-09 09:07 | HO.POSTANES ---
Post Anesthesia Evaluation Post Anesthesia Evaluation Date of Service: 05/09/25 Vital Signs: Vital Signs Temp Pulse Resp BP Pulse Ox O2 Del Method 05/09/25 08:00 97.6 F 63 16 133/70 100 Room Air 05/08/25 23:22 98.7 F 88 18 162/82 H 99 Room Air 05/08/25 23:19 97.8 F 72 18 164/81 H 100 Room Air Anesthesia: General Mental Status: Awake Pain Control: Satisfactory Nausea/Vomiting: None Hydration: Adequate Anesthesia-Related Issues: No Anes. Related Issues
--- NOTE | 2025-05-09 10:51 | MHC.CM.PN ---
PT LIVES WITH WILL NEED A VNA WHEN DCD HAS A RIDE HOME
--- NOTE | 2025-05-09 11:35 | MHC.CM.PN ---
referral to [facility] for vna
[2025-05-09 16:00] VITALS: BP 148/69; PULSE 66; RESP 19; TEMP 36.2; O2SAT 98
--- NOTE | 2025-05-09 16:50 | P.PNUR_ITS ---
Subjective Subjective Date of Service: 05/09/25 Interval history: Postoperative day 1 Incision looks good Draining well No bleeding discharge home Keep on mostly clear liquid diet till after colonoscopy Physical Exam 2 Vital Signs: Vital Signs: Last Vital Signs Temp 97.2 F 05/09/25 16:00 Pulse 66 05/09/25 16:00 Resp 19 05/09/25 16:00 BP 148/69 H 05/09/25 16:00 Pulse Ox 98 05/09/25 16:00 O2 Del Method Room Air 05/09/25 16:00 O2 Flow Rate 6 05/08/25 14:38 BMI result Body Mass Index 25.2 Const: General: cooperative, healthy appearing, comfortable and no acute distress Orientation/consciousness: patient oriented x3 HEENT: Face and sinus: Yes normal facial exam Mouth: moist mucous membranes Neck: Neck: Yes normal visual inspection, Yes full ROM and Yes trachea midline Chest: Chest palpation & inspection: normal inspection of the chest Resp: Effort & Inspection: normal respiratory effort, able to speak in complete sentences and no respiratory distress GI: Inspection: Yes normal to inspection Back/Spine/Pelvis: Cervical Spine: normal cervical lordosis Thoracic/Lumbar Spine: thoracic and lumbar spine normal to inspection Skin: General skin exam: no rashes or lesions noted Neuro: General: patient oriented x3, gait normal, tone normal and moves all extremities Extrem: General: Yes normal to inspection and Yes capillary refill normal Urology Results Labs 05/08/25 11:19 Progress Note: A&P Assessment and plan (1) Complication of urostomy: Status: Acute Plan Follow-up for removal Judge catheter Time Spent With Patient Time: Total time managing care of this patient today ____ minutes.
--- NOTE | 2025-05-09 16:52 | PM.DS ---
DS: Providers Provider Date of Service: 05/08/25 Date of discharge: 05/09/25 Primary care physician: Hilary Jimenez MD DS: Diagnosis Discharge Diagnosis (1) Complication of urostomy: Status: Acute DS: Summary Hospital Course Hospital Course: Underwent operative revision Had small hole in the stomal wall Able to be sewn from outside Remained in hospital overnight Status at Discharge Overall status at discharge: patient is back to baseline Time Attestation Total time managing care of this patient today: 15 mintues. Discharge Coordination Time (in mins): 10 Quality: Safe Use of Opioids Does Pt have an Active Cancer Diagnosis on the Problem List?: No Quality: Stroke Does the patient have a stroke diagnosis?: No Physical Exam Vital Signs: Vital Signs: Last Vital Signs Temp 97.2 F 05/09/25 16:00 Pulse 66 05/09/25 16:00 Resp 19 05/09/25 16:00 BP 148/69 H 05/09/25 16:00 Pulse Ox 98 05/09/25 16:00 O2 Del Method Room Air 05/09/25 16:00 O2 Flow Rate 6 05/08/25 14:38 BMI result Body Mass Index 25.2 Const: General: cooperative, healthy appearing, comfortable and no acute distress Orientation/consciousness: patient oriented x3 HEENT: Face and sinus: Yes normal facial exam Mouth: moist mucous membranes Neck: Neck: Yes normal visual inspection, Yes full ROM and Yes trachea midline Chest: Chest palpation & inspection: normal inspection of the chest Resp: Effort & Inspection: normal respiratory effort, able to speak in complete sentences and no respiratory distress GI: Inspection: Yes normal to inspection Back/Spine/Pelvis: Cervical Spine: normal cervical lordosis Thoracic/Lumbar Spine: thoracic and lumbar spine normal to inspection Skin: General skin exam: no rashes or lesions noted Neuro: General: patient oriented x3, tone normal and moves all extremities Extrem: General: Yes normal to inspection and Yes capillary refill normal DS: Data Data Completed and Pending Completed studies during hospitalization [Text1]: Procedures Inspection of Bladder, Via Natural or Artificial Opening Endoscopic (03/01/25) Repair Abdominal Wall, Stoma, External Approach (03/01/25) Repair Small Intestine, Open Approach (03/14/25) Transfusion of Nonautologous Platelets into Peripheral Vein, Percutaneous Approach (03/14/25) Transfusion of Nonautologous Red Blood Cells into Peripheral Vein, Percutaneous Approach (03/14/25) Discharge Plan Discharge Patient Disposition: Home, Self-Care Referrals: Hilary Jimenez MD [Primary Care Provider, Internal Medicine] Discharge Medications: New tranexamic acid 650 mg tablet 650 mg PO DAILY 5 Days Qty: 5 0RF Continued (DME) MicroHesive Stoma Paste Paste See Rx Instructions .Route Qty: 60 5RF Rx Instructions: Securi-T stoma paste (DME) ostomy supplies-skin barrier 8 X 8 wafer See Rx Instructions .Route Qty: 30 6RF Rx Instructions: As directed, change every 3 days . (DME) Assura Urostomy Pouch 10 misc See Rx Instructions .Route Qty: 10 4RF Rx Instructions: Item number [id number] albuterol sulfate 90 mcg/actuation HFA aerosol inhaler 2 puff PO QID PRN (Reason: Shortness Of Breath) fluticasone propion-salmeterol 232-14 mcg/actuation aerosol powdr breath activated 1 inh INHALATION BID bisacodyl [Dulcolax (bisacodyl)] 5 mg tablet,delayed release (DR/EC) 5 mg PO DAILY atorvastatin 20 mg tablet 20 mg PO BEDTIME telmisartan 20 mg tablet 20 mg PO DAILY ferrous sulfate [iron] 325 mg (65 mg iron) Tablet 325 mg PO DAILY docusate sodium [Colace] 100 mg capsule 100 mg PO DAILY PRN (Reason: constipation) Qty: 30 0RF montelukast 10 mg tablet 10 mg PO DAILY (DME) FreeStyle Lite Strips Strip See Rx Instructions Not Applicable DAILY Qty: 10 Rx Instructions: As directed (DME) lancets [FreeStyle Lancets] 28 gauge misc See Rx Instructions topical BID Qty: 100 Rx Instructions: As directed folic acid 1 mg tablet 1 mg PO DAILY (DME) ostomy supplies-skin barrier 6 X 6 wafer See Rx Instructions .Route Qty: 30 1RF Rx Instructions: Securi-T [facility] [id number] - change every 3 days Discharge Orders: Discharge Order (Routine); Ordered 05/09/25 Ordered By: Mauro Narayan Diet: Advance to usual diet Activity on Discharge: As tolerated Print Language: Vietnamese
== END 2025-05-09 17:21 | disposition home or self-care (01) ==
LOC: HO.SSS 10:25 → HO.S3 15:10
PROVIDERS: Nurse Practitioner; PCP Internal Medicine; Visit Provider Urology
PROC: (CPT 50727; principal; 2025-05-08 12:10)
DX: N99.528 Other complication of incontinent external stoma of urinary tract (principal); T83.038A Leakage of other urinary catheter, initial encounter; Y73.2 Prosthetic and other implants, materials and accessory gastroenterology and urology devices associated with adverse incidents; C67.9 Malignant neoplasm of bladder, unspecified; R14.0 Abdominal distension (gaseous); N40.1 Benign prostatic hyperplasia with lower urinary tract symptoms; R33.8 Other retention of urine; K74.60 Unspecified cirrhosis of liver; I10 Essential (primary) hypertension; J45.909 Unspecified asthma, uncomplicated; E11.9 Type 2 diabetes mellitus without complications; Z79.899 Other long term (current) drug therapy; Z88.6 Allergy status to analgesic agent; Z88.8 Allergy status to other drugs, medicaments and biological substances
CPT/HCPCS: 50727; 36415; 82947; 85027; 85610; J0131; J1171; J2003; J2371; J2704; J2795; J3010; J7120

== ENCOUNTER → 2025-05-08 10:24 | Outpatient (BNV) | payer OTHER, SELFPAY | PROVIDERS: Visit Provider Urology | DX: N99.528 Other complication of incontinent external stoma of urinary tract (principal) | CPT/HCPCS: 50727; 99024 ==

== ENCOUNTER 2025-05-12 09:51 | Day surgery (SDC) | payer OTHER, SELFPAY ==
--- OUTSIDE RECORDS SUMMARY | 2024-05-02 11:30 | XMS_ITS ---
Author Organization Darrian Ziegler III, MD Address [address] [place] [address] Care Team Providers Care Chalk Tester Name Role Phone Tony PINK, [facility] Primary Care Provider Darrian Smith [phone] Allergies Allergen (clinical drug ingredient) Drug/Non Drug [...] Date Provider Diagnosis Darrian Ziegler III, MD [address] [place] [address] [place], KAREN [address] 05/02/2024 Darrian Ziegler HTN (hypertension) I 10 [...] the liver has been done by his stamp press operator, Dr. Burnett. It showed thickening of the [...] OV Provider Name:Darrian Ziegler, 05/04/2025 10:30:00 AM, [address] [place] [address] DR [facility] [place], [address], Progress Notes * Candelario AGOSTOchandu KDOB: (74 yo M)Acc No.[id number]:05/02/2024 Progress Notes Patient: Zehra GALICIA Provider: Yahaira Ziegler MD :1950 A ge:74 Y S ex:Male Date:05/02/2024 Address:[address] [place], [place] [phone] Pcp:Hilary Jimenez MD Subjective: * Chief Complaints: [...] born in [place] and now lives in [place], [place]. He is and has several children. [...] Temp:97.2, Wt-k.06. * P ast Orders: Lab:[facility] [place]. Cate l Fast * Collection Date 04/15/2024 [...] the liver has been done by his stamp press operator, Dr. Burnett. It showed thickening of the [...] 05/02/2024 Generated for Printi ng/Fabonig/eTransmitting on: 0 02/15/2025 12:58 PM EDT History and Physical Notes * HPI (History of Present Illness) Category Sub-Category Detail Notes COVID-19 Screening Questions Have you had any new onset fever, chills, cough, congestion, sore throat, shortness of breath, muscle aches?: No Have you been exposed to the virus withi n the last 10 days?: No Have you travelled internationally in [facility] last 10 days?: No Have you [...]
--- OUTSIDE RECORDS SUMMARY | 2025-02-15 12:58 | XMS_ITS | Patient Health Record ---
Author Organization [facility] Address [address] [place] [address] Care Team Providers Care Marine Resource Economist Name Role Phone Hilary Boss Primary Care Provider Unavailab Joe Hardy Jr Unavailable [phone] Allergies Allergen (clinical drug ingredient) Drug/Non Drug Allergy documented on EMR Reaction Allergy Type Onset Date Status ibuprofen Ibuprofen Unknown Drug Allergy Active aspirin Aspirin Unknown Drug Allergy Active Substance with beta adrenergic receptor antagonist mechanism of action (substance) beta blockers (uncoded) Unknown Allergy Active Reason For Referral Referring Provider First Name Hilary Referring Provider Last Name Tony Referring Provider Speciality Internal M edicine Referred Organization [facility] Referred Provider Joe Echavarria Jr Referred Address [address],[place], [place],[address], Referred Provider Specialty Gastroentero logy General Notes Brooklyn Barkley 2024 10:14:44 AM > REQUESTED HERACLIO REFEFFAL FROM DR BOSS'S OFFICE FOR VISIT WITH DR ECHAVARRIA ON 02-15-25, Brooklyn Barkley 02/15/2025 11:39:50 AM >no referral required since patient is in the same lumbee of care Referral Priority Routine Medications Medication SIG (Take, Route, Frequency, Duration) Notes Start Date End Date Status Dulcolax Active Januvia 50 MG as directed Orally O nce a day Active Vitamin C 1000 MG 1 tablet Orally Once a day for 30 day(s) Active Iron (Ferrous Sulfate) 325 (65 Fe) MG 1 tablet Orally Three times a Week for 30 day(s) Active metFORMIN HCl 500 MG TAKE 2 TABLETS BY M OUTH EVERY DAY Oral for 90 Active Telmisartan 20 MG 1 tablet Orally Once a day Active Atorvastatin Calcium 10 MG 1 tablet Oral ly Once a day for 30 day(s) Active Albuterol Sulfate 108 (90 Base) MCG/ACT 1 puff as needed Inhalation every 4 hrs Active Vitamin B Complex - as directed Orally Active Folic Acid 1 MG Oral for 30 Ac tive Montelukast Sodium 10 MG 1 tablet Orally Once a day for 30 day(s) Active Immunizations Vaccine Route Administration Date Status Comme nts Influenza Unknown 07/02/2021 Administered Influenza Unknown 05/21/2022 Administered Influenza Unknown 06/01/2024 Administered Social History Tobacco Use: Social History Observation Description Date Details (start date - stop date) Never Smoker NA - NA Tobacco Use/Smoking Question Answer Notes Patient is a nonsmoker Alcohol Screen Question Answer Notes Did you have a drink containing alcohol in the p ast year? No Points 0 Interpretation Negative Problems Problem Type SNOMED Code ICD Code Onset Dates Problem Status W/U Status Risk Notes Problem Oesophageal varices without bleeding (03050737) Secondary esophageal varices without bleeding (I85.10) Active confirmed Problem Portal hypertension (11630752) Portal hypertension (K76.6) Active confirmed Problem 624034274 Liver mass (R16.0) Active confirmed Problem 894311106 Liver lesion (K76.9) Active confirmed Problem 93199329797194208 Abnormal CT scan, liver (R93.2) Active confirmed Problem 51009998 Cirrhosis of liver without ascites, unspecified hepatic cirrhosis type (K74.60) Active confirmed Vital Signs Temperature 97.7 degrees Fahrenheit 02/15/2025 Blood pressure diastolic 01 mm Hg 02/15/2025 Height 62 in 02/15/2025 Blood pressure systolic 001 mm Hg 02/15/2025 Weight 120 lbs 02/15/2025 BMI 21.95 kg/m2 02/15/2025 Encounters Encounter Location Date Provider Diagnosis [facility] [address] [place] [address] 02/15/2025 Joe Echavarria Jr Abnormal findings in stool R19.5 [facility] [address] [place] [address] 05/12/2024 Joe Echavarria Jr Liver lesion K76.9 and Cirrhosis of liver without ascites, unspecified hepatic cirrhosis type K74.60 [facility] [address] [place] [address] 04/27/2024 Joe Reynaord Liver mass R16.0 [facility] [address] [place] [address] 12/26/2024 Joe Echavarria Jr Assessments Encounter Date Diagnosis (ICD Code) Assessment Notes Treatment Notes Treatment Clinical Notes Section Notes 02/15/2025 Abnormal findings in stool (ICD-10 - R19.5) 05/12/2024 Liver lesion (ICD-10 - K76.9) Liver disease - resources material was printed. Please obtain the laboratory testing and MRI imaging we discussed today while you are in [place]. We discussed hepatic cirrhosis today. We discussed the indeterminate nature of liver lesions today. We will have him obtain followup imaging in 3 months. Laboratory studies will be obtained as well. Followup in this office will be in december. 05/12/2024 Cirrhosis of liver without ascites, unspecified hepatic cirrhosis type (ICD-10 - K74.60) We discussed hepatic cirrhosis today. We discussed the indeterminate nature of liver lesions today. We will have him obtain followup imaging in 3 months. Laboratory studies will be obtained as well. Followup in this office will be in december. 04/27/2024 Liver mass (ICD-10 - R16.0) Plan Of Treatment Pending Test Test Name Order Date BUN 01/28/2024 BUN 12/17/2023 CREATININE 01/28/2024 CREATININE 12/17/2023 LIVER PROFILE 12/17/2023 LIVER PROFILE 03/17/2022 LIVER PROFILE 01/28/2024 FERRITIN 03/17/2022 CBC w/o DIFF 03/17/2022 CBC w/o DIFF 01/28/2024 PROTHROMBIN TIME (PT, INR) 03/17/2022 ALPHA-FETOPROTEIN,TUMOR MARKER MITOCHONDRIAL AB 03/17/2022 SMOOTH MUSCLE ANTIBODIES 03/17/2022 MRI ABD W&WO CONTRAST 01/28/2024 MRI ABD W&WO CONTRAST 12/17/2023 US ABDOMEN COMP WITH ELASTOGRAPHY 2021 Alpha Fetoprotein 12/17/2023 Hepatitis A,B,C Profile 12/17/2023 MR abdomen wo/w con 04/27/2024 Future Test Test Name Order Date UPPER GI ENDOSCOPY 03/05/2023 UPPER GI ENDOSCOPY 02/15/2025 COLONOSCOPY 02/15/2025 Next Appt Details Provider Name:Joe estrada , 03/07/2025 11:00:00 AM, [address] [place] [address] , [place], [place], [phone], Insurance Providers Payer Name Payer Address Payer Phone Subscriber Number Group Number Insured Name Patient Relationship to Insured Coverage Start Date Coverage End Date [facility] [address] [place] [phone] [id number] Alexia Agosto Self - patient is the insured MEDICAID OF [facility] [address] [place] [phone] [id number] Alexia Agosto Self - patient is the insured Medical (General) History Medical History History ICD Code diabetes asthma Hypertension Bladder cancer Cirrhosis, likely secondary to fatty lonnie er, compensated Surgical History Surgery Date(Month/Year) bladder cancer Radical cystectomy, ileal conduit Hospitalization History Reason Date(Month/Year)
[2025-05-10 13:36] VITALS: BMI 25.2
--- NOTE | 2025-05-10 15:03 | HO.ANESPROP2 ---
Documented by User: Pricilla León NP 05/10/25 15:04 HPI - Anesthesia Eval Consult details Narrative: 75yo M for Upper Endoscopy and Colonoscopy s/p Urostomy Revision 05/08/25 with GA-ETT 7.5 History of bladder cancer, status post cystectomy and ileal conduit in 2020 in [place]. Multiple [facility] admits 02/2025-03/2025 with bleeding/clots from urostomy. Requiring blood transfusions. s/p cysto's/hydrocele repair (LMA 4). 02/2025 Left lower lung mass 4cm on CT - inpatient consult with rec's for outpatient f/u 6-8 weeks Aortic stenosis GARY 1.09 Anesthesia Pre-Procedure Meds Is the patient on any of the following meds?: GLP1/DPP4 PMFSH Active Problems Active Problems: All Active Problems Complication of urostomy (Acute) Urologic bleed (Acute) Low bicarbonate (Acute) Abnormal CT scan, chest (Acute) Mass of left lung (Acute) Bladder cancer (Acute) Past Medical History Medical History Aortic stenosis Complication of urostomy History of bladder cancer Abdominal distention Cirrhosis of liver HTN (hypertension) Acute hyponatremia Hydronephrosis Bladder cancer Asthma Diabetes Bladder cancer Incomplete emptying of bladder due to benign prostatic hyperplasia Complicated urinary tract infection Family History Family history of problems with anesthesia: No Surgical History Surgical History History of surgery History of ileal conduit History of Problems with Anesthesia: No Social History Social History Household Members: Spouse Housing: House Are you a primary health care marketing specialist to a significant other at home: No Do you presently have visiting nurse or other home services: No Alcohol intake: never Comment: bedside Patient Tobacco Use Status: Never used Tobacco Use of substances other than those prescribed or required for medical reasons: No Advance Directives: No Advance Directives Information Provided: Yes Advance Directives Date on File: 03/12/25 service: No Current occupational status: retired Meds Allergies Allergy/AdvReac Type Severity Reaction Status Date / Time aspirin Allergy Unknown Verified 04/28/25 15:00 Beta-Blockers AdvReac Unknown Verified 04/28/25 15:00 (Beta-Adrenergic Bloc ibuprofen AdvReac Unknown Verified 04/28/25 15:00 Home Medications ?Medication ?Instructions ?Recorded ?Confirmed ?Last Taken ?Type blood sugar diagnostic (FreeStyle #10 ea 04/18/21 01/05/24 Unknown History Lite Strips) montelukast 10 mg tablet 10 mg PO DAILY 04/18/21 05/10/25 05/07/25 History lancets 28 gauge (FreeStyle #100 ea 06/24/21 01/05/24 Unknown History Lancets) folic acid 1 mg tablet 1 mg PO DAILY 12/10/21 05/10/25 05/07/25 History albuterol sulfate 90 mcg/actuation 1 puff PO QID PRN Shortness Of 02/08/22 05/10/25 Unknown History aerosol inhaler Breath atorvastatin 20 mg tablet 10 mg PO BEDTIME 03/01/25 05/10/25 05/06/25 History ferrous sulfate 325 mg (65 mg 325 mg PO TID 03/01/25 05/10/25 05/07/25 History iron) tablet (iron) telmisartan 20 mg tablet 20 mg PO DAILY 03/01/25 05/10/25 05/07/25 History bisacodyl 5 mg tablet,delayed 5 mg PO DAILY constipation 03/21/25 05/10/25 05/07/25 History release (Dulcolax (bisacodyl)) ascorbic acid (vitamin C) 1,000 mg 1,000 mg PO DAILY 05/10/25 05/10/25 Unknown History tablet (Vitamin C) metformin 500 mg tablet 1,000 mg PO DAILY 05/10/25 05/10/25 Unknown History sitagliptin phosphate 50 mg tablet 50 mg PO DAILY 05/10/25 05/10/25 Unknown History (Januvia) vitamin B complex 1 cap PO DAILY 05/10/25 05/10/25 Unknown History Exam Height,Weight and Vital Signs: Height 5 ft 3 in Weight 64.5 kg Pertinent Lab Results Pertinent Lab Results: Laboratory Tests 04/28/25 15:21 WBC 7.1 Hgb 9.2 L Hct 26.7 L Plt Count 124 L Sodium 136 Potassium 4.4 Chloride 112 H Carbon Dioxide 20 L BUN 22 H Creatinine 1.29 Narrative Narrative: EKG 03/2025 Vent. Rate : 78 BPM Atrial Rate : 78 BPM P-R Int : 166 ms QRS Dur : 96 ms QT Int : 384 ms P-R-T Axes : 33 205 30 degrees QTcB Int : 437 ms Sinus rhythm with Premature atrial complexes Right superior axis deviation Incomplete right bundle branch block Septal infarct (cited on or before 23-Mar-2025) Abnormal ECG When compared with ECG of 23-Mar-2025 04:18, Premature atrial complexes are now Present QRS axis Shifted left Questionable change in initial forces of Septal leads ECHO 03/2025 Conclusions: - Normal left ventricular cavity size. The left ventricular systolic function is hyperdynamic. The visually estimated ejection fraction is >70%. - Spectral Doppler is indicative of a restrictive filling pattern. Elevated filling pressures. - Normal right ventricular cavity size and systolic function. - There is a bicuspid aortic valve. There is moderate calcification of the aortic valve. There is moderate aortic valve stenosis. AoV Pk Grad: 41.00 Aov Mn Grad: 27.00 GARY Cont.VTI: 1.09 CT chest wo IV con 02/2025 IMPRESSION: 1. Lobulated 4.8 x 4.3 x 4.2 cm in left lower lobe mass, highly suspicious for neoplasm. There is associated mediastinal lymphadenopathy, as described. 2. Atrophic right kidney with mild dilatation of the renal pelvis and ureter to the level of a urinary diversion. Findings are similar to the prior study and likely represent reflux. 3. Cirrhosis of the liver. Assessment and Plan Assessment Anesthesia Assessment: Chart Reviewed Final Anesthetic Review Family History of Problems with Anesthesia: No History of Problems with Anesthesia: No Documented by User: Reta Gray MD 05/12/25 11:48 [facility] Past Medical History Medical History Aortic stenosis Complication of urostomy History of bladder cancer Abdominal distention Cirrhosis of liver HTN (hypertension) Acute hyponatremia Hydronephrosis Bladder cancer Asthma Diabetes Bladder cancer Incomplete emptying of bladder due to benign prostatic hyperplasia Complicated urinary tract infection Surgical History Surgical History History of surgery History of ileal conduit Social History Social History Household Members: Spouse Housing: House Are you a primary health care marketing specialist to a significant other at home: No Do you presently have visiting nurse or other home services: No Alcohol intake: never Comment: bedside Patient Tobacco Use Status: Never used Tobacco Use of substances other than those prescribed or required for medical reasons: No Advance Directives: No Advance Directives Information Provided: Yes Advance Directives Date on File: 03/12/25 service: No Current occupational status: retired Meds Allergies Allergy/AdvReac Type Severity Reaction Status Date / Time aspirin Allergy Unknown Verified 04/28/25 15:00 Beta-Blockers AdvReac Unknown Verified 04/28/25 15:00 (Beta-Adrenergic Bloc ibuprofen AdvReac Unknown Verified 04/28/25 15:00 Home Medications ?Medication ?Instructions ?Recorded ?Confirmed ?Last Taken ?Type blood sugar diagnostic (FreeStyle #10 ea 04/18/21 01/05/24 Unknown History Lite Strips) montelukast 10 mg tablet 10 mg PO DAILY 04/18/21 05/10/25 05/07/25 History lancets 28 gauge (FreeStyle #100 ea 06/24/21 01/05/24 Unknown History Lancets) folic acid 1 mg tablet 1 mg PO DAILY 12/10/21 05/10/25 05/07/25 History albuterol sulfate 90 mcg/actuation 1 puff PO QID PRN Shortness Of 02/08/22 05/10/25 Unknown History aerosol inhaler Breath atorvastatin 20 mg tablet 10 mg PO BEDTIME 03/01/25 05/10/25 05/06/25 History ferrous sulfate 325 mg (65 mg 325 mg PO TID 03/01/25 05/10/25 05/07/25 History iron) tablet (iron) telmisartan 20 mg tablet 20 mg PO DAILY 03/01/25 05/10/25 05/07/25 History bisacodyl 5 mg tablet,delayed 5 mg PO DAILY constipation 03/21/25 05/10/25 05/07/25 History release (Dulcolax (bisacodyl)) ascorbic acid (vitamin C) 1,000 mg 1,000 mg PO DAILY 05/10/25 05/10/25 Unknown History tablet (Vitamin C) metformin 500 mg tablet 1,000 mg PO DAILY 05/10/25 05/10/25 Unknown History sitagliptin phosphate 50 mg tablet 50 mg PO DAILY 05/10/25 05/10/25 Unknown History (Januvia) vitamin B complex 1 cap PO DAILY 05/10/25 05/10/25 Unknown History Exam Narrative Narrative: EKG 03/2025 Vent. Rate : 78 BPM Atrial Rate : 78 BPM P-R Int : 166 ms QRS Dur : 96 ms QT Int : 384 ms P-R-T Axes : 33 205 30 degrees QTcB Int : 437 ms Sinus rhythm with Premature atrial complexes Right superior axis deviation Incomplete right bundle branch block Septal infarct (cited on or before 23-Mar-2025) Abnormal ECG When compared with ECG of 23-Mar-2025 04:18, Premature atrial complexes are now Present QRS axis Shifted left Questionable change in initial forces of Septal leads ECHO 03/2025 Conclusions: - Normal left ventricular cavity size. The left ventricular systolic function is hyperdynamic. The visually estimated ejection fraction is >70%. - Spectral Doppler is indicative of a restrictive filling pattern. Elevated filling pressures. - Normal right ventricular cavity size and systolic function. - There is a bicuspid aortic valve. There is moderate calcification of the aortic valve. There is moderate aortic valve stenosis. AoV Pk Grad: 41.00 Aov Mn Grad: 27.00 GARY Cont.VTI: 1.09 CT chest wo IV con 02/2025 IMPRESSION: 1. Lobulated 4.8 x 4.3 x 4.2 cm in left lower lobe mass, highly suspicious for neoplasm. There is associated mediastinal lymphadenopathy, as described. 2. Atrophic right kidney with mild dilatation of the renal pelvis and ureter to the level of a urinary diversion. Findings are similar to the prior study and likely represent reflux. 3. Cirrhosis of the liver. Airway Mallampati Class: II TM Dist: >3cm Neck ROM: Full Loose/Missing/Broken Teeth: No Heart: RRR Lungs: CTA Assessment and Plan Assessment Anesthesia Assessment: Anesthesia Plan Discussed Final Anesthetic Review NPO: Yes ASA Class: III Final Preanesthetic Review: Meds/Allgs Chart Reviewed, Consent Obtained/Reviewed and Anes Risks/Benef Reviewed Patient Risk: Intermediate Procedure Risk: Intermediate Anesthetic Plan Anesthetic Plan: MAC: Disposition: Standard PACU
[2025-05-12 10:42] VITALS: BMI 21.7
[2025-05-12 11:02] VITALS: BP 169/69; PULSE 68; RESP 16; TEMP 36.1; O2SAT 100
[2025-05-12 11:04] LABS: Glucose, Whole Blood 119 mg/dL (60-115)
[2025-05-12] MEDS: Lactated Ringers 1,000 ML 100 ML IVCONT (11:43)
--- NOTE | 2025-05-12 11:44 | MHC.SHP ---
Pre-Procedural Eval Section A - 24 Hr Update-Section A only Date of Service: 05/12/25 Section B - Complete if H&P > 30 days Chief Complaint: Hematuria Details of Present Illness: see H&P no changes Relevant Family History (Specify if Yes): No Relevant Social History: None Present Medications: see Short Stay Collaborative assessment Medical History: No relevant PMH History of Previous Operations: Relevant previous surgery/procedure and date(s) Allergies: Allergies Allergy/AdvReac Type Severity Reaction Status Date / Time aspirin Allergy Unknown Verified 04/28/25 15:00 Beta-Blockers AdvReac Unknown Verified 04/28/25 15:00 (Beta-Adrenergic Bloc ibuprofen AdvReac Unknown Verified 04/28/25 15:00 Review of Systems Sugical H&P ROS: Negative: Constitution, Cardiovascular, Respiratory, Neurological, Psychiatric, Hem-Onc, Allergic/Immunologic, Gastrointestinal, Genitourinary, Musculoskeletal, Integumentary, Endocrine and Eyes/Ears/Nose/Throat Exam Surgical H&P Exam: Normal: HEENT, Normal: Heart, Normal: Lungs, Normal: Extremities, Normal: Abdomen, Normal: Skin and Normal: Neurological Plan Diagnosis/Plan: Unchanged I have reviewed the history and physical and performed a pertinent physical examination on my patient. No changes have occurred unless specified. Time Spent With Patient Time: Total time managing care of this patient today ____ minutes.
[2025-05-12 12:39] VITALS: BP 123/60; PULSE 70; RESP 16; TEMP 36.4; O2SAT 97
[2025-05-12 12:54] VITALS: BP 170/82; PULSE 77; RESP 16; O2SAT 97
[2025-05-12 13:09] VITALS: BP 167/78; PULSE 79; RESP 17; TEMP 36.3; O2SAT 99
--- NOTE | 2025-05-13 00:31 | OP_ITS ---
DATE OF SERVICE: 05/12/2025 SURGEON: Joe Burnett MD INDICATIONS: Abnormal findings in stool. PREOPERATIVE DIAGNOSIS: POSTOPERATIVE DIAGNOSIS: PROCEDURE PERFORMED: Upper endoscopy, colonoscopy to the cecum with snare polypectomy. ESTIMATED BLOOD LOSS: COMPLICATIONS: ANESTHESIA: Monitored anesthesia care. ASSISTANTS: SPECIMENS: DESCRIPTION OF PROCEDURE: A history and physical performed. The risks and benefits of the procedure were explained to the patient. Informed consent was obtained. The patient was placed in the left lateral decubitus position. The Olympus video gastroscope was introduced into the esophagus, stomach, and duodenum. Examination was performed. The scope was removed. He was repositioned for colonoscopy. Digital rectal exam was performed and was found to be normal. The Olympus pediatric video colonoscope was introduced into the rectum and advanced to the cecum. The cecum was identified by transillumination, palpation, and identification of ileocecal valve. Examination was performed. The scope was removed. He tolerated both procedures well and was returned to recovery in stable condition. FINDINGS: Upper endoscopy: 1. Esophagus: There were 2 chains of grade 1-2 varices extending from 38 cm at the EG junction up to about 28 cm. There were no stigmata of recent hemorrhage. 2. Stomach: Stomach showed no gastric varices. There were early changes of portal hypertensive gastropathy. No ulcer was identified. 3. Duodenum: The bulb and 2nd portion were normal. Colonoscopy: Two polyps were identified and located in the colon. These were removed with a snare. The 1st was at 70 cm and was removed with a cold snare measuring approximately 6 mm. The 2nd was 10 mm polyp at 20 cm, which was removed with a hot snare and recovered via suction. No other polyps were identified. The quality of the prep was good. There was a single nonbleeding AVM at about 60 cm measuring approximately 10 mm. No therapy was performed. Retroflexed examination showed internal hemorrhoids. IMPRESSION: 1. Esophageal varices. 2. Portal hypertensive gastropathy. 3. Colon polyps. RECOMMENDATION: Follow up the biopsy results. MD PREETI Meyers/GARO / [id number]
== END 2025-05-12 14:00 | disposition home or self-care (01) ==
PROVIDERS: Visit Provider Internal Medicine Gastroenterology
PROC: (CPT 45385; principal; 2025-05-12 11:40)
DX: R19.5 Other fecal abnormalities (principal); D12.6 Benign neoplasm of colon, unspecified; K64.8 Other hemorrhoids; I85.00 Esophageal varices without bleeding; K76.6 Portal hypertension; K31.89 Other diseases of stomach and duodenum; E11.9 Type 2 diabetes mellitus without complications; I10 Essential (primary) hypertension; J45.909 Unspecified asthma, uncomplicated; K74.60 Unspecified cirrhosis of liver; Z79.84 Long term (current) use of oral hypoglycemic drugs; Z79.899 Other long term (current) drug therapy; Z88.6 Allergy status to analgesic agent
CPT/HCPCS: 45385; 43235; 82947; 88305; J2003; J2371; J2704; J3010

== ENCOUNTER 2025-05-15 10:02 | Outpatient (AMB) | payer OTHER, SELFPAY ==
--- OUTSIDE RECORDS SUMMARY | 2023-12-29 10:30 | XMS_ITS ---
Author Organization Darrian Ziegler III, MD Address [address] [place] [address] Care Team Providers Care Small Arms Repairer Name Role Phone Tony PINK, [facility] Primary Care Provider Dr. Darrian [...] Date Provider Diagnosis Darrian Ziegler III, MD [address] [place] [address] [place] [address] 12/29/2023 Darrian Ziegler HTN (hypertension) I 10 [...] Provider Name:Darrian Ziegler , 12/11/2025 02:00:00 PM, [address] [place] [address] DR [facility] [place], [address], Progress Notes * Zehra AGOSTO KDOB: (73 yo M)Acc No.[id number]:12/29/2023 Progress Notes Patient: Candelario Angelguykamala Sheehan Provider: Yahaira Ziegler MD :1950 A ge:73 Y S ex:Male Date:12/29/2023 Address:[address] [place], [place] [phone] Pcp:Hilary Jimenez MD Subjective: * Chief Complaints: [...] medical issues. Her into the emergency room [facility] December 22, 2023 for a urinary [...] ggressive non-smoker Quentin olivares was born in [facility] and now lives in [place], [place]. He is and has several children. [...] 30 L >40 - mg/dL L ab:Comprehensive [place]. Panel Fast (Order Date - 12/18/2023) (Collection [...] Range?Hemoglobin A1c %6.2H<6.0 - % ?Estimated Average Teojogq766- mg/dL ???Lab:Microalbumin, Random (Order Date - 12/18/2023) (Collection Date - 12/18/2023)?ValueReference Range?Creatinine Urine75.67- mg/dL ?Microalbumin Jwork171.0- mg/L?Microalbum Creatinine Ratio Ur199.5 H<30 - ug/mg [...] 0 12/29/2023 Generated for Ana cabrera/Linden/Nigel on: 1 11:40 AM EDT History and Physical Notes * [...]
--- OUTSIDE RECORDS SUMMARY | 2024-05-02 11:30 | XMS_ITS ---
Author Organization Darrian Ziegler III, MD Address [address] [place] [address] Care Team Providers Care Behavioral Sciences Instructor Name Role Phone Tony PINK, [facility] Primary Care Provider Dr. Darrian Smith III Unavailable [phone] Allergies Allergen (clinical drug ingredient) Drug/Non Drug [...] Date Provider Diagnosis Darrian Ziegler III, MD [address] [place] [address] [place], KAREN [address] 05/02/2024 Darrian Ziegler HTN (hypertension) I 10 [...] the liver has been done by his territory supervisor, Dr. Burnett. It showed thickening of the [...] Provider Name:Darrian Ziegler , 12/11/2025 02:00:00 PM, [address] [place] [address] [address], [place], [address], Progress Notes * Candelario AGOSTOchandu KDOB: (74 yo M)Acc No.[id number]:05/02/2024 Progress Notes Patient: Zehra GALICIA Provider: Yahaira Ziegler MD :1950 A ge:74 Y S ex:Male Date:05/02/2024 Address:[address] [place], [place] [phone] Pcp:Hilary Jimenez MD Subjective: * Chief Complaints: [...] born in [place] and now lives in [place], [place]. He is and has several children. [...] Temp:97.2, Wt-k.06. * P ast Orders: Lab:[facility] [place]. Dereke l Fast * Collection Date 04/15/2024 [...] the liver has been done by his territory supervisor, Dr. Burnett. It showed thickening of the [...] 0 05/02/2024 Generated for Printi ng/Faxing/eTransmitting on: 1 11:39 AM EDT History and Physical Notes * HPI (History of Present Illness) Category Sub-Category Detail Notes COVID-19 Screening Questions Have you had any new onset fever, chills, cough, congestion, sore throat, shortness of breath, muscle aches?: No Have you been exposed to the virus withi n the last 10 days?: No Have you travelled internationally in [facility] last 10 days?: No Have you been [...]
--- OUTSIDE RECORDS SUMMARY | 2024-12-27 13:00 | XMS_ITS ---
Author Organization Darrian Ziegler III, MD Address [address] [place] [address] Care Team Providers Care Survey Supervisor Name Role Phone Tony PINK, Hilary Primary Care Provider Dr. Darrian Smith III [phone] REASON FOR VISIT Followup Encounters Encounter Location Date Provider Diagnosis Darrian Ziegler III, MD [address] [place] [address] [place] [address] 12/27/2024 Darrian Ziegler Plan Of Treatment Next Appt Details Provider Name:Darrian Ziegler , 12/11/2025 02:00:00 PM, [address] [place] [address] [address], [place], [address], Progress Notes * Zehra AGOSTO KDOB: (75 yo M)Acc No.[id number]:12/27/2024 Progress Notes Patient: Zehra GALICIA Provider: Yahaira Ziegler MD :1950 A ge:74 Y S ex:Male Date:12/27/2024 Phone: Address:[address] [place] [address] Pcp:Hilary Jimenez MD Subjective: * Chief Complaints: [...] 12/27/2024 Generated for Ana cabrera/Linden/Nigel on: 1 11:39 AM EDT
--- OUTSIDE RECORDS SUMMARY | 2025-01-31 06:15 | XMS_ITS ---
Author Organization Darrian Ziegler III, MD Address [address] [place] [address] Care Team Providers Care Icing And Glaze Maker Name Role Phone Tony PINK, [facility] Primary Care Provider Dr. Darrian [...] Date Provider Diagnosis Darrian Ziegler III, MD [address] [place] [address] [address] [place], KAR[place] [address] 01/31/2025 Darrian Ziegler Urothelial carcinoma C68.9 ; [...] the liver has been done by his hvac project manager, Dr. Burnett. It showed thickening of [...] Provider Name:Darrian Ziegler , 12/11/2025 02:00:00 PM, [address] [place] [address], [address], Progress Notes * Zehra AGOSTO KDOB: (74 yo M)Acc No.[id number]:01/31/2025 Progress Notes Patient: Zehra GALICIA Provider: Yahaira Ziegler MD :1950 A ge:74 Y S ex:Male Date:01/31/2025 Phone: Address:[address] [place] [phone] Pcp:Hilary Jimenez MD Subjective: * Chief Complaints: [...] ggressive non-smoker Quentin olivares was born in [facility] and now lives in [place], [place]. He is and has several children. [...] the liver has been done by his hvac project manager, Dr. Burnett. It showed thickening of [...] 0 01/31/2025 Generated for Ana cabrera/Linden/Tiannasmitting on: 1 11:40 AM EDT History and [...]
--- OUTSIDE RECORDS SUMMARY | 2025-03-07 07:00 | XMS_ITS ---
Author Organization [facility] Address [address] [facility] [address] [place] [address] Care Team Providers Care Burial Vault Setter Name Role Phone Hilary Jimenez Primary Care Provider Unavailab Joe Hardy Jr REASON FOR VISIT abn findings in stool Encounters Encounter Location Date Provider Diagnosis [facility] Out[place] [address] [place] [id number] 03/07/2025 Joe Burnett Jr Plan Of Treatment No Information Progress Notes * Candelario AGOSTOchandu KDOB: (75 yo M)Acc No.[id number]:03/07/2025 EGD and COL/MAC Patient: Zehra GALICIA Provider: Symone Burnett MD :1950 A ge:74 Y S ex:Male Date:03/07/2025 Address:[address] [place] [phone] Pcp:Hilary Jimenez Subjective: * Chief Complaints: * [...] Burnett MD Date: 0 03/07/2025 Generated for Vishali deborah/Linden/eTransmitting on: 1 11:40 AM EDT
--- OUTSIDE RECORDS SUMMARY | 2025-04-04 07:10 | XMS_ITS ---
Author Organization [facility] Address [address] [place] [address] Care Team Providers Care Windchill Administrator Name Role Phone Hilary Jimenze Primary Care Provider Unavailab Joe Hardy Jr REASON FOR VISIT abnormal ct scan Encounters Encounter Location Date Provider Diagnosis [facility] Out[place] [address] [place] [id number] 04/04/2025 Joe Burnett Jr Plan Of Treatment No Information Progress Notes * Candelario AGOSTOchandu KDOB: (75 yo M)Acc No.[id number]:04/04/2025 EGD and COL/MAC Patient: Zehra GALICIA Provider: Symone Burnett MD :1950 A ge:75 Y S ex:Male Date:04/04/2025 Address:[address] [place] [phone] Pcp:Hilary Jimenez Subjective: * Chief Complaints: * [...] MD Date: 0 04/04/2025 Generated for Ana cabrera/Linden/eTransmitting on: 1 11:39 AM EDT
--- OUTSIDE RECORDS SUMMARY | 2025-05-04 06:30 | XMS_ITS ---
Author Organization Darrian Ziegler III, MD Address [address] [place] [address] Care Team Providers Care Compounder Flavorings Name Role Phone Tony PINK, [facility] Primary Care Provider Dr. Darrian [...] Provider Diagnosis Darrian Ziegler III, MD [address] [place] [address] [place] [address] 05/04/2025 Darrian Ziegler HTN (hypertension) I 10 [...] the liver has been done by his sample sawyer, Dr. Burnett. It showed thickening of the [...] Name:Darrian Ziegler , 12/11/2025 02:00:00 PM, [address] [place] [address], [address], Progress Notes * Zehra AGOSTO KDOB: (75 yo M)Acc No.[id number]:05/04/2025 Progress Notes Patient: Kana GALICIArichardra Sheehan Provider: Yahaira Ziegler MD :1950 A ge:75 Y S ex:Male Date:05/04/2025 Phone: Address:[address] [place] [address] Pcp:Hilary Jimenez MD Subjective: * Chief Complaints: [...] next week with Dr. Darrian Rowe at [facility]. On examination today, he still has a [...] June 2025 to spend the winter in [facility].. He says he will returrn in November [...] born in [place] and now lives in [place], [place]. He is and has several children. [...] the liver has been done by his sample sawyer, Dr. Burnett. It showed thickening of the [...] 0 05/04/2025 Generated for Ana cabrera/Linden/eTransmitting on: 1 11:40 AM EDT History and [...]
--- OUTSIDE RECORDS SUMMARY | 2025-05-05 04:10 | XMS_ITS ---
Author Organization [facility] Address [address] [place] [address] Care Team Providers Care Scrapper Name Role Phone Hilary Jimenez Primary Care Provider Unavailab Joe Hardy Jr [phone] REASON FOR VISIT abnormal ct scan Encounters Encounter Location Date Provider Diagnosis [facility] Outpatient [address] [place] [id number] 05/05/2025 Joe Burnett Jr Plan Of Treatment No Information Progress Notes * Candelario AGOSTOchandu KDOB: (75 yo M)Acc No.[id number]:05/05/2025 EGD and COL/MAC Patient: Zehra GALICIA Provider: Symone Burnett MD :1950 A ge:75 Y S ex:Male Date:05/05/2025 Address:[address] [place] [address] Pcp:Hilary Jimenez Subjective: * Chief Complaints: * [...] MD Date: 0 05/05/2025 Generated for Ana cabrera/Linden/eTransmitting on: 1 11:39 AM EDT
--- OUTSIDE RECORDS SUMMARY | 2025-05-12 07:40 | XMS_ITS ---
Author Organization [facility] Address [address] [place] [address] Care Team Providers Care Embossing Press Operator Molded Goods Name Role Phone Hilary Jimenez Primary Care Provider Unavailab Joe Hardy Jr REASON FOR VISIT abnormal ct scan Medications Medication SIG (Take, Route, Frequency, Duration) Notes Start Date End Date Status metFORMIN HCl 500 MG TAKE 2 TABLETS BY M OUTH EVERY DAY Oral for 90 Active Albuterol Sulfate 108 (90 Base) MCG/ACT 1 puff as needed Inhalation every 4 hrs Active Atorvastatin Calcium 10 MG 1 tablet Oral ly Once a day for 30 day(s) Active Montelukast Sodium 10 MG 1 tablet Orally Once a day for 30 day(s) Active Folic Acid 1 MG Oral for 30 Ac tive Iron (Ferrous Sulfate) 325 (65 Fe) MG 1 tablet Orally Three times a Week for 30 day(s) Active Vitamin C 1000 MG 1 tablet Orally Once a day for 30 day(s) Active Telmisartan 20 MG 1 tablet Orally Once a day Active Dulcolax Active Januvia 50 MG as directed Orally O nce a day Active Vitamin B Complex - as directed Orally Active Encounters Encounter Location Date Provider Diagnosis [facility] Outpatient [address] [place], [place] [phone] 05/12/2025 Joe Burnett Jr Plan Of Treatment No Information Progress Notes * Zehra AGOSTO KDOB: (75 yo M)Acc No.[id number]:05/12/2025 EGD and COL/MAC Patient: Zehra GALICIA Provider: Symone Burnett MD :1950 A ge:75 Y S ex:Male Date:05/12/2025 [facility] Pcp:Hilary Jimenez Subjective: * Chief Complaints: * [...] Symone Burnett MD Date: Generated for Ana cabrera/Linden/Nigel on: 11:39 AM EDT
[2025-05-15 10:06] VITALS: BP 138/60; PULSE 80; O2SAT 99; BMI 22.9
--- NOTE | 2025-05-15 10:06 | A.OFFVIS_ITS ---
Vital Signs 05/15/25 10:06 Height 5 ft 2 in Weight 125 lb BMI 22.9 BP 138/60 Blood Pressure Location Rt brachial Position Sitting Pulse 80 Pulse Source Pulse Oximeter Pulse Oximetry (%) 99 Oxygen Delivery Method Room Air Intake Visit Reasons: Lung Mass Allergies aspirin Allergy (Verified 04/28/25 15:00) Unknown Beta-Blockers (Beta-Adrenergic Bloc Adverse Reaction (Verified 04/28/25 15:00) Unknown ibuprofen Adverse Reaction (Verified 04/28/25 15:00) Unknown HPI HPI Lung Mass: Details: 74-year-old gentleman, nonsmoker, these underlying asthma, hypotension, bladder cancer status post resection/urostomy hospitalized in February of 2025 with malaise likely secondary to UTI. ER workup included CT of the chest that showed left- sided mass like density for which pulmonary evaluation was requested. Patient denies prior family or personal history of lung disease except asthma. He denies exposure to industrial dusts. He denies any pulmonary related concerns or complaints. After hospitalization patient had repeat CT scan in the end of April of 2025 showing complete resolution of previously noted pulmonary densities. [facility] Medical History (Updated 05/15/25 @ 10:23 by Vimal Ferrer MD) Aortic stenosis Complication of urostomy History of bladder cancer Abdominal distention Cirrhosis of liver HTN (hypertension) Acute hyponatremia Hydronephrosis Bladder cancer Asthma Diabetes Bladder cancer Incomplete emptying of bladder due to benign prostatic hyperplasia Complicated urinary tract infection Surgical History History of surgery History of ileal conduit Social History Household Members: Spouse Housing: House Are you a primary rn palliative care to a significant other at home: No Do you presently have visiting nurse or other home services: No Alcohol intake: never Comment: bedside Patient Tobacco Use Status: Never used Tobacco Advance Directives Date on File: 03/12/25 service: No Current occupational status: retired Review of Systems Const Denies daytime sleepiness, Denies excessive sweating, Denies fatigue, Denies fever(s), Denies lethargy, Denies malaise, Denies night sweats, Denies snoring and Denies weight loss Eyes Denies blurry vision and Denies itchy eyes ENT Denies nasal congestion, Denies post nasal drip, Denies sinus pain, Denies sinus pressure and Denies other ( Thrush) Card Denies chest pain, Denies pedal edema, Denies dyspnea, Denies orthopnea and Denies paroxysmal nocturnal dyspnea Resp Denies cough, Denies hemoptysis, Denies excessive phlegm production, Denies dyspnea, Denies snoring and Denies wheezing GI Denies abdominal pain and Denies heartburn Musc Denies myalgias, Denies arthralgias and Denies joint swelling Skin/Breast Denies rash Neuro Denies memory loss and Denies seizure-like activity Psych Denies abnormal sleep pattern, Denies anxiety and Denies memory loss Endo Denies excessive sweating, Denies fatigue and Denies heat intolerance Adonis/Lymph Denies easy bruising Aller/Immun Denies itchy eyes, Denies seasonal rhinorrhea and Denies wheezing Physical Exam Vital Signs: Last Vital Signs Pulse 80 05/15/25 10:06 BP 138/60 05/15/25 10:06 Pulse Ox 99 05/15/25 10:06 Oxygen Delivery Method Room Air 05/15/25 10:06 BMI result Body Mass Index 22.9 Const General: no acute distress and alert Nutritional Appearance: not obese Orientation/consciousness: Other orientation findings ( oriented) HEENT Head: Yes atraumatic Eyes General: appearance normal, both eyes and all related structures Sclerae: sclerae normal EOM: EOMs intact bilaterally Neck Neck: Yes supple Lymphatic: no lymphadenopathy noted Resp Effort & Inspection: normal respiratory effort and no use of accessory muscles Auscultation: clear to auscultation bilaterally Cardio Rate: regular rate Rhythm: regular rhythm Heart sounds: no gallops, no murmurs and no rubs Skin General skin exam: other ( warm) Extrem General: No clubbing, No cyanosis and No edema Assessment & Plan Assessment & Plan (1) Abnormal CT scan, chest: Code(s): R93.89 - Abnormal findings on diagnostic imaging of other specified body structures Category: Medical Plan: Results of follow-up CT chest from end april reviewed, complete resolution of previously noted left lower lobe lesion, likely previous infectious process. At this time does not require further imaging follow-up. Coding Level of Care Code Est Pt Level 3 (69001) Diagnoses Abnormal CT scan, chest R93.89
--- OUTSIDE RECORDS SUMMARY | 2025-05-15 11:39 | XMS_ITS | Patient Health Record ---
Author Organization [facility] Address [address] [place] [address] Care Team Providers Care Earth Observations Chief Scientist Name Role Phone Hilary Boss Primary Care Provider Unavailab Joe Hardy Jr Unavailable Allergies Allergen (clinical drug ingredient) Drug/Non Drug Allergy documented on EMR Reaction Allergy Type Onset Date Status ibuprofen Ibuprofen Unknown Drug Allergy Active aspirin Aspirin Unknown Drug Allergy Active Substance with beta adrenergic receptor antagonist mechanism of action (substance) beta blockers (uncoded) Unknown Allergy Active Results Component Value Reference Range Notes Glucose, Whole Blood (Not ye t reviewed by provider) Interpretation: Performing Lab:[facility], [address] [place] [id number] Notes/Report: Glucose, Whole Blood 119 60-115 mg/dL METER # : [id number] Reason For Referral Referring Provider First Name Hilary Referring Provider Last Name Tony Referring Provider Speciality Internal M edicine Referred Organization [facility] Referred Provider Joe Echavarria Jr Referred Address [address],[place], [place],[address], Referred Provider Specialty Gastroentero logy General Notes Brooklyn Barkley 2024 10:14:44 AM > REQUESTED HERACLIO REFEFFAL FROM DR BOSS'S OFFICE FOR VISIT WITH DR ECHAVARRIA ON 02-15-25, Brooklyn Barkley 02/15/2025 11:39:50 AM >no referral required since patient is in the same wiyot of care Referral Priority Routine Medications Medication SIG (Take, Route, Frequency, Duration) Notes Start Date End Date Status metFORMIN HCl 500 MG TAKE 2 TABLETS BY M OUTH EVERY DAY Oral for 90 Active Vitamin B Complex - as directed Orally Active Iron (Ferrous Sulfate) 325 (65 Fe) MG 1 tablet Orally Three times a Week for 30 day(s) Active Vitamin C 1000 MG 1 tablet Orally Once a day for 30 day(s) Active Telmisartan 20 MG 1 tablet Orally Once a day Active Dulcolax Active Januvia 50 MG as directed Orally O nce a day Active Albuterol Sulfate 108 (90 Base) MCG/ACT 1 puff as needed Inhalation every 4 hrs Active Atorvastatin Calcium 10 MG 1 tablet Oral ly Once a day for 30 day(s) Active Montelukast Sodium 10 MG 1 tablet Orally Once a day for 30 day(s) Active Folic Acid 1 MG Oral for 30 Ac tive Immunizations Vaccine Route Administration Date Status Comme [...] Risk Notes Problem Oesophageal varices without bleeding (02696064) Secondary esophageal varices without bleeding (I85.10) Active confirmed Problem Portal hypertension (84686543) Portal hypertension (K76.6) Active confirmed Problem 294231570 Liver mass (R16.0) Active confirmed Problem 431071016 Liver lesion (K76.9) Active confirmed Problem [id number] Abnormal CT scan, liver (R93.2) Active confirmed Problem 47035328 Cirrhosis of liver without ascites, unspecified hepatic cirrhosis type (K74.60) Active confirmed Vital Signs Temperature 97.7 degrees Fahrenheit 02/15/2025 Blood pressure diastolic 01 mm Hg 02/15/2025 Height 62 in 02/15/2025 Blood pressure systolic 001 mm Hg 02/15/2025 Weight 120 lbs 02/15/2025 BMI 21.95 kg/m2 02/15/2025 Encounters Encounter Location Date Provider Diagnosis [facility] Outpatient [address] [place] [id number] 05/12/2025 Joe Echavarria Jr [facility] [address] [place], [place] [address] 02/15/2025 Joe Echavarria Jr Abnormal findings in stool R19.5 [facility] [address] [facility] [place], [place] [address] 12/26/2024 Joe Echavarria Jr [facility] [address] [place], [place] [address], [place] [address] 02/28/2025 Joe Echavarria Jr [facility] [address] [place], [place] [address], [place] [address] 02/28/2025 Joe Echavarria Jr [facility] [address] [facility] [place] [address] 03/30/2025 Joe Echaavrria Jr [facility] [address] [place], [place] [address], [place] [address] 04/24/2025 Joe Echavarrai Jr [facility] [address] [place], [place] [address] [place] [address] 05/04/2025 Joe Echavarria Jr Assessments Encounter Date [...] PROTHROMBIN TIME (PT, INR) 03/17/2022 ALPHA-FETOPROTEIN,TUMOR MARKER 4 MITOCHONDRIAL AB 03/17/2022 SMOOTH MUSCLE ANTIBODIES 03/17/2022 MRI ABD W&WO CONTRAST 01/28/2024 MRI ABD W&WO CONTRAST 12/17/2023 US ABDOMEN COMP WITH ELASTOGRAPHY 2021 Alpha Fetoprotein 12/17/2023 Glucose, Whole Blood 05/12/2025 Hepatitis A,B,C Profile 12/17/2023 MR abdomen wo/w con 04/27/2024 Future Test Test Name Order Date UPPER GI ENDOSCOPY 03/05/2023 UPPER GI ENDOSCOPY 02/15/2025 COLONOSCOPY 02/15/2025 Insurance Providers Payer Name Payer Address Payer Phone Subscriber Number Group Number Insured Name Patient Relationship to Insured Coverage Start Date Coverage End Date [employer] [facility] [address] [place] [phone] [id number] Alexia Agosto Self - patient is the insured MEDICAID [facility] [address] [place] [phone] [id number] Alexia Agosto Self - patient is the insured Medical (General) History Medical History History ICD Code diabetes asthma Hypertension Bladder cancer Cirrhosis, likely secondary to fatty lonnie er, compensated Surgical History Surgery Date(Month/Year) bladder cancer Radical cystectomy, ileal conduit Hospitalization History Reason Date(Month/Year)
--- OUTSIDE RECORDS SUMMARY | 2025-05-15 11:40 | XMS_ITS | Patient Health Record ---
Author Organization Darrian Ziegler III, MD Address [address] [place] [address] [place] [address] Care Team Providers Care Sleeping Car Porter Name Role Phone Tony PINK, [facility] Primary Care Provider Dr. Darrian Smith III Unavailable Allergies Allergen (clinical drug ingredient) Drug/Non Drug Allergy documented on EMR Reaction Allergy Type Onset Date Status aspirin Aspirin Unknown Drug Allergy Active Motrin Unknown Drug Allergy Active Results Component Value Reference Range Notes Creatinine GFR POC Reviewed date:06/13/2024 05:47:07 AM Interpretation: Performing Lab:[facility], [address] [place] [address] Notes/Report: [id number] 0.78 >60 0915 HO.POHJ Creatinine POC 0.8 0.5-1.4 mg/dL GFR POC > 60 Chronic Kidney Disease: Estimated GFR < 60 mL/min/1.73m2 Severe Kidney Disease: Estimated GFR < 15 mL/min/1.73m2 CT urogram Reviewed date:08/01/2024 02:53:04 PM Interpretation: Performing Lab: Notes/Report: [address] [address] [address] Scan Report Signed Patient: Alec Agosto MR#: [id number] : 1950 Acct:[id number] Age/Sex: 74 / M ADM Date: 05/16/24 Loc: HO.CT Attending Dr: Mauro Narayan MD Ordering Physician: Mauro Narayan MD Date of Service: 05/16/24 Procedure(s): CT urogram Accession Number(s): [id number] cc: Mauro Narayan MD; Darrian Ziegler MD [...] by: Jumana Stevens MD 06/22/2024 08:19 PM [facility] Dictated By: Jumana Stevens MD Signed By: <Electronically signed by Jumana Stevens MD in OV> 06/22/242018 DD/ 3 TD/TT: 05/16/24939 Blue Leather Sorter: ROMAN [address] [address] [address] Scan Report Signed Patient: Alec Agosto MR#: [id number] : 1950 Acct:[id number] Age/Sex: 74 / M ADM Date: 05/16/24 Loc: HO.CT Attending Dr: Emiliana Blankenship MD Ordering Physician: Mauro Narayan MD Date of Service: 05/16/24 Procedure(s): CT urogram Accession Number(s): [id number] cc: Mauro Narayan MD; Darrian Ziegler MD [...] by: Jumana Stevens MD 06/22/2024 08:19 PM [facility] Dictated By: Jumana Stevens MD Signed By: <Electronically signed by Jumana Stevens MD in OV> 06/22/242018 DD/ 3 TD/TT: 05/16/24939 Blue Leather Sorter: ROMAN Complete Blood Count Auto Di ff Reviewed date:01/27/2025 01:46:19 PM Interpretation: Performing Lab:[facility], [address] [place] [address] Notes/Report: White Blood Count 7.4 4.8-10.8 X10*3/uL [...] 0.000 0.0-0.012 X10*3/uL C ORRECTED REPORT Comprehensive [place]. Panel Fa st Reviewed date:01/27/2025 01:46:19 PM Interpretation: Performing Lab:[facility], [address] [place] [address] Notes/Report: Sodium 138 135-145 mmol/L Potassium 4.2 [...] Panel Reviewed date:01/27/2025 01:46:19 PM Interpretation: Performing Lab:[facility], [address] [place] [address] Notes/Report: Triglycerides 95 <150 mg/dL Desirable Triglyceride: [...] Antigen Reviewed date:01/27/2025 01:46:19 PM Interpretation: Performing Lab:[facility], [address] [place] [phone] Notes/Report: Prostate Specific Antigen < 0.10 <0.05-4.0 ng/mL PSA methodology: Rodriguez Alinity i Chemiluminescent Microparticle Immunoassay (CMIA) SLIDE REVIEW Reviewed date:01/27/2025 01:46:19 PM Interpretation: Performing Lab:[facility], [address] [place] [address] Notes/Report: SLIDE REVIEW VERIFIED Complete Blood Count Auto Di ff Reviewed date:01/27/2025 01:46:19 PM Interpretation: Performing Lab:[facility], [address] [place] [address] Notes/Report: White Blood Count 7.4 4.8-10.8 X10*3/uL [...] yet r eviewed by provider) Interpretation: Performing Lab:[facility], [address] [place] [address] Notes/Report: Alpha Fetoprotein 7.9 <6.1 ng/mL This test was performed using the Sylvie Kinsey chemiluminescent method. Values obtained from different assay methods cannot be used interchangeably. AFP levels, regardless of value, should not be interpreted as absolute evidence of the presence or absence of disease. THIS TEST WAS PERFORMED AT: [facility] [address] [place] [phone] TORSTEN GARG MD Complete Blood Count Auto Di ff Reviewed date:04/17/2025 09:18:18 AM Interpretation: Performing Lab:[facility], [address] [place] [address] Notes/Report: White Blood Count 5.9 4.8-10.8 X10*3/uL [...] NRBC Abs Auto 0.000 0.0-0.012 X10*3/uL Comprehensive [place]. Panel Fa st Reviewed date:04/17/2025 09:18:18 AM Interpretation: Performing Lab:[facility], [address] [place] [address] Notes/Report: Sodium 137 135-145 mmol/L Potassium 4.5 [...] Ferritin Reviewed date:04/17/2025 09:18:18 AM Interpretation: Performing Lab:[facility], [address] [place] [phone] Notes/Report: Ferritin 911 20-250 ng/mL Lipid Panel Reviewed date:04/17/2025 09:18:18 AM Interpretation: Performing Lab:[facility], [address] [place] [address] Notes/Report: Triglycerides 104 <150 mg/dL Desirable Triglyceride: [...] Antigen Reviewed date:04/17/2025 09:18:18 AM Interpretation: Performing Lab:[facility], [address] [place] [address] Notes/Report: Prostate Specific Antigen < 0.10 <0.05-4.0 ng/mL PSA methodology: Rodriguez Maria L i Chemiluminescent Microparticle Immunoassay (CMIA) Folate Reviewed date:04/17/2025 09:18:18 AM Interpretation: Performing Lab:[facility], [address] [place] [phone] Notes/Report: Folate 16.3 > or = 4.0 ng/mL Reference Values: > or = 4.0 ng/mL < 4.0 ng/mL suggests folate deficiency Methotrexate, aminopterin and folinic acid (leucovorin) are chemotherapeutic agents whose molecular structures are similar to folate; therefore, the Respiratory Care Program Director folate assay cannot be used for patients [...] Status W/U Status Risk Notes Problem Asthma (833789514) Asthma (J45.909) Active confirmed He repo rts no difficulty with breathing since his last visit. He tolerated the hot weather of the summer without difficulty. Problem Anemia (639370932) Anemia (D64.9) Active confirmed His hemat ocrit is slightly lower, but he had a recent episode of bleeding which required hospitalization. His ferritin is rising. His iron supplementation has been stopped. This will be observed. Problem Diabetes mellitus (68082077) Diabetes mellitus (E11.9) Active confirmed Is A1c was quite low and primary care has discontinued his ddiabetic medications. His current fasting glucose is 111. Problem 205423608 Mixed hyperlipidemia (E78.2) Active confirmed Is currently stable and no change in his treatment is needed. Problem Hypertension (39129368) HTN (hypertension) (I10) Active confirmed His blood pressure is currently stable at 137/49 and no change in his regimen is needed today. Problem Hypothyroid (43116226) Hypothyroid (E03.9) Active confirmed He remains euthyroid. No change in his medication was needed. Problem 237385372 Urothelial carcinoma (C68.9) Active confirmed There is no sig n of recurrent disease at this time. The ileostomy is functioning well.He was hospitalized recently for bleeding into the urostomy but this has resolved and no serious cause was found. Problem 3266420325775 Benign prostatic hyperplasia with lower urinary tract symptoms (N40.1) Active confirmed He rises from sleep once or twice a night to urinate depending upon fluid intake. We reviewed lifestyle modification she could make to reduce nocturia. Problem High cholesterol (93111878) High cholesterol (E78.00) Active confirmed Problem 053713596 Ileostomy in place (Z93.2) Active confirmed The urine in t he bag appeared to be completely normal. He has had no bleeding. The ostomy is functioning well. Problem 54087840 Cirrhosis of liver without ascites, unspecified hepatic [...] obtained.A repeat MRI has been scheduled. Problem 836480389 History of tuberculosis (Z86.11) Active confirmed Vital Signs Heart Rate 71 /min 05/04/2025 Temperature 98.4 degrees Fahrenheit 05/04/2025 Blood pressure diastolic 49 mm Hg 05/04/2025 Height 61 in 05/04/2025 Blood pressure systolic 137 mm Hg 05/04/2025 Weight 128 lbs 05/04/2025 BMI 24.18 kg/m2 05/04/2025 Encounters Encounter Location Date Provider Diagnosis Darrian Ziegler III, MD [address] [place] [address] [address] [place] [address] 01/31/2025 Darrian Ziegler Urothelial carcinoma C68.9 ; Cirrhosis of liver without ascites, unspecified hepatic cirrhosis type K74.60 ; HTN (hypertension) I10 ; Hypothyroid E03.9 ; Anemia, unspecified type D64.9 ; Benign prostatic hyperplasia with lower urinary tract symptoms N40.1 ; Ileostomy in place Z93.2 and Diabetes mellitus E11.9 Darrian Ziegler III, MD [address] [place] [address] [address] [place] [address] 05/04/2025 Darrian Ziegler HTN (hypertension) I 10 [...] the liver has been done by his stitching department supervisor, Dr. Burnett. It showed thickening of [...] the liver has been done by his stitching department supervisor, Dr. Burnett. It showed thickening of [...] C) 12/29/2023 PROFILE, FASTING (COMPREHENSIVE METABOLI C) 05/04/2025 PROFILE, FASTING (COMPREHENSIVE METABOLI C) 01/31/2025 PROFILE, RANDOM (COMPREHENSIVE METABOLIC ) 10/15/2021 PROFILE, RANDOM (COMPREHENSIVE METABOLIC ) 05/13/2022 PROFILE, RANDOM (COMPREHENSIVE METABOLIC ) 11/12/2021 PROFILE, RANDOM (COMPREHENSIVE METABOLIC ) 01/12/2023 HEMOGLOBIN A1C (GLYCOHEMOGLOBIN) 023 LIPID PANEL 05/19/2023 LDH 10/15/2021 FERRITIN 11/12/2021 FERRITIN 10/15/2021 FOLATE 11/12/2021 FOLATE 01/12/2023 PSA, TOTAL 01/31/2025 PSA, TOTAL 05/02/2024 PSA, TOTAL 05/19/2023 CBC w DIFF 05/19/2023 CBC w DIFF 01/12/2023 CBC w DIFF 01/31/2025 CBC w DIFF 05/13/2022 CBC w DIFF 05/04/2025 CBC w DIFF 10/15/2021 CBC w DIFF 11/12/2021 SED RATE (ESR) 10/15/2021 RETICULOCYTE COUNT,CORRECTED 11/12/2021 [...] Provider Name:Darrian Ziegler , 12/11/2025 02:00:00 PM, [address] [place] [address] DR, [facility] [address], [place], [address], Insurance Providers Payer Name Payer Address Payer Phone Subscriber Number Group Number Insured Name Patient Relationship to Insured Coverage Start Date Coverage End Date [facility] [address] [place] [address] [id number] Alexia Agosto Self - patient is the insured MEDICAID [facility] [address] [place] [id number] Alexia Agosto Self - patient is the insured MEDICARE [employer] [address] [place] [address] [id number] Alexia Agosto Self - patient is the [...]
== END 2025-05-15 10:24 | disposition home or self-care (01) ==
LOC: HO.HPS 10:02
PROVIDERS: Visit Provider Internal Medicine Pulmonary Disease
DX: R93.89 Abnormal findings on diagnostic imaging of other specified body structures (principal)
CPT/HCPCS: 99213

== ENCOUNTER → 2025-05-15 10:02 | Outpatient (BNVA) | payer OTHER, SELFPAY | PROVIDERS: Visit Provider Internal Medicine Pulmonary Disease | DX: R93.89 Abnormal findings on diagnostic imaging of other specified body structures (principal) | CPT/HCPCS: 99212 ==

== ENCOUNTER 2025-05-18 14:33 | Outpatient (AMB) | payer OTHER, SELFPAY ==
--- NOTE | 2025-05-18 14:33 | MHC.OFFVIS ---
Intake Visit Reasons: Revision ileal stoma f/u Intake Note: Patient is Present for Post Op for Revision Ileal Urology Med: none Antibiotic Allergy: None Blood Thinner: None Fabric Pattern Grader Required: No Accompanied by: Spouse Allergies aspirin Allergy (Verified 05/18/25 14:34) Unknown Beta-Blockers (Beta-Adrenergic Bloc Adverse Reaction (Verified 05/18/25 14:34) Unknown ibuprofen Adverse Reaction (Verified 05/18/25 14:34) Unknown HPI Comments Details: Allen is a very pleasant [place] male. He is a patient of Dr Jimenez. He is seen for the following urologic conditions - invasive bladder cancer - recurring UTI Follow-up from hospital Repair complete Leaking resolved Stoma well-healed Judge catheter removed And we will give low-dose antibiotic for 2 days Did discuss different bags and stoma wafers Message given to nursing who will check with 180 Creatinine 1.2 On methenamine with vitamin-C to minimize urinary colonization Here for surveillance imaging HbA1c 8.4 down to 6.1 Imaging with right mild hydro Low folate consistent with ileal diversion and is on supplementation Ileostomy management - Wafer - Securi-T [facility] [id number] - Bag 45mm [id number] - Sponges 4x4 [facility] [id number] - Stoma Paste - Povidine Solution IP 10% Invasive bladder cancer T4N1M0 cysto-prostatectomy with adjuvant chemotherapy May 2020 Had been diagnosed with BPH. Went for treatment in [facility]. Prostate resection was performed. Pathology showed invasive high-grade bladder cancer. Subsequently he underwent cysto-prostatectomy May 2020. Pathology T4N2M0 Adjuvant chemotherapy completed Follow-up staging imaging with PET CT negative October 2020 Well-maintained stoma Occasional UTI Imaging - 03/30 CT moderate right hydronephrosis but no timoteo recurrence - 10/01 CT from [facility] with mild right hydronephrosis, question of prior pyelonephritis on left kidney - 11/29 CT scan mild right hydronephrosis, no timoteo recurrence, liver scarring - 12/30 CT scan continue mild right hydronephrosis, no timoteo recurrence, liver scarring consistent with cirrhosis - 05/02 CT scan continue mild right hydronephrosis, some scarring on right kidney, no timoteo recurrence, liver scarring consistent with cirrhosis Laboratories - 03/30 Cr 1.03, 11/29 1.5, 12/31 1.2 Plan for repeat imaging every 6 months for 5 years [facility] Medical History (Updated 05/18/25 @ 15:07 by Mauro Narayan MD) Aortic stenosis Complication of urostomy History of bladder cancer Abdominal distention Cirrhosis of liver HTN (hypertension) Acute hyponatremia Hydronephrosis Bladder cancer Asthma Diabetes Bladder cancer Incomplete emptying of bladder due to benign prostatic hyperplasia Complicated urinary tract infection Surgical History History of surgery History of ileal conduit Social History Household Members: Spouse Housing: House Are you a primary director of home care hospice to a significant other at home: No Do you presently have visiting nurse or other home services: No Alcohol intake: never Comment: bedside Patient Tobacco Use Status: Never used Tobacco Advance Directives Date on File: 03/12/25 service: No Current occupational status: retired Review of Systems Const Denies chills and Denies fever(s) Card Reports no additional complaints and Denies syncope Resp Denies cough GI Denies abdominal pain and Denies heartburn Reports as per HPI and Denies change in libido Neuro Denies syncope Psych Denies change in libido Endo Denies change in libido Physical Exam Const General: cooperative, healthy appearing, comfortable and no acute distress Orientation/consciousness: patient oriented x3 HEENT Face and sinus: Yes normal facial exam Mouth: moist mucous membranes Neck Neck: Yes normal visual inspection, Yes full ROM and Yes trachea midline Chest Chest palpation & inspection: normal inspection of the chest Resp Effort & Inspection: normal respiratory effort, able to speak in complete sentences and no respiratory distress GI Inspection: Yes normal to inspection Back/Spine/Pelvis Cervical Spine: normal cervical lordosis Thoracic/Lumbar Spine: thoracic and lumbar spine normal to inspection Skin General skin exam: no rashes or lesions noted Neuro General: patient oriented x3, gait normal, tone normal and moves all extremities Extrem General: Yes normal to inspection and Yes capillary refill normal Assessment & Plan Assessment & Plan (1) Bladder cancer: Code(s): C67.9 - Malignant neoplasm of bladder, unspecified Category: Medical Qualifiers: Bladder location: unspecified site Qualified Code(s): C67.9 - Malignant neoplasm of bladder, unspecified (2) 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 While every effort has been made to ensure accuracy asbestos worker errors may have been included. Imaging studies, laboratory and physical exam results were discussed and reviewed in detail. No major barriers to patient understanding were identified. An opportunity to ask questions regarding the treatment plan was provided. All questions were answered. The patient expressed understanding and agreement with the above treatment plan. The patient is aware they should contact our office by phone for worsening of their current condition or the appearance of new urologic symptoms. Compliance is encouraged with any medications and followup testing that is ordered. It is a privilege to participate in the urologic care of your patient. If you have any questions or concerns regarding treatment for the above conditions, or other urologic issues, please do not hesitate to contact me. The office telephone contact is [phone]. 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
== END 2025-05-18 15:12 | disposition home or self-care (01) ==
LOC: HO.HUSH 14:33
PROVIDERS: PCP Internal Medicine; Visit Provider Urology
DX: C67.9 Malignant neoplasm of bladder, unspecified (principal); N99.528 Other complication of incontinent external stoma of urinary tract
CPT/HCPCS: 99024

== ENCOUNTER → 2025-05-18 14:33 | Outpatient (BNVA) | payer OTHER, SELFPAY | PROVIDERS: PCP Internal Medicine; Visit Provider Urology | DX: C67.9 Malignant neoplasm of bladder, unspecified (principal) | CPT/HCPCS: 81003 ==

== ENCOUNTER 2025-06-06 14:01 | Outpatient (REF) | payer OTHER, SELFPAY ==
--- OUTSIDE RECORDS SUMMARY | 2023-12-29 10:30 | XMS_ITS ---
Author Organization Darrian Ziegler III, MD Address [address] [place] [address] Care Team Providers Care [facility] Name Role Phone Tony PINK, [facility] Primary Care Provider Dr. Darrian Smith [...] Date Provider Diagnosis Darrian Ziegler III, MD [address] [place] [address] [place] [address] 12/29/2023 Darrian Ziegler HTN (hypertension) I 10 [...] Months, Reason: OV Provider Name:Darrian Ziegler , 06/13/2025 02:15:00 PM, [address] [place] [address] [address], [place], [address], Provider Name:Darrian Ziegler , 12/11/2025 02:00:00 PM, [address] [place] [address] [address], [place], [address], Progress Notes * Zehra AGOSTO KDOB: (73 yo M)Acc No.[id number]:12/29/2023 Progress Notes Patient: Zehra Angel Provider: Yahaira Ziegler MD :1950 A ge:73 Y S ex:Male Date:12/29/2023 Address:[address] [place], [place] [phone] Pcp:Hilary Jimenez MD Subjective: * Chief Complaints: [...] medical issues. Her into the emergency room [facility] December 22, 2023 for a urinary [...] ggressive non-smoker Quentin olivares was born in [facility] and now lives in [place], [place]. He is and has several children. [...] 30 L >40 - mg/dL L ab:Comprehensive [place]. Panel Fast (Order Date - 12/18/2023) (Collection [...] Range?Hemoglobin A1c %6.2H<6.0 - % ?Estimated Average Guctmjo772- mg/dL ???Lab:Microalbumin, Random (Order Date - 12/18/2023) (Collection Date - 12/18/2023)?ValueReference Range?Creatinine Urine75.67- mg/dL ?Microalbumin Swvty142.0- mg/L?Microalbum Creatinine Ratio Ur199.5 H<30 - ug/mg [...] 12/29/2023 Generated for Ana cabrera/Linden/eTarmanismitting on: 1 06:28 PM EDT History and Physical Notes * [...]
--- OUTSIDE RECORDS SUMMARY | 2024-05-02 11:30 | XMS_ITS ---
Author Organization Darrian Ziegler III, MD Address [address] [place] [address] Care Team Providers Care Chicken Raiser Name Role Phone Tony PINK, [facility] Primary Care Provider Dr. Darrian Smith III Unavailable [phone] Allergies Allergen (clinical drug ingredient) Drug/Non Drug [...] Provider Diagnosis Darrian Ziegler III, MD [address] [place] [address] DR [place], KAREN [address] 05/02/2024 Darrian Ziegler HTN (hypertension) I 10 [...] the liver has been done by his law enforcement officer, Dr. Burnett. It showed thickening of the [...] Provider Name:Darrian Ziegler , 06/13/2025 02:15:00 PM, [address] [place] [address] [address], [place], [address], Provider Name:Darrian Ziegler , 12/11/2025 02:00:00 PM, [address] [place] [address] [address], [place], [address], Progress Notes * Zehra AGOSTO KDOB: (74 yo M)Acc No.[id number]:05/02/2024 Progress Notes Patient: Candelario GALICIAchandu Sissy Provider: Yahaira Ziegler MD :1950 A ge:74 Y S ex:Male Date:05/02/2024 Address:[address] [place], [place] [phone] Pcp:Hilary Jimenez MD Subjective: * Chief Complaints: [...] ggressive non-smoker Quentin olivares was born in [facility] and now lives in [place], [place]. He is and has several children. [...] the liver has been done by his law enforcement officer, Dr. Burnett. It showed thickening of the [...] 0 05/02/2024 Generated for Ana cabrera/Linden/[place]ene[place]itting on: 06:27 PM EDT History and Physical Notes * [...]
--- OUTSIDE RECORDS SUMMARY | 2024-12-26 05:20 | XMS_ITS ---
Author Organization [facility] Address 10 [facility] [address] [place] [address] Care Team Providers Care Electrical Appliance Servicer Name Role Phone Hilary Jimenez Primary Care Provider Unavailab Joe Hardy Jr [phone] REASON FOR VISIT cirrhosis Encounters Encounter Location Date Provider Diagnosis [facility] [address] [facility] [address] [place] [address] 12/26/2024 Joe Burnett Jr Plan Of Treatment Next Appt Details Provider Name:Joe estrada Jr, 05/24/2026 01:35:00 PM, [address] [facility], [address], [place], [address], Progress Notes * AGOSTO, Zehra KDOB: (75 yo M)Acc No.[id number]:12/26/2024 Progress Notes Patient: Candelario GALICIAchandu Sissy Provider: Symone Burnett MD :1950 A ge:74 Y S ex:Male Date:12/26/2024 Address:[address] [place] [address] Pcp:Hilary Jimenez Subjective: * Chief Complaints: * [...] 0 12/26/2024 Generated for Ana cabrera/Linden/Nigel on: 06:28 PM EDT
--- OUTSIDE RECORDS SUMMARY | 2024-12-27 13:00 | XMS_ITS ---
Author Organization Darrian Ziegler III, MD Address [address] [facility] [place] [address] Care Team Providers Care Trimmer Machine Operator Name Role Phone Tony PINK, Hilary Primary Care Provider Dr. Darrian Smith III [phone] REASON FOR VISIT Followup Encounters Encounter Location Date Provider Diagnosis Darrian Ziegler III, MD [address] [place] [address] [place] [address] 12/27/2024 Darrian Ziegler Plan Of Treatment Next Appt Details Provider Name:Darrian Ziegler , 06/13/2025 02:15:00 PM, [address] [place] [address] [place], [address], Provider Name:Darrian Ziegler , 12/11/2025 02:00:00 PM, [address] [place] [address] [place], [address], Progress Notes * Zehra AGOSTO KDOB: (75 yo M)Acc No.[id number]:12/27/2024 Progress Notes Patient: Zehra GALICIA Provider: Yahaira Ziegler MD :1950 A ge:74 Y S ex:Male Date:12/27/2024 Phone: Address:[address] [place] [address] Pcp:Hilary Jimenez MD Subjective: * Chief Complaints: [...] 12/27/2024 Generated for Ana cabrera/Linden/Nigel on: 1 06:27 PM EDT
--- OUTSIDE RECORDS SUMMARY | 2025-01-31 06:15 | XMS_ITS ---
Author Organization Darrian Ziegler III, MD Address [address] [place] [address] [place] [address] Care Team Providers Care Electric Range Servicer Name Role Phone Tony PINK, [facility] Primary Care Provider Dr. Darrian Smith III Unavailable [phone] Allergies Allergen (clinical drug ingredient) Drug/Non Drug [...] Provider Diagnosis Darrian Ziegler III, MD [address] [place] [address] [address] [place], KAREN [address] 01/31/2025 Darrian Ziegler Urothelial carcinoma C68.9 ; [...] the liver has been done by his leather goods maker, Dr. Burnett. It showed thickening of the [...] Provider Name:Darrian Ziegler , 06/13/2025 02:15:00 PM, [address] [place] [address] [address], [place], [address], Provider Name:Darrian Ziegler , 12/11/2025 02:00:00 PM, [address] [place] [address] [address], [place], [address], Progress Notes * Zehra AGOSTO KDOB: (74 yo M)Acc No.[id number]:01/31/2025 Progress Notes Patient: Kana GALICIArichardra Sheehan Provider: Yahaira Ziegler MD :1950 A ge:74 Y S ex:Male Date:01/31/2025 Phone: Address:[address] [place] [phone] Pcp:Hilary Jimenez MD Subjective: * Chief Complaints: [...] ggressive non-smoker Quentin olivares was born in [facility] and now lives in [place], [place]. He is and has several children. [...] the liver has been done by his leather goods maker, Dr. Burnett. It showed thickening of the [...] 0 01/31/2025 Generated for Ana cabrera/Linden/Reneeitting on: 1 06:27 PM EDT History and Physical Notes [...]
--- OUTSIDE RECORDS SUMMARY | 2025-03-07 07:00 | XMS_ITS ---
Author Organization [facility] Address 10 [facility] [address] [place] [address] Care Team Providers Care Cardiopulmonary Physical Therapist Name Role Phone Hilary Jimenez Primary Care Provider Unavailab Joe Hardy Jr [phone] REASON FOR VISIT abn findings in stool Encounters Encounter Location Date Provider Diagnosis [facility] Outpatient [address] [place] [id number] 03/07/2025 Joe Burnett Jr Plan Of Treatment Next Appt Details Provider Name:Joe estrada Jr, 05/24/2026 01:35:00 PM, [address] [facility], Suite [facility], [place], [address], Progress Notes * Zehra AGOSTO KDOB: (75 yo M)Acc No.[id number]:03/07/2025 EGD and COL/MAC Patient: Vance MCCLOUD Zehra Sheehan Provider: Symone Burnett MD :1950 A ge:74 Y S ex:Male Date:03/07/2025 Address:[address] [place] [phone] Pcp:Hilary Jimenez Subjective: * Chief Complaints: * [...] 0 03/07/2025 Generated for Ana cabrera/Linden/Nigel on: 06:28 PM EDT
--- OUTSIDE RECORDS SUMMARY | 2025-04-04 07:10 | XMS_ITS ---
Author Organization [facility] Address [address] [facility] [address] [place] [address] Care Team Providers Care Em Physician Name Role Phone Hilary Jimenez Primary Care Provider Unavailab Joe Hardy Jr REASON FOR VISIT abnormal ct scan Encounters Encounter Location Date Provider Diagnosis [facility] [place] [address] [place] [id number] 04/04/2025 Joe Burnett Jr Plan Of Treatment Next Appt Details Provider Name:Joe estrada Jr, 05/24/2026 01:35:00 PM, [address] [facility], [address], [place], [address], Progress Notes * Zehra AGOSTO KDOB: (75 yo M)Acc No.[id number]:04/04/2025 EGD and COL/MAC Patient: Vance MCCLOUD Zehra Sheehan Provider: Symone Burnett MD :1950 A ge:75 Y S ex:Male Date:04/04/2025 Address:[address] [place] [phone] Pcp:Hilary Jimenez Subjective: * Chief Complaints: * [...] 0 04/04/2025 Generated for Ana cabrera/Linden/Nigel on: 06:27 PM EDT
--- OUTSIDE RECORDS SUMMARY | 2025-05-04 06:30 | XMS_ITS ---
Author Organization Darrian Ziegler III, MD Address [address] [place] [address] Care Team Providers Care Director Of Public Works Name Role Phone Tony PINK, [facility] [...] Date Provider Diagnosis Darrian Ziegler III, MD [address] [place] [address] [place] [address] 05/04/2025 Darrian Ziegler HTN (hypertension) I 10 [...] the liver has been done by his vendor specialist, Dr. Burnett. It showed thickening of [...] months, Reason: OV Provider Name:Darrian Ziegler , 06/13/2025 02:15:00 PM, [address] [place] [address] [address], [place], [address], Provider Name:Darrian Ziegler , 12/11/2025 02:00:00 PM, [address] [place] [address] [address], [place], [address], Progress Notes * Zehra AGOSTO KDOB: (75 yo M)Acc No.[id number]:05/04/2025 Progress Notes Patient: Zehra GALICIA Provider: Yahaira Ziegler MD :1950 A ge:75 Y S ex:Male Date:05/04/2025 Phone: Address:[address] [place], [place] [address], [place] Pcp:Hilary Jimenez MD Subjective: * Chief Complaints: [...] next week with Dr. Darrian Rowe at [facility]. On examination today, he still has [...] June 2025 to spend the winter in [facility].. He says he will returrn in [...] born in [place] and now lives in [place], [place]. He is and has several children. [...] the liver has been done by his vendor specialist, Dr. Burnett. It showed thickening of [...] MD Date: 0 05/04/2025 Generated for Ana cabrera/Linden/eTsaraitting on: 06:28 PM EDT History and Physical Notes [...]
--- OUTSIDE RECORDS SUMMARY | 2025-05-05 04:10 | XMS_ITS ---
Author Organization [facility] Address [address] [facility] [address] [place] [address] Care Team Providers Care Plate Embosser Name Role Phone Hilary Jimenez Primary Care Provider Unavailab Joe Hardy Jr REASON FOR VISIT abnormal ct scan Encounters Encounter Location Date Provider Diagnosis [facility] [place] [address] [place] [id number] 05/05/2025 Joe Burnett Jr Plan Of Treatment Next Appt Details Provider Name:Joe estrada Jr, 05/24/2026 01:35:00 PM, [address] [facility], [address], [place], [address], Progress Notes * Zehra AGOSTO KDOB: (75 yo M)Acc No.[id number]:05/05/2025 EGD and COL/MAC Patient: Vance MCCLOUD Zehra Sheehan Provider: Symone Burnett MD :1950 A ge:75 Y S ex:Male Date:05/05/2025 Address:[address] [place] [address] Pcp:Hilary Jimenez Subjective: * Chief Complaints: * [...] 0 05/05/2025 Generated for Ana cabrera/Linden/Nigel on: 06:27 PM EDT
--- OUTSIDE RECORDS SUMMARY | 2025-05-12 07:40 | XMS_ITS ---
Author Organization [facility] Address [address] [place] [address] Care Team Providers Care Stars Coordinator Name Role Phone Hilary Jimenez Primary Care Provider Unavailab Joe Hardy Jr [phone] REASON FOR VISIT abnormal ct scan Medications [...] Active Encounters Encounter Location Date Provider [place] [facility] [place] [address] [place], [place] [phone] 05/12/2025 Joe Burnett Jr Plan Of Treatment Next Appt Details Provider Name:Joe estrada Jr, 05/24/2026 01:35:00 PM, [address], [address], [place], [address], Progress Notes * Zehra AGOSTO KDOB: (75 yo M)Acc No.[id number]:05/12/2025 EGD and COL/MAC Patient: Zehra GALICIA Provider: Symone Burnett MD :1950 A ge:75 Y S ex:Male Date:05/12/2025 Address:[address] [place], [place] [phone] Pcp:Hilary Jimenez Subjective: * Chief Complaints: * [...] MD Date: Generated for Ana cabrera/Linden/Reneeitting on: 06:27 PM EDT
--- OUTSIDE RECORDS SUMMARY | 2025-06-05 09:29 | XMS_ITS ---
Author Organization Darrian Ziegler III, MD Address [address] [place] [address] [place] [address] Care Team Providers Care Education Liaison Name Role Phone Tony PINK, [facility] Primary Care Provider Dr. Darrian Smith III REASON FOR VISIT AFP Lab Encounters Encounter Location Date Provider Diagnosis Darrian Ziegler III, MD [address] [place] [address] [place] [address] 06/05/2025 Darrian Ziegler Cirrhosis of liver without ascites, unspecified hepatic cirrhosis type K74.60 Assessments Encounter Date Diagnosis (ICD Code) Assessment Notes Treat ment Notes Treatment Clinical Notes 06/05/2025 Cirrhosis of liver without ascites, unspecified hepatic cirrhosis type (ICD-10 - K74.60) Plan Of Treatment Pending Test Test Name Order Date ALPHA-FETOPROTEIN,TUMOR MARKER Next Appt Details Provider Name:Darrian Ziegler , 06/13/2025 02:15:00 PM, [address] [place] [address] [place], [address], Provider Name:Darrian Ziegler , 12/11/2025 02:00:00 PM, [address] [place] [address] [place], [address], Progress Notes * SURENDRA Zehra KDOB: (75 yo M)Acc No.[id number]:06/05/2025 Patient: Candelario GALICIAchandu Sissy :1950 A ge:75 Y S ex:Male Phone: Address: [place], [address] Subjective: * Chief Complaints: * A FP Lab * Medical History: * Surgical History: * Hospitalization/Major Diagno stic Procedure: * Medications: Objective: * Vitals: * Physical Examination: Assessment: * Assessment: 1. C irrhosis of liver without ascites, unspecified hepatic cirrhosis type - K74.60 ? Plan: * Treatment: * Procedure Codes: * * Date:
[2025-06-06 16:04] LABS: Anion Gap 7 (12-20); Blood Urea Nitrogen 24 mg/dL (9-16); Calcium 9.3 mg/dL (8.4-10.2); Carbon Dioxide 20 mmol/L (22-29); Chloride 114 mmol/L (96-108); Estimated Glomerular Filt Rate 54; Potassium 4.0 mmol/L (3.3-5.1); Sodium 137 mmol/L (135-145)
--- OUTSIDE RECORDS SUMMARY | 2025-06-06 18:27 | XMS_ITS | Patient Health Record ---
Author Organization [facility] Address [address] [place] [address] Care Team Providers Care Rotary Operator Name Role Phone Hilary Boss Primary [...] Value Reference Range Notes Glucose, Whole Blood Reviewed date:05/15/2025 01:35:07 PM Interpretation: Performing Lab:[facility], [address] [place] [address] Notes/Report: Glucose, Whole Blood 119 60-115 mg/dL METER # : [id number] Pathology Reviewed date:05/16/2025 02:20:44 PM Interpretation: Performing Lab:[facility], [address] [place] [phone] Notes/Report: Reason For Referral Referring Provider First Name Hilary Referring Provider Last Name Tony Referring Provider Speciality Internal M edicine Referred Organization [facility] Referred Provider Joe Echavarria Jr Referred Address [address] [facility],[address],[place], [place],[address], Referred Provider Specialty Gastroentero logy General Notes Brooklyn Barkley 2024 10:14:44 AM > REQUESTED HERACLIO REFEFFAL FROM DR BOSS'S OFFICE FOR VISIT WITH DR ECHAVARRIA ON 02-15-25Rubia Dawn 02/15/2025 11:39:50 AM >no referral required since patient is in the same unga of care Referral Priority Routine Medications Medication SIG (Take, Route, Frequency, Duration) Notes Start Date End Date Status metFORMIN HCl 500 MG TAKE 2 TABLETS BY M OUTH EVERY DAY Oral; Duration: 90 Active Vitamin B Complex - as [...] Acid 1 MG Oral; Duration: 30 Active Immunizations Vaccine Route Administration Date Status [...] Risk Notes Problem Oesophageal varices without bleeding (85372693) Secondary esophageal varices without bleeding (I85.10) Active confirmed Problem Portal hypertension (99879545) Portal hypertension (K76.6) Active confirmed Problem Liver mass (955804082) Liver mass (R16.0) Active confirmed Problem Lesion of liver (132341507) Liver lesion (K76.9) Active confirmed Problem Abnormal findings diagnostic imaging of liver and biliary tract (386823255) Abnormal CT scan, liver (R93.2) Active confirmed Problem Cirrhosis - non-alcoholic (431092500) Cirrhosis of liver without ascites, unspecified hepatic cirrhosis type (K74.60) Active confirmed Vital Signs Temperature 97.7 degrees Fahrenheit 02/15/2025 Blood pressure diastolic 01 mm Hg 02/15/2025 Height 62 in 02/15/2025 Blood pressure systolic 001 mm Hg 02/15/2025 Weight 120 lbs 02/15/2025 BMI 21.95 kg/m2 02/15/2025 Encounters Encounter Location Date Provider Diagnosis [facility] [address] [place] [address] [place] [phone] 05/12/2025 Joe Echavarria Jr [facility] [address] [place] [address] 02/15/2025 Joe Echavarria Jr Abnormal findings in stool R19.5 [facility] [address] [place] [phone] 12/26/2024 Joe Echavarria Jr [facility] [address] [place] [address] 02/28/2025 Joe Echavarria Jr [facility] [address] [place] [address] 02/28/2025 Joe Echavarria Jr [facility] [address] [place] [address] 03/30/2025 Joe Echavarria Jr [facility] [address] [place] [address] 04/24/2025 Joe Echavarria Jr [facility] [address] [place] [address] 05/04/2025 Joe Echavarria Jr [facility] [address] [place] [address] 05/16/2025 Joe Echavarria Jr Assessments Encounter Date Diagnosis [...] Next Appt Details Provider Name:Joe estrada , 05/24/2026 01:35:00 PM, [address] [facility], [address], [place], [address], Insurance Providers Payer Name Payer Address Payer Phone Subscriber Number Group Number Insured Name Patient Relationship to Insured Coverage Start Date Coverage End Date [facility] [address] A[place] Fisher [phone] [id number] Alexia Agosto Self - patient is the insured MEDICAID OF [facility] [address] [place] [id number] [phone] [id number] Alexia Agosto Self - patient is the insured Medical (General) History Medical History History ICD Code diabetes asthma Hypertension Bladder cancer Cirrhosis, likely secondary to fatty lonnie er, compensated Surgical History Surgery Date(Month/Year) bladder cancer Radical cystectomy, ileal conduit Hospitalization History Reason Date(Month/Year)
--- OUTSIDE RECORDS SUMMARY | 2025-06-06 18:27 | XMS_ITS | Patient Health Record ---
Author Organization Darrian Ziegler III, MD Address [address] [place] [address] [place] [address] Care Team Providers Care Engine Setter Name Role Phone Tony PINK, [facility] Primary Care Provider Dr. Darrian Smith III Unavailable Allergies Allergen (clinical drug ingredient) Drug/Non Drug Allergy documented on EMR Reaction Allergy Type Onset Date Status aspirin Aspirin Unknown Drug Allergy Active Motrin Unknown Drug Allergy Active Results Component Value Reference Range Notes Complete Blood Count Auto Di ff Reviewed date:01/27/2025 01:46:19 PM Interpretation: Performing Lab:[facility], [address] [place] [phone] Notes/Report: White Blood Count 7.4 4.8-10.8 X10*3/uL [...] 0.0-0.2 /100WBC Neutrophils Absolute Auto 3.7 2.0-8.3 x10*3/u L Imm Gran Abs Auto 0.03 0.00-0.03 X10*3/uL Lymphocytes Absolute Auto 1.5 1.2-4.9 X10*3/u L Monocytes Absolute Auto 0.6 0.1-1.2 X10*3/uL Eosinophils Absolute Auto 1.6 0.0-0.4 X10*3/u L Basophils Absolute Auto 0.1 0.0-0.2 X10*3/uL NRBC Abs Auto 0.000 0.0-0.012 X10*3/uL CORRECTED REPORT Comprehensive [place]. Panel Fa st Reviewed date:01/27/2025 01:46:19 PM Interpretation: Performing Lab:[facility], [address] [place] [phone] Notes/Report: Sodium 138 135-145 mmol/L Potassium 4.2 [...] Panel Reviewed date:01/27/2025 01:46:19 PM Interpretation: Performing Lab:[facility], [address] [place] [phone] Notes/Report: Triglycerides 95 <150 mg/dL Desirable Triglyceride: [...] Antigen Reviewed date:01/27/2025 01:46:19 PM Interpretation: Performing Lab:[facility], [address] [place] [phone] Notes/Report: Prostate Specific Antigen < 0.10 <0.05-4.0 ng/mL PSA methodology: Rodriguze Alinity i Chemiluminescent Microparticle Immunoassay (CMIA) SLIDE REVIEW Reviewed date:01/27/2025 01:46:19 PM Interpretation: Performing Lab:[facility], [address] [place] [phone] Notes/Report: SLIDE REVIEW VERIFIED Complete Blood Count Auto Di ff Reviewed date:01/27/2025 01:46:19 PM Interpretation: Performing Lab:[facility], [address] [place] [address] Notes/Report: White Blood Count 7.4 4.8-10.8 X10*3/uL [...] 0.0-0.2 /100WBC Neutrophils Absolute Auto 3.7 2.0-8.3 x10*3/u L Imm Gran Abs Auto 0.03 0.00-0.03 X10*3/uL Lymphocytes Absolute Auto 1.5 1.2-4.9 X10*3/u L Monocytes Absolute Auto 0.6 0.1-1.2 X10*3/uL Eosinophils Absolute Auto 1.6 0.0-0.4 X10*3/u L Basophils Absolute Auto 0.1 0.0-0.2 X10*3/uL NRBC Abs Auto 0.000 0.0-0.012 X10*3/uL CORRECTED REPORT Complete Blood Count Auto Di ff Reviewed date:04/17/2025 09:18:18 AM Interpretation: Performing Lab:[facility], [address] [place] [phone] Notes/Report: White Blood Count 5.9 4.8-10.8 X10*3/uL [...] 0.0-0.2 /100WBC Neutrophils Absolute Auto 2.9 2.0-8.3 x10*3/u L Imm Gran Abs Auto 0.06 0.00-0.03 X10*3/uL Lymphocytes Absolute Auto 1.2 1.2-4.9 X10*3/u L Monocytes Absolute Auto 0.6 0.1-1.2 X10*3/uL Eosinophils Absolute Auto 1.0 0.0-0.4 X10*3/u L Basophils Absolute Auto 0.1 0.0-0.2 X10*3/uL NRBC Abs Auto 0.000 0.0-0.012 X10*3/uL Comprehensive [place]. Panel Fa st Reviewed date:04/17/2025 09:18:18 AM Interpretation: Performing Lab:[facility], [address] [place] [phone] Notes/Report: Sodium 137 135-145 mmol/L Potassium 4.5 [...] Ferritin Reviewed date:04/17/2025 09:18:18 AM Interpretation: Performing Lab:[facility], [address] [place] [address] Notes/Report: Ferritin 911 20-250 ng/mL Lipid Panel Reviewed date:04/17/2025 09:18:18 AM Interpretation: Performing Lab:[facility], [address] [place] [phone] Notes/Report: Triglycerides 104 <150 mg/dL Desirable Triglyceride: [...] Antigen Reviewed date:04/17/2025 09:18:18 AM Interpretation: Performing Lab:[address] [address] Notes/Report: Prostate Specific Antigen < 0.10 <0.05-4.0 ng/mL PSA methodology: Rodriguez Alinity i Chemiluminescent Microparticle Immunoassay (CMIA) Folate Reviewed date:04/17/2025 09:18:18 AM Interpretation: Performing Lab:[address] [address] Notes/Report: Folate 16.3 > or = 4.0 ng/mL Reference Values: > or = 4.0 ng/mL < 4.0 ng/mL suggests folate deficiency Methotrexate, aminopterin and folinic acid (leucovorin) are chemotherapeutic agents whose molecular structures are similar to folate; therefore, the Government Relations Manager folate assay cannot be used for patients using these drugs. Alpha Fetoprotein Reviewed date:06/04/2025 07:37:22 AM Interpretation: Performing Lab:[facility], [address] [place] [phone] Notes/Report: Alpha Fetoprotein 7.9 <6.1 ng/mL This test was performed using the Sylvie Jeramy chemiluminescent method. Values obtained from different assay methods cannot be used interchangeably. AFP levels, regardless of value, should not be interpreted as absolute evidence of the presence or absence of disease. THIS TEST WAS PERFORMED AT: [facility] [address] [place] [address] TORSTEN GARG MD SCREENING COLONOSCOPY Reviewed date:06/05/2025 12:38:15 PM Interpretation:undefined Performing Lab: Notes/Report: undefined Reason For Referral No Information Medications Medication [...] Status W/U Status Risk Notes Problem Asthma (609294079) Asthma (J45.909) Active confirmed He repo rts no difficulty with breathing since his last visit. He tolerated the hot weather of the summer without difficulty. Problem Anemia (638903760) Anemia (D64.9) Active confirmed His hemat ocrit is slightly lower, but he had a recent episode of bleeding which required hospitalization. His ferritin is rising. His iron supplementation has been stopped. This will be observed. Problem Diabetes mellitus (26274088) Diabetes mellitus (E11.9) Active confirmed Is A1c was quite low and primary care has discontinued his ddiabetic medications. His current fasting glucose is 111. Problem 646652053 Mixed hyperlipidemia (E78.2) Active confirmed Is currently stable and no change in his treatment is needed. Problem Hypertension (27408722) HTN (hypertension) (I10) Active confirmed His blood pressure is currently stable at 137/49 and no change in his regimen is needed today. Problem Hypothyroid (92358104) Hypothyroid (E03.9) Active confirmed He remains euthyroid. No change in his medication was needed. Problem 510882567 Urothelial carcinoma (C68.9) Active confirmed There is no sig n of recurrent disease at this time. The ileostomy is functioning well.He was hospitalized recently for bleeding into the urostomy but this has resolved and no serious cause was found. Problem 8854512880795 Benign prostatic hyperplasia with lower urinary tract symptoms (N40.1) Active confirmed He rises from sleep once or twice a night to urinate depending upon fluid intake. We reviewed lifestyle modification she could make to reduce nocturia. 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 He has had no bleeding. The ostomy is functioning well. Problem 79721507 Cirrhosis of liver without ascites, unspecified hepatic [...] obtained.A repeat MRI has been scheduled. Problem 209997270 History of tuberculosis (Z86.11) Active confirmed Vital Signs Heart Rate 71 /min 05/04/2025 Temperature 98.4 degrees Fahrenheit 05/04/2025 Blood pressure diastolic 49 mm Hg 05/04/2025 Height 61 in 05/04/2025 Blood pressure systolic 137 mm Hg 05/04/2025 Weight 128 lbs 05/04/2025 BMI 24.18 kg/m2 05/04/2025 Encounters Encounter Location Date Provider Diagnosis Darrian Ziegler III, MD [address] [place] [address] [address] [place] [address] 01/31/2025 Darrian Ziegler Urothelial carcinoma C68.9 ; Cirrhosis of liver without ascites, unspecified hepatic cirrhosis type K74.60 ; HTN (hypertension) I10 ; Hypothyroid E03.9 ; Anemia, unspecified type D64.9 ; Benign prostatic hyperplasia with lower urinary tract symptoms N40.1 ; Ileostomy in place Z93.2 and Diabetes mellitus E11.9 Darrian Ziegler III, MD [address] [place] [address] [place] [address] 05/04/2025 Darrian Ziegler HTN (hypertension) I 10 ; Cirrhosis of liver without ascites, unspecified hepatic cirrhosis type K74.60 ; Asthma J45.909 ; Anemia D64.9 ; Diabetes mellitus E11.9 ; Hypothyroid E03.9 ; Urothelial carcinoma C68.9 ; Ileostomy in place Z93.2 and Benign prostatic hyperplasia with lower urinary tract symptoms N40.1 Darrian Ziegler III, MD [address] [place] [address] [place] [address] 06/05/2025 Darrian Ziegler Cirrhosis of liver without [...] the liver has been done by his software engineer developer, Dr. Burnett. It showed thickening of the [...] the liver has been done by his software engineer developer, Dr. Burnett. It showed thickening of the renal pelvis which will be referred to urology. It also showed 2 enhancing masses in the liver 1 being 1.1 cm equivocal for hepatocellular carcinoma. This is being followed. An alpha-fetoprotein will be obtained.A repeat MRI has been scheduled. 06/05/2025 Cirrhosis of liver without ascites, unspecified hepatic cirrhosis type (ICD-10 - K74.60) 01/31/2025 HTN (hypertension) (ICD-10 - I10) His [...] C) 05/02/2024 PROFILE, FASTING (COMPREHENSIVE METABOLI C) 05/04/2025 PROFILE, FASTING (COMPREHENSIVE METABOLI C) 05/19/2023 PROFILE, [...] CBC w DIFF 01/31/2025 CBC w DIFF 05/04/2025 CBC w DIFF 05/13/2022 CBC w DIFF 10/15/2021 CBC w DIFF 11/12/2021 CBC w DIFF 05/19/2023 SED RATE (ESR) 10/15/2021 RETICULOCYTE COUNT,CORRECTED 11/12/2021 RETICULOCYTE COUNT,CORRECTED 10/15/2021 ALPHA-FETOPROTEIN,TUMOR MARKER 5 ALPHA-FETOPROTEIN,TUMOR MARKER 5 ALPHA-FETOPROTEIN,TUMOR MARKER 5 MRI ABD W&WO CONTRAST 05/04/2025 CBC WITH AUTO DIFF 05/02/2024 CBC WITH AUTO DIFF 12/29/2023 Ferritin 01/31/2025 Ferritin 05/04/2025 Lipid Panel 05/02/2024 Lipid Panel 12/29/2023 Lipid Panel 01/31/2025 Lipid Panel 05/04/2025 Folate 01/31/2025 Microalbumin, Random 05/19/2023 Hemoglobin A1c 05/04/2025 Hemoglobin A1c 12/29/2023 Next Appt Details Provider Name:Darrian Ziegler , 06/13/2025 02:15:00 PM, [address] [place] [address] [address], [place], [address], Provider Name:Darrian Ziegler , 12/11/2025 02:00:00 PM, [address] [place] [address] [address], [place], [address], Insurance Providers Payer Name Payer Address Payer Phone Subscriber Number Group Number Insured Name Patient Relationship to Insured Coverage Start Date Coverage End Date [facility] [address] [place] [phone] [id number] Alexia Agosto Self - patient is the insured MEDICAID [facility] [address] [place] [id number] [phone] [id number] Alexia Agosto Self - patient is the insured MEDICARE [employer] [address] [facility] [place] [address] [phone] [id number] Alexia Agosto Self - patient is the [...]
== END 2025-06-06 14:02 | disposition home or self-care (01) ==
LOC: HO.LAB 14:01
PROVIDERS: Absent Provider Urology; PCP Internal Medicine; Visit Provider Internal Medicine Medical Oncology
DX: N20.0 Calculus of kidney (principal); C67.9 Malignant neoplasm of bladder, unspecified; K74.60 Unspecified cirrhosis of liver
CPT/HCPCS: 36415; 80048; 82105

== ENCOUNTER 2025-06-14 20:40 | Inpatient (IN) | payer OTHER, SELFPAY ==
--- OUTSIDE RECORDS SUMMARY | 2023-12-29 09:30 | XMS_ITS ---
Author Organization Darrian Ziegler III, MD Address [address] [place] [address] Care Team Providers Care Funeral Home General Manager Name Role Phone Tony PINK, [facility] Primary Care Provider Dr. Darrian Smith III Unavailable Allergies Allergen (clinical drug ingredient) Drug/Non Drug Allergy documented on EMR Reaction Allergy Type Onset Date Status aspirin Aspirin Unknown Drug Allergy Active Motrin Unknown Drug Allergy Active REASON FOR VISIT Hypertension, History of bladder cancer, Asthma, Diabetes, Hypothyroidism, Hyperlipidemia. The, BPH, Hepatic cirrhosis Medications Medication SIG (Take, Route, Frequency, Duration) Notes Start Date End Date Status metFORMIN HCl 500 MG 1 tablet with a dick l Orally Twice a day Active Atorvastatin Calcium 10 MG 1 tablet Oral ly Once a day Active Montelukast Sodium 10 MG 1 tablet Orally Once a day Active Cefuroxime Axetil 500 MG TAKE 1 TABLET B Y MOUTH TWICE A DAY FOR 10 DAYS Oral Active Januvia 50 MG 1 tablet Orally Once a day Active Telmisartan 80 MG 1 tablet Orally Once a day Active Dulcolax 5 MG 1 tablet as needed O rally Once a day Active Cholecalciferol Acti ve Multivitamin Active Folic Acid 1 MG 1 tablet Orally Once a day 11/12/2021 Active Social History Tobacco Use: Social History Observation Description Date Details (start date - stop date) Never Smoker NA - NA Tobacco Use/Smoking Question Answer Notes Patient is a nonsmoker Additional Findings: Tobacco Non-User Aggressive non-smoker Vital Signs Temperature 97.3 degrees Fahrenheit 12/29/19 24 Blood pressure systolic 121 mm Hg 12/29/19 24 Blood pressure diastolic 67 mm Hg 05/21/2 024 Heart Rate 76 /min 12/29/2023 Height 61 in 12/29/2023 Weight 128 lbs 12/29/2023 BMI 24.18 kg/m2 12/29/2023 Encounters Encounter Location Date Provider Diagnosis Darrian Ziegler III, MD [address] [place] [address] [place] [address] 12/29/2023 Darrian Ziegler HTN (hypertension) I 10 ; Diabetes mellitus E11.9 ; Mixed hyperlipidemia E78.2 ; Asthma J45.909 ; Anemia D64.9 ; Ileostomy in place Z93.2 ; Urothelial carcinoma C68.9 and Hypothyroid E03.9 Assessments Encounter Date Diagnosis (ICD Code) Assessment Notes Treat ment Notes Treatment Clinical Notes 12/29/2023 HTN (hypertension) (ICD-10 - I10) His blood pressure is currently stable at 121/67 and no change in his regimen is needed today. 12/29/2023 Diabetes mellitus (ICD-10 - E11.9) His diabetes has been well controlled. No change in his medications was necessary today. 12/29/2023 Mixed hyperlipidemia (ICD-10 - E78.2) His lipids are in near target range. He is tolerating all of his medications well. No change in his regimen was made. 12/29/2023 Asthma (ICD-10 - J45.909) He reports no difficulty with breathing since his last visit. He tolerated the hot weather of the summer without difficulty. 12/29/2023 Anemia (ICD-10 - D64.9) He has progressed since his last visit. It is normochromic and normocytic. He will continue observation at this point. Periodic blood work will be done. No bleeding has been documented. 12/29/[address] (ICD-10 - Z93.2) 12/29/2023 Urothelial carcinoma (ICD-10 - C68.9) There is no sign of recurrent disease at this time. The ileostomy is functioning well. 12/29/2023 Hypothyroid (ICD-10 - E03.9) He has been compliant with his thyroid medication and has no side effects. Plan Of Treatment Medication Medication Name Sig Start Date Stop Date Notes metFORMIN HCl 500 MG 1 tablet with a dick l Orally Twice a day Atorvastatin Calcium 10 MG 1 tablet Orally Once a day Montelukast Sodium 10 MG 1 tablet Orally Once a day Cefuroxime Axetil 500 MG TAKE 1 TABLET B Y MOUTH TWICE A DAY FOR 10 DAYS Oral Januvia 50 MG 1 tablet Orally Once a day Telmisartan 80 MG 1 tablet Orally Once a day Dulcolax 5 MG 1 tablet as needed O rally Once a day Cholecalciferol Multivitamin Folic Acid 1 MG 1 tablet Orally Once a day 11/12/2021 Pending Test Test Name Order Date PROFILE, FASTING (COMPREHENSIVE METABOLI C) 12/29/2023 CBC WITH AUTO DIFF 12/29/2023 Lipid Panel 12/29/2023 Hemoglobin A1c 12/29/2023 Next Appt Details Follow Up: 4 Months, Reason: OV Provider Name:Darrian Ziegler , 06/21/2025 03:30:00 PM, [address] [place] [address] [address], [place], [phone], Provider Name:Darrian Ziegler , 12/11/2025 02:00:00 PM, [address] [place] [address] [address], [place], [phone], Progress Notes * Zehra AGOSTO KDOB: (73 yo M)Acc No.[id number]:12/29/2023 Progress Notes Patient: Zehra Angel Provider: Yahaira Ziegler MD :1950 A ge:73 Y S ex:Male Date:12/29/2023 Address:[address] [place], [place] [phone] Pcp:Hilary Jimenez MD Subjective: * Chief Complaints: * H ypertensionHistory of bladder cancerAsthmaDiabetesHypothyroidismHyperlipidemia. TheBPHHepatic cirrhosis * HPI: C OVID-19 Screening: Questions H ave you experienced fever, chills, cough, sore throat, shortness of breath, difficulty breathing, muscle aches, loss of taste or smell? N o H ave you been exposed to the virus within the last 10 days? N o H ave you travelled internationally in the last 10 days? N o H ave you been exposed to COVID-19 in the past? N o He returns to the office for management of his numerous medical issues. Her into the emergency room [facility] December 22, 2023 for a urinary tract infection which has now resolved. His ileostomy is working well. He denies any chest pain or shortness of breath. His blood sugars average about 1:30 every morning. He has had no episodes of asthma. He has not been bothered by the pollen season. He rises from sleep once or twice a night to urinate. We have discussed lifestyle modification as a way to cope with nocturia. * ROS: G eneral/Constitutional: pain o nly normal aches and pains. C hills d enies.?Fatigue a dmits. F ever d enies. E NT: Decreased hearing d enies. R espiratory: Cough d enies. C ardiovascular: Chest pain with exertion d enies. D yspnea on exertion?denies. S hortness of breath d enies. G astrointestinal: Constipation o ccasional. D ecreased appetite d enies. D iarrhea d enies. H eartburn o ccasional. N ausea d enies. R ectal bleeding d enies. V omiting d enies. H ematology: bruising d enies. p etechiae d enies. S wollen glands n one have been noted. G enitourinary: Frequent urination o nce a night. M usculoskeletal: Muscle aches d enies. P ainful joints d enies. S ciatica d enies. W eakness d enies. S kin: Itching d enies. R milagros d enies. S kin lesion(s)?denies. N eurologic: Difficulty speaking d enies. D izziness d enies.?Headache d enies. L ow back pain d enies. P sychiatric: Depressed mood d enies. 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 M other: 85 yrs, diagnosed with HTN. S iblings: diagnosed with HTN, DM. 2 brother(s) , 1 sister(s) - healthy. 2 son(s) - healthy. . His mother has a history of high blood pressure and asthma. His sisters likewise have a history of high blood pressure and asthma. Several siblings are diabetic. He has children with diabetes. He is not aware of any inherited cancer family syndrome. He is not aware of any family history of mental illness or substance use disorder, or addictions. * Social History: T obacco Use: T obacco Use/Smoking P atvidya is a n onsmoker A dditional Findings: Tobacco Non-User A ggressive non-smoker Quentin olivares was born in [facility] and now lives in [place], [place]. He is and has several children. He is currently retired. * Medications: T akingMultivitamin Cholecalciferol Dulcolax 5 MG Tablet Delayed Release 1 tablet as needed Orally Once a dayTelmisartan 80 MG Tablet 1 tablet Orally Once a daymetFORMIN HCl 500 MG Tablet 1 tablet with a meal Orally Twice a dayJanuvia 50 MG Tablet 1 tablet Orally Once a dayCefuroxime Axetil 500 MG Tablet TAKE 1 TABLET BY MOUTH TWICE A DAY FOR 10 DAYS Oral Montelukast Sodium 10 MG Tablet 1 tablet Orally Once a dayAtorvastatin Calcium 10 MG Tablet 1 tablet Orally Once a dayFolic Acid 1 MG Tablet 1 tablet Orally Once a dayTaking Multivitamin Taking Cholecalciferol Taking Dulcolax 5 MG Tablet Delayed Release 1 tablet as needed Orally Once a dayTaking Telmisartan 80 MG Tablet 1 tablet Orally Once a dayTaking metFORMIN HCl 500 MG Tablet 1 tablet with a meal Orally Twice a dayTaking Januvia 50 MG Tablet 1 tablet Orally Once a dayTaking Cefuroxime Axetil 500 MG Tablet TAKE 1 TABLET BY MOUTH TWICE A DAY FOR 10 DAYS Oral Taking Montelukast Sodium 10 MG Tablet 1 tablet Orally Once a dayTaking Atorvastatin Calcium 10 MG Tablet 1 tablet Orally Once a dayTaking Folic Acid 1 MG Tablet 1 tablet Orally Once a dayDiscontinuedOmeprazole 20 MG Capsule Delayed Release Oral amLODIPine Besylate 5 MG Tablet 1 tablet Orally Once a dayMethenamine Hippurate 1 GM Tablet 1 tablet Orally Once a dayBisacodyl EC 5 MG Tablet Delayed Release TAKE 2 TABLETS BY MOUTH DAILY Oral Medication List reviewed and reconciled with the patientDiscontinued Omeprazole 20 MG Capsule Delayed Release Oral Discontinued amLODIPine Besylate 5 MG Tablet 1 tablet Orally Once a dayDiscontinued Methenamine Hippurate 1 GM Tablet 1 tablet Orally Once a dayDiscontinued Bisacodyl EC 5 MG Tablet Delayed Release TAKE 2 TABLETS BY MOUTH DAILY Oral Medication List reviewed and reconciled with the patient * Allergies: Luke Santos[Allergies Verified] Objective: * Vitals: H t: 61, Wt:128, BMI:24.18, BP:121/67, HR:76, Temp:97.3, Wt-k.06. * P ast Orders: L ab:Prostate Specific Antigen (Order Date - 12/18/2023) (Collection Date - 12/18/2023) Value Reference Range Prostate Specific Antigen < 0.10 <0.05-4.0 - ng /mL L ab:Lipid Panel (Order Date - 12/18/2023) (Collection Date - 12/18/2023) Value Reference Range Triglycerides 92 <150 - mg/dL Cholesterol 138 <200 - mg/dL LDL Cholesterol Calculated 90 <100 - mg/dL HDL Cholesterol 30 L >40 - mg/dL L ab:Comprehensive [place]. Panel Fast (Order Date - 12/18/2023) (Collection Date - 12/18/2023) Value Reference Range Sodium 132 L 135-145 - mmol/L Bilirubin Total 0.8 0.0-1.0 - mg/dL Aspartate Amino Transferase 43 H 5-37 - U/L Alanine Aminotransferase 29 0-40 - U/L Total Protein 8.7 H 6.5-8.0 - g/dL Albumin Level 3.6 3.5-5.0 - g/dL Alkaline Phosphatase 282 H 39-117 - U/L Potassium 4.1 3.3-5.1 - mmol/L Chloride 106 96-108 - mmol/L Carbon Dioxide 16 L 22-29 - mmol/L Anion Gap 14 12-20 - Blood Urea Nitrogen 14 9-16 - mg/dL Creatinine 1.21 0.5-1.4 - mg/dL Estimated Glomerular Filt Rate 58 - Glucose Fasting 164 H 60-99 - mg/dL Calcium 9.5 8.4-10.2 - mg/dL Lab:Complete Blood Count Aut o Diff * Order Date 12/18/2023 05/11/2023 01/02/2023 White Blood Count 8.3 (Ref Range: 4.8-10.8 X10*3/uL) 6.8 (Ref Range: 4.8-10.8 X10*3/uL) 7.8 (Ref Range: 4.8-10.8 X10*3/uL) Red Blood Count 3.24 L (Ref Range: 4.60-5.80 X10*6/uL) 3.76 L (Ref Range: 4.60-5.80 X10*6/uL) 3.93 L (Ref Range: 4.60-5.80 X10*6/uL) Hemoglobin 10.7 L (Ref Range: 14.0-18.0 g/dl) 11.2 L (Ref Range: 14.0-18.0 g/dl) 11.8 L (Ref Range: 14.0-18.0 g/dl) Hematocrit 31.2 L (Ref Range: 42.0-52.0 %) 35.0 L (Ref Range: 42.0-52.0 %) 36.0 L (Ref Range: 42.0-52.0 %) Mean Corpuscular Volume 96.3 (Ref Range: 80.0-98.0 fL) 93.1 (Ref Range: 80.0-98.0 fL) 91.6 (Ref Range: 80.0-98.0 fL) Mean Corpuscular Hemoglobin 33.0 (Ref Range: 27.0-33.0 pg) 29.8 (Ref Range: 27.0-33.0 pg) 30.0 (Ref Range: 27.0-33.0 pg) Mean Corpuscular HGB Conc 34.3 (Ref Range: 31.0-36.0 g/dl) 32.0 (Ref Range: 31.0-36.0 g/dl) 32.8 (Ref Range: 31.0-36.0 g/dl) Red Cell Distribution Width 12.6 (Ref Range: 11.0-16.0 %) 14.6 (Ref Range: 11.0-16.0 %) 14.5 (Ref Range: 11.0-16.0 %) Platelet Count 224 (Ref Range: 160-400 X10*3/uL) 151 L (Ref Range: 160-400 X10*3/uL) 150 L (Ref Range: 160-400 X10*3/uL) Mean Platelet Volume 10.0 (Ref Range: 9.4-12.4 fL) 11.8 (Ref Range: 9.4-12.4 fL) 12.0 (Ref Range: 9.4-12.4 fL) Neutrophils Percent Auto 73.3 H (Ref Range: 45-73 %) 53.1 (Ref Range: 45-73 %) 48.5 (Ref Range: 45-73 %) Imm Gran Pct Auto 1.2 H (Ref Range: 0.0-0.4 %) 0.4 (Ref Range: 0.0-0.4 %) 0.4 (Ref Range: 0.0-0.4 %) Lymphocytes Percent Auto 13.9 L (Ref Range: 20-40 %) 25.9 (Ref Range: 20-40 %) 26.4 (Ref Range: 20-40 %) Monocytes Percent Auto 7.3 (Ref Range: 2-11 %) 6.5 (Ref Range: 2-11 %) 7.3 (Ref Range: 2-11 %) Eosinophils Percent Auto 3.7 (Ref Range: 0-4 %) 12.9 H (Ref Range: 0-4 %) 16.2 H (Ref Range: 0-4 %) Basophils Percent Auto 0.6 (Ref Range: 0-2 %) 1.2 (Ref Range: 0-2 %) 1.2 (Ref Range: 0-2 %) NRBC Pct Auto 0.0 (Ref Range: 0.0-0.2 /100WBC) 0.0 (Ref Range: 0.0-0.2 /100WBC) 0.0 (Ref Range: 0.0-0.2 /100WBC) Neutrophils Absolute Auto 6.1 (Ref Range: 2.0-8.3 x10*3/uL) 3.6 (Ref Range: 2.0-8.3 x10*3/uL) 3.8 (Ref Range: 2.0-8.3 x10*3/uL) Imm Gran Abs Auto 0.10 H (Ref Range: 0.00-0.03 X10*3/uL) 0.03 (Ref Range: 0.00-0.03 X10*3/uL) 0.03 (Ref Range: 0.00-0.03 X10*3/uL) Lymphocytes Absolute Auto 1.2 (Ref Range: 1.2-4.9 X10*3/uL) 1.8 (Ref Range: 1.2-4.9 X10*3/uL) 2.1 (Ref Range: 1.2-4.9 X10*3/uL) Monocytes Absolute Auto 0.6 (Ref Range: 0.1-1.2 X10*3/uL) 0.4 (Ref Range: 0.1-1.2 X10*3/uL) 0.6 (Ref Range: 0.1-1.2 X10*3/uL) Eosinophils Absolute Auto 0.3 (Ref Range: 0.0-0.4 X10*3/uL) 0.9 H (Ref Range: 0.0-0.4 X10*3/uL) 1.3 H (Ref Range: 0.0-0.4 X10*3/uL) Basophils Absolute Auto 0.1 (Ref Range: 0.0-0.2 X10*3/uL) 0.1 (Ref Range: 0.0-0.2 X10*3/uL) 0.1 (Ref Range: 0.0-0.2 X10*3/uL) NRBC Abs Auto 0.000 (Ref Range: 0.0-0.012 X10*3/uL) 0.000 (Ref Range: 0.0-0.012 X10*3/uL) 0.000 (Ref Range: 0.0-0.012 X10*3/uL) ???Lab:Hemoglobin A1c (Order Date - 12/18/2023) (Collection Date - 12/18/2023) ?ValueReference Range?Hemoglobin A1c %6.2H<6.0 - % ?Estimated Average Vdkijla080- mg/dL ???Lab:Microalbumin, Random (Order Date - 12/18/2023) (Collection Date - 12/18/2023)?ValueReference Range?Creatinine Urine75.67- mg/dL ?Microalbumin Bcnvy157.0- mg/L?Microalbum Creatinine Ratio Ur199.5 H<30 - ug/mg cr * Examination: G eneral Examination: GENERAL APPEARANCE: p allyn, well nourished, well developed, in no acute distress, calm and relaxed , elderly man. HEAD: a traumatic, normocephalic. EYES: e jasper, perrla, anicteric, conjugate. EARS: n ormal. NOSE: s eptum intact. ORAL CAVITY: n ormal, unremarkable. NECK/THYROID: n o jugular venous distention, no carotid bruit, thyroid normal. LYMPH NODES: n o enlarged lymph nodes,spleen normal. SKIN: n o suspicious lesions, anicteric. HEART: n o clicks, gallops, murmurs, or rubs, regular rhythm, S1, S2 normal, no s3, or vascular bruits. LUNGS: c lear to auscultation . BREASTS: no masses palpable bilaterally. ABDOMEN: b owel sounds normal, no ascites, no organomegaly, no mass, Normal functioning ileostomy midabdomen with normal-appearing urine. RECTAL EXAM: n ot examined. MUSCULOSKELETAL: e xtremities unremarkable, no clubbing, cyanosis or edema. PERIPHERAL PULSES: n ormal. NEUROLOGIC: a lert and oriented, cranial nerves 2-12 grossly intact, deep tendon reflexes 2+ symmetrical, motor strength normal upper and lower extremities, sensory exam intact. PSYCH: a lert, oriented , thought process logical, goal directed , speech clear , good eye contact , cooperative with exam , cognitive function intact. ? Assessment: * Assessment: 1. H TN (hypertension) - I10 (Primary), His blood pressure is currently stable at 121/67 and no change in his regimen is needed today. 2 . D iabetes mellitus - E11.9, His diabetes has been well controlled. No change in his medications was necessary today. 3 . M ixed hyperlipidemia - E78.2, His lipids are in near target range. He is tolerating all of his medications well. No change in his regimen was made. 4 . A sthma - J45.909, He reports no difficulty with breathing since his last visit. He tolerated the hot weather of the summer without difficulty. 5 . A nemia - D64.9, He has progressed since his last visit. It is normochromic and normocytic. He will continue observation at this point. Periodic blood work will be done. No bleeding has been documented. 6. I leostomy in place - Z93.2 7 . U rothelial carcinoma - C68.9, There is no sign of recurrent disease at this time. The ileostomy is functioning well. 8 . H ypothyroid - E03.9, He has been compliant with his thyroid medication and has no side effects. Plan: * Treatment: 2. D iabetes mellitus L AB: PROFILE, FASTING (COMPREHENSIVE METABOLIC) L AB: CBC WITH AUTO DIFF L AB: Lipid Panel L AB: Hemoglobin A1c 3. M ixed hyperlipidemia L AB: PROFILE, FASTING (COMPREHENSIVE METABOLIC) L AB: CBC WITH AUTO DIFF L AB: Lipid Panel L AB: Hemoglobin A1c * Procedure Codes: * Preventive Medicine: DM Care Plan: P atient Lifestyle Goals P atient wants to be able to manage diabetes without too much effort. T reatment Goals H bA1C < 7.0, Blood Sugars less than < 115. B arriers n o barriers. S elf-Managment Goals W ork on weight loss, with a goal of losing 1 lb per week. * Follow Up: 4 Months (Reason: OV) * Images: * Sign off status: Completed true * Provider: Yahaira Ziegler MD Date: 0 12/29/2023 Generated for Ana cabrera/Linden/eTarmanismitting on: 1 08/14/2024 09:51 PM EST History and Physical Notes * HPI (History of Present Illness) Category Sub-Category Detail Notes COVID-19 Screening Questions Have you had any new onset fever, chills, cough, congestion, sore throat, shortness of breath, muscle aches?: No Have you been exposed to the virus withi n the last 10 days?: No Have you travelled internationally in last 10 days?: No Have you been exposed to COVID-19 in the past?: No Examination Category Sub-Category Detail Notes General Examination GENERAL APPEARANCE: pleasant , well nourished, well developed, in no acute distress, calm and relaxed , elderly man HEAD: atraumatic, normocep halic EYES: eomi, perrla, anicte tay, conjugate EARS: normal NOSE: septum intact NECK/THYROID: no jugular venous di stention, no carotid bruit, thyroid normal HEART: no clicks, gallops, murmurs, or rubs, regular rhythm, S1, S2 normal, no s3, or vascular bruits LUNGS: clear to auscultatio n ABDOMEN: bowel sounds normal, no ascites, no organomegaly, no mass, Normal functioning ileostomy midabdomen with normal-appearing urine NEUROLOGIC: alert and oriented, cranial nerves 2-12 grossly intact, deep tendon reflexes 2+ symmetrical, motor strength normal upper and lower extremities, sensory exam intact SKIN: no suspicious lesion s, anicteric PERIPHERAL PULSES: normal BREASTS: no masses palpable b ilaterally MUSCULOSKELETAL: extremities unremark able, no clubbing, cyanosis or edema LYMPH NODES: no enlarged lymph no jean carlos,spleen normal RECTAL EXAM: not examined PSYCH: alert, oriented , th ought process logical, goal directed , speech clear , good eye contact , cooperative with exam , cognitive function intact ORAL CAVITY: normal, unremarkable
--- OUTSIDE RECORDS SUMMARY | 2024-05-02 10:30 | XMS_ITS ---
Author Organization Darrian Ziegler III, MD Address [address] [place] [place] [address] Care Team Providers Care Fresh Foods Clerk Name Role Phone Tony PINK, [facility] Primary Care Provider Dr. Darrian Smith III Unavailable [phone] Allergies Allergen (clinical drug ingredient) Drug/Non Drug [...] Date Provider Diagnosis Darrian Ziegler III, MD [address] [place] [address] [place], [place] [address] 05/02/2024 Darrian Ziegler HTN (hypertension) I 10 [...] the liver has been done by his backpackers manager, Dr. Burnett. It showed thickening of the [...] Provider Name:Darrian Ziegler , 06/21/2025 03:30:00 PM, [address] [place] [address] [address], [place], [address], Provider Name:Darrian Ziegler , 12/11/2025 02:00:00 PM, [address] [place] [address] [address], [place], [address], Progress Notes * Zehra AGOSTO KDOB: (74 yo M)Acc No.[id number]:05/02/2024 Progress Notes Patient: Candelario GALICIAguylinnearoseanne Sissy Provider: Yahaira Ziegler MD :1950 A ge:74 Y S ex:Male Date:05/02/2024 Address:[address] [place], [place] [phone] Pcp:Hilary Jimenez MD Subjective: * Chief Complaints: [...] ggressive non-smoker Quentin olivares was born in [facility] and now lives in [place], [place]. He is and has several children. [...] the liver has been done by his backpackers manager, Dr. Burnett. It showed thickening of the [...] 0 05/02/2024 Generated for Ana cabrera/Linden/Reneeitting on: 08/14/2024 09:49 PM EST History and Physical Notes * [...]
--- OUTSIDE RECORDS SUMMARY | 2024-12-26 04:20 | XMS_ITS ---
Author Organization [facility] Address 10 [facility] [address] [place] [address] Care Team Providers Care Poultry Cleaner Name Role Phone Hilary Jimenez Primary Care Provider Unavailab Joe Hardy Jr [phone] REASON FOR VISIT cirrhosis Encounters Encounter Location Date Provider Diagnosis [facility] [address] [facility] [address] [place] [address] 12/26/2024 Joe Burnett Jr Plan Of Treatment Next Appt Details Provider Name:Joe estrada Jr, 05/24/2026 01:35:00 PM, [address] [facility], [address], [place], [address], Progress Notes * AGOSTO, Zehra KDOB: (75 yo M)Acc No.[id number]:12/26/2024 Progress Notes Patient: Candelario GALICIAchandu Sissy Provider: Symone Burnett MD :1950 A ge:74 Y S ex:Male Date:12/26/2024 Address:[address] [place] [address] Pcp:Hilary Jimenez Subjective: * Chief Complaints: * [...] 0 12/26/2024 Generated for Ana cabrera/Linden/Nigel on: 08/14/2024 09:51 PM EST
--- OUTSIDE RECORDS SUMMARY | 2024-12-27 12:00 | XMS_ITS ---
Author Organization Darrian Ziegler III, MD Address [address] [facility] [place] [address] Care Team Providers Care Director Of Agronomy Name Role Phone Tony PINK, Hilary Primary Care Provider Dr. Darrian Smith III REASON FOR VISIT Followup Encounters Encounter Location Date Provider Diagnosis Darrian Ziegler III, MD [address] [place] [address] [place] [address] 12/27/2024 Darrian Ziegler Plan Of Treatment Next Appt Details Provider Name:Darrian Ziegler , 06/21/2025 03:30:00 PM, [address] [place] [address] [place], [address], Provider Name:Darrian Ziegler , 12/11/2025 02:00:00 PM, [address] [place] [address] [place], [address], Progress Notes * Zehra AGOSTO KDOB: (75 yo M)Acc No.[id number]:12/27/2024 Progress Notes Patient: Zehra GALICIA Provider: Yahaira Ziegler MD :1950 A ge:74 Y S ex:Male Date:12/27/2024 Phone: Address:[address] [place] [address] Pcp:Hilary Jimenez MD Subjective: * Chief Complaints: [...] 0 12/27/2024 Generated for Ana cabrera/Linden/Nigel on: 08/14/2024 09:50 PM EST
--- OUTSIDE RECORDS SUMMARY | 2025-01-31 05:15 | XMS_ITS ---
Author Organization Darrian Ziegler III, MD Address [address] [place] [address] Care Team Providers Care Costume Draper Name Role Phone Tony PINK, [facility] Primary Care Provider Dr. Darrian Smith III Unavailable Allergies Allergen (clinical drug ingredient) Drug/Non Drug Allergy documented on EMR Reaction Allergy Type Onset Date Status aspirin Aspirin Unknown Drug Allergy Active Motrin Unknown Drug Allergy Active REASON FOR VISIT hypertension, asthma, diabetes, hypothyroid, bladder cancer, cirrhosis, BPH Medications Medication SIG (Take, Route, Frequency, Duration) Notes Start Date End Date Status Multivitamin Active Symbicort 160-4.5 MCG/ACT as directed Inhalation Active Albuterol Sulfate HFA 108 (90 Base) MCG/ACT Inhalation Active B Complex Active Folic Acid 1 MG 1 tablet Orally Once a day 01/31/2025 Active metFORMIN HCl 500 MG 1 tablet with a dick l Orally Twice a day Active Atorvastatin Calcium 20 MG Oral Active Januvia 50 MG 1 tablet Orally Once a day Active Ciprofloxacin HCl 500 MG Oral Active Montelukast Sodium 10 MG 1 tablet Orally Once a day Active Dulcolax 5 MG 1 tablet as needed Orally Once a day Active Iron (Ferrous Sulfate) 325 (65 Fe) MG 1 tablet Orally Once a day Active Social History Tobacco Use: Social History Observation Description Date Details (start date - stop date) Never Smoker NA - NA Tobacco Use/Smoking Question Answer Notes Patient is a nonsmoker Additional Findings: Tobacco Non-User Aggressive non-smoker Vital Signs Temperature 97.3 degrees Fahrenheit 02/01/20 25 Blood pressure systolic 139 mm Hg 02/01/20 25 Blood pressure diastolic 62 mm Hg 025 Heart Rate 70 /min 01/31/2025 Height 61 in 01/31/2025 Weight 130 lbs 01/31/2025 BMI 24.56 kg/m2 01/31/2025 Encounters Encounter Location Date Provider Diagnosis Darrian Ziegler III, MD [address] [place] [address] DR [place]OSET[place]QUER[place], KAREN [address] 01/31/2025 Darrian Ziegler Urothelial carcinoma C68.9 ; Cirrhosis of liver without ascites, unspecified hepatic cirrhosis type K74.60 ; HTN (hypertension) I10 ; Hypothyroid E03.9 ; Anemia, unspecified type D64.9 ; Benign prostatic hyperplasia with lower urinary tract symptoms N40.1 ; Ileostomy in place Z93.2 and Diabetes mellitus E11.9 Assessments Encounter Date Diagnosis (ICD Code) Assessment Notes Treatment Notes Treatment Clinical Notes 01/31/2025 Urothelial carcinoma (ICD-10 - C68.9) There is no sign of recurrent disease at this time. The ileostomy is functioning well. 01/31/2025 Cirrhosis of liver without ascites, unspecified hepatic cirrhosis type (ICD-10 - K74.60) On the MRI of the liver has been done by his project control analyst, Dr. Burnett. It showed thickening of the renal pelvis which will be referred to urology. It also showed 2 enhancing masses in the liver 1 being 1.1 cm equivocal for hepatocellular carcinoma. This will be followed. An alpha-fetoprotein will be obtained. 01/31/2025 HTN (hypertension) (ICD-10 - I10) His blood pressure is currently stable at 139/62 and no change in his regimen is needed today. 01/31/2025 Hypothyroid (ICD-10 - E03.9) He remains euthyroid. No change in his medication was needed. 01/31/2025 Anemia, unspecified type (ICD-10 - D64.9) He has a mild anemia which is likely from hypersplenism and chronic disease. He has had no bleeding. It is stable. 01/31/2025 Benign prostatic hyperplasia with lower urinary tract symptoms (ICD-10 - N40.1) He rises from sleep once or twice a night to urinate depending upon fluid intake. We reviewed lifestyle modification she could make to reduce nocturia. 01/31/[address] (ICD-10 - Z93.2) The urine in the bag appeared to be completely normal. He has had no bleeding. The ostomy is functioning well. 01/31/2025 Diabetes mellitus (ICD-10 - E11.9) His diabetes has been well controlled. No change in his medications was necessary today. Plan Of Treatment Medication Medication Name Sig Start Date Stop Date Notes Multivitamin Symbicort 160-4.5 MCG/ACT as directed Inhalation Albuterol Sulfate HFA 108 (9 0 Base) MCG/ACT Inhalation B Complex Folic Acid 1 MG 1 tablet Orally Once a day 01/31/2025 metFORMIN HCl 500 MG 1 tablet with a dick l Orally Twice a day Atorvastatin Calcium 20 MG Oral Januvia 50 MG 1 tablet Orally Once a day Ciprofloxacin HCl 500 MG Oral Montelukast Sodium 10 MG 1 tablet Orally Once a day Dulcolax 5 MG 1 tablet as needed O rally Once a day Iron (Ferrous Sulfate) 325 ( 65 Fe) MG 1 tablet Orally Once a day Pending Test Test Name Order Date PROFILE, FASTING (COMPREHENSIVE METABOLI C) 01/31/2025 PSA, TOTAL 01/31/2025 CBC w DIFF 01/31/2025 ALPHA-FETOPROTEIN,TUMOR MARKER Ferritin 01/31/2025 Lipid Panel 01/31/2025 Folate 01/31/2025 Next Appt Details Follow Up: 3 Months, Reason: OV Provider Name:Darrian Ziegler , 06/21/2025 03:30:00 PM, [address] [place] [address] [place], [place], [phone], Provider Name:Darrian Zeigler , 12/11/2025 02:00:00 PM, [address] [place] [address] BUDDY BOYD, KAREN [place], [phone], Progress Notes * Zehra AGOSTO KDOB: (74 yo M)Acc No.[id number]:01/31/2025 Progress Notes Patient: Kana GALICIArichardra Sheehan Provider: Yahaira Ziegler MD :1950 A ge:74 Y S ex:Male Date:01/31/2025 Phone: Address:[address] [place] [phone] Pcp:Hilary Jimenez MD Subjective: * Chief Complaints: * H ypertensionAsthmaDiabetesHypothyroidBladder cancerCirrhosisBPH * HPI: C OVID-19 Screening: He returns for medical management. He has had no further difficulties with liver disease. His appetite is good and he has no peripheral edema. He is feeling happy healthy and well. His urostomy is working well. There has been no sign of recurrent bladder cancer. His blood work was reviewed. He is rising from sleep once or twice a night to urinate depending upon fluid intake. He has had no difficulty with asthma recently. His diabetes is controlled. His blood pressure was normal today. Questions H ave you had any new onset fever, chills, cough, congestion, sore throat, shortness of breath, muscle aches? N o * ROS: G eneral/Constitutional: pain [...] non-smoker Quentin olivares was born in [facility] and now lives in [place], [place]. He is and has several children. He is currently retired. * Medications: T akingSymbicort 160-4.5 MCG/ACT Aerosol as directed Inhalation B Complex Multivitamin Dulcolax 5 MG Tablet Delayed Release 1 tablet as needed Orally Once a day Iron (Ferrous Sulfate) 325 (65 Fe) MG Tablet 1 tablet Orally Once a day Montelukast Sodium 10 MG Tablet 1 tablet Orally Once a day Ciprofloxacin HCl 500 MG Tablet Oral Januvia 50 MG Tablet 1 tablet Orally Once a day Atorvastatin Calcium 20 MG Tablet Oral Folic Acid 1 MG Tablet 1 tablet Orally Once a day , stop date 03/02/2025metFORMIN HCl 500 MG Tablet 1 tablet with a meal Orally Twice a day Albuterol Sulfate HFA 108 (90 Base) MCG/ACT Aerosol Solution Inhalation Taking Symbicort 160-4.5 MCG/ACT Aerosol as directed Inhalation Taking B Complex Taking Multivitamin Taking Dulcolax 5 MG Tablet Delayed Release 1 tablet as needed Orally Once a day Taking Iron (Ferrous Sulfate) 325 (65 Fe) MG Tablet 1 tablet Orally Once a day Taking Montelukast Sodium 10 MG Tablet 1 tablet Orally Once a day Taking Ciprofloxacin HCl 500 MG Tablet Oral Taking Januvia 50 MG Tablet 1 tablet Orally Once a day Taking Atorvastatin Calcium 20 MG Tablet Oral Taking Folic Acid 1 MG Tablet 1 tablet Orally Once a day , stop date 03/02/2025Taking metFORMIN HCl 500 MG Tablet 1 tablet with a meal Orally Twice a day Taking Albuterol Sulfate HFA 108 (90 Base) MCG/ACT Aerosol Solution Inhalation DiscontinuedTelmisartan 80 MG Tablet 1 tablet Orally Once a day Folic Acid 1 MG Tablet 1 tablet Orally Once a day Ferrous Sulfate 325 (65 Fe) MG Tablet 1 tablet Orally Three times a Week Methenamine Hippurate 1 GM Tablet 1 tablet Orally Twice a day Vitamin C Medication List reviewed and reconciled with the patientDiscontinued Telmisartan 80 MG Tablet 1 tablet Orally Once a day Discontinued Folic Acid 1 MG Tablet 1 tablet Orally Once a day Discontinued Ferrous Sulfate 325 (65 Fe) MG Tablet 1 tablet Orally Three times a Week Discontinued Methenamine Hippurate 1 GM Tablet 1 tablet Orally Twice a day Discontinued Vitamin C Medication List reviewed and reconciled with the patient * Allergies: Luke Santos[Allergies Verified] Objective: * Vitals: H t: 61, Wt:130, BMI:24.56, BP:139/62, HR:70, Temp:97.3, Wt-k.97. * P ast Orders: L ab:SLIDE REVIEW (Order Date - 01/26/2025) (Collection Date & Time - 01/26/2025 09:17 AM) Value Reference Range SLIDE REVIEW VERIFIED - Lab:Complete Blood Count Aut o Diff * Collection Date 01/26/2025 01/26/2025 12/18/2023 Collection Time 09:17 AM 09:17 AM 10:47 AM Order Date 01/26/2025 01/26/2025 12/18/2023 White Blood Count 7.4 (Ref Range: 4.8-10.8 X10*3/uL) 7.4 (Ref Range: 4.8-10.8 X10*3/uL) 8.3 (Ref Range: 4.8-10.8 X10*3/uL) Red Blood Count 3.10 L (Ref Range: 4.60-5.80 X10*6/uL) 3.10 L (Ref Range: 4.60-5.80 X10*6/uL) 3.24 L (Ref Range: 4.60-5.80 X10*6/uL) Hemoglobin 10.1 L (Ref Range: 14.0-18.0 g/dl) 10.1 L (Ref Range: 14.0-18.0 g/dl) 10.7 L (Ref Range: 14.0-18.0 g/dl) Hematocrit 31.1 L (Ref Range: 42.0-52.0 %) 31.1 L (Ref Range: 42.0-52.0 %) 31.2 L (Ref Range: 42.0-52.0 %) Mean Corpuscular Volume 100.3 H (Ref Range: 80.0-98.0 fL) 100.3 H (Ref Range: 80.0-98.0 fL) 96.3 (Ref Range: 80.0-98.0 fL) Mean Corpuscular Hemoglobin 32.6 (Ref Range: 27.0-33.0 pg) 32.6 (Ref Range: 27.0-33.0 pg) 33.0 (Ref Range: 27.0-33.0 pg) Mean Corpuscular HGB Conc 32.5 (Ref Range: 31.0-36.0 g/dl) 32.5 (Ref Range: 31.0-36.0 g/dl) 34.3 (Ref Range: 31.0-36.0 g/dl) Red Cell Distribution Width 15.9 (Ref Range: 11.0-16.0 %) 15.9 (Ref Range: 11.0-16.0 %) 12.6 (Ref Range: 11.0-16.0 %) Platelet Count 144 L (Ref Range: 160-400 X10*3/uL) 144 L (Ref Range: 160-400 X10*3/uL) 224 (Ref Range: 160-400 X10*3/uL) Mean Platelet Volume 10.9 (Ref Range: 9.4-12.4 fL) 10.9 (Ref Range: 9.4-12.4 fL) 10.0 (Ref Range: 9.4-12.4 fL) Neutrophils Percent Auto 50.2 (Ref Range: 45-73 %) 50.2 (Ref Range: 45-73 %) 73.3 H (Ref Range: 45-73 %) Imm Gran Pct Auto 0.4 (Ref Range: 0.0-0.4 %) 0.4 (Ref Range: 0.0-0.4 %) 1.2 H (Ref Range: 0.0-0.4 %) Lymphocytes Percent Auto 20.0 (Ref Range: 20-40 %) 20.0 (Ref Range: 20-40 %) 13.9 L (Ref Range: 20-40 %) Monocytes Percent Auto 7.4 (Ref Range: 2-11 %) 7.4 (Ref Range: 2-11 %) 7.3 (Ref Range: 2-11 %) Eosinophils Percent Auto 20.9 H (Ref Range: 0-4 %) 20.9 H (Ref Range: 0-4 %) 3.7 (Ref Range: 0-4 %) Basophils Percent Auto 1.1 (Ref Range: 0-2 %) 1.1 (Ref Range: 0-2 %) 0.6 (Ref Range: 0-2 %) NRBC Pct Auto 0.0 (Ref Range: 0.0-0.2 /100WBC) 0.0 (Ref Range: 0.0-0.2 /100WBC) 0.0 (Ref Range: 0.0-0.2 /100WBC) Neutrophils Absolute Auto 3.7 (Ref Range: 2.0-8.3 x10*3/uL) 3.7 (Ref Range: 2.0-8.3 x10*3/uL) 6.1 (Ref Range: 2.0-8.3 x10*3/uL) Imm Gran Abs Auto 0.03 (Ref Range: 0.00-0.03 X10*3/uL) 0.03 (Ref Range: 0.00-0.03 X10*3/uL) 0.10 H (Ref Range: 0.00-0.03 X10*3/uL) Lymphocytes Absolute Auto 1.5 (Ref Range: 1.2-4.9 X10*3/uL) 1.5 (Ref Range: 1.2-4.9 X10*3/uL) 1.2 (Ref Range: 1.2-4.9 X10*3/uL) Monocytes Absolute Auto 0.6 (Ref Range: 0.1-1.2 X10*3/uL) 0.6 (Ref Range: 0.1-1.2 X10*3/uL) 0.6 (Ref Range: 0.1-1.2 X10*3/uL) Eosinophils Absolute Auto 1.6 H (Ref Range: 0.0-0.4 X10*3/uL) 1.6 H (Ref Range: 0.0-0.4 X10*3/uL) 0.3 (Ref Range: 0.0-0.4 X10*3/uL) Basophils Absolute Auto 0.1 (Ref Range: 0.0-0.2 X10*3/uL) 0.1 (Ref Range: 0.0-0.2 X10*3/uL) 0.1 (Ref Range: 0.0-0.2 X10*3/uL) NRBC Abs Auto 0.000 (Ref Range: 0.0-0.012 X10*3/uL) 0.000 (Ref Range: 0.0-0.012 X10*3/uL) 0.000 (Ref Range: 0.0-0.012 X10*3/uL) * Lab:Kristopher gross Fast * Collection Date 01/26/2025 04/15/2024 12/18/2023 Collection Time 09:17 AM 10:27 AM 10:47 AM Order Date 01/26/2025 04/15/2024 12/18/2023 Sodium 138 (Ref Range: 135-145 mmol/L) 138 (Ref Range: 135-145 mmol/L) 132 L (Ref Range: 135-145 mmol/L) Bilirubin Total 0.7 (Ref Range: 0.0-1.0 mg/dL) 0.5 (Ref Range: 0.0-1.0 mg/dL) 0.8 (Ref Range: 0.0-1.0 mg/dL) Aspartate Amino Transferase 62 H (Ref Range: 5-37 U/L) 43 H (Ref Range: 5-37 U/L) 43 H (Ref Range: 5-37 U/L) Alanine Aminotransferase 35 (Ref Range: 0-40 U/L) 36 (Ref Range: 0-40 U/L) 29 (Ref Range: 0-40 U/L) Total Protein 7.4 (Ref Range: 6.5-8.0 g/dL) 7.1 (Ref Range: 6.5-8.0 g/dL) 8.7 H (Ref Range: 6.5-8.0 g/dL) Albumin Level 3.7 (Ref Range: 3.5-5.0 g/dL) 3.7 (Ref Range: 3.5-5.0 g/dL) 3.6 (Ref Range: 3.5-5.0 g/dL) Alkaline Phosphatase 262 H (Ref Range: 39-117 U/L) 196 H (Ref Range: 39-117 U/L) 282 H (Ref Range: 39-117 U/L) Potassium 4.2 (Ref Range: 3.3-5.1 mmol/L) 4.8 (Ref Range: 3.3-5.1 mmol/L) 4.1 (Ref Range: 3.3-5.1 mmol/L) Chloride 112 H (Ref Range: 96-108 mmol/L) 112 H (Ref Range: 96-108 mmol/L) 106 (Ref Range: 96-108 mmol/L) Carbon Dioxide 21 L (Ref Range: 22-29 mmol/L) 21 L (Ref Range: 22-29 mmol/L) 16 L (Ref Range: 22-29 mmol/L) Anion Gap 9 L (Ref Range: 12-20) 10 L (Ref Range: 12-20) 14 (Ref Range: 12-20) Blood Urea Nitrogen 15 (Ref Range: 9-16 mg/dL) 23 H (Ref Range: 9-16 mg/dL) 14 (Ref Range: 9-16 mg/dL) Creatinine 1.09 (Ref Range: 0.5-1.4 mg/dL) 1.22 (Ref Range: 0.5-1.4 mg/dL) 1.21 (Ref Range: 0.5-1.4 mg/dL) Estimated Glomerular Filt Rate > 60 58 58 Glucose Fasting 110 H (Ref Range: 60-99 mg/dL) 94 (Ref Range: 60-99 mg/dL) 164 H (Ref Range: 60-99 mg/dL) Calcium 9.2 (Ref Range: 8.4-10.2 mg/dL) 9.3 (Ref Range: 8.4-10.2 mg/dL) 9.5 (Ref Range: 8.4-10.2 mg/dL) * Lab:Lipid Panel * Collection Date 01/26/2025 04/15/2024 12/18/2023 Collection Time 09:17 AM 10:27 AM 10:47 AM Order Date 01/26/2025 04/15/2024 12/18/2023 Triglycerides 95 (Ref Range: <150 mg/dL) 81 (Ref Range: <150 mg/dL) 92 (Ref Range: <150 mg/dL) Cholesterol 148 (Ref Range: <200 mg/dL) 150 (Ref Range: <200 mg/dL) 138 (Ref Range: <200 mg/dL) LDL Cholesterol Calculated 80 (Ref Range: <100 mg/dL) 80 (Ref Range: <100 mg/dL) 90 (Ref Range: <100 mg/dL) HDL Cholesterol 49 (Ref Range: >40 mg/dL) 54 (Ref Range: >40 mg/dL) 30 L (Ref Range: >40 mg/dL) * Lab:Prostate Specific Antige n * Collection Date 01/26/2025 12/18/2023 Collection Time 09:17 AM 10:47 AM Order Date 01/26/2025 12/18/2023 Prostate Specific Antigen < 0.10 (Ref Range: <0.05-4.0 ng/mL) < 0.10 (Ref Range: <0.05-4.0 ng/mL) * Examination: G eneral Examination: GENERAL APPEARANCE: p leasant, well nourished, well developed, in no acute distress, calm and relaxed, man, man. HEAD: a traumatic, normocephalic. EYES: e [...] normal, no ascites, no organomegaly, no mass, liver nodular, urostomy left lower quadrant. RECTAL EXAM: n ot examined. MUSCULOSKELETAL: e xtremities unremarkable, no clubbing, cyanosis or edema. PERIPHERAL PULSES: n ormal. NEUROLOGIC: a lert and oriented, cranial nerves 2-12 grossly intact, deep tendon reflexes 2+ symmetrical, motor strength normal upper and lower extremities, sensory exam intact. PSYCH: a lert, oriented. Assessment: * Assessment: 1. C irrhosis of liver without ascites, unspecified hepatic cirrhosis type - K74.60 (Primary)? Notes :On the MRI of the liver has been done by his project control analyst, Dr. Burnett. It showed thickening of the renal pelvis which will be referred to urology. It also showed 2 enhancing masses in the liver 1 being 1.1 cm equivocal for hepatocellular carcinoma. This will be followed. An alpha-fetoprotein will be obtained. 2 . U rothelial carcinoma - C68.9 N otes :There is no sign of recurrent disease at this time. The ileostomy is functioning well. 3 . H TN (hypertension) - I10 N otes :His blood pressure is currently stable at 139/62 and no change in his regimen is needed today. 4 . H ypothyroid - E03.9 N otes :He remains euthyroid. No change in his medication was needed. 5 . A nemia, unspecified type - D64.9 N otes :He has a mild anemia which is likely from hypersplenism and chronic disease. He has had no bleeding. It is stable. 6 . B enign prostatic hyperplasia with lower urinary tract symptoms - N40.1? Notes :He rises from sleep once or twice a night to urinate depending upon fluid intake. We reviewed lifestyle modification she could make to reduce nocturia. 7 . I leostomy in place - Z93.2 N otes :The urine in the bag appeared to be completely normal. He has had no bleeding. The ostomy is functioning well. 8 . D iabetes mellitus - E11.9 N otes :His diabetes has been well controlled. No change in his medications was necessary today. Plan: * Treatment: 2. H ypothyroid L AB: PROFILE, FASTING (COMPREHENSIVE METABOLIC) L AB: PSA, TOTAL L AB: CBC w DIFF L AB: ALPHA-FETOPROTEIN,TUMOR MARKER L AB: Ferritin L AB: Lipid Panel L AB: Folate 3. A nemia, unspecified type L AB: PROFILE, FASTING (COMPREHENSIVE METABOLIC) L AB: PSA, TOTAL L AB: CBC w DIFF L AB: ALPHA-FETOPROTEIN,TUMOR MARKER L AB: Ferritin L AB: Lipid Panel L AB: Folate 4. B enign prostatic hyperplasia with lower urinary tract symptoms L AB: PROFILE, FASTING (COMPREHENSIVE METABOLIC) L AB: PSA, TOTAL L AB: CBC w DIFF L AB: ALPHA-FETOPROTEIN,TUMOR MARKER L AB: Ferritin L AB: Lipid Panel L AB: Folate 5. D iabetes mellitus L AB: PROFILE, FASTING (COMPREHENSIVE METABOLIC) L AB: PSA, TOTAL L AB: CBC w DIFF L AB: ALPHA-FETOPROTEIN,TUMOR MARKER L AB: Ferritin L AB: Lipid Panel L AB: Folate * Procedure Codes: * Preventive Medicine: DM Care Plan: P atient Lifestyle Goals P atient wants to be able to manage diabetes without too much effort. T reatment Goals B lood Sugars less than < 115, HbA1C < 7.0. B arriers n o barriers. S elf-Managment Goals W ork on weight loss, with a goal of losing 1 lb per week, Increase exercise to 3 times a week for 30 mins, Stop drinking juice and/or soda, replace with more water. * Follow Up: 3 Months (Reason: OV) * Images: * Sign off status: Completed true * Provider: Yahaira Ziegler MD Date: 0 01/31/2025 Generated for Ana cabrera/Linden/Reneeitting on: 08/14/2024 09:49 PM EST History and Physical Notes * HPI (History of Present Illness) Category Sub-Category Detail Notes COVID-19 Screening Questions Have you had any new onset fever, chills, cough, congestion, sore throat, shortness of breath, muscle aches?: No Examination Category Sub-Category Detail Notes General Examination GENERAL APPEARANCE: pleasant , well nourished, well developed, in no acute distress, calm and relaxed, man, man HEAD: atraumatic, normocep halic EYES: eomi, perrla, anicte tay, conjugate EARS: normal NOSE: septum intact NECK/THYROID: no jugular venous di stention, no carotid bruit, thyroid normal HEART: no clicks, gallops, murmurs, or rubs, regular rhythm, S1, S2 normal, no s3, or vascular bruits LUNGS: clear to auscultatio n ABDOMEN: bowel sounds normal, no ascites, no organomegaly, no mass, liver nodular, urostomy left lower quadrant NEUROLOGIC: alert and oriented, cranial nerves 2-12 [...]
--- OUTSIDE RECORDS SUMMARY | 2025-03-07 06:00 | XMS_ITS ---
Author Organization [facility] Address [address] [facility] [address] [place] [address] Care Team Providers Care Hot Walker Name Role Phone Hilary Jimenez Primary Care Provider Unavailab Joe Hardy Jr REASON FOR VISIT abn findings in stool Encounters Encounter Location Date Provider Diagnosis [facility] [place] Outpatient [address] [place] [id number] 03/07/2025 Joe Burnett Jr Plan Of Treatment Next Appt Details Provider Name:Joe estrada Jr, 05/24/2026 01:35:00 PM, [address] [facility], Suite [facility], [place], [address], Progress Notes * Zehra AGOSTO KDOB: (75 yo M)Acc No.[id number]:03/07/2025 EGD and COL/MAC Patient: Vance MCCLOUD Zehra Sheehan Provider: Symone Burnett MD :1950 A ge:74 Y S ex:Male Date:03/07/2025 Address:[address] [place] [phone] Pcp:Hilary Jimenez Subjective: * Chief Complaints: * [...] 0 03/07/2025 Generated for Ana cabrera/Linden/Nigel on: 08/14/2024 09:50 PM EST
--- OUTSIDE RECORDS SUMMARY | 2025-04-04 06:10 | XMS_ITS ---
Author Organization [facility] Address [address] [facility] [address] [place] [address] Care Team Providers Care Dimethylaniline Sulfator Operator Name Role Phone Hilary Jimenez Primary Care Provider Unavailab Joe Hardy Jr REASON FOR VISIT abnormal ct scan Encounters Encounter Location Date Provider Diagnosis [facility] [place] [address] [place] [id number] 04/04/2025 Joe Burnett Jr Plan Of Treatment Next Appt Details Provider Name:Joe estrada Jr, 05/24/2026 01:35:00 PM, [address] [facility], [address], [place], [address], Progress Notes * Zehra AGOSTO KDOB: (75 yo M)Acc No.[id number]:04/04/2025 EGD and COL/MAC Patient: Vance MCCLOUD Zehra Sheehan Provider: Symone Burnett MD :1950 A ge:75 Y S ex:Male Date:04/04/2025 Address:[address] [place] [phone] Pcp:Hilary Jimenez Subjective: * Chief Complaints: * [...] 0 04/04/2025 Generated for Ana cabrera/Linden/Nigel on: 08/14/2024 09:48 PM EST
--- OUTSIDE RECORDS SUMMARY | 2025-05-04 05:30 | XMS_ITS ---
Author Organization Darrian Ziegler III, MD Address [address] [address] Care Team Providers Care Executive Services Administrator Name Role Phone Tony PINK, [facility] Primary Care Provider Dr. Darrian Smith III Unavailable [phone] Allergies Allergen (clinical drug ingredient) Drug/Non Drug [...] Provider Diagnosis Darrian Ziegler III, MD [address] [place] [address] [place] [address] 05/04/2025 Darrian Ziegler HTN (hypertension) I 10 [...] the liver has been done by his lead installer, Dr. Burnett. It showed thickening of the [...] months, Reason: OV Provider Name:Darrian Ziegler , 06/21/2025 03:30:00 PM, [address] [place] [address] [address], [place], [phone], Provider Name:Darrian Ziegler , 12/11/2025 02:00:00 PM, [address] [place] [address] [address], [place], [phone], Progress Notes * Zehra AGOSTO KDOB: (75 yo M)Acc No.[id number]:05/04/2025 Progress Notes Patient: Zehra GALICIA Provider: Yahaira Ziegler MD :1950 A ge:75 Y S ex:Male Date:05/04/2025 Phone: Address:[address] [place], [place] [address], [id number] Pcp:Hilary Jimenez MD Subjective: * Chief Complaints: [...] next week with Dr. Darrian Rowe at [facility]. On examination today, he still has a [...] June 2025 to spend the winter in [facility] He says he will returrn in November [...] born in [place] and now lives in [place], [place]. He is and has several children. [...] reconciled with the patient * Allergies: Luke Tom[Allergies Verified] Objective: * Vitals: H t: [...] 0.000 (Ref Range: 0.0-0.012 X10*3/uL) * Lab:Kristopher العلي * Collection Date 04/14/2025 01/26/2025 04/15/2024 Collection [...] the liver has been done by his lead installer, Dr. Burnett. It showed thickening of the [...] MD Date: 0 05/04/2025 Generated for Ana cabrera/Linden/Reneeitting on: 08/14/2024 09:50 PM EST History and Physical Notes * [...]
--- OUTSIDE RECORDS SUMMARY | 2025-05-05 03:10 | XMS_ITS ---
Author Organization [facility] Address [address] [facility] [address] [place] [address] Care Team Providers Care Poultry Buyer Name Role Phone Hilary Jimenez Primary Care Provider Unavailab Joe Hardy Jr [phone] REASON FOR VISIT abnormal ct scan Encounters Encounter Location Date Provider Diagnosis [facility] Out[place] [address] [place] [phone] 05/05/2025 Joe Burnett Jr Plan Of Treatment Next Appt Details Provider Name:Joe estrada Jr, 05/24/2026 01:35:00 PM, [address] [facility], [address], [place], [address], Progress Notes * Zehra AGOSTO KDOB: (75 yo M)Acc No.[id number]:05/05/2025 EGD and COL/MAC Patient: Vance MCCLOUD Zehra Sheehan Provider: Symone Burnett MD :1950 A ge:75 Y S ex:Male Date:05/05/2025 Address:[address] [place] [phone] Pcp:Hilary Jimenez Subjective: * Chief Complaints: * [...] 0 05/05/2025 Generated for Ana cabrera/Linden/Nigel on: 08/14/2024 09:49 PM EST
--- OUTSIDE RECORDS SUMMARY | 2025-05-12 06:40 | XMS_ITS ---
Author Organization [facility] Address [address] [place] [address] Care Team Providers Care Livestock Slaughterer Name Role Phone Hilary Jimenez Primary Care [...] Active Encounters Encounter Location Date Provider Diagnosis [facility] [place] [address] [place], [place] [phone] 05/12/2025 Joe Burnett Jr Plan Of Treatment Next Appt Details Provider Name:Joe estrada Jr, 05/24/2026 01:35:00 PM, [address], [address], [place], [address], Progress Notes * Zehra AGOSTO KDOB: (75 yo M)Acc No.[id number]:05/12/2025 EGD and COL/MAC Patient: Zehra GALICIA Provider: Symone Burnett MD :1950 A ge:75 Y S ex:Male Date:05/12/2025 Address:[address] [place], [place] [phone] Pcp:Hilary Jimenez Subjective: * Chief Complaints: * [...] MD Date: Generated for Ana cabrera/Linden/Reneeitting on: 08/14/2024 09:49 PM EST
--- OUTSIDE RECORDS SUMMARY | 2025-06-05 08:29 | XMS_ITS ---
Author Organization Darrian Ziegler III, MD Address [address] [place] [address] [place] [address] Care Team Providers Care Network Diagnostic Support Specialist Name Role Phone Tony PINK, [facility] Primary Care Provider Dr. Darrian Smith III Unavailable REASON FOR VISIT AFP Lab/referral to [facility] gastro Encounters Encounter Location Date Provider Diagnosis Darrian Ziegler III, MD [address] [place] [address] [place] [address] 06/05/2025 Darrian Ziegler Cirrhosis of liver without ascites, unspecified hepatic cirrhosis type K74.60 Assessments Encounter Date Diagnosis (ICD Code) Assessment Notes Treat ment Notes Treatment Clinical Notes 06/05/2025 Cirrhosis of liver without ascites, unspecified hepatic cirrhosis type (ICD-10 - K74.60) Plan Of Treatment Pending Test Test Name Order Date ALPHA-FETOPROTEIN,TUMOR MARKER Next Appt Details Provider Name:Darrian Ziegler , 06/21/2025 03:30:00 PM, [address] [place] [address] [place], [address], Provider Name:Darrian Ziegler , 12/11/2025 02:00:00 PM, [address] [place] [address] [place], [address], Progress Notes * Zehra AGOSTO KDOB: (75 yo M)Acc No.[id number]:06/05/2025 Patient: Vance MCCLOUD Zehra Sissy :1950 A ge:75 Y S ex:Male Phone: Address: [address], [place], [address] Subjective: * Chief Complaints: * A FP Lab/referral to [facility] gastro * Medical History: * Surgical History: * Hospitalization/Major Diagno stic Procedure: * Medications: Objective: * Vitals: * Physical Examination: Assessment: * Assessment: 1. C irrhosis of liver without ascites, unspecified hepatic cirrhosis type - K74.60 ? Plan: * Treatment: * Procedure Codes: * true * Date: Generated for Ana cabrera/Linden/eTransmitting on: 08/14/2024 09:50 PM EST
--- OUTSIDE RECORDS SUMMARY | 2025-06-13 09:15 | XMS_ITS ---
Author Organization Darrian Ziegler III, MD Address [address] [place] [address] Care Team Providers Care Treasury Specialist Name Role Phone Tony PINK, [facility] Primary Care Provider Dr. Darrian Smith III Unavailable Allergies Allergen (clinical drug ingredient) Drug/Non Drug Allergy documented on EMR Reaction Allergy Type Onset Date Status aspirin Aspirin Unknown Drug Allergy Active Motrin Unknown Drug Allergy Active REASON FOR VISIT Follow up Medications Medication SIG (Take, Route, Frequency, Duration) [...] Tobacco Non-User Aggressive non-smoker Vital Signs Temperature 97.5 degrees Fahrenheit 06/13/20 25 Blood pressure systolic 162 mm Hg 06/13/20 25 Blood pressure diastolic 74 mm Hg 025 Heart Rate 93 /min 06/13/2025 Height 61 in 06/13/2025 Weight 131 lbs 06/13/2025 BMI 24.75 kg/m2 06/13/2025 Encounters Encounter Location Date Provider Diagnosis Darrian Ziegler III, MD [address] [place] [address] [place] [address] 06/13/2025 Darrian Ziegler HTN (hypertension) I10 Assessments Encounter Date Diagnosis (ICD Code) Assessment Notes Treatment Notes Treatment Clinical Notes 06/13/2025 HTN (hypertension) (ICD-10 - I10) His blood pressure is currently stable at 137/49 and no change in his regimen is needed today. Plan Of Treatment Medication Medication Name [...] Reason: O V Provider Name:Darrian Ziegler , 06/21/2025 03:30:00 PM, [address] [place] [address] [address], [place], [address], Provider Name:Darrian Ziegler , 12/11/2025 02:00:00 PM, [address] [place] [address] [address], [place], [address], Progress Notes * Zehra AGOSTO KDOB: (75 yo M)Acc No.[id number]:06/13/2025 Progress Notes Patient: Zehra GALICIA Provider: Yahaira Ziegler MD :1950 A ge:75 Y S ex:Male Date:06/13/2025 Phone: Address:[address] [place] [phone] Pcp:Hilary Jimenez MD Subjective: * Chief Complaints: * 1 . Follow up. * HPI: C OVID-19 Screening: Questions H ave you had any new [...] appetite d enies.?Diarrhea d enies. H eartburn d enies. N ausea d enies. R ectal bleeding?denies. V omiting d enies. H ematology: bruising d enies. p etechiae d enies. S wollen glands n one have been noted. G enitourinary: Frequent urination d enies. M usculoskeletal: Muscle aches d enies. P ainful joints d enies. S ciatica d enies. W eakness d enies. S kin: Itching d enies. R milagros d enies. S kin lesion(s)?denies. N eurologic: Difficulty speaking d enies. D izziness d enies.?Headache d enies. L ow back pain d enies. P sychiatric: Depressed mood d enies. * Medical History: H TN (hypertension), Asthma, Diabetes mellitus, Hypothyroid, Normochromic normocytic anemia, Resected urothelial carcinoma of the bladder, Ileostomy, History of antibiotic treatment for tuberculosis, Benign prostatic hypertrophy, Cirrhosis of the liver, Hyperlipidemia, Recurrent pyelonephritis. * Surgical History: R adical cysectomy Appendectomy, ileal conduit 02/2020, Cataract surgery, left eye 2016, Cataract surgery, right eye 2019, Herniorrhaphy 02/2020. * Hospitalization/Major Diagno stic Procedure: B ladder CA 02/2020. * Family History: F ather: 88 yrs. [...] born in [place] and now lives in [place], [place]. He is and has several children. He is currently retired. * Medications: T aking Telmisartan 20 MG Tablet 1 tablet Orally Once a day , Taking Iron (Ferrous Sulfate) 325 (65 Fe) MG Tablet 1 tablet Orally Once a day , Taking Montelukast Sodium 10 MG Tablet 1 tablet Orally Once a day , Taking Atorvastatin Calcium 10 MG Tablet 1 tablet Orally Once a day , Taking Folic Acid 1 MG Tablet 1 tablet Orally Once a day , Taking Symbicort 160-4.5 MCG/ACT Aerosol as directed Inhalation , Taking Albuterol Sulfate HFA 108 (90 Base) MCG/ACT Aerosol Solution Inhalation , Medication List reviewed and reconciled with the patient * Allergies: M otrin, Aspirin. Objective: * Vitals: H t: 61, Wt:131, BMI:24.75, BP:162/74, HR:93, Temp:97.5, Wt-k.42. * P ast Orders: I cliff:SCREENING COLONOSCOPY (Order Date - 05/12/2025) Result: undefined [...] H (Ref Range: 20-250 ng/mL) * Lab:Comprehensive [place]. Pane l Fast * Collection Date 04/14/2025 [...] 8.4-10.2 mg/dL) 9.3 (Ref Range: 8.4-10.2 mg/dL) ???Lab:Alpha Fetoprotein (Order Date - 04/14/2025) (Collection Date & Time - 04/14/2025 09:50 AM)?ValueReference Range?Alpha Fetoprotein7.9A <6.1 - ng/mL * Lab:Complete Blood Count Aut o Diff [...] X10*3/uL) 0.000 (Ref Range: 0.0-0.012 X10*3/uL) * Lab:[facility] * Collection Date 04/14/2025 05/11/2023 05/06/2022 Collection Time 09:50 AM 10:09 AM 11:22 AM Order Date 04/14/2025 05/11/2023 05/06/2022 Folate 16.3 (Ref Range: > or = 4.0 ng/mL) 16.6 (Ref Range: > or = 4.0 ng/mL) > 20.0 (Ref Range: > or = 4.0 ng/mL) * Examination: G eneral Examination: GENERAL APPEARANCE: p leasant, well nourished, well developed, in no acute distress, calm and relaxed. HEAD: a traumatic, normocephalic. EYES: e jasper, [...] sounds normal, no ascites, no organomegaly, no mass. RECTAL EXAM: n ot examined. MUSCULOSKELETAL: e xtremities unremarkable, no clubbing, cyanosis or edema. PERIPHERAL PULSES: n ormal. NEUROLOGIC: a lert and oriented, cranial nerves 2-12 grossly intact, deep tendon reflexes 2+ symmetrical, motor strength normal upper and lower extremities, sensory exam intact. PSYCH: a lert, oriented. Assessment: * Assessment: 1. H TN (hypertension) - I10 N otes :His blood pressure is currently stable at 137/49 and no change in his regimen is needed today. Plan: * Treatment: * Follow Up: 1 Week (Reason: OV) * Images: * The named appointment provid er may or may not be the originator of this progress note, and it is not deemed complete until electronically signed by the appointment provider. Sign off status: Pending * Provider: Yahaira Ziegler MD Date: 08/13/2024 Generated for Aan cabrera/Linden/Reneeitting on: 08/14/2024 09:48 PM EST History and Physical Notes * HPI (History of Present Illness) Category Sub-Category Detail Notes COVID-19 Screening Questions Have you had any new onset fever, chills, cough, congestion, sore throat, shortness of breath, muscle aches?: No Examination Category Sub-Category Detail Notes General Examination GENERAL APPEARANCE: pleasant , well nourished, well developed, in no acute distress, calm and relaxed HEAD: atraumatic, normocep halic EYES: eomi, perrla, anicte tay, conjugate EARS: normal NOSE: septum intact NECK/THYROID: no jugular venous di stention, no carotid bruit, thyroid normal HEART: no clicks, gallops, murmurs, or rubs, regular rhythm, S1, S2 normal, no s3, or vascular bruits LUNGS: clear to auscultatio n ABDOMEN: bowel sounds normal, no ascites, no organomegaly, no mass NEUROLOGIC: alert and oriented, cranial nerves 2-12 [...]
--- NOTE | ~2025-06-14 | XR_ITS ---
CLINICAL HISTORY: Fever, sepsis 1 view chest x-ray Comparison: CT/REG/SR - CT CHEST WITHOUT IV CONTRAST - 05/05/25 11:31 EDT Findings: AP lordotic chest x-ray is obtained. Cardiac silhouette is within normal limits. No focal areas of consolidation. Mild emphysematous changes with areas of central scarring. No pleural effusion or pneumothorax. IMPRESSION: 1. No acute findings. This document has been electronically signed by: Michael Galeana MD on 06/14/2025 22:56:54
[2025-06-14 20:50] VITALS: BP 170/70; PULSE 98; O2SAT 98
[2025-06-14 21:23] VITALS: BP 164/71; PULSE 92; RESP 20; TEMP 39.5; O2SAT 99; BMI 21.3
--- NOTE | 2025-06-14 21:46 | ED.FEVER ---
HPI - Fever General Chief Complaint: Fever Stated Complaint: BODY ACHES X 2 DAYS Time Seen by Provider: 06/14/25 21:42 Source: patient, family and old records reviewed Mode of arrival: ambulatory Limitations: no limitations History of Present Illness ED Provider: DR. Blake HPI Narrative: 74-year-old male with background history of type 2 diabetes, HTN, HLD, bladder cancer s/p cystectomy and ileal loop urostomy history of sepsis and pyelonephritis, bacteremia patient presented today for evaluation of chills and fever, slight coughing, no sick contacts, no recent travel, no recent prolonged immobilization. No abdominal pain, no chest pain, no headache. Related Data Home Medications ?Medication ?Instructions ?Recorded ?Confirmed blood sugar diagnostic (FreeStyle #10 ea 04/18/21 01/05/24 Lite Strips) montelukast 10 mg tablet 10 mg PO DAILY 04/18/21 05/10/25 lancets 28 gauge (FreeStyle #100 ea 06/24/21 01/05/24 Lancets) folic acid 1 mg tablet 1 mg PO DAILY 12/10/21 05/10/25 albuterol sulfate 90 mcg/actuation 1 puff PO QID PRN Shortness Of 02/08/22 05/10/25 aerosol inhaler Breath atorvastatin 20 mg tablet 10 mg PO BEDTIME 03/01/25 05/10/25 telmisartan 20 mg tablet 20 mg PO DAILY 03/01/25 05/10/25 bisacodyl 5 mg tablet,delayed 5 mg PO DAILY constipation 03/21/25 05/10/25 release (Dulcolax (bisacodyl)) ascorbic acid (vitamin C) 1,000 mg 1,000 mg PO DAILY 05/10/25 05/10/25 tablet (Vitamin C) Previous Rx's ?Medication ?Instructions ?Recorded urinary bag 10 (Assura Urostomy #10 ea 04/28/25 Pouch) Ceraplus New Image 31469 #30 ea 05/18/25 Ceraplus New Image 63055 #30 ea 05/18/25 Urostomy Elodia 99236 #30 ea 05/18/25 sulfamethoxazole 800 1 tab PO BID UTI 14 days #28 tabs 05/18/25 mg-trimethoprim 160 mg tablet (Bactrim DS) adhesive tape 1 X 10 yard #120 ea 05/30/25 gauze bandage 4 X 4 #1,200 ea 05/30/25 ostomy supplies (MicroHesive Stoma #60 grams 05/30/25 Paste) Allergies Allergy/AdvReac Type Severity Reaction Status Date / Time aspirin Allergy Unknown Verified 06/14/25 21:24 Beta-Blockers AdvReac Unknown Verified 06/14/25 21:24 (Beta-Adrenergic Bloc ibuprofen AdvReac Unknown Verified 06/14/25 21:24 Review of Systems Review of Systems: All other systems are reviewed and are negative Constitutional: Reports as per HPI and Reports no additional constitutional complaints Eyes: Reports as per HPI and Reports no additional eye complaints Reports system reviewed and no additional complaints, except as documented Cardiovascular: Reports as per HPI and Reports no additional cardiovascular complaints Respiratory: Reports as per HPI and Reports no additional respiratory complaints Gastrointestinal: Reports as per HPI and Reports no additional gastrointestinal complaints Genitourinary: Reports no additional female genitourinary complaints Musculoskeletal: Reports no additional musculoskeletal complaints Skin/Breast: Reports system reviewed and no additional complaints, except as docu Psychiatric: Reports no additional psychiatric complaints Endocrine: Reports no additional endocrine complaints Hematologic/Lymphatic: Reports no additional hematologic/lymphatic complaints Allergic/Immunologic: Reports no additional allergic/immunologic complaints Reports system reviewed and no additional complaints, except as documented and Reports Abnormal speech present [facility] Past Medical History Medical History Aortic stenosis Complication of urostomy History of bladder cancer Abdominal distention Cirrhosis of liver HTN (hypertension) Acute hyponatremia Hydronephrosis Bladder cancer Asthma Diabetes Bladder cancer Incomplete emptying of bladder due to benign prostatic hyperplasia Complicated urinary tract infection Surgical History History of surgery History of ileal conduit Social History Social History Household Members: Spouse Housing: House Are you a primary manager wound care to a significant other at home: No Do you presently have visiting nurse or other home services: No Alcohol intake: never Comment: bedside Patient Tobacco Use Status: Never used Tobacco Smoked in Last 30 Days: No Use of substances other than those prescribed or required for medical reasons: No Advance Directives: No Advance Directives Information Provided: No Advance Directives Date on File: 03/12/25 Do you have a plan to hurt others: No Plan service: No Current occupational status: retired Physical Exam Vital Signs: Vital Signs: Last Vital Signs Temp 101.1 F H 06/14/25 22:42 Pulse 93 06/14/25 21:54 Resp 15 06/14/25 21:54 BP 167/74 H 06/14/25 21:54 Pulse Ox 100 06/14/25 21:54 O2 Del Method Room Air 06/14/25 21:54 BMI result Body Mass Index 21.3 Vital signs have been reviewed and appear to be correct. Blood pressure elevated. Heart rate normal. Respiratory rate normal. Temperature Elevated, Oxygen saturation normal. Appearance: Alert. Oriented X3. No acute distress. Head: Normal external exam. Normocephalic. Atraumatic. No Walsh signs noted. No raccoon eyes noted Eyes: PERRLA. EOMI. Conjunctiva and sclera normal. Eyelids normal. ENT: TM's Normal. Pharynx normal. Uvula midline. Moist mucous membranes. No trismus noted. No drooling noted. No muffled voice noted. Neck: Normal inspection. Neck supple. FROM. No adenopathy. Thyroid Normal. No meningeal signs. No neck mass noted. CVS: Normal heart rate and rhythm. Heart sound normal. No murmurs noted. Pulses normal throughout. Respiratory: No respiratory distress. Painless inspiration. Breath sounds normal. No wheezes/rales/rhonchi noted. Chest nontender. No accessory muscle usage noted or decreased air movement noted. Abdomen: Soft and nontender. Bowel sounds normal in all 4 quadrants. No distention noted. No organomegaly noted. No visible injury noted. Back: No CVA tenderness. Full range of motion noted. Skin: Skin warm and dry. Normal skin color. Normal skin turgor. No rashes/lesions/lacerations noted. Extremities: No lower extremity edema. Extremities exhibit normal range of motion. Extremities nontender. Neuro: Oriented X 3. Cranial nerve exam: II-XII are grossly intact No motor deficit. No sensory deficit. Reflexes normal. Course Reevaluation(s) Reevaluation #1: 75-year-old history of bladder cancer and cystectomy prone to UTIs with sepsis patient met criteria for SIRS no septic shock or severe sepsis received 1 dose of ceftriaxone / normal saline. Will admit for sepsis with UTI. Time: 23:14 Medications Administered Discontinued Medications Generic Name Dose Route Start Last Admin Trade Name Jj PRN Reason Stop Dose Admin Acetaminophen 1,000 mg in 100 mls @ 400 mls/hr 06/14/25 21:46 06/14/25 22:54 Ofirmev IV 06/14/25 22:00 Infused ONCE ONE Infusion Ceftriaxone Sodium 1 gm/ 50 mls @ 100 mls/hr 06/14/25 21:53 06/14/25 22:50 Sodium Chloride IV 06/14/25 22:22 Infused ONCE ONE Infusion Lactated Ringer's 1,000 mls @ 999 mls/hr 06/14/25 22:00 06/14/25 23:11 Lr IV 06/14/25 23:00 Infused .Q1H1M STEVEN Infusion Medical Decision Making Differential Diagnosis Differential Diagnoses: The differential diagnosis associated with the presentation includes ( UTI, sepsis, pneumonia, pneumothorax, pleural effusion, electrolyte derangement, dehydration, severe anemia.) Admission/Observation Consideration of admission/observation: Escalation of care including admission/observation considered Consult Healthcare Provider Management of the patient was discussed with: Hospitalist ( Dr. Yo) Lab Data MDM Lab Attestation statement: I reviewed the patient's lab results. 06/14/25 21:40 06/14/25 22:38 Labs: Lab Results 06/14/25 06/14/25 06/14/25 Range/Units 21:40 21:47 22:38 WBC 8.7 (4.8-10.8) X10*3/uL RBC 3.06 L (4.60-5.80) X10*6/uL Hgb 9.8 L (14.0-18.0) g/dl Hct 29.0 L (42.0-52.0) % MCV 94.8 (80.0-98.0) fL MCH 32.0 (27.0-33.0) pg MCHC 33.8 (31.0-36.0) g/dl RDW 14.5 (11.0-16.0) % Plt Count 103 L (160-400) X10*3/uL MPV 11.8 (9.4-12.4) fL Immature Gran % (Auto) 0.7 H (0.0-0.4) % Neut % (Auto) 79.5 H (45-73) % Lymph % (Auto) 12.5 L (20-40) % [place] % (Auto) 4.7 (2-11) % Eos % (Auto) 1.8 (0-4) % Baso % (Auto) 0.8 (0-2) % Lymph # (Auto) 1.1 L (1.2-4.9) X10*3/uL [place] # (Auto) 0.4 (0.1-1.2) X10*3/uL Eos # (Auto) 0.2 (0.0-0.4) X10*3/uL Baso # (Auto) 0.1 (0.0-0.2) X10*3/uL Abs Immat Gran (auto) 0.06 H (0.00-0.03) X10*3/uL Absolute Neuts (auto) 6.9 (2.0-8.3) x10*3/uL Absolute Nucleated RBC 0.000 (0.0-0.012) X10*3/uL Nucleated RBC % (auto) 0.0 (0.0-0.2) /100WBC Smear Tech's Comments VERIFIED PT 13.7 H (11.2-13.5) SEC INR 1.1 (0.9-1.1) APTT 36.5 H (26.7-34.1) SEC Sodium 130 L (135-145) mmol/L Potassium 3.7 (3.3-5.1) mmol/L Chloride 106 (96-108) mmol/L Carbon Dioxide 16 L (22-29) mmol/L Anion Gap 12 (12-20) BUN 21 H (9-16) mg/dL Creatinine 1.39 (0.5-1.4) mg/dL Estim Creat Clear Calc 33.2 Estimated GFR 50 Random Glucose 141 H (60-115) mg/dL Lactic Acid 2.0 (0.5-2.0) mmol/L Calcium 8.1 L D (8.4-10.2) mg/dL Total Bilirubin 0.6 (0.0-1.0) mg/dL Direct Bilirubin 0.4 (0.0-0.5) mg/dL AST 45 H (5-37) U/L ALT 21 (0-40) U/L Alkaline Phosphatase 258 H (39-117) U/L Total Protein 6.6 (6.5-8.0) g/dL Albumin 3.1 L (3.5-5.0) g/dL Urine Color Yellow Urine Appearance Clear Urine pH 6.0 (5.0-9.0) Ur Specific [place] 1.010 (1.005-1.025) Urine Protein 100 (2+) H (Neg-Trace) mg/dL Urine Glucose (UA) Negative (Negative) mg/dL Urine Ketones Negative (Negative) mg/dL Urine Blood Large (3+) H (Negative) Urine Nitrite Positive H (Negative) Ur Leukocyte Esterase Moderate (2+) H (Negative) Urine RBC >20 H (0-2) /HPF Urine WBC 21-50 H (0-5) /HPF Ur Squamous Epith Cells 0-2 (0-2) /HPF Urine Bacteria 4+ (None Seen) Hyaline Casts 0-2 (0-2) /LPF Influenza Type A (PCR) NEGATIVE (Negative) Influenza Type B (PCR) NEGATIVE (Negative) RSV RNA Qual (PCR) NEGATIVE (Negative) SARS-CoV-2 RNA (RT-PCR) NEGATIVE (Negative) Independent Interpretation I performed an independent interpretation of an: Plain X-Ray ( chest: No acute findings.) Radiology Impression Discussion of test interpretation with radiology: I have reviewed the radiologist's reading. Discharge Plan Discharge Clinical Impression: Sepsis, Acute UTI Patient Disposition: Admitted As Inpatient Print Language: Lebanese
--- OUTSIDE RECORDS SUMMARY | 2025-06-14 21:48 | XMS_ITS | Patient Health Record ---
Author Organization [facility] Address [address] [place] [address] Care Team Providers Care Brake Operator Heavy Duty Name Role Phone Hilary Boss Primary Care [...] Blood Reviewed date:05/15/2025 01:35:07 PM Interpretation: Performing Lab:[facility], [address] [place] [id number] Notes/Report: Glucose, Whole Blood 119 60-115 mg/dL METER # : [id number] Pathology Reviewed date:05/16/2025 02:20:44 PM Interpretation: Performing Lab:[facility], [address] [place] [id number] Notes/Report: Reason For Referral Referring Provider First Name Hilary Referring Provider Last Name Tony Referring Provider Speciality Internal M edicine Referred Organization [facility] Referred Provider Joe Echavarria Jr Referred Address [address] [facility] [address],[place], [place],[address], Referred Provider Specialty Gastroentero logy General Notes Brooklyn Barkley 2024 10:14:44 AM > REQUESTED HERACLIO REFEFFAL FROM DR BOSS'S OFFICE FOR VISIT WITH DR ECHAVARRIA ON 02-15-25Rubia Dawn 02/15/2025 11:39:50 AM >no referral required since patient is in the same zuni of care Referral Priority Routine Medications Medication [...] Risk Notes Problem Oesophageal varices without bleeding (27119695) Secondary esophageal varices without bleeding (I85.10) Active confirmed Problem Portal hypertension (12910189) Portal hypertension (K76.6) Active confirmed Problem Liver mass (974880611) Liver mass (R16.0) Active confirmed Problem Lesion of liver (824068143) Liver lesion (K76.9) Active confirmed Problem Abnormal findings diagnostic imaging of liver and biliary tract (284313412) Abnormal CT scan, liver (R93.2) Active confirmed Problem Cirrhosis - non-alcoholic (752382016) Cirrhosis of liver without ascites, unspecified hepatic cirrhosis type (K74.60) Active confirmed Vital Signs Temperature 97.7 degrees Fahrenheit 02/15/2025 Blood pressure diastolic 01 mm Hg 02/15/2025 Height 62 in 02/15/2025 Blood pressure systolic 001 mm Hg 02/15/2025 Weight 120 lbs 02/15/2025 BMI 21.95 kg/m2 02/15/2025 Encounters Encounter Location Date Provider Diagnosis [facility] [place] Out[place] [address] [place] [address] [place] [id number] 05/12/2025 Joe Echavarria Jr [facility] [address] [place] [phone] 02/15/2025 Joe Echavarria Jr Abnormal findings in stool R19.5 [facility] [address] [place] [phone] 12/26/2024 Joe Echavarria Jr [facility] [address] [place] [phone] 02/28/2025 Joe Echavarria Jr [facility] [address] [place] [phone] 02/28/2025 Joe Echavarria Jr [facility] [address] [place] [phone] 03/30/2025 Joe Echavarria Jr [facility] [address] [place] [phone] 04/24/2025 Joe Echavarria Jr [facility] [address] [place] [phone] 05/04/2025 Joe Echavarria Jr [facility] [address] [place] [id number] 05/16/2025 Joe Echavarria Jr Assessments Encounter Date [...] Name:Joe estrada , 05/24/2026 01:35:00 PM, [address] [facility] [address], [address], [place], [address], Insurance Providers Payer Name Payer Address Payer Phone Subscriber Number Group Number Insured Name Patient Relationship to Insured Coverage Start Date Coverage End Date [employer] [address] ADEOLA Fisher [id number] [phone] [id number] Alexia Agosto Self - patient is the insured MEDICAID OF [facility] [address] [place] [phone] [id number] Alexia Agosto Self - patient is the insured Medical (General) History Medical History History ICD Code diabetes asthma Hypertension Bladder cancer Cirrhosis, likely secondary to fatty lonnie er, compensated Surgical History Surgery Date(Month/Year) bladder cancer Radical cystectomy, ileal conduit Hospitalization History Reason Date(Month/Year)
--- OUTSIDE RECORDS SUMMARY | 2025-06-14 21:49 | XMS_ITS | Patient Health Record ---
Author Organization Darrian Ziegler III, MD Address [address] [place] [address] [place] [address] Care Team Providers Care [id number] Java Developer Name Role Phone Tony PINK, [facility] Primary Care Provider Dr. Darrian Smith III Unavailable Allergies Allergen (clinical drug ingredient) Drug/Non Drug Allergy documented on EMR Reaction Allergy Type Onset Date Status aspirin Aspirin Unknown Drug Allergy Active Motrin Unknown Drug Allergy Active Results Component Value Reference Range Notes Complete Blood Count Auto Di ff Reviewed date:01/27/2025 01:46:19 PM Interpretation: Performing Lab:[facility], [address] [place] [phone] Notes/Report: White Blood Count 7.4 4.8-10.8 X10*3/uL [...] Auto 0.000 0.0-0.012 X10*3/uL CORRECTED REPORT Comprehensive [place]. Panel Fa st Reviewed date:01/27/2025 01:46:19 PM Interpretation: Performing Lab:[facility], [address] [place] [phone] Notes/Report: Sodium 138 135-145 mmol/L Potassium 4.2 [...] Panel Reviewed date:01/27/2025 01:46:19 PM Interpretation: Performing Lab:[facility], [address] [place] [phone] Notes/Report: Triglycerides 95 <150 mg/dL Desirable Triglyceride: [...] Antigen Reviewed date:01/27/2025 01:46:19 PM Interpretation: Performing Lab:[facility], [address] [place] [phone] Notes/Report: Prostate Specific Antigen < 0.10 <0.05-4.0 ng/mL PSA methodology: Rodriguez Alinity i Chemiluminescent Microparticle Immunoassay (CMIA) SLIDE REVIEW Reviewed date:01/27/2025 01:46:19 PM Interpretation: Performing Lab:[facility], [address] [place] [phone] Notes/Report: SLIDE REVIEW VERIFIED Complete Blood Count Auto Di ff Reviewed date:01/27/2025 01:46:19 PM Interpretation: Performing Lab:[facility], [address] [place] [phone] Notes/Report: White Blood Count 7.4 4.8-10.8 X10*3/uL [...] ff Reviewed date:04/17/2025 09:18:18 AM Interpretation: Performing Lab:[facility], [address] [place] [phone] Notes/Report: White Blood Count 5.9 4.8-10.8 X10*3/uL [...] NRBC Abs Auto 0.000 0.0-0.012 X10*3/uL Comprehensive [place]. Panel Fa st Reviewed date:04/17/2025 09:18:18 AM Interpretation: Performing Lab:[facility], [address] [place] [phone] Notes/Report: Sodium 137 135-145 mmol/L Potassium 4.5 [...] Ferritin Reviewed date:04/17/2025 09:18:18 AM Interpretation: Performing Lab:[facility], [address] [place] [phone] Notes/Report: Ferritin 911 20-250 ng/mL Lipid Panel Reviewed date:04/17/2025 09:18:18 AM Interpretation: Performing Lab:[facility], [address] [place] [phone] Notes/Report: Triglycerides 104 <150 mg/dL Desirable Triglyceride: [...] Antigen Reviewed date:04/17/2025 09:18:18 AM Interpretation: Performing Lab:[address] [phone] Notes/Report: Prostate Specific Antigen < 0.10 <0.05-4.0 ng/mL PSA methodology: Rodriguez Alinity i Chemiluminescent Microparticle Immunoassay (CMIA) Folate Reviewed date:04/17/2025 09:18:18 AM Interpretation: Performing Lab:[address] [phone] Notes/Report: Folate 16.3 > or = 4.0 ng/mL Reference Values: > or = 4.0 ng/mL < 4.0 ng/mL suggests folate deficiency Methotrexate, aminopterin and folinic acid (leucovorin) are chemotherapeutic agents whose molecular structures are similar to folate; therefore, the Heat Sealing Machine Operator folate assay cannot be used for patients using these drugs. Alpha Fetoprotein Reviewed date:06/04/2025 07:37:22 AM Interpretation: Performing Lab:[address] [phone] Notes/Report: Alpha Fetoprotein 7.9 <6.1 ng/mL This test was performed using the Sylvie Jeramy chemiluminescent method. Values obtained from different assay methods cannot be used interchangeably. AFP levels, regardless of value, should not be interpreted as absolute evidence of the presence or absence of disease. THIS TEST WAS PERFORMED AT: [facility] [address] [place] [phone] TORSTEN GARG MD SCREENING COLONOSCOPY Reviewed date:06/05/2025 12:38:15 PM Interpretation:undefined Performing Lab: Notes/Report: undefined Basic Metabolic Panel (Not y et reviewed by provider) Interpretation: Performing Lab:[address] [phone] Notes/Report: Sodium 137 135-145 mmol/L Potassium 4.0 3.3-5.1 mmol/L Chloride 114 96-108 mmol/L Carbon Dioxide 20 22-29 mmol/L Anion Gap 7 12-20 Blood Urea Nitrogen 24 9-16 mg/dL Creatinine 1.30 0.5-1.4 mg/dL Estimated Glomerular Filt Rate 54 Chronic Kidney Disease: Estimated GFR < 60 mL/min/1.73m2 Severe Kidney Disease: Estimated GFR < 15 mL/min/1.73m2 Glucose Random 248 60-115 mg/dL Calcium 9.3 8.4-10.2 mg/dL Alpha Fetoprotein (Not yet r eviewed by provider) Interpretation: Performing Lab:[address] [phone] Notes/Report: Alpha Fetoprotein 10.6 <6.1 ng/mL This test was performed using the Sylvie Cheltenham chemiluminescent method. Values obtained from different assay methods cannot be used interchangeably. AFP levels, regardless of value, should not be interpreted as absolute evidence of the presence or absence of disease. THIS TEST WAS PERFORMED AT: [facility] [address] [place] [phone] TORSTEN GARG MD Reason For Referral Reason cirrhosis of liver enlarging liver Increasing AFP Diagnosis 1 Cirrhosis of liver w ithout ascites, unspecified hepatic cirrhosis type (K74.60) Referral Organization Darrian Ziegler III, MD Referring Provider First Name Darrian Referring Provider Last Name Toney Referring Provider Speciality Internal M edicine Ref[facility] Gastroentero jennifer General Notes Kaitlin Roa WEB APPLICATION DEV SPECIALIST 06/13 02:42:11 PM >ref/progress note/labs/faxed to [facility] gastroenterology I called spoke to Jacqueline wetzel pt appt with Dr Stephanie Hannon for tomorrow at 1:30pm pt made aware of this and was given appt info Referral Priority Routine Referral Appointment Date 06/14/2025 Medications Medication SIG (Take, Route, Frequency, Duration) Notes Start Date End Date Status Montelukast Sodium 10 MG 1 tablet Orally Once a day Active Atorvastatin Calcium 10 MG 1 tablet Oral ly Once a day Active Telmisartan 20 MG [...] Status W/U Status Risk Notes Problem Asthma (291973047) Asthma (J45.909) Active confirmed He repo rts no difficulty with breathing since his last visit. He tolerated the hot weather of the summer without difficulty. Problem Anemia (229832441) Anemia (D64.9) Active confirmed His hemat ocrit is slightly lower, but he had a recent episode of bleeding which required hospitalization. His ferritin is rising. His iron supplementation has been stopped. This will be observed. Problem Diabetes mellitus (98143105) Diabetes mellitus (E11.9) Active confirmed Is A1c was quite low and primary care has discontinued his ddiabetic medications. His current fasting glucose is 111. Problem 618269588 Mixed hyperlipidemia (E78.2) Active confirmed Is currently stable and no change in his treatment is needed. Problem Hypertension (36702873) HTN (hypertension) (I10) Active confirmed His blood pressure is currently stable at 137/49 and no change in his regimen is needed today. Problem Hypothyroid (97681724) Hypothyroid (E03.9) Active confirmed He remains euthyroid. No change in his medication was needed. Problem 896746091 Urothelial carcinoma (C68.9) Active confirmed There is no sig n of recurrent disease at this time. The ileostomy is functioning well.He was hospitalized recently for bleeding into the urostomy but this has resolved and no serious cause was found. Problem 8552104053609 Benign prostatic hyperplasia with lower urinary tract symptoms (N40.1) Active confirmed He rises from sleep once or twice a night to urinate depending upon fluid intake. We reviewed lifestyle modification she could make to reduce nocturia. 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 He has had no bleeding. The ostomy is functioning well. Problem 53994342 Cirrhosis of liver without ascites, unspecified hepatic [...] obtained.A repeat MRI has been scheduled. Problem 753618555 History of tuberculosis (Z86.11) Active confirmed Vital Signs Heart Rate 93 /min 06/13/2025 Temperature 97.5 degrees Fahrenheit 06/13/2025 Blood pressure diastolic 74 mm Hg 06/13/2025 Height 61 in 06/13/2025 Blood pressure systolic 162 mm Hg 06/13/2025 Weight 131 lbs 06/13/2025 BMI 24.75 kg/m2 06/13/2025 Encounters Encounter Location Date Provider Diagnosis Darrian Ziegler III, MD [address] [place] [address] [place] [id number] 06/13/2025 Darrian Ziegler HTN (hypertension) I 10 Darrian Ziegler III, MD [address] [place] [address] [place] [id number] 01/31/2025 Darrian Ziegler Urothelial carcinoma C68.9 ; Cirrhosis of liver without ascites, unspecified hepatic cirrhosis type K74.60 ; HTN (hypertension) I10 ; Hypothyroid E03.9 ; Anemia, unspecified type D64.9 ; Benign prostatic hyperplasia with lower urinary tract symptoms N40.1 ; Ileostomy in place Z93.2 and Diabetes mellitus E11.9 Darrian Ziegler III, MD [address] [place] [address] [place] [id number] 05/04/2025 Darrian Ziegler HTN (hypertension) I 10 ; Cirrhosis of liver without ascites, unspecified hepatic cirrhosis type K74.60 ; Asthma J45.909 ; Anemia D64.9 ; Diabetes mellitus E11.9 ; Hypothyroid E03.9 ; Urothelial carcinoma C68.9 ; Ileostomy in place Z93.2 and Benign prostatic hyperplasia with lower urinary tract symptoms N40.1 Darrian Ziegler III, MD [address] [place] [address] [place] [id number] 06/05/2025 Darrian Ziegler Cirrhosis of liver without [...] the liver has been done by his tipple greaser, Dr. Burnett. It showed thickening of the [...] the liver has been done by his tipple greaser, Dr. Burnett. It showed thickening of the [...] DIFF 05/02/2024 CBC WITH AUTO DIFF 12/29/2023 Basic Metabolic Panel 06/06/2025 Ferritin 01/31/2025 Ferritin 05/04/2025 Lipid Panel 05/02/2024 Lipid Panel 12/29/2023 Lipid Panel 01/31/2025 Lipid Panel 05/04/2025 Folate 01/31/2025 Alpha Fetoprotein 06/06/2025 Microalbumin, Random 05/19/2023 Hemoglobin A1c 05/04/2025 Hemoglobin A1c 12/29/2023 Next Appt Details Provider Name:Darrian Ziegler , 06/21/2025 03:30:00 PM, [address] [place] [address] [address], [place], [phone], Provider Name:Darrian Ziegler , 12/11/2025 02:00:00 PM, [address] [place] [address] [address], [place], [phone], Insurance Providers Payer Name Payer Address Payer Phone Subscriber Number Group Number Insured Name Patient Relationship to Insured Coverage Start Date Coverage End Date [facility] [address] [place] [phone] [id number] Alexia Agosto Self - patient is the insured MED[place] [address] [place] [id number] [phone] [id number] Alexia Agosto Self - patient is the insured MEDICARE [place] [address] [place] [address] [id number] Alexia Agosto Self - patient is the [...]
[2025-06-14 21:54] VITALS: BP 167/74; PULSE 93; RESP 15; TEMP 38.7; O2SAT 100
[2025-06-14 22:00] LABS: Appearance Urine Clear; Glucose Urine UA Negative (Negative); PH 6.0 (5.0-9.0); Specific Gravity - Urine 1.010 (1.005-1.025); UMIC TRIGGER UACC YES
[2025-06-14 22:03] LABS: Hemoglobin 9.8 g/dl (14.0-18.0); NRBC Abs Auto 0.000 X10*3/uL (0.0-0.012); NRBC Pct Auto 0.0 /100WBC (0.0-0.2); PLT CLUMP 1; SCAN SMEAR FLAG 1
[2025-06-14 22:05] LABS: UACC Culture Trigger YES
[2025-06-14 22:05] LABS: Hematocrit 29.0 % (42.0-52.0); Imm Gran Abs Auto 0.06 X10*3/uL (0.00-0.03); Imm Gran Pct Auto 0.7 % (0.0-0.4); Lymphocytes Absolute Auto 1.1 X10*3/uL (1.2-4.9); MANUAL DIFF FLAG SCAN; Mean Corpuscular HGB Conc 33.8 g/dl (31.0-36.0); Mean Corpuscular Hemoglobin 32.0 pg (27.0-33.0); Mean Corpuscular Volume 94.8 fL (80.0-98.0); Red Blood Count 3.06 X10*6/uL (4.60-5.80)
[2025-06-14] MEDS: Lactated Ringers 1,000 ML 999 ML IV (22:08)
[2025-06-14 22:13] LABS: INTERNATIONAL NORM RATIO 1.1 (0.9-1.1); Prothrombin Time 13.7 SEC (11.2-13.5)
[2025-06-14 22:15] LABS: Partial Thromboplastin Time 36.5 SEC (26.7-34.1)
[2025-06-14 22:25] LABS: Platelet Count 103 X10*3/uL (160-400); White Blood Count 8.7 X10*3/uL (4.8-10.8)
[2025-06-14 22:41] LABS: Resp Syncy Virus RNA Qual PCR NEGATIVE (Negative); SARS COV2 PCR INHOUSE NEGATIVE (Negative)
[2025-06-14 22:42] VITALS: TEMP 38.4
[2025-06-14 22:57] LABS: Alanine Aminotransferase 21 U/L (0-40); Albumin Level 3.1 g/dL (3.5-5.0); Alkaline Phosphatase 258 U/L (39-117); Anion Gap 12 (12-20); Aspartate Amino Transferase 45 U/L (5-37); Blood Urea Nitrogen 21 mg/dL (9-16); Calcium 8.1 mg/dL (8.4-10.2); Carbon Dioxide 16 mmol/L (22-29); Chloride 106 mmol/L (96-108); Creatinine Clr Calc Pharmacy 33.2; Estimated Glomerular Filt Rate 50; Potassium 3.7 mmol/L (3.3-5.1); Sodium 130 mmol/L (135-145); Total Protein 6.6 g/dL (6.5-8.0)
[2025-06-14] MEDS: guaiFEN/Codeine SF 200/20/10ML 10 ML LIQUID PO (23:30)
--- NOTE | 2025-06-14 23:31 | PM.IMHP ---
History of Present Illness Date of Service: 06/14/25 Chief Complaint: fever 74-year-old male with a past medical history of HTN, HLD, bladder cancer status post cystectomy and ileal loop urostomy; diabetes; history of bacteremia/pyelonephritis; presented to the hospital today with a chief complaint of fevers and chills. Patient also reports occasional cough. Denies any nausea or vomiting. Denies any sputum production. Denies any chest pain or palpitations. Review of all other systems is negative except mentioned above ER course: Per ER team, patient has no abdominal tenderness; blood pressure was stable; urinalysis abnormal consistent with UTI. Given antibiotics. [facility] Medical History Aortic stenosis Complication of urostomy History of bladder cancer Abdominal distention Cirrhosis of liver HTN (hypertension) Acute hyponatremia Hydronephrosis Bladder cancer Asthma Diabetes Bladder cancer Incomplete emptying of bladder due to benign prostatic hyperplasia Complicated urinary tract infection Surgical History History of surgery History of ileal conduit Social History Household Members: Spouse Housing: House Are you a primary body care manager to a significant other at home: No Do you presently have visiting nurse or other home services: No Alcohol intake: never Comment: bedside Patient Tobacco Use Status: Never used Tobacco Smoked in Last 30 Days: No Use of substances other than those prescribed or required for medical reasons: No Advance Directives: No Advance Directives Information Provided: No Advance Directives Date on File: 03/12/25 Do you have a plan to hurt others: No Plan service: No Current occupational status: retired Meds Allergies Allergy/AdvReac Type Severity Reaction Status Date / Time aspirin Allergy Unknown Verified 06/14/25 21:24 Beta-Blockers AdvReac Unknown Verified 06/14/25 21:24 (Beta-Adrenergic Bloc ibuprofen AdvReac Unknown Verified 06/14/25 21:24 Home Medications ?Medication ?Instructions ?Recorded ?Confirmed ?Last Taken ?Type blood sugar diagnostic (Markelyle #10 ea 04/18/21 01/05/24 Unknown History Lite Strips) montelukast 10 mg tablet 10 mg PO DAILY 04/18/21 05/10/25 05/07/25 History lancets 28 gauge (FreeStyle #100 ea 06/24/21 01/05/24 Unknown History Lancets) folic acid 1 mg tablet 1 mg PO DAILY 12/10/21 05/10/25 05/07/25 History albuterol sulfate 90 mcg/actuation 1 puff PO QID PRN Shortness Of 02/08/22 05/10/25 Unknown History aerosol inhaler Breath atorvastatin 20 mg tablet 10 mg PO BEDTIME 03/01/25 05/10/25 05/06/25 History telmisartan 20 mg tablet 20 mg PO DAILY 03/01/25 05/10/25 05/07/25 History bisacodyl 5 mg tablet,delayed 5 mg PO DAILY constipation 03/21/25 05/10/25 05/07/25 History release (Dulcolax (bisacodyl)) ascorbic acid (vitamin C) 1,000 mg 1,000 mg PO DAILY 05/10/25 05/10/25 Unknown History tablet (Vitamin C) Physical Exam Vital Signs and Narrative: Vital Signs: Last Vital Signs Temp 101.1 F H 06/14/25 22:42 Pulse 93 06/14/25 21:54 Resp 15 06/14/25 21:54 BP 167/74 H 06/14/25 21:54 Pulse Ox 100 06/14/25 21:54 O2 Del Method Room Air 06/14/25 21:54 BMI result Body Mass Index 21.3 Gen: Appears be in no acute distress HEENT: NCAT, Moist mucosa. Pulmonary: Vesicular breath sounds, fair air entry CVS: Normal S1-S2 Abdomen: BS+, Soft, Nontender; clear urine in the urostomy bag Extremities: Warm well perfused Neuro: Alert and awake. Results Labs 06/15/25 04:04 06/15/25 04:04 Labs: Laboratory Results - last 24 hr 06/14/25 06/14/25 06/14/25 21:40 21:47 22:38 MCV 94.8 MCH 32.0 MCHC 33.8 RDW 14.5 Plt Count 103 L MPV 11.8 Immature Gran % (Auto) 0.7 H Neut % (Auto) 79.5 H Lymph % (Auto) 12.5 L [place] % (Auto) 4.7 Eos % (Auto) 1.8 Baso % (Auto) 0.8 Lymph # (Auto) 1.1 L [place] # (Auto) 0.4 Eos # (Auto) 0.2 Baso # (Auto) 0.1 Abs Immat Gran (auto) 0.06 H Absolute Neuts (auto) 6.9 Absolute Nucleated RBC 0.000 Nucleated RBC % (auto) 0.0 Smear Tech's Comments VERIFIED PT 13.7 H INR 1.1 APTT 36.5 H Anion Gap 12 Estim Creat Clear Calc 33.2 Estimated GFR 50 Random Glucose 141 H Lactic Acid 2.0 Calcium 8.1 L D Total Bilirubin 0.6 Direct Bilirubin 0.4 AST 45 H ALT 21 Alkaline Phosphatase 258 H Total Protein 6.6 Albumin 3.1 L Urine Color Yellow Urine Appearance Clear Urine pH 6.0 Ur Specific [place] 1.010 Urine Protein 100 (2+) H Urine Glucose (UA) Negative Urine Ketones Negative Urine Blood Large (3+) H Urine Nitrite Positive H Ur Leukocyte Esterase Moderate (2+) H Urine RBC >20 H Urine WBC 21-50 H Ur Squamous Epith Cells 0-2 Urine Bacteria 4+ Hyaline Casts 0-2 Influenza Type A (PCR) NEGATIVE Influenza Type B (PCR) NEGATIVE RSV RNA Qual (PCR) NEGATIVE SARS-CoV-2 RNA (RT-PCR) NEGATIVE Assessment and Plan (1) Acute UTI: Status: Acute Plan 74-year-old male with a past medical history of HTN, HLD, bladder cancer status post cystectomy and ileal loop urostomy; diabetes; history of bacteremia/pyelonephritis; presented to the hospital today with a chief complaint of fevers and chills. Noted to have UTI. UTI: Continue ceftriaxone Follow up cultures Mild hyponatremia: Will monitor Diabetes: Insulin sliding scale Asthma/Cough: DuoNebs p.r.n.. Chest x-ray negative. DVT prophylaxis: Subcu heparin Code status: Full code Quality Stroke Does the patient have a stroke diagnosis?: No VTE Prior VTE?: No VTE Risk Level:: Medical - moderate - high VTE Device Contraindication: Treatment Not Indicated VTE Drug Contraindication: N/A - Med Ordered
[2025-06-15] VITALS (12 sets, daily range): BP systolic 115–156; BP diastolic 47–68; PULSE 74–109; RESP 16–30; TEMP 36.8–39.9; O2SAT 96–100; BMI 21.3
[2025-06-15] MEDS: Albuterol/Iprat 2.5/0.5MG 3 ML AMPUL.NEB INHALE (00:09)
[2025-06-15] MEDS: Lactated Ringers 1,000 ML 50 ML IVCONT ×2 (00:13→19:33)
[2025-06-15] MEDS: 0.9 % Sodium Chloride Flush 3 ML SYRINGE IVFLUSH (01:28)
[2025-06-15 04:11] LABS: MANUAL DIFF FLAG NO
[2025-06-15 04:14] LABS: Hematocrit 24.7 % (42.0-52.0); Hemoglobin 8.1 g/dl (14.0-18.0); Imm Gran Abs Auto 0.04 X10*3/uL (0.00-0.03); Imm Gran Pct Auto 0.6 % (0.0-0.4); Lymphocytes Absolute Auto 1.0 X10*3/uL (1.2-4.9); Mean Corpuscular HGB Conc 32.8 g/dl (31.0-36.0); Mean Corpuscular Hemoglobin 31.2 pg (27.0-33.0); Mean Corpuscular Volume 95.0 fL (80.0-98.0); NRBC Abs Auto 0.000 X10*3/uL (0.0-0.012); NRBC Pct Auto 0.0 /100WBC (0.0-0.2); Platelet Count 91 X10*3/uL (160-400); Red Blood Count 2.60 X10*6/uL (4.60-5.80); White Blood Count 7.1 X10*3/uL (4.8-10.8)
[2025-06-15 04:27] LABS: Alanine Aminotransferase 23 U/L (0-40); Albumin Level 3.0 g/dL (3.5-5.0); Alkaline Phosphatase 234 U/L (39-117); Anion Gap 11 (12-20); Aspartate Amino Transferase 41 U/L (5-37); Blood Urea Nitrogen 20 mg/dL (9-16); Calcium 8.0 mg/dL (8.4-10.2); Carbon Dioxide 17 mmol/L (22-29); Chloride 106 mmol/L (96-108); Creatinine Clr Calc Pharmacy 33.9; Estimated Glomerular Filt Rate 51; Potassium 3.7 mmol/L (3.3-5.1); Sodium 130 mmol/L (135-145); Total Protein 6.3 g/dL (6.5-8.0)
[2025-06-15 06:54] LABS: Glucose, Whole Blood 116 mg/dL (60-115)
--- NOTE | 2025-06-15 08:32 | PC.NURSE ---
tech alerted this RN that pt temp was 103.1 Oral, recheck rectally 103.9. Hospitalist notified. PRN order for Tylenol given. removed several blankets that were on pt. change to hospital bed. recheck temp pending.
--- NOTE | 2025-06-15 09:01 | HO.PM.IMPN ---
Subjective Subjective Date of Service: 06/15/25 Interval History: f/u UTI temp of 103 this morning he has history of Pseudomonas and E.coli in blood in March Physical Exam Vital Signs: Vital Signs: Last Vital Signs Temp 103.9 F H 06/15/25 08:07 Pulse 88 06/15/25 08:07 Resp 20 06/15/25 08:07 BP 141/59 H 06/15/25 08:07 Pulse Ox 96 06/15/25 08:07 O2 Del Method Room Air 06/15/25 08:07 BMI result Body Mass Index 21.3 Const: Other: General: AO X 3, no acute distress Resp: CTA bilateral CVS: S1,S2,RRR GI: +BS, NT, no distention Skin: No rash Neuro: motor grossly intact Psych: appropriate affect Objective Data Active Medications Acetaminophen (Acetaminophen 325 Mg Tablet) 650 mg PO Q6H PRN PRN Reason: Pain, Mild 1-3,fever,headache Last Admin: 06/15/25 08:23 Dose: 650 mg Documented By: MARIANNE Albuterol/Ipratropium (Albuterol/Iprat 2.5/0.5mg 3 Ml Ampul.Neb) 3 ml INHALE Q4H PRN PRN Reason: Shortness of Breath/Wheezing Last Admin: 06/15/25 00:09 Dose: 3 ml Documented By: MARTIN Calcium Carbonate (Calcium Carbonate 750 Mg Tab.Chew) 750 mg PO Q4H PRN PRN Reason: Heartburn Dextrose (Dextrose 50 % 25 Gm/50 Ml Syringe) 25 gm IVPUSH Q15M PRN; Protocol PRN Reason: per Hypoglycemia Standing Ord. Glucose (Glucose Gel 15 Gm Gel..Gram.) 15 gm PO Q15M PRN; Protocol PRN Reason: per Hypoglycemia Standing Ord. Heparin Sodium (Porcine) (Heparin Sodium,Porcine 5,000 Unit/Ml Vial) 5,000 unit SUBCUT Q8H [facility] Last Admin: 06/15/25 08:42 Dose: 5,000 unit Documented By: MARIANNE Lactated Ringer's (Lr) 1,000 mls @ 50 mls/hr IVCONT .Q20H STEVEN Last Admin: 06/15/25 00:13 Dose: 50 mls/hr Documented By: MARYAM Ceftriaxone Sodium 1 gm/ (Sodium Chloride) 50 mls @ 100 mls/hr IV Q24H [facility] Insulin Human Lispro (Insulin Lispro 100 Unit/Ml 3 Ml Vial) 0 unit SUBCUT QIDACHS [facility]; Protocol Last Admin: 06/15/25 07:34 Dose: Not Given Documented By: MARIANNE Non-Admin Reason: No Insulin Coverage Magnesium Hydroxide (Milk Of Magnesia 30 Ml Oral.Susp) 30 ml PO DAILY PRN PRN Reason: Constipation Melatonin (Melatonin 3 Mg Tablet) 6 mg PO BEDTIME PRN PRN Reason: Insomnia Sodium Chloride (0.9 % Sodium Chloride Flush 3 Ml Syringe) 3 [facility] Last Admin: 06/15/25 07:34 Dose: Not Given Documented By: MARIANNE Non-Admin Reason: IV Running Labs 06/15/25 04:04 06/15/25 04:04 Labs: Laboratory Results - last 24 hr 06/14/25 06/14/25 06/14/25 21:40 21:47 22:38 MCV 94.8 MCH 32.0 MCHC 33.8 RDW 14.5 Plt Count 103 L MPV 11.8 Immature Gran % (Auto) 0.7 H Neut % (Auto) 79.5 H Lymph % (Auto) 12.5 L [place] % (Auto) 4.7 Eos % (Auto) 1.8 Baso % (Auto) 0.8 Lymph # (Auto) 1.1 L [place] # (Auto) 0.4 Eos # (Auto) 0.2 Baso # (Auto) 0.1 Abs Immat Gran (auto) 0.06 H Absolute Neuts (auto) 6.9 Absolute Nucleated RBC 0.000 Nucleated RBC % (auto) 0.0 Smear Tech's Comments VERIFIED PT 13.7 H INR 1.1 APTT 36.5 H Anion Gap 12 Estim Creat Clear Calc 33.2 Estimated GFR 50 POC Glucose Random Glucose 141 H Lactic Acid 2.0 Calcium 8.1 L D Total Bilirubin 0.6 Direct Bilirubin 0.4 AST 45 H ALT 21 Alkaline Phosphatase 258 H Total Protein 6.6 Albumin 3.1 L Urine Color Yellow Urine Appearance Clear Urine pH 6.0 Ur Specific [place] 1.010 Urine Protein 100 (2+) H Urine Glucose (UA) Negative Urine Ketones Negative Urine Blood Large (3+) H Urine Nitrite Positive H Ur Leukocyte Esterase Moderate (2+) H Urine RBC >20 H Urine WBC 21-50 H Ur Squamous Epith Cells 0-2 Urine Bacteria 4+ Hyaline Casts 0-2 Influenza Type A (PCR) NEGATIVE Influenza Type B (PCR) NEGATIVE RSV RNA Qual (PCR) NEGATIVE SARS-CoV-2 RNA (RT-PCR) NEGATIVE 06/15/25 06/15/25 04:04 06:51 MCV 95.0 MCH 31.2 MCHC 32.8 RDW 14.4 Plt Count 91 L MPV 11.0 Immature Gran % (Auto) 0.6 H Neut % (Auto) 78.7 H Lymph % (Auto) 13.5 L [place] % (Auto) 6.6 Eos % (Auto) 0.3 Baso % (Auto) 0.3 Lymph # (Auto) 1.0 L [place] # (Auto) 0.5 Eos # (Auto) 0.0 Baso # (Auto) 0.0 Abs Immat Gran (auto) 0.04 H Absolute Neuts (auto) 5.6 Absolute Nucleated RBC 0.000 Nucleated RBC % (auto) 0.0 Smear Tech's Comments PT INR APTT Anion Gap 11 L Estim Creat Clear Calc 33.9 Estimated GFR 51 POC Glucose 116 H Random Glucose 158 H Lactic Acid Calcium 8.0 L Total Bilirubin 0.5 Direct Bilirubin AST 41 H ALT 23 Alkaline Phosphatase 234 H Total Protein 6.3 L Albumin 3.0 L Urine Color Urine Appearance Urine pH Ur Specific [place] Urine Protein Urine Glucose (UA) Urine Ketones Urine Blood Urine Nitrite Ur Leukocyte Esterase Urine RBC Urine WBC Ur Squamous Epith Cells Urine Bacteria Hyaline Casts Influenza Type A (PCR) Influenza Type B (PCR) RSV RNA Qual (PCR) SARS-CoV-2 RNA (RT-PCR) Assessment and Plan (1) Acute UTI: Status: Acute Plan 74-year-old male with a past medical history of HTN, HLD, bladder cancer status post cystectomy and ileal loop urostomy; diabetes; history of bacteremia/pyelonephritis; presented to the hospital today with a chief complaint of fevers and chills. Noted to have UTI. Febrile UTI, history Pseudomonas and e. coli in blood Given persistent fever, change Abx to Meropenem to cover ESBL and Pseudomonas Follow-up cultures, Tylenol for fever Mild hyponatremia: Will monitor, fluid restriction Diabetes: Insulin sliding scale Chronic metablic aciodis Asthma/Cough: Bogdan [email or web address].. Chest x-ray negative. DVT prophylaxis: Subcu heparin Code status: Full code Quality Stroke Does the patient have a stroke diagnosis?: No VTE Prior VTE?: No VTE Risk Level:: Medical - moderate - high VTE Device Contraindication: Treatment Not Indicated VTE Drug Contraindication: N/A - Med Ordered
--- NOTE | 2025-06-15 10:36 | MHC.CM.PN ---
Addendum entered by Marcy Atkins 06/15/25 15:35: Patient has [employer] insurance; a referral was made to [facility]. Addendum entered by Marcy Atkins 06/15/25 11:46: IMM was addressed with Patient and his at bedside, in the ED; original was given to Patient and a copy will be placed on the chart. Original Note: CM met with Patient and his at bedside, in the ED. Patient lives in a house with his ,Son, [id number], and Grandson and he required no DME [employer].Patient's goal is to return home and resume VNA and CM has initiated and will follow for dc planning. PCP is Dr. Hilary Jimenez and Son will transport to home.
--- NOTE | 2025-06-15 10:40 | PHA.MEDREC ---
Addendum entered by Tea Diane RPh 06/15/25 11:02: Reviewed by pharmacist Original Note: Pharmacy Consult ? Medication Reconciliation Pharmacy has completed the medication reconciliation. Spoke with pt and spouse at bedside and they were able to confirm pt medications. Pt no longer taking Metformin as of ~1 month ago after pt got A1C retested and it came back down to normal.
[2025-06-15 13:04] LABS: Glucose, Whole Blood 121 mg/dL (60-115)
--- NOTE | 2025-06-15 13:52 | PC.NURSE ---
Addendum entered by Tonie Sánchez RN 06/15/25 14:07: recheck on pt tachypneic rate of 30. No response from MD. additional tiger text sent Original Note: pt temp 102.8 rectally. pt is shivering. MD Sivla notified. pt is uncomfortable. Wants to layer-up with 5+ blankets but asked to hold off. Sinus tach on tele rate 109. other vitals WNL. Not due for tylenol for 45 minutes - waiting on further orders from MD for override or additional plan.
--- NOTE | 2025-06-15 14:21 | PC.NURSE ---
verbal order to give PO tylenol. was given as ordered. then verbal order to change to IV tylenol but PO already given. NO IV given
[2025-06-15 16:51] LABS: Glucose, Whole Blood 146 mg/dL (60-115)
[2025-06-15 19:56] LABS: Glucose, Whole Blood 159 mg/dL (60-115)
[2025-06-16] VITALS (9 sets, daily range): BP systolic 131–172; BP diastolic 65–80; PULSE 81–95; RESP 18; TEMP 37.7–39.5; O2SAT 95–98
[2025-06-16] MEDS: 0.9 % Sodium Chloride Flush 3 ML SYRINGE IVFLUSH ×2 (00:41→21:30)
[2025-06-16 07:56] LABS: Glucose, Whole Blood 81 mg/dL (60-115)
[2025-06-16 09:06] LABS: Hematocrit 26.7 % (42.0-52.0); Hemoglobin 9.0 g/dl (14.0-18.0); Mean Corpuscular HGB Conc 33.7 g/dl (31.0-36.0); Mean Corpuscular Hemoglobin 31.7 pg (27.0-33.0); Mean Corpuscular Volume 94.0 fL (80.0-98.0); NRBC Abs Auto 0.000 X10*3/uL (0.0-0.012); NRBC Pct Auto 0.0 /100WBC (0.0-0.2); Platelet Count 108 X10*3/uL (160-400); Red Blood Count 2.84 X10*6/uL (4.60-5.80); White Blood Count 8.2 X10*3/uL (4.8-10.8)
[2025-06-16 09:16] LABS: Anion Gap 13 (12-20); Blood Urea Nitrogen 20 mg/dL (9-16); Calcium 8.1 mg/dL (8.4-10.2); Carbon Dioxide 19 mmol/L (22-29); Chloride 102 mmol/L (96-108); Creatinine Clr Calc Pharmacy 36.0; Estimated Glomerular Filt Rate 54; Potassium 3.9 mmol/L (3.3-5.1); Sodium 130 mmol/L (135-145)
--- NOTE | 2025-06-16 10:44 | HO.PM.IMPN ---
Subjective Subjective Date of Service: 06/16/25 Interval History: f/u sepsis, UTI and GNR bacteremia Still with fever but down hemodynamically stable Physical Exam Vital Signs: Vital Signs: Last Vital Signs Temp 101.9 F H 06/16/25 07:42 Pulse 87 06/16/25 07:42 Resp 18 06/16/25 07:42 BP 131/75 06/16/25 07:42 Pulse Ox 96 06/16/25 07:42 O2 Del Method Room Air 06/16/25 07:42 BMI result Body Mass Index 21.3 Const: Other: General: AO X 3, no acute distress Resp: CTA bilateral CVS: S1,S2,RRR GI: +BS, NT, no distention Skin: No rash Neuro: motor grossly intact Psych: appropriate affect Objective Data Active Medications Acetaminophen (Acetaminophen 325 Mg Tablet) 650 mg PO Q6H PRN PRN Reason: Pain, Mild 1-3,fever,headache Last Admin: 06/16/25 02:51 Dose: 650 mg Documented By: JESUS Albuterol Sulfate (Albuterol Sulfate 90 Mcg 8 Gm Inhaler) 1 puff INHALE QID PRN PRN Reason: Shortness of Breath Albuterol/Ipratropium (Albuterol/Iprat 2.5/0.5mg 3 Ml Ampul.Neb) 3 ml INHALE Q4H PRN PRN Reason: Shortness of Breath/Wheezing Last Admin: 06/15/25 00:09 Dose: 3 ml Documented By: MARTIN Ascorbic Acid (Ascorbic Acid 500 Mg Tablet) 1,000 mg PO DAILY [facility] Last Admin: 06/16/25 09:51 Dose: 1,000 mg Documented By: DEONTE Atorvastatin Calcium (Atorvastatin Calcium 20 Mg Tablet) 20 mg PO BEDTIME [facility] Last Admin: 06/15/25 20:31 Dose: 20 mg Documented By: JESUS Bisacodyl (Bisacodyl 5 Mg Tablet.) 5 mg PO DAILY [facility] Last Admin: 06/16/25 09:51 Dose: 5 mg Documented By: DEONTE Calcium Carbonate (Calcium Carbonate 750 Mg Tab.Chew) 750 mg PO Q4H PRN PRN Reason: Heartburn Dextrose (Dextrose 50 % 25 Gm/50 Ml Syringe) 25 gm IVPUSH Q15M PRN; Protocol PRN Reason: per Hypoglycemia Standing Ord. Docusate Sodium (Docusate Sodium 100 Mg Capsule) 100 mg PO BID [facility] Last Admin: 06/16/25 09:51 Dose: 100 mg Documented By: DEONTE Folic Acid (Folic Acid 1 Mg Tablet) 1 mg PO DAILY [facility] Last Admin: 06/16/25 09:51 Dose: 1 mg Documented By: DEONTE Glucose (Glucose Gel 15 Gm Gel..Gram.) 15 gm PO Q15M PRN; Protocol PRN Reason: per Hypoglycemia Standing Ord. Heparin Sodium (Porcine) (Heparin Sodium,Porcine 5,000 Unit/Ml Vial) 5,000 unit SUBCUT Q8H [facility] Last Admin: 06/16/25 09:52 Dose: 5,000 unit Documented By: DEONTE Lactated Ringer's (Lr) 1,000 mls @ 50 mls/hr IVCONT .Q20H [facility] Last Admin: 06/15/25 19:33 Dose: 50 mls/hr Documented By: JESUS Insulin Human Lispro (Insulin Lispro 100 Unit/Ml 3 Ml Vial) 0 unit SUBCUT QIDACHS [facility]; Protocol Last Admin: 06/16/25 08:03 Dose: Not Given Documented By: DEONTE Non-Admin Reason: No Insulin Coverage Magnesium Hydroxide (Milk Of Magnesia 30 Ml Oral.Susp) 30 ml PO DAILY PRN PRN Reason: Constipation Melatonin (Melatonin 3 Mg Tablet) 6 mg PO BEDTIME PRN PRN Reason: Insomnia Meropenem (Meropenem 1 Gm Vial) 1 gm IVPUSH Q8H [facility] Last Admin: 06/16/25 09:51 Dose: 1 gm Documented By: DEONTE Montelukast Sodium (Montelukast Sodium 10 Mg Tablet) 10 mg PO DAILY [facility] Last Admin: 06/16/25 09:51 Dose: 10 mg Documented By: DEONTE Sodium Chloride (0.9 % Sodium Chloride Flush 3 Ml Syringe) 3 ml IVFLUSH QSHIFT [facility] Last Admin: 06/16/25 08:14 Dose: Not Given Documented By: DEONTE Non-Admin Reason: IV Running Valsartan (Valsartan 40 Mg Tablet) 40 mg PO DAILY [facility] Labs 06/16/25 08:47 06/16/25 08:47 Labs: Laboratory Results - last 24 hr 06/15/25 06/15/25 06/15/25 13:01 16:48 19:47 MCV MCH MCHC RDW Plt Count MPV Absolute Nucleated RBC Nucleated RBC % (auto) Anion Gap Estim Creat Clear Calc Estimated GFR POC Glucose 121 H 146 H 159 H Random Glucose Calcium 06/16/25 06/16/25 07:50 08:47 MCV 94.0 MCH 31.7 MCHC 33.7 RDW 14.3 Plt Count 108 L MPV 11.2 Absolute Nucleated RBC 0.000 Nucleated RBC % (auto) 0.0 Anion Gap 13 Estim Creat Clear Calc 36.0 Estimated GFR 54 POC Glucose 81 Random Glucose 109 Calcium 8.1 L Microbiology Microbiology Results: Microbiology 06/14/25 21:40 Blood Culture - Preliminary Blood - Venous Gram negative jackie 06/14/25 21:40 Blood Culture - Preliminary Blood - Venous Gram negative jackie 06/14/25 Unknown Urine Culture - Final Urine clean catch - Clean Catch Midstream Assessment and Plan (1) Acute UTI: Status: Acute Plan 74-year-old male with a past medical history of HTN, HLD, bladder cancer status post cystectomy and ileal loop urostomy; diabetes; history of bacteremia/pyelonephritis; presented to the hospital today with a chief complaint of fevers and chills. Noted to have UTI. Sepsis d/t UTI and GNR bacteremia, peristent fever but better Continue Meropenem to cover ESBLand Pseudomonas Follow culture sensitivity ID consult Follow-up cultures, Tylenol for fever Mild hyponatremia: Will monitor, fluid restriction Diabetes: Insulin sliding scale Chronic metablic aciodis, stable Asthma/Cough: DuoNebs p.r.n.. Chest x-ray negative. DVT prophylaxis: Subcu heparin Code status: Full code Quality Stroke Does the patient have a stroke diagnosis?: No VTE Prior VTE?: No VTE Risk Level:: Medical - moderate - high VTE Device Contraindication: Treatment Not Indicated VTE Drug Contraindication: N/A - Med Ordered
[2025-06-16 11:52] LABS: Glucose, Whole Blood 97 mg/dL (60-115)
[2025-06-16] MEDS: Albuterol/Iprat 2.5/0.5MG 3 ML AMPUL.NEB INHALE (13:44)
--- NOTE | 2025-06-16 14:48 | MHC.CM.PN ---
EMR REVIEWED, PT W/GNR BACTEREMIA REMAINS FEBRILE, NO PLAN FOR DC AT THIS TIME, ANTIC PT WILL RETURN HOME W/RESUMP OF [facility]/HOME SERVICES, CM WILL CON TO FOLLOW DC NEEDS.
[2025-06-16 15:33] LABS: Glucose, Whole Blood 183 mg/dL (60-115)
[2025-06-16] MEDS: Lactated Ringers 1,000 ML 50 ML IVCONT (15:39)
[2025-06-16 20:32] LABS: Glucose, Whole Blood 164 mg/dL (60-115)
--- NOTE | 2025-06-16 23:47 | W.PM.IDCN ---
History of Present Illness Data of Consult Service Date: 06/16/25 Primary Care Provider: Hilary Jimenez MD [facility] Reason for consult: possible urinary sepsis He presents with fever and chills for a day. He has had pyelonephritis in past He has bladder cancer s/p ileal conduit He has DM and HTN Review of Systems Review of Systems: Yes all other systems are reviewed and are negative PMFSH Past Medical History Medical History Aortic stenosis Complication of urostomy History of bladder cancer Abdominal distention Cirrhosis of liver HTN (hypertension) Acute hyponatremia Hydronephrosis Bladder cancer Asthma Diabetes Bladder cancer Incomplete emptying of bladder due to benign prostatic hyperplasia Complicated urinary tract infection Family History Family history: reviewed and not pertinent Surgical History Surgical History History of surgery History of ileal conduit Social History Social History Household Members: Spouse, Family and Children Housing: House Are you a primary career development associate to a significant other at home: No Do you presently have visiting nurse or other home services: Yes Alcohol intake: never Comment: bedside Patient Tobacco Use Status: Never used Tobacco Advance Directives Date on File: 03/12/25 service: No Current occupational status: retired [employer] Allergies Allergy/AdvReac Type Severity Reaction Status Date / Time aspirin Allergy Unknown Verified 06/14/25 21:24 Beta-Blockers AdvReac Unknown Verified 06/14/25 21:24 (Beta-Adrenergic Bloc ibuprofen AdvReac Unknown Verified 06/14/25 21:24 Active Medications: Current Medications Acetaminophen (Acetaminophen 325 Mg Tablet) 650 mg PO Q6H PRN PRN Reason: Pain, Mild 1-3,fever,headache Last Admin: 06/16/25 23:12 Dose: 650 mg Albuterol Sulfate (Albuterol Sulfate 90 Mcg 8 Gm Inhaler) 1 puff INHALE QID PRN PRN Reason: Shortness of Breath Albuterol/Ipratropium (Albuterol/Iprat 2.5/0.5mg 3 Ml Ampul.Neb) 3 ml INHALE Q4H PRN PRN Reason: Shortness of Breath/Wheezing Last Admin: 06/16/25 13:44 Dose: 3 ml Ascorbic Acid (Ascorbic Acid 500 Mg Tablet) 1,000 mg PO DAILY [facility] Last Admin: 06/16/25 09:51 Dose: 1,000 mg Atorvastatin Calcium (Atorvastatin Calcium 20 Mg Tablet) 20 mg PO BEDTIME [facility] Last Admin: 06/16/25 21:30 Dose: 20 mg Bisacodyl (Bisacodyl 5 Mg Tablet.Dr) 5 mg PO DAILY [facility] Last Admin: 06/16/25 09:51 Dose: 5 mg Calcium Carbonate (Calcium Carbonate 750 Mg Tab.Chew) 750 mg PO Q4H PRN PRN Reason: Heartburn Dextrose (Dextrose 50 % 25 Gm/50 Ml Syringe) 25 gm IVPUSH Q15M PRN; Protocol PRN Reason: per Hypoglycemia Standing Ord. Docusate Sodium (Docusate Sodium 100 Mg Capsule) 100 mg PO BID [facility] Last Admin: 06/16/25 21:30 Dose: 100 mg Folic Acid (Folic Acid 1 Mg Tablet) 1 mg PO DAILY [facility] Last Admin: 06/16/25 09:51 Dose: 1 mg Glucose (Glucose Gel 15 Gm Gel..Gram.) 15 gm PO Q15M PRN; Protocol PRN Reason: per Hypoglycemia Standing Ord. Heparin Sodium (Porcine) (Heparin Sodium,Porcine 5,000 Unit/Ml Vial) 5,000 unit SUBCUT Q8H [facility] Last Admin: 06/16/25 23:13 Dose: 5,000 unit Insulin Human Lispro (Insulin Lispro 100 Unit/Ml 3 Ml Vial) 0 unit SUBCUT QIDACHS [facility]; Protocol Last Admin: 06/16/25 21:30 Dose: 2 unit Magnesium Hydroxide (Milk Of Magnesia 30 Ml Oral.Susp) 30 ml PO DAILY PRN PRN Reason: Constipation Melatonin (Melatonin 3 Mg Tablet) 6 mg PO BEDTIME PRN PRN Reason: Insomnia Meropenem (Meropenem 1 Gm Vial) 1 gm IVPUSH Q8H [facility] Last Admin: 06/16/25 17:31 Dose: 1 gm Montelukast Sodium (Montelukast Sodium 10 Mg Tablet) 10 mg PO DAILY [facility] Last Admin: 06/16/25 09:51 Dose: 10 mg Sodium Chloride (0.9 % Sodium Chloride Flush 3 Ml Syringe) 3 ml IVFLUSH QSHIFT [facility] Last Admin: 06/16/25 21:30 Dose: 3 ml Valsartan (Valsartan 40 Mg Tablet) 40 mg PO DAILY [facility] Last Admin: 06/16/25 11:55 Dose: 40 mg Home Medications ?Medication ?Instructions ?Recorded ?Confirmed ?Last Taken ?Type blood sugar diagnostic (FreeStyle #10 ea 04/18/21 01/05/24 Unknown History Lite Strips) montelukast 10 mg tablet 10 mg PO DAILY 04/18/21 06/15/25 06/14/25 History lancets 28 gauge (FreeStyle #100 ea 06/24/21 01/05/24 Unknown History Lancets) folic acid 1 mg tablet 1 mg PO DAILY 12/10/21 06/15/25 06/14/25 History albuterol sulfate 90 mcg/actuation 1 puff PO QID PRN Shortness Of 02/08/22 06/15/25 Unknown History aerosol inhaler Breath atorvastatin 20 mg tablet 20 mg PO BEDTIME 03/01/25 06/15/25 06/14/25 History telmisartan 20 mg tablet 20 mg PO DAILY 03/01/25 06/15/25 06/14/25 History bisacodyl 5 mg tablet,delayed 5 mg PO DAILY constipation 03/21/25 06/15/25 06/14/25 History release (Dulcolax (bisacodyl)) ascorbic acid (vitamin C) 1,000 mg 1,000 mg PO DAILY 05/10/25 06/15/25 06/14/25 History tablet (Vitamin C) Physical Exam Vital Signs: Vital Signs: Last Vital Signs Temp 103.1 F H 06/16/25 23:02 Pulse 90 06/16/25 23:02 Resp 18 06/16/25 23:02 BP 164/75 H 06/16/25 23:02 Pulse Ox 96 06/16/25 23:02 O2 Del Method Room Air 06/16/25 23:02 BMI result Body Mass Index 21.3 Const: General: cooperative HEENT: Head: Yes normal to inspection Face and sinus: Yes normal facial exam Mouth: Normal oral and palatal mucosa present Teeth and gingiva: dentition normal Eyes: General: appearance normal, both eyes and all related structures Pupils: Equal, round and reactive pupils present Resp: Effort & Inspection: normal respiratory effort Cardio: Rate: regular rate Rhythm: regular rhythm GI: Palpation (GI): Soft to palpation and nontender : Other: ileal conduit,darker urine General: Yes no CVA tenderness Back/Spine/Pelvis: Back: no CVA tenderness Skin: General skin exam: no rashes or lesions noted Neuro: General: moves all extremities Cranial nerves: Yes Equal, round and reactive pupils present Extrem: General: Yes normal to inspection Psych: Appearance: grossly normal Results Labs 06/17/25 15:59 06/19/25 06:07 Labs: Short CBC 06/16/25 Range/Units 08:47 WBC 8.2 (4.8-10.8) X10*3/uL Hgb 9.0 L (14.0-18.0) g/dl Hct 26.7 L (42.0-52.0) % Plt Count 108 L (160-400) X10*3/uL BMP 06/16/25 08:47 Sodium 130 L Potassium 3.9 Chloride 102 Carbon Dioxide 19 L BUN 20 H Creatinine 1.28 Calcium 8.1 L Microbiology Microbiology Results: Microbiology 06/14/25 21:40 Blood - Venous Blood Culture - Preliminary Gram negative jackie 06/14/25 21:40 Blood - Venous Blood Culture - Preliminary Gram negative jackie 06/14/25 Unknown Urine clean catch - Clean Catch Midstream Urine Culture - Final Assessment and Plan (1) Acute UTI: Status: Acute (2) Bladder cancer: Qualifiers: Bladder location: unspecified site Qualified Code(s): C67.9 - Malignant neoplasm of bladder, unspecified Status: Acute (3) Sepsis: Status: Acute Plan Sepsis Possible gram negative likely may have drug resistance E coli or Klebsiella possible this is complicated UTI. Would continue Merem Await final cultures
[2025-06-17] VITALS (12 sets, daily range): BP systolic 116–162; BP diastolic 63–72; PULSE 72–89; RESP 16–18; TEMP 36.7–39; O2SAT 97–100
[2025-06-17 07:36] LABS: Glucose, Whole Blood 98 mg/dL (60-115)
[2025-06-17] MEDS: 0.9 % Sodium Chloride Flush 3 ML SYRINGE IVFLUSH ×3 (10:36→20:52)
--- NOTE | 2025-06-17 11:00 | P.PNIM_ITS ---
Subjective Subjective Date of Service: 06/17/25 Interval History: f/u sepsis, UTI withESBL E.coli in urine Fevers resolved. hemodynamically stable Has had blood in urostomy tube today Physical Exam 2 Vital Signs: Vital Signs: Last Vital Signs Temp 98.2 F 06/17/25 07:23 Pulse 73 06/17/25 07:23 Resp 18 06/17/25 07:23 BP 143/66 H 06/17/25 07:23 Pulse Ox 100 06/17/25 07:23 O2 Del Method Room Air 06/17/25 07:23 BMI result Body Mass Index 21.3 Const: Other: General: AO X 3, no acute distress Resp: CTA bilateral CVS: S1,S2,RRR GI: +BS, NT, no distention : urostomy bag in place with pink urine Skin: No rash Neuro: motor grossly intact Psych: appropriate affect Objective Data Active Medications Acetaminophen (Acetaminophen 325 Mg Tablet) 650 mg PO Q6H PRN PRN Reason: Pain, Mild 1-3,fever,headache Last Admin: 06/16/25 23:12 Dose: 650 mg Documented By: SANDRA Albuterol Sulfate (Albuterol Sulfate 90 Mcg 8 Gm Inhaler) 1 puff INHALE QID PRN PRN Reason: Shortness of Breath Albuterol/Ipratropium (Albuterol/Iprat 2.5/0.5mg 3 Ml Ampul.Neb) 3 ml INHALE Q4H PRN PRN Reason: Shortness of Breath/Wheezing Last Admin: 06/16/25 13:44 Dose: 3 ml Documented By: SONNY Ascorbic Acid (Ascorbic Acid 500 Mg Tablet) 1,000 mg PO DAILY [facility] Last Admin: 06/17/25 10:28 Dose: 1,000 mg Documented By: BRUNO Atorvastatin Calcium (Atorvastatin Calcium 20 Mg Tablet) 20 mg PO BEDTIME [facility] Last Admin: 06/16/25 21:30 Dose: 20 mg Documented By: SANDRA Bisacodyl (Bisacodyl 5 Mg Tablet.) 5 mg PO DAILY [facility] Last Admin: 06/17/25 10:38 Dose: Not Given Documented By: BRUNO Non-Admin Reason: Patient Refused Calcium Carbonate (Calcium Carbonate 750 Mg Tab.Chew) 750 mg PO Q4H PRN PRN Reason: Heartburn Dextrose (Dextrose 50 % 25 Gm/50 Ml Syringe) 25 gm IVPUSH Q15M PRN; Protocol PRN Reason: per Hypoglycemia Standing Ord. Docusate Sodium (Docusate Sodium 100 Mg Capsule) 100 mg PO BID [facility] Last Admin: 06/17/25 10:39 Dose: Not Given Documented By: BRUNO Non-Admin Reason: Patient Refused Folic Acid (Folic Acid 1 Mg Tablet) 1 mg PO DAILY [facility] Last Admin: 06/17/25 10:27 Dose: 1 mg Documented By: BRUNO Glucose (Glucose Gel 15 Gm Gel..Gram.) 15 gm PO Q15M PRN; Protocol PRN Reason: per Hypoglycemia Standing Ord. Heparin Sodium (Porcine) (Heparin Sodium,Porcine 5,000 Unit/Ml Vial) 5,000 unit SUBCUT Q8H [facility] Last Admin: 06/17/25 10:07 Dose: Not Given Documented By: BRUNO Non-Admin Reason: hemituria, low plts Comments: MD schwarz Insulin Human Lispro (Insulin Lispro 100 Unit/Ml 3 Ml Vial) 0 unit SUBCUT QIDACHS [facility]; Protocol Last Admin: 06/17/25 09:07 Dose: Not Given Documented By: BRUNO Non-Admin Reason: No Insulin Coverage Magnesium Hydroxide (Milk Of Magnesia 30 Ml Oral.Susp) 30 ml PO DAILY PRN PRN Reason: Constipation Melatonin (Melatonin 3 Mg Tablet) 6 mg PO BEDTIME PRN PRN Reason: Insomnia Meropenem (Meropenem 1 Gm Vial) 1 gm IVPUSH Q8H [facility] Last Admin: 06/17/25 10:27 Dose: 1 gm Documented By: BRUNO Montelukast Sodium (Montelukast Sodium 10 Mg Tablet) 10 mg PO DAILY [facility] Last Admin: 06/17/25 10:27 Dose: 10 mg Documented By: BRUNO Sodium Chloride (0.9 % Sodium Chloride Flush 3 Ml Syringe) 3 ml IVFLUSH QSHIFT [facility] Last Admin: 06/17/25 10:36 Dose: 3 ml Documented By: BRUNO Valsartan (Valsartan 40 Mg Tablet) 40 mg PO DAILY [facility] Last Admin: 06/17/25 10:27 Dose: 40 mg Documented By: HO.RICCIAV Labs 06/16/25 08:47 06/16/25 08:47 Labs: Laboratory Results - last 24 hr 06/16/25 06/16/25 06/16/25 11:49 15:24 20:22 POC Glucose 97 183 H 164 H 06/17/25 07:32 POC Glucose 98 Microbiology Microbiology Results: Microbiology 06/14/25 21:40 Blood Culture - Final Blood - Venous Escherichia coli 06/14/25 21:40 Blood Culture - Preliminary Blood - Venous Escherichia coli 06/14/25 Unknown Urine Culture - Final Urine clean catch - Clean Catch Midstream Assessment and Plan (1) Acute UTI: Status: Acute Plan 74-year-old male with a past medical history of HTN, HLD, bladder cancer status post cystectomy and ileal loop urostomy; diabetes; history of bacteremia/pyelonephritis; presented to the hospital today with a chief complaint of fevers and chills. Noted to have UTI. Sepsis d/t UTI , ESBL E.coli bacteremia Continue Meropenem started on 06/15 ID consult to make final recommendation Will need IV Abx, duration unclear at this time Follow-up cultures, Tylenol for fever Mild hyponatremia: Will monitor, fluid restriction Diabetes: Insulin sliding scale Chronic metablic aciodis, stable Asthma/Cough: DuoNebs p.r.n.. Chest x-ray negative. DVT prophylaxis: Holding S Heparin d/t blood in urostomy tube, compression device Code status: Full code Quality Stroke Does the patient have a stroke diagnosis?: No VTE Prior VTE?: No VTE Risk Level:: Medical - moderate - high VTE Device Contraindication: Treatment Not Indicated VTE Drug Contraindication: N/A - Med Ordered
[2025-06-17 11:38] LABS: Glucose, Whole Blood 125 mg/dL (60-115)
[2025-06-17 16:37] LABS: Glucose, Whole Blood 199 mg/dL (60-115)
[2025-06-17 17:14] LABS: Hematocrit 26.6 % (42.0-52.0); Hemoglobin 9.0 g/dl (14.0-18.0); Mean Corpuscular HGB Conc 33.8 g/dl (31.0-36.0); Mean Corpuscular Hemoglobin 31.4 pg (27.0-33.0); Mean Corpuscular Volume 92.7 fL (80.0-98.0); NRBC Abs Auto 0.000 X10*3/uL (0.0-0.012); NRBC Pct Auto 0.0 /100WBC (0.0-0.2); Platelet Count 120 X10*3/uL (160-400); Red Blood Count 2.87 X10*6/uL (4.60-5.80); White Blood Count 6.5 X10*3/uL (4.8-10.8)
[2025-06-17 20:27] LABS: Glucose, Whole Blood 139 mg/dL (60-115)
[2025-06-17] MEDS: Albuterol/Iprat 2.5/0.5MG 3 ML AMPUL.NEB INHALE (20:57)
--- NOTE | 2025-06-17 21:51 | PC.NURSE ---
Pt has scheduled subcutaneous heparin. Last lab work was drawn this afternoon: Pt has low platelets (120). Pt had hematuria this morning but has since resolved. Urostomy now draining pale yellow urine. MD Yo notified via Tianjit. Per , heparin held.
[2025-06-18 03:22] VITALS: BP 144/65; PULSE 85; RESP 16; TEMP 36.8; O2SAT 99
[2025-06-18] MEDS: 0.9 % Sodium Chloride Flush 3 ML SYRINGE IVFLUSH ×2 (07:49→21:35)
[2025-06-18 07:56] LABS: Glucose, Whole Blood 103 mg/dL (60-115)
[2025-06-18 08:00] VITALS: BP 140/67; PULSE 76; RESP 16; TEMP 36.9; O2SAT 98
--- NOTE | 2025-06-18 10:03 | HO.PM.IMPN ---
Subjective Subjective Date of Service: 06/18/25 Interval History: f/u sepsis, UTI with ESBL E.coli in urine Fevers resolved. hemodynamically stable Blood in urostomy stopped Physical Exam Vital Signs: Vital Signs: Last Vital Signs Temp 98.4 F 06/18/25 08:00 Pulse 76 06/18/25 08:00 Resp 16 06/18/25 08:00 BP 140/67 H 06/18/25 08:00 Pulse Ox 98 06/18/25 08:00 O2 Del Method Room Air 06/18/25 08:00 BMI result Body Mass Index 21.3 Const: Other: General: AO X 3, no acute distress Resp: CTA bilateral CVS: S1,S2,RRR GI: +BS, NT, no distention Gu: urostomy clear Skin: No rash Neuro: motor grossly intact Psych: appropriate affect Objective Data Active Medications Acetaminophen (Acetaminophen 325 Mg Tablet) 650 mg PO Q6H PRN PRN Reason: Pain, Mild 1-3,fever,headache Last Admin: 06/17/25 12:23 Dose: 650 mg Documented By: BRUNO Albuterol Sulfate (Albuterol Sulfate 90 Mcg 8 Gm Inhaler) 1 puff INHALE QID PRN PRN Reason: Shortness of Breath Albuterol/Ipratropium (Albuterol/Iprat 2.5/0.5mg 3 Ml Ampul.Neb) 3 ml INHALE Q4H PRN PRN Reason: Shortness of Breath/Wheezing Last Admin: 06/17/25 20:57 Dose: 3 ml Documented By: AURELIANO Ascorbic Acid (Ascorbic Acid 500 Mg Tablet) 1,000 mg PO DAILY [facility] Last Admin: 06/18/25 08:01 Dose: 1,000 mg Documented By: MACY Atorvastatin Calcium (Atorvastatin Calcium 20 Mg Tablet) 20 mg PO BEDTIME [facility] Last Admin: 06/17/25 20:52 Dose: 20 mg Documented By: DAYANA Bisacodyl (Bisacodyl 5 Mg Tablet.Dr) 5 mg PO DAILY [facility] Last Admin: 06/18/25 08:02 Dose: Not Given Documented By: MACY Non-Admin Reason: Patient Refused Calcium Carbonate (Calcium Carbonate 750 Mg Tab.Chew) 750 mg PO Q4H PRN PRN Reason: Heartburn Dextrose (Dextrose 50 % 25 Gm/50 Ml Syringe) 25 gm IVPUSH Q15M PRN; Protocol PRN Reason: per Hypoglycemia Standing Ord. Docusate Sodium (Docusate Sodium 100 Mg Capsule) 100 mg PO BID [facility] [place] Last Admin: 06/18/25 08:02 Dose: Not Given Documented By: MACY Non-Admin Reason: Patient Refused Folic Acid (Folic Acid 1 Mg Tablet) 1 mg PO DAILY [facility] Last Admin: 06/18/25 08:02 Dose: 1 mg Documented By: MACY Glucose (Glucose Gel 15 Gm Gel..Gram.) 15 gm PO Q15M PRN; Protocol PRN Reason: per Hypoglycemia Standing Ord. Insulin Human Lispro (Insulin Lispro 100 Unit/Ml 3 Ml Vial) 0 unit SUBCUT QIDACHS [facility]; Protocol Last Admin: 06/18/25 07:47 Dose: Not Given Documented By: MACY Non-Admin Reason: No Insulin Coverage Magnesium Hydroxide (Milk Of Magnesia 30 Ml Oral.Susp) 30 ml PO DAILY PRN PRN Reason: Constipation Melatonin (Melatonin 3 Mg Tablet) 6 mg PO BEDTIME PRN PRN Reason: Insomnia Meropenem (Meropenem 1 Gm Vial) 1 gm IVPUSH Q12H [facility] [place] Last Admin: 06/17/25 21:06 Dose: 1 gm Documented By: DAYANA Montelukast Sodium (Montelukast Sodium 10 Mg Tablet) 10 mg PO DAILY [facility] Last Admin: 06/18/25 08:01 Dose: 10 mg Documented By: MACY Sodium Chloride (0.9 % Sodium Chloride Flush 3 Ml Syringe) 3 ml IVFLUSH QSHIFT [facility] Last Admin: 06/18/25 07:49 Dose: 3 ml Documented By: MACY Valsartan (Valsartan 40 Mg Tablet) 40 mg PO DAILY [facility] Last Admin: 06/18/25 08:01 Dose: 40 mg Documented By: MACY Labs 06/17/25 15:59 06/16/25 08:47 Labs: Laboratory Results - last 24 hr 06/17/25 06/17/25 06/17/25 11:31 15:59 16:33 MCV 92.7 MCH 31.4 MCHC 33.8 RDW 14.4 Plt Count 120 L MPV 11.5 Absolute Nucleated RBC 0.000 Nucleated RBC % (auto) 0.0 POC Glucose 125 H 199 H 06/17/25 06/18/25 20:18 07:28 MCV MCH MCHC RDW Plt Count MPV Absolute Nucleated RBC Nucleated RBC % (auto) POC Glucose 139 H 103 Microbiology Microbiology Results: Microbiology 06/14/25 21:40 Blood Culture - Preliminary Blood - Venous Escherichia coli 06/14/25 21:40 Blood Culture - Final Blood - Venous Escherichia coli Assessment and Plan (1) Acute UTI: Status: Acute Plan 74-year-old male with a past medical history of HTN, HLD, bladder cancer status post cystectomy and ileal loop urostomy; diabetes; history of bacteremia/pyelonephritis; presented to the hospital today with a chief complaint of fevers and chills. Noted to have UTI. Sepsis d/t UTI , ESBL E.coli bacteremia Continue Meropenem started on 06/15 ID consult to make final recommendation Will need IV Abx, duration unclear at this time Follow-up cultures, Tylenol for fever Mild hyponatremia: Will monitor, fluid restriction Bleeding from urostomy bag, resolved, urine is clear, holding heparin Diabetes: Insulin sliding scale Chronic metablic aciodis, stable Asthma/Cough: DuoNebs p.r.n.. Chest x-ray negative. DVT prophylaxis: Holding S Heparin d/t blood in urostomy tube, compression device Code status: Full code Quality Stroke Does the patient have a stroke diagnosis?: No VTE Prior VTE?: No VTE Risk Level:: Medical - moderate - high VTE Device Contraindication: Treatment Not Indicated VTE Drug Contraindication: N/A - Med Ordered
[2025-06-18 11:33] LABS: Glucose, Whole Blood 151 mg/dL (60-115)
[2025-06-18 15:32] VITALS: BP 145/66; PULSE 74; RESP 18; TEMP 37.1; O2SAT 100
[2025-06-18 17:01] LABS: Glucose, Whole Blood 129 mg/dL (60-115)
[2025-06-18 20:00] VITALS: BP 147/68; PULSE 76; RESP 16; TEMP 37.4; O2SAT 100
[2025-06-18] MEDS: Albuterol/Iprat 2.5/0.5MG 3 ML AMPUL.NEB INHALE (21:19)
[2025-06-18 21:34] LABS: Glucose, Whole Blood 191 mg/dL (60-115)
[2025-06-19] MEDS: guaiFENesin DM 100/10/5 ML 5 ML SYRUP PO ×2 (03:02→16:29)
[2025-06-19 03:31] VITALS: BP 122/58; PULSE 86; RESP 14; TEMP 36.8; O2SAT 98
[2025-06-19 06:56] LABS: Anion Gap 12 (12-20); Blood Urea Nitrogen 14 mg/dL (9-16); Calcium 7.9 mg/dL (8.4-10.2); Carbon Dioxide 17 mmol/L (22-29); Chloride 108 mmol/L (96-108); Creatinine Clr Calc Pharmacy 39.4; Estimated Glomerular Filt Rate > 60; Potassium 3.8 mmol/L (3.3-5.1); Sodium 133 mmol/L (135-145)
[2025-06-19 07:44] VITALS: BP 141/65; PULSE 74; RESP 16; TEMP 36.2; O2SAT 100
[2025-06-19 07:58] LABS: Glucose, Whole Blood 100 mg/dL (60-115)
[2025-06-19] MEDS: 0.9 % Sodium Chloride Flush 3 ML SYRINGE IVFLUSH ×2 (08:18→16:30)
--- NOTE | 2025-06-19 08:40 | HO.PM.IMPN ---
Subjective Subjective Date of Service: 06/19/25 Interval History: f/u sepsis, E. coli Fevers resolved. hemodynamically stable Blood in urostomy stopped Physical Exam Vital Signs: Vital Signs: Last Vital Signs Temp 97.2 F 06/19/25 07:44 Pulse 74 06/19/25 07:44 Resp 16 06/19/25 07:44 BP 141/65 H 06/19/25 07:44 Pulse Ox 100 06/19/25 07:44 O2 Del Method Room Air 06/19/25 03:31 BMI result Body Mass Index 21.3 Const: Other: General: AO X 3, no acute distress Resp: CTA bilateral CVS: S1,S2,RRR GI: +BS, NT, no distention Gu: urostomy clear Skin: No rash Neuro: motor grossly intact Psych: appropriate affect Objective Data Active Medications Acetaminophen (Acetaminophen 325 Mg Tablet) 650 mg PO Q6H PRN PRN Reason: Pain, Mild 1-3,fever,headache Last Admin: 06/17/25 12:23 Dose: 650 mg Documented By: BRUNO Albuterol Sulfate (Albuterol Sulfate 90 Mcg 8 Gm Inhaler) 1 puff INHALE QID PRN PRN Reason: Shortness of Breath Albuterol/Ipratropium (Albuterol/Iprat 2.5/0.5mg 3 Ml Ampul.Neb) 3 ml INHALE Q4H PRN PRN Reason: Shortness of Breath/Wheezing Last Admin: 06/18/25 21:19 Dose: 3 ml Documented By: DONNA Ascorbic Acid (Ascorbic Acid 500 Mg Tablet) 1,000 mg PO DAILY [facility] Last Admin: 06/19/25 08:16 Dose: 1,000 mg Documented By: ADELE Atorvastatin Calcium (Atorvastatin Calcium 20 Mg Tablet) 20 mg PO BEDTIME [facility] Last Admin: 06/18/25 19:39 Dose: 20 mg Documented By: DONNA Bisacodyl (Bisacodyl 5 Mg Tablet.) 5 mg PO DAILY [facility] Last Admin: 06/19/25 08:19 Dose: Not Given Documented By: ADELE Non-Admin Reason: Patient Refused Calcium Carbonate (Calcium Carbonate 750 Mg Tab.Chew) 750 mg PO Q4H PRN PRN Reason: Heartburn Dextrose (Dextrose 50 % 25 Gm/50 Ml Syringe) 25 gm IVPUSH Q15M PRN; Protocol PRN Reason: per Hypoglycemia Standing Ord. Docusate Sodium (Docusate Sodium 100 Mg Capsule) 100 mg PO BID [facility] Last Admin: 06/19/25 08:16 Dose: Not Given Documented By: ADELE Non-Admin Reason: Patient Refused Folic Acid (Folic Acid 1 Mg Tablet) 1 mg PO DAILY [facility] Last Admin: 06/19/25 08:16 Dose: 1 mg Documented By: ADELE Glucose (Glucose Gel 15 Gm Gel..Gram.) 15 gm PO Q15M PRN; Protocol PRN Reason: per Hypoglycemia Standing Ord. Guaifenesin/Dextromethorphan (Guaifenesin Dm 100/10/5 Ml 5 Ml Syrup) 5 ml PO Q6H PRN PRN Reason: Cough Last Admin: 06/19/25 03:02 Dose: 5 ml Documented By: DONNA Gentamicin Sulfate 260 mg/ (Sodium Chloride) 106.5 mls @ 106.5 mls/hr IV Q48H [facility] Last Infusion: 06/18/25 22:05 Dose: Infused Documented By: DONNA Insulin Human Lispro (Insulin Lispro 100 Unit/Ml 3 Ml Vial) 0 unit SUBCUT QIDACHS [facility]; Protocol Last Admin: 06/19/25 07:48 Dose: Not Given Documented By: ADELE Non-Admin Reason: No Insulin Coverage Magnesium Hydroxide (Milk Of Magnesia 30 Ml Oral.Susp) 30 ml PO DAILY PRN PRN Reason: Constipation Melatonin (Melatonin 3 Mg Tablet) 6 mg PO BEDTIME PRN PRN Reason: Insomnia Montelukast Sodium (Montelukast Sodium 10 Mg Tablet) 10 mg PO DAILY [facility] Last Admin: 06/19/25 08:16 Dose: 10 mg Documented By: ADELE Sodium Chloride (0.9 % Sodium Chloride Flush 3 Ml Syringe) 3 ml IVFLUSH QSHIFT [facility] Last Admin: 06/19/25 08:18 Dose: 3 ml Documented By: ADELE Valsartan (Valsartan 40 Mg Tablet) 40 mg PO DAILY [facility] Last Admin: 06/19/25 08:17 Dose: 40 mg Documented By: ADELE Labs 06/17/25 15:59 06/19/25 06:07 Labs: Laboratory Results - last 24 hr 06/18/25 06/18/25 06/18/25 11:29 16:53 21:07 Anion Gap Estim Creat Clear Calc Estimated GFR POC Glucose 151 H 129 H 191 H Random Glucose Calcium 06/19/25 06/19/25 06:07 07:46 Anion Gap 12 Estim Creat Clear Calc 39.4 Estimated GFR > 60 POC Glucose 100 Random Glucose 101 Calcium 7.9 L Microbiology Microbiology Results: Microbiology 06/14/25 21:40 Blood Culture - Final Blood - Venous Escherichia coli Assessment and Plan (1) Acute UTI: Status: Acute Plan 74-year-old male with a past medical history of HTN, HLD, bladder cancer status post cystectomy and ileal loop urostomy; diabetes; history of bacteremia/pyelonephritis; presented to the hospital today with a chief complaint of fevers and chills. Noted to have UTI. Sepsis d/t UTI , ESBL E.coli bacteremia Continue Meropenem was on 06/15 to 06/18, unfortunately E. coli is resistant to everthing except Gent. Gent started 06/18, ID recommend for 7 days, Midline requested Follow-up cultures, Tylenol for fever Mild hyponatremia, chronic and resolved. 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 Chest x-ray negative. DVT prophylaxis: Holding S Heparin d/t blood in urostomy tube, compression device Code status: Full code Dispo: hoping today Quality Stroke Does the patient have a stroke diagnosis?: No VTE Prior VTE?: No VTE Risk Level:: Medical - moderate - high VTE Device Contraindication: Treatment Not Indicated VTE Drug Contraindication: N/A - Med Ordered
--- NOTE | 2025-06-19 11:27 | PM.EVENT ---
Event Note Date of Service: 06/19/25 Event Note: Per ID, no repeat culture needed before midline or PICC line Time Spent With Patient Time: Total time managing care of this patient today ____ minutes.
[2025-06-19 11:41] LABS: Glucose, Whole Blood 218 mg/dL (60-115)
--- NOTE | 2025-06-19 13:03 | HO.MIDLINE_ITS ---
Midline Insertion MIDLINE INSERTION Diagnosis:Sepsis and E. Coli Indication: Antibx Pertinent Labs: reviewed Technique: Using sterile technique including cap and mask, glove and drape, the Right arm was prepped and draped in the usual sterile fashion of full barrier technique with G. Using ultrasound guidance, Right Brachial vein access was obtained. [id number] Powerglide ST Non-PASV Midline was positioned. The procedure was performed in 7. Ultrasound was used to document vein patency and for needle entry. A formal ultrasound picture was recorded. [facility] [employer] has released the line for use and it is currently dressed with a StatLock, Tegaderm, and CHG disc. Verification has been performed for blood return and line patency. Arm Circumference: 27.5Cm Equipment: BARD PowerGlide ST Non-PASV midline Catheter Catheter Type: [id number] Powerglide ST Non-PASV Midline Lot #: [id number]
[2025-06-19 13:17] VITALS: BP 141/69; PULSE 73; RESP 16; TEMP 36.7; O2SAT 98
--- NOTE | 2025-06-19 13:39 | MHC.CM.PN ---
Addendum entered by Chaya Baez RN 06/19/25 16:11: Patient medically cleared for dc home w/ [facility] and [facility]. IV med changed to q36 after labs resulted. Next dose 06/20 at 8am and next lab due 06/20 2pm. Patient/ and [facility] aware. Private transport. Original Note: PER MD ROUNDS, WILL NEED 7 DAYS IV ABX (Q48). MET WITH PATIENT AND AT BEDSIDE. THEY ARE AGREEABLE TO PLAN. CAN ASSIST. [facility] RN TO BEDSIDE FOR TEACH/ORDERS. MIDLINE IN PLACE. AWAITING LABS. LIKELY DC TODAY.
[2025-06-19 15:21] VITALS: BP 135/65; PULSE 71; RESP 12; TEMP 36.1; O2SAT 100
--- NOTE | 2025-06-19 15:32 | P.DS_ITS ---
DS: Providers Provider Date of Service: 06/19/25 Date of admission: 06/14/25 23:29 Date of discharge: 06/19/25 Primary care physician: Hilary Jimenez MD Consults: 06/16/25 10:46 Consult to Infectious Diseases Routine Consulting Provider: [facility] [place] [facility] Reason for consultation: GNR sepsis and bacteremia, UTI with fevers Has provider been notified: No DS: Diagnosis Discharge Diagnosis (1) Acute UTI: Status: Acute DS: Summary Hospital Course Hospital Course: admission hpi Chief Complaint: fever 74-year-old male with a past medical history of HTN, HLD, bladder cancer status post cystectomy and ileal loop urostomy; diabetes; history of bacteremia/pyelonephritis; presented to the hospital today with a chief complaint of fevers and chills. Patient also reports occasional cough. Denies any nausea or vomiting. Denies any sputum production. Denies any chest pain or palpitations. Review of all other systems is negative except mentioned above ER course: Per ER team, patient has no abdominal tenderness; blood pressure was stable; urinalysis abnormal consistent with UTI. Given antibiotics. Hospital course: 74-year-old male with a past medical history of HTN, HLD, bladder cancer status post cystectomy and ileal loop urostomy; diabetes; history of bacteremia/pyelonephritis; presented to the hospital today with a chief complaint of fevers and chills. Noted to have UTI. Sepsis d/t UTI , ESBL E.coli bacteremia Continue Meropenem was on 06/15 to 06/18, unfortunately E. coli is resistant to everthing except Gent. Gent started 06/18, ID recommend for 7 days, Midline requested, will get gent 260 mg every 36 hours until Jun 24, to check trough tomorrow at 2 pm instruction given to [facility]. No longer has fever or urinary symptoms Mild hyponatremia, chronic and resolved. 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 Chest x-ray negative. Time Attestation Discharge Coordination Time (in mins): 45 Quality: Safe Use of Opioids Does Pt have an Active Cancer Diagnosis on the Problem List?: No Quality: Stroke Does the patient have a stroke diagnosis?: No Physical Exam Vital Signs: Vital Signs: Last Vital Signs Temp 97 F 06/19/25 15:21 Pulse 71 06/19/25 15:21 Resp 12 06/19/25 15:21 BP 135/65 06/19/25 15:21 Pulse Ox 100 06/19/25 15:21 O2 Del Method Room Air 06/19/25 15:21 BMI result Body Mass Index 21.3 DS: Data Data Completed and Pending Completed studies during hospitalization [Text1]: Procedures Inspection of Bladder, Via Natural or Artificial Opening Endoscopic (03/01/25) Repair Abdominal Wall, Stoma, External Approach (03/01/25) Repair Small Intestine, Open Approach (03/14/25) Transfusion of Nonautologous Platelets into Peripheral Vein, Percutaneous Approach (03/14/25) Transfusion of Nonautologous Red Blood Cells into Peripheral Vein, Percutaneous Approach (03/14/25) Labs on day of discharge: Laboratory Results - last 24 hr 06/18/25 06/18/25 06/19/25 16:53 21:07 06:07 Sodium 133 L Potassium 3.8 Chloride 108 Carbon Dioxide 17 L Anion Gap 12 BUN 14 Creatinine 1.17 Estim Creat Clear Calc 39.4 Estimated GFR > 60 POC Glucose 129 H 191 H Random Glucose 101 Calcium 7.9 L Random Gentamicin 5.7 06/19/25 06/19/25 07:46 11:36 Sodium Potassium Chloride Carbon Dioxide Anion Gap BUN Creatinine Estim Creat Clear Calc Estimated GFR POC Glucose 100 218 H Random Glucose Calcium Random Gentamicin Preliminary micro results at discharge 06/18/25 10:52 Blood Culture - Preliminary Blood - Venous No growth after 24 hours. 06/18/25 10:52 Blood Culture - Preliminary Blood - Venous No growth after 24 hours. Discharge Plan Discharge Anticipated Discharge Date/Time: 06/19/25 15:25 Patient Disposition: Home Health Service Discharge Diagnosis: UTI due to resistant UTI Referrals: [facility] [Other] - 1 Day Referral Note: [facility] will deliver your IV antibiotics [facility] [Outside] - 1 Day Hilary Jimenez MD [Primary Care Provider, Internal Medicine] - 1 Week Discharge Medications: New gentamicin in NaCl (iso-osm) 120 mg/100 mL piggyback 260 mg IV Q36H Rx Instructions: next dose is Jun 20 at 8 am Continued (DME) Assura Urostomy Pouch 10 misc See Rx Instructions .Route Qty: 10 4RF Rx Instructions: Item number [id number] (DME) Ceraplus New Image [id number] 44mm precut concave wafer See Rx Instructions .Route .MEDSUPPLY Qty: 30 12RF Rx Instructions: As directed (DME) Ceraplus New Image [id number] 44mm precut 32mm wafer See Rx Instructions .Route .MEDSUPPLY Qty: 30 12RF Rx Instructions: As directed (DME) Urostomy Elodia 10164 44mm bag See Rx Instructions .Route .MEDSUPPLY Qty: 30 12RF Rx Instructions: As directed change every 3 days. (DME) gauze bandage 4 X 4 bandage See Rx Instructions .Route Qty: 1200 4RF Rx Instructions: As directed for urostomy. (DME) MicroHesive Stoma Paste Paste See Rx Instructions .Route Qty: 60 5RF Rx Instructions: Securi-T stoma paste. (DME) adhesive tape 1 X 10 -yard tape See Rx Instructions .Route Qty: 120 3RF Rx Instructions: As directed albuterol sulfate 90 mcg/actuation HFA aerosol inhaler 1 puff PO QID PRN (Reason: Shortness Of Breath) bisacodyl [Dulcolax (bisacodyl)] 5 mg tablet,delayed release (DR/EC) 5 mg PO DAILY ascorbic acid (vitamin C) [Vitamin C] 1,000 mg Tablet 1,000 mg PO DAILY atorvastatin 20 mg tablet 20 mg PO BEDTIME telmisartan 20 mg tablet 20 mg PO DAILY montelukast 10 mg tablet 10 mg PO DAILY (DME) FreeStyle Lite Strips Strip See Rx Instructions Not Applicable DAILY Qty: 10 Rx Instructions: As directed (DME) lancets [FreeStyle Lancets] 28 gauge misc See Rx Instructions topical BID Qty: 100 Rx Instructions: As directed folic acid 1 mg tablet 1 mg PO DAILY Discharge Orders: Discharge Order (Routine); Ordered 06/19/25 Ordered By: Sukhwinder Silav Diet: Advance to usual diet Activity on Discharge: As tolerated Stand Alone Forms: Patient Portal Discharge page Print Language: Dominican Care Plan Goals: recovery from UTI Health Concerns: Resistant E.coli UTI Plan of Treatment: Gentamycin 260 mg every 36 hours, next dose Jun 20 at 8 am, check level at 2 pm tomorrow Jun 20 last day if Jun 24 Assessment: see eva
--- NOTE | 2025-06-19 15:41 | W.MHC.F2F ---
Service Date Service Date: 06/19/25 Encounter Date of encounter: 06/19/25 Reasons for Services Signs and symptoms assessed: Sespsis due to uTI, weakness Reason for detention: medication management, medication treatment and teach disease management Homebound: Leaving the home is medically contraindicated at this time without the asist of a device and/or another person due th the listed conditions above and below. Reason homebound: weakness related to hospital stay Homebound supporting statement: Homebound due to sepsis from resistant uti, causing weakness and therefore needs the assistance of another person Certification: Based on the above findings, I certify that this patient is confined to the home and needs intermittent detention care, physical therapy and/or speech therapy, or continues to need occupational therapy. The patient is under my care, and I have initiated the establishment of the plan of care. The patient will be followed by a physician who will periodically review the plan of care. Time Spent With Patient Time: Total time managing care of this patient today ____ minutes.
--- NOTE | 2025-06-19 15:56 | P.PNID_ITS ---
Subjective Subjective Date of Service: 06/19/25 Critical Care Time (minutes): 15 Comment: He is supposed to go to [facility] for wedding at end of week. He feels better and no fever or chills. Objective Data Labs 06/17/25 15:59 06/19/25 06:07 Labs: Laboratory Results - last 24 hr 06/18/25 06/18/25 06/19/25 16:53 21:07 06:07 Sodium 133 L Potassium 3.8 Chloride 108 Carbon Dioxide 17 L Anion Gap 12 BUN 14 Creatinine 1.17 Estim Creat Clear Calc 39.4 Estimated GFR > 60 POC Glucose 129 H 191 H Random Glucose 101 Calcium 7.9 L Random Gentamicin 5.7 06/19/25 06/19/25 07:46 11:36 Sodium Potassium Chloride Carbon Dioxide Anion Gap BUN Creatinine Estim Creat Clear Calc Estimated GFR POC Glucose 100 218 H Random Glucose Calcium Random Gentamicin Microbiology Microbiology Results: Microbiology 06/18/25 10:52 Blood - Venous Blood Culture - Preliminary No growth after 24 hours. 06/18/25 10:52 Blood - Venous Blood Culture - Preliminary No growth after 24 hours. 06/14/25 21:40 Blood - Venous Blood Culture - Final Escherichia coli 06/14/25 21:40 Blood - Venous Blood Culture - Final Escherichia coli 06/14/25 Unknown Urine clean catch - Clean Catch Midstream Urine Culture - Final Physical Exam 2 Vital Signs: Vital Signs: Last Vital Signs Temp 97 F 06/19/25 15:21 Pulse 71 06/19/25 15:21 Resp 12 06/19/25 15:21 BP 135/65 06/19/25 15:21 Pulse Ox 100 06/19/25 15:21 O2 Del Method Room Air 06/19/25 15:21 BMI result Body Mass Index 21.3 Const: General: cooperative HEENT: Head: Yes normal to inspection Face and sinus: Yes normal facial exam Mouth: Normal oral and palatal mucosa present Teeth and gingiva: d entition normal Eyes: General: appearance normal, both eyes and all related structures P upils: Equal, round and reactive pupils present Resp: Effort & Inspection: normal respiratory effort Cardio: Rate: regular rate Rhythm: regular rhythm GI: Palpation (GI): Soft to palpation and nontender : General: Yes no CVA tenderness Back/Spine/Pelvis: Back: no CVA tenderness Skin: General skin exam: no rashes or lesions noted Neuro: General: moves all extremities Cranial nerves: Yes Equal, round and reactive pupils present Extrem: General: Yes normal to inspection Psych: Appearance: grossly normal Assessment and Plan Assessment and plan (1) Acute UTI: Problem details: E coli sepsis blood infection sensitive to Gentamicin only Status: Acute Assessment and Plan: Would continue Gentamicin for a week (getting better even though not on gentamicin)and patient doesnt want to stay any longer in [place] but wants to go to [place] for wedding at end of week. [place] [facility] [place] [place] Gentamicin every 36 hours and draw random gent level 6 hours after tomorrows dose,target level per pharmacy nomogram It would be better if he stayed two weeks but if declines then get care in [place] if worsens ?go with fosfomycin 3 g packet. (2) Urologic bleed: Status: Acute (3) Bladder cancer: Status: Acute Time Spent With Patient Time: Total time managing care of this patient today ____ minutes.
[2025-06-19 16:21] LABS: Glucose, Whole Blood 118 mg/dL (60-115)
--- NOTE | 2025-07-29 16:19 | P.CDIM_ITS ---
PROVIDER RESPONSE TEXT: To clarify, the appropriate diagnosis supported by the clinical indicators: Hematuria is not due to the urostomy QUERY TEXT: PHYSICIAN'S DOCUMENTATION REQUEST Date of Query: 07/18/2025 09:33 AM EST Patient Name: Alec Agosto Admit Date: 06/15/2025 Dear Sukhwinder Silva MD, RETROSPECTIVE QUERY A review of the medical record indicates additional documentation may be needed. Please review below and update the documentation accordingly. Clinical Indicators: Admit 06/14/25: Progress note dated 06/17/25 - He has blood in urostomy today. Progress note dated 06/19/25 - Bleeding from urostomy bag, resolved, urine is clear, holding heparin. Discharge summary 06/19/25 - History of HTN, bladder cancer s/p cystectomy and ileal loop urostomy. Presented to the hospital with fevers and chills, noted UTI. Sepsis d/t UTI. ESBL E.coli bacteremia. Bleeding from urostomy bag, resolved. Based on the above, could you clarify any further specifics for the documentation of the Hematuria for this admission? Hematuria is not due to the urostomy Hematuria is due to the urostomy Other (explain) Clinically unable to determine (explain) Thank you, Betsey Ramirez, CCS, CDIS Use of terms such as suspected, likely, concern for, or probable (associated with a specific diagnosis that is being evaluated, monitored, or treated as if it exists) are acceptable and can be coded in the inpatient setting, when documented at the time of discharge. Please use your independent medical judgment in providing your response. THIS QUERY IS PART OF THE PERMANENT MEDICAL RECORD
== END 2025-06-19 18:17 | disposition home health service (06) | DRG 690 ==
LOC: HO.ED 23:17 → HO.EDOVER 23:36 → HO.IMC 06-15 14:49 → HO.S3 06-17 11:30
PROVIDERS: Emergency Medicine; Admitting Provider Hospitalist; Emergency Provider Emergency Medicine; PCP Internal Medicine; Visit Provider Internal Medicine
DX: N39.0 Urinary tract infection, site not specified (principal); E87.22 Chronic metabolic acidosis; Z16.12 Extended spectrum beta lactamase (ESBL) resistance; Z16.24 Resistance to multiple antibiotics; R31.0 Gross hematuria; J45.909 Unspecified asthma, uncomplicated; B96.20 Unspecified Escherichia coli [E. coli] as the cause of diseases classified elsewhere; Z85.51 Personal history of malignant neoplasm of bladder; Z20.822 Contact with and (suspected) exposure to COVID-19; Z79.899 Other long term (current) drug therapy
CPT/HCPCS: 36410; 36415; 71045; 80048; 80053; 80076; 80170; 81001; 81003; 82947; 83605; 85025; 85027; 85610; 85730; 87040; 87077; 87086; 87186; 87205; 87637; 94640; 99285; C1894; J0131; J0696; J1580; J1644; J2185; J7120

== ENCOUNTER → 2025-06-14 21:45 | Outpatient (BNV) | payer OTHER, SELFPAY | PROVIDERS: Emergency Provider Emergency Medicine; Visit Provider Radiology Diagnostic Radiology | DX: R50.9 Fever, unspecified (principal); A41.9 Sepsis, unspecified organism | CPT/HCPCS: 71045 ==

== ENCOUNTER → 2025-06-14 23:29 | Outpatient (BNV) | payer OTHER, SELFPAY | PROVIDERS: Admitting Provider Hospitalist; Emergency Provider Emergency Medicine; Visit Provider Internal Medicine | DX: N39.0 Urinary tract infection, site not specified (principal) | CPT/HCPCS: 99223; 99232; 99233; 99499; G0180 ==

== ENCOUNTER → 2025-06-14 23:29 | Outpatient (BNV) | payer OTHER, SELFPAY | PROVIDERS: Admitting Provider Hospitalist; Emergency Provider Emergency Medicine; PCP Internal Medicine; Visit Provider Internal Medicine | DX: N39.0 Urinary tract infection, site not specified (principal); C67.9 Malignant neoplasm of bladder, unspecified; A41.9 Sepsis, unspecified organism; N39.8 Other specified disorders of urinary system | CPT/HCPCS: 99222; 99232 ==

== ENCOUNTER 2025-06-20 11:06 | Emergency (ER) | payer OTHER, SELFPAY ==
--- OUTSIDE RECORDS SUMMARY | 2023-12-29 09:30 | XMS_ITS ---
Author Organization Darrian Ziegler III, MD Address [address] [place] [address] Care Team Providers Care Septic Technician Name Role Phone Tony PINK, [facility] Primary Care Provider Dr. Darrian Smith III [...] Date Provider Diagnosis Darrian Ziegler III, MD [address] [place] [address] [place] [address] 12/29/2023 Darrian Ziegler HTN (hypertension) I 10 [...] Provider Name:Darrian Ziegler , 06/21/2025 03:30:00 PM, [address] [place] [address] [address], [place], [address], Provider Name:Darrian Ziegler , 12/11/2025 02:00:00 PM, [address] [place] [address] [address], [place], [phone], Progress Notes * Zehra AGOSTO KDOB: (73 yo M)Acc No.[id number]:12/29/2023 Progress Notes Patient: Zehra Angel Provider: Yahaira Ziegler MD :1950 A ge:73 Y S ex:Male Date:12/29/2023 Address:[address] [place], [place] [id number] Pcp:Hilary Jimenez MD Subjective: * Chief Complaints: [...] medical issues. Her into the emergency room [facility] December 22, 2023 for a urinary tract [...] ggressive non-smoker Quentin olivares was born in [facility] and now lives in [place], [place]. He is and has several children. [...] 30 L >40 - mg/dL L ab:Comprehensive [place]. Panel Fast (Order Date - 12/18/2023) (Collection [...] Range?Hemoglobin A1c %6.2H<6.0 - % ?Estimated Average Hforvsq750- mg/dL ???Lab:Microalbumin, Random (Order Date - 12/18/2023) (Collection Date - 12/18/2023)?ValueReference Range?Creatinine Urine75.67- mg/dL ?Microalbumin Gygud324.0- mg/L?Microalbum Creatinine Ratio Ur199.5 H<30 - ug/mg [...] 12/29/2023 Generated for Ana cabrera/Linden/eTarmanismitting on: 1 08/20/2024 02:02 PM EST History and Physical Notes * HPI (History of Present Illness) Category Sub-Category Detail Notes COVID-19 Screening Questions Have you had any new onset fever, chills, cough, congestion, sore throat, shortness of breath, muscle aches?: No Have you been exposed to the virus withi n the last 10 days?: No Have you travelled internationally in e last 10 days?: No Have you been [...]
--- OUTSIDE RECORDS SUMMARY | 2024-05-02 10:30 | XMS_ITS ---
Author Organization Darrian Ziegler III, MD Address [address] [place] [address] Care Team Providers Care Cardiac Nurse Specialist Name Role Phone Tony PINK, [facility] Primary Care Provider Dr. Darrian Smith III Unavailable [phone] Allergies Allergen (clinical drug ingredient) Drug/Non Drug [...] Date Provider Diagnosis Darrian Ziegler III, MD [address] [place] [address] [place], [place] [phone] 05/02/2024 Darrian Ziegler HTN (hypertension) I 10 [...] the liver has been done by his bag machine helper, Dr. Burnett. It showed thickening of the [...] Provider Name:Darrian Ziegler , 06/21/2025 03:30:00 PM, [address] [place] [address] [address], [place], [address], Provider Name:Darrian Ziegler , 12/11/2025 02:00:00 PM, [address] [place] [address] [address], [place], [address], Progress Notes * Zehra AGOSTO KDOB: (74 yo M)Acc No.[id number]:05/02/2024 Progress Notes Patient: Candelario GALICIAguylinnearoseanne Sissy Provider: Yahaira Ziegler MD :1950 A ge:74 Y S ex:Male Date:05/02/2024 Address:[address] [place], [place] [phone] Pcp:Hilary Jimenez MD Subjective: * Chief Complaints: [...] ggressive non-smoker Quentin olivares was born in [facility] and now lives in [place], [place]. He is and has several children. [...] HR:68, Temp:97.2, Wt-k.06. * P ast Orders: Lab:[facility] Esposito l Fast * Collection Date 04/15/2024 12/18/2023 [...] the liver has been done by his bag machine helper, Dr. Burnett. It showed thickening of the [...] Ziegler MD Date: 0 05/02/2024 Generated for Ana cabrera/Linden/Reneeitting on: 08/20/2024 02:01 PM EST History and Physical Notes * [...]
--- OUTSIDE RECORDS SUMMARY | 2024-12-26 04:20 | XMS_ITS ---
Author Organization [facility] Address [address] [facility] [address] [place] [address] Care Team Providers Care Grass Farmer Name Role Phone Hilary Jimenez Primary Care Provider Unavailab Joe Haryd Jr REASON FOR VISIT cirrhosis Encounters Encounter Location Date Provider Diagnosis [facility] [address] [facility] [address] [place] [address] 12/26/2024 Joe Burnett Jr Plan Of Treatment Next Appt Details Provider Name:Joe estrada Jr, 05/24/2026 01:35:00 PM, [address] [facility], [address], [place], [address], Progress Notes * AGOSTO, Zehra KDOB: (75 yo M)Acc No.[id number]:12/26/2024 Progress Notes Patient: Candelario GALICIAchandu Sissy Provider: Symone Burnett MD :1950 A ge:74 Y S ex:Male Date:12/26/2024 Address:[address] [place] [address] Pcp:Hilary Jimenez Subjective: * Chief Complaints: * 1 . Cirrhosis. * Medical History: Objective: * Vitals: Assessment: Plan: * Treatment: * * The named appointment provid er may or may not be the originator of this progress note, and it is not deemed complete until electronically signed by the appointment provider. Sign off status: Pending * Provider: Symone Burnett MD Date: 0 12/26/2024 Generated for Ana cabrera/Linden/Nigel on: 08/20/2024 02:02 PM EST
--- OUTSIDE RECORDS SUMMARY | 2024-12-27 12:00 | XMS_ITS ---
Author Organization Darrian Ziegler III, MD Address [address] [facility] [place] [address] Care Team Providers Care Continuous Absorption Process Operator Name Role Phone Tony PINK, Hilary Primary Care Provider Dr. Darrian Smith III REASON FOR VISIT Followup Encounters Encounter Location Date Provider Diagnosis Darrian Ziegler III, MD [address] [place] [address] [place] [address] 12/27/2024 Darrian Ziegler Plan Of Treatment Next Appt Details Provider Name:Darrian Ziegler , 06/21/2025 03:30:00 PM, [address] [place] [address] [place], [address], Provider Name:Darrian Ziegler , 12/11/2025 02:00:00 PM, [address] [place] [address] [place], [address], Progress Notes * Zehra AGOSTO KDOB: (75 yo M)Acc No.[id number]:12/27/2024 Progress Notes Patient: Zehra GALICIA Provider: Yahaira Ziegler MD :1950 A ge:74 Y S ex:Male Date:12/27/2024 Phone: Address:[address] [place] [address] Pcp:Hilary Jimenez MD Subjective: * Chief Complaints: [...] 0 12/27/2024 Generated for Ana cabrera/Linden/Nigel on: 08/20/2024 02:01 PM EST
--- OUTSIDE RECORDS SUMMARY | 2025-01-31 05:15 | XMS_ITS ---
Author Organization Darrian Ziegler III, MD Address [address] [place] [address] Care Team Providers Care Photo Print Specialist Name Role Phone Tony PINK, [facility] Primary Care Provider Dr. Darrian Smith [...] Provider Diagnosis Darrian Ziegler III, MD [address] [place] [address] DR [place], KAREN [address] 01/31/2025 Darrian Ziegler Urothelial carcinoma C68.9 ; [...] the liver has been done by his dimensional inspector, Dr. Burnett. It showed thickening of the [...] Name:Darrian Ziegler , 06/21/2025 03:30:00 PM, [address] [place] [address] [address] [place], [place], [address], Provider Name:Darrian Ziegler , 12/11/2025 02:00:00 PM, [address] [place] [address] BUD[address] BOYD, [place], [address], Progress Notes * Zehra AGOSTO KDOB: (74 yo M)Acc No.[id number]:01/31/2025 Progress Notes Patient: Kana GALICIArichardra Sheehan Provider: Yahaira Ziegler MD :1950 A ge:74 Y S ex:Male Date:01/31/2025 Phone: Address:[address] [place] [phone] Pcp:Hilary Jimenez MD Subjective: * Chief Complaints: [...] non-smoker Quentin olivares was born in [facility] and now lives in [place], [place]. He is and has several children. [...] the liver has been done by his dimensional inspector, Dr. Burnett. It showed thickening of the [...] 0 01/31/2025 Generated for Ana cabrera/Linden/Reneeitting on: 08/20/2024 02:00 PM EST History and Physical Notes * [...]
--- OUTSIDE RECORDS SUMMARY | 2025-03-07 06:00 | XMS_ITS ---
Author Organization [facility] Address [address] [facility] [address] [place] [phone] Care Team Providers Care Shingle Bolt Cutter Name Role Phone Hilary Jimenez Primary Care Provider Unavailab Joe Hardy Jr [phone] REASON FOR VISIT abn findings in stool Encounters Encounter Location Date Provider Diagnosis [facility] Outpatient [address] [place] [id number] 03/07/2025 Joe Burnett Jr Plan Of Treatment Next Appt Details Provider Name:Joe estrada Jr, 05/24/2026 01:35:00 PM, [address] [facility], Suite [facility], [place], [address], Progress Notes * Zehra AGOSTO KDOB: (75 yo M)Acc No.[id number]:03/07/2025 EGD and COL/MAC Patient: Vance MCCLOUD Zehra Sheehan Provider: Symone Burnett MD :1950 A ge:74 Y S ex:Male Date:03/07/2025 Address:[address] [place] [phone] Pcp:Hilary Jimenez Subjective: * Chief Complaints: * [...] 0 03/07/2025 Generated for Ana cabrera/Linden/Nigel on: 08/20/2024 02:01 PM EST
--- OUTSIDE RECORDS SUMMARY | 2025-04-04 06:10 | XMS_ITS ---
Author Organization [facility] Address [address] [facility] [address] [place] [address] Care Team Providers Care Insurance Sales Specialist Name Role Phone Hilary Jimenez Primary Care Provider Unavailab Joe Hardy Jr [phone] REASON FOR VISIT abnormal ct scan Encounters Encounter Location Date Provider Diagnosis [facility] [place] [address] [place] [id number] 04/04/2025 Joe Burnett Jr Plan Of Treatment Next Appt Details Provider Name:Joe estrada Jr, 05/24/2026 01:35:00 PM, [address] [facility], [address], [place], [address], Progress Notes * Zehra AGOSTO KDOB: (75 yo M)Acc No.[id number]:04/04/2025 EGD and COL/MAC Patient: Vance MCCLOUD Zehra Sheehan Provider: Symone Burnett MD :1950 A ge:75 Y S ex:Male Date:04/04/2025 Address:[address] [place] [phone] Pcp:Hilary Jimenez Subjective: * Chief Complaints: * [...] 0 04/04/2025 Generated for Ana cabrera/Linden/Nigel on: 08/20/2024 02:00 PM EST
--- OUTSIDE RECORDS SUMMARY | 2025-05-04 05:30 | XMS_ITS ---
Author Organization Darrian Ziegler III, MD Address [address] [place] [address] Care Team Providers Care Courtesy Car Driver Name Role Phone Tony PINK, [facility] Primary Care Provider Dr. Darrian Smith [...] Date Provider Diagnosis Darrian Ziegler III, MD [address] [place] [address] [place] [address] 05/04/2025 Darrian Ziegler HTN (hypertension) I 10 [...] the liver has been done by his enterprise resource planning consultant, Dr. Burnett. It showed thickening of the [...] Provider Name:Darrian Ziegler , 06/21/2025 03:30:00 PM, [address] [place] [address] [address], [place], [phone], Provider Name:Darrian Ziegler , 12/11/2025 02:00:00 PM, [address] [place] [address] [address], [place], [phone], Progress Notes * Zehra AGOSTO KDOB: (75 yo M)Acc No.[id number]:05/04/2025 Progress Notes Patient: Zehra GALICIA Provider: Yahaira Zieglre MD :1950 A ge:75 Y S ex:Male Date:05/04/2025 Phone: Address:[address] [place], [place] [address], [phone] Pcp:Hilary Jimenez MD Subjective: * Chief Complaints: [...] next week with Dr. Darrian Rowe at [facility]. On examination today, he still has [...] June 2025 to spend the winter in [facility] He says he will returrn in November [...] born in [place] and now lives in [place], [place]. He is and has several children. [...] the liver has been done by his enterprise resource planning consultant, Dr. Burnett. It showed thickening of the [...] 0 05/04/2025 Generated for Ana cabrera/Linden/Reneeitting on: 08/20/2024 02:01 [...]
--- OUTSIDE RECORDS SUMMARY | 2025-05-05 03:10 | XMS_ITS ---
Author Organization [facility] Address [address] [facility] [address] [place] [address] Care Team Providers Care Screen Printing Supervisor Name Role Phone Hilary Jimenez Primary Care Provider Unavailab Joe Hardy Jr REASON FOR VISIT abnormal ct scan Encounters Encounter Location Date Provider Diagnosis [facility] [place] [address] [place] [phone] 05/05/2025 Joe Burnett Jr Plan Of Treatment Next Appt Details Provider Name:Joe etsrada Jr, 05/24/2026 01:35:00 PM, [address] [facility], [address], [place], [address], Progress Notes * Zehra AGOSTO KDOB: (75 yo M)Acc No.[id number]:05/05/2025 EGD and COL/MAC Patient: Vance MCCLOUD Zehra Sheehan Provider: Symone Burnett MD :1950 A ge:75 Y S ex:Male Date:05/05/2025 Address:[address] [place] [address] Pcp:Hilary Jimenez Subjective: * Chief Complaints: * [...] * Provider: Symone Burnett MD Date: 0 05/05/2025 Generated for Ana cabrera/Linden/Nigel on: 08/20/2024 02:00 PM EST
--- OUTSIDE RECORDS SUMMARY | 2025-05-12 06:40 | XMS_ITS ---
Author Organization [facility] Address [address] [place] [address] Care Team Providers Care Associate Brand Manager Name Role Phone Hilary Jimenez Primary Care Provider Unavailab Joe Hardy Jr REASON FOR VISIT abnormal ct scan Medications [...] Active Encounters Encounter Location Date Provider Diagnosis [facility] Outpatient [address] [place], [place] [phone] 05/12/2025 Joe Burnett Jr Plan Of Treatment Next Appt Details Provider Name:Joe estrada Jr, 05/24/2026 01:35:00 PM, [address], [address], [place], [address], Progress Notes * Zehra AGOSTO KDOB: (75 yo M)Acc No.[id number]:05/12/2025 EGD and COL/MAC Patient: Zehra GALICIA Provider: Symone Burnett MD :1950 A ge:75 Y S ex:Male Date:05/12/2025 Address:[address] [place], [place] [phone] Pcp:Hilary Jimenez Subjective: * Chief Complaints: * [...] MD Date: Generated for Ana cabrera/Linden/Reneeitting on: 08/20/2024 02:01 PM EST
--- OUTSIDE RECORDS SUMMARY | 2025-06-05 08:29 | XMS_ITS ---
Author Organization Darrian Ziegler III, MD Address [address] [place] [address] [place] [address] Care Team Providers Care Rn Referral Name Role Phone Tony PIKN, [facility] Primary Care Provider Dr. Darrian Smith III Unavailable REASON FOR VISIT AFP Lab/referral to [facility] [place] Encounters Encounter Location Date Provider Diagnosis Darrian Ziegler III, MD [address] [place] [address] [place] [address] 06/05/2025 Darrian Ziegler Cirrhosis of liver without ascites, unspecified hepatic cirrhosis type K74.60 Assessments Encounter Date Diagnosis (ICD Code) Assessment Notes Treat ment Notes Treatment Clinical Notes 06/05/2025 Cirrhosis of liver without ascites, unspecified hepatic cirrhosis type (ICD-10 - K74.60) Plan Of Treatment Pending Test Test Name Order Date ALPHA-FETOPROTEIN,TUMOR MARKER Next Appt Details Provider Name:Darrian Ziegler , 06/21/2025 03:30:00 PM, [address] [place] [address] [place], [address], Provider Name:Darrian Ziegler , 12/11/2025 02:00:00 PM, [address] [place] [address] [place], [address], Progress Notes * Zehra AGOSTO KDOB: (75 yo M)Acc No.[id number]:06/05/2025 Patient: Vance MCCLOUD Zehra Sissy :1950 A ge:75 Y S ex:Male Phone: Address: [address], [place], [address] Subjective: * Chief Complaints: * A FP Lab/referral to [facility] gastro * Medical History: * Surgical History: * Hospitalization/Major Diagno stic Procedure: * Medications: Objective: * Vitals: * Physical Examination: Assessment: * Assessment: 1. C irrhosis of liver without ascites, unspecified hepatic cirrhosis type - K74.60 ? Plan: * Treatment: * Procedure Codes: * true * Date: Generated for Ana cabrera/Linden/eTransmitting on: 08/20/2024 02:01 PM EST
--- OUTSIDE RECORDS SUMMARY | 2025-06-13 09:15 | XMS_ITS ---
Author Organization Darrian Ziegler III, MD Address [address] [place] [address] Care Team Providers Care Port Drier Name Role Phone Tony PINK, [facility] Primary Care Provider Dr. Darrian [...] Problem Status W/U Status Risk Notes Problem [id number] Elevated alpha-fetop rotein (R77.2) Active confirmed The radiologist read the recent MRI of the liver as showing a probableHCC. The elevated ferritin is probably from the liver disease itself. The diameter of the mass has doubled recently. He is being referred to [facility] gastroenterology for definitive diagnosis and treatment. Vital Signs Temperature 97.5 degrees Fahrenheit 06/13/20 25 Blood pressure systolic 132 mm Hg 06/13/20 25 Blood pressure diastolic 74 mm Hg 025 Heart Rate 93 /min 06/13/2025 Height 61 in 06/13/2025 Weight 131 lbs 06/13/2025 BMI 24.75 kg/m2 06/13/2025 Encounters Encounter Location Date Provider Diagnosis Darrian Ziegler III, MD [address] [place] [address] [place] [address] 06/13/2025 Darrian Ziegler HTN (hypertension) I 10 [...] doubled recently. He is being referred to [facility] gastroenterology for definitive diagnosis and treatment. [...] the liver has been done by his wall covering installer, Dr. Burnett. It showed thickening of [...] Provider Name:Darrian Ziegler , 06/21/2025 03:30:00 PM, [address] [place] [address] [address], [place], [address], Provider Name:Darrian Ziegler , 12/11/2025 02:00:00 PM, [address] [place] [address] [address], [place], [phone], Progress Notes * Zehra AGOSTO KDOB: (75 yo M)Acc No.[id number]:06/13/2025 Progress Notes Patient: Vance MCCLOUD Zehra Sissy Provider: Yahaira Zielger MD :1950 A ge:75 Y S ex:Male Date:06/13/2025 Phone: Address: [address], [place], [phone] Pcp:Hilary Jimenez MD Subjective: * Chief Complaints: * R ising alpha-fetoproteinEnlarging liver mass section VIIIPossible hepatocellular carcinomaCirrhosis of the liver * HPI: C OVID-19 Screening: He returns to discuss the results of his MRI and recent blood work. His alpha-fetoprotein which began at 4.9 is now 10.6. The mass in section 8 of the liver has increased from 1.1-2.2 cm. He is being referred to [facility] gastroenterology for definitive diagnosis and treatment [...] born in [place] and now lives in [place], [place]. He is and has several children. [...] reconciled with the patient * Allergies: M otrinAspirinno[Allergies Verified] Objective: * Vitals: H t: 61, [...] 582 H (Ref Range: 20-250 ng/mL) * Lab:[facility] Cate l Fast * [...] Date & Time - 06/06/2025 02:13 PM)?ValueReference Range?[id number] - mmol/L?Blood Urea Ucolziqi58E4-82 - mg/dL?Creatinine1.300.5-1.4 - mg/dL?Glucose Fqrkdx824M26-016 - mg/dL?Calcium9.38.4-10.2 - mg/dL ?Potassium4.03.3-5.1 - mmol/L?Lchqsdwi810K01-876 - mmol/L ?Carbon Veighzd16F51-67 - mmol/L?Anion Jco2D61-00 - ?Estimated Glomerular Filt Rate54- * Examination: [...] doubled recently. He is being referred to [facility] gastroenterology for definitive diagnosis and treatment. [...] the liver has been done by his wall covering installer, Dr. Burnett. It showed thickening of [...] Ziegler MD Date: 08/13/2024 Generated for Ana cabrera/Linden/eTransmitting on: 08/20/2024 02:00 PM EST History and [...]
--- NOTE | ~2025-06-20 | XR_ITS ---
EXAMINATION: XR CHEST CLINICAL INFORMATION: fever COMPARISON: Chest radiograph on June 14, 2025. Chest CT on May 05, 2025 TECHNIQUE: 2 views of the chest were obtained. FINDINGS: Lungs: Vague faint opacity in the right lung base on the frontal view. Left lung appears clear. Pleura: No pleural effusion or pneumothorax. Heart/Mediastinum: Cardiomediastinal silhouette is within normal limits. Bones: No acute findings. XR/XR chest 2V IMPRESSION: Possible early developing airspace disease in the right lower lung. Electronically signed by: Peter Coffman MD 06/21/2025 08:33 AM [facility]
--- NOTE | ~2025-06-20 | CT_ITS ---
CLINICAL HISTORY: Unable to insert PICC line,? DVT CT right upper extremityvenogram with contrast Comparison: None provided Findings: Right upper extremity venogram was performed. There is a tiny peripheral thrombus in the mid cephalic vein measuring nearly 1 mm in diameter and 2 mm in length, axial image 774 series 6. The lumen of this vein is widely patent. Also patent remainder of the venous system of the right upper extremity. No acute skeletal abnormality. There are no soft tissue masses or collections. There are no radiopaque foreign bodies. IMPRESSION: Tiny thrombus in the mid cephalic vein as noted. This document has been electronically signed by: Rubio Moreau MD on 06/20/2025 19:07:35
--- NOTE | ~2025-06-20 | IR_ITS ---
EXAMINATION: XR FLUOROSCOPY CLINICAL INFORMATION: Midline nonfunctioning, need replacement, attempted midline replacement. COMPARISON: None available. TECHNIQUE: Fluoroscopy provided for emergency physician Dr. Missy Blake. No images obtained. FINDINGS: No images obtained. FLUOROSCOPY TIME: 7.4 minutes DOSE AREA PRODUCT: 7.101 uGy-m2 (microgray-meter squared) IR/IR fluoroscopy <1hr IMPRESSION: No images obtained. Please for to the procedure Electronically signed by: Farhad Johnson MD 06/23/2025 07:54 AM [facility]
[2025-06-20 11:24] VITALS: BP 150/65; PULSE 74; RESP 18; TEMP 36.3; O2SAT 100; BMI 23.5
--- NOTE | 2025-06-20 11:25 | ED.GENADULT ---
HPI - General Adult General Chief complaint: General Medical Stated complaint: IV not working? Time Seen by Provider: 06/20/25 13:14 Source: patient, family and old records reviewed Mode of arrival: ambulatory Limitations: no limitations History of Present Illness ED Provider: DR. Blake HPI narrative: 75-year-old male with PMHx HTN, HLD, bladder cancer s/p cystectomy and ileal loop urostomy, DM, history of recurrent UTI and bacteremia was discharged from the hospital yesterday with PICC line to receive IV gentamicin, in the last admission patient grew E coli in the UA that is only sensitive to gentamicin. Patient was due for his dose of antibiotic but the visiting nurse realize that the PICC line is not functioning and send him back to the hospital. Patient otherwise feels okay no fever, no chills, patient is traveling to [facility] on Thursday pain Related Data Home Medications ?Medication ?Instructions ?Recorded ?Confirmed blood sugar diagnostic (FreeStyle #10 ea 04/18/21 01/05/24 Lite Strips) montelukast 10 mg tablet 10 mg PO DAILY 04/18/21 06/21/25 lancets 28 gauge (FreeStyle #100 ea 06/24/21 01/05/24 Lancets) folic acid 1 mg tablet 1 mg PO DAILY 12/10/21 06/21/25 albuterol sulfate 90 mcg/actuation 1 puff PO QID PRN Shortness Of 02/08/22 06/21/25 aerosol inhaler Breath atorvastatin 20 mg tablet 20 mg PO BEDTIME 03/01/25 06/21/25 telmisartan 20 mg tablet 20 mg PO DAILY 03/01/25 06/21/25 bisacodyl 5 mg tablet,delayed 5 mg PO DAILY constipation 03/21/25 06/21/25 release (Dulcolax (bisacodyl)) ascorbic acid (vitamin C) 1,000 mg 1,000 mg PO DAILY 05/10/25 06/21/25 tablet (Vitamin C) Previous Rx's ?Medication ?Instructions ?Recorded urinary bag 10 (Assura Urostomy #10 ea 04/28/25 Pouch) Ceraplus New Image 96933 #30 ea 05/18/25 Ceraplus New Image [id number] #30 ea 05/18/25 Urostomy [place] 71637 #30 ea 05/18/25 adhesive tape 1 X 10 yard #120 ea 05/30/25 gauze bandage 4 X 4 #1,200 ea 05/30/25 ostomy supplies (MicroHesive Stoma #60 grams 05/30/25 Paste) gentamicin 120 mg/100 mL in sodium 260 mg (216.6667 mL) IV Q36H 06/19/25 chloride(iso) intravenous piggyback codeine 7.5 mg-guaifenesin 225 5 ml PO Q6H PRN cough 5 days #473 06/21/25 mg/5 mL oral liquid mL oseltamivir 75 mg capsule (Tamiflu) 75 mg PO BID 5 days #10 caps 06/21/25 Allergies Allergy/AdvReac Type Severity Reaction Status Date / Time aspirin Allergy Unknown Verified 06/20/25 11:31 Beta-Blockers AdvReac Unknown Verified 06/20/25 11:31 (Beta-Adrenergic Bloc ibuprofen AdvReac Unknown Verified 06/20/25 11:31 Review of Systems Review of Systems: All other systems are reviewed and are negative Constitutional: Reports as per HPI and Reports no additional constitutional complaints Eyes: Reports as per HPI and Reports no additional eye complaints Reports system reviewed and no additional complaints, except as documented Cardiovascular: Reports as per HPI and Reports no additional cardiovascular complaints Respiratory: Reports as per HPI and Reports no additional respiratory complaints Gastrointestinal: Reports as per HPI and Reports no additional gastrointestinal complaints Genitourinary: Reports no additional female genitourinary complaints Musculoskeletal: Reports no additional musculoskeletal complaints Skin/Breast: Reports system reviewed and no additional complaints, except as docu Psychiatric: Reports no additional psychiatric complaints Endocrine: Reports no additional endocrine complaints Hematologic/Lymphatic: Reports no additional hematologic/lymphatic complaints Allergic/Immunologic: Reports no additional allergic/immunologic complaints Reports system reviewed and no additional complaints, except as documented and Reports Abnormal speech present [facility] Past Medical History Medical History Aortic stenosis Complication of urostomy History of bladder cancer Abdominal distention Cirrhosis of liver HTN (hypertension) Acute hyponatremia Hydronephrosis Bladder cancer Asthma Diabetes Bladder cancer Incomplete emptying of bladder due to benign prostatic hyperplasia Complicated urinary tract infection Surgical History History of surgery History of ileal conduit Social History Social History Household Members: Spouse, Family and Children Housing: House Are you a primary family member caretaker to a significant other at home: No Do you presently have visiting nurse or other home services: Yes Alcohol intake: never Comment: bedside Patient Tobacco Use Status: Never used Tobacco Smoked in Last 30 Days: No Use of substances other than those prescribed or required for medical reasons: No Advance Directives: Yes Advance Directives Information Provided: Yes Advance Directives on File: No Advance Directives Date on File: 03/12/25 Do you have a plan to hurt others: No Plan service: No Current occupational status: retired Physical Exam ED Vital Signs: Vital Signs - 24 hr 06/20/25 18:31 06/20/25 21:37 06/21/25 01:09 Temperature 98.1 F 99.6 F Pulse Rate 86 96 89 Respiratory Rate 16 20 22 H Blood Pressure 151/76 H 153/71 H Pulse Oximetry 100 100 Oxygen Delivery Method Room Air Room Air 06/21/25 01:13 06/21/25 05:36 06/21/25 06:34 Temperature 99.5 F 100.1 F 101.1 F H Pulse Rate 89 89 Respiratory Rate 20 14 Blood Pressure 135/53 L 147/60 H Pulse Oximetry 100 97 Oxygen Delivery Method Room Air Room Air 06/21/25 06:55 06/21/25 08:42 06/21/25 08:42 Temperature 102.7 F H 100.8 F H 100.8 F H Pulse Rate 81 Respiratory Rate 16 Blood Pressure 132/55 L Pulse Oximetry 98 Oxygen Delivery Method Room Air BMI result Body Mass Index 23.5 Vital signs have been reviewed and appear to be correct. Blood pressure elevated. Heart rate normal. Respiratory rate normal. Temperature normal. Oxygen saturation normal. Appearance: Alert. Oriented X3. No acute distress. Head: Normal external exam. Normocephalic. Atraumatic. No Walsh signs noted. No raccoon eyes noted Eyes: PERRLA. EOMI. Conjunctiva and sclera normal. Eyelids normal. ENT: TM's Normal. Pharynx normal. Uvula midline. Moist mucous membranes. No trismus noted. No drooling noted. No muffled voice noted. Neck: Normal inspection. Neck supple. FROM. No adenopathy. Thyroid Normal. No meningeal signs. No neck mass noted. CVS: Normal heart rate and rhythm. Heart sound normal. No murmurs noted. Pulses normal throughout. Respiratory: No respiratory distress. Painless inspiration. Breath sounds normal. No wheezes/rales/rhonchi noted. Chest nontender. No accessory muscle usage noted or decreased air movement noted. Abdomen: Soft and nontender. Bowel sounds normal in all 4 quadrants. No distention noted. No organomegaly noted. No visible injury noted. Back: No CVA tenderness. Full range of motion noted. Skin: Skin warm and dry. Normal skin color. Normal skin turgor. No rashes/lesions/lacerations noted. Extremities: No lower extremity edema. Extremities exhibit normal range of motion. Extremities nontender. Neuro: Oriented X 3. Cranial nerve exam: II-XII are grossly intact No motor deficit. No sensory deficit. Reflexes normal. Course Course Course Narrative: This is a rapid medical exam performed by Malena Rice NP: Additional HPI, ROS, PE not included below will be deferred to primary provider. Patient is a 75y/o M just discharged with a midline to receive IV gentamycin for sepsis/E. coli. Visiting nurse came this am and midline would not flush or draw back. Unable to flush/draw back in triage either. Abx were due at 8am today. Reevaluation(s) Reevaluation #1: 75-year-old male return for malfunctioning PICC line for for administration of IV clindamycin at home, patient received 1 dose of clindamycin in the ED via peripheral IV, IR discontinued the PICC line recommended rule out DVT, CT angio of the right upper extremity is revealing small tiny thrombus in the right cephalic vein was otherwise patent venous system, finding was discussed with Dr. Aquino who recommended heating pads and warm compression and only NSAIDs. The case discussed with Dr. Silva, since patient not meeting criteria for hospitalization admission was declined and recommended to keep in the ED and tomorrow will have another IR attempt to place a different PICC line. Will start physician observation. Midline order is in place. Time: 20:13 Reevaluation #2: 12:00 PM 06/21/2025 (Dr. Juve Negrete): Patient is signed out to me pending midline placement for antibiotics however he is only receiving another dose of antibiotics next doses a 03:00 in the morning, after that patient is going to [facility], he spiked a fever while in the ER, his workup has been reassuring included chest x-ray and blood work but swab came back positive for flu A, I will start him on Tamiflu Medications Administered Generic Name Dose Route Start Last Admin Trade Name Freq PRN Reason Stop Dose Admin Guaifenesin/Codeine Phosphate 5 ml 06/21/25 00:47 06/21/25 01:02 Guaifen/Codeine Sf 200/20/10ml 10 Ml Liquid PO 5 ml Q4H PRN Administration Cough Gentamicin Sulfate 260 mg/ 106.5 mls @ 100 mls/hr 06/20/25 15:00 06/20/25 19:28 Sodium Chloride IV Infused Q36H STEVEN Infusion Discontinued Medications Generic Name Dose Route Start Last Admin Trade Name Freq PRN Reason Stop Dose Admin Acetaminophen 650 mg 06/21/25 06:39 06/21/25 07:11 Acetaminophen 325 Mg Tablet PO 06/21/25 06:40 650 mg ONCE ONE Administration Albuterol Sulfate 2.5 mg/ 0 mg 06/21/25 01:07 06/21/25 01:09 Albuterol/Ipratropium 3 ml INHALE 06/21/25 01:08 5 dose ONCE ONE Administration Guaifenesin 5 ml 06/20/25 21:13 06/20/25 21:25 Guaifenesin 100 Mg/5 Ml 5 Ml Liquid PO 06/20/25 21:14 5 ml ONCE ONE Administration Iohexol 100 ml 06/20/25 18:13 06/20/25 18:13 Iohexol 350 Mg/Ml 100 Ml Infus..Btl IV 06/20/25 18:14 80 ml ONCE ONE Administration Medical Decision Making Medical Decision Making MDM Narrative: 8:22 AM 06/21/2025 (Dr. Juve Negrete): Signed out to me, spiked a fever currently receiving gentamicin for UTI next dose in the evening, midline to be established by IR repeat blood work without leukocytosis or lactic elevation Differential Diagnosis Differential Diagnoses: The differential diagnosis associated with the presentation includes (DVT of right upper extremity, need for different PICC line.) Admission/Observation Consideration of admission/observation: Escalation of care including admission/observation considered Consult Healthcare Provider Management of the patient was discussed with: Hospitalist (Dr. Silva) and [employer] Specialist (Dr. Aquino) Lab Data MDM Lab Attestation statement: I reviewed the patient's lab results. 06/21/25 06:53 06/21/25 06:53 Labs: Lab Results 06/20/25 06/20/25 06/21/25 Range/Units 14:59 22:30 06:53 WBC 7.1 (4.8-10.8) X10*3/uL RBC 2.64 L (4.60-5.80) X10*6/uL Hgb 8.4 L (14.0-18.0) g/dl Hct 25.4 L (42.0-52.0) % MCV 96.2 (80.0-98.0) fL MCH 31.8 (27.0-33.0) pg MCHC 33.1 (31.0-36.0) g/dl RDW 15.4 (11.0-16.0) % Plt Count 192 D (160-400) X10*3/uL MPV 10.3 (9.4-12.4) fL Immature Gran % (Auto) 0.8 H (0.0-0.4) % Neut % (Auto) 64.6 (45-73) % Lymph % (Auto) 18.4 L (20-40) % [place] % (Auto) 6.4 (2-11) % Eos % (Auto) 9.1 H (0-4) % Baso % (Auto) 0.7 (0-2) % Lymph # (Auto) 1.3 (1.2-4.9) X10*3/uL [place] # (Auto) 0.5 (0.1-1.2) X10*3/uL Eos # (Auto) 0.6 H (0.0-0.4) X10*3/uL Baso # (Auto) 0.1 (0.0-0.2) X10*3/uL Abs Immat Gran (auto) 0.06 H (0.00-0.03) X10*3/uL Absolute Neuts (auto) 4.6 (2.0-8.3) x10*3/uL Absolute Nucleated RBC 0.000 (0.0-0.012) X10*3/uL Nucleated RBC % (auto) 0.0 (0.0-0.2) /100WBC Smear Tech's Comments VERIFIED Sodium 131 L (135-145) mmol/L Potassium 4.4 (3.3-5.1) mmol/L Chloride 106 (96-108) mmol/L Carbon Dioxide 19 L (22-29) mmol/L Anion Gap 10 L (12-20) BUN 11 (9-16) mg/dL Creatinine 1.15 1.18 (0.5-1.4) mg/dL Estim Creat Clear Calc 41.5 Estimated GFR > 60 Random Glucose (60-115) mg/dL Lactic Acid (0.5-2.0) mmol/L Calcium (8.4-10.2) mg/dL Total Bilirubin (0.0-1.0) mg/dL AST (5-37) U/L ALT (0-40) U/L Alkaline Phosphatase (39-117) U/L Total Protein (6.5-8.0) g/dL Albumin (3.5-5.0) g/dL Random Gentamicin 9.2 mg/L Influenza Type A (PCR) (Negative) Influenza Type B (PCR) (Negative) RSV RNA Qual (PCR) (Negative) SARS-CoV-2 RNA (RT-PCR) (Negative) 06/21/25 06/21/25 06/21/25 Range/Units 06:53 06:53 06:53 WBC (4.8-10.8) X10*3/uL RBC (4.60-5.80) X10*6/uL Hgb (14.0-18.0) g/dl Hct (42.0-52.0) % MCV (80.0-98.0) fL MCH (27.0-33.0) pg MCHC (31.0-36.0) g/dl RDW (11.0-16.0) % Plt Count (160-400) X10*3/uL MPV (9.4-12.4) fL Immature Gran % (Auto) (0.0-0.4) % Neut % (Auto) (45-73) % Lymph % (Auto) (20-40) % [place] % (Auto) (2-11) % Eos % (Auto) (0-4) % Baso % (Auto) (0-2) % Lymph # (Auto) (1.2-4.9) X10*3/uL [place] # (Auto) (0.1-1.2) X10*3/uL Eos # (Auto) (0.0-0.4) X10*3/uL Baso # (Auto) (0.0-0.2) X10*3/uL Abs Immat Gran (auto) (0.00-0.03) X10*3/uL Absolute Neuts (auto) (2.0-8.3) x10*3/uL Absolute Nucleated RBC (0.0-0.012) X10*3/uL Nucleated RBC % (auto) (0.0-0.2) /100WBC Smear Tech's Comments Sodium (135-145) mmol/L Potassium (3.3-5.1) mmol/L Chloride (96-108) mmol/L Carbon Dioxide (22-29) mmol/L Anion Gap (12-20) BUN (9-16) mg/dL Creatinine 1.21 (0.5-1.4) mg/dL Estim Creat Clear Calc 40.4 39.4 Estimated GFR 60 58 Random Glucose 96 (60-115) mg/dL Lactic Acid 1.4 (0.5-2.0) mmol/L Calcium 8.1 L (8.4-10.2) mg/dL Total Bilirubin 0.6 (0.0-1.0) mg/dL AST 107 H (5-37) U/L ALT 51 H (0-40) U/L Alkaline Phosphatase 555 H (39-117) U/L Total Protein 6.7 (6.5-8.0) g/dL Albumin 3.0 L (3.5-5.0) g/dL Random Gentamicin mg/L Influenza Type A (PCR) POSITIVE A (Negative) Influenza Type B (PCR) NEGATIVE (Negative) RSV RNA Qual (PCR) NEGATIVE (Negative) SARS-CoV-2 RNA (RT-PCR) NEGATIVE (Negative) Independent Interpretation I performed an independent interpretation of an: CT Scan (Right upper extremity CTA:Right upper extremity venogram was performed. There is a tiny peripheral thrombus in the mid cephalic vein measuring nearly 1 mm in diameter and 2 mm in length, ) Radiology Impression Discussion of test interpretation with radiology: I have reviewed the radiologist's reading. Discharge Plan Discharge Clinical Impression: Occluded PICC line, Influenza A Patient Disposition: Home, Self-Care Additional Instructions: You tested positive for influenza A, I am starting you on Tamiflu which is on antiviral medication, come back tomorrow morning for your last dose of antibiotics for ongoing UTI I am also prescribing guaifenesin with codeine, codeine this is something they can make you slightly sleepy so be mindful not to use more than I am prescribing and use before bedtime Tamiflu you take twice a day for the next 5 days, please wear a mask so you do not spread the flu Prescriptions: New oseltamivir [Tamiflu] 75 mg capsule 75 mg PO BID 5 Days Qty: 10 0RF codeine-guaifenesin 7.5-225 mg/5 mL liquid 5 ml PO Q6H PRN (Reason: cough) 5 Days Qty: 473 0RF No Action (DME) Assura Urostomy Pouch 10 misc See Rx Instructions .Route Qty: 10 4RF Rx Instructions: Item number [id number] (DME) Ceraplus New Image [id number] 44mm precut concave wafer See Rx Instructions .Route .MEDSUPPLY Qty: 30 12RF Rx Instructions: As directed (DME) Ceraplus New Image [id number] 44mm precut 32mm wafer See Rx Instructions .Route .MEDSUPPLY Qty: 30 12RF Rx Instructions: As directed (DME) Urostomy [place] 62436 44mm bag See Rx Instructions .Route .MEDSUPPLY Qty: 30 12RF Rx Instructions: As directed change every 3 days. (DME) gauze bandage 4 X 4 bandage See Rx Instructions .Route Qty: 1200 4RF Rx Instructions: As directed for urostomy. (DME) MicroHesive Stoma Paste Paste See Rx Instructions .Route Qty: 60 5RF Rx Instructions: Securi-T stoma paste. (DME) adhesive tape 1 X 10 -yard tape See Rx Instructions .Route Qty: 120 3RF Rx Instructions: As directed albuterol sulfate 90 mcg/actuation HFA aerosol inhaler 1 puff PO QID PRN (Reason: Shortness Of Breath) bisacodyl [Dulcolax (bisacodyl)] 5 mg tablet,delayed release (DR/EC) 5 mg PO DAILY gentamicin in NaCl (iso-osm) 120 mg/100 mL piggyback 260 mg IV Q36H Rx Instructions: next dose is Jun 20 at 8 am ascorbic acid (vitamin C) [Vitamin C] 1,000 mg Tablet 1,000 mg PO DAILY atorvastatin 20 mg tablet 20 mg PO BEDTIME telmisartan 20 mg tablet 20 mg PO DAILY montelukast 10 mg tablet 10 mg PO DAILY (DME) FreeStyle Lite Strips Strip See Rx Instructions Not Applicable DAILY Qty: 10 Rx Instructions: As directed (DME) lancets [FreeStyle Lancets] 28 gauge misc See Rx Instructions topical BID Qty: 100 Rx Instructions: As directed folic acid 1 mg tablet 1 mg PO DAILY Print Language: Persian
--- OUTSIDE RECORDS SUMMARY | 2025-06-20 14:01 | XMS_ITS | Patient Health Record ---
Author Organization Darrian Ziegler III, MD Address [address] [place] [address] [place] [address] Care Team Providers Care Outdoor Pursuits Instructor Name Role Phone Tony PINK, [facility] Primary Care Provider Dr. Darrian Smith III Unavailable [phone] Allergies Allergen (clinical drug ingredient) Drug/Non Drug Allergy documented on EMR Reaction Allergy Type Onset Date Status aspirin Aspirin Unknown Drug Allergy Active Motrin Unknown Drug Allergy Active Results Component Value Reference Range Notes Complete Blood Count Auto Di ff Reviewed date:01/27/2025 01:46:19 PM Interpretation: Performing Lab:[facility], [address] [place] [phone] Notes/Report: White Blood Count 7.4 4.8-10.8 X10*3/uL [...] Auto 0.000 0.0-0.012 X10*3/uL CORRECTED REPORT Comprehensive [place]. Panel Fa st Reviewed date:01/27/2025 01:46:19 PM Interpretation: Performing Lab:[facility], [address] [place] [phone] Notes/Report: Sodium 138 135-145 mmol/L Potassium 4.2 [...] Panel Reviewed date:01/27/2025 01:46:19 PM Interpretation: Performing Lab:[facility], [address] [place] [phone] Notes/Report: Triglycerides 95 <150 mg/dL Desirable Triglyceride: [...] Antigen Reviewed date:01/27/2025 01:46:19 PM Interpretation: Performing Lab:[facility], [address] [place] [phone] Notes/Report: Prostate Specific Antigen < 0.10 <0.05-4.0 ng/mL PSA methodology: Rodriguez Alinity i Chemiluminescent Microparticle Immunoassay (CMIA) SLIDE REVIEW Reviewed date:01/27/2025 01:46:19 PM Interpretation: Performing Lab:[facility], [address] [place] [phone] Notes/Report: SLIDE REVIEW VERIFIED Complete Blood Count Auto Di ff Reviewed date:01/27/2025 01:46:19 PM Interpretation: Performing Lab:[facility], [address] [place] [phone] Notes/Report: White Blood Count 7.4 4.8-10.8 X10*3/uL [...] ff Reviewed date:04/17/2025 09:18:18 AM Interpretation: Performing Lab:[facility], [address] [place] [phone] Notes/Report: White Blood Count 5.9 4.8-10.8 X10*3/uL [...] NRBC Abs Auto 0.000 0.0-0.012 X10*3/uL Comprehensive [place]. Panel Fa st Reviewed date:04/17/2025 09:18:18 AM Interpretation: Performing Lab:[facility], [address] [place] [phone] Notes/Report: Sodium 137 135-145 mmol/L Potassium 4.5 [...] Ferritin Reviewed date:04/17/2025 09:18:18 AM Interpretation: Performing Lab:[facility], [address] [place] [phone] Notes/Report: Ferritin 911 20-250 ng/mL Lipid Panel Reviewed date:04/17/2025 09:18:18 AM Interpretation: Performing Lab:[facility], [address] [place] [phone] Notes/Report: Triglycerides 104 <150 mg/dL Desirable Triglyceride: [...] Antigen Reviewed date:04/17/2025 09:18:18 AM Interpretation: Performing Lab:[address] [phone] Notes/Report: Prostate Specific Antigen < 0.10 <0.05-4.0 ng/mL PSA methodology: Rodriguez Alinity i Chemiluminescent Microparticle Immunoassay (CMIA) Folate Reviewed date:04/17/2025 09:18:18 AM Interpretation: Performing Lab:[address] [phone] Notes/Report: Folate 16.3 > or = 4.0 ng/mL Reference Values: > or = 4.0 ng/mL < 4.0 ng/mL suggests folate deficiency Methotrexate, aminopterin and folinic acid (leucovorin) are chemotherapeutic agents whose molecular structures are similar to folate; therefore, the Hot Braider folate assay cannot be used for patients using these drugs. Alpha Fetoprotein Reviewed date:06/04/2025 07:37:22 AM Interpretation: Performing Lab:[address] [address] Notes/Report: Alpha Fetoprotein 7.9 <6.1 ng/mL This test was performed using the Sylvie Snoh[place] chemiluminescent method. Values obtained from different assay methods cannot be used interchangeably. AFP levels, regardless of value, should not be interpreted as absolute evidence of the presence or absence of disease. THIS TEST WAS PERFORMED AT: [facility] [address] [place] [phone] TORSTEN GARG MD SCREENING COLONOSCOPY Reviewed date:06/05/2025 12:38:15 PM Interpretation:undefined Performing Lab: Notes/Report: undefined Basic Metabolic Panel Reviewed date:06/15/2025 03:00:39 PM Interpretation: Performing Lab:[address] [address] Notes/Report: Sodium 137 135-145 mmol/L Potassium 4.0 [...] mg/dL Calcium 9.3 8.4-10.2 mg/dL Alpha Fetoprotein Reviewed date:06/15/2025 03:00:39 PM Interpretation: Performing Lab:[address] [address] Notes/Report: Alpha Fetoprotein 10.6 <6.1 ng/mL This test was performed using the Sylvie Jeramy chemiluminescent method. Values obtained from different assay methods cannot be used interchangeably. AFP levels, regardless of value, should not be interpreted as absolute evidence of the presence or absence of disease. THIS TEST WAS PERFORMED AT: [facility] [address] [place] [phone] TORSTEN GARG MD Reason For Referral Reason cirrhosis of liver enlarging liver Increasing AFP Diagnosis 1 Cirrhosis of liver w ithout ascites, unspecified hepatic cirrhosis type (K74.60) Referral Organization Darrian Ziegler III, MD Referring Provider First Name Darrian Referring Provider Last Name Toney Referring Provider Speciality Internal M edicine Referred Provider [facility], Gastrolinda Bowling Referred Provider Specialty Gastroentero logy General Notes S Kaitlin CAREER DEVELOPMENT COUNSELOR 06/13 02:42:11 PM >ref/progress note/labs/faxed to [facility] gastroenterology I called spoke to Jacqueline wetzel [...] Status W/U Status Risk Notes Problem Asthma (495495760) Asthma (J45.909) Active confirmed He reports no difficulty with breathing since his last visit. He tolerated the hot weather of the summer without difficulty. Problem Anemia (452494790) Anemia (D64.9) Active confirmed His hemat ocrit is slightly lower, but he had a recent episode of bleeding which required hospitalization. His ferritin is rising. His iron supplementation has been stopped. This will be observed. Problem Diabetes mellitus (63576548) Diabetes mellitus (E11.9) Active confirmed Is A1c was quit e low and primary care has discontinued his ddiabetic medications. His current fasting glucose is 111. Problem 812826723 Mixed hyperlipidemia (E78.2) Active confirmed Is currently stable and no change in his treatment is needed. Problem Hypertension (69569410) HTN (hypertension) (I10) Active confirmed His blood pressure is currently stable and no change in his regimen is needed today. Problem Hypothyroid (63262140) Hypothyroid (E03.9) Active confirmed He remains euthyroid. No change in his medication was needed. Problem 908434624 Urothelial carcinoma (C68.9) Active confirmed There is no sig n of recurrent disease at this time. The ileostomy is functioning well.He was hospitalized recently for bleeding into the urostomy but this has resolved and no serious cause was found. Problem 4276103810980 Benign prostatic hyperplasia with lower urinary tract symptoms (N40.1) Active confirmed He rises from sleep once or twice a night to urinate depending upon fluid intake. We reviewed lifestyle modification she could make to reduce nocturia. 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 He has had no bleeding. The ostomy is functioning well. Problem 33316837 Cirrhosis of liver without ascites, unspecified hepatic cirrhosis type (K74.60) Active confirmed On the MRI of t he liver has been done by his gastroenterologis t, Dr. Burnett. It showed thickening of the renal pelvis which will be referred to urology. It also showed 2 enhancing masses in the liver 1 being 1.1 cm equivocal for hepatocellular carcinoma. This is being followed. An alpha-fetoprotein will be obtained.A repeat MRI has been scheduled. Problem 031212927 History of tuberculosis (Z86.11) Active confirmed Problem 502573916 Elevated alpha-fetoprote in (R77.2) Active confirmed The radiologist read the recent MRI of the liver as showing a probableHCC. The elevated ferritin is probably from the liver disease itself. The diameter of the mass has doubled recently. He is being referred to [facility] gastroenterology for definitive diagnosis and treatment. Vital Signs Heart Rate 93 /min 06/13/2025 Temperature 97.5 degrees Fahrenheit 06/13/2025 Blood pressure diastolic 74 mm Hg 06/13/2025 Height 61 in 06/13/2025 Blood pressure systolic 132 mm Hg 06/13/2025 Weight 131 lbs 06/13/2025 BMI 24.75 kg/m2 06/13/2025 Encounters Encounter Location Date Provider Diagnosis Darrian Ziegler III, MD [address] [place] [address] [place] [address] 01/31/2025 Darrian Ziegler Urothelial carcinoma C68.9 ; Cirrhosis of liver without ascites, unspecified hepatic cirrhosis type K74.60 ; HTN (hypertension) I10 ; Hypothyroid E03.9 ; Anemia, unspecified type D64.9 ; Benign prostatic hyperplasia with lower urinary tract symptoms N40.1 ; Ileostomy in place Z93.2 and Diabetes mellitus E11.9 Darrian Ziegler III, MD [address] [place] [address] [place] [address] 05/04/2025 Darrian Ziegler HTN (hypertension) I 10 ; Cirrhosis of liver without ascites, unspecified hepatic cirrhosis type K74.60 ; Asthma J45.909 ; Anemia D64.9 ; Diabetes mellitus E11.9 ; Hypothyroid E03.9 ; Urothelial carcinoma C68.9 ; Ileostomy in place Z93.2 and Benign prostatic hyperplasia with lower urinary tract symptoms N40.1 Darrian Ziegler III, MD [address] [place] [address] [place] [address] 06/13/2025 Darrian Ziegler HTN (hypertension) I 10 ; Elevated alpha-fetoprotein R77.2 ; Asthma J45.909 ; Diabetes mellitus E11.9 ; Ileostomy in place Z93.2 ; Cirrhosis of liver without ascites, unspecified hepatic cirrhosis type K74.60 ; Benign prostatic hyperplasia with lower urinary tract symptoms N40.1 ; Hypothyroid E03.9 and Urothelial carcinoma C68.9 Darrian Ziegler III, MD [address] [place] [address] [address] [facility] [address] 06/05/2025 Darrian Ziegler Cirrhosis of liver without [...] the liver has been done by his patient care, Dr. Burnett. It showed thickening of the [...] the liver has been done by his patient care, Dr. Burnett. It showed thickening of the renal pelvis which will be referred to urology. It also showed 2 enhancing masses in the liver 1 being 1.1 cm equivocal for hepatocellular carcinoma. This is being followed. An alpha-fetoprotein will be obtained.A repeat MRI has been scheduled. 06/13/2025 HTN (hypertension) (ICD-10 - I10) His blood pressure is currently stable and no change in his regimen is needed today. 06/13/2025 Elevated alpha-fetoprotein (ICD-10 - R77.2) The radiologist read the recent MRI of the liver as showing a probableHCC. The elevated ferritin is probably from the liver disease itself. The diameter of the mass has doubled recently. He is being referred to [facility] gastroenterology for definitive diagnosis and treatment. 06/05/2025 Cirrhosis of liver without ascites, unspecified hepatic cirrhosis type (ICD-10 - K74.60) 01/31/2025 HTN (hypertension) (ICD-10 - I10) His blood pressure is currently stable at 139/62 and no change in his regimen is needed today. 05/04/2025 Asthma (ICD-10 - J45.909) He reports no difficulty with breathing since his last visit. He tolerated the hot weather of the summer without difficulty. 06/13/2025 Asthma (ICD-10 - J45.909) He reports [...] has been stopped. This will be observed. 06/13/2025 Diabetes mellitus (ICD-10 - E11.9) Is A1c was quite low and primary care has discontinued his ddiabetic medications. His current fasting glucose is 111. 01/31/2025 Anemia, unspecified type (ICD-10 - D64.9) [...] bleeding. The ostomy is functioning well. 01/31/2025 Benign prostatic hyperplasia with lower urinary tract symptoms (ICD-10 - N40.1) He rises from sleep once or twice a night to urinate depending upon fluid intake. We reviewed lifestyle modification she could make to reduce nocturia. 05/04/2025 Hypothyroid (ICD-10 - E03.9) He remains euthyroid. No change in his medication was needed. 06/13/2025 Cirrhosis of liver without ascites, unspecified hepatic cirrhosis type (ICD-10 - K74.60) On the MRI of the liver has been done by his patient care, Dr. Burnett. It showed thickening of the renal pelvis which will be referred to urology. It also showed 2 enhancing masses in the liver 1 being 1.1 cm equivocal for hepatocellular carcinoma. This is being followed. An alpha-fetoprotein will be obtained.A repeat MRI has been scheduled. 01/31/[address] (ICD-10 - Z93.2) [...] resolved and no serious cause was found. 06/13/2025 Benign prostatic hyperplasia with lower urinary tract symptoms (ICD-10 - N40.1) He rises from sleep once or twice a night to urinate depending upon fluid intake. We reviewed lifestyle modification she could make to reduce nocturia. 01/31/2025 Diabetes mellitus (ICD-10 - E11.9) His diabetes has been well controlled. No change in his medications was necessary today. 05/04/[address] (ICD-10 - Z93.2) The urine in the bag appeared to be completely normal. He has had no bleeding. The ostomy is functioning well. 06/13/2025 Hypothyroid (ICD-10 - E03.9) He remains euthyroid. No change in his medication was needed. 05/04/2025 Benign prostatic hyperplasia with lower urinary tract symptoms (ICD-10 - N40.1) He rises from sleep once or twice a night to urinate depending upon fluid intake. We reviewed lifestyle modification she could make to reduce nocturia. 06/13/2025 Urothelial carcinoma (ICD-10 - C68.9) There is no sign of recurrent disease at this time. The ileostomy is functioning well.He was hospitalized recently for bleeding into the urostomy but this has resolved and no serious cause was found. Plan Of Treatment Pending Test Test Name [...] Provider Name:Darrian Ziegler , 06/21/2025 03:30:00 PM, [address] [facility] [address], [place], [address], Provider Name:Darrian Ziegler , 12/11/2025 02:00:00 PM, [address] [facility] [address], [place], [address], Insurance Providers Payer Name Payer Address Payer Phone Subscriber Number Group Number Insured Name Patient Relationship to Insured Coverage Start Date Coverage End Date [facility] [address] [place] [phone] [id number] Alexia Agosto Self - patient is the insured MEDICAID [place] [address] [facility] [place] [id number] [phone] [id number] Alexia Agosto Self - patient is the insured MEDICARE [place] [address] [place] [address] [id number] Alexia Agosto Self - patient is the [...]
--- OUTSIDE RECORDS SUMMARY | 2025-06-20 14:01 | XMS_ITS | Patient Health Record ---
Author Organization [facility] Address [address] [place] [address] Care Team Providers Care Senior Portfolio Manager Name Role Phone Hilary Boss Primary Care Provider Unavailab Jeo Hardy Jr Unavailable Allergies Allergen (clinical drug ingredient) Drug/Non Drug Allergy documented on EMR Reaction Allergy Type Onset Date Status ibuprofen Ibuprofen Unknown Drug Allergy Active aspirin Aspirin Unknown Drug Allergy Active Substance with beta adrenergic receptor antagonist mechanism of action (substance) beta blockers (uncoded) Unknown Allergy Active Results Component Value Reference Range Notes Glucose, Whole Blood Reviewed date:05/15/2025 01:35:07 PM Interpretation: Performing Lab:[facility], [address] [place] [phone] Notes/Report: Glucose, Whole Blood 119 60-115 mg/dL METER # : [id number] Pathology Reviewed date:05/16/2025 02:20:44 PM Interpretation: Performing Lab:[facility], [address] [place] [phone] Notes/Report: Reason For Referral Referring Provider First Name Hilary Referring Provider Last Name Tony Referring Provider Speciality Internal M edicine Referred Organization [facility] Referred Provider Joe Echavarria Jr Referred Address [address],[place], [place],[address], Referred Provider Specialty Gastroentero logy General Notes Brooklyn Barkley 2024 10:14:44 AM > REQUESTED HERACLIO REFEFFAL FROM DR BOSS'S OFFICE FOR VISIT WITH DR ECHAVARRIA ON 02-15-25Rubia Dawn 02/15/2025 11:39:50 AM >no referral required since patient is in the same [place] of care Referral Priority Routine Medications Medication [...] Risk Notes Problem Oesophageal varices without bleeding (99789397) Secondary esophageal varices without bleeding (I85.10) Active confirmed Problem Portal hypertension (45855201) Portal hypertension (K76.6) Active confirmed Problem Liver mass (832417689) Liver mass (R16.0) Active confirmed Problem Lesion of liver (250609012) Liver lesion (K76.9) Active confirmed Problem Abnormal findings diagnostic imaging of liver and biliary tract (714022788) Abnormal CT scan, liver (R93.2) Active confirmed Problem Cirrhosis - non-alcoholic (902841485) Cirrhosis of liver without ascites, unspecified hepatic cirrhosis type (K74.60) Active confirmed Vital Signs Temperature 97.7 degrees Fahrenheit 02/15/2025 Blood pressure diastolic 01 mm Hg 02/15/2025 Height 62 in 02/15/2025 Blood pressure systolic 001 mm Hg 02/15/2025 Weight 120 lbs 02/15/2025 BMI 21.95 kg/m2 02/15/2025 Encounters Encounter Location Date Provider Diagnosis [facility] Outpatient [address] [place] [address] [place] [id number] 05/12/2025 Joe Echavarria Jr [facility] [address] [place] [phone] 02/15/2025 Joe Echavarria Jr Abnormal findings in stool R19.5 [facility] [address] [place] [phone] 12/26/2024 Joe Echavarria Jr [facility] [address] [place] [phone] 02/28/2025 Joe Echavarria Jr [facility] [address] [place] [phone] 02/28/2025 Joe Echavarria Jr [facility] [address] [place] [phone] 03/30/2025 Joe Echavarria Jr [facility] [address] [place] [phone] 04/24/2025 Joe Echavarria Jr [facility] [address] [place] [phone] 05/04/2025 Joe Echavarria Jr [facility] [address] [place] [phone] 05/16/2025 Joe Echavarria Jr Assessments Encounter Date [...] estrada , 05/24/2026 01:35:00 PM, [address] [facility], [address], [place], [address], Insurance Providers Payer Name Payer Address Payer Phone Subscriber Number Group Number Insured Name Patient Relationship to Insured Coverage Start Date Coverage End Date [facility] [address] [place] [phone] [id number] Alexia Agosto Self - patient is the insured MEDICAID OF [facility] [address] [place] [id number] [phone] [id number] Alexia Agosto Self - patient is the insured Medical (General) History Medical History History ICD Code diabetes asthma Hypertension Bladder cancer Cirrhosis, likely secondary to fatty lonnie er, compensated Surgical History Surgery Date(Month/Year) bladder cancer Radical cystectomy, ileal conduit Hospitalization History Reason Date(Month/Year)
--- NOTE | 2025-06-20 14:04 | HE.PHANOTE ---
Re Gentamicin Pt was discharged yesterday, was last dosed 06/18/2025 and was changed to 260mg Q36H after first level resulted. Was going to be dosed this morning at 0800. Will continue this dose now and get another random at 2200 ~6 hours after dose should be given. Will check renal and assess tomorrow as well as follow up with lab to get level expedited at [facility]
[2025-06-20 15:25] LABS: Creatinine Clr Calc Pharmacy 41.5; Estimated Glomerular Filt Rate > 60
--- NOTE | 2025-06-20 16:14 | PC.NURSE ---
Patient in IR getting a picc line placed.
--- NOTE | 2025-06-20 16:38 | PM.EVENT ---
Documented by User: Christophe Solomon NP 06/20/25 18:16 Event Note Date of Service: 06/20/25 Event Note: Pt presented to IR with malfunctioning midline placed yesterday for antibx however only needed until end of this week as [place]. under fluoro, catheter found to be retrograde, salvaged access with meka wire technique. antegrade venography of the right arm performed showing occlusion of basilic outflow to the level of the axilla, vessel did not appear to be dissected nor was extravasation seen. line pulled. pt does have peripheral access established in left arm.Further access requests at ordering providers discretion and based on pt preference. recommendation of f/u u/s in right arm for potential DVT plus/minus CT if feels necessary based on clinical exam findings. communicated to ED provider. Time Spent With Patient Time: Total time managing care of this patient today ___60_ minutes. Documented by User: Kirk Ernst MD 06/26/25 20:47 Event Note Date of Service: 06/26/25
[2025-06-20] MEDS: iohexoL 350 MG/ML 100 ML INFUS..BTL IV (18:13)
[2025-06-20 18:31] VITALS: BP 151/76; PULSE 86; RESP 16; TEMP 36.7; O2SAT 100
[2025-06-20] MEDS: guaiFENesin 100 MG/5 ML 5 ML LIQUID PO (21:25)
[2025-06-20 21:37] VITALS: BP 153/71; PULSE 96; RESP 20; TEMP 37.6; O2SAT 100
--- NOTE | 2025-06-20 22:52 | PC.NURSE ---
MD at bedside at this time
--- NOTE | 2025-06-20 23:00 | PC.NURSE ---
coughing has subsided since patient received cough med
[2025-06-21] VITALS (8 sets, daily range): BP systolic 132–147; BP diastolic 53–60; PULSE 81–89; RESP 14–22; TEMP -17.7–39.3; O2SAT 95–100
[2025-06-21] MEDS: guaiFEN/Codeine SF 200/20/10ML 10 ML LIQUID 5 ML PO (01:02)
[2025-06-21] MEDS: Albuterol Sulfate 2.5 MG, Albuterol/Iprat 2.5/0.5MG 3 ML 3 ML INHALE (01:09)
[2025-06-21 07:16] LABS: Hematocrit 25.4 % (42.0-52.0); Hemoglobin 8.4 g/dl (14.0-18.0); Imm Gran Abs Auto 0.06 X10*3/uL (0.00-0.03); Imm Gran Pct Auto 0.8 % (0.0-0.4); Lymphocytes Absolute Auto 1.3 X10*3/uL (1.2-4.9); MANUAL DIFF FLAG SCAN; Mean Corpuscular HGB Conc 33.1 g/dl (31.0-36.0); Mean Corpuscular Hemoglobin 31.8 pg (27.0-33.0); Mean Corpuscular Volume 96.2 fL (80.0-98.0); NRBC Abs Auto 0.000 X10*3/uL (0.0-0.012); NRBC Pct Auto 0.0 /100WBC (0.0-0.2); Platelet Count 192 X10*3/uL (160-400); Red Blood Count 2.64 X10*6/uL (4.60-5.80); SCAN SMEAR FLAG 1; White Blood Count 7.1 X10*3/uL (4.8-10.8)
--- NOTE | 2025-06-21 07:19 | PC.NURSE ---
Care of Pt assumed at change of shift. Pt is resting quietly in bed. Tylenol given for fever; Pt take PO medication without complication. Assisted Pt with emptying ileostomy bag. Contents consisted of blood tinged clear liquid. Pt is A&Ox3 Skin is warm and dry Breaths and speech are unlabored. NAD noted at this time. Will recheck temp for decrease in fever.
[2025-06-21 07:21] LABS: Creatinine Clr Calc Pharmacy 40.4; Estimated Glomerular Filt Rate 60
[2025-06-21 07:23] LABS: Alanine Aminotransferase 51 U/L (0-40); Albumin Level 3.0 g/dL (3.5-5.0); Alkaline Phosphatase 555 U/L (39-117); Anion Gap 10 (12-20); Aspartate Amino Transferase 107 U/L (5-37); Blood Urea Nitrogen 11 mg/dL (9-16); Calcium 8.1 mg/dL (8.4-10.2); Carbon Dioxide 19 mmol/L (22-29); Chloride 106 mmol/L (96-108); Creatinine Clr Calc Pharmacy 39.4; Estimated Glomerular Filt Rate 58; Potassium 4.4 mmol/L (3.3-5.1); Sodium 131 mmol/L (135-145); Total Protein 6.7 g/dL (6.5-8.0)
[2025-06-21 07:59] LABS: Resp Syncy Virus RNA Qual PCR NEGATIVE (Negative); SARS COV2 PCR INHOUSE NEGATIVE (Negative)
--- NOTE | 2025-06-21 08:45 | PHA.MEDREC ---
Addendum entered by Maranda Adler RPh 06/21/25 09:19: MED REC REVIEWED BY [facility]. Original Note: Pharmacy Consult ? Medication Reconciliation Pharmacy has completed the medication reconciliation. Patient was just discharged 06/19/25. Patient states no changes from yesterday. Utilized discharge packet to confirm med list. Patient last had his medication yesterday afternoon.
--- NOTE | 2025-06-21 11:42 | PC.NURSE ---
states that patient is going to come back in the am for his last infusion after refusing midline
== END 2025-06-21 14:02 | disposition home or self-care (01) ==
PROVIDERS: Emergency Medicine; Emergency Provider Emergency Medicine; PCP Internal Medicine
DX: T82.898A Other specified complication of vascular prosthetic devices, implants and grafts, initial encounter (principal); Y82.8 Other medical devices associated with adverse incidents; Y92.9 Unspecified place or not applicable; J10.1 Influenza due to other identified influenza virus with other respiratory manifestations; N39.0 Urinary tract infection, site not specified; B96.20 Unspecified Escherichia coli [E. coli] as the cause of diseases classified elsewhere; I10 Essential (primary) hypertension; E11.9 Type 2 diabetes mellitus without complications; Z88.6 Allergy status to analgesic agent
CPT/HCPCS: 36415; 71046; 73206; 76000; 80053; 80170; 82565; 83605; 85025; 87040; 87637; 94640; 96365; 96366; 99285; J1580; Q9967

== ENCOUNTER → 2025-06-20 16:57 | Outpatient (BNV) | payer OTHER, SELFPAY | PROVIDERS: Emergency Provider Emergency Medicine; PCP Internal Medicine; Visit Provider Radiology Diagnostic Radiology | DX: I82.611 Acute embolism and thrombosis of superficial veins of right upper extremity (principal) | CPT/HCPCS: 73206 ==

== ENCOUNTER → 2025-06-21 06:36 | Outpatient (BNV) | payer OTHER, SELFPAY | PROVIDERS: Emergency Provider Emergency Medicine; PCP Internal Medicine; Visit Provider Radiology Body Imaging | DX: R50.9 Fever, unspecified (principal) | CPT/HCPCS: 71046 ==

== ENCOUNTER 2025-06-22 05:27 | Emergency (ER) | payer OTHER, SELFPAY ==
--- OUTSIDE RECORDS SUMMARY | 2023-12-29 09:30 | XMS_ITS ---
Author Organization Darrian Ziegler III, MD Address [address] [place] [address] Care Team Providers Care Agricultural Purchasing Agent Name Role Phone Tony PINK, [facility] Primary Care Provider Dr. Darrian Smith III [...] Date Provider Diagnosis Darrian Ziegler III, MD [address] [place] [address] [place] [address] 12/29/2023 Darrian Ziegler HTN (hypertension) I 10 [...] Months, Reason: OV Provider Name:Darrian Ziegler , 12/11/2025 02:00:00 PM, [address] [place] [address] [address] [facility] [place], [address], Progress Notes * Zehra AGOSTO KDOB: (73 yo M)Acc No.[id number]:12/29/2023 Progress Notes Patient: Candelario Angelguykamala Sheehan Provider: Yahaira Ziegler MD :1950 A ge:73 Y S ex:Male Date:12/29/2023 Address:[address] [place], [place] [phone] Pcp:Hilary Jimenez MD Subjective: * Chief Complaints: [...] medical issues. Her into the emergency room [facility] December 22, 2023 for a urinary [...] T obacco Use: T obacco Use/Smoking P jenny is a n onsmoker A dditional Findings: Tobacco Non-User A ggressive non-smoker Quentin olivares was born in [facility] and now lives in [place], [place]. He is and has several children. [...] 30 L >40 - mg/dL L ab:Comprehensive [place]. Panel Fast (Order Date - 12/18/2023) (Collection [...] Range?Hemoglobin A1c %6.2H<6.0 - % ?Estimated Average Meynycq860- mg/dL ???Lab:Microalbumin, Random (Order Date - 12/18/2023) (Collection Date - 12/18/2023)?ValueReference Range?Creatinine Urine75.67- mg/dL ?Microalbumin Ddgha536.0- mg/L?Microalbum Creatinine Ratio Ur199.5 H<30 - ug/mg cr * Examination: G eneral Examination: GENERAL APPEARANCE: p leasant, well nourished, well developed, in no acute [...] MD Date: 0 12/29/2023 Generated for Ana cabrera/Linden/Nigel on: 08/22/2024 06:11 AM EST History and Physical Notes * HPI [...]
--- OUTSIDE RECORDS SUMMARY | 2024-05-02 10:30 | XMS_ITS ---
Author Organization Darrian Ziegler III, MD Address [address] [place] [address] Care Team Providers Care Door Patcher Name Role Phone Tony PINK, [facility] Primary Care Provider Dr. Darrian Smith III Unavailable Allergies Allergen (clinical drug ingredient) Drug/Non Drug Allergy documented on EMR Reaction Allergy Type Onset Date Status aspirin Aspirin Unknown Drug Allergy Active Motrin Unknown Drug Allergy Active REASON FOR VISIT History of urothelial carcinoma, History of radical cystectomy, Normochromic normocytic anemia, Hepatic cirrhosis, Diabetes, Hypertension, Hypothyroid, BPH Medications Medication SIG (Take, Route, Frequency, Duration) Notes Start Date End Date Status Januvia 50 MG 1 tablet Orally Once a day Active Folic Acid 1 MG 1 tablet Orally Once a day 11/12/2021 Active metFORMIN HCl 500 MG 1 tablet with a dick l Orally Twice a day Active Telmisartan 80 MG 1 tablet Orally Once a day Active Ferrous Sulfate 325 (65 Fe) MG 1 tablet Orally Three times a Week Active Vitamin C Active Methenamine Hippurate 1 GM 1 tablet Oral ly Twice a day Active Social History Tobacco Use: Social History Observation Description Date Details (start date - stop date) Never Smoker NA - NA Tobacco Use/Smoking Question Answer Notes Patient is a nonsmoker Additional Findings: Tobacco Non-User Aggressive non-smoker Vital Signs Temperature 97.2 degrees Fahrenheit 05/02/20 24 Blood pressure systolic 136 mm Hg 05/02/20 24 Blood pressure diastolic 69 mm Hg 024 Heart Rate 68 /min 05/02/2024 Height 61 in 05/02/2024 Weight 128 lbs 05/02/2024 BMI 24.18 kg/m2 05/02/2024 Encounters Encounter Location Date Provider Diagnosis Darrian Ziegler III, MD [address] [place] [address] [place], [place] [phone] 05/02/2024 Darrian Ziegler HTN (hypertension) I 10 ; Anemia D64.9 ; Mixed hyperlipidemia E78.2 ; Benign prostatic hyperplasia with lower urinary tract symptoms N40.1 ; Diabetes mellitus E11.9 ; Urothelial carcinoma C68.9 and Cirrhosis of liver without ascites, unspecified hepatic cirrhosis type K74.60 Assessments Encounter Date Diagnosis (ICD Code) Assessment Notes Treat ment Notes Treatment Clinical Notes 05/02/2024 HTN (hypertension) (ICD-10 - I10) His blood pressure is currently stable at 136/69 and no change in his regimen is needed today. 05/02/2024 Anemia (ICD-10 - D64.9) The hematocrit this month is 31.9 with a mean cell volume of 100.9. This value will be observed. It is stable. 05/02/2024 Mixed hyperlipidemia (ICD-10 - E78.2) Is currently stable and no change in his treatment is needed. 05/02/2024 Benign prostatic hyperplasia with lower urinary tract symptoms (ICD-10 - N40.1) He has been rising from sleep once or twice a night to urinate. No change in his regimen as needed. 05/02/2024 Diabetes mellitus (ICD-10 - E11.9) His diabetes has been well controlled. No change in his medications was necessary today. 05/02/2024 Urothelial carcinoma (ICD-10 - C68.9) There is no sign of recurrent disease at this time. The ileostomy is functioning well. 05/02/2024 Cirrhosis of liver without ascites, unspecified hepatic cirrhosis type (ICD-10 - K74.60) On the MRI of the liver has been done by his learning support teacher, Dr. Burnett. It showed thickening of the renal pelvis which will be referred to urology. It also showed 2 enhancing masses in the liver 1 being 1.1 cm equivocal for hepatocellular carcinoma. This will be followed. An alpha-fetoprotein will be obtained. Plan Of Treatment Medication Medication Name Sig Start Date Stop Date Notes Januvia 50 MG 1 tablet Orally Once a day Folic Acid 1 MG 1 tablet Orally Once a day 11/12/2021 metFORMIN HCl 500 MG 1 tablet with a dick l Orally Twice a day Telmisartan 80 MG 1 tablet Orally Once a day Ferrous Sulfate 325 (65 Fe) MG 1 tablet Orally Three times a Week Vitamin C Methenamine Hippurate 1 GM 1 tablet Orally Twice a day Pending Test Test Name Order Date PROFILE, FASTING (COMPREHENSIVE METABOLI C) 05/02/2024 PSA, TOTAL 05/02/2024 CBC WITH AUTO DIFF 05/02/2024 Lipid Panel 05/02/2024 Next Appt Details Follow Up: 7 Months, Reason: OV Provider Name:Darrian Ziegler , 12/11/2025 02:00:00 PM, [address] [place] [address] [address], [place], [address], Progress Notes * Candelario AGOSTOchandu KDOB: (74 yo M)Acc No.[id number]:[birth year]/02[birth year]2024 Progress Notes Patient: Zehra GALICIA Provider: Yahaira Ziegler MD :1950 A ge:74 Y S ex:Male Date:05/02/2024 Address:[address] [place], [place] [phone] Pcp:Hilary Jimenez MD Subjective: * Chief Complaints: * H istory of urothelial carcinomaHistory of radical cystectomyNormochromic normocytic anemiaHepatic cirrhosisDiabetesHypertensionHypothyroidBPH * HPI: C OVID-19 Screening: He returns for oncology management. He has had no symptoms referable to relapsed bladder cancer. Urostomy is functioning well. He is up-to-date with urology. He has no new complaints. He was seen by gastroenterology and an MRI of the liver has been performed Which showed thickening of the right renal pelvis of uncertain cause as well as 2 small hyperintense enhancing lesions in the liver that were equivocal for hepatocellular carcinoma, Li Rads 3. Questions H ave you experienced fever, chills, cough, sore throat, shortness of breath, difficulty breathing, muscle aches, loss of taste or smell? N o H ave you been exposed to the virus within the last 10 days? N o H ave you travelled internationally in the last 10 days? N o H ave you been exposed to COVID-19 in the past? N o * ROS: G eneral/Constitutional: pain o nly normal aches and pains. C hills d enies.?Fatigue a dmits. F ever d enies. E NT: Decreased hearing d enies. R espiratory: Cough d enies. C ardiovascular: Chest pain with exertion d enies. D yspnea on exertion?denies. S hortness of breath d enies. G astrointestinal: Constipation d enies. D ecreased appetite d enies.?Diarrhea d enies. H eartburn o ccasional. N ausea d enies. R ectal bleeding d enies. V omiting d enies. H ematology: bruising d enies. p etechiae d enies. S wollen glands n one have been noted. G enitourinary: Frequent urination o nce a night, to empty urostomy pouch.? M usculoskeletal: Muscle aches d enies. P [...] diagnosed with HTN. S iblings: diagnosed with DM, HTN. 2 brother(s) , 1 sister(s) - healthy. [...] T obacco Use: T obacco Use/Smoking P atient is a n onsmoker A dditional Findings: Tobacco Non-User A ggressive non-smoker Quentin olivares was born in [place] and now lives in [place], [place]. He is and has several children. He is currently retired. * Medications: T akingMethenamine Hippurate 1 GM Tablet 1 tablet Orally Twice a day Vitamin C Ferrous Sulfate 325 (65 Fe) MG Tablet 1 tablet Orally Three times a Week Telmisartan 80 MG Tablet 1 tablet Orally Once a day metFORMIN HCl 500 MG Tablet 1 tablet with a meal Orally Twice a day Januvia 50 MG Tablet 1 tablet Orally Once a day Folic Acid 1 MG Tablet 1 tablet Orally Once a day Taking Methenamine Hippurate 1 GM Tablet 1 tablet Orally Twice a day Taking Vitamin C Taking Ferrous Sulfate 325 (65 Fe) MG Tablet 1 tablet Orally Three times a Week Taking Telmisartan 80 MG Tablet 1 tablet Orally Once a day Taking metFORMIN HCl 500 MG Tablet 1 tablet with a meal Orally Twice a day Taking Januvia 50 MG Tablet 1 tablet Orally Once a day Taking Folic Acid 1 MG Tablet 1 tablet Orally Once a day DiscontinuedMultivitamin Cholecalciferol Dulcolax 5 MG Tablet Delayed Release 1 tablet as needed Orally Once a day Cefuroxime Axetil 500 MG Tablet TAKE 1 TABLET BY MOUTH TWICE A DAY FOR 10 DAYS Oral Montelukast Sodium 10 MG Tablet 1 tablet Orally Once a day Atorvastatin Calcium 10 MG Tablet 1 tablet Orally Once a day Medication List reviewed and reconciled with the patientDiscontinued Multivitamin Discontinued Cholecalciferol Discontinued Dulcolax 5 MG Tablet Delayed Release 1 tablet as needed Orally Once a day Discontinued Cefuroxime Axetil 500 MG Tablet TAKE 1 TABLET BY MOUTH TWICE A DAY FOR 10 DAYS Oral Discontinued Montelukast Sodium 10 MG Tablet 1 tablet Orally Once a day Discontinued Atorvastatin Calcium 10 MG Tablet 1 tablet Orally Once a day Medication List reviewed and reconciled with the patient * Allergies: Luke Santos[Allergies Verified] Objective: * Vitals: H t: 61, Wt:128, BMI:24.18, BP:136/69, HR:68, Temp:97.2, Wt-k.06. * P ast Orders: Lab:Comprehensive [place]. Dereke l Fast * Collection Date 04/15/2024 12/18/2023 Collection Time 10:27 AM 10:47 AM Order Date 04/15/2024 12/18/2023 Sodium 138 (Ref Range: 135-145 mmol/L) 132 L (Ref Range: 135-145 mmol/L) Bilirubin Total 0.5 (Ref Range: 0.0-1.0 mg/dL) 0.8 (Ref Range: 0.0-1.0 mg/dL) Aspartate Amino Transferase 43 H (Ref Range: 5-37 U/L) 43 H (Ref Range: 5-37 U/L) Alanine Aminotransferase 36 (Ref Range: 0-40 U/L) 29 (Ref Range: 0-40 U/L) Total Protein 7.1 (Ref Range: 6.5-8.0 g/dL) 8.7 H (Ref Range: 6.5-8.0 g/dL) Albumin Level 3.7 (Ref Range: 3.5-5.0 g/dL) 3.6 (Ref Range: 3.5-5.0 g/dL) Alkaline Phosphatase 196 H (Ref Range: 39-117 U/L) 282 H (Ref Range: 39-117 U/L) Potassium 4.8 (Ref Range: 3.3-5.1 mmol/L) 4.1 (Ref Range: 3.3-5.1 mmol/L) Chloride 112 H (Ref Range: 96-108 mmol/L) 106 (Ref Range: 96-108 mmol/L) Carbon Dioxide 21 L (Ref Range: 22-29 mmol/L) 16 L (Ref Range: 22-29 mmol/L) Anion Gap 10 L (Ref Range: 12-20) 14 (Ref Range: 12-20) Blood Urea Nitrogen 23 H (Ref Range: 9-16 mg/dL) 14 (Ref Range: 9-16 mg/dL) Creatinine 1.22 (Ref Range: 0.5-1.4 mg/dL) 1.21 (Ref Range: 0.5-1.4 mg/dL) Estimated Glomerular Filt Rate 58 58 Glucose Fasting 94 (Ref Range: 60-99 mg/dL) 164 H (Ref Range: 60-99 mg/dL) Calcium 9.3 (Ref Range: 8.4-10.2 mg/dL) 9.5 (Ref Range: 8.4-10.2 mg/dL) * Lab:Lipid Panel * Collection Date 04/15/2024 12/18/2023 Collection Time 10:27 AM 10:47 AM Order Date 04/15/2024 12/18/2023 Triglycerides 81 (Ref Range: <150 mg/dL) 92 (Ref Range: <150 mg/dL) Cholesterol 150 (Ref Range: <200 mg/dL) 138 (Ref Range: <200 mg/dL) LDL Cholesterol Calculated 80 (Ref Range: <100 mg/dL) 90 (Ref Range: <100 mg/dL) HDL Cholesterol 54 (Ref Range: >40 mg/dL) 30 L (Ref Range: >40 mg/dL) * Lab:Hemoglobin A1c * Collection Date 04/15/2024 12/18/2023 Collection Time 10:27 AM 10:47 AM Order Date 04/15/2024 12/18/2023 Hemoglobin A1c % 5.5 (Ref Range: <6.0 %) 6.2 H (Ref Range: <6.0 %) Estimated Average Glucose 111 (Ref Range: mg/dL) 131 (Ref Range: mg/dL) * Examination: G eneral Examination: GENERAL APPEARANCE: p leasant, well nourished, well developed, in no acute distress, calm and relaxed, man. HEAD: a traumatic, normocephalic. EYES: e [...] normal, no ascites, no organomegaly, no mass, Urostomy opening right upper abdomen functioning well unremarkable with healthy pink tissue. RECTAL EXAM: n ot examined. MUSCULOSKELETAL: e xtremities unremarkable, no clubbing, cyanosis or edema. PERIPHERAL PULSES: n ormal. NEUROLOGIC: a lert and oriented, cranial nerves 2-12 grossly intact, deep tendon reflexes 2+ symmetrical, motor strength normal upper and lower extremities, sensory exam intact. PSYCH: a lert, oriented. Assessment: * Assessment: 1. H TN (hypertension) - I10 (Primary) N otes :His blood pressure is currently stable at 136/69 and no change in his regimen is needed today. 2 . A nemia - D64.9 N otes :The hematocrit this month is 31.9 with a mean cell volume of 100.9. This value will be observed. It is stable. 3 . M ixed hyperlipidemia - E78.2 N otes :Is currently stable and no change in his treatment is needed. 4 . B enign prostatic hyperplasia with lower urinary tract symptoms - N40.1? Notes :He has been rising from sleep once or twice a night to urinate. No change in his regimen as needed. 5 . D iabetes mellitus - E11.9 N otes :His diabetes has been well controlled. No change in his medications was necessary today. 6 . U rothelial carcinoma - C68.9 N otes :There is no sign of recurrent disease at this time. The ileostomy is functioning well. 7 . C irrhosis of liver without ascites, unspecified hepatic cirrhosis type - K74.60 N otes :On the MRI of the liver has been done by his learning support teacher, Dr. Burnett. It showed thickening of the renal pelvis which will be referred to urology. It also showed 2 enhancing masses in the liver 1 being 1.1 cm equivocal for hepatocellular carcinoma. This will be followed.? An alpha-fetoprotein will be obtained. Plan: * Treatment: 2. A nemia L AB: PROFILE, FASTING (COMPREHENSIVE METABOLIC) L AB: PSA, TOTAL L AB: CBC WITH AUTO DIFF L AB: Lipid Panel 3. M ixed hyperlipidemia L AB: PROFILE, FASTING (COMPREHENSIVE METABOLIC) L AB: PSA, TOTAL L AB: CBC WITH AUTO DIFF L AB: Lipid Panel 4. B enign prostatic hyperplasia with lower urinary tract symptoms L AB: PROFILE, FASTING (COMPREHENSIVE METABOLIC) L AB: PSA, TOTAL L AB: CBC WITH AUTO DIFF L AB: Lipid Panel * Procedure Codes: * Preventive Medicine: DM Care Plan: P atient Lifestyle Goals P atient wants to be able to manage diabetes without too much effort. T reatment Goals B lood Sugars less than < 115, HbA1C < 7.0. B arriers n o barriers. S elf-Managment Goals I ncrease exercise to 3 times a week for 30 mins, Stop drinking juice and/or soda, replace with more water. * Follow Up: 7 Months (Reason: OV) * Images: * Sign off status: Completed true * Provider: Yahaira Ziegler MD Date: 0 05/02/2024 Generated for Printi ng/Faxing/eTransmitting on: 08/22/2024 06:10 AM EST History and Physical Notes * HPI (History of Present Illness) Category Sub-Category Detail Notes COVID-19 Screening Questions Have you had any new onset fever, chills, cough, congestion, sore throat, shortness of breath, muscle aches?: No Have you been exposed to the virus withi n the last 10 days?: No Have you travelled internationally in [facility] last 10 days?: No Have you been exposed to COVID-19 in the past?: No Examination Category Sub-Category Detail Notes General Examination GENERAL APPEARANCE: pleasant , well nourished, well developed, in no acute distress, calm and relaxed, man HEAD: atraumatic, normocep halic EYES: eomi, perrla, anicte tay, conjugate EARS: normal NOSE: septum intact NECK/THYROID: no jugular venous di stention, no carotid bruit, thyroid normal HEART: no clicks, gallops, murmurs, or rubs, regular rhythm, S1, S2 normal, no s3, or vascular bruits LUNGS: clear to auscultatio n ABDOMEN: bowel sounds normal, no ascites, no organomegaly, no mass, Urostomy opening right upper abdomen functioning well unremarkable with healthy pink tissue NEUROLOGIC: alert and oriented, cranial nerves 2-12 [...] RECTAL EXAM: not examined PSYCH: alert, oriented ORAL CAVITY: normal, unremarkable
--- OUTSIDE RECORDS SUMMARY | 2024-12-26 04:20 | XMS_ITS ---
Author Organization [facility] Address 10 [facility] [address] [place] [address] Care Team Providers Care Security Technician Name Role Phone Hilary Jimenez Primary Care Provider Unavailab Joe Hardy Jr [phone] REASON FOR VISIT cirrhosis Encounters Encounter Location Date Provider Diagnosis [facility] [address] [facility] [address] [place] [address] 12/26/2024 Joe Burnett Jr Plan Of Treatment Next Appt Details Provider Name:Joe estrada Jr, 05/24/2026 01:35:00 PM, [address] [facility], [address], [place], [address], Progress Notes * AGOSTO, Zehra KDOB: (75 yo M)Acc No.[id number]:12/26/2024 Progress Notes Patient: Candelario GALICIAchandu Sissy Provider: Symone Burnett MD :1950 A ge:74 Y S ex:Male Date:12/26/2024 Address:[address] [place] [address] Pcp:Hilary Jimenez Subjective: * Chief Complaints: * [...] 0 12/26/2024 Generated for Ana cabrera/Linden/Nigel on: 08/22/2024 06:11 AM EST
--- OUTSIDE RECORDS SUMMARY | 2024-12-27 12:00 | XMS_ITS ---
Author Organization [facility] III, MD Address [address] [facility] [place] [address] Care Team Providers Care Cadd Technician Name Role Phone Tony PINK, Hilary Primary Care Provider Dr. Darrian Smith III [phone] REASON FOR VISIT Followup Encounters Encounter Location Date Provider Diagnosis Darrian Ziegler III, MD [address] [place] [address] [place] [address] 12/27/2024 Darrian Ziegler Plan Of Treatment Next Appt Details Provider Name:Darrian Ziegler , 12/11/2025 02:00:00 PM, [address] [place] [address] [address] [place], [place], [address], Progress Notes * Zehra AGOSTO KDOB: (75 yo M)Acc No.[id number]:12/27/2024 Progress Notes Patient: Zehra GALICIA Provider: Yahaira Ziegler MD :1950 A ge:74 Y S ex:Male Date:12/27/2024 Phone: Address:[address] [place] [address] Pcp:Hilary Jimenez MD Subjective: * Chief Complaints: * 1 . Followup. * Medical History: Objective: * Vitals: Assessment: Plan: * Treatment: * Images: * The named appointment provid er may or may not be the originator of this progress note, and it is not deemed complete until electronically signed by the appointment provider. Sign off status: Pending * Provider: Yahaira Ziegler MD Date: 0 12/27/2024 Generated for Ana cabrera/Linden/Nigel on: 1 08/22/2024 06:10 AM EST
--- OUTSIDE RECORDS SUMMARY | 2025-01-31 05:15 | XMS_ITS ---
Author Organization Darrian Ziegler III, MD Address [address] [place] [address] [place] [address] Care Team Providers Care Binding Printer Name Role Phone Tony PINK, [facility] Primary Care Provider Dr. Darrian [...] Provider Diagnosis Darrian Ziegler III, MD [address] [place] [address] DR [place], KAREN [address] 01/31/2025 Darrian Ziegler Urothelial carcinoma C68.9 ; [...] the liver has been done by his process tech, Dr. Burnett. It showed thickening of the [...] Provider Name:Darrian Ziegler , 12/11/2025 02:00:00 PM, [address] [place] [address], [address], Progress Notes * Zehra AGOSTO KDOB: (74 yo M)Acc No.[id number]:01/31/2025 Progress Notes Patient: Zehra GALICIA Provider: Yahaira Ziegler MD :1950 A ge:74 Y S ex:Male Date:01/31/2025 Phone: Address:[address] [place] [phone] Pcp:Hilary Jimenez MD Subjective: * Chief Complaints: [...] non-smoker Quentin olivares was born in [facility] and now lives in [place], [place]. He is and has several children. [...] and reconciled with the patient * Allergies: M Tom[Allergies Verified] Objective: * Vitals: H t: 61, [...] 0.000 (Ref Range: 0.0-0.012 X10*3/uL) * Lab:Kristopher Colby. Cate l Fast * Collection Date 01/26/2025 04/15/2024 12/18/2023 [...] the liver has been done by his process tech, Dr. Burnett. It showed thickening of the [...] MD Date: 0 01/31/2025 Generated for Ana cabrera/Linden/Tiannasmitting on: 08/22/2024 06:10 AM EST History and [...] atraumatic, normocep halic EYES: eomi, perrla, anicte aty, conjugate EARS: normal NOSE: septum intact NECK/THYROID: [...]
--- OUTSIDE RECORDS SUMMARY | 2025-03-07 06:00 | XMS_ITS ---
Author Organization [facility] Address [address] [facility] [address] [place] [address] Care Team Providers Care Brine Mixer Operator Name Role Phone Hilary Jimenez Primary Care Provider Unavailab Joe Hardy Jr REASON FOR VISIT abn findings in stool Encounters Encounter Location Date Provider Diagnosis [facility] [place] Out[place] [address] [place] [id number] 03/07/2025 Joe Burnett Jr Plan Of Treatment Next Appt Details Provider Name:Joe estrada Jr, 05/24/2026 01:35:00 PM, [address] [facility], Suite [facility], [place], [address], Progress Notes * Zehra AGOSTO KDOB: (75 yo M)Acc No.[id number]:03/07/2025 EGD and COL/MAC Patient: Vance MCCLOUD Zehra Sheehan Provider: Symone Burnett MD :1950 A ge:74 Y S ex:Male Date:03/07/2025 Address:[address] [place] [phone] Pcp:Hilary Jimenez Subjective: * Chief Complaints: * 1 . Abn findings in stool. * Medical History: Objective: * Vitals: Assessment: Plan: * Treatment: * * The named appointment provid er may or may not be the originator of this progress note, and it is not deemed complete until electronically signed by the appointment provider. Sign off status: Pending * Provider: Symone Burnett MD Date: 0 03/07/2025 Generated for Ana cabrera/Linden/Nigel on: 08/22/2024 06:10 AM EST
--- OUTSIDE RECORDS SUMMARY | 2025-04-04 06:10 | XMS_ITS ---
Author Organization [facility] Address [address] [facility] [address] [place] [address] Care Team Providers Care Safety Deposit Supervisor Name Role Phone Hilary Jimenez Primary Care Provider Unavailab Joe Hardy Jr REASON FOR VISIT abnormal ct scan Encounters Encounter Location Date Provider Diagnosis [facility] Outpatient [address] [place] [id number] 04/04/2025 Joe Burnett Jr Plan Of Treatment Next Appt Details Provider Name:Joe estrada Jr, 05/24/2026 01:35:00 PM, [address] [facility], [address], [place], [address], Progress Notes * Zehra AGOSTO KDOB: (75 yo M)Acc No.[id number]:04/04/2025 EGD and COL/MAC Patient: Vance MCCLOUD Zehra Sheehan Provider: Symone Burnett MD :1950 A ge:75 Y S ex:Male Date:04/04/2025 Address:[address] [place] [phone] Pcp:Hilary Jimenez Subjective: * Chief Complaints: * [address] scan[address] * Medical History: Objective: * Vitals: Assessment: Plan: * Treatment: * * The named appointment provid er may or may not be the originator of this progress note, and it is not deemed complete until electronically signed by the appointment provider. Sign off status: Pending * Provider: Symone Burnett MD Date: 0 04/04/2025 Generated for Ana cabrera/Linden/Nigel on: 08/22/2024 06:09 AM EST
--- OUTSIDE RECORDS SUMMARY | 2025-05-04 05:30 | XMS_ITS ---
Author Organization Darrian Ziegler III, MD Address [address] [place] [address] Care Team Providers Care Livestock Nutritionist Name Role Phone Tony PINK, [facility] Primary Care Provider Dr. Darrian Smith III Unavailable Allergies Allergen (clinical drug ingredient) Drug/Non Drug Allergy documented on EMR Reaction Allergy Type Onset Date Status aspirin Aspirin Unknown Drug Allergy Active Motrin Unknown Drug Allergy Active REASON FOR VISIT hepatic cirrhosis, anemia, bladder cancer, asthma, diabetes, bph, hypothyroid Medications Medication SIG (Take, Route, Frequency, Duration) Notes Start Date End Date Status Albuterol Sulfate HFA 108 (90 Base) MCG/ACT Inhalation Active Atorvastatin Calcium 10 MG 1 tablet Oral ly Once a day Active Folic Acid 1 MG 1 tablet Orally Once a day 01/31/2025 Active Symbicort 160-4.5 MCG/ACT as directed Inhalation Active Iron (Ferrous Sulfate) 325 (65 Fe) MG 1 tablet Orally Once a day Active Montelukast Sodium 10 MG 1 tablet Orally Once a day Active Telmisartan 20 MG 1 tablet Orally Once a day Active Social History Tobacco Use: Social History Observation Description Date Details (start date - stop date) Never Smoker NA - NA Tobacco Use/Smoking Question Answer Notes Patient is a nonsmoker Additional Findings: Tobacco Non-User Aggressive non-smoker Vital Signs Temperature 98.4 degrees Fahrenheit 05/04/20 25 Blood pressure systolic 137 mm Hg 05/04/20 25 Blood pressure diastolic 49 mm Hg 025 Heart Rate 71 /min 05/04/2025 Height 61 in 05/04/2025 Weight 128 lbs 05/04/2025 BMI 24.18 kg/m2 05/04/2025 Encounters Encounter Location Date Provider Diagnosis Darrian Ziegler III, MD [address] [place] [address] [place] [address] 05/04/2025 Darrian Ziegler HTN (hypertension) I 10 ; Cirrhosis of liver without ascites, unspecified hepatic cirrhosis type K74.60 ; Asthma J45.909 ; Anemia D64.9 ; Diabetes mellitus E11.9 ; Hypothyroid E03.9 ; Urothelial carcinoma C68.9 ; Ileostomy in place Z93.2 and Benign prostatic hyperplasia with lower urinary tract symptoms N40.1 Assessments Encounter Date Diagnosis (ICD Code) Assessment Notes Treatment Notes Treatment Clinical Notes 05/04/2025 HTN (hypertension) (ICD-10 - I10) His blood pressure is currently stable at 137/49 and no change in his regimen is needed today. 05/04/2025 Cirrhosis of liver without ascites, unspecified hepatic cirrhosis type (ICD-10 - K74.60) On the MRI of the liver has been done by his insulation blower, Dr. Burnett. It showed thickening of the renal pelvis which will be referred to urology. It also showed 2 enhancing masses in the liver 1 being 1.1 cm equivocal for hepatocellular carcinoma. This is being followed. An alpha-fetoprotein will be obtained.A repeat MRI has been scheduled. 05/04/2025 Asthma (ICD-10 - J45.909) He reports no difficulty with breathing since his last visit. He tolerated the hot weather of the summer without difficulty. 05/04/2025 Anemia (ICD-10 - D64.9) His hematocrit is slightly lower, but he had a recent episode of bleeding which required hospitalization. His ferritin is rising. His iron supplementation has been stopped. This will be observed. 05/04/2025 Diabetes mellitus (ICD-10 - E11.9) Is A1c was quite low and primary care has discontinued his ddiabetic medications. His current fasting glucose is 111. 05/04/2025 Hypothyroid (ICD-10 - E03.9) He remains euthyroid. No change in his medication was needed. 05/04/2025 Urothelial carcinoma (ICD-10 - C68.9) There is no sign of recurrent disease at this time. The ileostomy is functioning well.He was hospitalized recently for bleeding into the urostomy but this has resolved and no serious cause was found. 05/04/[address] (ICD-10 - Z93.2) The urine in the bag appeared to be completely normal. He has had no bleeding. The ostomy is functioning well. 05/04/2025 Benign prostatic hyperplasia with lower urinary tract symptoms (ICD-10 - N40.1) He rises from sleep once or twice a night to urinate depending upon fluid intake. We reviewed lifestyle modification she could make to reduce nocturia. Plan Of Treatment Medication Medication Name Sig Start Date Stop Date Notes Albuterol Sulfate HFA 108 (9 0 Base) MCG/ACT Inhalation Atorvastatin Calcium 10 MG 1 tablet Orally Once a day Folic Acid 1 MG 1 tablet Orally Once a day 01/31/2025 Symbicort 160-4.5 MCG/ACT as directed Inhalation Iron (Ferrous Sulfate) 325 ( 65 Fe) MG 1 tablet Orally Once a day Montelukast Sodium 10 MG 1 tablet Orally Once a day Telmisartan 20 MG 1 tablet Orally Once a day Pending Test Test Name Order Date PROFILE, FASTING (COMPREHENSIVE METABOLI C) 05/04/2025 CBC w DIFF 05/04/2025 ALPHA-FETOPROTEIN,TUMOR MARKER MRI ABD W&WO CONTRAST 05/04/2025 Ferritin 05/04/2025 Lipid Panel 05/04/2025 Hemoglobin A1c 05/04/2025 Next Appt Details Follow Up: 7 months, Reason: OV Provider Name:Darrian Ziegler , 12/11/2025 02:00:00 PM, [address] [place] [address], [address], Progress Notes * Zehra AGOSTO KDOB: (75 yo M)Acc No.[id number]:05/04/2025 Progress Notes Patient: Kana GALICIArichardra Sheehan Provider: Yahaira Ziegler MD :1950 A ge:75 Y S ex:Male Date:05/04/2025 Phone: Address:[address] [place] [id number] Pcp:Hilary Jimenez MD Subjective: * Chief Complaints: * H epatic cirrhosisAnemiaBladder cancerAsthmaDiabetesBphHypothyroid * HPI: C OVID-19 Screening: Quentin olivares returns to the office for ongoing evaluation of his hematologic abnormalities, and a 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 He was recently hospitalized for bleeding into the urostomy and was seen by urology that no serious cause was found. It has not reoccurred. His blood work was reviewed with him. His alkaline phosphatase and ferritin are rising. He is taking an iron supplement that was given to him in I and I have ttold him to stop it. In view of the ferritin. His hemoglobin A1c was recently 4.9 and his diabetic medications have been stopped. He is scheduled for an endoscopy and colonoscopy next week with Dr. Darrian Rowe at [facility]. On examination today, he still has a pronounced mitral valve murmur she is unchanged. He seeems to be healthy and well at this time.? He is due for repeat MRI of the abdomen to monitor the 1.1 cm hepatic lesion. Comprehensive blood work with a ferritin and an alpha-fetoprotein have been ordered.He will be leaving the country in early June 2025 to spend the winter in [facility] He says he will returrn in November of 2025. Questions H ave you had any new [...] born in [place] and now lives in [place], [place]. He is and has several children. He is currently retired. * Medications: T akingTelmisartan 20 MG Tablet 1 tablet Orally Once a day Montelukast Sodium 10 MG Tablet 1 tablet Orally Once a day Atorvastatin Calcium 10 MG Tablet 1 tablet Orally Once a day Folic Acid 1 MG Tablet 1 tablet Orally Once a day Symbicort 160-4.5 MCG/ACT Aerosol as directed Inhalation Albuterol Sulfate HFA 108 (90 Base) MCG/ACT Aerosol Solution Inhalation Taking Telmisartan 20 MG Tablet 1 tablet Orally Once a day Taking Montelukast Sodium 10 MG Tablet 1 tablet Orally Once a day Taking Atorvastatin Calcium 10 MG Tablet 1 tablet Orally Once a day Taking Folic Acid 1 MG Tablet 1 tablet Orally Once a day Taking Symbicort 160-4.5 MCG/ACT Aerosol as directed Inhalation Taking Albuterol Sulfate HFA 108 (90 Base) MCG/ACT Aerosol Solution Inhalation DiscontinuedIron (Ferrous Sulfate) 325 (65 Fe) MG Tablet 1 tablet Orally Once a day B Complex Multivitamin Dulcolax 5 MG Tablet Delayed Release 1 tablet as needed Orally Once a day Januvia 50 MG Tablet 1 tablet Orally Once a day metFORMIN HCl 500 MG Tablet 1 tablet with a meal Orally Twice a day Ciprofloxacin HCl 500 MG Tablet Oral Medication List reviewed and reconciled with the patientDiscontinued Iron (Ferrous Sulfate) 325 (65 Fe) MG Tablet 1 tablet Orally Once a day Discontinued B Complex Discontinued Multivitamin Discontinued Dulcolax 5 MG Tablet Delayed Release 1 tablet as needed Orally Once a day Discontinued Januvia 50 MG Tablet 1 tablet Orally Once a day Discontinued metFORMIN HCl 500 MG Tablet 1 tablet with a meal Orally Twice a day Discontinued Ciprofloxacin HCl 500 MG Tablet Oral Medication List reviewed and reconciled with the patient * Allergies: M Tom[Allergies Verified] Objective: * Vitals: H t: 61, Wt:128, BMI:24.18, BP:137/49, HR:71, Temp:98.4, Wt-k.06. * P ast Orders: Lab:Prostate Specific Antige n * Collection Date 04/14/2025 01/26/2025 12/18/2023 Collection Time 09:50 AM 09:17 AM 10:47 AM Order Date 04/14/2025 01/26/2025 12/18/2023 Prostate Specific Antigen < 0.10 (Ref Range: <0.05-4.0 ng/mL) < 0.10 (Ref Range: <0.05-4.0 ng/mL) < 0.10 (Ref Range: <0.05-4.0 ng/mL) * Lab:Lipid Panel * Collection Date 04/14/2025 01/26/2025 04/15/2024 Collection Time 09:50 AM 09:17 AM 10:27 AM Order Date 04/14/2025 01/26/2025 04/15/2024 Triglycerides 104 (Ref Range: <150 mg/dL) 95 (Ref Range: <150 mg/dL) 81 (Ref Range: <150 mg/dL) Cholesterol 162 (Ref Range: <200 mg/dL) 148 (Ref Range: <200 mg/dL) 150 (Ref Range: <200 mg/dL) LDL Cholesterol Calculated 93 (Ref Range: <100 mg/dL) 80 (Ref Range: <100 mg/dL) 80 (Ref Range: <100 mg/dL) HDL Cholesterol 49 (Ref Range: >40 mg/dL) 49 (Ref Range: >40 mg/dL) 54 (Ref Range: >40 mg/dL) * Lab:Folate * Collection Date 04/14/2025 05/11/2023 05/06/2022 Collection Time 09:50 AM 10:09 AM 11:22 AM Order Date 04/14/2025 05/11/2023 05/06/2022 Folate 16.3 (Ref Range: > or = 4.0 ng/mL) 16.6 (Ref Range: > or = 4.0 ng/mL) > 20.0 (Ref Range: > or = 4.0 ng/mL) * Lab:Complete Blood Count Aut o Diff * Collection Date 04/14/2025 01/26/2025 01/26/2025 Collection Time 09:50 AM 09:17 AM 09:17 AM Order Date 04/14/2025 01/26/2025 01/26/2025 White Blood Count 5.9 (Ref Range: 4.8-10.8 X10*3/uL) 7.4 (Ref Range: 4.8-10.8 X10*3/uL) 7.4 (Ref Range: 4.8-10.8 X10*3/uL) Red Blood Count 2.98 L (Ref Range: 4.60-5.80 X10*6/uL) 3.10 L (Ref Range: 4.60-5.80 X10*6/uL) 3.10 L (Ref Range: 4.60-5.80 X10*6/uL) Hemoglobin 9.3 L (Ref Range: 14.0-18.0 g/dl) 10.1 L (Ref Range: 14.0-18.0 g/dl) 10.1 L (Ref Range: 14.0-18.0 g/dl) Hematocrit 28.6 L (Ref Range: 42.0-52.0 %) 31.1 L (Ref Range: 42.0-52.0 %) 31.1 L (Ref Range: 42.0-52.0 %) Mean Corpuscular Volume 96.0 (Ref Range: 80.0-98.0 fL) 100.3 H (Ref Range: 80.0-98.0 fL) 100.3 H (Ref Range: 80.0-98.0 fL) Mean Corpuscular Hemoglobin 31.2 (Ref Range: 27.0-33.0 pg) 32.6 (Ref Range: 27.0-33.0 pg) 32.6 (Ref Range: 27.0-33.0 pg) Mean Corpuscular HGB Conc 32.5 (Ref Range: 31.0-36.0 g/dl) 32.5 (Ref Range: 31.0-36.0 g/dl) 32.5 (Ref Range: 31.0-36.0 g/dl) Red Cell Distribution Width 17.8 H (Ref Range: 11.0-16.0 %) 15.9 (Ref Range: 11.0-16.0 %) 15.9 (Ref Range: 11.0-16.0 %) Platelet Count 150 L (Ref Range: 160-400 X10*3/uL) 144 L (Ref Range: 160-400 X10*3/uL) 144 L (Ref Range: 160-400 X10*3/uL) Mean Platelet Volume 11.4 (Ref Range: 9.4-12.4 fL) 10.9 (Ref Range: 9.4-12.4 fL) 10.9 (Ref Range: 9.4-12.4 fL) Neutrophils Percent Auto 48.9 (Ref Range: 45-73 %) 50.2 (Ref Range: 45-73 %) 50.2 (Ref Range: 45-73 %) Imm Gran Pct Auto 1.0 H (Ref Range: 0.0-0.4 %) 0.4 (Ref Range: 0.0-0.4 %) 0.4 (Ref Range: 0.0-0.4 %) Lymphocytes Percent Auto 21.2 (Ref Range: 20-40 %) 20.0 (Ref Range: 20-40 %) 20.0 (Ref Range: 20-40 %) Monocytes Percent Auto 10.3 (Ref Range: 2-11 %) 7.4 (Ref Range: 2-11 %) 7.4 (Ref Range: 2-11 %) Eosinophils Percent Auto 17.1 H (Ref Range: 0-4 %) 20.9 H (Ref Range: 0-4 %) 20.9 H (Ref Range: 0-4 %) Basophils Percent Auto 1.5 (Ref Range: 0-2 %) 1.1 (Ref Range: 0-2 %) 1.1 (Ref Range: 0-2 %) NRBC Pct Auto 0.0 (Ref Range: 0.0-0.2 /100WBC) 0.0 (Ref Range: 0.0-0.2 /100WBC) 0.0 (Ref Range: 0.0-0.2 /100WBC) Neutrophils Absolute Auto 2.9 (Ref Range: 2.0-8.3 x10*3/uL) 3.7 (Ref Range: 2.0-8.3 x10*3/uL) 3.7 (Ref Range: 2.0-8.3 x10*3/uL) Imm Gran Abs Auto 0.06 H (Ref Range: 0.00-0.03 X10*3/uL) 0.03 (Ref Range: 0.00-0.03 X10*3/uL) 0.03 (Ref Range: 0.00-0.03 X10*3/uL) Lymphocytes Absolute Auto 1.2 (Ref Range: 1.2-4.9 X10*3/uL) 1.5 (Ref Range: 1.2-4.9 X10*3/uL) 1.5 (Ref Range: 1.2-4.9 X10*3/uL) Monocytes Absolute Auto 0.6 (Ref Range: 0.1-1.2 X10*3/uL) 0.6 (Ref Range: 0.1-1.2 X10*3/uL) 0.6 (Ref Range: 0.1-1.2 X10*3/uL) Eosinophils Absolute Auto 1.0 H (Ref Range: 0.0-0.4 X10*3/uL) 1.6 H (Ref Range: 0.0-0.4 X10*3/uL) 1.6 H (Ref Range: 0.0-0.4 X10*3/uL) Basophils Absolute Auto 0.1 (Ref Range: 0.0-0.2 X10*3/uL) 0.1 (Ref Range: 0.0-0.2 X10*3/uL) 0.1 (Ref Range: 0.0-0.2 X10*3/uL) NRBC Abs Auto 0.000 (Ref Range: 0.0-0.012 X10*3/uL) 0.000 (Ref Range: 0.0-0.012 X10*3/uL) 0.000 (Ref Range: 0.0-0.012 X10*3/uL) * Lab:Kristopher Colby. Cate l Fast * Collection Date 04/14/2025 01/26/2025 04/15/2024 Collection Time 09:50 AM 09:17 AM 10:27 AM Order Date 04/14/2025 01/26/2025 04/15/2024 Sodium 137 (Ref Range: 135-145 mmol/L) 138 (Ref Range: 135-145 mmol/L) 138 (Ref Range: 135-145 mmol/L) Bilirubin Total 0.8 (Ref Range: 0.0-1.0 mg/dL) 0.7 (Ref Range: 0.0-1.0 mg/dL) 0.5 (Ref Range: 0.0-1.0 mg/dL) Aspartate Amino Transferase 76 H (Ref Range: 5-37 U/L) 62 H (Ref Range: 5-37 U/L) 43 H (Ref Range: 5-37 U/L) Alanine Aminotransferase 37 (Ref Range: 0-40 U/L) 35 (Ref Range: 0-40 U/L) 36 (Ref Range: 0-40 U/L) Total Protein 7.4 (Ref Range: 6.5-8.0 g/dL) 7.4 (Ref Range: 6.5-8.0 g/dL) 7.1 (Ref Range: 6.5-8.0 g/dL) Albumin Level 3.5 (Ref Range: 3.5-5.0 g/dL) 3.7 (Ref Range: 3.5-5.0 g/dL) 3.7 (Ref Range: 3.5-5.0 g/dL) Alkaline Phosphatase 329 H (Ref Range: 39-117 U/L) 262 H (Ref Range: 39-117 U/L) 196 H (Ref Range: 39-117 U/L) Potassium 4.5 (Ref Range: 3.3-5.1 mmol/L) 4.2 (Ref Range: 3.3-5.1 mmol/L) 4.8 (Ref Range: 3.3-5.1 mmol/L) Chloride 107 (Ref Range: 96-108 mmol/L) 112 H (Ref Range: 96-108 mmol/L) 112 H (Ref Range: 96-108 mmol/L) Carbon Dioxide 23 (Ref Range: 22-29 mmol/L) 21 L (Ref Range: 22-29 mmol/L) 21 L (Ref Range: 22-29 mmol/L) Anion Gap 12 (Ref Range: 12-20) 9 L (Ref Range: 12-20) 10 L (Ref Range: 12-20) Blood Urea Nitrogen 14 (Ref Range: 9-16 mg/dL) 15 (Ref Range: 9-16 mg/dL) 23 H (Ref Range: 9-16 mg/dL) Creatinine 1.08 (Ref Range: 0.5-1.4 mg/dL) 1.09 (Ref Range: 0.5-1.4 mg/dL) 1.22 (Ref Range: 0.5-1.4 mg/dL) Estimated Glomerular Filt Rate > 60 > 60 58 Glucose Fasting 111 H (Ref Range: 60-99 mg/dL) 110 H (Ref Range: 60-99 mg/dL) 94 (Ref Range: 60-99 mg/dL) Calcium 9.0 (Ref Range: 8.4-10.2 mg/dL) 9.2 (Ref Range: 8.4-10.2 mg/dL) 9.3 (Ref Range: 8.4-10.2 mg/dL) * Lab:Ferritin * Collection Date 04/14/2025 05/06/2022 10/16/2021 Collection Time 09:50 AM 11:22 AM 04:12 PM Order Date 04/14/2025 05/06/2022 10/16/2021 Ferritin 911 H (Ref Range: 20-250 ng/mL) 363 H (Ref Range: 20-250 ng/mL) 582 H (Ref Range: 20-250 ng/mL) * Examination: G eneral Examination: GENERAL APPEARANCE: p leasant, well nourished, well developed, in no acute distress, calm and relaxed: elderly man. HEAD: a traumatic, normocephalic. EYES: [...] normal, no ascites, no organomegaly, no mass, intact rlq urostomy with clear yellow urine. RECTAL EXAM: n ot examined. MUSCULOSKELETAL: e xtremities unremarkable, no clubbing, cyanosis or edema. PERIPHERAL PULSES: n ormal. NEUROLOGIC: a lert and oriented, cranial nerves 2-12 grossly intact, deep tendon reflexes 2+ symmetrical, motor strength normal upper and lower extremities, sensory exam intact. PSYCH: a lert, oriented: cognitive function intact: cooperative with exam: good eye contact: judgement and insight good: speech clear: thought process logical, goal directed. Assessment: * Assessment: 1. C irrhosis of liver without ascites, unspecified hepatic cirrhosis type - K74.60 (Primary)? Notes :On the MRI of the liver has been done by his insulation blower, Dr. Burnett. It showed thickening of the renal pelvis which will be referred to urology. It also showed 2 enhancing masses in the liver 1 being 1.1 cm equivocal for hepatocellular carcinoma. This is being followed. An alpha-fetoprotein will be obtained.A repeat MRI has been scheduled. 2 . H TN (hypertension) - I10 N otes :His blood pressure is currently stable at 137/49 and no change in his regimen is needed today. 3 . A sthma - J45.909 N otes :He reports no difficulty with breathing since his last visit. He tolerated the hot weather of the summer without difficulty. 4 . A nemia - D64.9 N otes :His hematocrit is slightly lower, but he had a recent episode of bleeding which required hospitalization. His ferritin is rising. His iron supplementation has been stopped. This will be observed. 5 . D iabetes mellitus - E11.9 N otes :Is A1c was quite low and primary care has discontinued his ddiabetic medications. His current fasting glucose is 111. 6 . H ypothyroid - E03.9 N otes :He remains euthyroid. No change in his medication was needed. 7 . U rothelial carcinoma - C68.9 N otes :There is no sign of recurrent disease at this time. The ileostomy is functioning well.He was hospitalized recently for bleeding into the urostomy but this has resolved and no serious cause was found. 8 . I leostomy in place - Z93.2 N otes :The urine in the bag appeared to be completely normal. He has had no bleeding. The ostomy is functioning well. 9 . B enign prostatic hyperplasia with lower urinary tract symptoms - N40.1? Notes :He rises from sleep once or twice a night to urinate depending upon fluid intake. We reviewed lifestyle modification she could make to reduce nocturia. Plan: * Treatment: * Imaging: * I maging: MRI ABD W&WO CONTRAST * Procedure Codes: * Preventive Medicine: DM Care Plan: P atient Lifestyle Goals P atient wants to be able to manage diabetes without too much effort. T reatment Goals H bA1C < 7.0, Blood Sugars less than < 115. B arriers n o barriers. S elf-Managment Goals I ncrease exercise to 3 times a week for 30 mins. * Follow Up: 7 months (Reason: OV) * Images: * Sign off status: Completed true * Provider: Yahaira Ziegler MD Date: 0 05/04/2025 Generated for Ana cabrera/Linden/eTransmitting on: 08/22/2024 06:11 AM EST History and Physical Notes * HPI (History of Present Illness) Category Sub-Category Detail Notes COVID-19 Screening Questions Have you had any new onset fever, chills, cough, congestion, sore throat, shortness of breath, muscle aches?: No Examination Category Sub-Category Detail Notes General Examination GENERAL APPEARANCE: pleasant , well nourished, well developed, in no acute distress, calm and relaxed: elderly man HEAD: atraumatic, normocep halic EYES: eomi, perrla, anicte tay, conjugate EARS: normal NOSE: septum intact NECK/THYROID: no jugular venous di stention, no carotid bruit, thyroid normal HEART: no clicks, gallops, murmurs, or rubs, regular rhythm, S1, S2 normal, no s3, or vascular bruits LUNGS: clear to auscultatio n ABDOMEN: bowel sounds normal, no ascites, no organomegaly, no mass, intact rlq urostomy with clear yellow urine NEUROLOGIC: alert and oriented, cranial nerves [...] normal RECTAL EXAM: not examined PSYCH: alert, oriented: cog nitive function intact: cooperative with exam: good eye contact: judgement and insight good: speech clear: thought process logical, goal directed ORAL CAVITY: normal, unremarkable
--- OUTSIDE RECORDS SUMMARY | 2025-05-05 03:10 | XMS_ITS ---
Author Organization [facility] Address [address] [facility] [address] [place] [address] Care Team Providers Care Clinical Lab Clerk Name Role Phone Hilary Jimenez Primary Care Provider Unavailab Joe Hardy Jr REASON FOR VISIT abnormal ct scan Encounters Encounter Location Date Provider Diagnosis [facility] Outpatient [address] [place] [id number] 05/05/2025 Joe Burnett Jr Plan Of Treatment Next Appt Details Provider Name:Joe estrada Jr, 05/24/2026 01:35:00 PM, [address] [facility], [address], [place], [address], Progress Notes * Zehra AGOSTO KDOB: (75 yo M)Acc No.[id number]:05/05/2025 EGD and COL/MAC Patient: Vance MCCLOUD Zehra Sheehan Provider: Symone Burnett MD :1950 A ge:75 Y S ex:Male Date:05/05/2025 Address:[address] [place] [address] Pcp:Hilary Jimenez Subjective: * Chief Complaints: * [...] 0 05/05/2025 Generated for Ana cabrera/Linden/Nigel on: 08/22/2024 06:10 AM EST
--- OUTSIDE RECORDS SUMMARY | 2025-05-12 06:40 | XMS_ITS ---
Author Organization [facility] Address [address] [place] [address] Care Team Providers Care Diet Consultant Name Role Phone Hilary Jimenez Primary Care Provider Unavailab Joe Hardy Jr [phone] REASON FOR VISIT abnormal ct scan Medications Medication SIG (Take, Route, Frequency, Duration) Notes Start Date End Date Status metFORMIN HCl 500 MG TAKE 2 TABLETS BY M OUTH EVERY DAY Oral; Duration: 90 Active Albuterol Sulfate 108 (90 Base) MCG/ACT 1 puff as needed Inhalation every 4 hrs Active Atorvastatin Calcium 10 MG 1 tablet Oral ly Once a day; Duration: 30 day(s) Active Montelukast Sodium 10 MG 1 tablet Orally Once a day; Duration: 30 day(s) Active Folic Acid 1 MG Oral; Duration: 30 Active Iron (Ferrous Sulfate) 325 (65 Fe) MG 1 tablet Orally Three times a Week; Duration: 30 day(s) Active Vitamin C 1000 MG 1 tablet Orally Once a day; Duration: 30 day(s) Active Telmisartan 20 MG 1 tablet Orally Once a day Active Dulcolax Active Januvia 50 MG as directed Orally O nce a day Active Vitamin B Complex - as directed Orally Active Encounters Encounter Location Date Provider Diagnosis [facility] [place] [address] [place], [place] [id number] 05/12/2025 Joe Burnett Jr Plan Of Treatment Next Appt Details Provider Name:Joe estrada Jr, 05/24/2026 01:35:00 PM, [address], [address], [place], [address], Progress Notes * Zehra AGOSTO KDOB: (75 yo M)Acc No.[id number]:05/12/2025 EGD and COL/MAC Patient: Zehra GALICIA Provider: Symone Burnett MD :1950 A ge:75 Y S ex:Male Date:05/12/2025 Address:[address] [place], [place] [id number] Pcp:Hilary Jimenez Subjective: * Chief Complaints: * [address]. * Medical History: * Medications: T aking Vitamin B Complex - Capsule as directed Orally , Taking Iron (Ferrous Sulfate) 325 (65 Fe) MG Tablet 1 tablet Orally Three times a Week , Taking Vitamin C 1000 MG Tablet 1 tablet Orally Once a day , Taking Telmisartan 20 MG Tablet 1 tablet Orally Once a day , Taking Dulcolax , Taking Januvia 50 MG Tablet as directed Orally Once a day , Taking Albuterol Sulfate 108 (90 Base) MCG/ACT Aerosol Powder Breath Activated 1 puff as needed Inhalation every 4 hrs , Taking Atorvastatin Calcium 10 MG Tablet 1 tablet Orally Once a day , Taking Montelukast Sodium 10 MG Tablet 1 tablet Orally Once a day , Taking Folic Acid 1 MG Tablet Oral , Taking metFORMIN HCl 500 MG Tablet TAKE 2 TABLETS BY MOUTH EVERY DAY Oral Objective: * Vitals: Assessment: Plan: * Treatment: * * The named appointment provid er may or may not be the originator of this progress note, and it is not deemed complete until electronically signed by the appointment provider. Sign off status: Pending * Provider: Symone Burnett MD Date: Generated for Ana cabrera/Linden/Reneeitting on: 08/22/2024 06:10 AM EST
--- OUTSIDE RECORDS SUMMARY | 2025-06-05 08:29 | XMS_ITS ---
Author Organization Darrian Ziegler III, MD Address [address] [place] [address] [place] [address] Care Team Providers Care School Manager Name Role Phone Tony PINK, [facility] Primary Care Provider Dr. Darrian Smith III Unavailable REASON FOR VISIT AFP Lab/referral to [facility] gastro Encounters Encounter Location Date Provider Diagnosis Darrian Ziegler III, MD [address] [place] [address] [place] [address] 06/05/2025 Darrian Ziegler Cirrhosis of liver without ascites, unspecified hepatic cirrhosis type K74.60 Assessments Encounter Date Diagnosis (ICD Code) Assessment Notes Treat ment Notes Treatment Clinical Notes 06/05/2025 Cirrhosis of liver without ascites, unspecified hepatic cirrhosis type (ICD-10 - K74.60) Plan Of Treatment Pending Test Test Name Order Date ALPHA-FETOPROTEIN,TUMOR MARKER Next Appt Details Provider Name:Darrian Ziegler , 12/11/2025 02:00:00 PM, [address] [place] [address] [address] [place], [address], Progress Notes * Candelario AGOSTOchandu KDOB: (75 yo M)Acc No.[id number]:06/05/2025 Patient: Zehra GALICIA :1950 A ge:75 Y S ex:Male Phone: Address:[address] [place] [address], [address] Subjective: * Chief Complaints: * A FP Lab/referral to [facility] gastro * Medical History: * Surgical History: * Hospitalization/Major Diagno stic Procedure: * Medications: Objective: * Vitals: * Physical Examination: Assessment: * Assessment: 1. C irrhosis of liver without ascites, unspecified hepatic cirrhosis type - K74.60 ? Plan: * Treatment: * Procedure Codes: * true * Date: Generated for Ana cabrera/Linden/Nigel on: 08/22/2024 06:11 AM EST
--- OUTSIDE RECORDS SUMMARY | 2025-06-13 09:15 | XMS_ITS ---
Author Organization Darrian Ziegler III, MD Address [address] [place] [place] [address] Care Team Providers Care Color Stripper Name Role Phone Tony PINK, [facility] Primary Care Provider Dr. Darrian Smith III Unavailable [phone] Allergies Allergen (clinical drug ingredient) Drug/Non Drug Allergy documented on EMR Reaction Allergy Type Onset Date Status aspirin Aspirin Unknown Drug Allergy Active Motrin Unknown Drug Allergy Active REASON FOR VISIT Rising alpha-fetoprotein, Enlarging liver mass section VIII, Possible hepatocellular carcinoma, Cirrhosis of the liver Medications Medication SIG (Take, Route, Frequency, Duration) Notes Start Date End Date Status Montelukast Sodium 10 MG 1 tablet Orally Once a day Active Atorvastatin Calcium 10 MG 1 tablet Oral ly Once a day Active Albuterol Sulfate HFA 108 (90 Base) MCG/ACT Inhalation Active Folic Acid 1 MG 1 tablet Orally Once a day 01/31/2025 Active Symbicort 160-4.5 MCG/ACT as directed Inhalation Active Telmisartan 20 MG 1 tablet Orally Once a day Active Iron (Ferrous Sulfate) 325 (65 Fe) MG 1 tablet Orally Once a day Active Social History Tobacco Use: Social History Observation Description Date Details (start date - stop date) Never Smoker NA - NA Tobacco Use/Smoking Question Answer Notes Patient is a nonsmoker Additional Findings: Tobacco Non-User Aggressive non-smoker Problems Problem Type SNOMED Code ICD Code Onset Dates Problem Status W/U Status Risk Notes Problem [id number] Elevated alpha-fetop rotein (R77.2) Active confirmed The radiologist read the recent MRI of the liver as showing a probableHCC. The elevated ferritin is probably from the liver disease itself. The diameter of the mass has doubled recently. He is being referred to [facility] gastroenterology for definitive diagnosis and treatment. Vital Signs Temperature 97.5 degrees Fahrenheit 06/13/20 25 Blood pressure systolic 132 mm Hg 06/13/20 25 Blood pressure diastolic 74 mm Hg 025 Heart Rate 93 /min 06/13/2025 Height 61 in 06/13/2025 Weight 131 lbs 06/13/2025 BMI 24.75 kg/m2 06/13/2025 Encounters Encounter Location Date Provider Diagnosis Darrian Ziegler III, MD [address] [place] [address] [place] [address] 06/13/2025 Darrian Ziegler HTN (hypertension) I 10 ; Elevated alpha-fetoprotein R77.2 ; Asthma J45.909 ; Diabetes mellitus E11.9 ; Ileostomy in place Z93.2 ; Cirrhosis of liver without ascites, unspecified hepatic cirrhosis type K74.60 ; Benign prostatic hyperplasia with lower urinary tract symptoms N40.1 ; Hypothyroid E03.9 and Urothelial carcinoma C68.9 Assessments Encounter Date Diagnosis (ICD Code) Assessment Notes Treatment Notes Treatment Clinical Notes 06/13/2025 HTN (hypertension) (ICD-10 - I10) His blood pressure is currently stable and no change in his regimen is needed today. 06/13/2025 Elevated alpha-fetoprotein (ICD-10 - R77.2) The radiologist read the recent MRI of the liver as showing a probableHCC. The elevated ferritin is probably from the liver disease itself. The diameter of the mass has doubled recently. He is being referred to [facility] gastroenterology for definitive diagnosis and treatment. 06/13/2025 Asthma (ICD-10 - J45.909) He reports no difficulty with breathing since his last visit. He tolerated the hot weather of the summer without difficulty. 06/13/2025 Diabetes mellitus (ICD-10 - E11.9) Is A1c was quite low and primary care has discontinued his ddiabetic medications. His current fasting glucose is 111. 06/13/[address] (ICD-10 - Z93.2) The urine in the bag appeared to be completely normal. He has had no bleeding. The ostomy is functioning well. 06/13/2025 Cirrhosis of liver without ascites, unspecified hepatic cirrhosis type (ICD-10 - K74.60) On the MRI of the liver has been done by his early childhood specialist, Dr. Burnett. It showed thickening of the renal pelvis which will be referred to urology. It also showed 2 enhancing masses in the liver 1 being 1.1 cm equivocal for hepatocellular carcinoma. This is being followed. An alpha-fetoprotein will be obtained.A repeat MRI has been scheduled. 06/13/2025 Benign prostatic hyperplasia with lower urinary tract symptoms (ICD-10 - N40.1) He rises from sleep once or twice a night to urinate depending upon fluid intake. We reviewed lifestyle modification she could make to reduce nocturia. 06/13/2025 Hypothyroid (ICD-10 - E03.9) He remains euthyroid. No change in his medication was needed. 06/13/2025 Urothelial carcinoma (ICD-10 - C68.9) There is no sign of recurrent disease at this time. The ileostomy is functioning well.He was hospitalized recently for bleeding into the urostomy but this has resolved and no serious cause was found. Plan Of Treatment Medication Medication Name Sig Start Date Stop Date Notes Montelukast Sodium 10 MG 1 tablet Orally Once a day Atorvastatin Calcium 10 MG 1 tablet Orally Once a day Albuterol Sulfate HFA 108 (9 0 Base) MCG/ACT Inhalation Folic Acid 1 MG 1 tablet Orally Once a day 01/31/2025 Symbicort 160-4.5 MCG/ACT as directed Inhalation Telmisartan 20 MG 1 tablet Orally Once a day Iron (Ferrous Sulfate) 325 ( 65 Fe) MG 1 tablet Orally Once a day Next Appt Details Follow Up: 1 Week, Reason: O V Provider Name:Darrian Ziegler , 12/11/2025 02:00:00 PM, [address] [place] [address], [address], Progress Notes * AGOSTOZehra KDOB: (75 yo M)Acc No.[id number]:06/13/2025 Progress Notes Patient: Zehra GALICIA Provider: Yahaira Ziegler MD :1950 A ge:75 Y S ex:Male Date:06/13/2025 Phone: Address:[address] [place] [phone] Pcp:Hilary Jmienez MD Subjective: * Chief Complaints: * R ising alpha-fetoproteinEnlarging liver mass section VIIIPossible hepatocellular carcinomaCirrhosis of the liver * HPI: C OVID-19 Screening: He returns to discuss the results of his MRI and recent blood work. His alpha-fetoprotein which began at 4.9 is now 10.6. The mass in section 8 of the liver has increased from 1.1-2.2 cm. He is being referred to [facility] gastroenterology for definitive diagnosis and treatment of a possible hepatocellular carcinoma. He is aware of the diagnosis and we have discussed various options for diagnosis and treatment. Questions H ave you had any new [...] enies. D iarrhea d enies. H eartburn d enies. N ausea d enies. R ectal bleeding [...] non-smoker Quentin olivares was born in [facility] and now lives in [place], [place]. He is and has several children. He is currently retired. * Medications: T akingTelmisartan 20 MG Tablet 1 tablet Orally Once a day Iron (Ferrous Sulfate) [...] 108 (90 Base) MCG/ACT Aerosol Solution Inhalation Medication List reviewed and reconciled with the patientTaking Telmisartan 20 MG Tablet 1 tablet Orally Once a day Taking Iron (Ferrous Sulfate) 325 (65 Fe) MG Tablet 1 tablet Orally Once a day Taking Montelukast Sodium 10 MG Tablet 1 tablet Orally Once a day Taking Atorvastatin Calcium 10 MG Tablet 1 tablet Orally Once a day Taking Folic Acid 1 MG Tablet 1 tablet Orally Once a day Taking Symbicort 160- 4.5 MCG/ACT Aerosol as directed Inhalation Taking Albuterol Sulfate HFA 108 (90 Base) MCG/ACT Aerosol Solution Inhalation Medication List reviewed and reconciled with the patient * Allergies: Luke Santos[Allergies Verified] Objective: * Vitals: H t: 61, Wt:131, BMI:24.75, BP:132/74, HR:93, Temp:97.5, Wt-k.42. * P ast Orders: I maging:SCREENING COLONOSCOPY (Order Date - 05/12/2025) Result: undefined Lab:Prostate Specific Antige n * Collection Date [...] mg/dL) 54 (Ref Range: >40 mg/dL) * Lab:Ferritin * Collection Date 04/14/2025 05/06/2022 10/16/2021 Collection Time 09:50 AM 11:22 AM 04:12 PM Order Date 04/14/2025 05/06/2022 10/16/2021 Ferritin 911 H (Ref Range: 20-250 ng/mL) 363 H (Ref Range: 20-250 ng/mL) 582 H (Ref Range: 20-250 ng/mL) * Lab:Comprehensive [place]. Pane l Fast * Collection Date 04/14/2025 01/26/2025 [...] mg/dL) 9.3 (Ref Range: 8.4-10.2 mg/dL) * Lab:Alpha Fetoprotein * Collection Date 06/06/2025 04/14/2025 Collection Time 02:13 PM 09:50 AM Order Date 06/06/2025 04/14/2025 Alpha Fetoprotein 10.6 A (Ref Range: <6.1 ng/mL) 7.9 A (Ref Range: <6.1 ng/mL) * Lab:Complete Blood Count Aut o [...] X10*3/uL) 0.000 (Ref Range: 0.0-0.012 X10*3/uL) * Lab:Folate * Collection Date 04/14/2025 05/11/2023 05/06/2022 Collection Time 09:50 AM 10:09 AM 11:22 AM Order Date 04/14/2025 05/11/2023 05/06/2022 Folate 16.3 (Ref Range: > or = 4.0 ng/mL) 16.6 (Ref Range: > or = 4.0 ng/mL) > 20.0 (Ref Range: > or = 4.0 ng/mL) ???Lab:Basic Metabolic Panel (Order Date - 06/06/2025) (Collection Date & Time - 06/06/2025 02:13 PM)?ValueReference Range?[id number] - mmol/L?Blood Urea Itllxumt14Z7-79 - mg/dL?Creatinine1.300.5-1.4 - mg/dL?Glucose Jxpohz893A92-170 - mg/dL?Calcium9.38.4-10.2 - mg/dL ?Potassium4.03.3-5.1 - mmol/L?Zkvxvgbj949X41-348 - mmol/L ?Carbon Tenpjrm63O99-58 - mmol/L?Anion Erm5P57-45 - ?Estimated Glomerular Filt Rate54- * Examination: G eneral Examination: GENERAL APPEARANCE: p allyn, well nourished, well developed, in no acute distress, calm and relaxed: man. HEAD: a traumatic, normocephalic. EYES: e [...] normal, no ascites, no organomegaly, no mass, Liver edge not palpable,, Ostomy present without leaks. RECTAL EXAM: n ot examined. MUSCULOSKELETAL: e xtremities unremarkable, no clubbing, cyanosis or edema. PERIPHERAL PULSES: n ormal. NEUROLOGIC: a lert and oriented, cranial nerves 2-12 grossly intact, deep tendon reflexes 2+ symmetrical, motor strength normal upper and lower extremities, sensory exam intact. PSYCH: a lert, oriented. Assessment: * Assessment: 1. E levated alpha-fetoprotein - R77.2 (Primary) N otes :The radiologist read the recent MRI of the liver as showing a probableHCC. The elevated ferritin is probably from the liver disease itself. The diameter of the mass has doubled recently. He is being referred to [facility] gastroenterology for definitive diagnosis and treatment. 2 . H TN (hypertension) - I10 N otes :His blood pressure is currently stable and no change in his regimen is needed today. 3 . A sthma - J45.909 N otes :He reports no difficulty with breathing since his last visit. He tolerated the hot weather of the summer without difficulty. 4 . D iabetes mellitus - E11.9 N otes :Is A1c was quite low and primary care has discontinued his ddiabetic medications. His current fasting glucose is 111. 5 . I leostomy in place - Z93.2 N otes :The urine in the bag appeared to be completely normal. He has had no bleeding. The ostomy is functioning well. 6 . C irrhosis of liver without ascites, unspecified hepatic cirrhosis type - K74.60 N otes :On the MRI of the liver has been done by his early childhood specialist, Dr. Burnett. It showed thickening of the renal pelvis which will be referred to urology. It also showed 2 enhancing masses in the liver 1 being 1.1 cm equivocal for hepatocellular carcinoma. This is being followed. An alpha-fetoprotein will be obtained.A repeat MRI has been scheduled. 7 . B enign prostatic hyperplasia with lower urinary tract symptoms - N40.1? Notes :He rises from sleep once or twice a night to urinate depending upon fluid intake. We reviewed lifestyle modification she could make to reduce nocturia. 8 . H ypothyroid - E03.9 N otes :He remains euthyroid. No change in his medication was needed. 9 . U rothelial carcinoma - C68.9 N otes :There is no sign of recurrent disease at this time. The ileostomy is functioning well.He was hospitalized recently for bleeding into the urostomy but this has resolved and no serious cause was found. Plan: * Treatment: * Procedure Codes: * Preventive Medicine: DM Care Plan: P atient Lifestyle Goals P atient wants to be able to manage diabetes without too much effort. T reatment Goals B lood Sugars less than < 115, HbA1C < 7.0. B arriers n o barriers. S elf-Managment Goals T alexandra blood sugars twice daily and keep a log. Bring log in to next appointment, Stop drinking juice and/or soda, replace with more water. * Follow Up: 1 Week (Reason: OV) * Images: * Sign off status: Completed true * Provider: Yahaira Ziegler MD Date: 08/13/2024 Generated for Ana cabrera/Linden/Reneeitting on: 08/22/2024 06:09 AM EST History and Physical Notes * HPI (History of Present Illness) Category Sub-Category Detail Notes COVID-19 Screening Questions Have you had any new onset fever, chills, cough, congestion, sore throat, shortness of breath, muscle aches?: No Examination Category Sub-Category Detail Notes General Examination GENERAL APPEARANCE: pleasant , well nourished, well developed, in no acute distress, calm and relaxed: man HEAD: atraumatic, normocep halic EYES: eomi, perrla, anicte tay, conjugate EARS: normal NOSE: septum intact NECK/THYROID: no jugular venous di stention, no carotid bruit, thyroid normal HEART: no clicks, gallops, murmurs, or rubs, regular rhythm, S1, S2 normal, no s3, or vascular bruits LUNGS: clear to auscultatio n ABDOMEN: bowel sounds normal, no ascites, no organomegaly, no mass, Liver edge not palpable,, Ostomy present without leaks NEUROLOGIC: alert and oriented, cranial nerves 2-12 [...]
--- OUTSIDE RECORDS SUMMARY | 2025-06-21 04:19 | XMS_ITS ---
Author Organization Darrian Ziegler III, MD Address [address] [place] [address] [place] [address] Care Team Providers Care Cold Mill Supervisor Name Role Phone Tony PINK, [facility] Primary Care Provider Dr. Darrian Smith III Unavailable [phone] REASON FOR VISIT Patient in ED Encounters Encounter Location Date Provider Diagnosis Darrian Ziegler III, MD [address] [place] [address] [place] [address] 06/21/2025 Darrian Ziegler Plan Of Treatment Next Appt Details Provider Name:Darrian Ziegler , 12/11/2025 02:00:00 PM, [address] [place] [address] [address], [place], [address], Progress Notes * Candelario AGOSTOguydonn KDOB: (75 yo M)Acc No.[id number]:06/21/2025 Patient: Zehra GALICIA :1950 A ge:75 Y S ex:Male Phone: Address:[address] [place] [address], [phone] * true * Date: Generated for Printi deborah/Dipeshg/eTransmitting on: 08/22/2024 06:11 AM EST
--- OUTSIDE RECORDS SUMMARY | 2025-06-21 12:00 | XMS_ITS ---
Author Organization Darrian Ziegler III, MD Address [address] [place] [address] [place] [address] Care Team Providers Care Commercial Construction Estimator Name Role Phone Tony PINK, [facility] Primary Care Provider Dr. Darrian Smith III Unavailable Allergies Allergen (clinical drug ingredient) Drug/Non Drug Allergy documented on EMR Reaction Allergy Type Onset Date Status aspirin Aspirin Unknown Drug Allergy Active Motrin Unknown Drug Allergy Active REASON FOR VISIT Follow up Medications Medication SIG (Take, Route, Frequency, Duration) Notes Start Date End Date Status Folic Acid 1 MG 1 tablet Orally Once a day 01/31/2025 Active Atorvastatin Calcium 10 MG 1 tablet Oral ly Once a day Active Montelukast Sodium 10 MG 1 tablet Orally Once a day Active Albuterol Sulfate HFA 108 (90 Base) MCG/ACT Inhalation Active Symbicort 160-4.5 MCG/ACT as directed Inhalation [...] nonsmoker Additional Findings: Tobacco Non-User Aggressive non-smoker Encounters Encounter Location Date Provider Diagnosis Darrian Ziegler III, MD [address] [place] [address] [place] [address] 06/21/2025 Darrian Ziegler HTN (hypertension) I10 Assessments Encounter Date Diagnosis (ICD Code) Assessment Notes Treatment Notes Treatment Clinical Notes 06/21/2025 HTN (hypertension) (ICD-10 - I10) His blood pressure is currently stable and no change in his regimen is needed today. Plan Of Treatment Medication Medication Name Sig Start Date Stop Date Notes Folic Acid 1 MG 1 tablet Orally Once a day 01/31/2025 Atorvastatin Calcium 10 MG 1 tablet Orally Once a day Montelukast Sodium 10 MG 1 tablet Orally Once a day Albuterol Sulfate HFA 108 (9 0 Base) MCG/ACT Inhalation Symbicort 160-4.5 MCG/ACT as directed Inhalation Telmisartan 20 MG 1 tablet Orally Once a day Iron (Ferrous Sulfate) 325 ( 65 Fe) MG 1 tablet Orally Once a day Next Appt Details Provider Name:Darrian Olivares Toney , 12/11/2025 02:00:00 PM, [address] [place] [address], [place] [address], [place], [address], Progress Notes * AGOSTO, Zehra KDOB: (75 yo M)Acc No.[id number]:06/21/2025 Progress Notes Patient: Zehra GALICIA Provider: Yahaira Ziegler MD :1950 A ge:75 Y S ex:Male Date:06/21/2025 Phone: Address:[address] [place] [phone] Pcp:Hilary Jimenez MD Subjective: * Chief Complaints: [...] born in [place] and now lives in [place], [place]. He is and has several children. [...] Allergies: M otrin, Aspirin. Objective: * Vitals: * Examination: G eneral Examination: GENERAL APPEARANCE: [...] is needed today. Plan: * Treatment: * Images: * The named appointment provid er may or may not be the originator of this progress note, and it is not deemed complete until electronically signed by the appointment provider. Sign off status: Pending * Provider: Yahaira Ziegler MD Date: 08/21/2024 Generated for Vishali deborah/Linden/Nigel on: 08/22/2024 06:09 AM EST History and [...]
[2025-06-22 05:32] VITALS: BP 145/65; PULSE 70; RESP 20; TEMP 36.4; O2SAT 99; BMI 21.6
--- OUTSIDE RECORDS SUMMARY | 2025-06-22 06:10 | XMS_ITS | Patient Health Record ---
Author Organization [facility] Address [address] [place] [address] Care Team Providers Care Conference Planning Manager Name Role Phone Hilary Boss Primary Care Provider Unavailab Joe Hardy Jr Unavailable [phone] Allergies Allergen (clinical drug ingredient) Drug/Non Drug Allergy documented on EMR Reaction Allergy Type Onset Date Status ibuprofen Ibuprofen Unknown Drug Allergy Active aspirin Aspirin Unknown Drug Allergy Active Substance with beta adrenergic receptor antagonist mechanism of action (substance) beta blockers (uncoded) Unknown Allergy Active Results Component Value Reference Range Notes Glucose, Whole Blood Reviewed date:05/15/2025 01:35:07 PM Interpretation: Performing Lab:[facility], [address] [place] [phone] Notes/Report: Glucose, Whole Blood 119 60-115 mg/dL METER # : [id number] Pathology Reviewed date:05/16/2025 02:20:44 PM Interpretation: Performing Lab:[facility], [address] [place] [phone] Notes/Report: Reason For Referral Referring Provider First Name Hilary Referring Provider Last Name Tony Referring Provider Speciality Internal M edicine Referred Organization [facility] Referred Provider Joe Echavarria Jr Referred Address [address] [facility],[address],[place], [place],[address], Referred Provider Specialty Gastroentero logy General Notes Brooklyn Barkley 2024 10:14:44 AM > REQUESTED HERACLIO REFEFFAL FROM DR BOSS'S OFFICE FOR VISIT WITH DR ECHAVARRIA ON 02-15-25Rubia Dawn 02/15/2025 11:39:50 AM >no referral required since patient is in the same [place] of care Referral Priority Routine Medications Medication [...] Risk Notes Problem Oesophageal varices without bleeding (29344927) Secondary esophageal varices without bleeding (I85.10) Active confirmed Problem Portal hypertension (46978245) Portal hypertension (K76.6) Active confirmed Problem Liver mass (825379936) Liver mass (R16.0) Active confirmed Problem Lesion of liver (153792096) Liver lesion (K76.9) Active confirmed Problem Abnormal findings diagnostic imaging of liver and biliary tract (064955206) Abnormal CT scan, liver (R93.2) Active confirmed 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 [address] [place] [address] 02/15/2025 Joe Echavarria Jr Abnormal findings in stool R19.5 [facility] [address] [place] [address] 12/26/[address] [facility] [address] [place] [phone] 02/28/[address] [facility] [address] [place] [address] 02/28/[address] [facility] [address] [place] [phone] 03/30/[address] [facility] [address] [place] [phone] 04/24/[address] [facility] [address] [place] [address] 05/04/[address] [facility] [address] [place] [phone] 05/16/2025 Joe Echavarria Jr Assessments Encounter Date [...] Name:Joe estrada , 05/24/2026 01:35:00 PM, [address] [facility], [address], [place], [address], Insurance Providers Payer Name Payer Address Payer Phone Subscriber Number Group Number Insured Name Patient Relationship to Insured Coverage Start Date Coverage End Date [facility] [address] ADEOLA Fisher [phone] [id number] Alexia Agosto Self - patient is the insured MEDICAID OF [facility] [address] [place] [phone] [id number] Alexia Agosto Self - patient is the insured Medical (General) History Medical History History ICD Code diabetes asthma Hypertension Bladder cancer Cirrhosis, likely secondary to fatty lonnie er, compensated Surgical History Surgery Date(Month/Year) bladder cancer Radical cystectomy, ileal conduit Hospitalization History Reason Date(Month/Year)
--- OUTSIDE RECORDS SUMMARY | 2025-06-22 06:10 | XMS_ITS | Patient Health Record ---
Author Organization Darrian Ziegler III, MD Address [address] [place] [address] [place] [address] Care Team Providers Care Drop Crew Laborer Name Role Phone Tony PINK, [facility] Primary Care Provider Dr. Darrian Smith III Unavailable Allergies Allergen (clinical drug ingredient) Drug/Non Drug Allergy documented on EMR Reaction Allergy Type Onset Date Status aspirin Aspirin Unknown Drug Allergy Active Motrin Unknown Drug Allergy Active Results Component Value Reference Range Notes Complete Blood Count Auto Di ff Reviewed date:01/27/2025 01:46:19 PM Interpretation: Performing Lab:[facility], [address] [place] [phone] Notes/Report: White Blood Count 7.4 4.8-10.8 X10*3/uL [...] Auto 0.000 0.0-0.012 X10*3/uL CORRECTED REPORT Comprehensive [place]. Panel Fa st Reviewed date:01/27/2025 01:46:19 PM Interpretation: Performing Lab:[facility], [address] [place] [phone] Notes/Report: Sodium 138 135-145 mmol/L Potassium 4.2 [...] Panel Reviewed date:01/27/2025 01:46:19 PM Interpretation: Performing Lab:[facility], [address] [place] [phone] Notes/Report: Triglycerides 95 <150 mg/dL Desirable Triglyceride: [...] Antigen Reviewed date:01/27/2025 01:46:19 PM Interpretation: Performing Lab:[facility], [address] [place] [phone] Notes/Report: Prostate Specific Antigen < 0.10 <0.05-4.0 ng/mL PSA methodology: Rodriguez Alinity i Chemiluminescent Microparticle Immunoassay (CMIA) SLIDE REVIEW Reviewed date:01/27/2025 01:46:19 PM Interpretation: Performing Lab:[facility], [address] [place] [phone] Notes/Report: SLIDE REVIEW VERIFIED Complete Blood Count Auto Di ff Reviewed date:01/27/2025 01:46:19 PM Interpretation: Performing Lab:[facility], [address] [place] [phone] Notes/Report: White Blood Count 7.4 4.8-10.8 X10*3/uL [...] ff Reviewed date:04/17/2025 09:18:18 AM Interpretation: Performing Lab:[facility], [address] [place] [phone] Notes/Report: White Blood Count 5.9 4.8-10.8 X10*3/uL [...] NRBC Abs Auto 0.000 0.0-0.012 X10*3/uL Comprehensive [place]. Panel Fa st Reviewed date:04/17/2025 09:18:18 AM Interpretation: Performing Lab:[facility], [address] [place] [phone] Notes/Report: Sodium 137 135-145 mmol/L Potassium 4.5 [...] Ferritin Reviewed date:04/17/2025 09:18:18 AM Interpretation: Performing Lab:[facility], [address] [place] [phone] Notes/Report: Ferritin 911 20-250 ng/mL Lipid Panel Reviewed date:04/17/2025 09:18:18 AM Interpretation: Performing Lab:[facility], [address] [place] [phone] Notes/Report: Triglycerides 104 <150 mg/dL Desirable Triglyceride: [...] Antigen Reviewed date:04/17/2025 09:18:18 AM Interpretation: Performing Lab:[address] [phone] Notes/Report: Prostate Specific Antigen < 0.10 <0.05-4.0 ng/mL PSA methodology: Rodriguez Alinity i Chemiluminescent Microparticle Immunoassay (CMIA) Folate Reviewed date:04/17/2025 09:18:18 AM Interpretation: Performing Lab:[address] [address] Notes/Report: Folate 16.3 > or = 4.0 ng/mL Reference Values: > or = 4.0 ng/mL < 4.0 ng/mL suggests folate deficiency Methotrexate, aminopterin and folinic acid (leucovorin) are chemotherapeutic agents whose molecular structures are similar to folate; therefore, the [employer] folate assay cannot be used for patients using these drugs. Alpha Fetoprotein Reviewed date:06/04/2025 07:37:22 AM Interpretation: Performing Lab:[address] [address] Notes/Report: Alpha Fetoprotein 7.9 <6.1 ng/mL This test was performed using the [place] chemiluminescent method. Values obtained from different assay methods cannot be used interchangeably. AFP levels, regardless of value, should not be interpreted as absolute evidence of the presence or absence of disease. THIS TEST WAS PERFORMED AT: [facility] [address] [place] [phone] TORSTEN GARG MD SCREENING COLONOSCOPY Reviewed date:06/05/2025 12:38:15 PM Interpretation:undefined Performing Lab: Notes/Report: undefined Basic Metabolic Panel Reviewed date:06/15/2025 03:00:39 PM Interpretation: Performing Lab:[address] [address] Notes/Report: Sodium 137 135-145 mmol/L Potassium 4.0 [...] Fetoprotein Reviewed date:06/15/2025 03:00:39 PM Interpretation: Performing Lab:[address] [address] Notes/Report: Alpha Fetoprotein 10.6 <6.1 ng/mL This test was performed using the Sylvie [place] chemiluminescent method. Values obtained from different assay methods cannot be used interchangeably. AFP levels, regardless of value, should not be interpreted as absolute evidence of the presence or absence of disease. THIS TEST WAS PERFORMED AT: [facility] [address] [place] [phone] TORSTEN GARG MD Reason For Referral Reason cirrhosis of liver enlarging liver Increasing AFP Diagnosis 1 Cirrhosis of liver w ithout ascites, unspecified hepatic cirrhosis type (K74.60) Referral Organization Darrian Ziegler III, MD Referring Provider First Name Darrian Referring Provider Last Name Toney Referring Provider Speciality Internal M edicine Referred Provider [facility], Gastrolinda Bowling Referred Provider Specialty Gastroentero logy General Notes S Kaitlin DEPUTY K 9 06/13 02:42:11 PM >ref/progress note/labs/faxed to [facility] gastroenterology I called spoke to Jacqueline [...] Status W/U Status Risk Notes Problem Asthma (871077255) Asthma (J45.909) Active confirmed He reports no difficulty with breathing since his last visit. He tolerated the hot weather of the summer without difficulty. Problem Anemia (527192257) Anemia (D64.9) Active confirmed His hemat ocrit is slightly lower, but he had a recent episode of bleeding which required hospitalization. His ferritin is rising. His iron supplementation has been stopped. This will be observed. Problem Diabetes mellitus (96915751) Diabetes mellitus (E11.9) Active confirmed Is A1c was quit e low and primary care has discontinued his ddiabetic medications. His current fasting glucose is 111. Problem 960511091 Mixed hyperlipidemia (E78.2) Active confirmed Is currently stable and no change in his treatment is needed. Problem Hypertension (11469000) HTN (hypertension) (I10) Active confirmed His blood pressure is currently stable and no change in his regimen is needed today. Problem Hypothyroid (52122258) Hypothyroid (E03.9) Active confirmed He remains euthyroid. No change in his medication was needed. Problem 179016268 Urothelial carcinoma (C68.9) Active confirmed There is no sig n of recurrent disease at this time. The ileostomy is functioning well.He was hospitalized recently for bleeding into the urostomy but this has resolved and no serious cause was found. Problem 8656153985722 Benign prostatic hyperplasia with lower urinary tract symptoms (N40.1) Active confirmed He rises from sleep once or twice a night to urinate depending upon fluid intake. We reviewed lifestyle modification she could make to reduce nocturia. 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 He has had no bleeding. The ostomy is functioning well. Problem 88838990 Cirrhosis of liver without ascites, unspecified hepatic [...] obtained.A repeat MRI has been scheduled. Problem 708186318 History of tuberculosis (Z86.11) Active confirmed Problem 434683808 Elevated alpha-fetoprote in (R77.2) Active confirmed The radiologist read the recent MRI of the liver as showing a probableHCC. The elevated ferritin is probably from the liver disease itself. The diameter of the mass has doubled recently. He is being referred to [facility] gastroenterology for definitive diagnosis and treatment. Vital Signs Heart Rate 93 /min 06/13/2025 Temperature 97.5 degrees Fahrenheit 06/13/2025 Blood pressure diastolic 74 mm Hg 06/13/2025 Height 61 in 06/13/2025 Blood pressure systolic 132 mm Hg 06/13/2025 Weight 131 lbs 06/13/2025 BMI 24.75 kg/m2 06/13/2025 Encounters Encounter Location Date Provider Diagnosis Darrian Ziegler III, MD [address] [place] [address] [place] [address] 01/31/2025 Darrian Ziegler Urothelial carcinoma C68.9 ; Cirrhosis of liver without ascites, unspecified hepatic cirrhosis type K74.60 ; HTN (hypertension) I10 ; Hypothyroid E03.9 ; Anemia, unspecified type D64.9 ; Benign prostatic hyperplasia with lower urinary tract symptoms N40.1 ; Ileostomy in place Z93.2 and Diabetes mellitus E11.9 Darrian Ziegler III, MD [address] [place] [address] [place] [address] 05/04/2025 Darrian Ziegler HTN (hypertension) I 10 ; Cirrhosis of liver without ascites, unspecified hepatic cirrhosis type K74.60 ; Asthma J45.909 ; Anemia D64.9 ; Diabetes mellitus E11.9 ; Hypothyroid E03.9 ; Urothelial carcinoma C68.9 ; Ileostomy in place Z93.2 and Benign prostatic hyperplasia with lower urinary tract symptoms N40.1 Darrian Ziegler III, MD [address] [place] [address] [place] [address] 06/13/2025 Darrian Ziegler HTN (hypertension) I 10 ; Elevated alpha-fetoprotein R77.2 ; Asthma J45.909 ; Diabetes mellitus E11.9 ; Ileostomy in place Z93.2 ; Cirrhosis of liver without ascites, unspecified hepatic cirrhosis type K74.60 ; Benign prostatic hyperplasia with lower urinary tract symptoms N40.1 ; Hypothyroid E03.9 and Urothelial carcinoma C68.9 Darrian Ziegler III, MD [address] [place] [address] [address] [place] [phone] 06/05/2025 Darrian Ziegler Cirrhosis of liver without ascites, unspecified hepatic cirrhosis type K74.60 Darrian Ziegler III, MD [address] [place] [address] [address] [place] [address] 06/21/2025 Darrian Ziegler Assessments Encounter Date Diagnosis (ICD Code) Assessment Notes Treatment Notes Treatment Clinical Notes 01/31/2025 Urothelial carcinoma (ICD-10 - C68.9) There is no sign of recurrent disease at this time. The ileostomy is functioning well. 01/31/2025 Cirrhosis of liver without ascites, unspecified hepatic cirrhosis type (ICD-10 - K74.60) On the MRI of the liver has been done by his pipe blanks cut off saw operator, Dr. Burnett. It showed thickening of [...] the liver has been done by his pipe blanks cut off saw operator, Dr. Burnett. It showed thickening of [...] doubled recently. He is being referred to [facility] gastroenterology for definitive diagnosis and treatment. [...] the liver has been done by his pipe blanks cut off saw operator, Dr. Burnett. It showed thickening of [...] Name:Darrian Ziegler , 12/11/2025 02:00:00 PM, [address] [place] [address] , [address], [place], [phone], Insurance Providers Payer Name Payer Address Payer Phone Subscriber Number Group Number Insured Name Patient Relationship to Insured Coverage Start Date Coverage End Date [employer] [address] ADEOLA Fisher [phone] [id number] Alexia Agosto Self - patient is the insured MED[place]ID [place] [address] [place] [id number] [phone] Alexia Agosto Self - patient is the insured MEDICARE [place] [address] [place] [address] [phone] [id number] Alexia Agosto Self - patient is the [...]
--- NOTE | 2025-06-22 06:25 | ED_ITS ---
HPI - General Adult General Chief complaint: General Medical Stated complaint: needs IV fluids Time Seen by Provider: 06/22/25 06:12 Source: patient Mode of arrival: ambulatory Limitations: no limitations History of Present Illness HPI narrative: this is a 75 years old the patient presented to emergency department to receive the last dose of gentamicin for sepsis due to Gram-negative sensitive only to gentamicin. He is receiving gentamicin every 36 hour. He has no fever no chills no vomiting, he also was day nose with influenza yesterday place him on Tamiflu. He has a history of bladder cancer with cystectomy and diverting urostomy Onset (ago): day(s) (7) Radiation: non-radiation Severity scale (1-10): 1 Pain Consistency: constant Relieving factors: none Exacerbating factors: none Associated symptoms: denies other symptoms Related Data Home Medications ?Medication ?Instructions ?Recorded ?Confirmed blood sugar diagnostic (FreeStyle #10 ea 04/18/2112/09 Lite Strips) montelukast 10 mg tablet 10 mg PO DAILY 04/18/2106/10 lancets 28 gauge (FreeStyle #100 ea 06/24/21 01/05/24 Lancets) folic acid 1 mg tablet 1 mg PO DAILY 12/10/2106/21 albuterol sulfate 90 mcg/actuation 1 puff PO QID PRN S hortness Of 02/08/22 06/21/25 aerosol inhaler Breath atorvastatin 20 mg tablet 20 mg PO BEDTIME 03/01/25 telmisartan 20 mg tablet 20 mg PO DAILY 03/01/2506/10 bisacodyl 5 mg tablet,delayed 5 mg PO DAILY constipati on 03/21/25 06/21/25 release (Dulcolax (bisacodyl)) ascorbic acid (vitamin C) 1,000 mg 1,000 mg PO DAILY 1 06/21/25 tablet (Vitamin C) Previous Rx's ?Medication ?Instructions ?Recorded urinary bag 10 (Assura Urostomy #10 ea 04/28/25 Pouch) Ceraplus New Image 82522 #30 ea 05/18/25 Ceraplus New Image 60493 #30 ea 05/18/25 Urostomy [place] [address] #30 ea 05/18/25 adhesive tape 1 X 10 yard #120 ea 05/30/25 gauze bandage 4 X 4 #1,200 ea 05/30/25 ostomy supplies (MicroHesive Stoma #60 grams 05/30/25 Paste) gentamicin 120 mg/100 mL in sodium 260 mg (216.6667 mL ) IV Q36H 06/19/25 chloride(iso) intravenous piggyback codeine 7.5 mg-guaifenesin 225 5 ml PO Q6H PRN cough 5 days #473 06/21/25 mg/5 mL oral liquid mL oseltamivir 75 mg capsule (Tamiflu) 75 mg PO BID 5 day s #10 caps 06/21/25 Allergies Allergy/AdvReac Type Severity Reaction Status Date / Time aspirin Allergy Unknown Verified 06/22/25 05:33 Beta-Blockers AdvReac Unknown Verified 06/22/25 05:33 (Beta-Adrenergic Bloc ibuprofen AdvReac Unknown Verified 06/22/25 05:33 Review of Systems Review of Systems: Yes all other systems are reviewed and are negative Constitutional: Constitutional: Reports no additional constitutional complaints [facility] Past Medical History Attestation statement: The following information was validated with the patient. Medical History Aortic stenosis Complication of urostomy History of bladder cancer Abdominal distention Cirrhosis of liver HTN (hypertension) Acute hyponatremia Hydronephrosis Bladder cancer Asthma Diabetes Bladder cancer Incomplete emptying of bladder due to benign prostatic hyperplasia Complicated urinary tract infection Surgical History History of surgery History of ileal conduit Social History Social History Household Members: Spouse, Family and Children Housing: House Are you a primary hospice home care coordinator to a significant other at home: No Do you presently have visiting nurse or other home services: Yes Alcohol intake: never Comment: bedside Patient Tobacco Use Status: Never used Tobacco Smoked in Last 30 Days: No Use of substances other than those prescribed or required for medical reasons: No Advance Directives: No Advance Directives Information Provided: Yes Advance Directives Date on File: 03/12/25 Do you have a plan to hurt others: No Plan service: No Current occupational status: retired Physical Exam ED Exam Exam: he looks well is not toxic-appearing Vital Signs: Vital Signs - 24 hr 06/22/25 05:32 06/22/25 08:10 06/22/25 08:11 Temperature 97.6 F 97.5 F 97.5 F Pulse Rate 70 70 70 Respiratory Rate 20 20 20 Blood Pressure 145/65 H 132/69 132/69 Pulse Oximetry 99 99 99 Oxygen Delivery Method Room Air Room Air Room Air BMI result Body Mass Index 21.6 Const General: cooperative Nutritional Appearance: average body habitus Orientation/consciousness: oriented to time Limitations: no limitations HENMT Head: Yes normal to inspection Ears: hearing grossly normal bilaterally General nose exam: Normal external nose present Face and sinus: Yes normal facial exam Mouth: Normal oral and palatal mucosa present Throat: Yes posterior oropharynx normal Neck Neck: Yes normal visual inspection Chest Chest palpation & inspection: normal inspection of the chest Resp Effort & Inspection: normal respiratory effort Cardio Jugular venous distension: no JVD Rate: regular rate GI Palpation (GI): Soft to palpation, not firm and nontender Auscultation: normal bowel sounds Skin General skin exam: no rashes or lesions noted, elasticity normal and turgor normal Lesions: no lesions Rashes: no rashes Hair: normal Neuro General: oriented to time Extrem General: Yes normal to inspection and Yes full ROM Medications Administered Discontinued Medications Generic Name Dose Route Start Last Admin Trade Name Freq PRN Reason Stop Dose Admin Gentamicin Sulfate 260 mg/ 106.5 mls @ 100 mls/hr 06/22/25 07:00 06/22/25 08:09 Sodium Chloride IV Infused Q36H STEVEN Infusion Medical Decision Making Medical Decision Making [facility] Narrative: patient is here to receive with the last dose of IV gentamicin I spoke with the pharmacist I confirm with the pharmacist Tyler the dose, we will administer gentamicin and plan discharge after Differential Diagnosis Differential Diagnoses: The differential diagnosis associated with the presentation includes UTI/urosepsis Admission/Observation Consideration of admission/observation: Escalation of care including admission/observation considered Consult Healthcare Provider I spoke with the pharmacist Independent Historian Clinical information obtained from an independent historian. History obtained from or confirmed by: Spouse Chronic Conditions Patient?s care impacted by: Cancer bladder ca Discharge Plan Discharge Clinical Impression: Acute UTI Patient Disposition: Home, Self-Care Instructions: Urinary Tract Infection in Men (ED) Prescriptions: No Action (DME) Assura Urostomy Pouch 10 misc See Rx Instructions .Route Qty: 10 4RF Rx Instructions: Item number [id number] (DME) Ceraplus New Image 11845 44mm precut concave wafer See Rx Instructions .Route .MEDSUPPLY Qty: 30 12RF Rx Instructions: As directed (DME) Ceraplus New Image [id number] 44mm precut 32mm wafer See Rx Instructions .Route .MEDSUPPLY Qty: 30 12RF Rx Instructions: As directed (DME) Urostomy [place] 37146 44mm bag See Rx Instructions .Route .MEDSUPPLY Qty: 30 12RF Rx Instructions: As directed change every 3 days. (DME) gauze bandage 4 X 4 bandage See Rx Instructions .Route Qty: 1200 4RF Rx Instructions: As directed for urostomy. (DME) MicroHesive Stoma Paste Paste See Rx Instructions .Route Qty: 60 5RF Rx Instructions: Securi-T stoma paste. (DME) adhesive tape 1 X 10 -yard tape See Rx Instructions .Route Qty: 120 3RF Rx Instructions: As directed albuterol sulfate 90 mcg/actuation HFA aerosol inhaler 1 puff PO QID PRN (Reason: Shortness Of Breath) bisacodyl [Dulcolax (bisacodyl)] 5 mg tablet,delayed release (DR/EC) 5 mg PO DAILY gentamicin in NaCl (iso-osm) 120 mg/100 mL piggyback 260 mg IV Q36H Rx Instructions: next dose is Jun 20 at 8 am ascorbic acid (vitamin C) [Vitamin C] 1,000 mg Tablet 1,000 mg PO DAILY atorvastatin 20 mg tablet 20 mg PO BEDTIME telmisartan 20 mg tablet 20 mg PO DAILY oseltamivir [Tamiflu] 75 mg capsule 75 mg PO BID 5 Days Qty: 10 0RF codeine-guaifenesin 7.5-225 mg/5 mL liquid 5 ml PO Q6H PRN (Reason: cough) 5 Days Qty: 473 0RF montelukast 10 mg tablet 10 mg PO DAILY (DME) FreeStyle Lite Strips Strip See Rx Instructions Not Applicable DAILY Qty: 10 Rx Instructions: As directed (DME) lancets [FreeStyle Lancets] 28 gauge misc See Rx Instructions topical BID Qty: 100 Rx Instructions: As directed folic acid 1 mg tablet 1 mg PO DAILY Interventions: ED Discharge Assessment Last Done: 06/22/25 08:11 Discharge Date/Time: 06/22/25 08:36 Print Language: Kinyarwanda
[2025-06-22 08:10] VITALS: BP 132/69; PULSE 70; RESP 20; TEMP 36.4; O2SAT 99
[2025-06-22 08:11] VITALS: BP 132/69; PULSE 70; RESP 20; TEMP 36.4; O2SAT 99
== END 2025-06-22 08:36 | disposition home or self-care (01) ==
PROVIDERS: Emergency Provider Emergency Medicine; PCP Internal Medicine
DX: N39.0 Urinary tract infection, site not specified (principal); Z79.899 Other long term (current) drug therapy
CPT/HCPCS: 96365; 99284; J1580